=== PATIENT | female | born 1955 | race Caucasian/White ===

== ENCOUNTER 2018-06-07 01:28 | Outpatient (CLI) | payer BC, SELFPAY ==
[2018-06-07 12:56] LABS: Hemoglobin A1C 4.8 % (4.5-6.2)
[2018-06-07 12:59] LABS: COMMENT (LAB VIEW ONLY) 171.27 mg/dL; Microalb ug/mg Crea 4.8 ug/mg Cr
== END 2018-06-07 01:48 ==
PROVIDERS: PCP Family Medicine; Visit Provider Family Medicine
DX: E11.9 Type 2 diabetes mellitus without complications (principal)
CPT/HCPCS: 36415; 82043; 82570; 83036

== ENCOUNTER 2018-06-14 13:40 | Outpatient (CLI) | payer BC, SELFPAY ==
--- NOTE | 2018-06-14 13:32 | DI.RAD_ITS ---
SYMPTOMS/DIAGNOSIS: LT FOOT PAIN, M79.672, CELLULITIS, L03.90 LEFT FOOT: There are moderate degenerative changes involving the first metatarsal phalangeal joint and mild to moderate DJD involving the intertarsal and tarsal metatarsal joints are demonstrated. There is a 9 mm calcaneal spur. The examination is otherwise unremarkable.
[2018-06-14 14:16] LABS: Abs Immature Grans 0.01 k/cumm (0.0-0.09); Absolute Basophil Count 0.03 k/cumm (0.0-0.2); Absolute Lymphocyte Count 1.18 k/cumm (1.2-3.4); Absolute Monocyte Count 0.39 k/cumm (0.11-0.7); Absolute Neutrophil Count 2.49 k/cumm (1.2-6.7); Basophils % 0.7; Eosinophils % 4.7; HGB 13.9 g/dL (12.0-15.5); Immature Grans % 0.2; Lymphocytes % 27.4; Mean Corp. HGB Concentration 33.9 g/dL (32.0-36.0); Mean Corpuscular Hemoglobin 32.5 pg (27.0-33.0); Mean Corpuscular Volume 95.8 fL (80-95); Mean Platelet Volume 10.5 fL (8.0-11.0); Monocytes % 9.1; Neutrophils % 57.9; Platelet Count 86 x1000/uL (130-400); RBC 4.28 m/cumm (4.00-5.20); RBC Distribution Width 14.3 % (11.7-14.6)
[2018-06-14 14:44] LABS: Diff Comment PLT Morph Reviewed
[2018-06-14 15:11] LABS: C-Reactive Protein 2.47 mg/dL (0.0-0.3)
[2018-06-14 15:35] LABS: ESR 29 MM/HR (0-30)
[2018-06-14 15:57] LABS: Hemoglobin A1C 4.9 % (4.5-6.2)
== END 2018-06-14 14:00 ==
PROVIDERS: PCP Family Medicine; Visit Provider Family Medicine
DX: M79.672 Pain in left foot (principal); L03.116 Cellulitis of left lower limb; M19.072 Primary osteoarthritis, left ankle and foot; M77.32 Calcaneal spur, left foot; E11.9 Type 2 diabetes mellitus without complications
CPT/HCPCS: 36415; 85652; 73630; 83036; 85025; 86140

== ENCOUNTER 2019-04-11 10:34 | Inpatient (IN) | payer MEDICARE, BC, SELFPAY ==
[2019-04-11] VITALS (9 sets, daily range): BP systolic 101–144; BP diastolic 38–65; PULSE 71–103; RESP 16–20; TEMP 36.3–38.5; O2SAT 92–97
--- NOTE | 2019-04-11 10:43 | ED.GENADUL_ITS ---
Discharge Plan Disposition Patient Disposition: [facility] INPATIENT Condition: Poor Discharge Details Chief Complaint: Fever Clinical Impression: Sepsis, Cellulitis Admit Date/Time: 04/11/19 14:08 Admit Provider: Elliott Aguilar Attending Provider: Elliott Aguilar Primary Care Provider: Malu Baron ED Provider: Aki Oliva Discharge Data Discharge Date/Time-TO BE ENTERED AT DEPARTURE: 04/11/19 15:41 Medical Decision Making Patient presenting to the emergency department chief complaint of generalized malaise. Family member states since last night patient has been having a fever chills, and overall not feeling well. Today daughter states that patient seems more sedate and even had a hard time staying awake. Patient denies any focal complaints but daughter does state chronic wound of left lower extremity. Physical exam shows small open wound without drainage to left dorsal foot, bilateral lower extremity edema from the knee down, soft nontender nonrigid no peritoneal findings of the abdomen, patient does have known murmur, clear lung sounds, normal HEENT, patient is alert and oriented, slightly sedate but appropriately responding with no focal neurological deficits. Plan to check labs, blood cultures, urinalysis. Initial labs are reviewed and show elevated lactate of 3.9, nonspecific leukocytosis with WBCs of 11.77, CMP showing elevated bilirubin of 6.9 which is more elevated than patient's norm, AST of 51, alk phos of 155. Urine shows significant amount of proteins ketones and blood with moderate bilirubin but no leukocyte esterase, no nitrate. Pending radiological imaging of the chest and a bdomen patient treated with empiric antibiotics for fever of unknown source at this point but Vanco and Zosyn were ordered. IV fluids also ordered. Troponin was resulted at 0.12 which is indeterminate at this point with no EKG changes I feel this is more demand related. We will continue to monitor. Review of CT imaging and radiologist dictation shows no acute findings. Chest x-ray shows findings just above CHF. BNP was ordered and shows elevation to 982. Given the patient is febrile, tachycardiac, and elevated lactate I feel that patient meets sepsis criteria. Only possible source of wound is left lower extremity but I am not completely convinced this is her source of fever. Either way patient's infection should be covered by Vanco and Zosyn already ordered. Did call and speak with Dr. Aguilar about admission of patient. He agreed to have patient admission and bridge orders were placed. 3-hour troponin was ordered to assess for any further changes. Lab Data Lab results reviewed: Yes I reviewed the patient's lab results. ECG Data Attestation: I personally reviewed and interpreted this ECG (s) as follows: Prior ECG tracings: available for review Interpretation: EKG reviewed with attending physician Dr. Pretty and shows sinus rhythm with rate of 94, no acute ischemic changes noted, nondiagnostic. Reviewed previous EKG from 03/20/2016 and no changes noted HPI General Mode of arrival: wheelchair . Date/Time Provider Initiated Documentation: 04/11/19 10:35 . Limitations to Documentation: no limitations . Information obtained by: patient, family and RN notes reviewed . History of Present Illness 64 year old F presents to the emergency department with the chief complaint of Generalized malaise, Quality is described as other (Denies pain), Patient started experiencing this day(s) (1) and it has been constant. No exacerbating factors reported . Patient notes fever/chills. Patient did receive the following treatments prior to arrival, none Related Data Home Medications Medication Instructions Recorded Confirmed zinc sulfate 220 mg PO DAILY #90 tab-cap 01/10/17 04/11/19 pen needle, diabetic [BD #180 12/18/17 02/25/19 Ultra-Fine Orig Pen Needle] pantoprazole 40 mg PO DAILY #180 tab 02/22/18 04/11/19 ondansetron HCl 4 mg tablet 4 mg PO DAILY PRN #90 tab-cap 06/04/18 04/11/19 ferrous sulfate 325 mg (65 mg 325 mg PO DAILY tab 06/11/18 04/11/19 iron) tablet blood sugar diagnostic #300 strip 09/13/18 02/25/19 sucralfate 1 gram tablet 1 gm PO AC & HS #360 tab 10/22/18 04/11/19 lactulose 20 gram/30 mL oral 10 gm PO TID #1350 ml 12/18/18 04/11/19 solution insulin glargine 100 unit/mL (3 15 unit SUB-Q QAM ml 12/25/18 04/11/19 mL) subcutaneous pen rifaximin 550 mg tablet 550 mg PO BID #180 tab 01/28/19 04/11/19 furosemide 20 mg tablet 40 mg PO DAILY #180 cap 03/11/19 04/11/19 insulin lispro 200 unit/mL (3 mL) 6 unit SUBCUT BID #15 ml 03/26/19 04/11/19 subcutaneous pen pregabalin 100 mg capsule 100 mg PO TID #270 cap 04/08/19 04/11/19 Previous Rx's Medication Instructions Recorded pen needle, diabetic [BD #180 12/18/17 Ultra-Fine Orig Pen Needle] pantoprazole 40 mg PO DAILY #180 tab 02/22/18 ondansetron HCl 4 mg tablet 4 mg PO DAILY PRN #90 tab-cap 06/04/18 blood sugar diagnostic #300 strip 09/13/18 sucralfate 1 gram tablet 1 gm PO AC & HS #360 tab 10/22/18 lactulose 20 gram/30 mL oral 10 gm PO TID #1350 ml 12/18/18 solution rifaximin 550 mg tablet 550 mg PO BID #180 tab 01/28/19 furosemide 20 mg tablet 40 mg PO DAILY #180 cap 03/11/19 insulin lispro 200 unit/mL (3 mL) 6 unit SUBCUT BID #15 ml 03/26/19 subcutaneous pen pregabalin 100 mg capsule 100 mg PO TID #270 cap 04/08/19 Allergies Allergy/AdvReac Type Severity Reaction Status Date / Time gabapentin Allergy Intermediate Local Unverified 04/11/19 14:31 reaction on skin Review of Systems Constitutional Reports chills, Reports fatigue, Reports fever(s), Denies headache(s), Reports lethargy, Reports malaise and Reports poor appetite ENT Denies headache(s) Cardiovascular Denies chest pain and Denies dyspnea Respiratory Denies cough and Denies dyspnea Gastrointestinal Denies abdominal pain, Denies bloating, Denies diarrhea and Denies vomiting Genitourinary Denies difficulty voiding, Denies dysuria and Reports other (Daughter reports darkened urine) Integumentary/Breasts Reports wounds (Chronic wound left lower foot) Neurologic Denies headache(s) Endocrine Reports fatigue [facility] Medical History Abdominal pain, chronic, epigastric (Resolved 03/23/16) Annual physical exam (Resolved 02/22/18) Bleeding esophageal varices (Resolved 03/10/16) Carpal tunnel syndrome (Resolved) Cervical disc disorder with myelopathy (Resolved) Cervical disc disorder with myelopathy (Resolved 09/04/12) Chronic epigastric pain (Chronic 03/23/16) Edema, unspecified (Resolved) Elev transaminase/LDH (Resolved) Elevation of level of transaminase and lactic acid dehydrogenase (LDH) (Chronic) Esophageal varices with hemorrhage Fever, unknown origin (Resolved) GI bleed (Resolved) Hepatic encephalopathy Incisional hernia (Resolved 01/15/15) Incisional hernia (Chronic 01/15/15) Mild epistaxis (Resolved) Thyroid nodule (Resolved) Surgical History Colonoscopy - IV Sedation (04/12/13) Open Carpal Tunnel release PROCEDURES S/P carpal tunnel release (Resolved) S/P cervical spinal fusion (Resolved) S/P cervical spinal fusion (Resolved) S/P tonsillectomy (Resolved) Status post biopsy of thyroid gland (Resolved) Status post carpal tunnel release (Resolved) Status post cervical spinal arthrodesis (Resolved) Status post tonsillectomy (Resolved) Tonsillectomy Family History Mother Pancreatic cancer Father Diabetes Essential hypertension Stroke Sister Heart disease Brother Bone cancer Liver cancer Maternal Grandfather No problems noted. Paternal Grandfather No problems noted. Maternal Grandmother No problems noted. Paternal Grandmother Breast cancer Sister Diabetes Colon cancer Rectal cancer Sister Diabetes Son No problems noted. Son No problems noted. Daughter No problems noted. Daughter Alcohol abuse Asthma Social History Smoking/Tobacco Use Status: Former Tobacco Use Alcohol Intake: never Drug use: Never Household members: spouse and children Housing: house Communication Needs: None Do you need help understanding health information?: Rarely Pets and animals: Yes Pets and animals: dog(s) Sexually active: No Do you think of yourself as: straight/heterosexual Current gender identity: female What is your relationship status?: How often do you talk on the phone with friends or family?: three or more times per week How often do you get together with friends or relatives?: once per week How often do you attend baptism or holiness services?: 1-3 times per year Do you belong to any clubs or organized social groups?: no Panel score (0-1 are the most socially isolated patients): 2 What type of physical activity do you participate in: decline to answer Duration: < 15 minutes/day Frequency: 1-2 times per week Lyubov/Uatsdin: Worship Special lyubov needs: No Seatbelt use: always Helmet use: No Drive intox or ride w/intox meals on wheels driver: No Do you feel safe in your relationship?: Yes Exam Const General: cooperative and ill appearing Orientation: alert, awake and oriented x3 HENMT Head: normal to inspection and normocephalic Ears: hearing grossly normal bilaterally, external ears normal and TM's normal bilaterally General nose exam: external nose normal Mouth: oral mucosae normal, lip normal, tongue normal and moist mucous membranes Throat: posterior oropharynx normal Eyes Sclera: scleral abnormality bilaterally other (Scleral icterus) Resp Effort & Inspection: normal respiratory effort, able to speak in complete sentences and no respiratory distress Auscultation: clear to auscultation bilaterally Cardio Rate: regular rate Rhythm: regular rhythm Heart Sounds: murmur systolic holo and IV/ GI Inspection: distended Palpation: soft, not firm, no guarding, no hepatomegaly, not rigid and nontender Auscultation: normal bowel sounds Back/Spine/Pelvis Back: no CVA tenderness Neuro General: alert, awake, oriented x3, moves all extremities, no focal motor deficits and CN's II-XI intact bilaterally Sensory Exam: no sensory deficits noted Extrem General: edema Laterality: bilateral (3+) Course Lab/Test Results Lab/Test Results: 04/11/19 10:39 Blood Blood Culture - Pending 04/11/19 10:39 Blood Blood Culture - Pending
[2019-04-11] MEDS: Normal Saline Flush 10 ML SYR IVP (10:50)
[2019-04-11 11:06] LABS: Abs Immature Grans 0.03 k/cumm (0.0-0.09); Absolute Basophil Count 0.01 k/cumm (0.0-0.2); Absolute Eosinophil Count 0.01 k/cumm (0.0-0.7); Absolute Lymphocyte Count 0.61 k/cumm (1.2-3.4); Absolute Monocyte Count 0.64 k/cumm (0.11-0.7); Basophils % 0.1; Eosinophils % 0.1; HCT 40.7 % (36.0-46.0); HGB 14.2 g/dL (12.0-15.5); Immature Grans % 0.3; Lymphocytes % 5.2; Mean Corp. HGB Concentration 34.9 g/dL (32.0-36.0); Mean Corpuscular Hemoglobin 33.6 pg (27.0-33.0); Mean Corpuscular Volume 96.2 fL (80-95); Mean Platelet Volume 10.2 fL (8.0-11.0); Monocytes % 5.4; RBC 4.23 m/cumm (4.00-5.20); RBC Distribution Width 14.9 % (11.7-14.6); White Blood Cell Count 11.77 k/cumm (4.4-10.8)
[2019-04-11 11:12] LABS: Lactate-non-spesis 3.9 mmol/l (0.6-1.4)
[2019-04-11 11:20] LABS: Absolute Neutrophil Count 10.46 k/cumm (1.2-6.7); Platelet Count 67 x1000/uL (130-400)
[2019-04-11 11:21] LABS: Ammonia 14 umol/L (11-32); Neutrophils % 88.9
[2019-04-11 11:22] LABS: Diff Comment Diff Reviewed; RBC Morphology Normal
[2019-04-11] MEDS: Normal Saline 250 ML 500 ML IV (11:30)
[2019-04-11 11:37] LABS: ALT 31 U/L (12-78); AST 51 U/L (15-37); Albumin 2.3 g/dL (3.4-5.0); Alkaline Phosphatase 155 U/L (46-116); Anion Gap 11.1 mmol/L (3-11); BUN 14 mg/dL (7-18); Bilirubin, Total 6.9 mg/dL (0.2-1.0); CO2 25.9 mmol/L (21.0-32.0); CREATININE 0.93 mg/dL (0.55-1.02); Calcium 8.5 mg/dL (8.5-10.1); Chloride 102 mmol/L (98-107); Glucose 178 mg/dL (70-100); Magnesium 1.3 mg/dL (1.8-2.4); Potassium 3.5 mmol/L (3.5-5.1); Sodium 139 mmol/L (136-145)
[2019-04-11 11:37] LABS: Bilirubin Moderate (Negative); Blood Moderate (Negative); Clarity Sl Cloudy (Clear); Glucose Negative (Negative); Ketones 15 mg/dL (Negative); Leukocyte Esterase Negative (Negative); Nitrite Negative (Negative); Specific Gravity 1.025 (1.005-1.025); Urobilinogen 0.2 EU/dL (Up TO 0.2)
[2019-04-11 11:39] LABS: Troponin I 0.12 ng/mL (0.00-0.06)
--- NOTE | 2019-04-11 11:44 | DI.RAD_ITS ---
SYMPTOMS/DIAGNOSIS: FEVER AP AND LATERAL CHEST: Comparison is made with [id number]. The exam is somewhat limited by the patient's body habitus and technique. The heart appears mildly enlarged. There are bilateral increased vascular markings and mildly increased symmetric interstitial markings which could indicate mild CHF. No focal infiltrate or effusion is seen. IMPRESSION: Mild cardiomegaly and mild CHF.
--- NOTE | 2019-04-11 11:44 | DI.CT_ITS ---
SYMPTOMS/DIAGNOSIS: FEVER, CIRRHOSIS CT OF THE ABDOMEN AND PELVIS: Comparison is made with [id number]. A cirrhotic appearing liver with tip shunt is again noted. Metallic coils are seen in the left upper and upper mid abdomen. There is stable splenomegaly. No abscess or free air is seen. There is diffuse body edema. There is a trace amount of mesenteric fluid. The lung bases are clear. No bowel dilatation or inflammatory changes are seen. The adrenals are unremarkable. There is a tiny nonobstructing stone in the mid left kidney. The bladder, uterus and ovaries are unremarkable. Fatty containing umbilical and infraumbilical hernias are again noted. IMPRESSION: Stable appearance of cirrhotic liver and splenomegaly. There is body wall edema and minimal fluid in the pelvis. No acute abnormality is seen.
[2019-04-11 12:02] LABS: Epithelial Cells Few HPF (Negative); RBC >50 (0-2)
[2019-04-11 12:03] LABS: Bacteria Many HPF (Negative); C & S Indicated? Yes; Casts 3-5 Fine Granular LPF (Negative); Crystals Negative HPF (Negative); Mucus Moderate (Negative); Other Cells Moderate Renal (Negative)
[2019-04-11 12:28] LABS: NT-proBNP 982 pg/mL
[2019-04-11] MEDS: Omnipaque 350 MG/ML 100 ML BTL IJ ×2 (12:47→19:04)
[2019-04-11] MEDS: Normal Saline 250 ML IV (13:07)
[2019-04-11] MEDS: Ibuprofen 600 MG TAB PO (13:08)
[2019-04-11] MEDS: PIPERACILLIN/TAZO 3.375 GM in Normal Saline 50 ML IVPB (13:23)
[2019-04-11] MEDS: VANCOMYCIN 1,250 MG in Normal Saline 250 ML 166.667 MG IVPB (13:58)
[2019-04-11 16:09] LABS: Troponin I 0.14 ng/mL (0.00-0.06)
--- NOTE | 2019-04-11 17:06 | W.PM.HP.N ---
Date of service: 04/11/19 Time of Service: 17:07 Assessment and Plan (1) Fever: Current visit: Yes Status: Acute Evidence of fever, leukocytosis, and elevated lactate, and now with development of tachycardia and hypotension. Suspect infectious etiology - however, with negative urinalysis and CXR, and LE exam is not overtly impressive for cellulitis at this time. - Await Blood Cultures. - CT a/p without infectious pathology, and CXR without infiltrate. Obtain CT Chest to ensure lack of pathology. - Potential for volume overload by CXR and patient's history of - however, given development of hypotension and tachycardia will benefit from fluids, with careful monitoring of volume status. Continue Vancomycin/Zosyn empircally. (2) Aortic stenosis, severe: Current visit: No Status: Acute Severe, with preserved LVEF. - Monitor volume status carefully. - Continue current diuretic therapy with Furosemide. May ultimately require some diuresis, but currently with potential development of sepsis and requiring fluids. Monitor respiratory status carefully. - Avoid vasodilators. (3) Cirrhosis: Current visit: No Status: Chronic S/p TIPS in 2016. Continue Lasix - intolerant of Spironolactone in the past. Also on Lactulose and Rifaxan in the past, with a prior history of hepatic encephalopathy. (4) Diabetes mellitus: Current visit: No Status: Chronic Continue lantus, initiate sliding scale. (5) DVT prophylaxis: Current visit: Yes Status: Acute History of Cirrhosis, esophageal Varices, but with synthetic function intact, essentially normal INR, and s/p TIPS. initiate SC Heparin, but monitor Hgb carefully. (6) Advance directive on file: Current visit: Yes Status: Acute Full Code. History of Present Illness Chief Complaint: Fever, Malaise Narrative: 64 year old woman with a prior history of LE Cellulitis and Cirrhosis, being admitted from [facility] Emergency Department on 04/11 with a diagnosis of Fever. Mrs. Calle has a Past Medical History significant for Non-alcoholic Steatohepatitis diagnosed in 2016 following a GIB. She had been hospitalized with reported Hematemesis, with ensuing endoscopy and inadvertent biopsy of a Gastric Varix which caused significant blood loss and acute transfer to tertiary center. [place] [facility] [place] was diagnosed with Cirrhosis of the liver, Portal Hypertension, and Hepatic Encephalopathy requiring an urgent TIPS procedure. Her other history includes obesity, HTN, Dyslipidemia, Chronic Venous Stasis, IDDM, and PHTN. Her ECHO from earlier this month also showed evidence of severe Aortic Stenosis with an intact LVEF. She has what appears to be a somewhat chronic The patient presented to the ED at the urging of her daughter, with a reported 1-2 day course of feeling unwell. She reported subjective nausea and decreased appetite, and daughter states that she had a documented fever at home. Work-up in the ED showed evidence of a fever and tachycardia, mild leukocytosis, and elevated Lactate. Her EKG was unchanged, and troponin was minimally and equivocally elevated, essentially unchanged on recheck. Urinalysis was negative for infection, CXR showed potential mild CHF, and CT a/p was remarkable for stable cirrhosis and splenomegally. She was admitted for further evaluation and treatment. Review of Systems Review of Systems All systems reviewed & are unremarkable except as noted in HPI and below PFSH Medical History Abdominal pain, chronic, epigastric (Resolved 03/23/16) Annual physical exam (Resolved 02/22/18) Bleeding esophageal varices (Resolved 03/10/16) Carpal tunnel syndrome (Resolved) Cervical disc disorder with myelopathy (Resolved) Cervical disc disorder with myelopathy (Resolved 09/04/12) Chronic epigastric pain (Chronic 03/23/16) Edema, unspecified (Resolved) Elev transaminase/LDH (Resolved) Elevation of level of transaminase and lactic acid dehydrogenase (LDH) (Chronic) Esophageal varices with hemorrhage Fever, unknown origin (Resolved) GI bleed (Resolved) Hepatic encephalopathy Incisional hernia (Resolved 01/15/15) Incisional hernia (Chronic 01/15/15) Mild epistaxis (Resolved) Thyroid nodule (Resolved) Surgical History Colonoscopy - IV Sedation (04/12/13) Open Carpal Tunnel release PROCEDURES S/P carpal tunnel release (Resolved) S/P cervical spinal fusion (Resolved) S/P cervical spinal fusion (Resolved) S/P tonsillectomy (Resolved) Status post biopsy of thyroid gland (Resolved) Status post carpal tunnel release (Resolved) Status post cervical spinal arthrodesis (Resolved) Status post tonsillectomy (Resolved) Tonsillectomy Family History Mother Pancreatic cancer Father Diabetes Essential hypertension Stroke Sister Heart disease Brother Bone cancer Liver cancer Maternal Grandfather No problems noted. Paternal Grandfather No problems noted. Maternal Grandmother No problems noted. Paternal Grandmother Breast cancer Sister Diabetes Colon cancer Rectal cancer Sister Diabetes Son No problems noted. Son No problems noted. Daughter No problems noted. Daughter Alcohol abuse Asthma Social History Smoking/Tobacco Use Status: Former Tobacco Use Alcohol Intake: never Drug use: Never Household members: spouse and children Housing: house Communication Needs: None Do you need help understanding health information?: Rarely Pets and animals: Yes Pets and animals: dog(s) Sexually active: No Do you think of yourself as: straight/heterosexual Current gender identity: female What is your relationship status?: How often do you talk on the phone with friends or family?: three or more times per week How often do you get together with friends or relatives?: once per week How often do you attend taoist or sikh services?: 1-3 times per year Do you belong to any clubs or organized social groups?: no Panel score (0-1 are the most socially isolated patients): 2 What type of physical activity do you participate in: decline to answer Duration: < 15 minutes/day Frequency: 1-2 times per week Lyubov/Roman Catholic: Presybeterian Special lyubov needs: No Seatbelt use: always Helmet use: No Drive intox or ride w/intox local company flatbed truck driver: No Do you feel safe in your relationship?: Yes Meds Home Medications Medication Instructions Recorded Confirmed Type zinc sulfate 220 mg PO DAILY #90 tab-cap 01/10/17 04/11/19 History pen needle, diabetic [BD #180 12/18/17 02/25/19 Rx Ultra-Fine Orig Pen Needle] pantoprazole 40 mg PO DAILY #180 tab 02/22/18 04/11/19 Rx ondansetron HCl 4 mg tablet 4 mg PO DAILY PRN #90 tab-cap 06/04/18 04/11/19 Rx ferrous sulfate 325 mg (65 mg 325 mg PO DAILY tab 06/11/18 04/11/19 History iron) tablet blood sugar diagnostic #300 strip 09/13/18 02/25/19 Rx sucralfate 1 gram tablet 1 gm PO AC & HS #360 tab 10/22/18 04/11/19 Rx lactulose 20 gram/30 mL oral 10 gm PO TID #1350 ml 12/18/18 04/11/19 Rx solution insulin glargine 100 unit/mL (3 15 unit SUB-Q QAM ml 12/25/18 04/11/19 History mL) subcutaneous pen rifaximin 550 mg tablet 550 mg PO BID #180 tab 01/28/19 04/11/19 Rx furosemide 20 mg tablet 40 mg PO DAILY #180 cap 03/11/19 04/11/19 Rx insulin lispro 200 unit/mL (3 mL) 6 unit SUBCUT BID #15 ml 03/26/19 04/11/19 Rx subcutaneous pen pregabalin 100 mg capsule 100 mg PO TID #270 cap 04/08/19 04/11/19 Rx Allergies Allergy/AdvReac Type Severity Reaction Status Date / Time gabapentin Allergy Intermediate Local Unverified 04/11/19 14:31 reaction on skin Exam Narrative Exam Narrative: General: Patient appears acutely ill but not toxic, somnolent but arousable and appropriate Neck: Supple CV: Regular, nontachycardic at time of exam, S1S2, 4/6 RUSB murmur appreciated. Pulmonary: Mild, bibasilar crackles on exam somewhat limited by body habitus Abdomen: + Bowel Sounds, soft, nontender, nondistended but obese in contour Vascular: 2+ b/l LE edema. Skin: Prominent hyperpigmentation of b/l Lower Extremities. Left Leg is perhaps mildly warmer than right, but no significant erythema or cellulitic changes. Very small open wound on left foot that is reported as chronic, without significant purulence, induration, or fluctuance. Psych: Normal mood and affect. Results Imaging Chest x-ray: report reviewed and image reviewed Abdomen CT scan report/results: report reviewed Labs : 04/11/19 10:50 04/11/19 10:50 Laboratory Results - last 24 hr 04/11/19 04/11/19 04/11/19 10:50 10:50 10:50 WBC RBC Hgb Hct MCV MCH MCHC RDW Plt Count MPV Immature Gran % Neutrophils % Lymphocytes % Monocytes % Eosinophils % Basophils % Absolute Neutrophils Absolute Lymphocytes Absolute Monocytes Absolute Eosinophils Absolute Basophils Differential Comment RBC Morphology Sodium 139 Potassium 3.5 Chloride 102 Carbon Dioxide 25.9 Anion Gap 11.1 H BUN 14 Creatinine 0.93 Estimated GFR/1.73 m2 >= 60.00 Glucose 178 H Lactate 3.9 H Calcium 8.5 Magnesium 1.3 L Total Bilirubin 6.9 H AST 51 H ALT 31 Alkaline Phosphatase 155 H Ammonia 14 Troponin I 0.12 H* NT-Pro-B Natriuret Pep Total Protein 6.0 L Albumin 2.3 L Urine Color Urine Clarity Urine pH Ur Specific [place] Urine Protein Urine Ketones Urine Blood Urine Nitrite Urine Bilirubin Urine Urobilinogen Ur Leukocyte Esterase Urine RBC Urine WBC Ur Epithelial Cells Urine Crystals Urine Bacteria Urine Casts Urine Mucus Urine Other Ur Culture Indicated? Urine Glucose 04/11/19 04/11/19 04/11/19 10:50 10:50 10:50 WBC 11.77 H RBC 4.23 Hgb 14.2 Hct 40.7 MCV 96.2 H MCH 33.6 H MCHC 34.9 RDW 14.9 H Plt Count 67 L MPV 10.2 Immature Gran % 0.3 Neutrophils % 88.9 Lymphocytes % 5.2 Monocytes % 5.4 Eosinophils % 0.1 Basophils % 0.1 Absolute Neutrophils 10.46 H Absolute Lymphocytes 0.61 L Absolute Monocytes 0.64 Absolute Eosinophils 0.01 Absolute Basophils 0.01 Differential Comment Diff reviewed RBC Morphology Normal Sodium Potassium Chloride Carbon Dioxide Anion Gap BUN Creatinine Estimated GFR/1.73 m2 Glucose Lactate Calcium Magnesium Cancelled Total Bilirubin AST ALT Alkaline Phosphatase Ammonia Troponin I Cancelled NT-Pro-B Natriuret Pep 982 H Total Protein Albumin Urine Color Urine Clarity Urine pH Ur Specific [place] Urine Protein Urine Ketones Urine Blood Urine Nitrite Urine Bilirubin Urine Urobilinogen Ur Leukocyte Esterase Urine RBC Urine WBC Ur Epithelial Cells Urine Crystals Urine Bacteria Urine Casts Urine Mucus Urine Other Ur Culture Indicated? Urine Glucose 04/11/19 04/11/19 11:25 14:12 WBC RBC Hgb Hct MCV MCH MCHC RDW Plt Count MPV Immature Gran % Neutrophils % Lymphocytes % Monocytes % Eosinophils % Basophils % Absolute Neutrophils Absolute Lymphocytes Absolute Monocytes Absolute Eosinophils Absolute Basophils Differential Comment RBC Morphology Sodium Potassium Chloride Carbon Dioxide Anion Gap BUN Creatinine Estimated GFR/1.73 m2 Glucose Lactate Calcium Magnesium Total Bilirubin AST ALT Alkaline Phosphatase Ammonia Troponin I 0.14 H* NT-Pro-B Natriuret Pep Total Protein Albumin Urine Color Jenna Urine Clarity Sl cloudy Urine pH 5.0 Ur Specific [place] 1.025 Urine Protein 30 H Urine Ketones 15 H Urine Blood Moderate H Urine Nitrite Negative Urine Bilirubin Moderate H Urine Urobilinogen 0.2 Ur Leukocyte Esterase Negative Urine RBC >50 H Urine WBC 5-10 Ur Epithelial Cells Few Urine Crystals Negative Urine Bacteria Many Urine Casts 3-5 fine granular Urine Mucus Moderate Urine Other Moderate renal Ur Culture Indicated? Yes Urine Glucose Negative Last Vital Signs Temp 36.5 C 04/11/19 16:36 Pulse 103 H 04/11/19 16:36 Resp 19 04/11/19 16:36 BP 101/48 L 04/11/19 16:36 Pulse Ox 95 04/11/19 16:36
[2019-04-11] MEDS: MAGNESIUM SULFATE 4 GM/100 ML BAG IVPB (17:38)
[2019-04-11] MEDS: Enoxaparin 40 MG/0.4 ML SYR SC (18:12)
[2019-04-11] MEDS: Insulin Aspart 300 UNITS/3 ML PEN SC (18:13)
[2019-04-11] MEDS: Potassium Chloride 20 MEQ TABCR 40 MEQ PO (18:23)
--- NOTE | 2019-04-11 19:05 | DI.CT_ITS ---
SYMPTOM/DIAGNOSIS: RULE OUT PNEUMONIA CHEST CT: Comparison is made with chest x-ray performed earlier the same day. The exam is mildly limited by patient motion. There is a ground glass opacity seen in the left lower lobe laterally which is nonspecific. No pleural or pericardial effusions or focal consolidations seen. There are mild underlying increased interstitial changes throughout the lungs which may represent chronic fibrosis. There is interlobular septal thickening at the lung bases consistent with mild CHF. There is also mild body wall edema. There is asymmetry near the chest wall in the region of the left breast which also likely represents edema. There are coronary artery calcifications as well as mitral aortic valve calcifications. There is enlargement of the left ventricle. The aorta is normal in diameter and shows mild to moderate calcification. There is no adenopathy or suspicious pulmonary nodules. There is a small hiatal hernia. There is a lucency and upper thoracic vertebral body likely representing an hemangioma. Degenerative changes are seen throughout. There is a lower cervical anterior fusion. A TIPP shunt is noted. Varices are noted adjacent to the stomach. IMPRESSION: Mild lower lobe pulmonary edema and body wall edema. Small ground glass opacity in the left lower lobe, infectious or inflammatory.
--- NOTE | 2019-04-11 19:21 | DI.VRAD_ITS ---
EXAM: CT Chest With Contrast EXAM DATE/TIME: 04/11/2019 4:55 PM CLINICAL HISTORY: 64 years old, female; Other: R/O pneumonia TECHNIQUE: Imaging protocol: Axial computed tomography images of the chest with intravenous contrast. Coronal and sagittal reformatted images were created and reviewed. Radiation optimization: All CT scans at this facility use at least one of these dose optimization techniques: automated exposure control; mA and/or kV adjustment per patient size (includes targeted exams where dose is matched to clinical indication); or iterative reconstruction. Contrast material: OMNIPAQUE 350;Contrast volume: 70 ml;Contrast route: IV; COMPARISON: CR XR CHEST 2V PA LATERAL 04/11/2019 12:57 PM FINDINGS: Lungs: There is a small ground glass opacity within the posterior lateral left lower lobe on axial images 39 through 44, nonspecific. Minimal dependent atelectasis and/or scar in the lung bases. No pulmonary consolidation. Pleural space: Unremarkable. No pneumothorax. No pleural effusion. Heart: Unremarkable. No cardiomegaly. No pericardial effusion. Mediastinum: Aorta: Unremarkable. No aortic aneurysm. Lymph nodes: Unremarkable. No enlarged lymph nodes. Bones/joints: Degenerative spondylosis of the thoracic spine. Anterior spinal fusion at C6-C7. Soft tissues: 2 cm diameter focal density within the lateral left breast (axial images 34 through 36). Correlate with mammography. Liver: Hepatic cirrhosis. Status post TIPS. Spleen: Splenomegaly. Multiple embolization coils within the splenic hilum. Other findings: Gastroesophageal varices. IMPRESSION: 1. Nonspecific groundglass opacity within the posterior lateral left lower lobe. 2. Other nonemergent findings as described above. 3. 2 cm diameter focal density within the lateral left breast. Correlate with mammography. Dictated and Authenticated by: Mario Yadav MD. Ordering:CHARLES Gallagher MD
[2019-04-11] MEDS: Normal Saline 1,000 ML 125 ML IV (19:40)
[2019-04-11] MEDS: Pregabalin 100 MG CAP PO (19:42)
[2019-04-11] MEDS: Rifaximin 550 MG TAB PO (19:43)
[2019-04-11] MEDS: Lactulose 20 GM/30 ML CUP 10 GM PO (19:44)
[2019-04-11 19:52] LABS: Procalcitonin 6.3 ng/mL
[2019-04-11 20:23] LABS: Lactate-non-spesis 4.2 mmol/l (0.6-1.4)
[2019-04-11 20:51] LABS: Troponin I 0.09 ng/mL (0.00-0.06)
[2019-04-11] MEDS: Sucralfate 1 GM TAB PO (22:22)
[2019-04-11] MEDS: PIPERACILLIN/TAZO 4.5 GM in Normal Saline 100 ML IVPB (22:23)
[2019-04-12] VITALS (15 sets, daily range): BP systolic 112–145; BP diastolic 61–77; PULSE 72–91; RESP 14–17; TEMP 35.7–38.7; O2SAT 94–98
[2019-04-12] MEDS: PIPERACILLIN/TAZO 4.5 GM in Normal Saline 100 ML IVPB ×3 (06:47→22:22)
[2019-04-12 06:55] LABS: Lactate-non-spesis 2.1 mmol/l (0.6-1.4)
[2019-04-12 07:14] LABS: Abs Immature Grans 0.03 k/cumm (0.0-0.09); Absolute Basophil Count 0.03 k/cumm (0.0-0.2); Absolute Eosinophil Count 0.23 k/cumm (0.0-0.7); Absolute Lymphocyte Count 0.84 k/cumm (1.2-3.4); Absolute Monocyte Count 0.97 k/cumm (0.11-0.7); Absolute Neutrophil Count 6.25 k/cumm (1.2-6.7); Basophils % 0.4; Eosinophils % 2.8; HCT 40.8 % (36.0-46.0); HGB 13.7 g/dL (12.0-15.5); Immature Grans % 0.4; Lymphocytes % 10.1; Mean Corp. HGB Concentration 33.6 g/dL (32.0-36.0); Mean Corpuscular Hemoglobin 32.5 pg (27.0-33.0); Mean Corpuscular Volume 96.9 fL (80-95); Mean Platelet Volume 10.6 fL (8.0-11.0); Monocytes % 11.6; Neutrophils % 74.7; RBC 4.21 m/cumm (4.00-5.20); RBC Distribution Width 14.6 % (11.7-14.6); White Blood Cell Count 8.35 k/cumm (4.4-10.8)
[2019-04-12 07:35] LABS: ALT 30 U/L (12-78); AST 43 U/L (15-37); Alkaline Phosphatase 130 U/L (46-116); Anion Gap 7.4 mmol/L (3-11); BUN 28 mg/dL (7-18); Bilirubin, Direct 2.96 mg/dL (0.00-0.20); Bilirubin, Total 4.7 mg/dL (0.2-1.0); CO2 30.6 mmol/L (21.0-32.0); CREATININE 0.82 mg/dL (0.55-1.02); Calcium 8.2 mg/dL (8.5-10.1); Chloride 104 mmol/L (98-107); Glucose 121 mg/dL (70-100); Magnesium 2.2 mg/dL (1.8-2.4); Potassium 3.5 mmol/L (3.5-5.1); Sodium 142 mmol/L (136-145); Total Protein 5.5 g/dL (6.4-8.2); Troponin I 0.06 ng/mL (0.00-0.06)
[2019-04-12 07:41] LABS: Platelet Count 60 x1000/uL (130-400)
[2019-04-12] MEDS: Pregabalin 100 MG CAP PO ×3 (07:57→19:49)
[2019-04-12] MEDS: Furosemide 40 MG TAB PO (07:58)
[2019-04-12] MEDS: Rifaximin 550 MG TAB PO ×2 (07:58→19:50)
[2019-04-12] MEDS: Sucralfate 1 GM TAB PO ×4 (08:00→22:23)
[2019-04-12] MEDS: Zinc Sulfate 220 MG TAB PO (08:02)
[2019-04-12] MEDS: Pantoprazole 40 MG TABCR PO (08:02)
[2019-04-12] MEDS: Ferrous Sulfate 325 MG TAB PO (08:03)
[2019-04-12] MEDS: Lactulose 20 GM/30 ML CUP 10 GM PO ×3 (08:04→19:48)
[2019-04-12] MEDS: Insulin Glargine 300 UNITS/3 ML PEN 15 UNITS SC (08:08)
[2019-04-12] MEDS: Potassium Chloride 20 MEQ TABCR 40 MEQ PO (11:24)
--- NOTE | 2019-04-12 12:00 | DI.US_ITS ---
SYMPTOMS/DIAGNOSIS: CELLULITIS LT LOWER EXTREMITY, ? DVT LEFT LOWER EXTREMITY ULTRASOUND: Comparison is made with [id number]. Edema is seen in the thigh as well as calf. No deep venous or superficial venous thrombosis is seen. There is no evidence of a mendoza's cyst. Left groin lymph nodes are again noted, the largest measuring 2.5 cm, consistent with a reactive lymph node. IMPRESSION: Significant lower extremity edema. No evidence of DVT.
--- NOTE | 2019-04-12 12:13 | PT.INIE ---
Date of service: 04/11/19 Time of Service: 09:59 PT Notes Inpatient Physical Therapy Evaluation Date: 04/12/2019 Referring Doctor: Elliott Aguilar MD PT Orders: PT CONSULT: Eval/treat Precautions: Fall. Standard. Patient Profile/Admitting Diagnosis: Patient is a 64-year-old female with past medical history significant for diabetes mellitus who presented to the ED on 04/11/2019 with daughter with chief complaints of fever, generalized malaise, difficulty staying awake, and a chronic wound left LE. Patient was diagnosed with fever and aortic stenosis. PMHX: Medical History Abdominal pain, chronic, epigastric (Resolved 03/23/16) Annual physical exam (Resolved 02/22/18) Bleeding esophageal varices (Resolved 03/10/16) Carpal tunnel syndrome (Resolved) Cervical disc disorder with myelopathy (Resolved) Cervical disc disorder with myelopathy (Resolved 09/04/12) Chronic epigastric pain (Chronic 03/23/16) Edema, unspecified (Resolved) Elev transaminase/LDH (Resolved) Elevation of level of transaminase and lactic acid dehydrogenase (LDH) (Chronic) Esophageal varices with hemorrhage Fever, unknown origin (Resolved) GI bleed (Resolved) Hepatic encephalopathy Incisional hernia (Resolved 01/15/15) Incisional hernia (Chronic 01/15/15) Mild epistaxis (Resolved) Thyroid nodule (Resolved) Surgical History Colonoscopy - IV Sedation (04/12/13) Open Carpal Tunnel release PROCEDURES S/P carpal tunnel release (Resolved) S/P cervical spinal fusion (Resolved) S/P cervical spinal fusion (Resolved) S/P tonsillectomy (Resolved) Status post biopsy of thyroid gland (Resolved) Status post carpal tunnel release (Resolved) Status post cervical spinal arthrodesis (Resolved) Status post tonsillectomy (Resolved) Tonsillectomy Social History/Home Situation: Patient lives with and daughter in a two-floor house with two steps to enter with rails on both sides. She has everything she needs on the main floor and does not need to go up to her craft room on the second floor that often. She is independent with all aspects of her ADLs without the need for an assistive ambulatory device nor adaptive equipment. She still drives, cooks meals, and does grocery shopping independently. Equipment Owned/DME: Patient states that her has canes that he previously used Subjective: Patient reports that she feels a lot better compared to when she first got into the ED yesterday. The daughter states that the antibiotic she is taking may have helped a lot. She is more awarke too and hopefully patient can go home with family as soon as she can. When asked if she has used a walker before and if she will use one if needed, she adamantly refused. She denies any headache, chest pains, and dizziness throughout PT session today. She reports that she has had no fevers since early childhood worker today. Objective: General Observation: Patient seen resting on recliner with feet elevated. Brawny edema thruoghout B LE with L>R. Open area on the dorsum between 2nd and 3rd toes on the left foot. IV on the R UE. B TEDS on legs. Mental Status: Alert and oriented x 4 Pain: 1-2/10 on palpation on the medial aspect of the left thigh ROM: Right Upper Extremity: Shoulder Flexion WFL. Shoulder abduction WFL. Elbow flexion WFL. Wrist flexion WFL. Functional opening and closing of hand WFL. Left Upper Extremity: Shoulder Flexion WFL. Shoulder abduction WFL. Elbow flexion WFL. Wrist flexion WFL. Functional opening and closing of hand WFL. Right Lower Extremity: Hip flexion WFL. Hip abduction WFL. Knee flexion WFL. Ankle dorsiflexion WFL. Ankle plantarflexion WFL. Left Lower Extremity: Hip flexion WFL. Hip abduction WFL. Knee flexion WFL. Ankle dorsiflexion WFL. Ankle plantarflexion WFL. Strength: Right Upper Extremity: Shoulder flexors 5/5. Shoulder abductors 5/5. Elbow flexors 5/5. Elbow extensors 5/5. Feeder Worker Power Unit Operator strong. Left Upper Extremity: Shoulder flexors 5/5. Shoulder abductors 5/5. Elbow flexors 5/5. Elbow extensors 5/5. Feeder Worker Power Unit Operator strong. Right Lower Extremity: Hip flexors 5/5. Hip abductors 5/5. Knee flexors 5/5. Knee extensors 5/5. Ankle dorsiflexors 5/5. Ankle plantarflexors 5/5. Left Lower Extremity:Hip flexors 5/5. Hip abductors 5/5. Knee flexors 5/5. Knee extensors 5/5. Ankle dorsiflexors 5/5. Ankle plantarflexors 5/5. Sensation: Intact as to pain and pressure on bilateral lower extremities. Bed Mobility/Transfers: Rolling I Supine to sit I Sit to supine I Sit to stand I Stand to sit I Bed to chair I Chair to bed I Gait: patient was able to ambulate level surface ambulation of 50 feet without an assistive device and without an increase in pain complaint on the L LE Balance: Static Sitting: Normal Dynamic Sitting: Normal Static Standing: Good Dynamic Standing: Good Special Tests: Mobility Limitations Standardized Measure [facility] 6 clicks Basic Mobility Inpatient Short Form: Raw Score: 24 [facility] Score: 0.0% Assessment: Patient is currently at baseline mobility level being able to ambulate at least 50 feet of level surface ambulation without increase in L LE pain and without dyspnea. She does not require any assistive ambulatory device. No skilled physical therapy services are warranted at this time. Patient is assessed as a 97243 low complexity based on the following: History: 64-year-old cognitively intact female with premorbid independent mobility level with diagnosis of severe aortic stenosis Examination: Independent bed mobility, transfer and ambulation task performance Presentation:Evolving Decision Makin Low complexity DISCHARGE RECOMMENDATIONS: Patient is currently at baseline level for all transfer and ambulation task performance using no assistve ambulatory device. No equipment needs at this time. TREATMENT CODE/TIME: 62800 x 34 minutes beginning at 9:59 AM. Thank you very much for this referral. Gill Hill PT, DPT, CLT [facility]
--- NOTE | 2019-04-12 12:19 | PDOC.CMIN ---
- If Service Date Differs Date of service: 04/12/19 Time of Service: 12:19 Care Management Initial Assess REASON FOR HOSPITALIZATION:: fever PAST MEDICAL HISTORY/PAST SURGICAL HISTORY:: Medical History: Abdominal pain, chronic, epigastric (Resolved 03/23/16). Annual physical exam (Resolved 02/22/18). Bleeding esophageal varices (Resolved 03/10/16). Carpal tunnel syndrome (Resolved). Cervical disc disorder with myelopathy (Resolved). Cervical disc disorder with myelopathy (Resolved 09/04/12). Chronic epigastric pain (Chronic 03/23/16). Edema, unspecified (Resolved). Elev transaminase/LDH (Resolved). Elevation of level of transaminase and lactic acid dehydrogenase (LDH) (Chronic). Esophageal varices with hemorrhage. Fever, unknown origin (Resolved). GI bleed (Resolved). Hepatic encephalopathy. Incisional hernia (Resolved 01/15/15). Incisional hernia (Chronic 01/15/15). Mild epistaxis (Resolved). Thyroid nodule (Resolved). Surgical History: Colonoscopy - IV Sedation (04/12/13). Open Carpal Tunnel release. PROCEDURES. S/P carpal tunnel release (Resolved). S/P cervical spinal fusion (Resolved). S/P cervical spinal fusion (Resolved). S/P tonsillectomy (Resolved). Status post biopsy of thyroid gland (Resolved). Status post carpal tunnel release (Resolved). Status post cervical spinal arthrodesis (Resolved). Status post tonsillectomy (Resolved). Tonsillectomy PREVIOUS FUNCTIONAL STATUS/SOCIAL/FAMILY SUPPORTS:: Mayra lives in a single family home in [place] with her and daughter. She has 3 other grown children. Mayra is not currently employed. She is independent with all ADLs and activities. CURRENT FUNCTIONAL STATUS:: Mayra was lying in bed during CM visit. She was pleasnat and courteous and amenable to answering questions. She currently does not have any services at home and does not anticipate needing any at discharge. ADVANCE DIRECTIVES:: Germain Calle [facility] [phone] Has patient been provided with information about the portal?: No Did the patient sign up for the portal?: No CODE STATUS:: Full Code INSURANCE COVERAGE / FINANCIAL ISSUES:: ULISES DIAL CURRENT HOME/COMMUNITY SERVICES/EQUIPMENT:: none currently PRIMARY CARE PHYSICIAN:: Malu Baron POTENTIAL DISCHARGE NEEDS:: Follow up with PCP and discharge plan of care PATIENT/FAMILY EDUCATION NEEDS:: Discharge plan, limitations, follow up plan, Ask Me Three. ANTICIPATED BARRIERS TO DISCHARGE:: none TRANSPORTATION:: via private vehicle with family when ready PLAN:: Mayra is being treated for cellulitis. She will return home with no new services and will be transprted by family. CM will continue to support patient, family and discarge planning needs.
--- NOTE | 2019-04-12 12:44 | PGE_ITS ---
Date of Service Date of service: 04/12/19 Time of Service: 12:44 Assessment and Plan (1) Fever: Current visit: Yes Status: Acute Evidence of fever, leukocytosis, and elevated lactate, with development of tachycardia and hypotension. Suspect infectious etiology - however, with negative urinalysis and CXR, and LE exam is not overtly impressive for cellulitis at time of exam. CT of chest with potential infiltrate as possible cause. - Await Blood Cultures. - Reported episodes of diarrhea at home, worse than baseline loose stools - C.Diff checked and negative. - CT a/p without infectious pathology, and CXR without infiltrate. CT Chest with potential infiltrate as possible etiology for patient's symptoms. Cannot entirely exclude skin infection, but exam at presentation not overtly cellulitic. - Potential for volume overload by imaging, and Mrs. Calle has a history of severe - given development of hypotension and tachycardia patient did benefit from fluids. Appears stable, with resolution of tacycardia and hypotension - will hold IVFs and continue careful monitoring of symptoms. Currently on day #2 of empiric antibiotic therapy. Continue to monitor culture results. (2) Breast mass: Current visit: Yes Status: Acute Ct of the chest interpreted as a 2cm focal density within the left lateral breast, with recommendations for clinical correlation with mammography. However, repeat read by local radiology with asymmetry near the chest wall in the region of the left breast, which likely represents edema. - Will recommend follow-up imaging with Mammography following discharge, as patient is due for mammogram regardless. (3) Aortic stenosis, severe: Current visit: No Status: Acute Severe, with preserved LVEF. - Monitor volume status carefully. IVF's off at this time. - Continue current diuretic therapy with Furosemide. May ultimately require some additional diuresis, but currently with recent resolution of sepsis. Monitor respiratory status carefully. - Avoid vasodilators. - Ensure cardiology follow-up at discharge. (4) Cirrhosis: Current visit: No Status: Chronic S/p TIPS in 2016. Continue Lasix - intolerant of Spironolactone in the past. Also on Lactulose and Rifaxan in the past, with a prior history of hepatic encephalopathy. (5) Diabetes mellitus: Current visit: No Status: Chronic Continue lantus, sliding scale coverage. (6) DVT prophylaxis: Current visit: Yes Status: Acute History of Cirrhosis, esophageal Varices, but with hepatic synthetic function intact, essentially normal INR, and s/p TIPS. Continue SC Heparin, but monitor Hgb carefully. (7) Advance directive on file: Current visit: Yes Status: Acute Full Code. Subjective Interval history since last seen: 64 year old woman with a prior history of LE Cellulitis and Cirrhosis, being admitted from [facility] Emergency Department on 04/11 with a diagnosis of Fever and sepsis. Mrs. Calle has a Past Medical History significant for Non-alcoholic Steatoh epatitis diagnosed in 2016 following a GIB. She had been hospitalized with reported Hematemesis, with ensuing endoscopy and inadvertent biopsy of a Gastric Varix which caused significant blood loss and acute transfer to tertiary center. [place] [facility] [place] was diagnosed with Cirrhosis of the liver, Portal Hypertension, and Hepatic Encephalopathy requiring an urgent TIPS procedure. Her other history includes obesity, HTN, Dyslipidemia, Chronic Venous Stasis, IDDM, and PHTN. Her ECHO from earlier this month also showed evidence of severe Aortic Stenosis with an intact LVEF. She has what appears to be a somewhat chronic appearing bilateral LE discoloration and edema, previously diagnosed with venous stasis without arterial disease, as well as a left foot wound that has caused Celllulitis in the left leg on 2 prior occasions. The patient presented to the ED at the urging of her daughter, with a reported 1-2 day course of feeling unwell. She reported subjective nausea and decreased appetite, and daughter reported a documented fever at home. Work-up in the ED showed evidence of a fever and tachycardia, mild leukocytosis, and elevated Lactate. Her EKG was unchanged, and troponin was minimally and equivocally elevated, essentially unchanged on recheck. Urinalysis was negative for infection, CXR showed potential mild CHF, and CT a/p was remarkable for stable cirrhosis and splenomegally. She was admitted for further evaluation and treatment. Following admission the patient's HR increased and blood pressure decreased, necessitating careful fluid hydration with careful monitoring of volume status given her aortic stenosis. A CT of the chest was obtained showing mild pulmonary edema, with small opacity in the LLL. Her leukocytosis has resolved, lactate improved, and troponin normalized. Procalcitonin was significantly elevated at 8. Of note, a left breast abnormality was also noted on imaging. Mrs. Calle reports improvement overall. No other overnight events reported. Patient is currently afebrile. Exam Narrative Exam Narrative: General: Patient appears acutely ill but not toxic, somnolent but arousable and appropriate Neck: Supple CV: Regular, nontachycardic at time of exam, S1S2, 4/6 RUSB murmur appreciated. Pulmonary: Mild, bibasilar crackles on exam somewhat limited by body habitus Abdomen: + Bowel Sounds, soft, nontender, nondistended but obese in contour Vascular: 2+ b/l LE edema. Skin: Prominent hyperpigmentation of b/l Lower Extremities. Left Leg is perhaps mildly warmer than right, but no significant erythema or cellulitic changes. Very small open wound on left foot that is reported as chronic, without significant purulence, induration, or fluctuance. Psych: Normal mood and affect. Objective Objective Clinical Data: Abnormal lab results 04/11/19 04/11/19 04/11/19 Range/Units 14:12 20:12 20:12 MCV (80-95) fL Plt Count (130-400) x1000/uL Absolute Lymphocytes (1.2-3.4) k/cumm Absolute Monocytes (0.11-0.7) k/cumm BUN (7-18) mg/dL Glucose (70-100) mg/dL Lactate 4.2 H (0.6-1.4) mmol/l Calcium (8.5-10.1) mg/dL Total Bilirubin (0.2-1.0) mg/dL Conjugated Bilirubin (0.00-0.20) mg/dL AST (15-37) U/L Alkaline Phosphatase (46-116) U/L Troponin I 0.14 H* 0.09 H* (0.00-0.06) ng/mL Total Protein (6.4-8.2) g/dL Albumin (3.4-5.0) g/dL 04/12/19 04/12/19 04/12/19 Range/Units 06:45 06:45 06:45 MCV 96.9 H (80-95) fL Plt Count 60 L (130-400) x1000/uL Absolute Lymphocytes 0.84 L (1.2-3.4) k/cumm Absolute Monocytes 0.97 H (0.11-0.7) k/cumm BUN 28 H D (7-18) mg/dL Glucose 121 H (70-100) mg/dL Lactate 2.1 H (0.6-1.4) mmol/l Calcium 8.2 L (8.5-10.1) mg/dL Total Bilirubin 4.7 H (0.2-1.0) mg/dL Conjugated Bilirubin 2.96 H (0.00-0.20) mg/dL AST 43 H (15-37) U/L Alkaline Phosphatase 130 H (46-116) U/L Troponin I (0.00-0.06) ng/mL Total Protein 5.5 L (6.4-8.2) g/dL Albumin 2.0 L (3.4-5.0) g/dL Vital Signs Temperature 37.2 C 04/12/19 12:40 Temperature Source Tympanic 04/12/19 12:40 Pulse 89 04/12/19 12:40 Pulse Rhythm Regular 04/12/19 07:40 Respiratory Rate 17 04/12/19 12:40 Respiratory Effort Non-Labored 04/12/19 07:40 Respiratory Depth Normal 04/12/19 07:40 Respiratory Pattern Normal 04/12/19 07:40 Blood Pressure 145/77 H 04/12/19 12:40 Pulse Oximetry 96 04/12/19 12:40 Oxygen Delivery Method Room Air 04/12/19 12:40 Oxygen Flow Rate 0 04/12/19 12:40 Pain Level 0 04/12/19 12:40 Comment 04/12/19 12:40 Intake & Output 04/11/19 04/12/19 04/12/19 23:59 11:59 23:59 Intake Total 1540.416 / 7438.296 5752.083 / 1087.083 Output Total 850 / 850 1000 / 1000 Balance 690.416 / 690.416 87.083 / 87.083 Weight 109.3 kg 110.1 kg Intake: IV 1140.416 / 1140.416 727.083 / 727.083 Oral 400 / 400 360 / 360 Output: Urine 850 / 850 750 / 750 Stool 250 / 250 Other: Urine Color Dark Jenna Yellow Urine Appearance Clear Clear Urine Odor Strong Normal Stool Size Small Moderate Stool Characteristics Soft Liquid Brown Voiding Methods Toilet Toilet Laboratory Results WBC 8.35 k/cumm (4.4-10.8) 04/12/19 06:45 RBC 4.21 m/cumm (4.00-5.20) 04/12/19 06:45 Hgb 13.7 g/dL (12.0-15.5) 04/12/19 06:45 Hct 40.8 % (36.0-46.0) 04/12/19 06:45 MCV 96.9 fL (80-95) H 04/12/19 06:45 MCH 32.5 pg (27.0-33.0) 04/12/19 06:45 MCHC 33.6 g/dL (32.0-36.0) 04/12/19 06:45 RDW 14.6 % (11.7-14.6) 04/12/19 06:45 Plt Count 60 x1000/uL (130-400) L 04/12/19 06:45 MPV 10.6 fL (8.0-11.0) 04/12/19 06:45 Immature Gran % 0.4 04/12/19 06:45 74.7 04/12/19 06:45 10.1 04/12/19 06:45 11.6 04/12/19 06:45 2.8 04/12/19 06:45 0.4 04/12/19 06:45 Absolute Neutrophils 6.25 k/cumm (1.2-6.7) 04/12/19 06:45 Absolute Lymphocytes 0.84 k/cumm (1.2-3.4) L 04/12/19 06:45 Absolute Monocytes 0.97 k/cumm (0.11-0.7) H 04/12/19 06:45 Absolute Eosinophils 0.23 k/cumm (0.0-0.7) 04/12/19 06:45 Absolute Basophils 0.03 k/cumm (0.0-0.2) 04/12/19 06:45 Diff reviewed 04/11/19 10:50 RBC Morphology Normal 04/11/19 10:50 Sodium 142 mmol/L (136-145) 04/12/19 06:45 Potassium 3.5 mmol/L (3.5-5.1) 04/12/19 06:45 Chloride 104 mmol/L (98-107) 04/12/19 06:45 Carbon Dioxide 30.6 mmol/L (21.0-32.0) 04/12/19 06:45 7.4 mmol/L (3-11) 04/12/19 06:45 BUN 28 mg/dL (7-18) H D 04/12/19 06:45 0.82 mg/dL (0.55-1.02) 04/12/19 06:45 >= 60.00 (mL/min/1.73m2) 04/12/19 06:45 Glucose 121 mg/dL (70-100) H 04/12/19 06:45 2.1 mmol/l (0.6-1.4) H 04/12/19 06:45 Calcium 8.2 mg/dL (8.5-10.1) L 04/12/19 06:45 Magnesium 2.2 mg/dL (1.8-2.4) 04/12/19 06:45 4.7 mg/dL (0.2-1.0) H 04/12/19 06:45 2.96 mg/dL (0.00-0.20) H 04/12/19 06:45 AST 43 U/L (15-37) H 04/12/19 06:45 ALT 30 U/L (12-78) 04/12/19 06:45 130 U/L (46-116) H 04/12/19 06:45 14 umol/L (11-32) 04/11/19 10:50 0.06 ng/mL (0.00-0.06) 04/12/19 06:45 NT-Pro-B Natriuret Pep 982 pg/mL (-299) H 04/11/19 10:50 5.5 g/dL (6.4-8.2) L 04/12/19 06:45 2.0 g/dL (3.4-5.0) L 04/12/19 06:45 8.0 ng/mL 04/11/19 20:12 Jenna (Yellow) 04/11/19 11:25 Sl cloudy (Clear) 04/11/19 11:25 5.0 (5-8) 04/11/19 11:25 Ur Specific [place] 1.025 (1.005-1.025) 04/11/19 11:25 30 mg/dL (Negative) H 04/11/19 11:25 15 mg/dL (Negative) H 04/11/19 11:25 Moderate (Negative) H 04/11/19 11:25 Negative (Negative) 04/11/19 11:25 Moderate (Negative) H 04/11/19 11:25 0.2 EU/dL (Up TO 0.2) 04/11/19 11:25 Ur Leukocyte Esterase Negative (Negative) 04/11/19 11:25 >50 (0-2) H 04/11/19 11:25 5-10 HPF (0-5) 04/11/19 11:25 Ur Epithelial Cells Few HPF (Negative) 04/11/19 11:25 Negative HPF (Negative) 04/11/19 11:25 Many HPF (Negative) 04/11/19 11:25 3-5 fine granular LPF (Negative) 04/11/19 11:25 Moderate (Negative) 04/11/19 11:25 Moderate renal (Negative) 04/11/19 11:25 Ur Culture Indicated? Yes 04/11/19 11:25 Negative mg/dL (Negative) 04/11/19 11:25
[2019-04-12] MEDS: Insulin Aspart 300 UNITS/3 ML PEN SC ×2 (12:48→16:48)
[2019-04-12] MEDS: Ibuprofen 600 MG TAB PO (17:58)
[2019-04-12] MEDS: Mylanta Suspension 30 ML CUP PO (19:49)
[2019-04-12] MEDS: Acetaminophen 325 MG TAB PO (19:49)
[2019-04-13 00:08] VITALS: BP 125/70; PULSE 60; RESP 16; TEMP 36.5; O2SAT 95
[2019-04-13 03:46] VITALS: TEMP 36.3
[2019-04-13] MEDS: PIPERACILLIN/TAZO 4.5 GM in Normal Saline 100 ML IVPB ×2 (07:23→17:31)
[2019-04-13 07:35] VITALS: BP 100/66; PULSE 65; RESP 17; TEMP 36.8; O2SAT 98
[2019-04-13 07:40] LABS: Abs Immature Grans 0.02 k/cumm (0.0-0.09); Absolute Basophil Count 0.04 k/cumm (0.0-0.2); Absolute Eosinophil Count 0.25 k/cumm (0.0-0.7); Absolute Lymphocyte Count 1.19 k/cumm (1.2-3.4); Absolute Monocyte Count 0.67 k/cumm (0.11-0.7); Absolute Neutrophil Count 2.45 k/cumm (1.2-6.7); Basophils % 0.9; Eosinophils % 5.4; HCT 36.2 % (36.0-46.0); Immature Grans % 0.4; Lymphocytes % 25.8; Mean Corp. HGB Concentration 33.1 g/dL (32.0-36.0); Mean Corpuscular Hemoglobin 32.3 pg (27.0-33.0); Mean Corpuscular Volume 97.6 fL (80-95); Mean Platelet Volume 10.9 fL (8.0-11.0); Monocytes % 14.5; RBC 3.71 m/cumm (4.00-5.20); RBC Distribution Width 14.6 % (11.7-14.6); White Blood Cell Count 4.62 k/cumm (4.4-10.8)
[2019-04-13 08:00] LABS: ALT 33 U/L (12-78); AST 51 U/L (15-37); Albumin 1.7 g/dL (3.4-5.0); Alkaline Phosphatase 113 U/L (46-116); Anion Gap 3.8 mmol/L (3-11); BUN 33 mg/dL (7-18); Bilirubin, Direct 2.37 mg/dL (0.00-0.20); Bilirubin, Total 3.6 mg/dL (0.2-1.0); CO2 29.2 mmol/L (21.0-32.0); CREATININE 0.92 mg/dL (0.55-1.02); Calcium 7.9 mg/dL (8.5-10.1); Chloride 107 mmol/L (98-107); Glucose 114 mg/dL (70-100); Magnesium 2.1 mg/dL (1.8-2.4); Potassium 3.8 mmol/L (3.5-5.1); Sodium 140 mmol/L (136-145)
[2019-04-13 08:03] LABS: Platelet Count 64 x1000/uL (130-400)
[2019-04-13 08:04] LABS: Diff Comment PLT Morph Reviewed; Polychromasia Present
[2019-04-13] MEDS: Lactulose 20 GM/30 ML CUP 10 GM PO ×3 (09:06→19:40)
[2019-04-13] MEDS: Sucralfate 1 GM TAB PO ×4 (09:07→21:29)
[2019-04-13] MEDS: Zinc Sulfate 220 MG TAB PO (09:07)
[2019-04-13] MEDS: Pantoprazole 40 MG TABCR PO (09:07)
[2019-04-13] MEDS: Furosemide 40 MG TAB PO (09:07)
[2019-04-13] MEDS: Insulin Glargine 300 UNITS/3 ML PEN 15 UNITS SC (09:07)
[2019-04-13] MEDS: Rifaximin 550 MG TAB PO ×2 (09:08→19:41)
[2019-04-13] MEDS: Ferrous Sulfate 325 MG TAB PO (09:08)
[2019-04-13] MEDS: Pregabalin 100 MG CAP PO ×3 (09:08→19:42)
--- NOTE | 2019-04-13 09:45 | PDOC.CMPRO ---
- If Service Date Differs Date of service: 04/13/19 Time of Service: 09:45 Care Management Progress Note S/O:CM made several attempts to see Mayra today but she was unavailable to meet with. CM did speak with her daughter who stated Mayra had had a febrile episode last evening that was concerning. She received Tylenol at the time and reportedly took as shower later and felt much better. Per provider, there is little evidence of cellulitis but the cause of the fever needs to be determined so Mayra is undergoing additional testing. A: Mayra is a pleasant 64 year old female admitted to [facility] on 04/11/19 with cellulitis. P: Mayra is being treated for cellulitis. She will return home with no new services and will be transported by family. CM will continue to support patient, family and will address discharge planning needs.
[2019-04-13 10:33] LABS: Vancomycin, Trough 21.7 ug/mL (10.0-20.0)
[2019-04-13] MEDS: Insulin Aspart 300 UNITS/3 ML PEN SC ×2 (12:19→16:55)
[2019-04-13] MEDS: DOXYCYCLINE 100 MG in Normal Saline 100 ML IVPB ×2 (12:19→23:55)
--- NOTE | 2019-04-13 14:37 | W.PM.PROGNOT ---
Date of Service Date of service: 04/13/19 Time of Service: 14:37 Assessment and Plan (1) Fever: Current visit: Yes Status: Acute I agree with Dr Aguilar that there is no obvious cellulitis at this time. Ddx: LLL pneumonia (seen on CT), possible TIPS infection, possible tick-borne illness. Blood cx 04/11/19 with NGTD; Blood cultures are being repeated today. I added doxycycline to the current therapy (vancomycin/zosyn day 3) to cover for both tick-borne illness and possible Lyme. Checking lyme/tick panel.. If fevers recur in the next 24 hours, we should really consider discussing case with IR at [facility] [place] re possible TIPS infection. C.Diff negative. (2) Breast mass: Current visit: Yes Status: Acute Edema vs mass L breast - will need outpatient mammogram. (3) Aortic stenosis, severe: Current visit: No Status: Acute Severe, with preserved LVEF. - Monitor volume status carefully. IVF's off at this time. - Continue current diuretic therapy with Furosemide. - Avoid vasodilators. - Ensure cardiology follow-up at discharge. (4) Cirrhosis: Current visit: No Status: Chronic S/p TIPS in 2016. TIPS infection is on differential - if fevers recur, we will have to pursue transfer. Continue Lactulose and Rifaxan in the past, with a prior history of hepatic encephalopathy. (5) Diabetes mellitus: Current visit: No Status: Chronic Continue lantus, sliding scale coverage. (6) DVT prophylaxis: Current visit: Yes Status: Acute Chemical DVT ppx is contraindicated due to h/o GI bleeding/varices/thrombocytopenia (plts of 64) (7) Advance directive on file: Current visit: Yes Status: Acute Full Code. Subjective Interval history since last seen: Ms Calle states she is not feeling well - her IV infusion of doxycycline was just really painful. She agrees to have a midline placed. Denies dizziness, chest pain, shortness of breath, nausea, abdominal pain. Tmax 38.5 yesterday at 8 pm. Exam Narrative Exam Narrative: General: very pleasant obese female, tearful, sitting in a chair, A&Ox3 HEENT: EOMI, MMM Heart: RRR, + BOBO Lungs: CTAB GI: abdomen is soft, nontender, nondistended Extremities: +1 BLE pitting/woody edema; chronic venous stasis; I am not appreciating cellulitis. Wound R distal anterior bush is dressed/c/d/i Objective Objective Clinical Data: Abnormal lab results 04/13/19 04/13/19 04/13/19 Range/Units 07:15 07:15 09:50 RBC 3.71 L (4.00-5.20) m/cumm MCV 97.6 H (80-95) fL Plt Count 64 L (130-400) x1000/uL Absolute Lymphocytes 1.19 L (1.2-3.4) k/cumm BUN 33 H (7-18) mg/dL Glucose 114 H (70-100) mg/dL Calcium 7.9 L (8.5-10.1) mg/dL Total Bilirubin 3.6 H (0.2-1.0) mg/dL Conjugated Bilirubin 2.37 H (0.00-0.20) mg/dL AST 51 H (15-37) U/L Total Protein 5.0 L (6.4-8.2) g/dL Albumin 1.7 L (3.4-5.0) g/dL Vancomycin Trough 21.7 H* (10.0-20.0) ug/mL Vital Signs Temperature 36.8 C 04/13/19 07:35 Temperature Source Tympanic 04/13/19 07:35 Pulse 65 04/13/19 07:35 Pulse Rhythm Regular 04/13/19 13:09 Respiratory Rate 17 04/13/19 07:35 Respiratory Effort 04/13/19 13:09 Respiratory Depth Normal 04/13/19 13:09 Respiratory Pattern Normal 04/13/19 13:09 Blood Pressure 100/66 04/13/19 07:35 Pulse Oximetry 98 04/13/19 07:35 Oxygen Delivery Method Room Air 04/13/19 07:35 Oxygen Flow Rate 0 04/13/19 07:35 Pain Level 0 04/13/19 07:35 Comment 04/12/19 17:50 Intake & Output 04/12/19 04/13/19 04/13/19 23:59 11:59 23:59 Intake Total 840 / 1927.083 950 / 1190 240 / 1190 Output Total 600 / 1600 700 / 1050 350 / 1050 Balance 240 / 327.083 250 / 140 -110 / 140 Weight 111.5 kg Intake: IV 360 / 1087.083 200 / 200 Oral 480 / 840 750 / 990 240 / 990 Output: Urine 600 / 1350 700 / 1050 350 / 1050 Other: Urine Color Light Jenna Dark Jenna Light Jenna Brown Urine Appearance Clear Clear Clear Urine Odor Normal Normal None Stool Size Moderate Stool Characteristics Soft Brown Black Voiding Methods Toilet Toilet Toilet Laboratory Results WBC 4.62 k/cumm (4.4-10.8) D 04/13/19 07:15 RBC 3.71 m/cumm (4.00-5.20) L 04/13/19 07:15 Hgb 12.0 g/dL (12.0-15.5) 04/13/19 07:15 Hct 36.2 % (36.0-46.0) 04/13/19 07:15 MCV 97.6 fL (80-95) H 04/13/19 07:15 MCH 32.3 pg (27.0-33.0) 04/13/19 07:15 MCHC 33.1 g/dL (32.0-36.0) 04/13/19 07:15 RDW 14.6 % (11.7-14.6) 04/13/19 07:15 Plt Count 64 x1000/uL (130-400) L 04/13/19 07:15 MPV 10.9 fL (8.0-11.0) 04/13/19 07:15 Immature Gran % 0.4 04/13/19 07:15 53.0 04/13/19 07:15 25.8 04/13/19 07:15 14.5 04/13/19 07:15 5.4 04/13/19 07:15 0.9 04/13/19 07:15 Absolute Neutrophils 2.45 k/cumm (1.2-6.7) 04/13/19 07:15 Absolute Lymphocytes 1.19 k/cumm (1.2-3.4) L 04/13/19 07:15 Absolute Monocytes 0.67 k/cumm (0.11-0.7) 04/13/19 07:15 Absolute Eosinophils 0.25 k/cumm (0.0-0.7) 04/13/19 07:15 Absolute Basophils 0.04 k/cumm (0.0-0.2) 04/13/19 07:15 Plt morph reviewed 04/13/19 07:15 RBC Morphology See below 04/13/19 07:15 Present 04/13/19 07:15 Sodium 140 mmol/L (136-145) 04/13/19 07:15 Potassium 3.8 mmol/L (3.5-5.1) 04/13/19 07:15 Chloride 107 mmol/L (98-107) 04/13/19 07:15 Carbon Dioxide 29.2 mmol/L (21.0-32.0) 04/13/19 07:15 3.8 mmol/L (3-11) 04/13/19 07:15 BUN 33 mg/dL (7-18) H 04/13/19 07:15 0.92 mg/dL (0.55-1.02) 04/13/19 07:15 >= 60.00 (mL/min/1.73m2) 04/13/19 07:15 Glucose 114 mg/dL (70-100) H 04/13/19 07:15 2.1 mmol/l (0.6-1.4) H 04/12/19 06:45 Calcium 7.9 mg/dL (8.5-10.1) L 04/13/19 07:15 Magnesium 2.1 mg/dL (1.8-2.4) 04/13/19 07:15 3.6 mg/dL (0.2-1.0) H 04/13/19 07:15 2.37 mg/dL (0.00-0.20) H 04/13/19 07:15 AST 51 U/L (15-37) H 04/13/19 07:15 ALT 33 U/L (12-78) 04/13/19 07:15 113 U/L (46-116) 04/13/19 07:15 14 umol/L (11-32) 04/11/19 10:50 0.06 ng/mL (0.00-0.06) 04/12/19 06:45 NT-Pro-B Natriuret Pep 982 pg/mL (-299) H 04/11/19 10:50 5.0 g/dL (6.4-8.2) L 04/13/19 07:15 1.7 g/dL (3.4-5.0) L 04/13/19 07:15 7.0 ng/mL 04/13/19 07:15 Jenna (Yellow) 04/11/19 11:25 Sl cloudy (Clear) 04/11/19 11:25 5.0 (5-8) 04/11/19 11:25 Ur Specific [place] 1.025 (1.005-1.025) 04/11/19 11:25 30 mg/dL (Negative) H 04/11/19 11:25 15 mg/dL (Negative) H 04/11/19 11:25 Moderate (Negative) H 04/11/19 11:25 Negative (Negative) 04/11/19 11:25 Moderate (Negative) H 04/11/19 11:25 0.2 EU/dL (Up TO 0.2) 04/11/19 11:25 Ur Leukocyte Esterase Negative (Negative) 04/11/19 11:25 >50 (0-2) H 04/11/19 11:25 5-10 HPF (0-5) 04/11/19 11:25 Ur Epithelial Cells Few HPF (Negative) 04/11/19 11:25 Negative HPF (Negative) 04/11/19 11:25 Many HPF (Negative) 04/11/19 11:25 3-5 fine granular LPF (Negative) 04/11/19 11:25 Moderate (Negative) 04/11/19 11:25 Moderate renal (Negative) 04/11/19 11:25 Ur Culture Indicated? Yes 04/11/19 11:25 Negative mg/dL (Negative) 04/11/19 11:25 Vancomycin Trough 21.7 ug/mL (10.0-20.0) H* 04/13/19 09:50
[2019-04-13 15:25] VITALS: BP 128/69; PULSE 77; RESP 19; TEMP 36.6; O2SAT 97
--- NOTE | 2019-04-13 17:53 | NUR.NOTE ---
Nursing Note: patients midline is in place and functioning, , no changes in assessments from this morning, patient is less anxious than earlier, she understands that the midline can be used for lab draws, and seems to appreciate the opportunity to have fewer vena punctures
[2019-04-13] MEDS: Normal Saline Flush 10 ML SYR IVP (19:40)
[2019-04-13 19:43] VITALS: BP 107/66; PULSE 78; RESP 16; TEMP 37.2; O2SAT 97
[2019-04-14 00:12] VITALS: BP 118/72; PULSE 86; RESP 17; TEMP 37; O2SAT 95
[2019-04-14] MEDS: PIPERACILLIN/TAZO 4.5 GM in Normal Saline 100 ML IVPB ×3 (01:37→19:31)
[2019-04-14 03:31] VITALS: TEMP 37
[2019-04-14 07:02] LABS: Abs Immature Grans 0.02 k/cumm (0.0-0.09); Absolute Basophil Count 0.05 k/cumm (0.0-0.2); Absolute Eosinophil Count 0.27 k/cumm (0.0-0.7); Absolute Lymphocyte Count 1.23 k/cumm (1.2-3.4); Absolute Monocyte Count 0.66 k/cumm (0.11-0.7); Absolute Neutrophil Count 2.16 k/cumm (1.2-6.7); Basophils % 1.1; Eosinophils % 6.2; HCT 34.8 % (36.0-46.0); HGB 11.7 g/dL (12.0-15.5); Immature Grans % 0.5; Mean Corp. HGB Concentration 33.6 g/dL (32.0-36.0); Mean Corpuscular Hemoglobin 32.5 pg (27.0-33.0); Mean Corpuscular Volume 96.7 fL (80-95); Mean Platelet Volume 10.3 fL (8.0-11.0); Neutrophils % 49.2; RBC Distribution Width 14.4 % (11.7-14.6); White Blood Cell Count 4.39 k/cumm (4.4-10.8)
[2019-04-14] MEDS: Normal Saline Flush 10 ML SYR IVP ×3 (07:07→19:32)
[2019-04-14 07:22] LABS: Basophilic Stippling Present; Diff Comment PLT Morph Reviewed; Platelet Count 66 x1000/uL (130-400)
[2019-04-14 07:23] LABS: Polychromasia Present
[2019-04-14 07:57] VITALS: BP 133/79; PULSE 79; RESP 17; TEMP 36.7; O2SAT 96
[2019-04-14 08:21] LABS: Ammonia 55 umol/L (11-32)
[2019-04-14 08:37] LABS: ALT 35 U/L (12-78); AST 55 U/L (15-37); Albumin 1.8 g/dL (3.4-5.0); Alkaline Phosphatase 125 U/L (46-116); Anion Gap 3.1 mmol/L (3-11); BUN 19 mg/dL (7-18); Bilirubin, Direct 2.01 mg/dL (0.00-0.20); Bilirubin, Total 3.2 mg/dL (0.2-1.0); C-Reactive Protein 6.23 mg/dL (0.0-0.3); CO2 30.9 mmol/L (21.0-32.0); CREATININE 0.73 mg/dL (0.55-1.02); Chloride 106 mmol/L (98-107); Glucose 136 mg/dL (70-100); Magnesium 1.7 mg/dL (1.8-2.4); Sodium 140 mmol/L (136-145); Total Protein 5.2 g/dL (6.4-8.2)
[2019-04-14] MEDS: Insulin Glargine 300 UNITS/3 ML PEN 15 UNITS SC (08:37)
[2019-04-14] MEDS: Lactulose 20 GM/30 ML CUP 10 GM PO ×3 (08:38→19:32)
[2019-04-14] MEDS: Pregabalin 100 MG CAP PO ×3 (08:39→19:31)
[2019-04-14] MEDS: Ferrous Sulfate 325 MG TAB PO (08:39)
[2019-04-14] MEDS: Sucralfate 1 GM TAB PO ×4 (08:39→22:13)
[2019-04-14] MEDS: Rifaximin 550 MG TAB PO ×2 (08:39→19:32)
[2019-04-14] MEDS: Zinc Sulfate 220 MG TAB PO (08:39)
[2019-04-14] MEDS: Pantoprazole 40 MG TABCR PO (08:40)
[2019-04-14] MEDS: Furosemide 40 MG TAB PO (08:40)
[2019-04-14 08:55] LABS: Procalcitonin 4.5 ng/mL
--- NOTE | 2019-04-14 10:37 | PDOC.CMPRO ---
- If Service Date Differs Date of service: 04/14/19 Time of Service: 10:38 Care Management Progress Note S/O:Mayra was sitting up in the chair conversing with her daughter. She was pleasant and smiling and stated she feels better. She has been afebrile for 24 hours and is happy about that. A: Mayra is a pleasant 64 year old female admitted to [facility] on 04/11/19 with cellulitis. P: Mayra is being treated for cellulitis. She will return home with no new services and will be transported by family. CM will continue to support patient, family and will address discharge planning needs.
--- NOTE | 2019-04-14 13:47 | PGE_ITS ---
Date of Service Date of service: 04/14/19 Time of Service: 13:47 Assessment and Plan (1) Fever: Current visit: Yes Status: Acute Afebrile now for 24 hrs. Cellulitis ruled out. Ddx: LLL pneumonia (seen on CT), much less likely TIPS infection, possible tick- borne illness. Blood cx 04/11/19 with NGTD; 04/13/19 - still pending Continue doxycycline (day 2) for atypical coverage/possible tick-borne inllness; Continue zosyn (day 4). D/c vancomycin and trend procalcitonin/CRP. I no longer feel the patient has TIPS infection - no indication for transfer at this time. C.Diff negative. (2) Breast mass: Current visit: Yes Status: Acute Edema vs mass L breast - will need outpatient mammogram. (3) Aortic stenosis, severe: Current visit: No Status: Acute Severe, with preserved LVEF. - Monitor volume status carefully. - Continue current diuretic therapy with Furosemide. - Avoid vasodilators/nitrates - Ensure cardiology follow-up at discharge. (4) Cirrhosis: Current visit: No Status: Chronic S/p TIPS in 2016. TIPS infection less likely. Continue Lactulose and Rifaxan in the past, with a prior history of hepatic encephalopathy. (5) Diabetes mellitus: Current visit: No Status: Chronic Continue lantus, sliding scale coverage. (6) DVT prophylaxis: Current visit: Yes Status: Acute Chemical DVT ppx is contraindicated due to h/o GI bleeding/ varices/thrombocytopenia (plts of 66 today) (7) Advance directive on file: Current visit: Yes Status: Acute Full Code. Subjective Interval history since last seen: States she feels better today. Afebrile X >24 hrs. Denies dizziness, chest pain, shortness of breath, nausea, vomiting. S/p midline placement yesterday. Exam Narrative Exam Narrative: General: very pleasant obese female, laying comfortably in bed, A&Ox3, no asterexis. HEENT: EOMI, MMM Heart: RRR, + BOBO Lungs: CTAB GI: abdomen is soft, nontender, nondistended Extremities: +1 BLE pitting/woody edema; chronic venous stasis; no erythema Objective Objective Clinical Data: Abnormal lab results 04/14/19 04/14/19 04/14/19 Range/Units 06:40 07:50 07:50 WBC 4.39 L (4.4-10.8) k/cumm RBC 3.60 L (4.00-5.20) m/cumm Hgb 11.7 L (12.0-15.5) g/dL Hct 34.8 L (36.0-46.0) % MCV 96.7 H (80-95) fL Plt Count 66 L (130-400) x1000/uL BUN 19 H D (7-18) mg/dL Glucose 136 H (70-100) mg/dL Calcium 8.0 L (8.5-10.1) mg/dL Magnesium 1.7 L (1.8-2.4) mg/dL Total Bilirubin 3.2 H (0.2-1.0) mg/dL Conjugated Bilirubin 2.01 H (0.00-0.20) mg/dL AST 55 H (15-37) U/L Alkaline Phosphatase 125 H (46-116) U/L Ammonia 55 H (11-32) umol/L C-Reactive Protein 6.23 H (0.0-0.3) mg/dL Total Protein 5.2 L (6.4-8.2) g/dL Albumin 1.8 L (3.4-5.0) g/dL Vital Signs Temperature 36.7 C 04/14/19 07:57 Temperature Source Tympanic 04/14/19 07:57 Pulse 79 04/14/19 07:57 Pulse Rhythm Regular 04/14/19 11:05 Respiratory Rate 17 04/14/19 07:57 Respiratory Effort Non-Labored 04/14/19 11:05 Respiratory Depth Normal 04/14/19 11:05 Respiratory Pattern Normal 04/14/19 11:05 Blood Pressure 133/79 04/14/19 07:57 Pulse Oximetry 96 04/14/19 07:57 Oxygen Delivery Method Room Air 04/14/19 07:57 Oxygen Flow Rate 0 04/14/19 07:57 Pain Level 0 04/14/19 00:12 Comment 04/12/19 17:50 Intake & Output 04/13/19 04/14/19 04/14/19 23:59 11:59 23:59 Intake Total 640 / 1790 400 / 940 540 / 940 Output Total 1150 / 1850 1200 / 1200 Balance -510 / -60 -800 / -260 540 / -260 Intake: IV 100 / 500 400 / 400 Oral 540 / 1290 540 / 540 Output: Urine 1150 / 1850 1200 / 1200 Other: Urine Color Dark Jenna Dark Jenna Urine Appearance Clear Clear Urine Odor None Normal Voiding Methods Toilet Toilet Laboratory Results WBC 4.39 k/cumm (4.4-10.8) L 04/14/19 06:40 RBC 3.60 m/cumm (4.00-5.20) L 04/14/19 06:40 Hgb 11.7 g/dL (12.0-15.5) L 04/14/19 06:40 Hct 34.8 % (36.0-46.0) L 04/14/19 06:40 MCV 96.7 fL (80-95) H 04/14/19 06:40 MCH 32.5 pg (27.0-33.0) 04/14/19 06:40 MCHC 33.6 g/dL (32.0-36.0) 04/14/19 06:40 RDW 14.4 % (11.7-14.6) 04/14/19 06:40 Plt Count 66 x1000/uL (130-400) L 04/14/19 06:40 MPV 10.3 fL (8.0-11.0) 04/14/19 06:40 Immature Gran % 0.5 04/14/19 06:40 49.2 04/14/19 06:40 28.0 04/14/19 06:40 15.0 04/14/19 06:40 6.2 04/14/19 06:40 1.1 04/14/19 06:40 Absolute Neutrophils 2.16 k/cumm (1.2-6.7) 04/14/19 06:40 Absolute Lymphocytes 1.23 k/cumm (1.2-3.4) 04/14/19 06:40 Absolute Monocytes 0.66 k/cumm (0.11-0.7) 04/14/19 06:40 Absolute Eosinophils 0.27 k/cumm (0.0-0.7) 04/14/19 06:40 Absolute Basophils 0.05 k/cumm (0.0-0.2) 04/14/19 06:40 Plt morph reviewed 04/14/19 06:40 RBC Morphology See below 04/14/19 06:40 Present 04/14/19 06:40 Present 04/14/19 06:40 Sodium 140 mmol/L (136-145) 04/14/19 07:50 Potassium 4.0 mmol/L (3.5-5.1) 04/14/19 07:50 Chloride 106 mmol/L (98-107) 04/14/19 07:50 Carbon Dioxide 30.9 mmol/L (21.0-32.0) 04/14/19 07:50 3.1 mmol/L (3-11) 04/14/19 07:50 BUN 19 mg/dL (7-18) H D 04/14/19 07:50 0.73 mg/dL (0.55-1.02) 04/14/19 07:50 >= 60.00 (mL/min/1.73m2) 04/14/19 07:50 Glucose 136 mg/dL (70-100) H 04/14/19 07:50 2.1 mmol/l (0.6-1.4) H 04/12/19 06:45 Calcium 8.0 mg/dL (8.5-10.1) L 04/14/19 07:50 Magnesium 1.7 mg/dL (1.8-2.4) L 04/14/19 07:50 3.2 mg/dL (0.2-1.0) H 04/14/19 07:50 2.01 mg/dL (0.00-0.20) H 04/14/19 07:50 AST 55 U/L (15-37) H 04/14/19 07:50 ALT 35 U/L (12-78) 04/14/19 07:50 125 U/L (46-116) H 04/14/19 07:50 55 umol/L (11-32) H 04/14/19 07:50 0.06 ng/mL (0.00-0.06) 04/12/19 06:45 6.23 mg/dL (0.0-0.3) H 04/14/19 07:50 NT-Pro-B Natriuret Pep 982 pg/mL (-299) H 04/11/19 10:50 5.2 g/dL (6.4-8.2) L 04/14/19 07:50 1.8 g/dL (3.4-5.0) L 04/14/19 07:50 4.5 ng/mL 04/14/19 07:50 Jenna (Yellow) 04/11/19 11:25 Sl cloudy (Clear) 04/11/19 11:25 5.0 (5-8) 04/11/19 11:25 Ur Specific [place] 1.025 (1.005-1.025) 04/11/19 11:25 30 mg/dL (Negative) H 04/11/19 11:25 15 mg/dL (Negative) H 04/11/19 11:25 Moderate (Negative) H 04/11/19 11:25 Negative (Negative) 04/11/19 11:25 Moderate (Negative) H 04/11/19 11:25 0.2 EU/dL (Up TO 0.2) 04/11/19 11:25 Ur Leukocyte Esterase Negative (Negative) 04/11/19 11:25 >50 (0-2) H 04/11/19 11:25 5-10 HPF (0-5) 04/11/19 11:25 Ur Epithelial Cells Few HPF (Negative) 04/11/19 11:25 Negative HPF (Negative) 04/11/19 11:25 Many HPF (Negative) 04/11/19 11:25 3-5 fine granular LPF (Negative) 04/11/19 11:25 Moderate (Negative) 04/11/19 11:25 Moderate renal (Negative) 04/11/19 11:25 Ur Culture Indicated? Yes 04/11/19 11:25 Negative mg/dL (Negative) 04/11/19 11:25 Vancomycin Trough 21.7 ug/mL (10.0-20.0) H* 04/13/19 09:50
[2019-04-14] MEDS: DOXYCYCLINE 100 MG in Normal Saline 100 ML IVPB (16:07)
[2019-04-14] MEDS: Insulin Aspart 300 UNITS/3 ML PEN SC (17:11)
[2019-04-14] MEDS: MAGNESIUM SULFATE 2 GM/50 ML BAG IVPB (17:17)
--- NOTE | 2019-04-14 17:50 | NUR.NOTE ---
Nursing Note: patient has continued with her abx treatment through the day, she denies pain sob, she has had company all afternoon and is in good spirits iv vancomycin was dc'd , but will follow procalcitonin tomorrow to see if trend is towards the vancomycin is not necessary
[2019-04-14 19:50] VITALS: BP 132/59; PULSE 82; RESP 16; TEMP 36.5; O2SAT 96
[2019-04-14 23:36] VITALS: BP 110/62; PULSE 85; RESP 18; TEMP 37.1; O2SAT 96
[2019-04-15] MEDS: PIPERACILLIN/TAZO 4.5 GM in Normal Saline 100 ML IVPB ×3 (01:49→17:56)
[2019-04-15] MEDS: DOXYCYCLINE 100 MG in Normal Saline 100 ML IVPB ×2 (04:16→16:38)
[2019-04-15 07:31] LABS: Abs Immature Grans 0.03 k/cumm (0.0-0.09); Absolute Basophil Count 0.05 k/cumm (0.0-0.2); Absolute Eosinophil Count 0.26 k/cumm (0.0-0.7); Absolute Lymphocyte Count 1.42 k/cumm (1.2-3.4); Absolute Monocyte Count 0.64 k/cumm (0.11-0.7); Absolute Neutrophil Count 2.19 k/cumm (1.2-6.7); Basophils % 1.1; Eosinophils % 5.7; HCT 33.5 % (36.0-46.0); HGB 11.2 g/dL (12.0-15.5); Immature Grans % 0.7; Lymphocytes % 30.9; Mean Corp. HGB Concentration 33.4 g/dL (32.0-36.0); Mean Corpuscular Hemoglobin 32.4 pg (27.0-33.0); Mean Corpuscular Volume 96.8 fL (80-95); Mean Platelet Volume 10.3 fL (8.0-11.0); Monocytes % 13.9; Neutrophils % 47.7; RBC 3.46 m/cumm (4.00-5.20); RBC Distribution Width 14.2 % (11.7-14.6); White Blood Cell Count 4.59 k/cumm (4.4-10.8)
[2019-04-15 07:46] LABS: Anion Gap 9.5 mmol/L (3-11); BUN 14 mg/dL (7-18); C-Reactive Protein 4.46 mg/dL (0.0-0.3); CO2 30.5 mmol/L (21.0-32.0); CREATININE 0.59 mg/dL (0.55-1.02); Calcium 8.2 mg/dL (8.5-10.1); Chloride 99 mmol/L (98-107); Glucose 111 mg/dL (70-100); Magnesium 1.8 mg/dL (1.8-2.4); Potassium 3.8 mmol/L (3.5-5.1); Sodium 139 mmol/L (136-145)
[2019-04-15 07:50] VITALS: BP 154/84; PULSE 72; RESP 17; TEMP 36.4; O2SAT 96
[2019-04-15 08:05] LABS: Platelet Count 70 x1000/uL (130-400)
[2019-04-15] MEDS: Insulin Glargine 300 UNITS/3 ML PEN 15 UNITS SC (09:39)
[2019-04-15] MEDS: Lactulose 20 GM/30 ML CUP 10 GM PO ×3 (09:40→20:06)
[2019-04-15] MEDS: Sucralfate 1 GM TAB PO ×4 (09:41→22:00)
[2019-04-15] MEDS: Pregabalin 100 MG CAP PO ×3 (09:41→20:06)
[2019-04-15] MEDS: Rifaximin 550 MG TAB PO ×2 (09:41→20:06)
[2019-04-15] MEDS: Zinc Sulfate 220 MG TAB PO (09:41)
[2019-04-15] MEDS: Normal Saline Flush 10 ML SYR IVP ×2 (09:41→20:09)
[2019-04-15] MEDS: Pantoprazole 40 MG TABCR PO (09:42)
[2019-04-15] MEDS: Furosemide 40 MG TAB PO (09:42)
[2019-04-15] MEDS: Ferrous Sulfate 325 MG TAB PO (09:42)
[2019-04-15 11:50] VITALS: BP 112/70; PULSE 64; RESP 18; TEMP 36.4; O2SAT 97
[2019-04-15] MEDS: Insulin Aspart 300 UNITS/3 ML PEN SC (12:02)
[2019-04-15 12:30] LABS: Lyme Ab w Rflx to Lyme Confirm Negative
[2019-04-15 16:00] VITALS: BP 112/74; PULSE 90; RESP 18; TEMP 36.6; O2SAT 97
--- NOTE | 2019-04-15 16:08 | W.INDIABCONS ---
Date of service: 04/15/19 Time of Service: 16:08 Diabetes Inpatient Consult DESCRIPTION/ASSESSMENT: Appreciate diabetes consult for Ms Calle who is hospitalized with fever and comorbidity of cirrhosis. A1c 5.1 BMI 46 Ms. Calle is here taking carbohydrate controlled low sodium and low protein meal plan eating 44-71 grams carbohydrate at a meal. Blood sugars over past 2 days 109-200 taking 15u Glargine and sensitive insulin correction. Home medications offer usual basal insulin with 6u Lispro with breakfast and supper. Visited with her today. She is satisfied with her current insulin regimen both at home and here. She denies any frequent hypoglycemia despite A1c 5.1 on multiple insulin dosing. She states she has what she needs to manage diabetes at home. INTERVENTION: No intervention suggested at this time. PLAN: Will follow blood sugars F/u as desired by Ms. Calle Time Spent in Nutritional Counseling and Treatment: 5 minutes face to face
--- NOTE | 2019-04-15 18:01 | NUR.NOTE ---
Nursing Note: Patient remains afebrile, denies pain, abx treatment continues
--- NOTE | 2019-04-15 19:34 | CMPROGNOTE_ITS ---
- If Service Date Differs Date of service: 04/15/19 Time of Service: 19:34 Care Management Progress Note S/O:Mayra was sitting up in the chair when CM came to see her. She was pleasant and engaged readily in conversation. Mayra expressed a desire to go home. She says she hopes that Dr. Sandoval can answer her questions and elucidate a plan for discharge. Dr. Baron saw her today for a palliative consult. Mayra will remain a full code. A: Mayra is a pleasant 64 year old female admitted to [facility] on 04/11/19 with cellulitis. P: Mayra is being treated for cellulitis. She will return home with no new services and will be transported by family. CM will continue to support patient, family and will address discharge planning needs.
--- NOTE | 2019-04-15 20:39 | PGE_ITS ---
Date of Service Date of service: 04/15/19 Time of Service: 16:30 Assessment and Plan (1) Fever: Current visit: Yes Status: Acute Remains afebrile x 48 hrs. Defervesced with initiation of doxycycline. Cellulitis ruled out. Ddx: LLL pneumonia (seen on CT), much less likely TIPS infection, possible tick- borne illness. Blood cx 04/11/19 with NGTD; 04/13/19 - NGTD. Continue doxycycline (day 3) for atypical coverage/possible tick-borne inllness; Continue zosyn (day 5). Continue to trend procalcitonin/CRP. C.Diff negative. (2) Breast mass: Current visit: Yes Status: Acute Edema vs mass L breast - will need outpatient mammogram. (3) Aortic stenosis, severe: Current visit: No Status: Acute Severe, with preserved LVEF. - Monitor volume status carefully. - Continue current diuretic therapy with Furosemide. - Avoid vasodilators/nitrates - cardiology follow-up at discharge. (4) Cirrhosis: Current visit: No Status: Chronic S/p TIPS in 2016. TIPS infection less likely. Continue Lactulose and Rifaxan with a prior history of hepatic encephalopathy. (5) Diabetes mellitus: Current visit: No Status: Chronic Continue lantus, sliding scale coverage. (6) DVT prophylaxis: Current visit: Yes Status: Acute Chemical DVT ppx is contraindicated due to h/o GI bleeding/varices/thrombocytopenia (7) Advance directive on file: Current visit: Yes Status: Acute Full Code. (8) Epistaxis: Current visit: Yes Status: Acute Not surprising in setting of thrombocytopenia. This appears to not be resulting in clinically significant bleeding. The patient was not actually having epistaxis when I came to see her. Will offer saline nasal spray and monitor overnight. Subjective Interval history since last seen: Ms Calle reports feeling like she is bleeding in the back of her nose and has coughed up a couple of clots of blood. She specifically denies any chest pain, shortness of breath, nausea, vomiting, abdominal pain. She feels better today. She states she sometimes gets nosebleeds at home. Exam Narrative Exam Narrative: General: very pleasant obese female, A&OX3, more animated today, ambulating around the room with no problems HEENT: EOMI, MMM Heart: RRR, + BOBO Lungs: CTAB GI: abdomen is soft, nontender, nondistended Extremities: +1 BLE pitting/woody edema; chronic venous stasis; no erythema Objective Objective Clinical Data: Abnormal lab results 04/15/19 04/15/19 Range/Units 06:25 06:25 RBC 3.46 L (4.00-5.20) m/cumm Hgb 11.2 L (12.0-15.5) g/dL Hct 33.5 L (36.0-46.0) % MCV 96.8 H (80-95) fL Plt Count 70 L (130-400) x1000/uL Glucose 111 H (70-100) mg/dL Calcium 8.2 L (8.5-10.1) mg/dL C-Reactive Protein 4.46 H (0.0-0.3) mg/dL Vital Signs Temperature 36.6 C 04/15/19 16:00 Temperature Source Tympanic 04/15/19 16:00 Pulse 90 04/15/19 16:00 Pulse Rhythm Regular 04/15/19 08:25 Respiratory Rate 18 04/15/19 16:00 Respiratory Effort Non-Labored 04/15/19 08:25 Respiratory Depth Normal 04/15/19 08:25 Respiratory Pattern Normal 04/15/19 08:25 Blood Pressure 112/74 04/15/19 16:00 Pulse Oximetry 97 04/15/19 16:00 Oxygen Delivery Method Room Air 04/15/19 16:00 Oxygen Flow Rate 0 04/15/19 16:00 Pain Level 0 04/15/19 16:00 Comment 04/12/19 17:50 Intake & Output 04/14/19 04/15/19 04/15/19 23:59 11:59 23:59 Intake Total 1080 / 1480 850 / 1410 560 / 1410 Output Total 900 / 2500 1600 / 2500 Balance 1080 / 280 -50 / -1090 -1040 / -1090 Weight 114.1 kg Intake: IV 300 / 700 200 / 400 200 / 400 Oral 780 / 780 650 / 1010 360 / 1010 Output: Urine 900 / 2500 1600 / 2500 Other: Urine Color Pale Dark Jenna Yellow Urine Appearance Clear Clear Clear Urine Odor Normal None Stool Size Small Stool Characteristics Soft Brown Voiding Methods Toilet Toilet Toilet Laboratory Results WBC 4.59 k/cumm (4.4-10.8) 04/15/19 06:25 RBC 3.46 m/cumm (4.00-5.20) L 04/15/19 06:25 Hgb 11.2 g/dL (12.0-15.5) L 04/15/19 06:25 Hct 33.5 % (36.0-46.0) L 04/15/19 06:25 MCV 96.8 fL (80-95) H 04/15/19 06:25 MCH 32.4 pg (27.0-33.0) 04/15/19 06:25 MCHC 33.4 g/dL (32.0-36.0) 04/15/19 06:25 RDW 14.2 % (11.7-14.6) 04/15/19 06:25 Plt Count 70 x1000/uL (130-400) L 04/15/19 06:25 MPV 10.3 fL (8.0-11.0) 04/15/19 06:25 Immature Gran % 0.7 04/15/19 06:25 47.7 04/15/19 06:25 30.9 04/15/19 06:25 13.9 04/15/19 06:25 5.7 04/15/19 06:25 1.1 04/15/19 06:25 Absolute Neutrophils 2.19 k/cumm (1.2-6.7) 04/15/19 06:25 Absolute Lymphocytes 1.42 k/cumm (1.2-3.4) 04/15/19 06:25 Absolute Monocytes 0.64 k/cumm (0.11-0.7) 04/15/19 06:25 Absolute Eosinophils 0.26 k/cumm (0.0-0.7) 04/15/19 06:25 Absolute Basophils 0.05 k/cumm (0.0-0.2) 04/15/19 06:25 Plt morph reviewed 04/14/19 06:40 RBC Morphology See below 04/14/19 06:40 Present 04/14/19 06:40 Present 04/14/19 06:40 Sodium 139 mmol/L (136-145) 04/15/19 06:25 Potassium 3.8 mmol/L (3.5-5.1) 04/15/19 06:25 Chloride 99 mmol/L (98-107) 04/15/19 06:25 Carbon Dioxide 30.5 mmol/L (21.0-32.0) 04/15/19 06:25 9.5 mmol/L (3-11) 04/15/19 06:25 BUN 14 mg/dL (7-18) 04/15/19 06:25 0.59 mg/dL (0.55-1.02) 04/15/19 06:25 >= 60.00 (mL/min/1.73m2) 04/15/19 06:25 Glucose 111 mg/dL (70-100) H 04/15/19 06:25 2.1 mmol/l (0.6-1.4) H 04/12/19 06:45 Calcium 8.2 mg/dL (8.5-10.1) L 04/15/19 06:25 Magnesium 1.8 mg/dL (1.8-2.4) 04/15/19 06:25 3.2 mg/dL (0.2-1.0) H 04/14/19 07:50 2.01 mg/dL (0.00-0.20) H 04/14/19 07:50 AST 55 U/L (15-37) H 04/14/19 07:50 ALT 35 U/L (12-78) 04/14/19 07:50 125 U/L (46-116) H 04/14/19 07:50 55 umol/L (11-32) H 04/14/19 07:50 0.06 ng/mL (0.00-0.06) 04/12/19 06:45 4.46 mg/dL (0.0-0.3) H 04/15/19 06:25 NT-Pro-B Natriuret Pep 982 pg/mL (-299) H 04/11/19 10:50 5.2 g/dL (6.4-8.2) L 04/14/19 07:50 1.8 g/dL (3.4-5.0) L 04/14/19 07:50 3.0 ng/mL 04/15/19 06:25 Jenna (Yellow) 04/11/19 11:25 Sl cloudy (Clear) 04/11/19 11:25 5.0 (5-8) 04/11/19 11:25 Ur Specific [place] 1.025 (1.005-1.025) 04/11/19 11:25 30 mg/dL (Negative) H 04/11/19 11:25 15 mg/dL (Negative) H 04/11/19 11:25 Moderate (Negative) H 04/11/19 11:25 Negative (Negative) 04/11/19 11:25 Moderate (Negative) H 04/11/19 11:25 0.2 EU/dL (Up TO 0.2) 04/11/19 11:25 Ur Leukocyte Esterase Negative (Negative) 04/11/19 11:25 >50 (0-2) H 04/11/19 11:25 5-10 HPF (0-5) 04/11/19 11:25 Ur Epithelial Cells Few HPF (Negative) 04/11/19 11:25 Negative HPF (Negative) 04/11/19 11:25 Many HPF (Negative) 04/11/19 11:25 3-5 fine granular LPF (Negative) 04/11/19 11:25 Moderate (Negative) 04/11/19 11:25 Moderate renal (Negative) 04/11/19 11:25 Ur Culture Indicated? Yes 04/11/19 11:25 Negative mg/dL (Negative) 04/11/19 11:25 Vancomycin Trough 21.7 ug/mL (10.0-20.0) H* 04/13/19 09:50 Lyme Disease Antibody Negative 04/13/19 16:25
[2019-04-16] MEDS: PIPERACILLIN/TAZO 4.5 GM in Normal Saline 100 ML IVPB ×2 (02:15→10:30)
[2019-04-16 04:15] VITALS: BP 109/71; PULSE 80; RESP 16; TEMP 36.2; O2SAT 98
[2019-04-16] MEDS: DOXYCYCLINE 100 MG in Normal Saline 100 ML IVPB (06:21)
[2019-04-16] MEDS: Normal Saline Flush 10 ML SYR IVP (06:21)
[2019-04-16 07:35] VITALS: BP 128/77; PULSE 75; RESP 20; TEMP 36.3; O2SAT 97
[2019-04-16 07:53] LABS: Abs Immature Grans 0.03 k/cumm (0.0-0.09); Absolute Basophil Count 0.03 k/cumm (0.0-0.2); Absolute Eosinophil Count 0.23 k/cumm (0.0-0.7); Absolute Lymphocyte Count 1.34 k/cumm (1.2-3.4); Absolute Monocyte Count 0.51 k/cumm (0.11-0.7); Basophils % 0.7; Eosinophils % 5.2; HGB 11.6 g/dL (12.0-15.5); Immature Grans % 0.7; Lymphocytes % 30.2; Mean Corp. HGB Concentration 34.1 g/dL (32.0-36.0); Mean Corpuscular Volume 96.6 fL (80-95); Mean Platelet Volume 10.2 fL (8.0-11.0); Monocytes % 11.5; Neutrophils % 51.7; RBC 3.52 m/cumm (4.00-5.20); RBC Distribution Width 14.3 % (11.7-14.6); White Blood Cell Count 4.44 k/cumm (4.4-10.8)
[2019-04-16 08:02] LABS: BUN 12 mg/dL (7-18); C-Reactive Protein 3.55 mg/dL (0.0-0.3); CO2 33.1 mmol/L (21.0-32.0); CREATININE 0.56 mg/dL (0.55-1.02); Calcium 8.3 mg/dL (8.5-10.1); Glucose 113 mg/dL (70-100); Magnesium 1.6 mg/dL (1.8-2.4); Potassium 3.8 mmol/L (3.5-5.1); Sodium 141 mmol/L (136-145)
[2019-04-16 08:07] LABS: Chloride 105 mmol/L (98-107)
[2019-04-16 08:08] LABS: Anion Gap 2.9 mmol/L (3-11)
[2019-04-16 08:30] LABS: Platelet Count 71 x1000/uL (130-400)
[2019-04-16 08:31] LABS: Diff Comment Diff Reviewed; RBC Morphology Normal
[2019-04-16] MEDS: Lactulose 20 GM/30 ML CUP 10 GM PO ×2 (08:43→14:06)
[2019-04-16] MEDS: Insulin Glargine 300 UNITS/3 ML PEN 15 UNITS SC (08:45)
[2019-04-16] MEDS: Zinc Sulfate 220 MG TAB PO (08:45)
[2019-04-16] MEDS: Sucralfate 1 GM TAB PO ×2 (08:46→11:22)
[2019-04-16] MEDS: Ferrous Sulfate 325 MG TAB PO (08:47)
[2019-04-16] MEDS: Pregabalin 100 MG CAP PO ×2 (08:47→14:05)
[2019-04-16] MEDS: Rifaximin 550 MG TAB PO (08:47)
[2019-04-16] MEDS: Furosemide 40 MG TAB PO (08:47)
[2019-04-16] MEDS: Pantoprazole 40 MG TABCR PO (08:48)
[2019-04-16 09:13] LABS: Procalcitonin 1.9 ng/mL
--- NOTE | 2019-04-16 11:03 | PCNE_ITS ---
Date of service: 04/15/19 Time of Service: 15:03 History of Present Illness Chief Complaint: probable pneumonia in immunocompromised pt Narrative: Mayra is a 64-year-old woman who is been a patient of mine for the last for 5 years. She has multiple comorbidities including diabetes, obesity, cirrhosis. Last week she became acutely ill and because of her high temperature and obtunded and is was brought to the ER. During this admission she was started on multiple antibiotics, underwent testing both laboratory and imaging, and was initially slow to respond. I was asked by the hospitalist to discuss goals of care. I am meeting with patient and her son. Consults Consult date: 04/15/19 Requesting physician: Maribel Sandoval Assessment and Plan (1) CAP (community acquired pneumonia): Current visit: No Status: Acute (2) Sepsis: Current visit: No Status: Acute (3) Aortic stenosis, severe: Current visit: No Status: Acute (4) Cervical disc disorder with myelopathy: Current visit: No Status: Resolved (5) Diabetes mellitus: Current visit: No Status: Chronic (6) Cirrhosis: Current visit: No Status: Chronic We spent a long time discussing advanced directives, her present health conditions, and what she would like in the future. She repeatedly stated I want to live I want to live I want to live. She is willing to do anything that it takes to prolong her life. She feels that her family knows when it would be time to stop aggressive treatment. We filled out a CO LST form stating full code. Review of Systems Review of Systems Mayra states that although she is very tired, she is feeling better than she did yesterday. She feels much better than she did a week ago. Constitutional Reports chills, Reports daytime sleepiness, Reports difficulty sleeping, Reports fatigue, Reports fever(s), Reports malaise and Reports weight loss Eyes Reports system reviewed and no additional complaints, except as docu ENT Reports system reviewed and no additional complaints, except as docu Cardiovascular Denies chest pain, Denies diaphoresis, Denies syncope, Reports irregular heart rhythm, Reports dyspnea and Reports dyspnea on exertion Respiratory Reports chest congestion, Reports cough, Reports dyspnea and Reports dyspnea on exertion Gastrointestinal Reports system reviewed and no additional complaints, except as docu Genitourinary Reports system reviewed and no additional complaints, except as docu Neurologic Denies syncope Psychiatric Denies depression Endocrine Reports fatigue [facility] Medical History Abdominal pain, chronic, epigastric (Resolved 03/23/16) Annual physical exam (Resolved 02/22/18) Bleeding esophageal varices (Resolved 03/10/16) Carpal tunnel syndrome (Resolved) Cervical disc disorder with myelopathy (Resolved) Cervical disc disorder with myelopathy (Resolved 09/04/12) Chronic epigastric pain (Chronic 03/23/16) Edema, unspecified (Resolved) Elev transaminase/LDH (Resolved) Elevation of level of transaminase and lactic acid dehydrogenase (LDH) (Chronic) Esophageal varices with hemorrhage Fever, unknown origin (Resolved) GI bleed (Resolved) Hepatic encephalopathy Incisional hernia (Resolved 01/15/15) Incisional hernia (Chronic 01/15/15) Mild epistaxis (Resolved) Thyroid nodule (Resolved) Surgical History Colonoscopy - IV Sedation (04/12/13) Open Carpal Tunnel release PROCEDURES S/P carpal tunnel release (Resolved) S/P cervical spinal fusion (Resolved) S/P cervical spinal fusion (Resolved) S/P tonsillectomy (Resolved) Status post biopsy of thyroid gland (Resolved) Status post carpal tunnel release (Resolved) Status post cervical spinal arthrodesis (Resolved) Status post tonsillectomy (Resolved) Tonsillectomy Family History Mother Pancreatic cancer Father Diabetes Essential hypertension Stroke Sister Heart disease Brother Bone cancer Liver cancer Maternal Grandfather No problems noted. Paternal Grandfather No problems noted. Maternal Grandmother No problems noted. Paternal Grandmother Breast cancer Sister Diabetes Colon cancer Rectal cancer Sister Diabetes Son No problems noted. Son No problems noted. Daughter No problems noted. Daughter Alcohol abuse Asthma Social History Smoking/Tobacco Use Status: Former Tobacco Use Alcohol Intake: never Drug use: Never Household members: spouse and children Housing: house Communication Needs: None Do you need help understanding health information?: Rarely Pets and animals: Yes Pets and animals: dog(s) Sexually active: No Do you think of yourself as: straight/heterosexual Current gender identity: female What is your relationship status?: How often do you talk on the phone with friends or family?: three or more times per week How often do you get together with friends or relatives?: once per week How often do you attend jew or tenriism services?: 1-3 times per year Do you belong to any clubs or organized social groups?: no Panel score (0-1 are the most socially isolated patients): 2 What type of physical activity do you participate in: decline to answer Duration: < 15 minutes/day Frequency: 1-2 times per week Lyubov/Gnosticism: Anabaptism Special lyubov needs: No Seatbelt use: always Helmet use: No Drive intox or ride w/intox truck driver instructor: No Do you feel safe in your relationship?: Yes Exam Narrative Exam Narrative: Patient is sitting on her bed. She looks to her son sometimes for answers. She is breathing regularly and speaking in complete sentences. Her mind is sharp and she is oriented x3. Resp Effort & Inspection: normal respiratory effort and able to speak in complete sentences Auscultation: vesicular breath sounds Cardio Rate: regular rate Rhythm: regular rhythm Psych Appearance: grossly normal Mental Status: mental status grossly normal Speech and Movement: speech clear Mood: congruent mood Affect: normal affect Attitude: cooperative Thought Process: normal Results Last Vital Signs Temp 97.3 F L 04/16/19 07:35 Pulse 75 04/16/19 07:35 Resp 20 04/16/19 07:35 BP 128/77 04/16/19 07:35 Pulse Ox 97 04/16/19 07:35 Labs : 04/16/19 07:25 04/16/19 07:25 Laboratory Results - last 24 hr 04/13/19 04/16/19 04/16/19 16:25 07:25 07:25 WBC RBC Hgb Hct MCV MCH MCHC RDW Plt Count MPV Immature Gran % Neutrophils % Lymphocytes % Monocytes % Eosinophils % Basophils % Absolute Neutrophils Absolute Lymphocytes Absolute Monocytes Absolute Eosinophils Absolute Basophils Differential Comment RBC Morphology Sodium 141 Potassium 3.8 Chloride 105 Carbon Dioxide 33.1 H Anion Gap 2.9 L BUN 12 Creatinine 0.56 Estimated GFR/1.73 m2 >= 60.00 Glucose 113 H Calcium 8.3 L Magnesium 1.6 L C-Reactive Protein 3.55 H Procalcitonin 1.9 Lyme Disease Antibody Negative 04/16/19 07:25 WBC 4.44 RBC 3.52 L Hgb 11.6 L Hct 34.0 L MCV 96.6 H MCH 33.0 MCHC 34.1 RDW 14.3 Plt Count 71 L MPV 10.2 Immature Gran % 0.7 Neutrophils % 51.7 Lymphocytes % 30.2 Monocytes % 11.5 Eosinophils % 5.2 Basophils % 0.7 Absolute Neutrophils 2.30 Absolute Lymphocytes 1.34 Absolute Monocytes 0.51 Absolute Eosinophils 0.23 Absolute Basophils 0.03 Differential Comment Diff reviewed RBC Morphology Normal Sodium Potassium Chloride Carbon Dioxide Anion Gap BUN Creatinine Estimated GFR/1.73 m2 Glucose Calcium Magnesium C-Reactive Protein Procalcitonin Lyme Disease Antibody
--- NOTE | 2019-04-16 11:50 | PDOC.CMDIS ---
LACE Index Scoring Tool - Questions: Length of Stay (in days): 4 - 6 Acuity (Admit via E.D.?): Yes Comorbidities: Diabetes w/o Complication, Mild Liver/Renal Disease E.D. Visits: 1 - Answers: Total Score: 11 Risk of Readmission: High Risk Care Management Discharge Reason for Hospitalization: Left lower extremity cellulitis, sepsis Discharge Plan: Mayra will return home with no additional services. She will follow up with her PCP and plan of care as prescribed. She will transport via private vehicle with family. Patient/Family Education Needs: Review discharge instructions, discuss Ask Me Three.
[2019-04-16] MEDS: MAGNESIUM SULFATE 2 GM/50 ML BAG IVPB (12:15)
[2019-04-16] MEDS: Insulin Aspart 300 UNITS/3 ML PEN SC (12:16)
--- NOTE | 2019-04-16 15:24 | DSE_ITS ---
Date of service: 04/16/19 Time of Service: 15:24 DS: Diagnosis Discharge Diagnosis (1) Sepsis: Status: Acute (2) CAP (community acquired pneumonia): Status: Acute (3) Breast mass: Status: Acute (4) Aortic stenosis, severe: Status: Acute (5) Cirrhosis: Status: Chronic (6) Diabetes mellitus: Status: Chronic (7) DVT prophylaxis: Status: Acute (8) Advance directive on file: Status: Acute (9) Epistaxis: Status: Acute (10) Pancytopenia: Status: Chronic Discharge Plan Disposition Patient Disposition: HOME Condition: Stable Discharge Details Chief Complaint: Fever Clinical Impression: Sepsis, Cellulitis Reason For Visit: LEFT LOWER EXTREMITY CELLULITITS,SEPSIS Admit Date/Time: 04/11/19 14:08 Admit Provider: Elliott Aguilar Attending Provider: Elliott Aguilar Primary Care Provider: Malu Baron ED Provider: Aki Oliva Hospital Course Hospital Course: Ms Calle is a 64 year old female with PMHx of hepatic cirrhosis, portal hypertension, and varices, s/p TIPS procedure, as well as IDDM2, hypertension, hyperlipidemia, obesity, admitted to [facility] on 04/11/19 with suspected cellulitis of left lower extremity. As the hospital course progressed, however, the appearance of patient's left lower extremity normalized, but the fevers continued. Other etiologies of fever were considered - her CT of the chest demonstrated a ground glass opacity in LLL, infectious vs inflammatory. She was treated with broad spectrum antibiotics (vancomycin/zosyn), but continued to spike fevers. Doxycycline was added to cover for atypical pneumonia and, possibly, tick borne illness, though clinical suspicion for this is low. Her tick studies are still pending. With addition of doxycycline, the patient defervesced. Her clinical markers of inflammation started to steadily decrease. Clinically she has improved as well. Her vancomycin was d/c'ed with continued improvement of inflammatory markers. Because the patient is considered immunosuppressed, she is getting discharged with 5 more days of antibiotics orally (doxycyline, augmentin). In addition, the patient has a heart murmur. Her echo reveals severe aortic stenosis. Her EF is preserved. She is being referred to [facility] [place] [place] cardiology on discharge for follow up. Finally, the preliminary read on patient's CT of the chest was suspicious for a possible breast neoplasm - final read stated edema of the breast. It is important that the patient follow up with an outpatient mammogram as outpatient to clarify this issue. The patient is medically stable for discharge home today. Care for patient as well as completion of discharge paperwork took 60 minutes on day of discharge. Home Meds and New Rx's Prescriptions: New doxycycline hyclate 100 mg capsule 100 mg PO BID Qty: 10 RF: 0 amoxicillin-pot clavulanate [Augmentin] 875-125 mg tablet 1 tab PO BID Qty: 10 RF: 0 Continued (DME) OneTouch Ultra Test strip 1 ea Miscellaneous QID Qty: 300 RF: 5 Lantus Solostar U-100 Insulin 100 unit/mL (3 mL) insulin pen 15 unit Sub-Q QAM RF: 0 ferrous sulfate [iron] 325 mg (65 mg iron) tablet 325 mg PO DAILY RF: 0 zinc sulfate 220 MG capsule 220 mg PO DAILY Qty: 90 RF: 3 (DME) pen needle, diabetic [BD Ultra-Fine Orig Pen Needle] 1 EACH needle 1 ea Miscellaneous BID Qty: 180 RF: 3 pantoprazole 40 MG tablet,delayed release (DR/EC) 40 mg PO DAILY Qty: 180 RF: 3 ondansetron HCl [Zofran] 4 mg tablet 4 mg PO DAILY PRN (Reason: nausea and vomiting) Qty: 90 RF: 3 sucralfate 1 gram tablet 1 gm PO AC & HS Qty: 360 RF: 12 lactulose 20 gram/30 mL solution 10 gm PO TID Qty: 1350 RF: 12 Xifaxan 550 mg tablet 550 mg PO BID Qty: 180 RF: 2 Humalog KwikPen Insulin 200 unit/mL (3 mL) insulin pen 6 unit subcut BID Qty: 15 RF: 8 pregabalin 100 mg capsule 100 mg PO TID Qty: 270 RF: 4 furosemide 20 mg tablet 40 mg PO DAILY Qty: 180 RF: 12 Discharge Instructions Instructions: Doxycycline (By mouth), Amoxicillin/Clavulanate Potassium (By mouth), Bacterial Pneumonia (DC) Additional Instructions: Finish antibiotics as prescribed. Stay away from the sun while taking doxycycline. Return to the hospital with any fever, bleeding, chest pain, or shortness of breath, or if there are any mental status changes. Follow up for an outpatient mammogram and with a invoicing specialist at [facility] [place]. Referrals: CARDIOLOGY,[facility] [place] [place] [OTHER] - (severe aortic stenosis) Activity:: Activity as Tolerated Equipment/Supplies:: No Equipment Needed Diet:: Low Sodium Discharge Orders Discharge Orders: Discharge Order (Routine); Ordered 04/16/19 Ordered By: Maribel Sandoval Other Ambulatory Orders: Basic Metabolic Panel (Routine) Timeframe: 1 Week Location: Determined by Patient Ordered By: Maribel Sandoval Complete Blood Count w/Diff (Routine) Timeframe: 1 Week Location: Determined by Patient Ordered By: Maribel Sandoval Liver Panel (Routine) Timeframe: 1 Week Location: Determined by Patient Ordered By: Maribel Sandoval Magnesium (Routine) Timeframe: 1 Week Location: Determined by Patient Ordered By: Maribel Sandoval Exam Narrative Exam Narrative: General: very pleasant obese female, A&OX3, looks better, jaundiced HEENT: EOMI, MMM Heart: RRR, + BOBO Lungs: CTAB GI: abdomen is soft, nontender, nondistended Extremities: +1 BLE pitting/woody edema; chronic venous stasis; no erythema DS: Data Vitals/I&O Vitals and I&O: Vital Signs Temperature 36.3 C L 04/16/19 07:35 Temperature Source Tympanic 04/16/19 07:35 Pulse 75 04/16/19 07:35 Pulse Rhythm Irregular 04/16/19 08:30 Respiratory Rate 20 04/16/19 07:35 Respiratory Effort Non-Labored 04/16/19 08:30 Respiratory Depth Normal 04/16/19 08:30 Respiratory Pattern Normal 04/16/19 08:30 Blood Pressure 128/77 04/16/19 07:35 Pulse Oximetry 97 04/16/19 07:35 Oxygen Delivery Method Room Air 04/16/19 07:35 Oxygen Flow Rate 0 04/16/19 07:35 Pain Level 0 04/16/19 07:35 Comment 04/12/19 17:50 Intake & Output 04/15/19 04/16/19 04/16/19 23:59 11:59 23:59 Intake Total 660 / 1510 450 / 520 70 / 520 Output Total 2300 / 3200 2475 / 2475 Balance -1640 / -169 -2024 / -1954 70 / -1955 Weight 118.7 kg Intake: IV 300 / 500 200 / 270 70 / 270 Oral 360 / 1010 250 / 250 Output: Urine 2300 / 3200 2475 / 2475 Other: Urine Color Light Jenna Pale Yellow Straw Urine Appearance Clear Clear Urine Odor None Normal Comment urine amount in hat. Stool Size Moderate Stool Characteristics Soft Brown Voiding Methods Toilet Toilet Completed studies during hospitalization [Text1]: CT abdomen/pelvis: Stable appearance of cirrhotic liver and splenomegaly. There is body wall edema and minimal fluid in the pelvis. No acute abnormality is seen. CXR 04/11/19: Mild cardiomegaly and mild CHF. CT chest 04/11/19: Mild lower lobe pulmonary edema and body wall edema. Small ground glass opacity in the left lower lobe, infectious or inflammatory. US venous LLE 04/12/19: Significant lower extremity edema. No evidence of DVT. Pending studies at discharge: Tick studies Labs on day of discharge: Labs from last 24 hours 04/16/19 04/16/19 04/16/19 07:25 07:25 07:25 WBC 4.44 RBC 3.52 L Hgb 11.6 L Hct 34.0 L MCV 96.6 H MCH 33.0 MCHC 34.1 RDW 14.3 Plt Count 71 L MPV 10.2 Immature Gran % 0.7 Neutrophils % 51.7 Lymphocytes % 30.2 Monocytes % 11.5 Eosinophils % 5.2 Basophils % 0.7 Absolute Neutrophils 2.30 Absolute Lymphocytes 1.34 Absolute Monocytes 0.51 Absolute Eosinophils 0.23 Absolute Basophils 0.03 Differential Comment Diff reviewed RBC Morphology Normal Sodium 141 Potassium 3.8 Chloride 105 Carbon Dioxide 33.1 H Anion Gap 2.9 L BUN 12 Creatinine 0.56 Estimated GFR/1.73 m2 >= 60.00 Glucose 113 H Calcium 8.3 L Magnesium 1.6 L C-Reactive Protein 3.55 H Procalcitonin 1.9 Preliminary micro results at discharge 04/13/19 12:10 Blood Culture - Preliminary Blood NO GROWTH 72 HOURS 04/13/19 16:27 Blood Culture - Preliminary Blood NO GROWTH 48 HOURS 04/11/19 13:26 Blood Culture - Preliminary Blood NO GROWTH 96 HOURS [facility] Medical History Abdominal pain, chronic, epigastric (Resolved 03/23/16) Annual physical exam (Resolved 02/22/18) Bleeding esophageal varices (Resolved 03/10/16) Carpal tunnel syndrome (Resolved) Cervical disc disorder with myelopathy (Resolved) Cervical disc disorder with myelopathy (Resolved 09/04/12) Chronic epigastric pain (Chronic 03/23/16) Edema, unspecified (Resolved) Elev transaminase/LDH (Resolved) Elevation of level of transaminase and lactic acid dehydrogenase (LDH) (Chronic) Esophageal varices with hemorrhage Fever, unknown origin (Resolved) GI bleed (Resolved) Hepatic encephalopathy Incisional hernia (Resolved 01/15/15) Incisional hernia (Chronic 01/15/15) Mild epistaxis (Resolved) Thyroid nodule (Resolved) Surgical History Colonoscopy - IV Sedation (04/12/13) Open Carpal Tunnel release PROCEDURES S/P carpal tunnel release (Resolved) S/P cervical spinal fusion (Resolved) S/P cervical spinal fusion (Resolved) S/P tonsillectomy (Resolved) Status post biopsy of thyroid gland (Resolved) Status post carpal tunnel release (Resolved) Status post cervical spinal arthrodesis (Resolved) Status post tonsillectomy (Resolved) Tonsillectomy Family History Mother Pancreatic cancer Father Diabetes Essential hypertension Stroke Sister Heart disease Brother Bone cancer Liver cancer Maternal Grandfather No problems noted. Paternal Grandfather No problems noted. Maternal Grandmother No problems noted. Paternal Grandmother Breast cancer Sister Diabetes Colon cancer Rectal cancer Sister Diabetes Son No problems noted. Son No problems noted. Daughter No problems noted. Daughter Alcohol abuse Asthma Social History Smoking/Tobacco Use Status: Former Tobacco Use Alcohol Intake: never Drug use: Never Household members: spouse and children Housing: house Communication Needs: None Do you need help understanding health information?: Rarely Pets and animals: Yes Pets and animals: dog(s) Sexually active: No Do you think of yourself as: straight/heterosexual Current gender identity: female What is your relationship status?: How often do you talk on the phone with friends or family?: three or more times per week How often do you get together with friends or relatives?: once per week How often do you attend baptist or yazidism services?: 1-3 times per year Do you belong to any clubs or organized social groups?: no Panel score (0-1 are the most socially isolated patients): 2 What type of physical activity do you participate in: decline to answer Duration: < 15 minutes/day Frequency: 1-2 times per week Lyubov/Confucianism: Faith Special lyubov needs: No Seatbelt use: always Helmet use: No Drive intox or ride w/intox race car driver: No Do you feel safe in your relationship?: Yes
[2019-04-16 16:05] VITALS: BP 116/73; PULSE 79; RESP 18; TEMP 37.1; O2SAT 95
[2019-04-16 19:42] LABS: Anaplasma phagocytophilum Negative (Negative); B. miyamotoi PCR Negative (Negative); Babesia divergens/MO-1 Negative (Negative); Babesia duncani Negative (Negative); Babesia microti Negative (Negative); Ehrlichia chaffeensis Negative (Negative); Ehrlichia ewingii/canis Negative (Negative); Ehrlichia muris eauclairensis Negative (Negative)
== END 2019-04-16 16:40 | disposition home or self-care (01) | DRG 871 ==
LOC: ER 14:10 → MS 15:43
PROVIDERS: Internal Medicine; Admitting Provider Internal Medicine; Emergency Provider Nurse Practitioner Family; PCP Family Medicine; Visit Provider Internal Medicine
DX: A41.9 Sepsis, unspecified organism (principal); J18.1 Lobar pneumonia, unspecified organism; L03.116 Cellulitis of left lower limb; K76.6 Portal hypertension; I85.10 Secondary esophageal varices without bleeding; Z68.42 Body mass index [BMI] 45.0-49.9, adult; D61.818 Other pancytopenia; I35.0 Nonrheumatic aortic (valve) stenosis; N63.20 Unspecified lump in the left breast, unspecified quadrant; K74.60 Unspecified cirrhosis of liver; E11.9 Type 2 diabetes mellitus without complications; I10 Essential (primary) hypertension; E78.5 Hyperlipidemia, unspecified; E66.9 Obesity, unspecified; R04.0 Epistaxis; Z79.4 Long term (current) use of insulin; Z96.89 Presence of other specified functional implants; I87.8 Other specified disorders of veins; Z71.3 Dietary counseling and surveillance
CPT/HCPCS: 36415; 36416; 36569; 80048; 80053; 80076; 82962; 84145; 87040; 87798; 93005; 96365; 96367; 96368; 97161; 99223; 99232; 99233; 99239; 99255; 99285; J1650; 71046; 71260; 74177; 80202; 81003; 81015; 82140; 83605; 83735; 83880; 84484; 85025; 86140; 86618; 87086; 87324; 93010; 93971; J2543; J3370; J3475; J3490

== ENCOUNTER 2019-09-20 08:50 | Outpatient (CLI) | payer MEDICARE, BC, SELFPAY ==
[2019-09-20 12:46] LABS: Hemoglobin A1C 5.1 % (3.8-5.6)
[2019-09-20 12:54] LABS: COMMENT (LAB VIEW ONLY) 31.37 mg/dL; Microalb ug/mg Crea 96.3 ug/mg Cr
[2019-09-20 12:57] LABS: ALT 43 U/L (14-59); AST 57 U/L (15-37); Albumin 2.4 g/dL (3.4-5.0); Alkaline Phosphatase 177 U/L (46-116); Anion Gap 4.1 mmol/L (3-11); BUN 11 mg/dL (7-18); Bilirubin, Total 3.5 mg/dL (0.2-1.0); CO2 33.9 mmol/L (21.0-32.0); CREATININE 0.67 mg/dL (0.55-1.02); Calcium 8.4 mg/dL (8.5-10.1); Chloride 104 mmol/L (98-107); Glucose 151 mg/dL (74-106); Potassium 3.9 mmol/L (3.5-5.1); Sodium 142 mmol/L (136-145); Total Protein 5.9 g/dL (6.4-8.2)
== END 2019-09-20 09:10 ==
PROVIDERS: PCP Family Medicine; Visit Provider Family Medicine
DX: E11.9 Type 2 diabetes mellitus without complications (principal); I10 Essential (primary) hypertension
CPT/HCPCS: 36415; 80053; 82043; 82570; 83036

== ENCOUNTER 2020-02-14 21:10 | Inpatient (IN) | payer MEDICARE, BC, SELFPAY ==
[2020-02-14] VITALS (33 sets, daily range): BP systolic 125–156; BP diastolic 30–54; PULSE 92–121; RESP 21–30; TEMP 37.4–39; O2SAT 91–97
--- NOTE | 2020-02-14 21:31 | W.ED.GENAD ---
Discharge Plan Disposition Patient Disposition: [facility] INPATIENT Condition: Stable Discharge Details Chief Complaint: Fever Clinical Impression: Fever, Sepsis Primary Care Provider: Malu Baron ED Provider: Shanelle Matson Home Meds and New Rx's Prescriptions: No Action (DME) blood sugar diagnostic [OneTouch Ultra Test] strip 1 ea Miscellaneous QID Qty: 300 RF: 5 pantoprazole 40 mg tablet,delayed release (DR/EC) 40 mg PO DAILY Qty: 180 RF: 3 lactulose 20 gram/30 mL solution 10 gm PO TID Qty: 1350 RF: 12 Xifaxan 550 mg tablet 550 mg PO BID Qty: 180 RF: 2 sucralfate 1 gram tablet 1 gm PO AC & HS Qty: 360 RF: 12 pregabalin 100 mg capsule 100 mg PO TID Qty: 270 RF: 4 ferrous sulfate [iron] 325 mg (65 mg iron) tablet 325 mg PO DAILY RF: 0 amlodipine 5 mg tablet 5 mg PO DAILY Qty: 90 RF: 5 zinc sulfate 220 MG capsule 220 mg PO DAILY Qty: 90 RF: 3 (DME) pen needle, diabetic [BD Ultra-Fine Orig Pen Needle] 1 EACH needle 1 ea Miscellaneous BID Qty: 180 RF: 3 ondansetron HCl [Zofran] 4 mg tablet 4 mg PO DAILY PRN (Reason: nausea and vomiting) Qty: 90 RF: 3 furosemide 20 mg tablet 40 mg PO DAILY Qty: 180 RF: 12 nystatin 100,000 unit/gram ointment 1 applic TP TID PRNRF: 0 Medical Decision Making 65-year-old female with a history of diabetes, hyperlipidemia, hepatic encephalopathy, hypertension presents with acute onset of fever today. Patient denies headache, sore throat, shortness of breath or cough, or any abdominal pain. She states that she did have an episode of loose stools today. She denies any dysuria. She denies any sick contacts. She does have rigors. She is febrile, she does have bilateral lower extremity edema which appears chronic in nature. She has some ointment over some wounds on her toes. She did not take any medications prior to arrival. 2207: Lactate is elevated at 2.6 COVID and flu swabs added on the labs. Patient is receiving 1 L normal saline wide open. Patient does have a white blood cell count at 12.07 shows mildly elevated, she does have a low platelet count of 84 which has been her baseline in the past. Sodium is 136, potassium is 4.4 glucose 121 magnesium is low at 1.5 total bilirubin is elevated at 5.0. Imaging protocol: XR of the chest Views: 1 view. COMPARISON: CR XR CHEST 2V PA LATERAL 04/11/2019 12:57 PM FINDINGS: Lungs: Significant diffuse bilateral ground-glass changes consistent with interstitial and alveolar disease. Pleural space: Unremarkable. No pleural effusion. No pneumothorax. Heart/Mediastinum: Unremarkable. No cardiomegaly. Bones/joints: Unremarkable. IMPRESSION: Significant diffuse bilateral ground-glass changes consistent with interstitial and alveolar disease. These findings are nonspecific. Pulmonary congestion and viral disease can have these imaging findings. Please correlate clinically for COVID 19 exposure. Thank you for allowing us to participate in the care of your patient. Dictated and Authenticated by: Galdino Gonsales MD 02/14/2020 10:48 PM Eastern Time ([place] & [place]) 6467: Chest x-ray findings are concerning for possible COVID 19, bilateral groundglass opacities noted, testing has already been sent and is pending at this time. Her elevated lactate, fever of unknown origin, chest x-ray and past medical history of diabetes aortic stenosis, hepatic encephalopathy and cirrhosis I feel this patient should be admitted for IV antibiotics and further work-up. Procalcitonin, C-reactive protein, d-dimer, ferritin added onto her labs. Hospitalist paged. Spoke with Dr. Palmer and discussed patient case in details concern for sepsis and possible COVID-19 infection. Fever with unknown source. Dr. Moraes agrees to accept patient for sepsis and recommends vancomycin order placed. Discussed plan with patient, verbalized understanding. Patient to be admitted to ICU. Medical Records Medical records reviewed: Yes I reviewed the patient's medical records. Lab Data Lab results reviewed: Yes I reviewed the patient's lab results. HPI General Mode of arrival: wheelchair. Date/Time Provider Initiated Documentation: 02/14/20 21:11. Limitations to Documentation: no limitations. Information obtained by: patient. HPI Narrative: 65-year-old female with a history of diabetes, hyperlipidemia, hepatic encephalopathy, hypertension presents with acute onset of fever today. Patient denies headache, sore throat, shortness of breath or cough, or any abdominal pain. She states that she did have an episode of loose stools today. She denies any dysuria. She denies any sick contacts. She does have rigors. She is febrile, she does have bilateral lower extremity edema which appears chronic in nature. She has some ointment over some wounds on her toes. She did not take any medications prior to arrival. Related Data Home Medications Medication Instructions Recorded Confirmed zinc sulfate 220 mg PO DAILY #90 tab-cap 01/10/17 02/14/20 pen needle, diabetic [BD #180 12/18/17 01/14/20 Ultra-Fine Orig Pen Needle] ferrous sulfate 325 mg (65 mg 325 mg PO DAILY tab 06/11/18 02/14/20 iron) tablet blood sugar diagnostic #300 strip 09/13/18 01/14/20 furosemide 40 mg PO DAILY #180 cap 04/16/19 02/14/20 pantoprazole 40 mg tablet,delayed 40 mg PO DAILY #180 tab 04/18/19 02/14/20 release ondansetron HCl 4 mg tablet 4 mg PO DAILY PRN #90 tab-cap 07/01/19 02/14/20 pregabalin 100 mg capsule 100 mg PO TID #270 cap 09/03/19 02/14/20 lactulose 20 gram/30 mL oral 10 gm PO TID #1350 ml 11/12/19 02/14/20 solution rifaximin 550 mg tablet 550 mg PO BID #180 tab 11/12/19 02/14/20 sucralfate 1 gram tablet 1 gm PO AC & HS #360 tab 11/12/19 02/14/20 amlodipine 5 mg tablet 5 mg PO DAILY #90 tab 01/14/20 02/14/20 nystatin 1 applic TP TID PRN 02/14/20 02/14/20 Previous Rx's Medication Instructions Recorded pen needle, diabetic [BD #180 12/18/17 Ultra-Fine Orig Pen Needle] blood sugar diagnostic #300 strip 09/13/18 furosemide 40 mg PO DAILY #180 cap 04/16/19 pantoprazole 40 mg tablet,delayed 40 mg PO DAILY #180 tab 04/18/19 release ondansetron HCl 4 mg tablet 4 mg PO DAILY PRN #90 tab-cap 07/01/19 pregabalin 100 mg capsule 100 mg PO TID #270 cap 09/03/19 lactulose 20 gram/30 mL oral 10 gm PO TID #1350 ml 11/12/19 solution rifaximin 550 mg tablet 550 mg PO BID #180 tab 11/12/19 sucralfate 1 gram tablet 1 gm PO AC & HS #360 tab 11/12/19 amlodipine 5 mg tablet 5 mg PO DAILY #90 tab 01/14/20 Allergies Allergy/AdvReac Type Severity Reaction Status Date / Time gabapentin Allergy Intermediate Local Unverified 02/14/20 22:37 reaction on skin lisinopril AdvReac Itching Verified 02/14/20 22:37 General Stated Complaint: Fever JÚNIOR: 2 Review of Systems Narrative: Constitutional: Positive fever, negative for weight loss, alert and oriented, well groomed, normal body habitus, appears uncomfortable. HEENT: Denies trauma, headaches, blurry vision, nasal discharge, sore throat, trouble swallowing. Chest: Denies chest pain, palpitations, irregular rhythm, hypertension. Respiratory: Denies Shortness of breath, cough, hemoptysis. GI: Denies abdominal pain, nausea, vomiting, diarrhea, constipation. : Denies dysuria, hematuria, flank pain, rectal bleeding. Neuro: Denies dizziness, blurry vision, weakness, syncope, headache or facial numbness. Hematologic: Denies easy bruising, intolerance to heat or cold, hair loss. [facility] Medical History Abdominal pain, chronic, epigastric (Resolved 03/23/16) Advance directive on file (Inactive) Annual physical exam (Resolved 02/22/18) Bleeding esophageal varices (Resolved 03/10/16) Breast mass (Inactive) CAP (community acquired pneumonia) (Inactive) Carpal tunnel syndrome (Resolved) right; s/p release Cellulitis (Inactive) Cervical disc disorder with myelopathy (Resolved) 09/04/12 C6-C7; s/p ACDF 2005 Cervical disc disorder with myelopathy (Resolved 09/04/12) Chronic epigastric pain (Chronic 03/23/16) DVT prophylaxis (Inactive) Edema, unspecified (Resolved) 06/28/16 B/L Elev transaminase/LDH (Resolved) Elevation of level of transaminase and lactic acid dehydrogenase (LDH) (Chronic) Epistaxis (Inactive) Esophageal varices with hemorrhage Fever (Inactive) Fever, unknown origin (Resolved) 04/14/16 GI bleed (Resolved) Hepatic encephalopathy Incisional hernia (Resolved 01/15/15) Incisional hernia (Chronic 01/15/15) Mild epistaxis (Resolved) 12/21/15 Sepsis (Inactive) Thyroid nodule (Resolved) right; 2008-[facility] [place]; 2.3cm nodule; neg. biopsy Uninodular goiter Surgical History Colonoscopy - IV Sedation (04/12/13) DR. Bhumika CLAYTON Open Carpal Tunnel release RIGHT PROCEDURES OTHER CERVICAL FUS ANT discectomy 2008 [facility] [place]; NEGATIVE THYROID BX S/P carpal tunnel release (Resolved) right S/P cervical spinal fusion (Resolved) anterior; discectomy S/P cervical spinal fusion (Resolved) anterior;discectomy S/P tonsillectomy (Resolved) Status post biopsy of thyroid gland (Resolved) 09/18/08 neg Status post carpal tunnel release (Resolved) Status post cervical spinal arthrodesis (Resolved) Status post tonsillectomy (Resolved) Tonsillectomy Family History Mother Pancreatic cancer Father Diabetes Essential hypertension Stroke Sister Heart disease Brother Bone cancer Liver cancer Maternal Grandfather No problems noted. Paternal Grandfather No problems noted. Maternal Grandmother , OLD AGE at age 89. No problems noted. Paternal Grandmother Breast cancer Sister Diabetes Colon cancer Rectal cancer Sister Diabetes Son No problems noted. Son No problems noted. Daughter No problems noted. Daughter Alcohol abuse Asthma Social History Smoking/Tobacco Use Status: Former Tobacco Use Alcohol Intake: never Drug use: Never Household members: spouse and children Housing: house Communication Needs: None Do you need help understanding health information?: Rarely Pets and animals: Yes Pets and animals: dog(s) Sexually active: No Do you think of yourself as: straight/heterosexual Current gender identity: female What is your relationship status?: How often do you talk on the phone with friends or family?: three or more times per week How often do you get together with friends or relatives?: once per week How often do you attend restorationism or sikh services?: 1-3 times per year Do you belong to any clubs or organized social groups?: no Panel score (0-1 are the most socially isolated patients): 2 What type of physical activity do you participate in: decline to answer Duration: < 15 minutes/day Frequency: 1-2 times per week Lyubov/Restorationist: Shinto Special lyubov needs: No Seatbelt use: always Helmet use: No Drive intox or ride w/intox commercial relief driver: No Do you feel safe at home: Yes Do you feel safe in your relationship?: Yes Exam Narrative Exam Narrative: Constitutional: Alert and oriented x3. Appears stated age. Normal body habitus. Appears uncomfortable, positive rigors. Head: Normocephalic, no trauma. Eyes: Pupils PERRLA, Red reflex noted, EOM's intact. Eyelids symmetrical without lesions, discharge, or swelling. ENT: Bilateral TM's WNL, External ear normal to inspection, no mastoid TTP, swelling, or erythema, Nasal turbinates WNL, no nasal discharge. Normal dentition, Posterior pharynx WNL, no exudate. Chest: Tachycardic, positive murmur heard, normal S1, S2, distal pulses intact. Resp: Lungs clear to auscultation bilaterally, no wheezes, rales, or rhonchi. Musculoskeletal: Normal gait, 5/5 strength to all four extremities. Skin: No suspicious rashes or lesions. Capillary refill less than 2 sec. bilateral lower extremity edema, appears chronic in nature. Has some wounds noted over the dorsal aspect of bilateral feet which has some ointment on there. Neurologic: Cranial nerves II-XII intact. Alert and oriented x 3. DTR's intact. Hematologic/Lymphatic: No ecchymosis, no lymphadenopathy. Course Vital Signs Vital signs: Vital Signs Temperature 39.0 C H 02/14/20 21:21 Pulse 120 H 02/14/20 21:21 Respiratory Rate 23 02/14/20 21:21 Blood Pressure 130/44 L 02/14/20 21:21 Pulse Oximetry 93 L 02/14/20 21:21 Temperature 39.0 C H 02/14/20 21:21 Temperature Source Skin 02/14/20 21:21 Pulse 120 H 02/14/20 21:21 Respiratory Rate 23 02/14/20 21:21 Blood Pressure 130/44 L 02/14/20 21:21 Blood Pressure Position Supine 02/14/20 21:21 Pulse Oximetry 93 L 02/14/20 21:21 Oxygen Delivery Method Room Air 02/14/20 21:21 Oxygen Flow Rate 0 02/14/20 21:21 Pain Level 0 02/14/20 21:21
[2020-02-14] MEDS: Ibuprofen 600 MG TAB PO (21:54)
[2020-02-14] MEDS: Normal Saline 1,000 ML 1000 ML IV (21:54)
[2020-02-14 21:58] LABS: Abs Immature Grans 0.04 k/cumm (0.0-0.09); Absolute Basophil Count 0.04 k/cumm (0.0-0.2); Basophils % 0.3; Eosinophils % 0.7; HCT 38.8 % (36.0-46.0); HGB 13.6 g/dL (12.0-15.5); Immature Grans % 0.3 %; Lymphocytes % 5.6; Mean Corp. HGB Concentration 35.1 g/dL (32.0-36.0); Mean Corpuscular Hemoglobin 33.3 pg (27.0-33.0); Mean Corpuscular Volume 95.1 fL (80-95); Mean Platelet Volume 9.4 fL (8.0-11.0); Monocytes % 6.5; Neutrophils % 86.6; RBC 4.08 m/cumm (4.00-5.20); RBC Distribution Width 14.2 % (11.7-14.6); White Blood Cell Count 12.07 k/cumm (4.4-10.8)
--- NOTE | 2020-02-14 22:00 | DI.RAD_ITS ---
EXAM: XR PORTABLE CHEST AP CLINICAL HISTORY: Fever TECHNIQUE: COMPARISON: CR XR CHEST 2V PA LATERAL from 04/11/2019 FINDINGS: Single portable chest film at 2234 hours. Heart appears enlarged. Prominent pulmonary interstitial markings are unchanged or less prominent in comparison with prior film March 2019 and are probably chr onic. No focal consolidation. No pleural effusion. IMPRESSION: No evidence of acute change.
[2020-02-14 22:07] LABS: Lactate 2.6 mmol/L (0.6-1.4)
[2020-02-14 22:24] LABS: Bilirubin Moderate (Negative); Blood Large (Negative); Clarity Cloudy (Clear); Glucose Negative (Negative); Ketones 15 mg/dL (Negative); Leukocyte Esterase Negative (Negative); Nitrite Negative (Negative)
[2020-02-14 22:28] LABS: ALT 46 U/L (14-59); AST 79 U/L (15-37); Absolute Eosinophil Count 0.08 k/cumm (0.0-0.7); Absolute Lymphocyte Count 0.68 k/cumm (1.2-3.4); Absolute Monocyte Count 0.78 k/cumm (0.11-0.7); Absolute Neutrophil Count 10.45 k/cumm (1.2-6.7); Albumin 2.7 g/dL (3.4-5.0); Alkaline Phosphatase 203 U/L (46-116); Anion Gap 4.7 mmol/L (3-11); BUN 17 mg/dL (7-18); CO2 31.3 mmol/L (21.0-32.0); CREATININE 0.83 mg/dL (0.55-1.02); Chloride 100 mmol/L (98-107); Glucose 121 mg/dL (74-106); Magnesium 1.5 mg/dL (1.8-2.4); Potassium 4.4 mmol/L (3.5-5.1); Sodium 136 mmol/L (136-145); Total Protein 6.7 g/dL (6.4-8.2)
[2020-02-14 22:30] LABS: Diff Comment Agrees w/ Instrument; Platelet Count 84 x1000/uL (130-400); RBC Morphology Normal
[2020-02-14] MEDS: cefTRIAXone 1 GM/50 ML BAG IVPB (22:31)
--- NOTE | 2020-02-14 22:49 | DI.VRAD_ITS ---
PROCEDURE INFORMATION: Exam: XR Chest, 1 View Exam date and time: 02/14/2020 10:30 PM Age: 65 years old Clinical indication: Other: Fever; Additional info: Patient refused to remove jewelry, never had neck surgery TECHNIQUE: Imaging protocol: XR of the chest Views: 1 view. COMPARISON: CR XR CHEST 2V PA LATERAL 04/11/2019 12:57 PM FINDINGS: Lungs: Significant diffuse bilateral ground-glass changes consistent with interstitial and alveolar disease. Pleural space: Unremarkable. No pleural effusion. No pneumothorax. Heart/Mediastinum: Unremarkable. No cardiomegaly. Bones/joints: Unremarkable. IMPRESSION: Significant diffuse bilateral ground-glass changes consistent with interstitial and alveolar disease. These findings are nonspecific. Pulmonary congestion and viral disease can have these imaging findings. Please correlate clinically for COVID 19 exposure. Dictated and Authenticated by: Galdino Gonsales MD. Ordering:CYNTHIA Timmons MD
[2020-02-14] MEDS: MAGNESIUM SULFATE 1 GM/100 ML BAG IVPB (22:50)
[2020-02-14 22:55] LABS: Bacteria Moderate HPF (Negative); C & S Indicated? Yes; Casts Negative LPF (Negative); Crystals Negative HPF (Negative); Epithelial Cells Rare HPF (Negative); Mucus Trace (Negative); Other Cells Few Yeast (Negative); RBC >50 HPF (0-2)
--- NOTE | 2020-02-14 23:15 | W.PM.HP.N ---
Date of service: 02/14/20 Time of Service: 23:15 Assessment and Plan Assessment and plan (1) Sepsis syndrome: Start date: 02/14/20 Status: Acute Assessment and plan: This is a 65-year-old lady who presented to the ED with sepsis syndrome without obvious source other than infiltrates on the chest x-ray and a positive UA with no symptoms of either respiratory infection or UTI. She had rigors and fever with mostly GI symptoms including nausea and 1 loose stool. She was screened for COVID-19. She will be treated as a PUI in the ICU with close monitoring of her blood pressure and fluid status while initiating appropriate antibiotics. She also will have IV hydration with her CKD which appears chronic slightly exacerbated. At the time I saw the patient she was not tachycardic and had less of a fever but is still fatigued. She was interested in going home quickly but I counseled her on the natural course of sepsis and the treatment which may take up to 72 hours. Will need to follow-up on cultures and modify antibiotic therapy prior to going home. (2) Pneumonia: Start date: 02/14/20 Status: Acute Assessment and plan: Viral appearing without focal consolidation. IV vancomycin and Zosyn will be initiated with close monitoring of vital signs of worsening sepsis. Follow-up chest x-ray as indicated. She has been screened for COVID-19. Precautions with spread of infection as per protocol for PUI. Qualifiers: Laterality: bilateral Lung location: unspecified part of lung Pneumonia type: due to unspecified organism Qualified Code(s): J18.9 - Pneumonia, unspecified organism (3) Cirrhosis: Status: Chronic Assessment and plan: This appears to be stable but may be compromised the patient's immune system. Monitor lab as we treat the acute infection and fluid resuscitate. Qualifiers: Hepatic cirrhosis type: other cirrhosis Qualified Code(s): K74.69 - Other cirrhosis of liver (4) Diabetes mellitus: Status: Chronic Assessment and plan: Patient will be placed on before meals and at bedtime glucometer checks with mealtime coverage using short acting insulin. Qualifiers: Diabetes mellitus complication status: without complication Diabetes mellitus retirement insulin use: without ferry terminal supervisor use Diabetes mellitus type: type 2 Qualified Code(s): E11.9 - Type 2 diabetes mellitus without complications (5) Aortic stenosis, severe: Status: Chronic Assessment and plan: Patient is a has appeared to be progressing her recent echo in March 2019 but she is not symptomatic at this time. Precaution with fluid resuscitation and follow-up echo if indicated. History of Present Illness History of Present Illness Chief Complaint: Fever with nausea Narrative: This is a 65-year-old lady who presented to the ED with acute onset of fever with nausea and one loose stool the day of admission. She has had no sick contacts recently and has been wearing a mask and gloves when she goes out in public with COVID-19 pandemic and social distancing. She is diabetic but presently on diet control and off insulin. She is obese and has chronic peripheral edema with skin changes and breakdown over her feet which she uses an ointment. She has had no increased redness or pain in her legs or feet. She did have rigors with her fever and appeared septic upon presentation to the ED with a high fever, elevated WBC, tachycardia and tachypnea. She was not hypotensive. In the ED she was started on IV antibiotics after urine and blood cultures obtained. Imaging did reveal bilateral groundglass-like infiltrates consistent with a viral pneumonia without large consolidations. The patient does have a history of hepatic encephalopathy and cirrhosis on medical therapy but this was no change in her mentation recently. She has been fatigued and felt weak with her fever and acute illness. She did have an echocardiogram performed in the summer 2018 which showed a preserved left ventricular ejection fraction but she does have moderate to severe aortic stenosis which appears to be progressive. She has had no progressive dyspnea upon exertion but is fairly immobile with her obesity. Review of Systems Narrative: 13 point review of systems otherwise unrevealing or stable. The patient has chronic pain with multiple back surgeries. She has had no upper respiratory symptoms such as headache or sore throat. As stated she did have some mild GI symptoms with nausea and one loose stool. She denies melena or hematochezia. [facility], LAT[facility] Medical History Abdominal pain, chronic, epigastric (Resolved 03/23/16) Advance directive on file (Inactive) Annual physical exam (Resolved 02/22/18) Bleeding esophageal varices (Resolved 03/10/16) Breast mass (Inactive) CAP (community acquired pneumonia) (Inactive) Carpal tunnel syndrome (Resolved) right; s/p release Cellulitis (Inactive) Cervical disc disorder with myelopathy (Resolved) 09/04/12 C6-C7; s/p ACDF 2005 Cervical disc disorder with myelopathy (Resolved 09/04/12) Chronic epigastric pain (Chronic 03/23/16) DVT prophylaxis (Inactive) Edema, unspecified (Resolved) 06/28/16 B/L Elev transaminase/LDH (Resolved) Elevation of level of transaminase and lactic acid dehydrogenase (LDH) (Chronic) Epistaxis (Inactive) Esophageal varices with hemorrhage Fever (Inactive) Fever, unknown origin (Resolved) 04/14/16 GI bleed (Resolved) Hepatic encephalopathy Incisional hernia (Resolved 01/15/15) Incisional hernia (Chronic 01/15/15) Mild epistaxis (Resolved) 12/21/15 Sepsis (Inactive) Thyroid nodule (Resolved) right; 2008-[facility] [place]; 2.3cm nodule; neg. biopsy Uninodular goiter Surgical History Colonoscopy - IV Sedation (04/12/13) DR. Bhumika CLAYTON Open Carpal Tunnel release RIGHT PROCEDURES OTHER CERVICAL FUS ANT discectomy 2008 [facility] [place]; NEGATIVE THYROID BX S/P carpal tunnel release (Resolved) right S/P cervical spinal fusion (Resolved) anterior; discectomy S/P cervical spinal fusion (Resolved) anterior;discectomy S/P tonsillectomy (Resolved) Status post biopsy of thyroid gland (Resolved) 09/18/08 neg Status post carpal tunnel release (Resolved) Status post cervical spinal arthrodesis (Resolved) Status post tonsillectomy (Resolved) Tonsillectomy Family History Mother Pancreatic cancer Father Diabetes Essential hypertension Stroke Sister Heart disease Brother Bone cancer Liver cancer Maternal Grandfather No problems noted. Paternal Grandfather No problems noted. Maternal Grandmother , OLD AGE at age 89. No problems noted. Paternal Grandmother Breast cancer Sister Diabetes Colon cancer Rectal cancer Sister Diabetes Son No problems noted. Son No problems noted. Daughter No problems noted. Daughter Alcohol abuse Asthma Social History Smoking/Tobacco Use Status: Former Tobacco Use Alcohol Intake: never Drug use: Never Household members: spouse and children Housing: house Communication Needs: None Do you need help understanding health information?: Rarely Pets and animals: Yes Pets and animals: dog(s) Sexually active: No Do you think of yourself as: straight/heterosexual Current gender identity: female What is your relationship status?: How often do you talk on the phone with friends or family?: three or more times per week How often do you get together with friends or relatives?: once per week How often do you attend rastafari or islam services?: 1-3 times per year Do you belong to any clubs or organized social groups?: no Panel score (0-1 are the most socially isolated patients): 2 What type of physical activity do you participate in: decline to answer Duration: < 15 minutes/day Frequency: 1-2 times per week Lyubov/Caodaism: Hoahaoism Special lyubov needs: No Seatbelt use: always Helmet use: No Drive intox or ride w/intox route delivery service driver: No Do you feel safe at home: Yes Do you feel safe in your relationship?: Yes Meds Home Medications and Allergies Home Medications Medication Instructions Recorded Confirmed Type zinc sulfate 220 mg PO DAILY #90 tab-cap 01/10/17 02/14/20 History pen needle, diabetic [BD #180 12/18/17 01/14/20 Rx Ultra-Fine Orig Pen Needle] ferrous sulfate 325 mg (65 mg 325 mg PO DAILY tab 06/11/18 02/14/20 History iron) tablet blood sugar diagnostic #300 strip 09/13/18 01/14/20 Rx furosemide 40 mg PO DAILY #180 cap 04/16/19 02/14/20 Rx pantoprazole 40 mg tablet,delayed 40 mg PO DAILY #180 tab 04/18/19 02/14/20 Rx release ondansetron HCl 4 mg tablet 4 mg PO DAILY PRN #90 tab-cap 07/01/19 02/14/20 Rx pregabalin 100 mg capsule 100 mg PO TID #270 cap 09/03/19 02/14/20 Rx lactulose 20 gram/30 mL oral 10 gm PO TID #1350 ml 11/12/19 02/14/20 Rx solution rifaximin 550 mg tablet 550 mg PO BID #180 tab 11/12/19 02/14/20 Rx sucralfate 1 gram tablet 1 gm PO AC & HS #360 tab 11/12/19 02/14/20 Rx amlodipine 5 mg tablet 5 mg PO DAILY #90 tab 01/14/20 02/14/20 Rx nystatin 1 applic TP TID PRN 02/14/20 02/14/20 History Allergies Allergy/AdvReac Type Severity Reaction Status Date / Time gabapentin Allergy Intermediate Local Unverified 02/15/20 00:12 reaction on skin lisinopril AdvReac Itching Verified 02/15/20 00:12 Exam Narrative Exam Narrative: General: Patient appears older than stated age, alert and oriented x3 and easily awakened. She is in moderate distress from her discomfort with fever and nausea. She is obese. HEENT: Normocephalic with coarsened facial features, pupils equal and reactive light symmetrically, extraocular movement intact and sclera anicteric. Oropharynx with dry oral mucosa and essentially edentulous. External ears normal. Neck: Supple without JVD. Back: Kyphotic with no CVA tenderness and decreased range of motion. Lungs: Bilateral coarse crackles especially over the bases but no focalizing. No increased expiratory phase or expiratory wheeze. Bronchovesicular breath sounds diffusely. Fair aeration. Breast: Exam deferred. Heart: Regular rate and rhythm with patient being previously tachycardic. 4/6 crescendo systolic murmur over left sternal border which is high-pitched. No gallops or rubs. Abdomen: Obese contour, soft and nontender to palpation without palpable hepatosplenomegaly. Genitalia/rectal: Exam deferred. Extremities: No clubbing or cyanosis. Obese over upper and lower extremities except for atrophic contraction over both legs and ankles worse on the right than the left with hypopigmented skin, loss of hair and atrophic shiny skin without obvious ulcers except between the toes. No localizing increased warmth to touch or erythema with a skin having chronic appearing changes. Skin: Skin changes over lower extremities as mentioned otherwise pale, warm and dry. No other rashes. Neuro: Cranial nerves II through XII grossly intact. No focalizing motor deficits with patient generally weak. Psych: No abnormal thought processes, remote and recent memory appear to be intact. Affect slightly flattened with her acute illness. Mood appears normal. Results Imaging Imaging Studies: Exam: XR Chest, 1 View Exam date and time: 02/14/2020 10:30 PM Age: 65 years old Clinical indication: Other: Fever; Additional info: Patient refused to remove jewelry, never had neck surgery TECHNIQUE: Imaging protocol: XR of the chest Views: 1 view. COMPARISON: CR XR CHEST 2V PA LATERAL 04/11/2019 12:57 PM FINDINGS: Lungs: Significant diffuse bilateral ground-glass changes consistent with interstitial and alveolar disease. Pleural space: Unremarkable. No pleural effusion. No pneumothorax. Heart/Mediastinum: Unremarkable. No cardiomegaly. Bones/joints: Unremarkable. IMPRESSION: Significant diffuse bilateral ground-glass changes consistent with interstitial and alveolar disease. These findings are nonspecific. Pulmonary congestion and viral disease can have these imaging findings. Please correlate clinically for COVID 19 exposure. Transthoracic Echocardiography M-mode, complete 2D, complete spectral Doppler, and color Doppler *STUDY CONCLUSIONS* Impressions: has progressed to the borderline severe range. Summary: 1. Left ventricle: The cavity size was normal. Wall thickness was increased in a pattern of mild LVH. Systolic function was normal. The estimated ejection fraction was 60-65%. Wall motion was normal; there were no regional wall motion abnormalities. 2. Aortic valve: Transvalvular velocity was increased, due to stenosis. There was severe stenosis. Valve area (VTI): 1.2cm^2. Valve area (Vmax): 0.9cm^2. Valve area (Vmean): 1cm^2. 3. Mitral valve: Mildly calcified annulus. Mildly thickened leaflets. There was mild regurgitation. 4. Left atrium: The atrium was moderately dilated. 5. Right ventricle: The cavity size was at the upper limits of normal. Wall thickness was normal. Systolic function was normal. 6. Right atrium: The atrium was mildly dilated. 7. Pulmonary arteries: Pulmonary systolic pressure was mildly to moderately increased. PA peak pressure: 45mm Hg (S). Dictated and Authenticated by: Galdino Gonsales MD. Labs Result diagrams: 02/14/20 21:35 02/14/20 21:35 Labs: Laboratory Results - last 24 hr 02/14/20 02/14/20 02/14/20 21:35 21:35 21:35 WBC 12.07 H RBC 4.08 Hgb 13.6 Hct 38.8 MCV 95.1 H MCH 33.3 H MCHC 35.1 RDW 14.2 Plt Count 84 L MPV 9.4 Immature Gran % 0.3 Neutrophils % 86.6 Lymphocytes % 5.6 Monocytes % 6.5 Eosinophils % 0.7 Basophils % 0.3 Absolute Neutrophils 10.45 H Absolute Lymphocytes 0.68 L Absolute Monocytes 0.78 H Absolute Eosinophils 0.08 Absolute Basophils 0.04 Differential Comment Agrees w/ instrument RBC Morphology Normal Sodium 136 Potassium 4.4 Chloride 100 Carbon Dioxide 31.3 Anion Gap 4.7 BUN 17 Creatinine 0.83 Estimated GFR/1.73 m2 >= 60.00 Glucose 121 H Lactate 2.6 H* Calcium 9.0 Magnesium 1.5 L Total Bilirubin 5.0 H AST 79 H ALT 46 Alkaline Phosphatase 203 H Total Protein 6.7 Albumin 2.7 L Urine Color Urine Clarity Urine pH Ur Specific [place] Urine Protein Urine Ketones Urine Blood Urine Nitrite Urine Bilirubin Urine Urobilinogen Ur Leukocyte Esterase Urine RBC Urine WBC Ur Epithelial Cells Urine Crystals Urine Bacteria Urine Casts Urine Mucus Urine Other Ur Culture Indicated? Urine Glucose 02/14/20 21:45 WBC RBC Hgb Hct MCV MCH MCHC RDW Plt Count MPV Immature Gran % Neutrophils % Lymphocytes % Monocytes % Eosinophils % Basophils % Absolute Neutrophils Absolute Lymphocytes Absolute Monocytes Absolute Eosinophils Absolute Basophils Differential Comment RBC Morphology Sodium Potassium Chloride Carbon Dioxide Anion Gap BUN Creatinine Estimated GFR/1.73 m2 Glucose Lactate Calcium Magnesium Total Bilirubin AST ALT Alkaline Phosphatase Total Protein Albumin Urine Color Brown Urine Clarity Cloudy Urine pH 6.0 Ur Specific [place] 1.020 Urine Protein 100 H Urine Ketones 15 H Urine Blood Large H Urine Nitrite Negative Urine Bilirubin Moderate H Urine Urobilinogen 1.0 H Ur Leukocyte Esterase Negative Urine RBC >50 H Urine WBC 5-10 Ur Epithelial Cells Rare Urine Crystals Negative Urine Bacteria Moderate Urine Casts Negative Urine Mucus Trace Urine Other Few yeast Ur Culture Indicated? Yes Urine Glucose Negative Last Vital Signs Temp 38.7 C H 02/14/20 22:58 Pulse 114 H 02/14/20 22:31 Resp 26 H 02/14/20 22:31 BP 156/54 H 02/14/20 22:31 Pulse Ox 92 L 02/14/20 22:31 COVID-19 Screening In the past 14 days, have you traveled outside of [place] or [place]?: NO Had IN PERSON contact w/suspected or confirmed C-19 person: No
[2020-02-15] VITALS (120 sets, daily range): BP systolic 79–169; BP diastolic 25–151; PULSE 74–122; RESP 14–28; TEMP 36.8–37.6; O2SAT 91–98
[2020-02-15] MEDS: PIPERACILLIN/TAZO 4.5 GM in Normal Saline 100 ML IVPB ×4 (00:03→18:07)
[2020-02-15 00:18] LABS: C-Reactive Protein 2.33 mg/dL (0.0-0.3)
[2020-02-15] MEDS: VANCOMYCIN 1,500 MG in Normal Saline 250 ML 166.6666 MG IVPB (00:35)
[2020-02-15 01:30] LABS: Ferritin 231 ng/mL (8-252)
[2020-02-15] MEDS: Heparin 5,000 UNITS/ML VIAL 5000 UNITS SC ×3 (02:14→20:30)
[2020-02-15] MEDS: Normal Saline 1,000 ML 250 ML IV ×2 (02:15→10:09)
[2020-02-15 07:08] LABS: Lactate 2.3 mmol/L (0.6-1.4); Magnesium 1.5 mg/dL (1.8-2.4)
[2020-02-15 07:19] LABS: INR 1.3 (0.9-1.1); Prothrombin Time 12.8 sec (9.3-11.0)
[2020-02-15 07:21] LABS: Mean Corp. HGB Concentration 34.3 g/dL (32.0-36.0); Mean Corpuscular Hemoglobin 33.3 pg (27.0-33.0); Mean Corpuscular Volume 97.2 fL (80-95); Mean Platelet Volume 9.8 fL (8.0-11.0); RBC Distribution Width 14.7 % (11.7-14.6); White Blood Cell Count 15.77 k/cumm (4.4-10.8)
[2020-02-15 07:26] LABS: ALT 36 U/L (14-59); AST 63 U/L (15-37); Albumin 2.1 g/dL (3.4-5.0); Alkaline Phosphatase 143 U/L (46-116); Anion Gap 3.8 mmol/L (3-11); BUN 23 mg/dL (7-18); Bilirubin, Total 4.6 mg/dL (0.2-1.0); CO2 29.2 mmol/L (21.0-32.0); CREATININE 1.18 mg/dL (0.55-1.02); Calcium 7.8 mg/dL (8.5-10.1); Chloride 105 mmol/L (98-107); Estimated GFR 46.26 (mL/min/1.73m2); Glucose 119 mg/dL (74-106); Potassium 3.8 mmol/L (3.5-5.1); Sodium 138 mmol/L (136-145); Total Protein 5.4 g/dL (6.4-8.2)
[2020-02-15 07:36] LABS: Platelet Count 75 x1000/uL (130-400)
[2020-02-15 07:45] LABS: TSH 0.53 uIU/mL (0.36-3.74)
--- NOTE | 2020-02-15 08:23 | INITIAL_ITS ---
- If Service Date Differs Date of service: 02/15/20 Time of Service: 13:02 Care Management Initial Assess REASON FOR HOSPITALIZATION:: Sepsis syndrome, bilateral pneumonia PAST MEDICAL HISTORY/PAST SURGICAL HISTORY:: Abdominal pain-chronic epigastric, bleeding esophageoal varices with hemorrhage, breast mass, CAP, carpal tunnel syndrome, cellulitis, cervical disorder with myelopathy, DVT, edema, elev transaminase/LDH, epistaxis, fever, GI bleed, hepatic encephalopathy, incisional hernia, sepsis, thyroid nodule, uninodular goiter, colonoscopy, carpal tunnel release, cervical spinal fusion, tonsillectomy, biopsy of thyroid gland PREVIOUS FUNCTIONAL STATUS/SOCIAL/FAMILY SUPPORTS:: Mayra lives in a single family home in [place] with her and daughter. She has 3 other grown children. Mayra is not currently employed. She is independent with all ADLs and activities. CURRENT FUNCTIONAL STATUS:: Mayra is on CV-19 PUI precautions awaiting results of testing. CM continues to follow. ADVANCE DIRECTIVES:: Germain Calle [facility] [phone] Has patient been provided with information about the portal?: Yes Did the patient sign up for the portal?: No CODE STATUS:: Full Code INSURANCE COVERAGE / FINANCIAL ISSUES:: BS CURRENT HOME/COMMUNITY SERVICES/EQUIPMENT:: Glucometer PRIMARY CARE PHYSICIAN:: Malu Baron POTENTIAL DISCHARGE NEEDS:: Follow up with PCP and discharge plan of care. PATIENT/FAMILY EDUCATION NEEDS:: Discharge plan, limitations, follow up plan, Ask Me Three. ANTICIPATED BARRIERS TO DISCHARGE:: None identified at this time. TRANSPORTATION:: Via private vehicle with family. PLAN:: Mayra remains in the ICU at this time, being closely monitored for sepsis syndrome and bilateral pneumonia. CM continues to follow. Anticipate Mayra will return home when ready per MD, she will follow up with her PCP and transport via private vehicle with family.
[2020-02-15] MEDS: Normal Saline Flush 10 ML SYR IVP (08:32)
[2020-02-15] MEDS: Ferrous Sulfate 325 MG TAB PO (08:33)
[2020-02-15] MEDS: Sucralfate 1 GM TAB PO ×4 (08:33→21:56)
[2020-02-15] MEDS: Pantoprazole 40 MG TABCR PO (08:33)
[2020-02-15] MEDS: Rifaximin 550 MG TAB PO ×2 (08:33→20:09)
[2020-02-15] MEDS: Lactulose 20 GM/30 ML CUP 10 GM PO ×3 (08:34→20:08)
[2020-02-15] MEDS: Pregabalin 100 MG CAP PO ×3 (08:34→20:09)
[2020-02-15] MEDS: MAGNESIUM SULFATE 4 GM/100 ML BAG IVPB (08:39)
[2020-02-15 08:48] LABS: NT-proBNP 1039 pg/mL (<300)
[2020-02-15 10:21] LABS: D-Dimer 1320 ng/mlFEU (<500)
[2020-02-15 10:28] LABS: Procalcitonin 7.6 ng/mL
--- NOTE | 2020-02-15 10:35 | PHA.REVIEW ---
Pharmacy Admission Review - Admission Clinical Review (Last Reviewed 02/14/20 @ 23:47 by Ruiz Palmer) Sepsis syndrome (Acute) Pneumonia (Acute) gabapentin Allergy (Intermediate, Unverified 02/15/20 00:12) Local reaction on skin lisinopril Adverse Reaction (Verified 02/15/20 00:12) Itching Height 5 ft 2 in Weight 111.3 kg - Renal Dosing Renal Dosing: BUN 23 mg/dL (7-18) H 02/15/20 06:30 Creatinine 1.18 mg/dL (0.55-1.02) H 02/15/20 06:30 Medications needing adjustments: Reviewed (Crcl ~57.5 mL/min using adjusted body weight, current meds okay) - Anticoagulation Anticoagulation: Hgb 12.0 g/dL (12.0-15.5) 02/15/20 06:30 Hct 35.0 % (36.0-46.0) L 02/15/20 06:30 Plt Count 75 x1000/uL (130-400) L 02/15/20 06:30 INR 1.3 (0.9-1.1) H 02/15/20 06:30 Creatinine 1.18 mg/dL (0.55-1.02) H 02/15/20 06:30 DVT Prohphylaxis: Reviewed Medications: Heparin (watch plts, looks like pt's plts count tends to be on low side) Therapeutic Anticoagulation: N/A - Opiate Usage Evaluate Pain Scale/Pains Meds: N/A - Relevant Labs Sodium 138 mmol/L (136-145) 02/15/20 06:30 Potassium 3.8 mmol/L (3.5-5.1) 02/15/20 06:30 Chloride 105 mmol/L (98-107) 02/15/20 06:30 Magnesium 1.5 mg/dL (1.8-2.4) L 02/15/20 06:30 C-Reactive Protein 2.33 mg/dL (0.0-0.3) H 02/14/20 23:30 Electrolytes, C-Reactive P, ESR: Reviewed (IV mag replacement ordered; K+ in IVF) - DM Control DM Control: Glucose 119 mg/dL (74-106) H 02/15/20 06:30 Finger Stick Blood Glucose 123 Finger Stick Blood Glucose 123 Insulin Dosing: Reviewed (sliding scale aspart ordered) - Heart Failure/KS Heart Failure/KS: NT-Pro-B Natriuret Pep 1039 pg/mL (<300) H 02/14/ 06:30 EF%, VANESSA's, B-Blockers, Diuretics: Reviewed (amlodipine) - BP Control BP Control: Blood Pressure [Right Arm] 93/51 Blood Pressure 118/72 Blood Pressure 121/78 Blood Pressure 104/52 Blood Pressure 87/51 Blood Pressure 88/53 Blood Pressure 90/59 If elevated: N/A (amlodipine on hold (hypotensive)) - Qtc Review If Elevated: N/A - IV to PO Switch IV Medications: N/A - Home Meds Home Med List reviewed: Reviewed (separate admin of PO furosemide and sucralfate by at least 2 hours) Relevent Home Meds Not ordered & why?: furosemide, nystatin, zinc sulfate - Current meds Current Medication Order Review: Intervened (adjusted time of pantoprazole) - Comments Comments/Follow Ups: Watch BP, BG, plts, mag, K+, and renal function. Follow vanco dosing. Antibiotic Activity - Pharmacy Antibiotic Review Pharmacy Antibiotic Activity: C/S review (blood culture gram stains show gram+ cocci, urine culture pending, rapid flu negative. procalcitonin 7.6)
--- NOTE | 2020-02-15 10:40 | NUR.NOTE ---
Laboratory called and notified Bhumika Thompson RN that the D-Dimer and Procalcitonin values from 02/13 2130 and 2330 had been switched. The D-Dimer was corrected to 1320 and the Procalcitonin to 7.6. Dr. Streeter Pathologist [facility] consulted and he is contacting Dr. Rich regarding the change. Nursing Note:
--- NOTE | 2020-02-15 11:04 | PGE_ITS ---
Date of Service Date of service: 02/15/20 Time of Service: 11:04 Assessment and Plan Assessment and plan (1) Sepsis syndrome: Status: Acute Assessment and plan: Patient presented with sepsis without endorgan damage. She had a lactic acidosis along with hypotension and elevated procalcitonin and elevated d-dimer. Blood cultures have turned positive for gram-positive cocci. In light of her cardiac murmur there is concerned that she may have an endocarditis. I will continue the Zosyn and vancomycin pending results of her blood culture identification and sensitivity. We will try to get an echocardiogram on Monday. I attempted a bedside [id number] ultrasound but really could not obtain adequate images to make any determination as far as any vegetation goes. Her LV function appeared to be normal her RV appears to be enlarged but normal in terms of systolic function. She has a heavily calcified aortic valve and mitral valve but is unable to obtain a numbers to determine severity of valvular stenosis or insufficiency. She seems to be responding to the IV fluids but because of her peripheral edema and because she has a generous IVC on her ultrasound I am going to decrease her IV fluids. She is not required vasopressors at this time. I have asked nursing to insert a Lopez catheter so we can monitor renal function. (2) Pneumonia: Status: Suspected Assessment and plan: Although she was given a preliminary diagnosis of pneumonia based on the x-ray interpretation of bilateral interstitial and alveolar groundglass changes clinically she is not behaving like a pneumonia. She is not hypoxemic and she is not dyspneic and has no cough. I think she has pulmonary hypertension and may have some chronic diastolic heart failure. I did not appreciate significant change on her current chest x-ray over the that performed in March 2019. Her COVID-19 test is pending and when out today. Qualifiers: Pneumonia type: due to unspecified organism Laterality: bilateral Lung location: unspecified part of lung Qualified Code(s): J18.9 - Pneumonia, unspecified organism (3) Cirrhosis: Status: Chronic Assessment and plan: Presumably her cirrhosis is secondary to fatty liver from her diabetes mellitus and her obesity. Bilirubin is elevated 4.6 while her transaminases are only minimally elevated. Ferritin level is within normal limits. For now we will just monitor her liver enzymes while I try to obtain more information as to her previous work-up of her cirrhosis. Qualifiers: Hepatic cirrhosis type: other cirrhosis Qualified Code(s): K74.69 - Other cirrhosis of liver (4) Diabetes mellitus: Status: Chronic Assessment and plan: Patient previously been on insulin but was taken off her insulin because and then improved glycohemoglobin A1c that was less than 5%. At this time we will continue to monitor blood sugars before meals and at bedtime and cover her with sliding scale insulin. Qualifiers: Diabetes mellitus type: type 2 Diabetes mellitus senior care insulin use: without senior care use Diabetes mellitus complication status: without complication Qualified Code(s): E11.9 - Type 2 diabetes mellitus without complications (5) Complicated UTI (urinary tract infection): Status: Suspected Assessment and plan: Patient has no flank pain and no dysuria. Urinalysis is remarkable for moderate amount of blood and many bacteria although the nitrate level was negative and her leukocyte esterase was negative. I will await the results of her urine culture and finalization of her blood cultures. If the UTI is confirmed that I would consider getting a renal ultrasound. I attempted [id number] ultrasound of her kidneys was able to visualize her kidneys and did not see any stones and no hydronephrosis. (6) DVT prophylaxis: Status: Acute Assessment and plan: Patient was placed on subcutaneous heparin. She does have a low platelet count secondary to her chronic liver disease. I think as long as her platelet count is above 50,000 we will continue on unfractionated subcutaneous heparin. She has a remote history of GI bleed from esophageal varices and therefore I do not want to put her on a long-acting anticoagulant for DVT prophylaxis. Subjective Subjective Interval history since last seen: 65-year-old morbidly obese female with history of type 2 diabetes mellitus formerly on insulin who is been taken off of her insulin because of glucose being well controlled with A1c in the 4-5 range. She has hepatic cirrhosis presumably secondary to fatty liver. She is a nondrinker of any alcohol. She does have a remote history of esophageal varices and GI bleeding as well as a history of cervical DJD for which she had previous cervical spine fusion. Patient presented last night with acute fever chills including rigors and nausea without vomiting. She denies abdominal pain or shortness of breath or chest pain. She denies any exposure to patients with COVID-19. She denies any recent loss of taste or smell. She has no cough and no dyspnea. She presented to the emergency department with septic picture including tachycardia and hypotension along with a lactic acidosis and a leukocytosis. This morning she shows signs of acute renal insufficiency with a rising creatinine from 0.8-1.18. She had elevated procalcitonin level and elevated d- dimer last night with a procalcitonin level of 7.6 and a d-dimer of 1300. This morning her blood cultures are coming back positive for gram-positive cocci. Her urinalysis last night showed moderate amount of bacteria but was negative for nitrites or leuk leukocyte esterase but a moderate amount of RBCs. Chest x- ray from last night was read as showing diffuse interstitial and alveolar bi lateral groundglass changes with no pleural effusions and no cardiomegaly. I reviewed her chest x-ray and compared it to one from March 2019 in which was read as showing cardiomegaly and increased bilateral interstitial edema consistent with CHF. Also reviewed her previous CT scan from March 2019 and did not appreciate groundglass changes. Nasopharyngeal swab was obtained for COVID-19 is pending at this time. Patient was started on empiric antibiotics for sepsis including Zosyn and vancomycin. In light of her gram-positive cocci growing in her blood cultures I will continue her on her current antibiotic regimen pending identification and sensitivity results. Exam Narrative Exam Narrative: Morbidly obese female who is pleasant alert and oriented person place time circumstance. She is very cooperative. HEENT is remarkable for slight scleral icterus. Skin has of bronze jaundice coloration to it. Neck is supple difficult to appreciate JVD. Lungs are clear to auscultation Heart is regular with a soft grade 2 to grade 3/6 systolic murmur best heard at the apex but also heard along left lower sternal border. No thrill or heave. Abdomen is obese soft nontender nondistended normal active bowel sounds. Lower extremities with 2+ pedal and ankle edema. She has chronic venous stasis skin changes over the pretibial and ankle surfaces. Skin over her toes is somewhat macerated with some cracking of the skin between the toes. Objective Objective Clinical Data: Abnormal lab results 02/14/20 02/14/20 02/14/20 Range/Units 21:30 21:35 21:35 WBC (4.4-10.8) k/cumm RBC (4.00-5.20) m/cumm Hct (36.0-46.0) % MCV (80-95) fL MCH (27.0-33.0) pg RDW (11.7-14.6) % Plt Count (130-400) x1000/uL Absolute Neutrophils (1.2-6.7) k/cumm Absolute Lymphocytes (1.2-3.4) k/cumm Absolute Monocytes (0.11-0.7) k/cumm PT (9.3-11.0) sec INR (0.9-1.1) D-Dimer 1320 H (<500) ng/mlFEU BUN (7-18) mg/dL Creatinine (0.55-1.02) mg/dL Glucose 121 H (74-106) mg/dL Lactate 2.6 H* (0.6-1.4) mmol/L Calcium (8.5-10.1) mg/dL Magnesium 1.5 L (1.8-2.4) mg/dL Total Bilirubin 5.0 H (0.2-1.0) mg/dL AST 79 H (15-37) U/L Alkaline Phosphatase 203 H (46-116) U/L C-Reactive Protein (0.0-0.3) mg/dL NT-Pro-B Natriuret Pep (<300) pg/mL Total Protein (6.4-8.2) g/dL Albumin 2.7 L (3.4-5.0) g/dL Urine Protein (Negative) mg/dL Urine Ketones (Negative) mg/dL Urine Blood (Negative) Urine Bilirubin (Negative) Urine Urobilinogen (Up TO 0.2) EU/dL Urine RBC (0-2) HPF 02/14/20 02/14/20 02/14/20 Range/Units 21:35 21:45 23:30 WBC 12.07 H (4.4-10.8) k/cumm RBC (4.00-5.20) m/cumm Hct (36.0-46.0) % MCV 95.1 H (80-95) fL MCH 33.3 H (27.0-33.0) pg RDW (11.7-14.6) % Plt Count 84 L (130-400) x1000/uL Absolute Neutrophils 10.45 H (1.2-6.7) k/cumm Absolute Lymphocytes 0.68 L (1.2-3.4) k/cumm Absolute Monocytes 0.78 H (0.11-0.7) k/cumm PT (9.3-11.0) sec INR (0.9-1.1) D-Dimer (<500) ng/mlFEU BUN (7-18) mg/dL Creatinine (0.55-1.02) mg/dL Glucose (74-106) mg/dL Lactate (0.6-1.4) mmol/L Calcium (8.5-10.1) mg/dL Magnesium (1.8-2.4) mg/dL Total Bilirubin (0.2-1.0) mg/dL AST (15-37) U/L Alkaline Phosphatase (46-116) U/L C-Reactive Protein 2.33 H (0.0-0.3) mg/dL NT-Pro-B Natriuret Pep (<300) pg/mL Total Protein (6.4-8.2) g/dL Albumin (3.4-5.0) g/dL Urine Protein 100 H (Negative) mg/dL Urine Ketones 15 H (Negative) mg/dL Urine Blood Large H (Negative) Urine Bilirubin Moderate H (Negative) Urine Urobilinogen 1.0 H (Up TO 0.2) EU/dL Urine RBC >50 H (0-2) HPF 02/15/20 02/15/20 02/15/20 Range/Units 06:30 06:30 06:30 WBC (4.4-10.8) k/cumm RBC (4.00-5.20) m/cumm Hct (36.0-46.0) % MCV (80-95) fL MCH (27.0-33.0) pg RDW (11.7-14.6) % Plt Count (130-400) x1000/uL Absolute Neutrophils (1.2-6.7) k/cumm Absolute Lymphocytes (1.2-3.4) k/cumm Absolute Monocytes (0.11-0.7) k/cumm PT 12.8 H (9.3-11.0) sec INR 1.3 H (0.9-1.1) D-Dimer (<500) ng/mlFEU BUN (7-18) mg/dL Creatinine (0.55-1.02) mg/dL Glucose (74-106) mg/dL Lactate 2.3 H* (0.6-1.4) mmol/L Calcium (8.5-10.1) mg/dL Magnesium 1.5 L (1.8-2.4) mg/dL Total Bilirubin (0.2-1.0) mg/dL AST (15-37) U/L Alkaline Phosphatase (46-116) U/L C-Reactive Protein (0.0-0.3) mg/dL NT-Pro-B Natriuret Pep (<300) pg/mL Total Protein (6.4-8.2) g/dL Albumin (3.4-5.0) g/dL Urine Protein (Negative) mg/dL Urine Ketones (Negative) mg/dL Urine Blood (Negative) Urine Bilirubin (Negative) Urine Urobilinogen (Up TO 0.2) EU/dL Urine RBC (0-2) HPF 02/15/20 02/15/20 02/15/20 Range/Units 06:30 06:30 06:30 WBC 15.77 H D (4.4-10.8) k/cumm RBC 3.60 L (4.00-5.20) m/cumm Hct 35.0 L (36.0-46.0) % MCV 97.2 H (80-95) fL MCH 33.3 H (27.0-33.0) pg RDW 14.7 H (11.7-14.6) % Plt Count 75 L (130-400) x1000/uL Absolute Neutrophils (1.2-6.7) k/cumm Absolute Lymphocytes (1.2-3.4) k/cumm Absolute Monocytes (0.11-0.7) k/cumm PT (9.3-11.0) sec INR (0.9-1.1) D-Dimer (<500) ng/mlFEU BUN 23 H (7-18) mg/dL Creatinine 1.18 H (0.55-1.02) mg/dL Glucose 119 H (74-106) mg/dL Lactate (0.6-1.4) mmol/L Calcium 7.8 L (8.5-10.1) mg/dL Magnesium (1.8-2.4) mg/dL Total Bilirubin 4.6 H (0.2-1.0) mg/dL AST 63 H (15-37) U/L Alkaline Phosphatase 143 H (46-116) U/L C-Reactive Protein (0.0-0.3) mg/dL NT-Pro-B Natriuret Pep 1039 H (<300) pg/mL Total Protein 5.4 L (6.4-8.2) g/dL Albumin 2.1 L (3.4-5.0) g/dL Urine Protein (Negative) mg/dL Urine Ketones (Negative) mg/dL Urine Blood (Negative) Urine Bilirubin (Negative) Urine Urobilinogen (Up TO 0.2) EU/dL Urine RBC (0-2) HPF Vital Signs Temperature 36.8 C 02/15/20 08:15 Temperature Source Temporal Artery Scan 02/15/20 08:15 Pulse 81 02/15/20 09:01 Pulse 78 02/15/20 09:30 Respiratory Rate 21 02/15/20 09:30 Respiratory Effort Non-Labored 02/15/20 08:15 Respiratory Depth Normal 02/15/20 08:15 Respiratory Pattern Normal 02/15/20 08:15 Blood Pressure 118/72 02/15/20 09:01 Blood Pressure Mean 83 02/15/20 09:01 Blood Pressure Position Supine 02/15/20 01:25 Pulse Oximetry 97 02/15/20 09:30 Oxygen Delivery Method Room Air 02/15/20 08:30 Oxygen Flow Rate 0 02/15/20 08:30 Pain Level 0 02/15/20 08:33 Intake & Output 02/14/20 02/14/20 02/15/20 11:59 23:59 11:59 Intake Total 2109 Output Total 100 / 100 Balance 2009 Weight 106.141 kg 111.3 kg Intake: IV 0 / 1710 Oral 400 / 400 Output: Urine 100 / 100 Other: Urine Color Brown Urine Appearance Hematuria Comment Pt has not voided this AM and states she does not feel the need to at this time Voiding Methods Bedside Commode Laboratory Results WBC 15.77 k/cumm (4.4-10.8) H D 02/15/20 06:30 RBC 3.60 m/cumm (4.00-5.20) L 02/15/20 06:30 Hgb 12.0 g/dL (12.0-15.5) 02/15/20 06:30 Hct 35.0 % (36.0-46.0) L 02/15/20 06:30 MCV 97.2 fL (80-95) H 02/15/20 06:30 MCH 33.3 pg (27.0-33.0) H 02/15/20 06:30 MCHC 34.3 g/dL (32.0-36.0) 02/15/20 06:30 RDW 14.7 % (11.7-14.6) H 02/15/20 06:30 Plt Count 75 x1000/uL (130-400) L 02/15/20 06:30 MPV 9.8 fL (8.0-11.0) 02/15/20 06:30 Immature Gran % 0.3 % 02/14/20 21:35 Neutrophils % 86.6 02/14/20 21:35 Lymphocytes % 5.6 02/14/20 21:35 Monocytes % 6.5 02/14/20 21:35 Eosinophils % 0.7 02/14/20 21:35 Basophils % 0.3 02/14/20 21:35 Absolute Neutrophils 10.45 k/cumm (1.2-6.7) H 02/14/20 21:35 Absolute Lymphocytes 0.68 k/cumm (1.2-3.4) L 02/14/20 21:35 Absolute Monocytes 0.78 k/cumm (0.11-0.7) H 02/14/20 21:35 Absolute Eosinophils 0.08 k/cumm (0.0-0.7) 02/14/20 21:35 Absolute Basophils 0.04 k/cumm (0.0-0.2) 02/14/20 21:35 Differential Comment Agrees w/ instrument 02/14/20 21:35 RBC Morphology Normal 02/14/20 21:35 PT 12.8 sec (9.3-11.0) H 02/15/20 06:30 INR 1.3 (0.9-1.1) H 02/15/20 06:30 D-Dimer Cancelled 02/14/20 23:30 Sodium 138 mmol/L (136-145) 02/15/20 06:30 Potassium 3.8 mmol/L (3.5-5.1) 02/15/20 06:30 Chloride 105 mmol/L (98-107) 02/15/20 06:30 Carbon Dioxide 29.2 mmol/L (21.0-32.0) 02/15/20 06:30 Anion Gap 3.8 mmol/L (3-11) 02/15/20 06:30 BUN 23 mg/dL (7-18) H 02/15/20 06:30 Creatinine 1.18 mg/dL (0.55-1.02) H 02/15/20 06:30 Estimated GFR/1.73 m2 46.26 (mL/min/1.73m2) 02/15/20 06:30 Glucose 119 mg/dL (74-106) H 02/15/20 06:30 Lactate 2.3 mmol/L (0.6-1.4) H* 02/15/20 06:30 Calcium 7.8 mg/dL (8.5-10.1) L 02/15/20 06:30 Magnesium 1.5 mg/dL (1.8-2.4) L 02/15/20 06:30 Ferritin 231 ng/mL (8-252) 02/14/20 23:30 Total Bilirubin 4.6 mg/dL (0.2-1.0) H 02/15/20 06:30 AST 63 U/L (15-37) H 02/15/20 06:30 ALT 36 U/L (14-59) 02/15/20 06:30 Alkaline Phosphatase 143 U/L (46-116) H 02/15/20 06:30 C-Reactive Protein 2.33 mg/dL (0.0-0.3) H 02/14/20 23:30 NT-Pro-B Natriuret Pep 1039 pg/mL (<300) H 02/15/20 06:30 Total Protein 5.4 g/dL (6.4-8.2) L 02/15/20 06:30 Albumin 2.1 g/dL (3.4-5.0) L 02/15/20 06:30 Procalcitonin 7.6 ng/mL 02/14/20 23:30 TSH 0.53 uIU/mL (0.36-3.74) 02/15/20 06:30 Urine Color Brown (Yellow) 02/14/20 21:45 Urine Clarity Cloudy (Clear) 02/14/20 21:45 Urine pH 6.0 (5-8) 02/14/20 21:45 Ur Specific Webster 1.020 (1.005-1.025) 02/14/20 21:45 Urine Protein 100 mg/dL (Negative) H 02/14/20 21:45 Urine Ketones 15 mg/dL (Negative) H 02/14/20 21:45 Urine Blood Large (Negative) H 02/14/20 21:45 Urine Nitrite Negative (Negative) 02/14/20 21:45 Urine Bilirubin Moderate (Negative) H 02/14/20 21:45 Urine Urobilinogen 1.0 EU/dL (Up TO 0.2) H 02/14/20 21:45 Ur Leukocyte Esterase Negative (Negative) 02/14/20 21:45 Urine RBC >50 HPF (0-2) H 02/14/20 21:45 Urine WBC 5-10 HPF (0-5) 02/14/20 21:45 Ur Epithelial Cells Rare HPF (Negative) 02/14/20 21:45 Urine Crystals Negative HPF (Negative) 02/14/20 21:45 Urine Bacteria Moderate HPF (Negative) 02/14/20 21:45 Urine Casts Negative LPF (Negative) 02/14/20 21:45 Urine Mucus Trace (Negative) 02/14/20 21:45 Urine Other Few yeast (Negative) 02/14/20 21:45 Ur Culture Indicated? Yes 02/14/20 21:45 Urine Glucose Negative mg/dL (Negative) 02/14/20 21:45
[2020-02-15] MEDS: POTASSIUM CHLORIDE/0.9% NACL 1,000 ML 150 MEQ IV ×2 (12:47→18:11)
--- NOTE | 2020-02-15 13:41 | NUR.NOTE ---
[address] Rich if I should give the heparin as the patient's platelets were 75. He wanted to wait and see what he thought after he rounded on the patient. The patient was given heparin around 1330. I notified Dr. Rich this AM that I had not given the amlodipine yet and he agreed and placed a hold order on it as the patient's BP was low. Nursing Note:
[2020-02-15 14:22] LABS: COVID-19 RT-PCR UVMMC Result Negative (Negative)
[2020-02-15] MEDS: Insulin Aspart 300 UNITS/3 ML PEN SC ×3 (14:30→21:59)
[2020-02-15] MEDS: VANCOMYCIN 1,000 MG in Normal Saline 250 ML 250 MG IV (14:31)
[2020-02-16] VITALS (54 sets, daily range): BP systolic 96–166; BP diastolic 41–82; PULSE 75–113; RESP 16–33; TEMP 36.5–37.8; O2SAT 89–97
[2020-02-16] MEDS: Acetaminophen 325 MG TAB PO ×2 (00:36→15:59)
[2020-02-16] MEDS: PIPERACILLIN/TAZO 4.5 GM in Normal Saline 100 ML IVPB ×3 (00:36→12:03)
[2020-02-16] MEDS: Normal Saline Flush 10 ML SYR IVP ×5 (00:37→23:56)
[2020-02-16] MEDS: Heparin 5,000 UNITS/ML VIAL 5000 UNITS SC (02:48)
[2020-02-16] MEDS: VANCOMYCIN 1,000 MG in Normal Saline 250 ML 250 MG IV (03:05)
[2020-02-16 04:20] LABS: Lactate 1.6 mmol/L (0.6-1.4)
[2020-02-16 04:38] LABS: ALT 47 U/L (14-59); AST 87 U/L (15-37); Albumin 1.8 g/dL (3.4-5.0); Alkaline Phosphatase 122 U/L (46-116); Anion Gap 2.2 mmol/L (3-11); BUN 29 mg/dL (7-18); Bilirubin, Total 3.1 mg/dL (0.2-1.0); CO2 27.8 mmol/L (21.0-32.0); CREATININE 1.11 mg/dL (0.55-1.02); Calcium 7.3 mg/dL (8.5-10.1); Chloride 105 mmol/L (98-107); Estimated GFR 49.64 (mL/min/1.73m2); Glucose 125 mg/dL (74-106); Potassium 3.8 mmol/L (3.5-5.1); Sodium 135 mmol/L (136-145); Total Protein 4.9 g/dL (6.4-8.2)
[2020-02-16] MEDS: POTASSIUM CHLORIDE/0.9% NACL 1,000 ML 150 MEQ IV (05:00)
[2020-02-16 05:37] LABS: Magnesium 2.3 mg/dL (1.8-2.4)
[2020-02-16 07:31] LABS: Abs Immature Grans 0.06 k/cumm (0.0-0.09); HCT 31.8 % (36.0-46.0); HGB 10.8 g/dL (12.0-15.5); Mean Corpuscular Hemoglobin 33.1 pg (27.0-33.0); Mean Corpuscular Volume 97.5 fL (80-95); Mean Platelet Volume 9.8 fL (8.0-11.0); RBC 3.26 m/cumm (4.00-5.20); RBC Distribution Width 14.7 % (11.7-14.6); White Blood Cell Count 10.21 k/cumm (4.4-10.8)
[2020-02-16] MEDS: Pregabalin 100 MG CAP PO ×3 (07:45→20:41)
[2020-02-16 07:46] LABS: Absolute Neutrophil Count 8.17 k/cumm (1.2-6.7); Platelet Count 71 x1000/uL (130-400)
[2020-02-16] MEDS: Rifaximin 550 MG TAB PO ×2 (07:46→20:40)
[2020-02-16] MEDS: Lactulose 20 GM/30 ML CUP 10 GM PO ×3 (07:46→20:41)
[2020-02-16] MEDS: Sucralfate 1 GM TAB PO ×4 (07:46→21:59)
[2020-02-16] MEDS: Ferrous Sulfate 325 MG TAB PO (07:46)
[2020-02-16] MEDS: Pantoprazole 40 MG TABCR PO (07:46)
[2020-02-16 07:47] LABS: Absolute Eosinophil Count 0.41 k/cumm (0.0-0.7); Absolute Lymphocyte Count 1.02 k/cumm (1.2-3.4); Absolute Monocyte Count 0.51 k/cumm (0.11-0.7); Atypical Lymphocytes % 4; Diff Comment Manual Differential; Polychromasia Present
--- NOTE | 2020-02-16 07:48 | PGE_ITS ---
Date of Service Date of service: 02/16/20 Time of Service: 07:49 Assessment and Plan Assessment and plan (1) Sepsis syndrome: Status: Acute Assessment and plan: Patient presented with sepsis with hypotension and tachycardia as well as elevated blood lactate and procalcitonin levels. She is been responding to antibiotics and IV fluid resuscitation and did not require vasopressor support. Present time her sepsis picture seems to be resolving although she has an ongoing gram-positive bacteremia and possible endocarditis. She remains on Zosyn and vancomycin. Final identification sensitivity of her blood cultures is pending at this time. We will continue supportive care with antibiotics however at this point she appears to be volume overloaded and require some diuretics. I will get an echocardiogram in the morning and repeat her blood cultures tomorrow morning to see if her bacteremia is clearing with current antibiotic treatment. (2) Gram-positive bacteremia: Status: Acute Assessment and plan: Unclear source but likely from the skin. She has maceration of her toes although no open ulcers that I could find. She has aortic stenosis and I am concerned that she may have seeded her aortic valve. We will get an echocardiogram in the morning and modify her antibiotics based on her blood culture sensitivities. (3) Aortic stenosis, severe: Status: Chronic Assessment and plan: As above (4) Complicated UTI (urinary tract infection): Status: Suspected Assessment and plan: Urine culture is pending at this time but is unlikely the source of her bacteremia. I will continue the Zosyn along with the vancomycin pending the results of her urine culture and final identification and sensitivity of her blood cultures. (5) Cirrhosis: Status: Chronic Assessment and plan: Patient has a history of cirrhosis and portal hypertension as well as previous TIPS procedure to control her portal hypertension and variceal bleeding in the past. She currently remains on a PPI and Carafate for GI protection. Her hemoglobin dropped from 12 g to 10.8 g. I think this is primarily delusional. Nurses report that her stool was negative for occult blood. Qualifiers: Hepatic cirrhosis type: other cirrhosis Qualified Code(s): K74.69 - Other cirrhosis of liver (6) Iron deficiency anemia: Status: Acute Assessment and plan: I will check her iron studies and will monitor her blood count. I have discontinued her IV fluids and actually will be given her IV Lasix today. If her hemoglobin continues to drop then we have to be suspicious of some occult GI bleeding possibly from her varices. At this time she is showing no overt signs of GI bleeding such as melena or hematochezia or hematemesis. Per nursing stool was negative for occult blood. Qualifiers: Iron deficiency anemia type: unspecified iron deficiency Qualified Code(s): D50.9 - Iron deficiency anemia, unspecified (7) Fluid overload: Status: Acute Assessment and plan: Patient has fluid overload secondary to aggressive IV fluid resuscitation in the setting of sepsis. This time her sepsis seems to be resolving and she is responding to the antibiotics. She is not requiring any vasopressors and she is able to eat and drink adequately therefore I am discontinuing IV fluids and give her some Lasix to get her to a euvolemic state. She is 6 kg above her admission weight and she is 5.6 L positive. Qualifiers: Hypervolemia type: other Qualified Code(s): E87.79 - Other fluid overload (8) DVT prophylaxis: Status: Acute Assessment and plan: DC heparin continue with SCDs and JONNY artise. Subjective Subjective Interval history since last seen: No acute complaints overnight. She denies any dizziness or lightheadedness. Only concern is that she is having some increased edema in her hands as well as her feet. She has gained 6 kg since admission and her net intake/output is positive by 5.6 L. I discontinued her IV fluids and will give her couple doses of Lasix today along with potassium and magnesium s upplementation. Her COVID-19 nasopharyngeal swab was negative and influenza was negative. However blood cultures from admission are positive 2 out of 2 sets for gram-positive cocci. Final identification and sensitivity are pending. Given her history of aortic stenosis I am concerned that she has an endocarditis. She is currently on vancomycin and Zosyn and wants have a final identification of all narrow her antibiotic spectrum to target her blood cultures. We will get an echocardiogram tomorrow morning looking for any vegetations. I will repeat her blood cultures tomorrow to see if she starting to clear her bacteremia. Exam Narrative Exam Narrative: Morbidly obese female lying in bed currently not wearing any oxygen in no respiratory distress. Lungs reveal bibasilar rales no rhonchi or wheezes. Heart is regular rate and rhythm with a loud crescendo decrescendo murmur over the aortic outflow tract grade 4/6. This is heard throughout the precordium. Abdomen is obese soft and nontender. Extremities with 2+ edema of her feet and ankles and pretibial surfaces as well as of her hands. Objective Objective Clinical Data: Abnormal lab results 02/14/20 02/15/20 02/16/20 Range/Units 21:30 06:30 04:00 RBC (4.00-5.20) m/cumm Hgb (12.0-15.5) g/dL Hct (36.0-46.0) % MCV (80-95) fL MCH (27.0-33.0) pg RDW (11.7-14.6) % Plt Count (130-400) x1000/uL Absolute Neutrophils (1.2-6.7) k/cumm Absolute Lymphocytes (1.2-3.4) k/cumm D-Dimer 1320 H (<500) ng/mlFEU Sodium 135 L (136-145) mmol/L Anion Gap 2.2 L (3-11) mmol/L BUN 29 H (7-18) mg/dL Creatinine 1.11 H (0.55-1.02) mg/dL Glucose 125 H (74-106) mg/dL Lactate (0.6-1.4) mmol/L Calcium 7.3 L (8.5-10.1) mg/dL Total Bilirubin 3.1 H (0.2-1.0) mg/dL AST 87 H (15-37) U/L Alkaline Phosphatase 122 H (46-116) U/L NT-Pro-B Natriuret Pep 1039 H (<300) pg/mL Total Protein 4.9 L (6.4-8.2) g/dL Albumin 1.8 L (3.4-5.0) g/dL 02/16/20 02/16/20 Range/Units 04:00 07:18 RBC 3.26 L (4.00-5.20) m/cumm Hgb 10.8 L (12.0-15.5) g/dL Hct 31.8 L (36.0-46.0) % MCV 97.5 H (80-95) fL MCH 33.1 H (27.0-33.0) pg RDW 14.7 H (11.7-14.6) % Plt Count 71 L (130-400) x1000/uL Absolute Neutrophils 8.17 H (1.2-6.7) k/cumm Absolute Lymphocytes 1.02 L (1.2-3.4) k/cumm D-Dimer (<500) ng/mlFEU Sodium (136-145) mmol/L Anion Gap (3-11) mmol/L BUN (7-18) mg/dL Creatinine (0.55-1.02) mg/dL Glucose (74-106) mg/dL Lactate 1.6 H (0.6-1.4) mmol/L Calcium (8.5-10.1) mg/dL Total Bilirubin (0.2-1.0) mg/dL AST (15-37) U/L Alkaline Phosphatase (46-116) U/L NT-Pro-B Natriuret Pep (<300) pg/mL Total Protein (6.4-8.2) g/dL Albumin (3.4-5.0) g/dL Vital Signs Temperature 37.5 C 02/16/20 03:39 Temperature Source Tympanic 02/16/20 03:39 Pulse 75 02/16/20 05:32 Pulse 77 02/16/20 06:30 Respiratory Rate 18 02/16/20 06:30 Respiratory Effort Non-Labored 02/16/20 03:39 Respiratory Depth Normal 02/16/20 03:39 Respiratory Pattern Normal 02/16/20 03:39 Blood Pressure 98/50 L 02/16/20 06:08 Blood Pressure Mean 61 02/16/20 06:08 Blood Pressure Position Supine 02/16/20 00:05 Pulse Oximetry 95 02/16/20 06:30 Oxygen Delivery Method Nasal Cannula 02/16/20 03:39 Oxygen Flow Rate 1 02/16/20 03:39 Pain Level 0 02/16/20 03:39 Intake & Output 02/15/20 02/15/20 02/16/20 11:59 23:59 11:59 Intake Total 2110 / 5612.0 3502.0 / 5612.0 1430 / 1430 Output Total 100 / 650 550 / 650 750 / 750 Balance 2009 4962.0 2952.0 / 4962.0 680 / 680 Weight 111.3 kg 112.2 kg Intake: IV 1710 / 4700.0 2990.0 / 4700.0 830 / 830 Oral 400 / 912 512 / 912 600 / 600 Output: Urine 100 / 650 550 / 650 750 / 750 Other: Urine Color Brown Light Jenna Yellow Urine Appearance Hematuria Clear Clear Urine Odor Normal Comment Pt has not voided this AM and states she does not feel the need to at this time mixed with stool Urine is heme positive; she has no c/o of burning,frequency, or flank pain Stool Occult Blood Negative Negative Stool Size Large Moderate Stool Characteristics Soft Soft Brown Brown Voiding Methods Bedside Commode Bedside Commode Laboratory Results WBC 10.21 k/cumm (4.4-10.8) D 02/16/20 07:18 RBC 3.26 m/cumm (4.00-5.20) L 02/16/20 07:18 Hgb 10.8 g/dL (12.0-15.5) L 02/16/20 07:18 Hct 31.8 % (36.0-46.0) L 02/16/20 07:18 MCV 97.5 fL (80-95) H 02/16/20 07:18 MCH 33.1 pg (27.0-33.0) H 02/16/20 07:18 MCHC 34.0 g/dL (32.0-36.0) 02/16/20 07:18 RDW 14.7 % (11.7-14.6) H 02/16/20 07:18 Plt Count 71 x1000/uL (130-400) L 02/16/20 07:18 MPV 9.8 fL (8.0-11.0) 02/16/20 07:18 Immature Gran % See Differential 02/16/20 07:18 Neutrophils % 70.0 02/16/20 07:18 Band Neutrophils % 10.0 % 02/16/20 07:18 Lymphocytes % 6.0 02/16/20 07:18 Atypical Lymphs % 4 02/16/20 07:18 Monocytes % 5.0 02/16/20 07:18 Eosinophils % 4.0 02/16/20 07:18 Basophils % 0.0 02/16/20 07:18 Metamyelocytes % 1.0 % 02/16/20 07:18 Myelocytes % Cancelled 02/16/20 06:37 Promyelocytes % Cancelled 02/16/20 06:37 Absolute Neutrophils 8.17 k/cumm (1.2-6.7) H 02/16/20 07:18 Absolute Lymphocytes 1.02 k/cumm (1.2-3.4) L 02/16/20 07:18 Absolute Monocytes 0.51 k/cumm (0.11-0.7) 02/16/20 07:18 Absolute Eosinophils 0.41 k/cumm (0.0-0.7) 02/16/20 07:18 Absolute Basophils 0.00 k/cumm (0.0-0.2) 02/16/20 07:18 Nucleated RBCs Cancelled 02/16/20 06:37 Differential Comment Manual differential 02/16/20 07:18 Other Cell Type Cancelled 02/16/20 06:37 RBC Morphology See below 02/16/20 07:18 Polychromasia Present 02/16/20 07:18 Hypochromasia Cancelled 02/16/20 06:37 Poikilocytosis Cancelled 02/16/20 06:37 Basophilic Stippling Cancelled 02/16/20 06:37 Anisocytosis Cancelled 02/16/20 06:37 Microcytosis Cancelled 02/16/20 06:37 Macrocytosis Cancelled 02/16/20 06:37 Spherocytes Cancelled 02/16/20 06:37 Target Cells Cancelled 02/16/20 06:37 Tear Drop Cells Cancelled 02/16/20 06:37 Ovalocytes Cancelled 02/16/20 06:37 Stomatocytes Cancelled 02/16/20 06:37 [place] Bodies Cancelled 02/16/20 06:37 [place] Cells Cancelled 02/16/20 06:37 Acanthocytes (Spur) Cancelled 02/16/20 06:37 Schistocytes Cancelled 02/16/20 06:37 PT 12.8 sec (9.3-11.0) H 02/15/20 06:30 INR 1.3 (0.9-1.1) H 02/15/20 06:30 D-Dimer Cancelled 02/14/20 23:30 Sodium 135 mmol/L (136-145) L 02/16/20 04:00 Potassium 3.8 mmol/L (3.5-5.1) 02/16/20 04:00 Chloride 105 mmol/L (98-107) 02/16/20 04:00 Carbon Dioxide 27.8 mmol/L (21.0-32.0) 02/16/20 04:00 Anion Gap 2.2 mmol/L (3-11) L 02/16/20 04:00 BUN 29 mg/dL (7-18) H 02/16/20 04:00 Creatinine 1.11 mg/dL (0.55-1.02) H 02/16/20 04:00 Estimated GFR/1.73 m2 49.64 (mL/min/1.73m2) 02/16/20 04:00 Glucose 125 mg/dL (74-106) H 02/16/20 04:00 Lactate 1.6 mmol/L (0.6-1.4) H 02/16/20 04:00 Calcium 7.3 mg/dL (8.5-10.1) L 02/16/20 04:00 Magnesium 2.3 mg/dL (1.8-2.4) 02/16/20 04:00 Ferritin 231 ng/mL (8-252) 02/14/20 23:30 Total Bilirubin 3.1 mg/dL (0.2-1.0) H 02/16/20 04:00 AST 87 U/L (15-37) H 02/16/20 04:00 ALT 47 U/L (14-59) 02/16/20 04:00 Alkaline Phosphatase 122 U/L (46-116) H 02/16/20 04:00 C-Reactive Protein 2.33 mg/dL (0.0-0.3) H 02/14/20 23:30 NT-Pro-B Natriuret Pep 1039 pg/mL (<300) H 02/15/20 06:30 Total Protein 4.9 g/dL (6.4-8.2) L 02/16/20 04:00 Albumin 1.8 g/dL (3.4-5.0) L 02/16/20 04:00 Procalcitonin 7.6 ng/mL 02/14/20 23:30 TSH 0.53 uIU/mL (0.36-3.74) 02/15/20 06:30 Urine Color Brown (Yellow) 02/14/20 21:45 Urine Clarity Cloudy (Clear) 02/14/20 21:45 Urine pH 6.0 (5-8) 02/14/20 21:45 Ur Specific [place] 1.020 (1.005-1.025) 02/14/20 21:45 Urine Protein 100 mg/dL (Negative) H 02/14/20 21:45 Urine Ketones 15 mg/dL (Negative) H 02/14/20 21:45 Urine Blood Large (Negative) H 02/14/20 21:45 Urine Nitrite Negative (Negative) 02/14/20 21:45 Urine Bilirubin Moderate (Negative) H 02/14/20 21:45 Urine Urobilinogen 1.0 EU/dL (Up TO 0.2) H 02/14/20 21:45 Ur Leukocyte Esterase Negative (Negative) 02/14/20 21:45 Urine RBC >50 HPF (0-2) H 02/14/20 21:45 Urine WBC 5-10 HPF (0-5) 02/14/20 21:45 Ur Epithelial Cells Rare HPF (Negative) 02/14/20 21:45 Urine Crystals Negative HPF (Negative) 02/14/20 21:45 Urine Bacteria Moderate HPF (Negative) 02/14/20 21:45 Urine Casts Negative LPF (Negative) 02/14/20 21:45 Urine Mucus Trace (Negative) 02/14/20 21:45 Urine Other Few yeast (Negative) 02/14/20 21:45 Ur Culture Indicated? Yes 02/14/20 21:45 Urine Glucose Negative mg/dL (Negative) 02/14/20 21:45 COVID-19 PCR Negative (Negative) 02/14/20 22:15 Nasopharyn COVID-19 PCR Not Applicable 02/14/20 22:15 [facility] 02/14/20 22:15
[2020-02-16] MEDS: Furosemide 40 MG/4 ML VIAL IVP ×2 (08:28→15:42)
[2020-02-16] MEDS: Potassium Chloride 10 MEQ CAPCR 20 MEQ PO ×3 (08:29→20:40)
--- NOTE | 2020-02-16 09:41 | CMPROGNOTE_ITS ---
Care Management Progress Note S/O: Mayra was lying in bed, shivering and working to breathe. She reported becoming short of breath when getting up to the bathroom and being offered O2 by her nurse, but refusing and now wishing she hadn't. CM called nurse, RNCC took O2 stats and began O2 with RN assigned. CM offered a warm blanket with Mayra accepted graciously. She reported no further needs at this time. Culture results positive for strep and ecoli, IV ABX modified per MD. Due to concern for endocarditis, ECHO order for tomorrow; 02/17/20 per MD. Mayra continues to be closely monitored but is stabilizing; transitioning down to M/S level of care per MD. CM continues to follow. A: 65 year old female admitted to [facility] P: Mayra will transition to M/S level of care today per MD. Blood and urine cultures positive for strep and ecoli, respectively. IV ABX will be modified and Mayra continues to be monitored. ECHO scheduled for tomorrow. Anticipate Mayra will return home when ready per MD, she will follow up with her PCP and transport via private vehicle with family.
[2020-02-16] MEDS: Nystatin OINT 15 GM TUBE TP ×3 (10:20→20:41)
[2020-02-16] MEDS: Magnesium Oxide 400 MG TAB PO ×2 (10:20→20:40)
[2020-02-16] MEDS: Nystatin POWDER 15 GM JAR TP ×3 (10:21→20:41)
[2020-02-16] MEDS: Insulin Aspart 300 UNITS/3 ML PEN SC ×3 (12:03→21:59)
[2020-02-16] MEDS: Ciprofloxacin 500 MG TAB PO (17:59)
[2020-02-17] VITALS (10 sets, daily range): BP systolic 107–153; BP diastolic 62–76; PULSE 62–97; RESP 17–22; TEMP 35.9–37.1; O2SAT 93–100
[2020-02-17] MEDS: Normal Saline Flush 10 ML SYR IVP ×5 (04:10→23:51)
[2020-02-17] MEDS: Ciprofloxacin 500 MG TAB PO ×2 (06:28→18:05)
--- NOTE | 2020-02-17 07:00 | DI.US_ITS ---
APPROVED REPORT EXAM: Comprehensive 2D, Doppler, and color-flow Echocardiogram Patient Location: In-Patient Room/Bed: 226 Core Analyst: Pricila Hahn RDCS (AE) Indications: Aortic Stenosis, Bacteremia Conclusion Mild concentric left ventricular hypertrophy with an estimated ejection fraction of 60 to 65%. Penny l wall motion. The left atrium is mildly dilated Right ventricle is borderline dilated right ventricular systolic function is normal The aortic valve is probably trileaflet and is calcified. There is severe aortic stenosis. The peak gradient is 58 mmHg, mean 35 mmHg with a calculated aortic valve area of 0.84 cm???. There is no ao rtic regurgitation Mitral annular calcification. Mild mitral regurgitation Tricuspid valve is structurally normal. There is mild tricuspid regurgitation. Estimated RVSP is 33 mmHg There are no valvular vegetations identified on this transthoracic echocardiogram Wall motion Left Ventricle The left ventricle is normal size. The left ventricular systolic function is normal. The left ventric ular ejection fraction is within the normal range. Mild concentric left ventricular hypertrophy. Ther e is normal LV segmental wall motion. Transmitral Doppler flow pattern suggests pseudonormalization. LVEF is 60-65%. Right Ventricle Right ventricle is borderline dilated. The right ventricular systolic function is normal. The RVSP is 33.5 mmHg. Atria Left atrium is mildly dilated. The right atrium size is normal. Interatrial septum not well visualize d. Aortic Valve Aortic valve is calcified. Severe aortic stenosis. Highest mean aortic valve gradient is 35.4mmHg. Pe ak aortic valve gradient is 57.8mmHg. Calculated AKIRA by the continuity equation is .84cm2. No aortic regurgitation is present. There is no aortic valvular vegetation. Mitral Valve Moderate mitral annular calcification. No evidence of mitral valve stenosis. Mild mitral regurgitatio n. There is no evidence of mitral valve vegetations. Tricuspid Valve The tricuspid valve is normal in structure. There is no tricuspid valve stenosis. Mild tricuspid regu rgitation. There is no tricuspid valve vegetations. Pulmonic Valve Pulmonic valve is not well visualized. There is no pulmonic valvular stenosis. There is no pulmonic v alvular regurgitation. Great Vessels The aortic root is normal in size. Ascending aorta is not well visualized. Aortic arch is not well vi sualized. Due to technically difficult subcostal imaging, the IVC could not be assessed. Pericardium The pericardium appears grossly normal. 2D Dimensions IVSD d PLAX 1.21 cm F: 0.6-1.0 LV Vol A2C d MOD 153.7 mL LVPW d PLAX 1.20 cm F: 0.6 - 1.0 LV Vol A4C d MOD 128.4 mL LVID d PLAX 4.72 cm F: 3.8 - 5.2 LA vol/ BSA A2C s A-L 32.6 mL/m2 LVDs 3.25 cm F: 2.2 - 3.5 LA vol/ BSA A4C s A-L 37.3 mL/m2 Ao Root d 2.79 cm F: 2.7 - 3.3 LA Vol/ BSA Biplane s A-L 35.3 mL/m2 RA Area A4C 15.55 cm2 LA Area A4C s MOD 23.20 cm2 RA Vol/ BSA A4C s A-L 20.5 mL/m2 LA Area A2C s MOD 21.94 cm2 LV EF Teichholz 58.4 % LV EF A4C MOD 50.1 % LVEF (Gee's) 53.52 % F: 54 - 74 LV EF A2C MOD 55.7 % LV Volume 105.57 mL F: 46 - 106 LV EF Biplane MOD 53.5 % LV Volume Index 50.51 mL/m2 F: 29 - 61 SV 76.44 mL LV Vol Biplane MOD 142.8 mL SV Index 36.56 mL/m2 FS 30.80 % M-Mode TAPSE 2.78 cm (M/F) >1.7 LV Diastology MV E' medial 0.084 (>0.07 m/s) E/A Ratio 1.7 LV E/e MED 18.65 (<14) MV E Vmax 1.57 (0.4-1.3 m/s) MV E' lateral 0.084 (>0.1 m/s) MV A Vmax 0.95 (0.4-1.3 m/s) LV E/e LAT 18.65 (<14) MV E/A Ratio 1.65 MV E/E' medial 18.67 MV E/E' lateral 18.67 Aortic Valve LVOT Area 2.66 cm2 AoV Area Vmax 1.54 cm2 LVOT Vmax 2.20 m/s AoV Area/ BSA (Vmax) 0.73 cm2/m2 LVOT Mean Kenn. 0.97 m/s AKIRA Mean Kenn. 0.92 cm2 LVOT Peak Grad 19.3 mmHg AKIRA Mean Kenn. Index 0.44 cm2/m2 LVOT Mean Grad 4.3 mmHg LVOT VTI 0.315 m LVOT Diam s 1.80 cm AoV Vmax 3.80 m/s Velocity Ratio 0.57 AoV Mean Kenn. 2.80 m/s AoV Peak Grad 57.8 mmHg LVOT SV 83.67 mL AoV Mean Grad 35.4 mmHg AoV VTI 0.999 m AoV Area VTI 0.84 cm2 AoV Area/ BSA (VTI) 0.40 cm/m2 Mitral Valve MV DT 174 (160-240 msec) MR Vmax 5.08 m/s MV PHT 50 msec MR VTI 1.357 m MV Area PHT 4.36 cm2 MR Peak Grad 103.4 mmHg MR Mean Grad 73.3 mmHg MR PISA Radius 0.48 cm MR EROA 0.10 cm2 MR Aliasing Velocity 0.35 m/s MR PISA 1.47 cm2 Pulmonary Valve PV Vmax 1.74 (0.5-1.5 m/s) RVOT Peak Gr. 5.08 mmHg PV Peak Grad 12.1 mmHg RVOT Mean Gr. 2.40 mmHg PV Mean Grad 6.1 mmHg RVOT VTI 0.203 m PV VTI 0.328 m RVOT Vmax 1.13 m/s Tricuspid Valve TR Peak Grad 30.5 mmHg TR Vmax 2.76 m/s RA Pressure 3.00 mmHg RVSP (TR) 33.5 mmHg
[2020-02-17 07:46] LABS: Abs Immature Grans 0.03 k/cumm (0.0-0.09); Absolute Basophil Count 0.04 k/cumm (0.0-0.2); Absolute Eosinophil Count 0.39 k/cumm (0.0-0.7); Absolute Lymphocyte Count 1.25 k/cumm (1.2-3.4); Absolute Monocyte Count 0.73 k/cumm (0.11-0.7); Absolute Neutrophil Count 5.14 k/cumm (1.2-6.7); Basophils % 0.5; Eosinophils % 5.1; HCT 32.5 % (36.0-46.0); HGB 11.1 g/dL (12.0-15.5); Immature Grans % 0.4 %; Lymphocytes % 16.5; Mean Corp. HGB Concentration 34.2 g/dL (32.0-36.0); Mean Corpuscular Hemoglobin 33.3 pg (27.0-33.0); Mean Corpuscular Volume 97.6 fL (80-95); Mean Platelet Volume 9.8 fL (8.0-11.0); Monocytes % 9.6; Neutrophils % 67.9; RBC 3.33 m/cumm (4.00-5.20); RBC Distribution Width 14.7 % (11.7-14.6); White Blood Cell Count 7.58 k/cumm (4.4-10.8)
[2020-02-17 07:55] LABS: C-Reactive Protein 8.48 mg/dL (0.0-0.3)
[2020-02-17] MEDS: Lactulose 20 GM/30 ML CUP 10 GM PO ×3 (07:56→20:29)
[2020-02-17] MEDS: Ferrous Sulfate 325 MG TAB PO (07:58)
[2020-02-17] MEDS: Pregabalin 100 MG CAP PO ×3 (07:58→20:29)
[2020-02-17] MEDS: Pantoprazole 40 MG TABCR PO (07:58)
[2020-02-17] MEDS: Rifaximin 550 MG TAB PO ×2 (07:58→20:29)
[2020-02-17] MEDS: Sucralfate 1 GM TAB PO ×4 (07:58→22:01)
[2020-02-17 07:59] LABS: ALT 48 U/L (14-59); AST 77 U/L (15-37); Albumin 1.8 g/dL (3.4-5.0); Alkaline Phosphatase 106 U/L (46-116); Anion Gap 2.3 mmol/L (3-11); BUN 26 mg/dL (7-18); Bilirubin, Total 3.1 mg/dL (0.2-1.0); CO2 30.7 mmol/L (21.0-32.0); CREATININE 0.91 mg/dL (0.55-1.02); Calcium 7.7 mg/dL (8.5-10.1); Chloride 106 mmol/L (98-107); Glucose 106 mg/dL (74-106); Magnesium 1.9 mg/dL (1.8-2.4); Sodium 139 mmol/L (136-145)
[2020-02-17] MEDS: Nystatin OINT 15 GM TUBE TP ×3 (08:00→20:29)
[2020-02-17] MEDS: Nystatin POWDER 15 GM JAR TP ×3 (08:00→20:29)
[2020-02-17 08:07] LABS: Platelet Count 77 x1000/uL (130-400)
[2020-02-17 08:15] LABS: Procalcitonin 12.9 ng/mL
--- NOTE | 2020-02-17 08:19 | W.PM.PROGNOT ---
Date of Service Date of service: 02/17/20 Time of Service: 08:20 Assessment and Plan Assessment and plan (1) Bacteremia due to group B Streptococcus: Status: Acute (2) Aortic stenosis, severe: Status: Chronic Assessment and plan: continue oxacilline 2 gm IV q4h; check echocardiogram to evaluate for vegetations particularly in light of her severe A.S.; repeat her blood cultures until they become negative. Once repeat blood cultures are negative, then can place P.I.C.C. line for assisted antibiotics. (3) Complicated UTI (urinary tract infection): Status: Suspected Assessment and plan: Urine cultures growing E. coli. This is probably a simple cystitis however I will check a renal ultrasound to be sure there is no evidence for pyelonephritis although clinically she is not behaving like a pyelonephritis and that she has no flank pain. Fact that she is growing group B strep in her bloodstream and E. coli in her urine suggests that the source of her sepsis was not urinary (4) Cirrhosis: Status: Chronic Assessment and plan: Patient has portal hypertension history of gastric varices and previous GI bleeding and has had a TIPS procedure in the past. At this time were not giving her any DVT prophylaxis with heparin but just giving her mechanical prophylaxis with SCDs and teds and early ambulation. As far as her cirrhosis which is monitoring her LFTs and trying to achieve euvolemia Qualifiers: Hepatic cirrhosis type: other cirrhosis Qualified Code(s): K74.69 - Other cirrhosis of liver (5) Iron deficiency anemia: Status: Acute Assessment and plan: I will check her iron studies and will monitor her blood count. I have discontinued her IV fluids and actually will be given her IV Lasix today. If her hemoglobin continues to drop then we have to be suspicious of some occult GI bleeding possibly from her varices. At this time she is showing no overt signs of GI bleeding such as melena or hematochezia or hematemesis. Per nursing stool was negative for occult blood. Qualifiers: Iron deficiency anemia type: unspecified iron deficiency Qualified Code(s): D50.9 - Iron deficiency anemia, unspecified (6) Fluid overload: Status: Acute Assessment and plan: Patient diuresed 5400 mL yesterday and for the day yesterday she was net -2800 mL. Her cumulative balance this admission she is still +1500 mL. However she reportedly is still up 6 kg over her admission weight. Mariza continue with diuretics but I think she can switch to p.o. diuretics. I will resume her Lasix but increase her from once a day to twice a day and add low-dose spironolactone to her regimen. Qualifiers: Hypervolemia type: other Qualified Code(s): E87.79 - Other fluid overload (7) DVT prophylaxis: Status: Acute Assessment and plan: heparin Has been DC'd continue with SCDs and JONNY marsh. (8) Hepatic encephalopathy: Status: Chronic Assessment and plan: not currently experiencing any encephalopathy but is maintained on Rifaximin and lactulose. She has hx of TIPS procedure and prior variceal bleeding. We have continued her Rifaximin and lactulose. She ought to be on a nonspecific BB to prevent rebleeding. (9) Portal hypertension: Status: Suspected Assessment and plan: I will add low dose nadolol to her regimen and keep her off Norvasc (she has chronic bilateral pedal/leg edema and amlodipine is not helping in this regard). Will continue to monitor her BP and HR response. continue daily monitoring of bmp while titrating her diuretic therapy (10) Diabetes mellitus: Status: Chronic Assessment and plan: continue to monitor glucose AC/HS; per her home medications it appears that she was not on any diabetic agents although her home medication list shows that she has pen needles and One Touch Ultra Test strips. We have her on glucose monitoring AC/HS and sliding scale Novolog. I will check her A1c; if this is above 6.5% then it will confirm DM. Furthermore she ought to be on Actos for her CARTER. Qualifiers: Diabetes mellitus type: type 2 Diabetes mellitus continuous churn buttermaker insulin use: without assisted use Diabetes mellitus complication status: without complication Qualified Code(s): E11.9 - Type 2 diabetes mellitus without complications Subjective Subjective Interval history since last seen: Patient seen while she is sitting up at the bedside eating breakfast. She denies any acute complaints. No shortness of breath at rest but gets dyspneic with physical activity. No chest pain or dizziness no nausea or vomiting and no abdominal pain and no dysuria. I explained to the patient that she has an underlying urinary tract infection but also has a bloodstream infection and that we are growing 2 different organisms. She is currently on ciprofloxacin for E. coli UTI. More importantly she is on oxacillin 2 g every 4 hours for group B strep bacteremia. Possible source of infection that I can see is possibly from the skin on her feet. There is no open deep ulcerations but she has cracks in the skin between her toes with some maceration of skin. I will request a podiatry consult on her later today. Patient is anxious to return home explained to her that we need to be sure that the bacteremia has cleared so that we can place a long-term P.I.C.C. catheter. An echocardiogram is pending at this time. She is going to need 4 to 6 weeks of antibiotics for her beta-hemolytic strep bacteremia. Exam Narrative Exam Narrative: Morbidly obese female who is alert and oriented person place time circumstance. Sitting up at the bedside eating her breakfast. Lungs are clear anteriorly posteriorly she has bibasilar rales. Heart is regular rate and rhythm with a harsh grade 4/6 systolic murmur along the aortic outflow tract. Extremities her hand edema has improved overnight. Nursing staff is able to help her get her rings off last night. Feet still show 2+ pitting pedal and ankle edema Objective Objective Clinical Data: Abnormal lab results 02/17/20 02/17/20 02/17/20 Range/Units 07:20 07:20 07:20 RBC 3.33 L (4.00-5.20) m/cumm Hgb 11.1 L (12.0-15.5) g/dL Hct 32.5 L (36.0-46.0) % MCV 97.6 H (80-95) fL MCH 33.3 H (27.0-33.0) pg RDW 14.7 H (11.7-14.6) % Plt Count 77 L (130-400) x1000/uL Absolute Monocytes 0.73 H (0.11-0.7) k/cumm Anion Gap 2.3 L (3-11) mmol/L BUN 26 H (7-18) mg/dL Calcium 7.7 L (8.5-10.1) mg/dL Total Bilirubin 3.1 H (0.2-1.0) mg/dL AST 77 H (15-37) U/L C-Reactive Protein 8.48 H (0.0-0.3) mg/dL Total Protein 5.0 L (6.4-8.2) g/dL Albumin 1.8 L (3.4-5.0) g/dL Vital Signs Temperature 37 C 02/17/20 07:38 Temperature Source Tympanic 02/17/20 07:38 Pulse 82 02/17/20 07:38 Pulse Rhythm Regular 02/17/20 00:00 Pulse 81 02/16/20 09:30 Respiratory Rate 20 02/17/20 07:38 Respiratory Effort 02/17/20 00:00 Respiratory Depth Normal 02/17/20 00:00 Respiratory Pattern Normal 02/17/20 00:00 Blood Pressure 107/62 02/17/20 07:38 Blood Pressure Mean 61 02/16/20 09:07 Blood Pressure Position Supine 02/16/20 00:05 Pulse Oximetry 100 02/17/20 08:01 Oxygen Delivery Method Nasal Cannula 02/17/20 08:01 Oxygen Flow Rate 2 02/17/20 08:01 Pain Level 0 02/17/20 07:38 Intake & Output 02/16/20 02/16/20 02/17/20 11:59 23:59 11:59 Intake Total 2092.5 / 2582.5 490 / 2582.5 250 / 250 Output Total 2550 / 5400 2850 / 5400 850 / 850 Balance -457.5 / -2817.5 -2360 / -2817.5 -600 / -600 Weight 112.2 kg 112.5 kg Intake: IV 1242.5 / 1492.5 250 / 1492.5 100 / 100 Oral 850 / 1090 240 / 1090 150 / 150 Output: Urine 1950 / 4800 2850 / 4800 850 / 850 Stool 600 / 600 Other: Urine Color Yellow Yellow Yellow Straw Urine Appearance Clear Clear Clear Urine Odor Normal Normal Comment mixed with stool, amount approximated. Pt just received Lasix 40mg IVP in the last 30 min Stool Occult Blood Negative Stool Size Moderate Moderate Stool Characteristics Soft Liquid Formed Black Brown Green Voiding Methods Bedside Commode Bedside Commode Bedside Commode Laboratory Results WBC 7.58 k/cumm (4.4-10.8) 02/17/20 07:20 RBC 3.33 m/cumm (4.00-5.20) L 02/17/20 07:20 Hgb 11.1 g/dL (12.0-15.5) L 02/17/20 07:20 Hct 32.5 % (36.0-46.0) L 02/17/20 07:20 MCV 97.6 fL (80-95) H 02/17/20 07:20 MCH 33.3 pg (27.0-33.0) H 02/17/20 07:20 MCHC 34.2 g/dL (32.0-36.0) 02/17/20 07:20 RDW 14.7 % (11.7-14.6) H 02/17/20 07:20 Plt Count 77 x1000/uL (130-400) L 02/17/20 07:20 MPV 9.8 fL (8.0-11.0) 02/17/20 07:20 Immature Gran % 0.4 % 02/17/20 07:20 Neutrophils % 67.9 02/17/20 07:20 Band Neutrophils % 10.0 % 02/16/20 07:18 Lymphocytes % 16.5 02/17/20 07:20 Atypical Lymphs % 4 02/16/20 07:18 Monocytes % 9.6 02/17/20 07:20 Eosinophils % 5.1 02/17/20 07:20 Basophils % 0.5 02/17/20 07:20 Metamyelocytes % 1.0 % 02/16/20 07:18 Myelocytes % Cancelled 02/16/20 06:37 Promyelocytes % Cancelled 02/16/20 06:37 Absolute Neutrophils 5.14 k/cumm (1.2-6.7) 02/17/20 07:20 Absolute Lymphocytes 1.25 k/cumm (1.2-3.4) 02/17/20 07:20 Absolute Monocytes 0.73 k/cumm (0.11-0.7) H 02/17/20 07:20 Absolute Eosinophils 0.39 k/cumm (0.0-0.7) 02/17/20 07:20 Absolute Basophils 0.04 k/cumm (0.0-0.2) 02/17/20 07:20 Nucleated RBCs Cancelled 02/16/20 06:37 Differential Comment Manual differential 02/16/20 07:18 Other Cell Type Cancelled 02/16/20 06:37 RBC Morphology See below 02/16/20 07:18 Polychromasia Present 02/16/20 07:18 Hypochromasia Cancelled 02/16/20 06:37 Poikilocytosis Cancelled 02/16/20 06:37 Basophilic Stippling Cancelled 02/16/20 06:37 Anisocytosis Cancelled 02/16/20 06:37 Microcytosis Cancelled 02/16/20 06:37 Macrocytosis Cancelled 02/16/20 06:37 Spherocytes Cancelled 02/16/20 06:37 Target Cells Cancelled 02/16/20 06:37 Tear Drop Cells Cancelled 02/16/20 06:37 Ovalocytes Cancelled 02/16/20 06:37 Stomatocytes Cancelled 02/16/20 06:37 Frey-Nicollet Bodies Cancelled 02/16/20 06:37 Trent Cells Cancelled 02/16/20 06:37 Acanthocytes (Spur) Cancelled 02/16/20 06:37 Schistocytes Cancelled 02/16/20 06:37 PT 12.8 sec (9.3-11.0) H 02/15/20 06:30 INR 1.3 (0.9-1.1) H 02/15/20 06:30 D-Dimer Cancelled 02/14/20 23:30 Sodium 139 mmol/L (136-145) 02/17/20 07:20 Potassium 4.0 mmol/L (3.5-5.1) 02/17/20 07:20 Chloride 106 mmol/L (98-107) 02/17/20 07:20 Carbon Dioxide 30.7 mmol/L (21.0-32.0) 02/17/20 07:20 Anion Gap 2.3 mmol/L (3-11) L 02/17/20 07:20 BUN 26 mg/dL (7-18) H 02/17/20 07:20 Creatinine 0.91 mg/dL (0.55-1.02) 02/17/20 07:20 Estimated GFR/1.73 m2 >= 60.00 (mL/min/1.73m2) 02/17/20 07:20 Glucose 106 mg/dL (74-106) 02/17/20 07:20 Lactate 1.6 mmol/L (0.6-1.4) H 02/16/20 04:00 Calcium 7.7 mg/dL (8.5-10.1) L 02/17/20 07:20 Magnesium 1.9 mg/dL (1.8-2.4) 02/17/20 07:20 Ferritin 231 ng/mL (8-252) 02/14/20 23:30 Total Bilirubin 3.1 mg/dL (0.2-1.0) H 02/17/20 07:20 AST 77 U/L (15-37) H 02/17/20 07:20 ALT 48 U/L (14-59) 02/17/20 07:20 Alkaline Phosphatase 106 U/L (46-116) 02/17/20 07:20 C-Reactive Protein 8.48 mg/dL (0.0-0.3) H 02/17/20 07:20 NT-Pro-B Natriuret Pep 1039 pg/mL (<300) H 02/15/20 06:30 Total Protein 5.0 g/dL (6.4-8.2) L 02/17/20 07:20 Albumin 1.8 g/dL (3.4-5.0) L 02/17/20 07:20 Procalcitonin 12.9 ng/mL 02/17/20 07:20 TSH 0.53 uIU/mL (0.36-3.74) 02/15/20 06:30 Urine Color Brown (Yellow) 02/14/20 21:45 Urine Clarity Cloudy (Clear) 02/14/20 21:45 Urine pH 6.0 (5-8) 02/14/20 21:45 Ur Specific Deposit 1.020 (1.005-1.025) 02/14/20 21:45 Urine Protein 100 mg/dL (Negative) H 02/14/20 21:45 Urine Ketones 15 mg/dL (Negative) H 02/14/20 21:45 Urine Blood Large (Negative) H 02/14/20 21:45 Urine Nitrite Negative (Negative) 02/14/20 21:45 Urine Bilirubin Moderate (Negative) H 02/14/20 21:45 Urine Urobilinogen 1.0 EU/dL (Up TO 0.2) H 02/14/20 21:45 Ur Leukocyte Esterase Negative (Negative) 02/14/20 21:45 Urine RBC >50 HPF (0-2) H 02/14/20 21:45 Urine WBC 5-10 HPF (0-5) 02/14/20 21:45 Ur Epithelial Cells Rare HPF (Negative) 02/14/20 21:45 Urine Crystals Negative HPF (Negative) 02/14/20 21:45 Urine Bacteria Moderate HPF (Negative) 02/14/20 21:45 Urine Casts Negative LPF (Negative) 02/14/20 21:45 Urine Mucus Trace (Negative) 02/14/20 21:45 Urine Other Few yeast (Negative) 02/14/20 21:45 Ur Culture Indicated? Yes 02/14/20 21:45 Urine Glucose Negative mg/dL (Negative) 02/14/20 21:45 COVID-19 PCR Negative (Negative) 02/14/20 22:15 Nasopharyn COVID-19 PCR Not Applicable 02/14/20 22:15 Ref Test [facility] 02/14/20 22:15
[2020-02-17] MEDS: Magnesium Oxide 400 MG TAB PO ×2 (10:38→20:30)
[2020-02-17] MEDS: Nadolol 40 MG TAB PO (10:38)
[2020-02-17] MEDS: Spironolactone 50 MG TAB PO (10:39)
[2020-02-17] MEDS: Furosemide 40 MG TAB PO ×2 (10:39→15:58)
--- NOTE | 2020-02-17 11:57 | W.INDIABCONS ---
Date of service: 02/17/20 Time of Service: 11:57 Diabetes Inpatient Consult DESCRIPTION/ASSESSMENT: 65 year old female admitted with PNA, sepsis syndrome with HTN fluid overload, iron deficiency anemia and DM2 (no home DM meds). BMI 45 indicates morbid obesity. Labs indicate finger sticks ranging from 161-170 mg/dl, Lastest A1C 5.1% (09/20/2019), A1C pending. Has hx of elevated A1C couple of years ago indicating poorly controlled diabetes. Met with Mayra today, she states she takes her BS once daily in AM, does not take any meds and has had stable weight for years. Meds include FeS04. Following Diabetic Diet inhouse with 100% intake. Lives with her daughter who does most of the cooking. Explained benefits of taking more frequent checks and provided chart to assist her with food and BG checks. Nutritional needs include: 1935-3402 kcal, 55-65 g protein, 2400 ml fluid. INTERVENTION: Educated Mayra on optimal diet for diabetes management with emphasis on complex carbs, lean protein and plenty of non starchy vegetables. Provided her with literature- Diabetes Meal Guidelines and my contact information if has questions once d/c. Reviewed risks of non compliance with Dm diet and protocol to follow if has hypo or hyper glycemia. Mayra very motivated to change her diet and start daily walking routine. CDM from kitchen has been healing Mayra pack meals and achieve intake of 60-65 g CHO per meal. Plan Mayra will review literature provided, [facility] resources and will follow up with instructional writer for DM self management as needed Time Spent in Nutritional Counseling and Treatment: 30 min
[2020-02-17 12:44] LABS: Iron 51 ug/dL (50-170); Total Iron Binding Capacity 155 ug/dL (250-450); Transferrin Sat 33 % (15-50)
[2020-02-17 13:18] LABS: Ferritin 257 ng/mL (8-252); Folate 9.8 ng/mL (8.6-20.0); Vitamin B12 1309 pg/mL (193-986)
--- NOTE | 2020-02-17 13:48 | CHAPLAIN ---
Mayra was sitting up at on the edge of her bed when I visited. She was waiting washed up and had just returned from having an ECHO. Mayra said she's in touch with family by phone. I explained my role and offered support.
[2020-02-17] MEDS: Mylanta Suspension 30 ML CUP PO (15:59)
--- NOTE | 2020-02-17 16:52 | PDOC.CMPRO ---
Care Management Progress Note S/O: Mayra continues to be closely monitored at this time. GERRY faxed orders to More at [facility], who reported Mayra did have full coverage and may have a small out of pocket expense prior to secondary BC/BS covering 100%. Awaiting negative blood cultures and PICC placement. GERRY will connect with More again on Monday morning to confirm arrangements. GERRY continues to follow. A: 65 year old female admitted to [facility] P: Orders sent to [facility] for Oxycillin Q4 IV ABX to empirically treat endocarditis. Anticipate with negative blood cultures for 48 hours, PICC will be placed and coordination of [facility] ([facility]) and DME [facility] home infusion services coordination can be completed. Tentative discharge plan for , 02/20/20 at this time. Mayra will return home when ready per MD, she will follow up with her PCP and transport via private vehicle with family.
--- NOTE | 2020-02-17 17:05 | NUR.NOTE ---
Nursing Note: Per pt.'s and pt.'s daughter's request, this RN attempted to call the pt.'s daughter to provide her with an update regarding the pt. RN unable to get through to pt.'s daughter at this time. RN will try again later.
--- NOTE | 2020-02-17 18:37 | NUR.NOTE ---
Nursing Note: At 1830 on 02/17/20, this RN attempted to call the pt.'s daughter to give her an update regarding the pt. RN was able to get through to the pt.'s daughter and updated her regarding the pt. and the pt.'s plan of care.
[2020-02-18] VITALS (11 sets, daily range): BP systolic 116–145; BP diastolic 52–75; PULSE 56–68; RESP 17–20; TEMP 35.7–37.1; O2SAT 91–100
[2020-02-18] MEDS: Normal Saline Flush 10 ML SYR IVP ×8 (04:34→22:09)
[2020-02-18] MEDS: Ciprofloxacin 500 MG TAB PO ×2 (06:50→17:55)
--- NOTE | 2020-02-18 07:00 | DI.US_ITS ---
EXAM: US RENAL CLINICAL HISTORY: UTI TECHNIQUE: Ultrasound performed using standard protocol. COMPARISON: US US ECHOCARDIOGRAM from 02/17/2020 FINDINGS: Renal ultrasound was performed according to the usual protocol. The kidneys are normal in size and s hape. There is no evidence of hydronephrosis or nephrolithiasis. Right ureteral jet was visualized, left ureteral jet not seen. Pre and post void urinary bladder volume measurements are 160 cc and 0 cc respectively. IMPRESSION: Technically limited study, no evidence of urinary tract obstruction. DATA REPOSITORY:
[2020-02-18 07:05] LABS: Abs Immature Grans 0.04 k/cumm (0.0-0.09); Absolute Basophil Count 0.07 k/cumm (0.0-0.2); Absolute Eosinophil Count 0.38 k/cumm (0.0-0.7); Absolute Lymphocyte Count 1.19 k/cumm (1.2-3.4); Absolute Monocyte Count 0.64 k/cumm (0.11-0.7); Absolute Neutrophil Count 3.46 k/cumm (1.2-6.7); Basophils % 1.2; Eosinophils % 6.6; HCT 33.2 % (36.0-46.0); Immature Grans % 0.7 %; Lymphocytes % 20.6; Mean Corp. HGB Concentration 33.1 g/dL (32.0-36.0); Mean Corpuscular Hemoglobin 32.5 pg (27.0-33.0); Mean Corpuscular Volume 98.2 fL (80-95); Monocytes % 11.1; Neutrophils % 59.8; RBC 3.38 m/cumm (4.00-5.20); RBC Distribution Width 14.7 % (11.7-14.6); White Blood Cell Count 5.78 k/cumm (4.4-10.8)
[2020-02-18 07:19] LABS: ALT 51 U/L (14-59); AST 69 U/L (15-37); Albumin 1.8 g/dL (3.4-5.0); Alkaline Phosphatase 121 U/L (46-116); Anion Gap 1.2 mmol/L (3-11); BUN 28 mg/dL (7-18); Bilirubin, Total 2.7 mg/dL (0.2-1.0); CO2 32.8 mmol/L (21.0-32.0); CREATININE 0.94 mg/dL (0.55-1.02); Calcium 7.8 mg/dL (8.5-10.1); Chloride 105 mmol/L (98-107); Glucose 120 mg/dL (74-106); Sodium 139 mmol/L (136-145); Total Protein 5.2 g/dL (6.4-8.2)
[2020-02-18] MEDS: Pantoprazole 40 MG TABCR PO (07:23)
[2020-02-18] MEDS: Sucralfate 1 GM TAB PO ×4 (07:24→22:09)
[2020-02-18 07:29] LABS: Basophilic Stippling Present; Diff Comment PLT Morph Reviewed; Platelet Count 88 x1000/uL (130-400)
[2020-02-18 07:30] LABS: Polychromasia Present
[2020-02-18] MEDS: Lactulose 20 GM/30 ML CUP 10 GM PO ×3 (08:20→20:12)
[2020-02-18] MEDS: Furosemide 40 MG TAB PO ×2 (08:21→15:25)
[2020-02-18] MEDS: Rifaximin 550 MG TAB PO ×2 (08:21→20:11)
[2020-02-18] MEDS: Ferrous Sulfate 325 MG TAB PO (08:22)
[2020-02-18] MEDS: Spironolactone 50 MG TAB PO (08:22)
[2020-02-18] MEDS: Pregabalin 100 MG CAP PO ×3 (08:22→20:11)
[2020-02-18] MEDS: Nadolol 40 MG TAB PO (08:22)
[2020-02-18] MEDS: Nystatin POWDER 15 GM JAR TP ×3 (08:26→20:12)
[2020-02-18] MEDS: Nystatin OINT 15 GM TUBE TP ×3 (08:27→20:12)
--- NOTE | 2020-02-18 09:17 | PDOC.CMPRO ---
- If Service Date Differs Date of service: 02/18/20 Time of Service: 09:17 Care Management Progress Note S/O: Cely was sitting up in a chair talking to her sister on the phone when CM met with her. She was smiling and appropriate and engaged readily with CM. Mayra shared that she hopes to be discharged home soon. She verbalized understanding of her discharge plan which will include home IV antibiotic therapy. Mayra will have new home health to help coordinate the home infusion but denies the need for any additional services. A: 65 year old female admitted to [facility] P: Orders sent to [facility] for Oxycillin Q4 IV ABX to empirically treat endocarditis. Anticipate with negative blood cultures for 48 hours, PICC will be placed and coordination of [facility] ([facility]) and DME [facility] home infusion services coordination can be completed. Tentative discharge plan for , 02/20/20 at this time. Mayra will return home when ready per MD, she will follow up with her PCP and transport via private vehicle with family.
[2020-02-18] MEDS: Magnesium Oxide 400 MG TAB PO ×2 (09:22→20:11)
[2020-02-18] MEDS: Mylanta Suspension 30 ML CUP PO (09:22)
--- NOTE | 2020-02-18 12:35 | W.PM.PROGNOT ---
Date of Service Date of service: 02/18/20 Time of Service: 12:35 Assessment and Plan Assessment and plan (1) Bacteremia due to group B Streptococcus: Status: Acute Assessment and plan: She remains asymptomatic and afebrile. Unfortunately, subsequent blood culture, as noted below, positive for gram-positive cocci. Pending identification of the subsequent culture, no change in management at this time. (2) Gram-positive bacteremia: Status: Acute Assessment and plan: Subsequent blood culture positive for gram-positive cocci. Not known at this point if it is also group B strep or possible other gram-positive cocci (such as skin contaminant). I am not going to initiate additional source work-up until identification of the second culture returns. If it again shows group B strep diagnostics for source of continued bacteremia will be initiated?and may need to consider transesophageal echocardiogram, imaging of the abdomen and consultation with ID. (3) Complicated UTI (urinary tract infection): Status: Suspected Assessment and plan: On p.o. Cipro for E. coli in the urine and seems to be tolerating this well. No changes planned at this time. (4) Cirrhosis: Status: Chronic Assessment and plan: Exam difficult to determine if she has any ascites. Med adjustments made yesterday documented below. Qualifiers: Hepatic cirrhosis type: other cirrhosis Qualified Code(s): K74.69 - Other cirrhosis of liver (5) Fluid overload: Status: Acute Assessment and plan: Still has evidence of fluid excess based on exam. Diuretics with furosemide and spironolactone continue, monitoring for adverse metabolic effects. Qualifiers: Hypervolemia type: other Qualified Code(s): E87.79 - Other fluid overload (6) Portal hypertension: Status: Suspected Assessment and plan: Nadolol initiated. Hemodynamically tolerating it thus far. (7) Hepatic encephalopathy: Status: Chronic Assessment and plan: Meeting her for the first time, I am not familiar with her baseline mental status. Seems relatively clear. No change in management at this time. (8) Aortic stenosis, severe: Status: Chronic Assessment and plan: Asymptomatic at present. Monitor with efforts of better managing fluids, use of beta-ken for portal hypertension. (9) Diabetes mellitus: Status: Chronic Assessment and plan: Has not been a significant issue. Decrease frequency of checking fingerstick blood sugars. Qualifiers: Diabetes mellitus type: type 2 Diabetes mellitus termite inspector insulin use: without care home use Diabetes mellitus complication status: without complication Qualified Code(s): E11.9 - Type 2 diabetes mellitus without complications (10) Essential hypertension: Status: Chronic Assessment and plan: Blood pressures acceptable with increased diuretic and addition of nadolol. Continue to follow with these new medications. (11) Iron deficiency anemia: Status: Acute Assessment and plan: Hemoglobin stable. (Platelet count likewise stable). Iron level satisfactory. Continue oral iron supplement. Qualifiers: Iron deficiency anemia type: unspecified iron deficiency Qualified Code(s): D50.9 - Iron deficiency anemia, unspecified (12) Nausea: Status: Acute Assessment and plan: Mild, has not interfered with oral intake. Suspect it might be med side effect with all the recent medication changes. Follow for now. Subjective Subjective Interval history since last seen: Only complaint is some mild stomach queasiness. No pain, does not feel like she is going to throw up and it has not impacted her oral intake. This has developed since hospital arrival. No fever. Second set of blood cultures, 1+ for gram-positive cocci, identification pending. Renal ultrasound this morning unremarkable. Denies shortness of breath, chest discomfort, abdominal discomfort or lower extremity discomfort. Blood sugars have been less than 120 with no intervention other than diet. Exam Narrative Exam Narrative: Seated in wheelchair she is in no acute distress, awake and alert. Sclera anicteric. No nystagmus. Cannot see neck veins because of her neck size. Lungs have crackles about half of the way up bilaterally with diminished breath sounds at both bases and dullness to percussion. 3/6 systolic ejection murmur right upper sternal border heard into the back and neck area. No diastolic murmur no S3 or S4 heard. Abdomen obese with quite active bowel sounds. No tenderness to palpation anywhere. I cannot appreciate if there is any ascites given abdominal size. She has chronic thickening of the skin and lipoatrophy of the lower extremities with increased pigmentation. On the right foot base of the fourth toe is a very superficial erosion with no discharge or redness or tenderness. Difficult to feel a pulse in either foot because of the thick skin and edema. Sits up unassisted. I did not observe her walk or transfer. Objective Objective Clinical Data: Abnormal lab results 06/01/20 06/01/20 06/02/20 Range/Units 07:20 07:20 06:20 RBC (4.00-5.20) m/cumm Hgb (12.0-15.5) g/dL Hct (36.0-46.0) % MCV (80-95) fL RDW (11.7-14.6) % Plt Count (130-400) x1000/uL Absolute Lymphocytes (1.2-3.4) k/cumm Carbon Dioxide 32.8 H (21.0-32.0) mmol/L Anion Gap 1.2 L (3-11) mmol/L BUN 28 H (7-18) mg/dL Glucose 120 H (74-106) mg/dL Calcium 7.8 L (8.5-10.1) mg/dL TIBC 155 L (250-450) ug/dL Ferritin 257 H (8-252) ng/mL Total Bilirubin 2.7 H (0.2-1.0) mg/dL AST 69 H (15-37) U/L Alkaline Phosphatase 121 H (46-116) U/L Total Protein 5.2 L (6.4-8.2) g/dL Albumin 1.8 L (3.4-5.0) g/dL Vitamin B12 1309 H (193-986) pg/mL 02/18/20 Range/Units 06:20 RBC 3.38 L (4.00-5.20) m/cumm Hgb 11.0 L (12.0-15.5) g/dL Hct 33.2 L (36.0-46.0) % MCV 98.2 H (80-95) fL RDW 14.7 H (11.7-14.6) % Plt Count 88 L (130-400) x1000/uL Absolute Lymphocytes 1.19 L (1.2-3.4) k/cumm Carbon Dioxide (21.0-32.0) mmol/L Anion Gap (3-11) mmol/L BUN (7-18) mg/dL Glucose (74-106) mg/dL Calcium (8.5-10.1) mg/dL TIBC (250-450) ug/dL Ferritin (8-252) ng/mL Total Bilirubin (0.2-1.0) mg/dL AST (15-37) U/L Alkaline Phosphatase (46-116) U/L Total Protein (6.4-8.2) g/dL Albumin (3.4-5.0) g/dL Vitamin B12 (193-986) pg/mL Vital Signs Temperature 37.1 C 02/18/20 08:15 Temperature Source Temporal Artery Scan 02/18/20 08:15 Pulse 68 02/18/20 08:20 Pulse Rhythm Regular 02/18/20 00:05 Pulse 81 02/16/20 09:30 Respiratory Rate 18 02/18/20 08:15 Respiratory Effort Non-Labored 02/18/20 00:05 Respiratory Depth Normal 02/18/20 00:05 Respiratory Pattern Normal 02/18/20 00:05 Blood Pressure 122/68 02/18/20 08:20 Blood Pressure Mean 61 02/16/20 09:07 Blood Pressure Position Supine 02/16/20 00:05 Pulse Oximetry 91 L 02/18/20 09:20 Oxygen Delivery Method Room Air 02/18/20 09:20 Oxygen Flow Rate 0 02/18/20 09:20 Pain Level 0 02/18/20 08:15 Comment 02/18/20 08:20 Intake & Output 02/17/20 02/18/20 02/18/20 23:59 11:59 23:59 Intake Total 630 / 1890 400 / 400 Output Total 400 / 1250 200 / 200 Balance 230 / 640 200 / 200 Intake: IV 150 / 300 160 / 160 Oral 480 / 1590 240 / 240 Output: Urine 400 / 1250 200 / 200 Other: Urine Color Yellow Light Jenna Urine Appearance Clear Clear Urine Odor Normal Strong Comment mixed with black stools. Void x1 in the bedside commode. RN unable to determine urine amount; urine mixed with stool. Stool Occult Blood Positive Stool Size Moderate Small Stool Characteristics Liquid Soft Black Brown Voiding Methods Bedside Commode Bedside Commode Laboratory Results WBC 5.78 k/cumm (4.4-10.8) 02/18/20 06:20 RBC 3.38 m/cumm (4.00-5.20) L 02/18/20 06:20 Hgb 11.0 g/dL (12.0-15.5) L 02/18/20 06:20 Hct 33.2 % (36.0-46.0) L 02/18/20 06:20 MCV 98.2 fL (80-95) H 06/02/20 06:20 MCH 32.5 pg (27.0-33.0) 02/18/20 06:20 MCHC 33.1 g/dL (32.0-36.0) 02/18/20 06:20 RDW 14.7 % (11.7-14.6) H 02/18/20 06:20 Plt Count 88 x1000/uL (130-400) L 02/18/20 06:20 MPV 10.0 fL (8.0-11.0) 02/18/20 06:20 Immature Gran % 0.7 % 02/18/20 06:20 Neutrophils % 59.8 02/18/20 06:20 Band Neutrophils % 10.0 % 02/16/20 07:18 Lymphocytes % 20.6 02/18/20 06:20 Atypical Lymphs % 4 02/16/20 07:18 Monocytes % 11.1 02/18/20 06:20 Eosinophils % 6.6 02/18/20 06:20 Basophils % 1.2 02/18/20 06:20 Metamyelocytes % 1.0 % 02/16/20 07:18 Myelocytes % Cancelled 02/16/20 06:37 Promyelocytes % Cancelled 02/16/20 06:37 Absolute Neutrophils 3.46 k/cumm (1.2-6.7) 02/18/20 06:20 Absolute Lymphocytes 1.19 k/cumm (1.2-3.4) L 02/18/20 06:20 Absolute Monocytes 0.64 k/cumm (0.11-0.7) 02/18/20 06:20 Absolute Eosinophils 0.38 k/cumm (0.0-0.7) 02/18/20 06:20 Absolute Basophils 0.07 k/cumm (0.0-0.2) 02/18/20 06:20 Nucleated RBCs Cancelled 02/16/20 06:37 Differential Comment Plt morph reviewed 02/18/20 06:20 Other Cell Type Cancelled 02/16/20 06:37 RBC Morphology See below 02/18/20 06:20 Polychromasia Present 02/18/20 06:20 Hypochromasia Cancelled 02/16/20 06:37 Poikilocytosis Cancelled 02/16/20 06:37 Basophilic Stippling Present 02/18/20 06:20 Anisocytosis Cancelled 02/16/20 06:37 Microcytosis Cancelled 02/16/20 06:37 Macrocytosis Cancelled 02/16/20 06:37 Spherocytes Cancelled 02/16/20 06:37 Target Cells Cancelled 02/16/20 06:37 Tear Drop Cells Cancelled 02/16/20 06:37 Ovalocytes Cancelled 02/16/20 06:37 Stomatocytes Cancelled 02/16/20 06:37 [place] Bodies Cancelled 02/16/20 06:37 [place] Cells Cancelled 02/16/20 06:37 Acanthocytes (Spur) Cancelled 02/16/20 06:37 Schistocytes Cancelled 02/16/20 06:37 PT 12.8 sec (9.3-11.0) H 02/15/20 06:30 INR 1.3 (0.9-1.1) H 02/15/20 06:30 D-Dimer Cancelled 02/14/20 23:30 Sodium 139 mmol/L (136-145) 02/18/20 06:20 Potassium 4.0 mmol/L (3.5-5.1) 02/18/20 06:20 Chloride 105 mmol/L (98-107) 02/18/20 06:20 Carbon Dioxide 32.8 mmol/L (21.0-32.0) H 02/18/20 06:20 Anion Gap 1.2 mmol/L (3-11) L 02/18/20 06:20 BUN 28 mg/dL (7-18) H 02/18/20 06:20 Creatinine 0.94 mg/dL (0.55-1.02) 02/18/20 06:20 Estimated GFR/1.73 m2 >= 60.00 (mL/min/1.73m2) 02/18/20 06:20 Glucose 120 mg/dL (74-106) H 02/18/20 06:20 Hemoglobin A1c 5.0 % (3.8-5.6) 02/17/20 07:20 Lactate 1.6 mmol/L (0.6-1.4) H 02/16/20 04:00 Calcium 7.8 mg/dL (8.5-10.1) L 02/18/20 06:20 Magnesium 1.9 mg/dL (1.8-2.4) 02/17/20 07:20 Iron 51 ug/dL (50-170) 02/17/20 07:20 TIBC 155 ug/dL (250-450) L 02/17/20 07:20 Transferrin % Sat 33 % (15-50) 02/17/20 07:20 Ferritin 257 ng/mL (8-252) H 02/17/20 07:20 Total Bilirubin 2.7 mg/dL (0.2-1.0) H 02/18/20 06:20 AST 69 U/L (15-37) H 02/18/20 06:20 ALT 51 U/L (14-59) 02/18/20 06:20 Alkaline Phosphatase 121 U/L (46-116) H 02/18/20 06:20 C-Reactive Protein 8.48 mg/dL (0.0-0.3) H 02/17/20 07:20 NT-Pro-B Natriuret Pep 1039 pg/mL (<300) H 02/15/20 06:30 Total Protein 5.2 g/dL (6.4-8.2) L 02/18/20 06:20 Albumin 1.8 g/dL (3.4-5.0) L 02/18/20 06:20 Vitamin B12 1309 pg/mL (193-986) H 02/17/20 07:20 Folate 9.8 ng/mL (8.6-20.0) 02/17/20 07:20 Procalcitonin 12.9 ng/mL 02/17/20 07:20 TSH 0.53 uIU/mL (0.36-3.74) 02/15/20 06:30 Urine Color Brown (Yellow) 02/14/20 21:45 Urine Clarity Cloudy (Clear) 02/14/20 21:45 Urine pH 6.0 (5-8) 02/14/20 21:45 Ur Specific [place] 1.020 (1.005-1.025) 02/14/20 21:45 Urine Protein 100 mg/dL (Negative) H 02/14/20 21:45 Urine Ketones 15 mg/dL (Negative) H 02/14/20 21:45 Urine Blood Large (Negative) H 02/14/20 21:45 Urine Nitrite Negative (Negative) 02/14/20 21:45 Urine Bilirubin Moderate (Negative) H 02/14/20 21:45 Urine Urobilinogen 1.0 EU/dL (Up TO 0.2) H 02/14/20 21:45 Ur Leukocyte Esterase Negative (Negative) 02/14/20 21:45 Urine RBC >50 HPF (0-2) H 02/14/20 21:45 Urine WBC 5-10 HPF (0-5) 02/14/20 21:45 Ur Epithelial Cells Rare HPF (Negative) 02/14/20 21:45 Urine Crystals Negative HPF (Negative) 02/14/20 21:45 Urine Bacteria Moderate HPF (Negative) 02/14/20 21:45 Urine Casts Negative LPF (Negative) 02/14/20 21:45 Urine Mucus Trace (Negative) 02/14/20 21:45 Urine Other Few yeast (Negative) 02/14/20 21:45 Ur Culture Indicated? Yes 02/14/20 21:45 Urine Glucose Negative mg/dL (Negative) 02/14/20 21:45 COVID-19 PCR Negative (Negative) 02/14/20 22:15 Nasopharyn COVID-19 PCR Not Applicable 02/14/20 22:15 Ref Test Perform Site [facility] 02/14/20 22:15 1 of 2 blood cultures drawn on February 16 is + at less than 24 hours growth for gram-positive cocci in clusters.
--- NOTE | 2020-02-18 16:40 | IN_ITS ---
Date of service: 02/18/20 Time of Service: 16:40 PT Notes Visit Reasons: SEPSIS SYNDROME, BILATERAL PNEUMONIA Physical Therapy Inpatient Initial Evaluation Date: 02/18/2020 Referring Doctor: Rohan Lee MD PT Orders: PT CONSULT: Limited ability. Extended-stay weakness. Precautions: Fall. Standard. Activity as tolerated. Patient Profile/Admitting Diagnosis: Mayra is a 65-year-old female with past medical history significant for hepatic encephalopathy, diabetes mellitus, and aortic stenosis who presented to the ED on 02/14/2020 with chief presentation of acute onset fever with nausea and loose stools. Patient is diagnosed with group B Streptococcus bacteremia, fluid overload, and iron deficiency anemia. 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; s/p ACDF 2005 Cervical disc disorder with myelopathy (Resolved 09/04/12) Chronic epigastric pain (Chronic 03/23/16) DVT prophylaxis (Inactive) Edema, unspecified (Resolved) 06/28/16 B/L Elev transaminase/LDH (Resolved) Elevation of level of transaminase and lactic acid dehydrogenase (LDH) (Chronic) Epistaxis (Inactive) Esophageal varices with hemorrhage Fever (Inactive) Fever, unknown origin (Resolved) 04/14/16 GI bleed (Resolved) Hepatic encephalopathy Incisional hernia (Resolved 01/15/15) Incisional hernia (Chronic 01/15/15) Mild epistaxis (Resolved) 12/21/15 Sepsis (Inactive) Thyroid nodule (Resolved) right; 2008-[facility]; 2.3cm nodule; neg. biopsy Uninodular goiter Surgical History Colonoscopy - IV Sedation (04/12/13) DR. Bhumika CLAYTON Open Carpal Tunnel release RIGHT OTHER CERVICAL FUS ANT discectomy 2008 [facility]; NEGATIVE THYROID BX S/P carpal tunnel release (Resolved) right S/P cervical spinal fusion (Resolved) anterior; discectomy S/P cervical spinal fusion (Resolved) anterior;discectomy S/P tonsillectomy (Resolved) Status post biopsy of thyroid gland (Resolved) 09/18/08 neg Status post carpal tunnel release (Resolved) Status post cervical spinal arthrodesis (Resolved) Status post tonsillectomy (Resolved) Tonsillectomy Social History/Home Situation: Patient lives with and daughter in a private home with 3 steps to enter and rails on both sides. She is independent with all aspects of ADLs without the need for assistive ambulatory device or adaptive equipment prior to admission. She has not had any falls for the past 12 months. Equipment Owned/DME: None Subjective: Patient states that she has been having a hard time sleeping the past several nights. She denies any nausea, pain, dizziness, and headache throughout session. She states that she has compression garments for her legs that she uses for her chronic swelling. Objective: General Observation: Obese. IV access in right UE. Swelling to bilateral lower extremities with beginning fibrosis palpated with the left more affected than the right. Hemosiderin staining from pre-existing chronic venous insufficiency. Mental Status: Alert and oriented x4 Pain: None ROM: Right Upper Extremity: Shoulder Flexion WFL. Shoulder abduction WFL. Elbow flexion WFL. Wrist flexion WFL. Opening and closing of hand WFL. Left Upper Extremity: Shoulder Flexion WFL. Shoulder abduction WFL. Elbow flexion WFL. Wrist flexion WFL. Opening and closing of hand WFL. Right Lower Extremity: Hip flexion WFL. Hip abduction WFL. Knee flexion WFL. Ankle dorsiflexion WFL. Ankle plantarflexion WFL. Left Lower Extremity: Hip flexion WFL. Hip abduction WFL. Knee flexion WFL. Ankle dorsiflexion WFL. Ankle plantarflexion WFL. Strength: Right Upper Extremity: Shoulder flexors 5/5. Shoulder abductors 5/5. Elbow flexors 5/5. Elbow extensors 5/5. Video Production Engineer strong. Left Upper Extremity: Shoulder flexors 5/5. Shoulder abductors 5/5. Elbow flexors 5/5. Elbow extensors 5/5. Video Production Engineer strong. Right Lower Extremity: Hip flexors 4/5. Hip abductors 4/5. Knee flexors 4/5. Knee extensors 4/5. Ankle dorsiflexors 4/5. Ankle plantarflexors 4/5. Left Lower Extremity: Hip flexors 4/5. Hip abductors 4/5. Knee flexors 4/5. Knee extensors 4/5. Ankle dorsiflexors 4/5. Ankle plantarflexors 4/5. Sensation: Intact as to pain and pressure on bilateral lower extremities, reports frequent sensation on the soles of the feet and the dorsum of the toes. Bed Mobility/Transfers: Sit to stand supervision requires use of front wheeled walker Stand to sit supervision Bed to chair supervision requires use of front wheeled walker Chair to bed supervision requires use of front wheeled walker Gait: Patient tolerated level surface ambulation of 260 feet using front wheeled walker with standby assist. Reciprocal swing through gait pattern. Patient reported being minimally breathless at the end of activity which resolved later on with rest of about 3 minutes or so. Balance: Static Sitting: Normal Dynamic Sitting: Normal Static Standing: Good Dynamic Standing: Fair Special Tests: Mobility Limitations Standardized Measure [facility]-PAC 6 clicks Basic Mobility Inpatient Short Form: Raw Score: 23 CMS Score: 11% deficit Informed Consent/Education: Patient instructed in purpose of PT consult and plan of care. Assessment: Patient demonstrates the need for assistive ambulatory device for all mobility ADL performance, functional mobility decline, decreased activity tolerance as evidenced by breathlessness with ambulation activity, and generalized weakness of bilateral lower extremities due to admitting diagnoses. Patient presents with clinical signs and symptoms consistent with current/admitting diagnoses that have resulted to mobility limitations, gait instability, and generalized weakness as demonstrated by the following impairment level findings: 1. Decreased strength to B LE major muscle groups 2. Swelling with beginning fibrosis to bilateral lower extremities 3. Impaired activity tolerance Impairments are contributing to the following functional limitations: 1. Inability to safely ambulate without assistive device and physical assistance 2. Increase completion time for mobility ADL performance 3. Inability to negotiate steps alone safely Patient is assessed as a 88633 moderate complexity based on the following: History: 65-year-old female with impairment level findings, functional limitations, and past medical history as listed above Examination: Demonstrable impairment in strength, balance, and activity tolerance with underlying impairments and functional limitations as documented above Presentation: Evolving Decision Makin moderate complexity Goals: Goals X1 week 1. Supine-Sit independent 2. Sit-Supine independent 3. Sit-Stand independent 4. Stand-Sit independent 5. Bed-Chair independent 6. Chair-Bed independent 7. Independent gait on level surface with use of no device for at least 300 feet without report of pain nor dyspnea 8. Independent stair negotiation while holding onto bilateral rails for at least 10 steps without report of pain nor dyspnea 9. Independent with home exercise program 10. Good static and dynamic standing balance/tolerance Plan of Care/Treatment Plan: 1-2x/day, 7 days/week x 1 week. Plan of care has been reviewed with the ARBORIST providing the service under Physical Therapy direction. Initiate Physical Therapy intervention for strengthening, bed mobility, transfers, gait, stairs, balance training, use of assistive device. PT intervention: Session today consisted of initial physical therapy evaluation as well as education and training on safe mobility ADL performance using front wheeled walker. DISCHARGE RECOMMENDATIONS: Home when medically cleared. Assistive ambulatory device to be determined based on patient's discharge mobility level. TREATMENT CODE/TIME: 79299 x 26 minutes beginning at 4:40 PM. Thank you very much for this referral. Gill Hill PT, DPT, CLT [facility] [place], [place]
[2020-02-18] MEDS: Normal Saline Flush 10 ML SYR 20 ML IVP (20:11)
[2020-02-19] MEDS: Normal Saline Flush 10 ML SYR IVP ×7 (02:04→18:40)
[2020-02-19 04:00] VITALS: BP 124/65; PULSE 67; RESP 16; TEMP 37.2; O2SAT 94
[2020-02-19] MEDS: Ciprofloxacin 500 MG TAB PO ×2 (06:20→18:40)
[2020-02-19] MEDS: Normal Saline Flush 10 ML SYR 20 ML IVP ×2 (06:45→19:49)
[2020-02-19 07:16] LABS: Anion Gap 0 mmol/L (3-11); BUN 28 mg/dL (7-18); CREATININE 1.01 mg/dL (0.55-1.02); Calcium 8.1 mg/dL (8.5-10.1); Chloride 105 mmol/L (98-107); Estimated GFR 55.36 (mL/min/1.73m2); Glucose 113 mg/dL (74-106); Sodium 142 mmol/L (136-145)
[2020-02-19] MEDS: Pantoprazole 40 MG TABCR PO (07:30)
[2020-02-19] MEDS: Sucralfate 1 GM TAB PO ×4 (07:31→21:45)
[2020-02-19 08:00] VITALS: BP 137/66; PULSE 72; RESP 18; TEMP 37.4; O2SAT 93
--- NOTE | 2020-02-19 08:13 | CMPROGNOTE_ITS ---
- If Service Date Differs Date of service: 02/19/20 Time of Service: 08:13 Care Management Progress Note S/O: Mayra was sitting up in a chair most of the day.GERRY met with her several times to finalize discharge plans for home infusion therapy. She is currently receiving the IV Oxacillin on a q4 hour schedule (10 am, 2 pm, 6 pm, 10 pm,2 am, 6 am). The tentative plan is for the antibiotic to be delivered to Mayra's home today and for her to discharge home after her 10 am dose tomorrow. [facility] has been updated to enable further coordination with [facility]. A midline catheter was placed yesterday. A: 65 year old female admitted to [facility] P:GERRY has coordinated the home IV antibiotic infusion of Oxacillin q4h with [facility] and [facility]. Mayra will need to complete 2 to 6 weeks of therapy for Group B Strep bacteremia. The tentative plan is for her to be discharged after the 10 am dose tomorrow morning and for [facility] to admit her to their service in time to initiate the 2 pm dose. [facility] will deliver the medication today. Mayra will follow up with her PCP and transport via private vehicle with family.
--- NOTE | 2020-02-19 08:13 | PDOC.CMPRO ---
- If Service Date Differs Date of service: 02/19/20 Time of Service: 08:13 Care Management Progress Note S/O: Mayra was sitting up in a chair most of the day.GERRY met with her several times to finalize discharge plans for home infusion therapy. She is currently receiving the IV Oxacillin on a q4 hour schedule (10 am, 2 pm, 6 pm, 10 pm,2 am, 6 am). The tentative plan is for the antibiotic to be delivered to Mayra's home today and for her to discharge home after her [address] [facility] has been updated to enable further coordination with [facility]. A midline catheter was placed yesterday. A: 65 year old female admitted to [facility] P:GERRY has coordinated the home IV antibiotic infusion of Oxacillin q4h with [facility] and [facility]. Mayra will need to complete 2 to 6 weeks of therapy for Group B Strep bacteremia. The tentative plan is for her to be discharged after the 10 am dose tomorrow morning and for [facility] to admit her to their service in time to initiate the 2 pm dose. [facility] will deliver the medication today. Mayra will follow up with her PCP and transport via private vehicle with family.
[2020-02-19] MEDS: Nystatin POWDER 15 GM JAR TP ×2 (09:35→19:49)
[2020-02-19] MEDS: Pregabalin 100 MG CAP PO ×3 (09:36→19:49)
[2020-02-19] MEDS: Lactulose 20 GM/30 ML CUP 10 GM PO ×2 (09:36→19:50)
[2020-02-19] MEDS: Nadolol 40 MG TAB PO (09:36)
[2020-02-19] MEDS: Normal Saline 500 ML 30 ML IVPB (09:36)
[2020-02-19] MEDS: Magnesium Oxide 400 MG TAB PO ×2 (09:36→19:49)
[2020-02-19] MEDS: Ferrous Sulfate 325 MG TAB PO (09:36)
[2020-02-19] MEDS: Rifaximin 550 MG TAB PO ×2 (09:36→19:49)
[2020-02-19] MEDS: Nystatin OINT 15 GM TUBE TP ×2 (09:36→19:49)
[2020-02-19] MEDS: Furosemide 40 MG TAB PO (09:37)
--- NOTE | 2020-02-19 09:44 | PT.INTREAT ---
Date of service: 02/19/20 Time of Service: 09:10 PT Notes Visit Reasons: SEPSIS SYNDROME, BILATERAL PNEUMONIA Inpatient Physical Therapy Treatment Note [facility] Date: 02/19/20 PRECAUTIONS: Fall SUBJECTIVE: Mayra is hesitant to participate in PT, reporting she feels that she will get short of breath with activity. She reports that she only needs to negotiate 3 steps with bilateral rails to get into her home, and that she does not plan to use the second level within her home when she returns. OBJECTIVE: PAIN: No c/o pain BED MOBILITY/TRANSFERS Sit-stand: I Stand-sit: I GAIT Assistive Device: FWW No AD Weight bearing: Full Assist: S Distance: 50' with FWW No AD with 200' Deviation: Mild SOB at completion of gait training STAIRS: Up/down 3x4 using B rails and a step-to pattern, independently without SOB ASSESSMENT: Patient tolerated session well with minimal c/o SOB following gait training. She was able to demonstrate safety with gait training without use of assistive device. PLAN: Continue with PT's POC TREATMENT CODE/TIME: 20 minutes; 22024
--- NOTE | 2020-02-19 11:23 | CHAPLAIN ---
Mayra was in the recliner when I visited. She said she had walked with PT and done some stairs. She is frustrated being here, but has been keeping n touch with family by phone.
[2020-02-19 11:25] VITALS: BP 126/67; PULSE 66; RESP 16; TEMP 37; O2SAT 95
--- NOTE | 2020-02-19 12:01 | PGE_ITS ---
Date of Service Date of service: 02/19/20 Time of Service: 12:02 Assessment and Plan Assessment and plan (1) Bacteremia due to group B Streptococcus: Status: Acute Assessment and plan: She remains asymptomatic and afebrile. Subsequent blood culture contaminant. I think source likely cutaneous without ongoing seeding or bacteremia. Call placed to ID to discuss duration of IV antibiotics. No indication on transthoracic echocardiogram of endocarditis. (2) Gram-positive bacteremia: Status: Acute Assessment and plan: Subsequent blood culture positive for gram-positive cocci. 2 different coag negative staph from 1 culture with notation that blood draw was difficult. I think this is contaminant and does not merit change in treatment. (3) Complicated UTI (urinary tract infection): Status: Suspected Assessment and plan: On p.o. Cipro for E. coli in the urine and seems to be tolerating this well. No changes planned at this time. (4) Cirrhosis: Status: Chronic Assessment and plan: Exam difficult to determine if she has any ascites. Over diuresing with increased BUN. Change in diuretics as noted below. Qualifiers: Hepatic cirrhosis type: other cirrhosis Qualified Code(s): K74.69 - Other cirrhosis of liver (5) Fluid overload: Status: Acute Assessment and plan: Intermittent oxygen requirement but improved lung exam. Still has peripheral edema, perhaps acute on chronic? BUN increasing and I am concerned about overdiuresis. I am stopping spironolactone, reducing furosemide to her outpatient dose and monitoring fluid balance and labs. I anticipate she will re-equilibrate but it may just take a little longer and I do not want iatrogenic problems from overdiuresis. Qualifiers: Hypervolemia type: other Qualified Code(s): E87.79 - Other fluid overload (6) Portal hypertension: Status: Suspected Assessment and plan: Nadolol initiated. Hemodynamically tolerating it thus far. (7) Hepatic encephalopathy: Status: Chronic Assessment and plan: Family members have spoken with her and her PCP, Dr. Baron met with her this morning and they report mental status at baseline. Lactulose decreased to her outpatient dose. Rifaximin remains the same. (8) Aortic stenosis, severe: Status: Chronic Assessment and plan: Asymptomatic at present. Reports this is known to medical providers at [facility]. She is not sure if there was ever a conversation about TAVR. Certainly not a candidate right now with recent bacteremia. Does not seem to be creating any hemodynamic problems. (9) Diabetes mellitus: Status: Chronic Assessment and plan: Has not been an issue. I have stopped checking blood sugars because of stability. Qualifiers: Diabetes mellitus type: type 2 Diabetes mellitus adjunct faculty for medical terminology insulin use: without intermediate use Diabetes mellitus complication status: without complication Qualified Code(s): E11.9 - Type 2 diabetes mellitus without complications (10) Essential hypertension: Status: Chronic Assessment and plan: Blood pressures acceptable with addition of nadolol. Continue to follow with these new medications. (11) Iron deficiency anemia: Status: Acute Assessment and plan: Hemoglobin stable. (Platelet count likewise stable). Iron level satisfactory. Continue oral iron supplement. Qualifiers: Iron deficiency anemia type: unspecified iron deficiency Qualified Code(s): D50.9 - Iron deficiency anemia, unspecified (12) Nausea: Status: Resolved Assessment and plan: No further nausea. Monitor for recurrence. (13) Discharge planning issues: Status: Acute Assessment and plan: In process arrangements for home IV therapy. Unclear if she will need home oxygen as well on a temporary basis. We will see how she does over the next 24 hours with continued diuresis. Subjective Subjective Interval history since last seen: Patient has no complaints. Nausea resolved. Oxygen levels have been dipping down with activity, she has been on and off 1 L nasal cannula. She remains afebrile. Subsequent blood culture after starting antibiotics growing to coag negative staph, not group B strep, likely contaminant. Denies shortness of breath or pain anywhere. Intake and output are not accurately recorded. Her weight has not changed significantly, there has been a change in scale making it difficult to compare prior weights. Eager to return home. Exam Narrative Exam Narrative: Sleeping initially easily arousable awake and alert and aware of her circumstances. No fever. Blood pressure 130s over 60s. Pulse in the 70s SaO2 on 1 L 93%. Weight on scale today 113.2 kg. Sclera mildly icteric. Cannot see neck veins because of neck size. Lungs still have diminished breath sounds at the bases but there is better aeration in her lungs compared to yesterday and crackles do not go as high, perhaps a quarter of the way up on the right. No rub. 3/6 systolic ejection murmur heard loudest right upper sternal border. No diastolic murmur heard. Abdomen obese with induration and thickening of the skin of the abdominal wall but no tenderness. Active bowel sounds present. Tense edema of the lower extremities to the knees, little change compared to yesterday. There is no erythema or weeping from the skin in her feet. I do not see any open skin areas on her feet today. Objective Objective Clinical Data: Abnormal lab results 02/19/20 Range/Units 06:30 Carbon Dioxide 37.0 H (21.0-32.0) mmol/L Anion Gap 0 L (3-11) mmol/L BUN 28 H (7-18) mg/dL Glucose 113 H (74-106) mg/dL Calcium 8.1 L (8.5-10.1) mg/dL Vital Signs Temperature 37.4 C 02/19/20 08:00 Temperature Source Tympanic 02/19/20 08:00 Pulse 72 02/19/20 08:00 Pulse Rhythm Regular 02/18/20 22:47 Pulse 81 02/16/20 09:30 Respiratory Rate 18 02/19/20 08:00 Respiratory Effort 02/18/20 22:47 Respiratory Depth Normal 02/18/20 22:47 Respiratory Pattern Normal 02/18/20 22:47 Blood Pressure 137/66 02/19/20 08:00 Blood Pressure Mean 61 02/16/20 09:07 Blood Pressure Position Supine 02/16/20 00:05 Pulse Oximetry 93 L 02/19/20 08:00 Oxygen Delivery Method Nasal Cannula 02/19/20 08:00 Oxygen Flow Rate 1 02/19/20 08:00 Pain Level 0 02/19/20 08:00 Comment 02/18/20 16:00 Intake & Output 02/18/20 02/19/20 02/19/20 23:59 11:59 23:59 Intake Total 1140 / 1570 340 / 340 Output Total 100 / 100 Balance 1140 / 1370 240 / 240 Weight 113.2 kg Intake: IV 200 / 390 100 / 100 Oral 940 / 1180 240 / 240 Output: Urine 100 / 100 Other: Urine Color Yellow Yellow Urine Appearance Clear Clear Urine Odor None Comment urine mixed with stool Urine mixed with stool. Stool Size Small Small Stool Characteristics Liquid Soft Liquid Voiding Methods Toilet Bedside Commode Laboratory Results WBC 5.78 k/cumm (4.4-10.8) 02/18/20 06:20 RBC 3.38 m/cumm (4.00-5.20) L 02/18/20 06:20 Hgb 11.0 g/dL (12.0-15.5) L 02/18/20 06:20 Hct 33.2 % (36.0-46.0) L 02/18/20 06:20 MCV 98.2 fL (80-95) H 02/18/20 06:20 MCH 32.5 pg (27.0-33.0) 02/18/20 06:20 MCHC 33.1 g/dL (32.0-36.0) 02/18/20 06:20 RDW 14.7 % (11.7-14.6) H 02/18/20 06:20 Plt Count 88 x1000/uL (130-400) L 02/18/20 06:20 MPV 10.0 fL (8.0-11.0) 02/18/20 06:20 Immature Gran % 0.7 % 02/18/20 06:20 Neutrophils % 59.8 02/18/20 06:20 Band Neutrophils % 10.0 % 02/16/20 07:18 Lymphocytes % 20.6 02/18/20 06:20 Atypical Lymphs % 4 02/16/20 07:18 Monocytes % 11.1 02/18/20 06:20 Eosinophils % 6.6 02/18/20 06:20 Basophils % 1.2 02/18/20 06:20 Metamyelocytes % 1.0 % 02/16/20 07:18 Myelocytes % Cancelled 02/16/20 06:37 Promyelocytes % Cancelled 02/16/20 06:37 Absolute Neutrophils 3.46 k/cumm (1.2-6.7) 02/18/20 06:20 Absolute Lymphocytes 1.19 k/cumm (1.2-3.4) L 02/18/20 06:20 Absolute Monocytes 0.64 k/cumm (0.11-0.7) 02/18/20 06:20 Absolute Eosinophils 0.38 k/cumm (0.0-0.7) 02/18/20 06:20 Absolute Basophils 0.07 k/cumm (0.0-0.2) 02/18/20 06:20 Nucleated RBCs Cancelled 02/16/20 06:37 Differential Comment Plt morph reviewed 02/18/20 06:20 Other Cell Type Cancelled 02/16/20 06:37 RBC Morphology See below 02/18/20 06:20 Polychromasia Present 02/18/20 06:20 Hypochromasia Cancelled 02/16/20 06:37 Poikilocytosis Cancelled 02/16/20 06:37 Basophilic Stippling Present 02/18/20 06:20 Anisocytosis Cancelled 02/16/20 06:37 Microcytosis Cancelled 02/16/20 06:37 Macrocytosis Cancelled 02/16/20 06:37 Spherocytes Cancelled 02/16/20 06:37 Target Cells Cancelled 02/16/20 06:37 Tear Drop Cells Cancelled 02/16/20 06:37 Ovalocytes Cancelled 02/16/20 06:37 Stomatocytes Cancelled 02/16/20 06:37 [place] Bodies Cancelled 02/16/20 06:37 [place] Cells Cancelled 02/16/20 06:37 Acanthocytes (Spur) Cancelled 02/16/20 06:37 Schistocytes Cancelled 02/16/20 06:37 PT 12.8 sec (9.3-11.0) H 02/15/20 06:30 INR 1.3 (0.9-1.1) H 02/15/20 06:30 D-Dimer Cancelled 02/14/20 23:30 Sodium 142 mmol/L (136-145) 02/19/20 06:30 Potassium 4.0 mmol/L (3.5-5.1) 02/19/20 06:30 Chloride 105 mmol/L (98-107) 02/19/20 06:30 Carbon Dioxide 37.0 mmol/L (21.0-32.0) H 02/19/20 06:30 Anion Gap 0 mmol/L (3-11) L 02/19/20 06:30 BUN 28 mg/dL (7-18) H 02/19/20 06:30 Creatinine 1.01 mg/dL (0.55-1.02) 02/19/20 06:30 Estimated GFR/1.73 m2 55.36 (mL/min/1.73m2) 02/19/20 06:30 Glucose 113 mg/dL (74-106) H 02/19/20 06:30 Hemoglobin A1c 5.0 % (3.8-5.6) 02/17/20 07:20 Lactate 1.6 mmol/L (0.6-1.4) H 02/16/20 04:00 Calcium 8.1 mg/dL (8.5-10.1) L 02/19/20 06:30 Magnesium 1.9 mg/dL (1.8-2.4) 02/17/20 07:20 Iron 51 ug/dL (50-170) 02/17/20 07:20 TIBC 155 ug/dL (250-450) L 02/17/20 07:20 Transferrin % Sat 33 % (15-50) 02/17/20 07:20 Ferritin 257 ng/mL (8-252) H 02/17/20 07:20 Total Bilirubin 2.7 mg/dL (0.2-1.0) H 02/18/20 06:20 AST 69 U/L (15-37) H 02/18/20 06:20 ALT 51 U/L (14-59) 02/18/20 06:20 Alkaline Phosphatase 121 U/L (46-116) H 02/18/20 06:20 C-Reactive Protein 8.48 mg/dL (0.0-0.3) H 02/17/20 07:20 NT-Pro-B Natriuret Pep 1039 pg/mL (<300) H 02/15/20 06:30 Total Protein 5.2 g/dL (6.4-8.2) L 02/18/20 06:20 Albumin 1.8 g/dL (3.4-5.0) L 02/18/20 06:20 Vitamin B12 1309 pg/mL (193-986) H 02/17/20 07:20 Folate 9.8 ng/mL (8.6-20.0) 02/17/20 07:20 Procalcitonin 12.9 ng/mL 02/17/20 07:20 TSH 0.53 uIU/mL (0.36-3.74) 02/15/20 06:30 Urine Color Brown (Yellow) 02/14/20 21:45 Urine Clarity Cloudy (Clear) 02/14/20 21:45 Urine pH 6.0 (5-8) 02/14/20 21:45 Ur Specific [place] 1.020 (1.005-1.025) 02/14/20 21:45 Urine Protein 100 mg/dL (Negative) H 02/14/20 21:45 Urine Ketones 15 mg/dL (Negative) H 02/14/20 21:45 Urine Blood Large (Negative) H 02/14/20 21:45 Urine Nitrite Negative (Negative) 02/14/20 21:45 Urine Bilirubin Moderate (Negative) H 02/14/20 21:45 Urine Urobilinogen 1.0 EU/dL (Up TO 0.2) H 02/14/20 21:45 Ur Leukocyte Esterase Negative (Negative) 02/14/20 21:45 Urine RBC >50 HPF (0-2) H 02/14/20 21:45 Urine WBC 5-10 HPF (0-5) 02/14/20 21:45 Ur Epithelial Cells Rare HPF (Negative) 02/14/20 21:45 Urine Crystals Negative HPF (Negative) 02/14/20 21:45 Urine Bacteria Moderate HPF (Negative) 02/14/20 21:45 Urine Casts Negative LPF (Negative) 02/14/20 21:45 Urine Mucus Trace (Negative) 02/14/20 21:45 Urine Other Few yeast (Negative) 02/14/20 21:45 Ur Culture Indicated? Yes 02/14/20 21:45 Urine Glucose Negative mg/dL (Negative) 02/14/20 21:45 COVID-19 PCR Negative (Negative) 02/14/20 22:15 Nasopharyn COVID-19 PCR Not Applicable 02/14/20 22:15 Ref Test Perform Site [place] [facility] 02/14/20 22:15
--- NOTE | 2020-02-19 12:40 | PTTR_ITS ---
Date of service: 02/19/20 Time of Service: 12:40 PT Notes Visit Reasons: SEPSIS SYNDROME, BILATERAL PNEUMONIA Inpatient Physical Therapy Treatment Note [facility] Date: 02/19/20 PRECAUTIONS: Fall. Standard. Activity as tolerated. On 1 L of continuous oxygen/minute. SUBJECTIVE: Patient is agreeable to continuing with increasing her ambulation tolerance and to trying out the stairs again for this afternoon. She did say that she had a good session this morning. OBJECTIVE: On continuous 1 L of oxygen per minute. PAIN: No c/o pain BED MOBILITY/TRANSFERS Sit-stand: I Stand-sit: I GAIT Assistive Device: No AD Weight bearing: Full Assist: S Distance: 300 feet +50 feet Deviation: 1 L of continuous oxygen per minute. No SOB seen at end of activity. STAIRS: Up/down 6 x 4 and 4 x 6 using B rails and a step-to pattern, independently without SOB on 1L of oxygen /min THERA EX: Patient also tolerated seated level exercises after ambulation activity that consisted of seated marches x 10 and long arc quads x 10 without undue difficulty. ASSESSMENT: Patient demonstrated increased confidence with unassisted ambulation for a longer distance without apparent SOB. Activity tolerance is significantly improved compared to yesterday. Will coordinate with care management in anti cipation of discharge from skilled services in a day or two. PLAN: Continue with PT's POC TREATMENT CODE/TIME: 66920 x 24 minutes beginning at 12:40 PM.
[2020-02-19 15:56] VITALS: BP 130/69; PULSE 63; RESP 19; TEMP 36.6; O2SAT 95
[2020-02-19 16:36] VITALS: PULSE 64; PULSE 68; PULSE 76; RESP 24; RESP 28; O2SAT 88; O2SAT 93
[2020-02-19 20:00] VITALS: BP 121/64; PULSE 63; RESP 18; TEMP 37.4; O2SAT 92
[2020-02-20 01:23] VITALS: BP 138/55; PULSE 64; RESP 18; TEMP 37.1; O2SAT 88
[2020-02-20 03:31] VITALS: BP 159/66; PULSE 68; RESP 17; TEMP 36.8; O2SAT 89
[2020-02-20] MEDS: Ciprofloxacin 500 MG TAB PO (06:50)
[2020-02-20 06:52] LABS: HCT 32.9 % (36.0-46.0); HGB 10.9 g/dL (12.0-15.5); Mean Corp. HGB Concentration 33.1 g/dL (32.0-36.0); Mean Corpuscular Hemoglobin 32.7 pg (27.0-33.0); Mean Corpuscular Volume 98.8 fL (80-95); Mean Platelet Volume 9.3 fL (8.0-11.0); RBC 3.33 m/cumm (4.00-5.20); RBC Distribution Width 14.5 % (11.7-14.6); White Blood Cell Count 5.12 k/cumm (4.4-10.8)
[2020-02-20 07:06] LABS: ALT 51 U/L (14-59); AST 67 U/L (15-37); Albumin 1.8 g/dL (3.4-5.0); Alkaline Phosphatase 137 U/L (46-116); Anion Gap -0.2 mmol/L (3-11); BUN 24 mg/dL (7-18); Bilirubin, Total 2.6 mg/dL (0.2-1.0); CO2 36.2 mmol/L (21.0-32.0); Calcium 8.1 mg/dL (8.5-10.1); Chloride 104 mmol/L (98-107); Glucose 109 mg/dL (74-106); Potassium 3.9 mmol/L (3.5-5.1); Sodium 140 mmol/L (136-145); Total Protein 5.1 g/dL (6.4-8.2)
[2020-02-20 07:15] LABS: Platelet Count 95 x1000/uL (130-400)
[2020-02-20 07:46] VITALS: BP 119/68; PULSE 58; RESP 17; TEMP 36.5; O2SAT 96
[2020-02-20] MEDS: Lactulose 20 GM/30 ML CUP 10 GM PO (08:15)
[2020-02-20] MEDS: Nadolol 40 MG TAB PO (08:15)
[2020-02-20] MEDS: Pregabalin 100 MG CAP PO ×2 (08:15→13:55)
[2020-02-20] MEDS: Furosemide 40 MG TAB PO (08:15)
[2020-02-20] MEDS: Ferrous Sulfate 325 MG TAB PO (08:15)
[2020-02-20] MEDS: Sucralfate 1 GM TAB PO ×2 (08:15→11:59)
[2020-02-20] MEDS: Pantoprazole 40 MG TABCR PO (08:16)
[2020-02-20] MEDS: Rifaximin 550 MG TAB PO (08:16)
[2020-02-20] MEDS: Nystatin POWDER 15 GM JAR TP (08:16)
[2020-02-20] MEDS: Nystatin OINT 15 GM TUBE TP (08:16)
[2020-02-20] MEDS: Normal Saline Flush 10 ML SYR 20 ML IVP (08:17)
[2020-02-20] MEDS: Magnesium Oxide 400 MG TAB PO (09:44)
[2020-02-20] MEDS: Furosemide 40 MG/4 ML VIAL IVP (09:44)
[2020-02-20] MEDS: Spironolactone 50 MG TAB PO (09:44)
[2020-02-20 11:19] VITALS: BP 107/69; PULSE 53; RESP 18; TEMP 36.4; O2SAT 97
--- NOTE | 2020-02-20 11:57 | INDS_ITS ---
Date of service: 02/20/20 Time of Service: 11:21 PT Notes Visit Reasons: SEPSIS SYNDROME, BILATERAL PNEUMONIA Inpatient Physical Therapy Discharge Summary Dates: 02/20/2020 Dates of Service: 02/18/2020 through 02/20/2020 Referring Doctor: Rohan Lee MD PT Orders: PT CONSULT: Limited ability. Extended-stay weakness. Precautions: Fall. Standard. Activity as tolerated. Patient Profile/Admitting Diagnosis: Mayra is a 65-year-old female with past medical history significant for hepatic encephalopathy, diabetes mellitus, and aortic stenosis who presented to the ED on 02/14/2020 with chief presentation of acute onset fever with nausea and loose stools. Patient is diagnosed with group B Streptococcus bacteremia, fluid overload, and iron deficiency anemia. 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; s/p ACDF 2005 Cervical disc disorder with myelopathy (Resolved 09/04/12) Chronic epigastric pain (Chronic 03/23/16) DVT prophylaxis (Inactive) Edema, unspecified (Resolved) 06/28/16 B/L Elev transaminase/LDH (Resolved) Elevation of level of transaminase and lactic acid dehydrogenase (LDH) (Chronic) Epistaxis (Inactive) Esophageal varices with hemorrhage Fever (Inactive) Fever, unknown origin (Resolved) 04/14/16 GI bleed (Resolved) Hepatic encephalopathy Incisional hernia (Resolved 01/15/15) Incisional hernia (Chronic 01/15/15) Mild epistaxis (Resolved) 12/21/15 Sepsis (Inactive) Thyroid nodule (Resolved) right; 2008-[facility] [place]; 2.3cm nodule; neg. biopsy Uninodular goiter Surgical History Colonoscopy - IV Sedation (04/12/13) DR. Bhumika CLAYTON Open Carpal Tunnel release RIGHT OTHER CERVICAL FUS ANT discectomy 2008 [facility] [place]; NEGATIVE THYROID BX S/P carpal tunnel release (Resolved) right S/P cervical spinal fusion (Resolved) anterior; discectomy S/P cervical spinal fusion (Resolved) anterior;discectomy S/P tonsillectomy (Resolved) Status post biopsy of thyroid gland (Resolved) 09/18/08 neg Status post carpal tunnel release (Resolved) Status post cervical spinal arthrodesis (Resolved) Status post tonsillectomy (Resolved) Tonsillectomy Social History/Home Situation: Patient lives with and daughter in a private home with 3 steps to enter and rails on both sides. She is independent with all aspects of ADLs without the need for assistive ambulatory device or adaptive equipment prior to admission. She has not had any falls for the past 12 months. Equipment Owned/DME: None Subjective: Patient states that she has been having a hard time sleeping the past several nights. She denies any nausea, pain, dizziness, and headache throughout session. She states that she has compression garments for her legs that she uses for her chronic swelling. Objective: General Observation: Obese. IV access in right UE. Swelling to bilateral lower extremities with beginning fibrosis palpated with the left more affected than the right. Hemosiderin staining from pre-existing chronic venous insufficiency. Mental Status: Alert and oriented x4 Pain: None ROM: Right Upper Extremity: Shoulder Flexion WFL. Shoulder abduction WFL. Elbow flexion WFL. Wrist flexion WFL. Opening and closing of hand WFL. Left Upper Extremity: Shoulder Flexion WFL. Shoulder abduction WFL. Elbow flexion WFL. Wrist flexion WFL. Opening and closing of hand WFL. Right Lower Extremity: Hip flexion WFL. Hip abduction WFL. Knee flexion WFL. Ankle dorsiflexion WFL. Ankle plantarflexion WFL. Left Lower Extremity: Hip flexion WFL. Hip abduction WFL. Knee flexion WFL. Ankle dorsiflexion WFL. Ankle plantarflexion WFL. Strength: Right Upper Extremity: Shoulder flexors 5/5. Shoulder abductors 5/5. Elbow flexors 5/5. Elbow extensors 5/5. Apple Peeler Operator strong. Left Upper Extremity: Shoulder flexors 5/5. Shoulder abductors 5/5. Elbow flexors 5/5. Elbow extensors 5/5. Apple Peeler Operator strong. Right Lower Extremity: Hip flexors 4/5. Hip abductors 4/5. Knee flexors 4/5. Knee extensors 4/5. Ankle dorsiflexors 4/5. Ankle plantarflexors 4/5. Left Lower Extremity: Hip flexors 4/5. Hip abductors 4/5. Knee flexors 4/5. Knee extensors 4/5. Ankle dorsiflexors 4/5. Ankle plantarflexors 4/5. Sensation: Intact as to pain and pressure on bilateral lower extremities, reports frequent sensation on the soles of the feet and the dorsum of the toes. Bed Mobility/Transfers: Sit to stand independent Stand to sit independent Bed to chair independent Gait: Patient tolerated level surface ambulation of 260 feet x2 without an assistive device with supervision. Reciprocal swing through gait pattern. 1 L of oxygen per minute. No SOB. No LOB. Balance: Static Sitting: Normal Dynamic Sitting: Normal Static Standing: Good Dynamic Standing: Good Assessment: With 1 L of oxygen per minute, patient is able to perform mobility ADL performance without an assistive device without shortness of breath. No LOB. Up-and-down three 4 inch steps and two 4 inch steps while holding onto bilateral rails independently. Goals: Goals X1 week 1. Supine-Sit independent MET 2. Sit-Supine independent MET 3. Sit-Stand independent MET 4. Stand-Sit independent MET 5. Bed-Chair independent MET 6. Chair-Bed independent MET 7. Independent gait on level surface with use of no device for at least 300 feet without report of pain nor dyspnea MET, requires 1 L of oxygen per minute 8. Independent stair negotiation while holding onto bilateral rails for at least 10 steps without report of pain nor dyspnea NOT MET 9. Independent with home exercise program MET 10. Good static and dynamic standing balance/tolerance MET DISCHARGE RECOMMENDATIONS: Home when medically cleared. No equipment needs at this time. TREATMENT CODE/TIME: 11824 x 24 minutes beginning at 11:21 AM. Thank you very much for this referral. Gill Hill PT, DPT, CLT [facility] [place], [place]
--- NOTE | 2020-02-20 13:34 | DSE_ITS ---
Date of service: 02/20/20 Time of Service: 13:34 DS: Diagnosis Discharge Diagnosis (1) Bacteremia due to group B Streptococcus: Status: Acute (2) Gram-positive bacteremia: Status: Acute (3) Complicated UTI (urinary tract infection): Status: Suspected (4) Cirrhosis: Status: Chronic (5) Fluid overload: Status: Acute (6) Portal hypertension: Status: Suspected (7) Hepatic encephalopathy: Status: Chronic (8) Aortic stenosis, severe: Status: Chronic (9) Diabetes mellitus: Status: Chronic (10) Essential hypertension: Status: Chronic (11) Iron deficiency anemia: Status: Acute (12) Nausea: Status: Resolved Discharge Plan Disposition Patient Disposition: HOME W/HOME HEALTH SERVICE Condition: Stable Discharge Details Chief Complaint: Fever Clinical Impression: Fever, Sepsis Reason For Visit: SEPSIS SYNDROME, BILATERAL PNEUMONIA Admit Date/Time: 02/14/20 23:29 Admit Provider: Ruiz Palmer Attending Provider: Ruiz Palmer Primary Care Provider: Malu Baron ED Provider: [facility] Course Hospital Course: This is a 65-year-old lady who presented to the ED with acute onset of fever with nausea and one loose stool the day of admission. She did have rigors with her fever and appeared septic upon presentation to the ED with a high fever, elevated WBC, tachycardia and tachypnea, she was not hypotensive. She underwent a routine septic work up and broad spectrum antibiotics including vanco and zosyn were started. Imaging did reveal bilateral groundglass-like infiltrates consistent with a viral pneumonia without large consolidations, her covid 19 testing was negative. She was also found to have an ecoli urinary tract infection and blood cultures also grew group B strep. There were no valvular vegetations identified on this transthoracic echocardiogram, her EF 60-65%. She was narrowed to cipro for UTI which she is to complete a 7 day course and oxacillin for her bacteremia, completing a 2 week course from negative culture per ID at [facility] recommendations, through March 02, 2020. She slowly improved responding appropriately to the treatment. she remained hemodynamically stable and afebrile. she was eating and drinking well, bowels and bladder functioning. Her lasix dose was decreased at one point as she seemed overdiuresed but soon developed rales and sats 88-92 %. She was given an IV dose of lasix and will be started on spironalactone at discharge. she will have labs drawn on MondayFebruary 23 and will f/u outpatient with pcp. discharge plan discussed with Dr Lee who is in agreement Home Meds and New Rx's Prescriptions: New ciprofloxacin HCl 500 mg Tablet 500 mg PO BID@0600,1800 Qty: 3 RF: 0 nadolol 40 mg tablet 40 mg PO DAILY Qty: 30 RF: 0 oxacillin in dextrose(iso-osm) 2 gram/50 mL piggyback 2,000 mg IV Q4H Qty: 1200 RF: 0 spironolactone 50 mg tablet 50 mg PO DAILY Qty: 30 RF: 0 Continued pantoprazole 40 mg tablet,delayed release (DR/EC) 40 mg PO DAILY Qty: 180 RF: 3 Xifaxan 550 mg tablet 550 mg PO BID Qty: 180 RF: 2 sucralfate 1 gram tablet 1 gm PO AC & HS Qty: 360 RF: 12 pregabalin 100 mg capsule 100 mg PO TID Qty: 270 RF: 4 ferrous sulfate [iron] 325 mg (65 mg iron) tablet 325 mg PO DAILY RF: 0 zinc sulfate 220 MG capsule 220 mg PO DAILY Qty: 90 RF: 3 ondansetron HCl [Zofran] 4 mg tablet 4 mg PO DAILY PRN (Reason: nausea and vomiting) Qty: 90 RF: 3 furosemide 20 mg tablet 40 mg PO DAILY Qty: 180 RF: 12 nystatin 100,000 unit/gram ointment 1 applic TP TID PRNRF: 0 lactulose 20 gram/30 mL Solution 10 g PO BID RF: 0 No Action (DME) blood sugar diagnostic [OneTouch Ultra Test] strip 1 ea Miscellaneous QID Qty: 300 RF: 5 amlodipine 5 mg tablet 5 mg PO DAILY Qty: 90 RF: 5 (DME) pen needle, diabetic [BD Ultra-Fine Orig Pen Needle] 1 EACH needle 1 ea Miscellaneous BID Qty: 180 RF: 3 Discharge Instructions Instructions: Urinary Tract Infection in Women (DC), Bacteremia (DC) Additional Instructions: continue antibiotics every 4 hours through March 02, 2020 as instructed. weight yourself 3-4 times weekly and report weight gain of 3-5 pounds to your primary care provider. Referrals: Malu Baron MD, [place] [Primary Care Provider] - (early next week) Activity:: Activity as Tolerated Equipment/Supplies:: No Equipment Needed Diet:: Low Sodium Discharge Orders Discharge Orders: Discharge Order (Routine); Ordered 02/20/20 Ordered By: Li Guerra Other Ambulatory Orders: Basic Metabolic Panel (Routine) Timeframe: 20200224 Location: None Selected Ordered By: Li Guerra Complete Blood Count w/Diff (Routine) Location: None Selected Ordered By: Li Guerra DS: Summary Status at Discharge Functional status at discharge: uses cane/walker Overall status at discharge: patient is progressing back to baseline Mental Status: mental status grossly normal Speech and Movement: speech and movement normal Mood: congruent mood Affect: normal affect Exam Const General: cooperative and ill appearing chronically Nutritional Appearance: obese Orientation: alert, awake and oriented x3 Eyes Sclera: sclerae normal Resp Effort & Inspection: normal respiratory effort, able to speak in complete sentences, no cough and not labored Auscultation: rales bilaterally at the base and no wheezes Cardio Rate: regular rate Rhythm: regular rhythm Heart Sounds: murmur GI Inspection: large pannus Palpation: soft Skin General skin exam: dry skin (appearance of chronic discoloration to BLE) Neuro General: patient alert, patient awake and patient oriented x3 Extrem General: pedal edema (trace bilateral) Psych Mental Status: mental status grossly normal Speech and Movement: speech and movement normal Mood: congruent mood Affect: normal affect DS: Data Vitals/I&O Vitals and I&O: Vital Signs Temperature 36.4 C L 02/20/20 11:19 Temperature Source Tympanic 02/20/20 11:19 Pulse 53 L 02/20/20 11:19 Pulse Rhythm Regular 02/20/20 10:05 Pulse 81 02/16/20 09:30 Respiratory Rate 18 02/20/20 11:19 Respiratory Effort Non-Labored 02/20/20 10:05 Respiratory Depth Normal 02/20/20 10:05 Respiratory Pattern Normal 02/20/20 10:05 Blood Pressure 107/69 02/20/20 11:19 Blood Pressure Mean 61 02/16/20 09:07 Blood Pressure Position Supine 02/16/20 00:05 Pulse Oximetry 97 02/20/20 11:19 Oxygen Delivery Method Nasal Cannula 02/20/20 11:19 Oxygen Flow Rate 1 02/20/20 11:19 Pain Level 0 02/20/20 11:19 Comment 02/20/20 03:31 Intake & Output 02/19/20 02/20/20 02/20/20 23:59 11:59 23:59 Intake Total 662.5 / 1140.0 580 / 830 250 / 830 Balance 662.5 / 1040.0 580 / 830 250 / 830 Weight 113.4 kg Intake: IV 182.5 / 420.0 100 / 100 Oral 480 / 720 480 / 730 250 / 730 Other: Urine Color Pale Yellow Yellow Urine Appearance Clear Clear Urine Odor None Comment urine mixed with stool unable to measure Stool Size Large Moderate Stool Characteristics Soft Soft Formed Formed Voiding Methods Bedside Commode Bedside Commode Data Completed and Pending Labs on day of discharge: Labs from last 24 hours 02/20/20 02/20/20 06:20 06:20 WBC 5.12 RBC 3.33 L Hgb 10.9 L Hct 32.9 L MCV 98.8 H MCH 32.7 MCHC 33.1 RDW 14.5 Plt Count 95 L MPV 9.3 Sodium 140 Potassium 3.9 Chloride 104 Carbon Dioxide 36.2 H Anion Gap -0.2 L BUN 24 H Creatinine 1.00 Estimated GFR/1.73 m2 56.00 Glucose 109 H Calcium 8.1 L Total Bilirubin 2.6 H AST 67 H ALT 51 Alkaline Phosphatase 137 H Total Protein 5.1 L Albumin 1.8 L Preliminary micro results at discharge 02/17/20 07:20 Blood Culture - Preliminary Blood NO GROWTH 72 HOURS [facility] Medical History Abdominal pain, chronic, epigastric (Resolved 03/23/16) Advance directive on file (Inactive) Annual physical exam (Resolved 02/22/18) Bleeding esophageal varices (Resolved 03/10/16) Breast mass (Inactive) CAP (community acquired pneumonia) (Inactive) Carpal tunnel syndrome (Resolved) right; s/p release Cellulitis (Inactive) Cervical disc disorder with myelopathy (Resolved) 09/04/12 C6-C7; s/p ACDF 2005 Cervical disc disorder with myelopathy (Resolved 09/04/12) Chronic epigastric pain (Chronic 03/23/16) DVT prophylaxis (Inactive) Edema, unspecified (Resolved) 06/28/16 B/L Elev transaminase/LDH (Resolved) Elevation of level of transaminase and lactic acid dehydrogenase (LDH) (Chronic) Epistaxis (Inactive) Esophageal varices with hemorrhage Fever (Inactive) Fever, unknown origin (Resolved) 04/14/16 GI bleed (Resolved) Hepatic encephalopathy Incisional hernia (Resolved 01/15/15) Incisional hernia (Chronic 01/15/15) Mild epistaxis (Resolved) 12/21/15 Sepsis (Inactive) Thyroid nodule (Resolved) right; 2008-[facility] [place]; 2.3cm nodule; neg. biopsy Uninodular goiter Surgical History Colonoscopy - IV Sedation (04/12/13) DR. Bhumika CLAYTON Open Carpal Tunnel release RIGHT PROCEDURES OTHER CERVICAL FUS ANT discectomy 2008 [facility] [place]; NEGATIVE THYROID BX S/P carpal tunnel release (Resolved) right S/P cervical spinal fusion (Resolved) anterior; discectomy S/P cervical spinal fusion (Resolved) anterior;discectomy S/P tonsillectomy (Resolved) Status post biopsy of thyroid gland (Resolved) 09/18/08 neg Status post carpal tunnel release (Resolved) Status post cervical spinal arthrodesis (Resolved) Status post tonsillectomy (Resolved) Tonsillectomy Family History Mother Pancreatic cancer Father Diabetes Essential hypertension Stroke Sister Heart disease Brother Bone cancer Liver cancer Maternal Grandfather No problems noted. Paternal Grandfather No problems noted. Maternal Grandmother , OLD AGE at age 89. No problems noted. Paternal Grandmother Breast cancer Sister Diabetes Colon cancer Rectal cancer Sister Diabetes Son No problems noted. Son No problems noted. Daughter No problems noted. Daughter Alcohol abuse Asthma Social History Smoking/Tobacco Use Status: Former Tobacco Use Alcohol Intake: never Drug use: Never Household members: spouse and children Housing: house Communication Needs: None Do you need help understanding health information?: Rarely Pets and animals: Yes Pets and animals: dog(s) Sexually active: No Do you think of yourself as: straight/heterosexual Current gender identity: female What is your relationship status?: How often do you talk on the phone with friends or family?: three or more times per week How often do you get together with friends or relatives?: once per week How often do you attend episcopalian or gnosticist services?: 1-3 times per year Do you belong to any clubs or organized social groups?: no Panel score (0-1 are the most socially isolated patients): 2 What type of physical activity do you participate in: decline to answer Duration: < 15 minutes/day Frequency: 1-2 times per week Lyubov/Sikhism: Sikh Special lyubov needs: No Seatbelt use: always Helmet use: No Drive intox or ride w/intox starting gate driver: No Do you feel safe at home: Yes Do you feel safe in your relationship?: Yes
[2020-02-20 13:47] VITALS: PULSE 60; PULSE 63; PULSE 76; RESP 20; RESP 24; O2SAT 89; O2SAT 93; O2SAT 94
[2020-02-20 14:00] VITALS: O2SAT 94
--- NOTE | 2020-02-20 14:37 | PDOC.HHF2F_ITS ---
Home Health Certification Home Health Certification: 1. Encounter Date and Reason I certify that DIPIKA OLVERA was seen by Li Guerra on 02/20/20 and that I had a [id number] encounter with this patient that meets the physician face to face encounter requirements. 2. Clinical Findings Supporting Skilled Need and Homebound Status I certify that home health services are medically necessary, include either intermittent [place] [facility] and/or physical/speech therapy, and that this patient is homebound in that absences from the home require considerable and taxing effort and are infrequent or of short duration, or are attributable to the need to receive medical care. [X] (a) Attached documentation from encounter provides clinical findings supporting skilled need and homebound status (including what assistance patient requires to leave the home). The encounter with the patient was in whole, or in part, for the following medical condition, which is the primary reason for home health care: SEPSIS SYNDROME, BILATERAL PNEUMONIA Mcc:routine nursing evaluation, medication oversight, and care Homebound: patient is unable to leave the house every 4 hours around the clock for infusion therapy. 3. Certification and Authentication I certify that I composed the above information based on my clinical judgement relating to this patient's medical condition and, if applicable, clinical findings communicated to me by the NPP or inpatient physician who performed the Home Health Referral. All further orders will be obtained through (Community Based Physician - PCP)
--- NOTE | 2020-02-20 14:52 | CMDISCH_ITS ---
LACE Index Scoring Tool - Questions: Length of Stay (in days): 7 - 13 Acuity (Admit via E.D.?): Yes Comorbidities: Any Tumor E.D. Visits: 2 - Answers: Total Score: 12 Risk of Readmission: High Risk Care Management Discharge Reason for Hospitalization: Sepsis syndrome, bilateral pneumonia Discharge Plan: Mayra will return home when ready per MD, she will have new orders for VNA/RN ([facility]) and [facility] home infusion services. She will follow up with her PCP and plan of care including lab draws. She will transport via private vehicle with her daughter, Divya. Patient/Family Education Needs: Review discharge instructions, discuss Ask Me Three. Services Needed at Discharge: Home Health Care Services (VNA RN ), Infusion Therapy
== END 2020-02-20 15:05 | disposition home health service (06) | DRG 871 ==
LOC: ER 23:38 → ICU 02-15 01:25 → MS 02-20 13:36 → ICU 02-21 09:48
PROVIDERS: Internal Medicine; Admitting Provider Family Medicine; Emergency Provider Registered Nurse Emergency; PCP Family Medicine; Visit Provider Internal Medicine
DX: A40.1 Sepsis due to streptococcus, group B (principal); J12.9 Viral pneumonia, unspecified; N39.0 Urinary tract infection, site not specified; Z16.11 Resistance to penicillins; Z16.19 Resistance to other specified beta lactam antibiotics; K76.6 Portal hypertension; Z68.42 Body mass index [BMI] 45.0-49.9, adult; N17.9 Acute kidney failure, unspecified; R78.81 Bacteremia; B96.20 Unspecified Escherichia coli [E. coli] as the cause of diseases classified elsewhere; B95.1 Streptococcus, group B, as the cause of diseases classified elsewhere; R79.1 Abnormal coagulation profile; R09.02 Hypoxemia; K74.69 Other cirrhosis of liver; E87.70 Fluid overload, unspecified; K72.90 Hepatic failure, unspecified without coma; I35.0 Nonrheumatic aortic (valve) stenosis; E11.9 Type 2 diabetes mellitus without complications; D50.9 Iron deficiency anemia, unspecified; I10 Essential (primary) hypertension; R01.1 Cardiac murmur, unspecified; K76.0 Fatty (change of) liver, not elsewhere classified; E66.01 Morbid (severe) obesity due to excess calories; Z71.3 Dietary counseling and surveillance
CPT/HCPCS: 0296T; 36410; 36415; 76770; 80048; 80053; 84145; 85027; 87040; 87077; 87449; 93306; 96361; 96365; 96366; 96367; 96368; 97162; 97530; 99223; 99233; 99239; 99285; U0003; 71045; 81003; 81015; 82607; 82728; 82746; 83036; 83540; 83550; 83605; 83735; 83880; 84443; 85025; 85379; 85610; 86140; 87086; 87186; J0696; J1644; J1940; J2543; J2700; J3475

== ENCOUNTER 2020-02-24 17:22 | Outpatient (REF) | payer MEDICARE, BC, SELFPAY ==
[2020-02-24 17:47] LABS: ALT 59 U/L (14-59); AST 71 U/L (15-37); Albumin 2.2 g/dL (3.4-5.0); Alkaline Phosphatase 188 U/L (46-116); Anion Gap 3.1 mmol/L (3-11); BUN 21 mg/dL (7-18); Bilirubin, Total 2.8 mg/dL (0.2-1.0); CO2 35.9 mmol/L (21.0-32.0); CREATININE 0.94 mg/dL (0.55-1.02); Calcium 8.8 mg/dL (8.5-10.1); Chloride 101 mmol/L (98-107); Glucose 75 mg/dL (74-106); Potassium 4.2 mmol/L (3.5-5.1); Sodium 140 mmol/L (136-145); Total Protein 5.6 g/dL (6.4-8.2)
[2020-02-24 18:01] LABS: Abs Immature Grans 0.03 k/cumm (0.0-0.09); Absolute Basophil Count 0.06 k/cumm (0.0-0.2); Absolute Eosinophil Count 0.27 k/cumm (0.0-0.7); Absolute Lymphocyte Count 1.58 k/cumm (1.2-3.4); Absolute Neutrophil Count 4.52 k/cumm (1.2-6.7); Basophils % 0.8; Eosinophils % 3.8; HCT 35.9 % (36.0-46.0); HGB 12.3 g/dL (12.0-15.5); Immature Grans % 0.4 %; Lymphocytes % 22.1; Mean Corp. HGB Concentration 34.3 g/dL (32.0-36.0); Mean Corpuscular Hemoglobin 33.2 pg (27.0-33.0); Mean Corpuscular Volume 96.8 fL (80-95); Mean Platelet Volume 9.9 fL (8.0-11.0); Monocytes % 9.8; Neutrophils % 63.1; Platelet Count 124 x1000/uL (130-400); RBC 3.71 m/cumm (4.00-5.20); RBC Distribution Width 14.9 % (11.7-14.6); White Blood Cell Count 7.16 k/cumm (4.4-10.8)
== END 2020-02-24 17:42 ==
LOC: NCHCN 17:22
PROVIDERS: PCP Family Medicine; Visit Provider Internal Medicine
DX: E11.9 Type 2 diabetes mellitus without complications (principal); R74.0 Nonspecific elevation of levels of transaminase and lactic acid dehydrogenase [LDH]; R78.81 Bacteremia; Z79.2 Long term (current) use of antibiotics; A41.9 Sepsis, unspecified organism
CPT/HCPCS: 80053; 85025

== ENCOUNTER 2020-03-02 12:41 | Outpatient (REF) | payer MEDICARE, BC, SELFPAY ==
[2020-03-02 13:18] LABS: Abs Immature Grans 0.01 k/cumm (0.0-0.09); Absolute Basophil Count 0.08 k/cumm (0.0-0.2); Absolute Lymphocyte Count 1.21 k/cumm (1.2-3.4); Absolute Monocyte Count 0.43 k/cumm (0.11-0.7); Basophils % 1.9; Eosinophils % 4.8; HCT 33.3 % (36.0-46.0); Immature Grans % 0.2 %; Lymphocytes % 29.3; Mean Corpuscular Hemoglobin 32.4 pg (27.0-33.0); Mean Corpuscular Volume 98.2 fL (80-95); Mean Platelet Volume 10.3 fL (8.0-11.0); Monocytes % 10.4; Neutrophils % 53.4; Platelet Count 110 x1000/uL (130-400); RBC 3.39 m/cumm (4.00-5.20); RBC Distribution Width 14.3 % (11.7-14.6); White Blood Cell Count 4.13 k/cumm (4.4-10.8)
[2020-03-02 13:20] LABS: Absolute Neutrophil Count 2.21 k/cumm (1.2-6.7)
[2020-03-02 13:34] LABS: ALT 56 U/L (14-59); AST 71 U/L (15-37); Albumin 2.1 g/dL (3.4-5.0); Alkaline Phosphatase 194 U/L (46-116); Anion Gap 3.4 mmol/L (3-11); BUN 19 mg/dL (7-18); Bilirubin, Total 1.9 mg/dL (0.2-1.0); CO2 32.6 mmol/L (21.0-32.0); CREATININE 1.01 mg/dL (0.55-1.02); Calcium 8.7 mg/dL (8.5-10.1); Chloride 103 mmol/L (98-107); Estimated GFR 55.36 (mL/min/1.73m2); Glucose 128 mg/dL (74-106); Potassium 4.5 mmol/L (3.5-5.1); Sodium 139 mmol/L (136-145); Total Protein 5.7 g/dL (6.4-8.2)
== END 2020-03-02 13:01 ==
LOC: LBN 12:41
PROVIDERS: PCP Family Medicine; Visit Provider Family Medicine
DX: E11.9 Type 2 diabetes mellitus without complications (principal); I10 Essential (primary) hypertension; B95.1 Streptococcus, group B, as the cause of diseases classified elsewhere; A40.1 Sepsis due to streptococcus, group B; Z79.2 Long term (current) use of antibiotics
CPT/HCPCS: 80053; 85025

== ENCOUNTER 2020-04-13 19:57 | Inpatient (IN) | payer MEDICARE, BC, SELFPAY ==
[2020-04-13] VITALS (21 sets, daily range): BP systolic 91–138; BP diastolic 31–76; PULSE 86–96; RESP 16–20; TEMP 37.1–37.7; O2SAT 92–96
--- NOTE | 2020-04-13 20:12 | ED.GENADUL_ITS ---
Discharge Plan Disposition Patient Disposition: [facility] Condition: Stable Discharge Details Chief Complaint: GenMedical Clinical Impression: Diabetic foot infection Primary Care Provider: Malu Baron ED Provider: Chilo Linares Home Meds and New Rx's Prescriptions: No Action (DME) blood sugar diagnostic [OneTouch Ultra Test] strip 1 ea Miscellaneous QID Qty: 300 RF: 5 Xifaxan 550 mg tablet 550 mg PO BID Qty: 180 RF: 2 sucralfate 1 gram tablet 1 gm PO AC & HS Qty: 360 RF: 12 pregabalin 100 mg capsule 100 mg PO TID Qty: 270 RF: 4 ferrous sulfate [iron] 325 mg (65 mg iron) tablet 325 mg PO DAILY RF: 0 furosemide 20 mg tablet 40 mg PO DAILY Qty: 180 RF: 12 pantoprazole 40 mg tablet,delayed release (DR/EC) 40 mg PO DAILY Qty: 180 RF: 3 amlodipine 5 mg tablet 5 mg PO DAILY Qty: 90 RF: 5 zinc sulfate 220 MG capsule 220 mg PO DAILY Qty: 90 RF: 3 (DME) pen needle, diabetic [BD Ultra-Fine Orig Pen Needle] 1 EACH needle 1 ea Miscellaneous BID Qty: 180 RF: 3 ondansetron HCl [Zofran] 4 mg tablet 4 mg PO DAILY PRN (Reason: nausea and vomiting) Qty: 90 RF: 3 nystatin 100,000 unit/gram ointment 1 applic TP TID PRNRF: 0 lactulose 20 gram/30 mL Solution 10 g PO BID RF: 0 nadolol 40 mg tablet 40 mg PO DAILY Qty: 30 RF: 0 oxacillin in dextrose(iso-osm) 2 gram/50 mL piggyback 2,000 mg IV Q4H Qty: 1200 RF: 0 spironolactone 50 mg tablet 50 mg PO DAILY Qty: 30 RF: 0 Medical Decision Making 65 yo female with hx of cirrhosis, , dm who comes in with a day of wosening left leg pain specifically in lower leg and foot for a day along with chills and subjective fevers. Arrives with rigors and has oral temp of 99.8, otherwise hd stable. She has swelling of left leg compared to the right leg from the knee down and it is warm to touch with erythema and does have a small ulcer in dorsal mid left foot with no appreciated tunneling, no crepitus so doubt nec fasc. Suspect diabetic foot and will tx with vanc and zosyn and obtain labs and xrays of the foot. No cough or respiratory symptoms. She doesn't appear hypovolemic and has so will hold on IVF at this time pt stable, labs with elevated lactate and procalcitonin otherwise no significant changes from prior labs. cxr still shows some possible infiltrates though feel this is unlikely pna given lack of respiratory symptoms. Foot xray did not show evidence to suggest osteo and does show soft tissue swelling consistent with cellulitis. Spoke with Dr. vergara who accepts for admission Differential Diagnosis Differential Diagnosis: diabetic foot infection, osteo, cellulitis Medical Records Medical records reviewed: Yes I reviewed the patient's medical records. Imaging Data Radiologic Study: Attestation: I personally reviewed and interpreted this imaging study as follows: Imaging: X-Ray Radiologist's impression: IMPRESSION: 1. No radiographic evidence of osteomyelitis or septic joint. 2. Soft tissue swelling throughout the left foot although most pronounced in the forefoot and medial toes suggesting cellulitis. No foreign body. 3. 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 4. There is a moderate-sized plantar calcaneal spur without evidence of erosion or fracture Radiologic Study #2: Attestation: I personally reviewed and interpreted this imaging study as follows: Imaging: X-Ray Radiologist's impression: IMPRESSION: 1. Mild perihilar interstitial prominence bilaterally with patchy mild right perihilar ground-glass attenuation which may represent early/mild right perihilar infection/pneumonia or edema. 2. Moderate central vascular congestion with borderline mild cardiomegaly. Lab Data Lab results reviewed: Yes I reviewed the patient's lab results. HPI General Mode of arrival: wheelchair . Date/Time Provider Initiated Documentation: 04/13/20 19:59 . Information obtained by: patient . History of Present Illness 65 year old F presents to the emergency department with the chief complaint of left leg swelling, described as moderate, and it has been constant. No relieving factors improve symptom(s), No exacerbating factors reported . Patient did receive the following treatments prior to arrival, none Related Data Home Medications Medication Instructions Recorded Confirmed zinc sulfate 220 mg PO DAILY #90 tab-cap 01/10/17 03/02/20 pen needle, diabetic [BD #180 12/18/17 01/14/20 Ultra-Fine Orig Pen Needle] ferrous sulfate 325 mg (65 mg 325 mg PO DAILY tab 06/11/18 03/02/20 iron) tablet blood sugar diagnostic #300 strip 09/13/18 03/02/20 ondansetron HCl 4 mg tablet 4 mg PO DAILY PRN #90 tab-cap 07/01/19 03/02/20 pregabalin 100 mg capsule 100 mg PO TID #270 cap 09/03/19 03/02/20 rifaximin 550 mg tablet 550 mg PO BID #180 tab 11/12/19 03/02/20 sucralfate 1 gram tablet 1 gm PO AC & HS #360 tab 11/12/19 03/02/20 amlodipine 5 mg tablet 5 mg PO DAILY #90 tab 01/14/20 03/02/20 nystatin 1 applic TP TID PRN 02/14/20 03/02/20 lactulose 10 g PO BID 02/18/20 03/02/20 nadolol 40 mg PO DAILY #30 tab 02/20/20 03/02/20 oxacillin in dextrose(iso-osm) 2,000 mg IV Q4H #1200 ml 02/20/20 03/02/20 spironolactone 50 mg PO DAILY #30 tab 02/20/20 03/02/20 furosemide 20 mg tablet 40 mg PO DAILY #180 cap 03/02/20 03/02/20 pantoprazole 40 mg tablet,delayed 40 mg PO DAILY #180 tab 03/02/20 03/02/20 release Previous Rx's Medication Instructions Recorded pen needle, diabetic [BD #180 12/18/17 Ultra-Fine Orig Pen Needle] blood sugar diagnostic #300 strip 09/13/18 ondansetron HCl 4 mg tablet 4 mg PO DAILY PRN #90 tab-cap 07/01/19 pregabalin 100 mg capsule 100 mg PO TID #270 cap 09/03/19 rifaximin 550 mg tablet 550 mg PO BID #180 tab 11/12/19 sucralfate 1 gram tablet 1 gm PO AC & HS #360 tab 11/12/19 amlodipine 5 mg tablet 5 mg PO DAILY #90 tab 01/14/20 nadolol 40 mg PO DAILY #30 tab 02/20/20 oxacillin in dextrose(iso-osm) 2,000 mg IV Q4H #1200 ml 02/20/20 spironolactone 50 mg PO DAILY #30 tab 02/20/20 furosemide 20 mg tablet 40 mg PO DAILY #180 cap 03/02/20 pantoprazole 40 mg tablet,delayed 40 mg PO DAILY #180 tab 03/02/20 release Allergies Allergy/AdvReac Type Severity Reaction Status Date / Time gabapentin Allergy Intermediate Local Unverified 04/13/20 20:10 reaction on skin lisinopril AdvReac Itching Verified 04/13/20 20:10 General Stated Complaint: GenMedical JÚNIOR: 3 Review of Systems All systems reviewed & are unremarkable except as noted in HPI and below Cardiovascular Cardiovascular: Denies chest pain and Denies dyspnea Respiratory Respiratory: Denies cough and Denies dyspnea Gastrointestinal Gastrointestinal: Denies abdominal pain, Denies nausea and Denies vomiting [facility] Social History (Updated 03/04/20 @ 12:44 by Shante Pompa) Smoking/Tobacco Use Status: Former Tobacco Use Tobacco: How many years used: 2 Second Hand Exposure: Yes Alcohol Intake: never Drug use: Never Counseling given: No Household members: spouse and children Housing: house Communication Needs: None Do you need help understanding health information?: Never Pets and animals: Yes Pets and animals: dog(s) Sexually active: No Do you think of yourself as: straight/heterosexual Current gender identity: female What is your relationship status?: How often do you talk on the phone with friends or family?: three or more times per week How often do you get together with friends or relatives?: three or more times per week How often do you attend hoahaoism or hindu services?: 1-3 times per year Do you belong to any clubs or organized social groups?: no Panel score (0-1 are the most socially isolated patients): 2 What type of physical activity do you participate in: none Lyubov/Pentecostalism: Adventism Special lyubov needs: No Seatbelt use: always Helmet use: No Drive intox or ride w/intox skidder driver: No Do you feel safe at home: Yes Do you feel safe in your relationship?: Yes Exam Const General: no acute distress Orientation: alert HENMT Head: normal to inspection Ears: external ears normal General nose exam: external nose normal Mouth: moist mucous membranes Eyes General: appearance normal, both eyes and all related structures Neck Neck: normal visual inspection Resp Effort & Inspection: normal respiratory effort and able to speak in complete sentences Cardio Rate: regular rate Skin General skin exam: elasticity normal Neuro General: patient alert and patient oriented x3 Extrem General: capillary refill normal Psych Mental Status: mental status grossly normal Course Vital Signs Vital signs: Vital Signs Temperature 37.7 C H 04/13/20 20:06 Pulse 96 H 04/13/20 20:06 Respiratory Rate 16 04/13/20 20:06 Blood Pressure 120/54 L 04/13/20 20:06 Pulse Oximetry 93 L 04/13/20 20:06 Temperature 37.7 C H 04/13/20 20:06 Temperature Source Oral 04/13/20 20:06 Pulse 96 H 04/13/20 20:06 Respiratory Rate 16 04/13/20 20:06 Blood Pressure 120/54 L 04/13/20 20:06 Blood Pressure Position Supine 04/13/20 20:06 Pulse Oximetry 93 L 04/13/20 20:06 Oxygen Delivery Method Room Air 04/13/20 20:06 Oxygen Flow Rate 0 04/13/20 20:06 Pain Level 10 04/13/20 20:06 Comment 04/13/20 20:06 Lab/Test Results Lab/Test Results: 04/13/20 20:02 Blood Blood Culture - Pending 04/13/20 20:02 Blood Blood Culture - Pending
--- NOTE | 2020-04-13 20:15 | DI.RAD_ITS ---
EXAM: XR FOOT LT COMPLETE CLINICAL HISTORY: ?osteomyelitis. TECHNIQUE: 2D digital imaging was performed. COMPARISON: CR XR foot LT complete from 06/14/2018 FINDINGS: BONES: No acute fracture is present. A heel spur and interosseous lipoma of the calcaneus are again noted. There is a stable the clip in the in the 1st metatarsal head. There are degenerative changes . No destructive lesions are seen. The bones are osteopenic. JOINTS: No dislocation present. SOFT TISSUE: Soft tissue swelling is noted. There is no abnormal gas collection or foreign body. IMPRESSION: Soft tissue swelling. No evidence osteomyelitis. No significant change from 2018. DATA REPOSITORY: RADIATION DOSE DELIVERED:
--- NOTE | 2020-04-13 20:26 | NUR.NOTE ---
Nursing Note: Pants removed with assistance from Dr Linares to assess leg swelling. Removed zippered compression socks to find severe swelling to left extremity and a bandage to top of left foot. Yellow drainage noted on bandage and blister appearance on top of foot. Unable to separate toes to assess further due to patient's complaint of pain.
--- NOTE | 2020-04-13 20:30 | DI.RAD_ITS ---
EXAM: XR CHEST 2V PA LATERAL CLINICAL HISTORY: fever TECHNIQUE: 2D digital imaging was performed. COMPARISON: CR,XR XR PORTABLE CHEST AP from 02/14/2020 FINDINGS: The exam is limited by the patient's body habitus and technique. Heart size at the upper limits of n ormal. There is calcification at the aortic arch. There is some vascular prominence and increased i nterstitial markings which could indicate mild CHF. No focal consolidation or effusion is seen. The re is hardware in the lower cervical spine. IMPRESSION: Question of mild pulmonary edema. No focal infiltrate.
[2020-04-13] MEDS: PIPERACILLIN/TAZO 4.5 GM in Normal Saline 100 ML IVPB (21:14)
[2020-04-13 21:20] LABS: Abs Immature Grans 0.03 k/cumm (0.0-0.09); Absolute Basophil Count 0.02 k/cumm (0.0-0.2); Absolute Eosinophil Count 0.03 k/cumm (0.0-0.7); Absolute Lymphocyte Count 0.73 k/cumm (1.2-3.4); Absolute Monocyte Count 0.44 k/cumm (0.11-0.7); Basophils % 0.2; Eosinophils % 0.3; HCT 35.7 % (36.0-46.0); HGB 12.1 g/dL (12.0-15.5); Immature Grans % 0.3 %; Lymphocytes % 6.4; Mean Corp. HGB Concentration 33.9 g/dL (32.0-36.0); Mean Corpuscular Hemoglobin 30.8 pg (27.0-33.0); Mean Corpuscular Volume 90.8 fL (80-95); Monocytes % 3.9; Neutrophils % 88.9; RBC 3.93 m/cumm (4.00-5.20); RBC Distribution Width 13.9 % (11.7-14.6); White Blood Cell Count 11.37 k/cumm (4.4-10.8)
[2020-04-13 21:21] LABS: Absolute Neutrophil Count 10.11 k/cumm (1.2-6.7); Platelet Count 100 x1000/uL (130-400)
[2020-04-13 21:22] LABS: Ammonia < 10 umol/L (11-32); INR 1.2 (0.9-1.1); PTT Activated 28.3 sec (21.0-31.4); Prothrombin Time 12.2 sec (9.3-11.0)
[2020-04-13 21:23] LABS: ALT 29 U/L (14-59); AST 45 U/L (15-37); Albumin 2.4 g/dL (3.4-5.0); Alkaline Phosphatase 164 U/L (46-116); Anion Gap 6.6 mmol/L (3-11); BUN 15 mg/dL (7-18); Bilirubin, Total 4.1 mg/dL (0.2-1.0); CO2 31.4 mmol/L (21.0-32.0); CREATININE 1.02 mg/dL (0.55-1.02); Calcium 8.7 mg/dL (8.5-10.1); Chloride 102 mmol/L (98-107); Estimated GFR 54.73 (mL/min/1.73m2); Glucose 168 mg/dL (74-106); Potassium 3.4 mmol/L (3.5-5.1); Sodium 140 mmol/L (136-145); Total Protein 6.3 g/dL (6.4-8.2)
[2020-04-13 21:29] LABS: Magnesium 1.6 mg/dL (1.8-2.4); NT-proBNP 648 pg/mL (<300)
--- NOTE | 2020-04-13 21:53 | DI.VRAD_ITS ---
PROCEDURE INFORMATION: Exam: XR Left Foot Complete Exam date and time: 04/13/2020 9:39 PM Age: 65 years old Clinical indication: Pain; Foot; Left; Patient HX: ? Osteomyelitis TECHNIQUE: Imaging protocol: XR Left foot. Views: 3 or more views. COMPARISON: CR XR foot LT complete 06/14/2018 1:33 PM FINDINGS: Bones/joints: Osteopenia. No fractures are identified. Extrinsic soft tissue interfaces are felt to be responsible for the lucencies in the 4th toe proximal phalangeal base seen on the AP view. There are no radiographic changes suggestive of osteomyelitis or septic joint. Chronic articular erosion is seen in the 1st metatarsal head centrally. There is a moderate-sized plantar calcaneal spur without evidence of erosion or fracture. Soft tissues: Soft tissue swelling throughout the left foot and ankle, most pronounced in the forefoot and medial toes. 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 Complicated bone cyst would be an additional possibility. No aggressive features. IMPRESSION: 1. No radiographic evidence of osteomyelitis or septic joint. 2. Soft tissue swelling throughout the left foot although most pronounced in the forefoot and medial toes suggesting cellulitis. No foreign body. 3. 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 4. There is a moderate-sized plantar calcaneal spur without evidence of erosion or fracture. Dictated and Authenticated by: Noel Pascal MD. Ordering:ANJALI Woo MD
--- NOTE | 2020-04-13 21:55 | DI.VRAD_ITS ---
PROCEDURE INFORMATION: Exam: XR Chest, 2 Views Exam date and time: 04/13/2020 9:40 PM Age: 65 years old Clinical indication: Fever; Prior surgery TECHNIQUE: Imaging protocol: XR of the chest Views: 2 views. COMPARISON: CR XR PORTABLE CHEST AP 02/14/2020 10:25 PM FINDINGS: Lungs: Normal pulmonary expansion. Moderate central vascular congestion. Mild bilateral bronchial wall thickening and bilateral perihilar interstitial prominence which could relate to interstitial edema or bronchitis. Patchy mild right perihilar ground-glass alveolar attenuation could represent early/mild perihilar pneumonia or edema. Pleural space: No pleural effusion. No pneumothorax. Heart/Mediastinum: Heart size upper limits of normal. No tracheal/mediastinal shift. Bones/joints: No acute osseous abnormalities are identified. Lower cervical fusion hardware without gross hardware complication or change. IMPRESSION: 1. Mild perihilar interstitial prominence bilaterally with patchy mild right perihilar ground-glass attenuation which may represent early/mild right perihilar infection/pneumonia or edema. 2. Moderate central vascular congestion with borderline mild cardiomegaly. Dictated and Authenticated by: Noel Pascal MD. Ordering:ANJALI Woo MD
[2020-04-13] MEDS: VANCOMYCIN 1,500 MG in Normal Saline 250 ML 166.6666 MG IVPB (22:05)
--- NOTE | 2020-04-13 22:12 | W.PM.HP.N ---
Date of service: 04/13/20 Time of Service: 22:12 Assessment and Plan Assessment and plan (1) Cellulitis: Status: Acute Assessment and plan: Cellulitis in setting of diabetic foot ulcer (I think DVT quite unlikely but will check d-Dimer and unless negative will give dose Lovenox until U/S available). Hemodynamics appear satisfactory. Will continue Vanco/Zosyn pending cxx. DM: SS coverage HTN: hold Amlodipine until certain hemodynamics stable Cirrhosis: no change , with h/o fluid overload: no change Remains Full Code History of Present Illness History of Present Illness Chief Complaint: foot pain Narrative: 65 female with h/o DM and cirrhosis, here end of January with Strep bacteremia, source not clearly identified, s/p 2 week course Abx. Here now with unspecified period of LLE pain, increasing over past day, along with fever and rigors. In ER temp 99.7, WBC 11K and apparent cellulitis LLE and foot ulcer noted. Film neg osteo. Given Vanco and Zosyn and admitted for further management. Review of Systems All systems reviewed & are unremarkable except as noted in HPI and below PFSH Medical History Abdominal pain, chronic, epigastric (Resolved 03/23/16) Advance directive on file (Inactive) Annual physical exam (Resolved 02/22/18) Bleeding esophageal varices (Resolved 03/10/16) Breast mass (Inactive) CAP (community acquired pneumonia) (Inactive) Carpal tunnel syndrome (Resolved) right; s/p release Cellulitis (Inactive) Cervical disc disorder with myelopathy (Resolved) 09/04/12 C6-C7; s/p ACDF 2006 Cervical disc disorder with myelopathy (Resolved 09/04/12) Chronic epigastric pain (Chronic 03/23/16) DVT prophylaxis (Inactive) Edema, unspecified (Resolved) 06/28/16 B/L Elev transaminase/LDH (Resolved) Elevation of level of transaminase and lactic acid dehydrogenase (LDH) (Chronic) Epistaxis (Inactive) Esophageal varices with hemorrhage Fever (Inactive) Fever, unknown origin (Resolved) 04/14/16 GI bleed (Resolved) Hepatic encephalopathy Incisional hernia (Resolved 01/15/15) Incisional hernia (Chronic 01/15/15) Mild epistaxis (Resolved) 12/21/15 Sepsis (Inactive) Thyroid nodule (Resolved) right[place] [place] 2.3[place] nod[place]; neg. biopsy Uninodular goiter Surgical History Colonoscopy - IV Sedation (04/12/13) DR. Bhumika CLAYTON Open Carpal Tunnel release RIGHT PROCEDURES OTHER CERVICAL FUS [place] [facility] [place] NEGATIVE THYROID BX S/P carpal tunnel release (Resolved) right S/P cervical spinal fusion (Resolved) anterior; discectomy S/P cervical spinal fusion (Resolved) anterior;discectomy S/P tonsillectomy (Resolved) Status post biopsy of thyroid gland (Resolved) 09/18/08 neg Status post carpal tunnel release (Resolved) Status post cervical spinal arthrodesis (Resolved) Status post tonsillectomy (Resolved) Tonsillectomy Family History Mother Pancreatic cancer Father Diabetes Essential hypertension Stroke Sister Heart disease Brother Bone cancer Liver cancer Maternal Grandfather No problems noted. Paternal Grandfather No problems noted. Maternal Grandmother , OLD AGE at age 89. No problems noted. Paternal Grandmother Breast cancer Sister Diabetes Colon cancer Rectal cancer Sister Diabetes Son No problems noted. Son No problems noted. Daughter No problems noted. Daughter Alcohol abuse Asthma Social History Smoking/Tobacco Use Status: Former Tobacco Use Tobacco: How many years used: 2 Second Hand Exposure: Yes Alcohol Intake: never Drug use: Never Counseling given: No Household members: spouse and children Housing: house Communication Needs: None Do you need help understanding health information?: Never Pets and animals: Yes Pets and animals: dog(s) Sexually active: No Do you think of yourself as: straight/heterosexual Current gender identity: female What is your relationship status?: How often do you talk on the phone with friends or family?: three or more times per week How often do you get together with friends or relatives?: three or more times per week How often do you attend rastafarian or christianity services?: 1-3 times per year Do you belong to any clubs or organized social groups?: no Panel score (0-1 are the most socially isolated patients): 2 What type of physical activity do you participate in: none Lyubov/Anabaptist: Protestant Special lyubov needs: No Seatbelt use: always Helmet use: No Drive intox or ride w/intox driver/sales workers: No Do you feel safe at home: Yes Do you feel safe in your relationship?: Yes Meds Home Medications and Allergies Home Medications Medication Instructions Recorded Confirmed Type zinc sulfate 220 mg PO DAILY #90 tab-cap 01/10/17 03/02/20 History pen needle, diabetic [BD #180 12/18/17 01/14/20 Rx Ultra-Fine Orig Pen Needle] ferrous sulfate 325 mg (65 mg 325 mg PO DAILY tab 06/11/18 03/02/20 History iron) tablet blood sugar diagnostic #300 strip 09/13/18 03/02/20 Rx ondansetron HCl 4 mg tablet 4 mg PO DAILY PRN #90 tab-cap 07/01/19 03/02/20 Rx pregabalin 100 mg capsule 100 mg PO TID #270 cap 09/03/19 03/02/20 Rx rifaximin 550 mg tablet 550 mg PO BID #180 tab 11/12/19 03/02/20 Rx sucralfate 1 gram tablet 1 gm PO AC & HS #360 tab 11/12/19 03/02/20 Rx amlodipine 5 mg tablet 5 mg PO DAILY #90 tab 01/14/20 03/02/20 Rx nystatin 1 applic TP TID PRN 02/14/20 03/02/20 History lactulose 10 g PO BID 02/18/20 03/02/20 History nadolol 40 mg PO DAILY #30 tab 02/20/20 03/02/20 Rx oxacillin in dextrose(iso-osm) 2,000 mg IV Q4H #1200 ml 02/20/20 03/02/20 Rx spironolactone 50 mg PO DAILY #30 tab 02/20/20 03/02/20 Rx furosemide 20 mg tablet 40 mg PO DAILY #180 cap 03/02/20 03/02/20 Rx pantoprazole 40 mg tablet,delayed 40 mg PO DAILY #180 tab 03/02/20 03/02/20 Rx release Allergies Allergy/AdvReac Type Severity Reaction Status Date / Time gabapentin Allergy Intermediate Local Unverified 04/13/20 20:10 reaction on skin lisinopril AdvReac Itching Verified 04/13/20 20:10 Exam Narrative Exam Narrative: 113/47, 88, 387.78, 20, 95% RA. HEENT unremarkable; neck supple with transmitted bruit and brisk carotids; lungs clear; hear RRR with 3/6 sys murmur LUSB to carotids; abdomen soft and NT; extremities bilateral lymhpedema with stasis changes, LLE visibly more swollen and indurated, probably slightly more warm than right, some erythema apparent superiorly on leg but difficult read due to chronic discoloration. Open ulcer webspace between toes 1 and 2; neuro Ox3, moves all 4s Results Labs Result diagrams: 04/13/20 20:50 04/13/20 20:50 Labs: Laboratory Results - last 24 hr 04/13/20 04/13/20 04/13/20 20:50 20:50 20:50 WBC 11.37 H RBC 3.93 L Hgb 12.1 Hct 35.7 L MCV 90.8 MCH 30.8 MCHC 33.9 RDW 13.9 Plt Count 100 L MPV 10.0 Immature Gran % 0.3 Neutrophils % 88.9 Lymphocytes % 6.4 Monocytes % 3.9 Eosinophils % 0.3 Basophils % 0.2 Absolute Neutrophils 10.11 H Absolute Lymphocytes 0.73 L Absolute Monocytes 0.44 Absolute Eosinophils 0.03 Absolute Basophils 0.02 PT INR APTT Sodium 140 Potassium 3.4 L Chloride 102 Carbon Dioxide 31.4 Anion Gap 6.6 BUN 15 Creatinine 1.02 Estimated GFR/1.73 m2 54.73 Glucose 168 H Lactate 2.8 H* Calcium 8.7 Magnesium Total Bilirubin 4.1 H Conjugated Bilirubin 2.10 H AST 45 H ALT 29 Alkaline Phosphatase 164 H Ammonia NT-Pro-B Natriuret Pep Total Protein 6.3 L Albumin 2.4 L Procalcitonin 5.0 04/13/20 04/13/20 04/13/20 20:50 20:50 20:50 WBC RBC Hgb Hct MCV MCH MCHC RDW Plt Count MPV Immature Gran % Neutrophils % Lymphocytes % Monocytes % Eosinophils % Basophils % Absolute Neutrophils Absolute Lymphocytes Absolute Monocytes Absolute Eosinophils Absolute Basophils PT 12.2 H INR 1.2 H APTT 28.3 Sodium Potassium Chloride Carbon Dioxide Anion Gap BUN Creatinine Estimated GFR/1.73 m2 Glucose Lactate Calcium Magnesium 1.6 L Total Bilirubin Conjugated Bilirubin AST ALT Alkaline Phosphatase Ammonia < 10 L NT-Pro-B Natriuret Pep 648 H Total Protein Albumin Procalcitonin Last Vital Signs Temp 37.7 C H 04/13/20 20:06 Pulse 88 04/13/20 21:42 Resp 20 04/13/20 20:25 BP 113/47 L 04/13/20 21:42 Pulse Ox 95 04/13/20 21:42 COVID-19 Screening Have you,or household,traveled outside [place] in last 14 days?: No Had IN PERSON contact w/suspected or confirmed C-19 person: No
[2020-04-13 23:21] LABS: D-Dimer 705 ng/mlFEU (<500)
[2020-04-14] MEDS: oxyCODONE 5 MG TAB PO (01:06)
[2020-04-14 02:04] LABS: Bilirubin Small (Negative); Blood Large (Negative); Clarity Sl Cloudy (Clear); Glucose Negative (Negative); Ketones Trace mg/dL (Negative); Leukocyte Esterase Negative (Negative); Nitrite Negative (Negative); Urobilinogen 0.2 EU/dL (Up TO 0.2); pH 5.5 (5-8)
[2020-04-14 02:13] LABS: Bacteria Rare HPF (Negative); C & S Indicated? C&S Done As Ordered; Casts Negative LPF (Negative); Crystals Negative HPF (Negative); Epithelial Cells Moderate HPF (Negative); Mucus Trace (Negative)
[2020-04-14] MEDS: PIPERACILLIN/TAZO 3.375 GM in Normal Saline 50 ML IVPB ×3 (04:20→18:33)
[2020-04-14] MEDS: Normal Saline Flush 10 ML SYR IVP ×2 (04:30→18:33)
[2020-04-14 06:41] LABS: HCT 32.7 % (36.0-46.0); HGB 11.2 g/dL (12.0-15.5); Mean Corp. HGB Concentration 34.3 g/dL (32.0-36.0); Mean Corpuscular Hemoglobin 31.4 pg (27.0-33.0); Mean Corpuscular Volume 91.6 fL (80-95); Mean Platelet Volume 9.9 fL (8.0-11.0); RBC 3.57 m/cumm (4.00-5.20); RBC Distribution Width 13.9 % (11.7-14.6); White Blood Cell Count 10.59 k/cumm (4.4-10.8)
[2020-04-14 06:47] LABS: Anion Gap 6.5 mmol/L (3-11); BUN 19 mg/dL (7-18); CO2 29.5 mmol/L (21.0-32.0); CREATININE 1.04 mg/dL (0.55-1.02); Chloride 102 mmol/L (98-107); Estimated GFR 53.52 (mL/min/1.73m2); Glucose 230 mg/dL (74-106); Potassium 3.4 mmol/L (3.5-5.1); Sodium 138 mmol/L (136-145)
[2020-04-14] MEDS: Heparin 5,000 UNITS/ML VIAL 5000 UNITS SC (06:48)
[2020-04-14 07:09] LABS: Platelet Count 83 x1000/uL (130-400)
[2020-04-14 07:33] VITALS: BP 110/65; PULSE 89; RESP 17; TEMP 37.7; O2SAT 94
[2020-04-14 08:06] LABS: Lactate 2.4 mmol/L (0.6-1.4)
[2020-04-14] MEDS: Lactulose 20 GM/30 ML CUP 10 GM PO ×3 (08:07→19:39)
[2020-04-14] MEDS: Sucralfate 1 GM TAB PO ×4 (08:08→22:32)
[2020-04-14] MEDS: Rifaximin 550 MG TAB PO ×2 (08:08→19:38)
[2020-04-14] MEDS: Pregabalin 100 MG CAP PO ×3 (08:08→19:38)
[2020-04-14] MEDS: Zinc Sulfate 220 MG TAB PO (08:08)
[2020-04-14] MEDS: Nadolol 40 MG TAB PO (08:08)
[2020-04-14] MEDS: Spironolactone 50 MG TAB PO (08:08)
[2020-04-14] MEDS: Pantoprazole 40 MG TABCR PO (08:09)
[2020-04-14] MEDS: Ferrous Sulfate 325 MG TAB PO (08:09)
[2020-04-14] MEDS: Furosemide 20 MG TAB 40 MG PO (08:09)
[2020-04-14] MEDS: Insulin Aspart 300 UNITS/3 ML PEN SC ×3 (08:09→17:22)
[2020-04-14 08:49] LABS: Lactate 2.8 mmol/L (0.6-1.4)
--- NOTE | 2020-04-14 08:57 | DI.US_ITS ---
EXAM: US LOWER EXTREMITY VENOUS LT CLINICAL HISTORY: pain swelling LLE. TECHNIQUE: Lower extremity venous ultrasound performed using grayscale, color-flow, and spectral Dop pler analysis. COMPARISON: No exams were available for comparison FINDINGS: The common femoral, femoral and popliteal veins demonstrate normal compressibility, augmentation, and color Doppler. The posterior tibial veins are patent. The saphenous vein appears free of thrombus. No Lal's cyst or hematoma is seen. IMPRESSION: No evidence of DVT. DATA REPOSITORY:
--- NOTE | 2020-04-14 08:58 | PGE_ITS ---
Date of Service Date of service: 04/14/20 Time of Service: 16:33 Assessment and Plan Assessment and plan (1) Diabetic foot infection: Status: Acute Assessment and plan: white count improved today. no fevers overnight, blood pressures stable. lactic acid trending downwards. will continue vanc/zosyn. blood cultures pending. refuses podiatry consult. wound care consult placed. no evidence of osteomyelitis on imaging. (2) Elevated d-dimer: Status: Acute Assessment and plan: borderline at 703 with age correction of 630. no respiratory symptoms or hypoxia. ultrasound negative for DVT. (3) Diabetes mellitus: Status: Chronic Assessment and plan: well controlled with hemoglobin A1C of 5 in february of this year. will continue carb controlled diet, and monitor. anticipate hyperglycemia in setting of infection Qualifiers: Diabetes mellitus complication status: without complication Diabetes mellitus jail insulin use: without termite control servicer use Diabetes mellitus type: type 2 Qualified Code(s): E11.9 - Type 2 diabetes mellitus without complications (4) Essential hypertension: Status: Chronic Assessment and plan: blood pressures are stable. continue to monitor. amlodipine on hold (5) Cirrhosis: Status: Chronic Assessment and plan: stable, continue rifaximin, spironalactone and lactulose, avoid hepatotoxic drugs. monitor liver functions Qualifiers: Hepatic cirrhosis type: other cirrhosis Qualified Code(s): K74.69 - Other cirrhosis of liver (6) Iron deficiency anemia: Status: Acute Assessment and plan: stable, continue supplemental iron Qualifiers: Iron deficiency anemia type: unspecified iron deficiency Qualified Code (s): D50.9 - Iron deficiency anemia, unspecified (7) DVT prophylaxis: Status: Acute Assessment and plan: heparin teds scds (8) Discharge planning issues: Status: Acute Assessment and plan: case management following discussed with Dr Rich who is in agreement Subjective Subjective Patient reports: no new complaints and afebrile Interval history since last seen: hemodynamically stable, erythema improved and within skin markings. Exam Const General: cooperative (older appearing than stated age), comfortable, no acute distress and ill appearing chronically Nutritional Appearance: average body habitus and overweight Orientation: alert, awake and oriented x3 HENMT Head: normal to inspection, normocephalic and atraumatic Mouth: oral mucosae normal Resp Effort & Inspection: normal respiratory effort Auscultation: clear to auscultation bilaterally Cardio Rate: regular rate Rhythm: regular rhythm Heart Sounds: murmur systolic GI Inspection: normal to inspection Palpation: soft Auscultation: normal bowel sounds Skin General skin exam: other (chronic discoloration to bilateral lower extermity L>R) Lesions: lesion noted (left great toe, slough wound bed) Extrem Left lower extremity: edema (left > right) Details: pitting and 2+ Objective Objective Clinical Data: Abnormal lab results 04/13/20 04/13/20 04/13/20 Range/Units 20:50 20:50 20:50 WBC 11.37 H (4.4-10.8) k/cumm RBC 3.93 L (4.00-5.20) m/cumm Hgb (12.0-15.5) g/dL Hct 35.7 L (36.0-46.0) % Plt Count 100 L (130-400) x1000/uL Absolute Neutrophils 10.11 H (1.2-6.7) k/cumm Absolute Lymphocytes 0.73 L (1.2-3.4) k/cumm PT (9.3-11.0) sec INR (0.9-1.1) D-Dimer (<500) ng/mlFEU Potassium 3.4 L (3.5-5.1) mmol/L BUN (7-18) mg/dL Creatinine (0.55-1.02) mg/dL Glucose 168 H (74-106) mg/dL Lactate 2.8 H* (0.6-1.4) mmol/L Calcium (8.5-10.1) mg/dL Magnesium (1.8-2.4) mg/dL Total Bilirubin 4.1 H (0.2-1.0) mg/dL Conjugated Bilirubin 2.10 H (0.00-0.20) mg/dL AST 45 H (15-37) U/L Alkaline Phosphatase 164 H (46-116) U/L Ammonia (11-32) umol/L NT-Pro-B Natriuret Pep (<300) pg/mL Total Protein 6.3 L (6.4-8.2) g/dL Albumin 2.4 L (3.4-5.0) g/dL Urine Protein (Negative) mg/dL Urine Ketones (Negative) mg/dL Urine Blood (Negative) Urine Bilirubin (Negative) Urine RBC (0-2) HPF 04/13/20 04/13/20 04/13/20 Range/Units 20:50 20:50 20:50 WBC (4.4-10.8) k/cumm RBC (4.00-5.20) m/cumm Hgb (12.0-15.5) g/dL Hct (36.0-46.0) % Plt Count (130-400) x1000/uL Absolute Neutrophils (1.2-6.7) k/cumm Absolute Lymphocytes (1.2-3.4) k/cumm PT 12.2 H (9.3-11.0) sec INR 1.2 H (0.9-1.1) D-Dimer (<500) ng/mlFEU Potassium (3.5-5.1) mmol/L BUN (7-18) mg/dL Creatinine (0.55-1.02) mg/dL Glucose (74-106) mg/dL Lactate (0.6-1.4) mmol/L Calcium (8.5-10.1) mg/dL Magnesium 1.6 L (1.8-2.4) mg/dL Total Bilirubin (0.2-1.0) mg/dL Conjugated Bilirubin (0.00-0.20) mg/dL AST (15-37) U/L Alkaline Phosphatase (46-116) U/L Ammonia < 10 L (11-32) umol/L NT-Pro-B Natriuret Pep 648 H (<300) pg/mL Total Protein (6.4-8.2) g/dL Albumin (3.4-5.0) g/dL Urine Protein (Negative) mg/dL Urine Ketones (Negative) mg/dL Urine Blood (Negative) Urine Bilirubin (Negative) Urine RBC (0-2) [facility] 04/13/20 04/14/20 04/14/20 Range/Units 20:50 01:53 06:20 WBC (4.4-10.8) k/cumm RBC (4.00-5.20) m/cumm Hgb (12.0-15.5) g/dL Hct (36.0-46.0) % Plt Count (130-400) x1000/uL Absolute Neutrophils (1.2-6.7) k/cumm Absolute Lymphocytes (1.2-3.4) k/cumm PT (9.3-11.0) sec INR (0.9-1.1) D-Dimer 705 H (<500) ng/mlFEU Potassium 3.4 L (3.5-5.1) mmol/L BUN 19 H (7-18) mg/dL Creatinine 1.04 H (0.55-1.02) mg/dL Glucose 230 H (74-106) mg/dL Lactate (0.6-1.4) mmol/L Calcium 8.0 L (8.5-10.1) mg/dL Magnesium (1.8-2.4) mg/dL Total Bilirubin (0.2-1.0) mg/dL Conjugated Bilirubin (0.00-0.20) mg/dL AST (15-37) U/L Alkaline Phosphatase (46-116) U/L Ammonia (11-32) umol/L NT-Pro-B Natriuret Pep (<300) pg/mL Total Protein (6.4-8.2) g/dL Albumin (3.4-5.0) g/dL Urine Protein Trace H (Negative) mg/dL Urine Ketones Trace H (Negative) mg/dL Urine Blood Large H (Negative) Urine Bilirubin Small H (Negative) Urine RBC 5-10 H (0-2) HPF 04/14/20 04/14/20 Range/Units 06:20 07:54 WBC (4.4-10.8) k/cumm RBC 3.57 L (4.00-5.20) m/cumm Hgb 11.2 L (12.0-15.5) g/dL Hct 32.7 L (36.0-46.0) % Plt Count 83 L (130-400) x1000/uL Absolute Neutrophils (1.2-6.7) k/cumm Absolute Lymphocytes (1.2-3.4) k/cumm PT (9.3-11.0) sec INR (0.9-1.1) D-Dimer (<500) ng/mlFEU Potassium (3.5-5.1) mmol/L BUN (7-18) mg/dL Creatinine (0.55-1.02) mg/dL Glucose (74-106) mg/dL Lactate 2.4 H* (0.6-1.4) mmol/L Calcium (8.5-10.1) mg/dL Magnesium (1.8-2.4) mg/dL Total Bilirubin (0.2-1.0) mg/dL Conjugated Bilirubin (0.00-0.20) mg/dL AST (15-37) U/L Alkaline Phosphatase (46-116) U/L Ammonia (11-32) umol/L NT-Pro-B Natriuret Pep (<300) pg/mL Total Protein (6.4-8.2) g/dL Albumin (3.4-5.0) g/dL Urine Protein (Negative) mg/dL Urine Ketones (Negative) mg/dL Urine Blood (Negative) Urine Bilirubin (Negative) Urine RBC (0-2) HPF Vital Signs Temperature 37.7 C H 04/14/20 07:33 Temperature Source Tympanic 04/14/20 07:33 Pulse 89 04/14/20 07:33 Pulse Rhythm Regular 04/13/20 23:33 Respiratory Rate 17 04/14/20 07:33 Respiratory Effort Non-Labored 04/13/20 23:33 Respiratory Depth Normal 04/13/20 23:33 Respiratory Pattern Normal 04/13/20 23:33 Blood Pressure 110/65 04/14/20 07:33 Blood Pressure Mean 58 04/13/20 23:01 Blood Pressure Position Supine 04/13/20 20:06 Pulse Oximetry 94 L 04/14/20 07:33 Oxygen Delivery Method Room Air 04/14/20 07:33 Oxygen Flow Rate 0 04/14/20 07:33 Pain Level 2 04/14/20 07:33 Comment 04/13/20 20:06 Intake & Output 04/13/20 04/13/20 04/14/20 11:59 23:59 11:59 Intake Total 100 / 100 480 / 480 Output Total 700 / 700 Balance 100 / 100 -220 / -220 Weight 103.419 kg Intake: IV 100 / 100 Oral 480 / 480 Output: Urine 700 / 700 Other: Urine Color Dark Jenna Urine Appearance Mucous Threads Urine Odor Normal Stool Size Moderate Stool Characteristics Soft Formed Voiding Methods Bedside Commode Laboratory Results WBC 10.59 k/cumm (4.4-10.8) 04/14/20 06:20 RBC 3.57 m/cumm (4.00-5.20) L 04/14/20 06:20 Hgb 11.2 g/dL (12.0-15.5) L 04/14/20 06:20 Hct 32.7 % (36.0-46.0) L 04/14/20 06:20 MCV 91.6 fL (80-95) 04/14/20 06:20 MCH 31.4 pg (27.0-33.0) 04/14/20 06:20 MCHC 34.3 g/dL (32.0-36.0) 04/14/20 06:20 RDW 13.9 % (11.7-14.6) 04/14/20 06:20 Plt Count 83 x1000/uL (130-400) L 04/14/20 06:20 MPV 9.9 fL (8.0-11.0) 04/14/20 06:20 Immature Gran % 0.3 % 04/13/20 20:50 Neutrophils % 88.9 04/13/20 20:50 Lymphocytes % 6.4 04/13/20 20:50 Monocytes % 3.9 04/13/20 20:50 Eosinophils % 0.3 04/13/20 20:50 Basophils % 0.2 04/13/20 20:50 Absolute Neutrophils 10.11 k/cumm (1.2-6.7) H 04/13/20 20:50 Absolute Lymphocytes 0.73 k/cumm (1.2-3.4) L 04/13/20 20:50 Absolute Monocytes 0.44 k/cumm (0.11-0.7) 04/13/20 20:50 Absolute Eosinophils 0.03 k/cumm (0.0-0.7) 04/13/20 20:50 Absolute Basophils 0.02 k/cumm (0.0-0.2) 04/13/20 20:50 PT 12.2 sec (9.3-11.0) H 04/13/20 20:50 INR 1.2 (0.9-1.1) H 04/13/20 20:50 APTT 28.3 sec (21.0-31.4) 04/13/20 20:50 D-Dimer 705 ng/mlFEU (<500) H 04/13/20 20:50 Sodium 138 mmol/L (136-145) 04/14/20 06:20 Potassium 3.4 mmol/L (3.5-5.1) L 04/14/20 06:20 Chloride 102 mmol/L (98-107) 04/14/20 06:20 Carbon Dioxide 29.5 mmol/L (21.0-32.0) 04/14/20 06:20 Anion Gap 6.5 mmol/L (3-11) 04/14/20 06:20 BUN 19 mg/dL (7-18) H 04/14/20 06:20 Creatinine 1.04 mg/dL (0.55-1.02) H 04/14/20 06:20 Estimated GFR/1.73 m2 53.52 (mL/min/1.73m2) 04/14/20 06:20 Glucose 230 mg/dL (74-106) H 04/14/20 06:20 Lactate 2.4 mmol/L (0.6-1.4) H* 04/14/20 07:54 Calcium 8.0 mg/dL (8.5-10.1) L 04/14/20 06:20 Magnesium 1.6 mg/dL (1.8-2.4) L 04/13/20 20:50 Total Bilirubin 4.1 mg/dL (0.2-1.0) H 04/13/20 20:50 Conjugated Bilirubin 2.10 mg/dL (0.00-0.20) H 04/13/20 20:50 AST 45 U/L (15-37) H 04/13/20 20:50 ALT 29 U/L (14-59) 04/13/20 20:50 Alkaline Phosphatase 164 U/L (46-116) H 04/13/20 20:50 Ammonia < 10 umol/L (11-32) L 04/13/20 20:50 NT-Pro-B Natriuret Pep 648 pg/mL (<300) H 04/13/20 20:50 Total Protein 6.3 g/dL (6.4-8.2) L 04/13/20 20:50 Albumin 2.4 g/dL (3.4-5.0) L 04/13/20 20:50 Procalcitonin 5.0 ng/mL 04/13/20 20:50 Urine Color [place] (Yellow) 04/14/20 01:53 Urine Clarity Sl cloudy (Clear) 04/14/20 01:53 Urine pH 5.5 (5-8) 04/14/20 01:53 Ur Specific [place] 1.020 (1.005-1.025) 04/14/20 01:53 Urine Protein Trace mg/dL (Negative) H 04/14/20 01:53 Urine Ketones Trace mg/dL (Negative) H 04/14/20 01:53 Urine Blood Large (Negative) H 04/14/20 01:53 Urine Nitrite Negative (Negative) 04/14/20 01:53 Urine Bilirubin Small (Negative) H 04/14/20 01:53 Urine Urobilinogen 0.2 EU/dL (Up TO 0.2) 04/14/20 01:53 Ur Leukocyte Esterase Negative (Negative) 04/14/20 01:53 Urine RBC 5-10 HPF (0-2) H 04/14/20 01:53 Urine WBC 3-5 HPF (0-5) 04/14/20 01:53 Ur Epithelial Cells Moderate HPF (Negative) 04/14/20 01:53 Urine Crystals Negative HPF (Negative) 04/14/20 01:53 Urine Bacteria Rare HPF (Negative) 04/14/20 01:53 Urine Casts Negative LPF (Negative) 04/14/20 01:53 Urine Mucus Trace (Negative) 04/14/20 01:53 Ur Culture Indicated? C&s done as ordered 04/14/20 01:53 Urine Glucose Negative mg/dL (Negative) 04/14/20 01:53 Vancomycin Trough Cancelled 04/13/20 Unknown
[2020-04-14] MEDS: MAGNESIUM SULFATE 2 GM/50 ML BAG IVPB (09:21)
--- NOTE | 2020-04-14 09:45 | PDOC.CMIN ---
- If Service Date Differs Date of service: 04/14/20 Time of Service: 16:17 Care Management Initial Assess REASON FOR HOSPITALIZATION:: Diabetic foot infection PAST MEDICAL HISTORY/PAST SURGICAL HISTORY:: Abdominal pain-chronic epigastric, bleeding esophageoal varices with hemorrhage, breast mass, CAP, carpal tunnel syndrome, cellulitis, cervical disorder with myelopathy, DVT, edema, elev transaminase/LDH, epistaxis, fever, GI bleed, hepatic encephalopathy, incisional hernia, sepsis, thyroid nodule, uninodular goiter, colonoscopy, carpal tunnel release, cervical spinal fusion, tonsillectomy, biopsy of thyroid gland PREVIOUS FUNCTIONAL STATUS/SOCIAL/FAMILY SUPPORTS:: Mayra resides in a single family home in [place] with her and daughter, Divya. She has three additional adult children all who are supportive. Mayra is not currently employed, she was previously independent with ADLs and activities, though over the last few monthes . CURRENT FUNCTIONAL STATUS:: Mayra remains pleasant in interaction; well known to this remote mortgage underwriter. She shares no concerns at this time. CM continues to follow. ADVANCE DIRECTIVES:: Germain Calle [facility] ([phone]) Has patient been provided with info about the portal/API?: Yes Did the patient sign up for the portal?: No CODE STATUS:: Full Code INSURANCE COVERAGE / FINANCIAL ISSUES:: BS CURRENT HOME/COMMUNITY SERVICES/EQUIPMENT:: Glucometer. Previously, Mayra was discharged from [facility] with [facility] orders for RN and [facility]. Lisa, health promotion coordinator at [facility] reports Mayra was open to services from 02/20/20-03/03/20, at which point her services were closed. PRIMARY CARE PHYSICIAN:: Ashley Miller POTENTIAL DISCHARGE NEEDS:: Dr. Lopez consult. Follow up appointments. PATIENT/FAMILY EDUCATION NEEDS:: Review discharge instructions, discuss Ask Me Three. ANTICIPATED BARRIERS TO DISCHARGE:: None identified. TRANSPORTATION:: Via private vehicle with family. PLAN:: Mayra awaits a Dr. Lopez consult, per provider, to inform discharge considerations. CM continues to follow. Mayra is currently in observation and will need to transition to a full admission if she remains at [facility] through tomorrow.
[2020-04-14] MEDS: Magnesium Oxide 400 MG TAB PO ×2 (10:20→19:38)
[2020-04-14] MEDS: VANCOMYCIN 1,000 MG in Normal Saline 250 ML 250 MG IVPB ×2 (10:47→10:50)
--- NOTE | 2020-04-14 12:04 | W.INDIABCONS ---
Date of service: 04/14/20 Time of Service: 12:04 Diabetes Inpatient Consult DESCRIPTION/ASSESSMENT: 65 year old female admitted with cellulitis, diabetic foot ulcer. Familiar from recent hospitalization. PMH: DM2, cellulitis, HTN, morbid obesity. BMI 43. Labs: A1C 5% (02/17/20). Mayra reports that PCP removed her insulin as her BS were doing great after recent hospitalization since she had stopped eating simple carbs. Following Diabetic Diet with > 75% meal completion. She is familiar with how to follow optimal diet for diabetes management but is frustrated that she keeps getting celluliltis. Encouraged her to engage in daily exercise when recovered to help with circulation. INTERVENTION: Provided education on DM including Hyper/hypoglycemia s/s with action plan for each scenario. Definition and types of CHO with examples, CHO counting, DASH diet materials, DM meal planning and label reading literature. Provided a blood sugar and food record chart and materials to reiterate CHO counting techniques. Reviewed desirable BG levels with patient with food choices and portions for optimal outcomes. Provided contact information for this RD and encouraged to call with any f/u questions r/t to DM self management. CDM from kitchen has been helping to count CHO's and achieve intake of ~65g/CHO per meal period. PLAN: Continue current diet plan, Pt to follow up with appeals writer in outpatient setting for weight management Time Spent in Nutritional Counseling and Treatment: 15 min spent face to face
[2020-04-14 12:59] LABS: COVID-19 RT-PCR UVMMC Result Negative (Negative)
--- NOTE | 2020-04-14 13:13 | PHACLINREV_ITS ---
Pharmacy Admission Review - Admission Clinical Review (Last Reviewed 04/13/20 @ 22:16 by Ruiz Houser MD) Elevated d-dimer (Acute) Cellulitis (Acute) Diabetic foot infection (Acute) Discharge planning issues (Acute) Iron deficiency anemia (Acute) DVT prophylaxis (Acute) gabapentin Allergy (Intermediate, Unverified 04/13/20 23:11) Local reaction on skin lisinopril Adverse Reaction (Verified 04/13/20 23:11) Itching Height 5 ft 1 in Weight 103.419 kg - Renal Dosing Renal Dosing: BUN 19 mg/dL (7-18) H 04/14/20 06:20 Creatinine 1.04 mg/dL (0.55-1.02) H 04/14/20 06:20 Medications needing adjustments: Reviewed (CrCl ~61.2 ml/min based on adjusted weight, current meds okay) - Anticoagulation Anticoagulation: Hgb 11.2 g/dL (12.0-15.5) L 04/14/20 06:20 Hct 32.7 % (36.0-46.0) L 04/14/20 06:20 Plt Count 83 x1000/uL (130-400) L 04/14/20 06:20 INR 1.2 (0.9-1.1) H 04/13/20 20:50 Creatinine 1.04 mg/dL (0.55-1.02) H 04/14/20 06:20 DVT Prohphylaxis: Reviewed Medications: Enoxaparin (hold parameter for platelets noted on order) Therapeutic Anticoagulation: N/A - Opiate Usage Evaluate Pain Scale/Pains Meds: Reviewed Scheduled Bowel Reg ordered if on Opiates?: Yes (scheduled lactulose) - Relevant Labs Sodium 138 mmol/L (136-145) 04/14/20 06:20 Potassium 3.4 mmol/L (3.5-5.1) L 04/14/20 06:20 Chloride 102 mmol/L (98-107) 04/14/20 06:20 Magnesium 1.6 mg/dL (1.8-2.4) L 04/13/20 20:50 Electrolytes, C-Reactive P, ESR: Reviewed (K+ and Mag are a little low) - DM Control DM Control: Glucose 230 mg/dL (74-106) H 04/14/20 06:20 Finger Stick Blood Glucose 158 Finger Stick Blood Glucose 158 Finger Stick Blood Glucose 193 Finger Stick Blood Glucose 193 Insulin Dosing: Reviewed (A1C 5% as of February, DM is currently considered to be w ell controlled. Patient is on a carb controlled diet and sliding scale aspart. Anticipate hyperglycemia in setting of infection per progress note.) - Heart Failure/AL Heart Failure/AL: NT-Pro-B Natriuret Pep 648 pg/mL (<300) H 04/13/20 20:50 EF%, VANESSA's, B-Blockers, Diuretics: N/A - BP Control BP Control: Blood Pressure 110/65 If elevated: N/A (BP looks good) - Qtc Review If Elevated: N/A (no recent values) - IV to PO Switch IV Medications: Reviewed (IV ABX for foot infection) - Home Meds Home Med List reviewed: Reviewed (sucralfate may decrease the serum concentration of furosemide; avoid coadministration, separate PO doses by at least 2 hours.) Relevent Home Meds Not ordered & why?: Amlodipine (currently on hold, BP is stable), insulin glargine (has not picked up from pharmacy since September 2019 per external med history), lisinopril (question as to whether or not pt still taking this), ondansetron, nystatin - Current meds Current Medication Order Review: Intervened (fixed pantoprazole order timing based on clinical specialist medical device timin policy, adjusted furosemide timing due to interaction with sucralfate, talked to provider about anticoagulant and drop in platelets (pt is chronically low).) - Comments Comments/Follow Ups: Monitor BP, K+, Mag, plt count, glucose levels (expected to be high due to infection), watch kidney function for possible PABLO (pip/tazo and vancomycin) and for med changes (restart of some home meds, changes to abx pending cultures) Antibiotic Activity - Pharmacy Antibiotic Review Pharmacy Antibiotic Activity: Reviewed, no change (vanco and zosyn ordered, blood and urine cultures pending)
[2020-04-14] MEDS: Enoxaparin 40 MG/0.4 ML SYR SC (13:53)
[2020-04-14 15:32] VITALS: BP 124/62; PULSE 79; RESP 18; TEMP 37.7; O2SAT 97
[2020-04-14] MEDS: VANCOMYCIN 1,000 MG in Normal Saline 250 ML 167 MG IVPB (22:32)
[2020-04-14 23:46] VITALS: BP 105/65; PULSE 73; RESP 18; TEMP 36.8; O2SAT 93
[2020-04-15] MEDS: PIPERACILLIN/TAZO 3.375 GM in Normal Saline 50 ML IVPB ×4 (00:40→17:46)
[2020-04-15 03:51] VITALS: BP 93/57; PULSE 72; RESP 18; TEMP 36.7; O2SAT 93
[2020-04-15] MEDS: Normal Saline Flush 10 ML SYR IVP ×3 (05:56→17:45)
[2020-04-15 06:55] LABS: BUN 22 mg/dL (7-18); CREATININE 0.87 mg/dL (0.55-1.02); Calcium 7.8 mg/dL (8.5-10.1); Chloride 103 mmol/L (98-107); Glucose 129 mg/dL (74-106); Magnesium 1.8 mg/dL (1.8-2.4); Potassium 3.3 mmol/L (3.5-5.1); Sodium 138 mmol/L (136-145)
[2020-04-15] MEDS: Pantoprazole 40 MG TABCR PO (07:39)
[2020-04-15] MEDS: Sucralfate 1 GM TAB PO ×4 (07:40→21:10)
[2020-04-15 07:43] VITALS: BP 103/57; PULSE 67; RESP 19; TEMP 36.5; O2SAT 92
[2020-04-15] MEDS: Lactulose 20 GM/30 ML CUP 10 GM PO ×3 (08:23→19:22)
[2020-04-15] MEDS: Rifaximin 550 MG TAB PO ×2 (08:24→19:21)
[2020-04-15] MEDS: Pregabalin 100 MG CAP PO ×3 (08:24→19:21)
[2020-04-15] MEDS: Spironolactone 50 MG TAB PO (08:24)
[2020-04-15] MEDS: Nadolol 40 MG TAB PO (08:24)
[2020-04-15] MEDS: Ferrous Sulfate 325 MG TAB PO (08:24)
[2020-04-15] MEDS: Zinc Sulfate 220 MG TAB PO (08:24)
--- NOTE | 2020-04-15 09:04 | PDOC.CMPRO ---
- If Service Date Differs Date of service: 04/15/20 Time of Service: 09:04 Care Management Progress Note S/O:Mayra was sitting up in a chair when CM met with her. She was pleasant and engaged readily with CM. She stated that she has been doing well since her last admission which was in January. Mayra reported that her toe began to hurt on Monday and that her leg then swelled up. She said she also had shaking chills which brought her to the ED. Today Mayra stated that she is feeling a bit better. She was able to ambulate with PT this morning using a walker and no longer has a fever. Mayra shared that she has a walker at home so does not feel she will need any DME. Mayra also declined any home services at this time, stating that she has her and daughter to help with whatever she needs. A: Mayra is a 65 year old woman admitted on 04/13/20 with cellulitis. P:Mayra will likely be discharged home with no new services. She will follow up with her PCP and discharge plan of care. She will transport via private vehicle with family. CM will continue to support Mayra and her family and assess for any discharge planning concerns.a cc:
--- NOTE | 2020-04-15 09:53 | W.PM.PROGNOT ---
Date of Service Date of service: 04/15/20 Time of Service: 09:53 Assessment and Plan Assessment and plan (1) Diabetic foot infection: Status: Acute Assessment and plan: white count improved today. no fevers overnight, blood pressures stable. lactic acid trending downwards. will continue vanc/zosyn day 3, blood cultures pending. refuses podiatry consult. wound care consult placed. no evidence of osteomyelitis on imaging. (2) Elevated d-dimer: Status: Acute Assessment and plan: borderline at 703 with age correction of 630. no respiratory symptoms or hypoxia. ultrasound negative for DVT. (3) Diabetes mellitus: Status: Chronic Assessment and plan: well controlled with hemoglobin A1C of 5 in february of this year. will continue carb controlled diet, and monitor. anticipate hyperglycemia in setting of infection Qualifiers: Diabetes mellitus complication status: without complication Diabetes mellitus chcf insulin use: without salvage determiner use Diabetes mellitus type: type 2 Qualified Code(s): E11.9 - Type 2 diabetes mellitus without complications (4) Essential hypertension: Status: Chronic Assessment and plan: blood pressures are stable. continue to monitor. amlodipine on hold (5) Cirrhosis: Status: Chronic Assessment and plan: stable, continue rifaximin, spironalactone and lactulose, avoid hepatotoxic drugs. monitor liver functions Qualifiers: Hepatic cirrhosis type: other cirrhosis Qualified Code(s): K74.69 - Other cirrhosis of liver (6) Iron deficiency anemia: Status: Acute Assessment and plan: stable, continue supplemental iron Qualifiers: Iron deficiency anemia type: unspecified iron deficiency Qualified Code(s): D50.9 - Iron deficiency anemia, unspecified (7) DVT prophylaxis: Status: Acute Assessment and plan: heparin teds scds (8) Discharge planning issues: Status: Acute Assessment and plan: case management following. PT consult discussed with Dr Rich who is in agreement Subjective Subjective Patient reports: no new complaints, tolerating liquids well, tolerating a regular diet and afebrile Interval history since last seen: hemodynamically stable, erythema improved and within skin markings. Exam Const General: cooperative (older appearing than stated age), comfortable, no acute distress and ill appearing chronically Nutritional Appearance: average body habitus and overweight Orientation: alert, awake and oriented x3 HENMT Head: normal to inspection, normocephalic and atraumatic Mouth: oral mucosae normal Resp Effort & Inspection: normal respiratory effort Auscultation: clear to auscultation bilaterally Cardio Rate: regular rate Rhythm: regular rhythm Heart Sounds: murmur systolic GI Inspection: normal to inspection Palpation: soft Auscultation: normal bowel sounds Skin General skin exam: other (chronic discoloration to bilateral lower extermity L>R) Lesions: lesion noted (left great toe, slough wound bed) Extrem Left lower extremity: edema (left > right) Details: pitting and 2+ Objective Objective Clinical Data: Abnormal lab results 04/15/20 Range/Units 06:30 Potassium 3.3 L (3.5-5.1) mmol/L BUN 22 H (7-18) mg/dL Glucose 129 H D (74-106) mg/dL Calcium 7.8 L (8.5-10.1) mg/dL Vital Signs Temperature 36.5 C 04/15/20 07:43 Temperature Source Tympanic 04/15/20 07:43 Pulse 67 04/15/20 07:43 Pulse Rhythm Regular 04/15/20 07:35 Respiratory Rate 19 04/15/20 07:43 Respiratory Effort Non-Labored 04/15/20 07:35 Respiratory Depth Normal 04/15/20 07:35 Respiratory Pattern Normal 04/15/20 07:35 Blood Pressure 103/57 L 04/15/20 07:43 Blood Pressure Mean 58 04/13/20 23:01 Blood Pressure Position Supine 04/13/20 20:06 Pulse Oximetry 92 L 04/15/20 07:43 Oxygen Delivery Method Room Air 04/15/20 07:43 Oxygen Flow Rate 0 04/15/20 07:43 Pain Level 0 04/15/20 07:43 Comment 04/13/20 20:06 Intake & Output 04/14/20 04/14/20 04/15/20 11:59 23:59 11:59 Intake Total 530 / 1560 1030 / 1560 830 / 830 Output Total 700 / 1700 1000 / 1700 200 / 200 Balance -170 / -140 30 / -140 630 / 630 Intake: IV 50 / 400 350 / 400 350 / 350 Oral 480 / 1160 680 / 1160 480 / 480 Output: Urine 700 / 1700 1000 / 1700 200 / 200 Other: Urine Color Dark Jenna Yellow Yellow Urine Appearance Mucous Threads Clear Clear Urine Odor Normal Normal None Comment Pt used the bedside commode. Stool Size Moderate Moderate Stool Characteristics Soft Soft Formed Formed Voiding Methods Bedside Commode Bedside Commode Laboratory Results WBC 10.59 k/cumm (4.4-10.8) 04/14/20 06:20 RBC 3.57 m/cumm (4.00-5.20) L 04/14/20 06:20 Hgb 11.2 g/dL (12.0-15.5) L 04/14/20 06:20 Hct 32.7 % (36.0-46.0) L 04/14/20 06:20 MCV 91.6 fL (80-95) 04/14/20 06:20 MCH 31.4 pg (27.0-33.0) 04/14/20 06:20 MCHC 34.3 g/dL (32.0-36.0) 04/14/20 06:20 RDW 13.9 % (11.7-14.6) 04/14/20 06:20 Plt Count 83 x1000/uL (130-400) L 04/14/20 06:20 MPV 9.9 fL (8.0-11.0) 04/14/20 06:20 Immature Gran % 0.3 % 04/13/20 20:50 Neutrophils % 88.9 04/13/20 20:50 Lymphocytes % 6.4 04/13/20 20:50 Monocytes % 3.9 04/13/20 20:50 Eosinophils % 0.3 04/13/20 20:50 Basophils % 0.2 04/13/20 20:50 Absolute Neutrophils 10.11 k/cumm (1.2-6.7) H 04/13/20 20:50 Absolute Lymphocytes 0.73 k/cumm (1.2-3.4) L 04/13/20 20:50 Absolute Monocytes 0.44 k/cumm (0.11-0.7) 04/13/20 20:50 Absolute Eosinophils 0.03 k/cumm (0.0-0.7) 04/13/20 20:50 Absolute Basophils 0.02 k/cumm (0.0-0.2) 04/13/20 20:50 PT 12.2 sec (9.3-11.0) H 04/13/20 20:50 INR 1.2 (0.9-1.1) H 04/13/20 20:50 APTT 28.3 sec (21.0-31.4) 04/13/20 20:50 D-Dimer 705 ng/mlFEU (<500) H 04/13/20 20:50 Sodium 138 mmol/L (136-145) 04/15/20 06:30 Potassium 3.3 mmol/L (3.5-5.1) L 04/15/20 06:30 Chloride 103 mmol/L (98-107) 04/15/20 06:30 Carbon Dioxide 31.0 mmol/L (21.0-32.0) 04/15/20 06:30 Anion Gap 4.0 mmol/L (3-11) 04/15/20 06:30 BUN 22 mg/dL (7-18) H 04/15/20 06:30 Creatinine 0.87 mg/dL (0.55-1.02) 04/15/20 06:30 Estimated GFR/1.73 m2 >= 60.00 (mL/min/1.73m2) 04/15/20 06:30 Glucose 129 mg/dL (74-106) H D 04/15/20 06:30 Lactate 2.4 mmol/L (0.6-1.4) H* 04/14/20 07:54 Calcium 7.8 mg/dL (8.5-10.1) L 04/15/20 06:30 Magnesium 1.8 mg/dL (1.8-2.4) 04/15/20 06:30 Total Bilirubin 4.1 mg/dL (0.2-1.0) H 04/13/20 20:50 Conjugated Bilirubin 2.10 mg/dL (0.00-0.20) H 04/13/20 20:50 AST 45 U/L (15-37) H 04/13/20 20:50 ALT 29 U/L (14-59) 04/13/20 20:50 Alkaline Phosphatase 164 U/L (46-116) H 04/13/20 20:50 Ammonia < 10 umol/L (11-32) L 04/13/20 20:50 NT-Pro-B Natriuret Pep 648 pg/mL (<300) H 04/13/20 20:50 Total Protein 6.3 g/dL (6.4-8.2) L 04/13/20 20:50 Albumin 2.4 g/dL (3.4-5.0) L 04/13/20 20:50 Procalcitonin 5.0 ng/mL 04/13/20 20:50 Urine Color [place] (Yellow) 04/14/20 01:53 Urine Clarity Sl cloudy (Clear) 04/14/20 01:53 Urine pH 5.5 (5-8) 04/14/20 01:53 Ur Specific Vass 1.020 (1.005-1.025) 04/14/20 01:53 Urine Protein Trace mg/dL (Negative) H 04/14/20 01:53 Urine Ketones Trace mg/dL (Negative) H 04/14/20 01:53 Urine Blood Large (Negative) H 04/14/20 01:53 Urine Nitrite Negative (Negative) 04/14/20 01:53 Urine Bilirubin Small (Negative) H 04/14/20 01:53 Urine Urobilinogen 0.2 EU/dL (Up TO 0.2) 04/14/20 01:53 Ur Leukocyte Esterase Negative (Negative) 04/14/20 01:53 Urine RBC 5-10 HPF (0-2) H 04/14/20 01:53 Urine WBC 3-5 HPF (0-5) 04/14/20 01:53 Ur Epithelial Cells Moderate HPF (Negative) 04/14/20 01:53 Urine Crystals Negative HPF (Negative) 04/14/20 01:53 Urine Bacteria Rare HPF (Negative) 04/14/20 01:53 Urine Casts Negative LPF (Negative) 04/14/20 01:53 Urine Mucus Trace (Negative) 04/14/20 01:53 Ur Culture Indicated? C&s done as ordered 04/14/20 01:53 Urine Glucose Negative mg/dL (Negative) 04/14/20 01:53 Vancomycin Trough 11.0 ug/mL (10.0-20.0) 04/15/20 09:00 COVID-19 PCR Negative (Negative) 04/13/20 22:05 Nasopharyn COVID-19 PCR Not Applicable 04/13/20 22:05 Ref Test [facility] 04/13/20 22:05
--- NOTE | 2020-04-15 10:25 | IN_ITS ---
Date of service: 04/15/20 Time of Service: 10:25 PT Notes Visit Reasons: DIABETIC FOOT INFECTION Physical Therapy Inpatient Initial Evaluation Date: 04/15/2020 Referring Doctor: Li Guerra NP PT Orders: PT CONSULT: Eval/Treat Precautions: Fall. Standard. Activity as tolerated. Patient Profile/Admitting Diagnosis: Mayra is a 65-year-old female with past medical history significant for hepatic encephalopathy, diabetes mellitus, and aortic stenosis who presented to the ED on 04/13/2020 with chief complaints of worsening pain and redness in the left leg and foot, fever and chills. Patient is diagnosed with cellulitis, L diabetic foot infection, increased d-dimer, and iron deficiency anemia. 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; s/p ACDF 2005 Cervical disc disorder with myelopathy (Resolved 09/04/12) Chronic epigastric pain (Chronic 03/23/16) DVT prophylaxis (Inactive) Edema, unspecified (Resolved) 06/28/16 B/L Elev transaminase/LDH (Resolved) Elevation of level of transaminase and lactic acid dehydrogenase (LDH) (Chronic) Epistaxis (Inactive) Esophageal varices with hemorrhage Fever (Inactive) Fever, unknown origin (Resolved) 04/14/16 GI bleed (Resolved) Hepatic encephalopathy Incisional hernia (Resolved 01/15/15) Incisional hernia (Chronic 01/15/15) Mild epistaxis (Resolved) 12/21/15 Sepsis (Inactive) Thyroid nodule (Resolved) right; 2008-[facility] [place]; 2.3cm nodule; neg. biopsy Uninodular goiter Surgical History Colonoscopy - IV Sedation (04/12/13) DR. Bhumika CLAYTON Open Carpal Tunnel release RIGHT OTHER CERVICAL FUS ANT discectomy 2008 [facility] [place]; NEGATIVE THYROID BX S/P carpal tunnel release (Resolved) right S/P cervical spinal fusion (Resolved) anterior; discectomy S/P cervical spinal fusion (Resolved) anterior;discectomy S/P tonsillectomy (Resolved) Status post biopsy of thyroid gland (Resolved) 09/18/08 neg Status post carpal tunnel release (Resolved) Status post cervical spinal arthrodesis (Resolved) Status post tonsillectomy (Resolved) Tonsillectomy Social History/Home Situation: Patient lives with and daughter in a private home with 3 steps to enter and rails on both sides. She is independent with all aspects of ADLs without the need for assistive ambulatory device or adaptive equipment prior to admission. She has not had any falls for the past 12 months. Equipment Owned/DME: None Subjective: Agreeable to trying FWW with walking to offload L LE. Reports 4/10 pain in her L leg and foot. She denies any nausea, pain, dizziness, and headache throughout session. She states that she has compression garments for her legs that she uses for her chronic swelling. Objective: General Observation: Obese. IV access in L UE. Swelling to bilateral legs with beginning fibrosis palpated with the left more affected than the right. Erythema to B legs now beginning to subside. Mental Status: Alert and oriented x4 Pain:4/10 in L foot ROM: Right Upper Extremity: Shoulder Flexion WFL. Shoulder abduction WFL. Elbow flexion WFL. Wrist flexion WFL. Opening and closing of hand WFL. Left Upper Extremity: Shoulder Flexion WFL. Shoulder abduction WFL. Elbow flexion WFL. Wrist flexion WFL. Opening and closing of hand WFL. Right Lower Extremity: Hip flexion WFL. Hip abduction WFL. Knee flexion WFL. Ankle dorsiflexion WFL. Ankle plantarflexion WFL. Left Lower Extremity: Hip flexion WFL. Hip abduction WFL. Knee flexion WFL. Ankle dorsiflexion WFL. Ankle plantarflexion WFL. Strength: Right Upper Extremity: Shoulder flexors 5/5. Shoulder abductors 5/5. Elbow flexors 5/5. Elbow extensors 5/5. Recreation Leader strong. Left Upper Extremity: Shoulder flexors 5/5. Shoulder abductors 5/5. Elbow flexors 5/5. Elbow extensors 5/5. Recreation Leader strong. Right Lower Extremity: Hip flexors 4/5. Hip abductors 4/5. Knee flexors 4/5. Knee extensors 4/5. Ankle dorsiflexors 4/5. Ankle plantarflexors 4/5. Left Lower Extremity: Hip flexors 4/5. Hip abductors 4/5. Knee flexors 4/5. Knee extensors 4/5. Ankle dorsiflexors 4/5. Ankle plantarflexors 4/5. Sensation: Intact as to pain and pressure on bilateral lower extremities, reports frequent sensation on the soles of the feet and the dorsum of the toes. Bed Mobility/Transfers: Sit to stand SBA requires use of front wheeled walker Stand to sit SBA requires use of front wheeled walker Bed to chair SBA requires use of front wheeled walker Chair to bed SBA requires use of front wheeled walker Gait: Patient tolerated level surface ambulation of 100 feet using front wheeled walker with standby assist. Reciprocal swing through gait pattern. Relieved that her L foot did not hurt as much as she anticipated before the walk. Balance: Static Sitting: Normal Dynamic Sitting: Normal Static Standing: Fair Dynamic Standing: Fair Special Tests: Mobility Limitations Standardized Measure [facility] 6 clicks Basic Mobility Inpatient Short Form: Raw Score: 20 CMS Score: 30 % deficit Informed Consent/Education: Patient instructed in purpose of PT consult and plan of care. Assessment: Mayra demonstrates the need for assistive ambulatory device for all mobility ADL performance, functional mobility decline, decreased activity tolerance, and generalized weakness of bilateral lower extremities due to admitting diagnoses. Mayra is a 65-year-old female with past medical history significant for hepatic encephalopathy, diabetes mellitus, and aortic stenosis who presented to the ED on 04/13/2020 with chief complaints of worsening pain and redness in the left leg and foot, fever and chills. Patient is diagnosed with cellulitis, L diabetic foot infection, increased d-dimer, and iron deficiency anemia. Patient presents with clinical signs and symptoms consistent with current/admitting diagnoses that have resulted to mobility limitations, gait instability, and generalized weakness as demonstrated by the following impairment level findings: 1. Decreased strength to B LE major muscle groups 2. Swelling and pain B LE with L >> 3. Impaired activity tolerance Impairments are contributing to the following functional limitations: 1. Inability to safely ambulate without assistive device and physical assistance 2. Increase completion time for mobility ADL performance 3. Inability to negotiate steps alone safely Patient is assessed as a 93025 moderate complexity based on the following: History: 65-year-old female with impairment level findings, functional limitations, and past medical history as listed above Examination: Demonstrable impairment in strength, balance, and activity tolerance with underlying impairments and functional limitations as documented above Presentation: Evolving Decision Makin moderate complexity Goals: Goals X3 days 1. Supine-Sit independent 2. Sit-Supine independent 3. Sit-Stand independent 4. Stand-Sit independent 5. Bed-Chair independent 6. Chair-Bed independent 7. Independent gait on level surface with use of no device for at least 300 feet without report of pain nor dyspnea 8. Independent stair negotiation while holding onto bilateral rails for at least 10 steps without report of pain nor dyspnea 9. Independent with home exercise program 10. Good static and dynamic standing balance/tolerance Plan of Care/Treatment Plan: 1-2x/day, 7 days/week x 1 week. Plan of care has been reviewed with the INSURANCE OPERATIONS REP providing the service under Physical Therapy direction. Initiate Physical Therapy intervention for strengthening, bed mobility, transfers, gait, stairs, balance training, use of assistive device. PT intervention: Session today consisted of initial physical therapy evaluation as well as education and training on safe mobility ADL performance using front wheeled walker. DISCHARGE RECOMMENDATIONS: Home when medically cleared. Will require use of front wheeled walker to offload painful left lower extremity. TREATMENT CODE/TIME: 32306 x 20 minutes, 87446 x 12 minutes beginning at 10:25 AM. Thank you very much for this referral. Gill Hill PT, DPT, CLT [facility] [place], [place]
[2020-04-15] MEDS: Magnesium Oxide 400 MG TAB PO ×2 (10:47→19:21)
[2020-04-15] MEDS: Potassium Chloride 20 MEQ TABCR PO ×3 (10:47→19:21)
[2020-04-15] MEDS: VANCOMYCIN 1,000 MG in Normal Saline 250 ML 250 MG IVPB ×2 (10:47→19:04)
[2020-04-15] MEDS: Furosemide 20 MG TAB 40 MG PO (10:47)
--- NOTE | 2020-04-15 11:03 | WOUNDCONS ---
- If Service Date Differs Date of service: 04/15/20 Time of Service: 11:03 Wound Initial Evaluation Narrative: Pt is a 65 year old female consulted for diabetic ulcer on left great toe. Chart reviewed, including H&P, recent labs, and vital signs, and other providers? reports. Pt declined to see Podiatry so wound team was consulted. KATIE's obtained, NL, but could be a false NL d/t diabetes. However Pt does have pulses present by Doppler in both extremities, see below. LLE has cellulitis, redness w/in marked borders. skin warm and tender to touch. Pt has skin changes, chronic according to Dr. Baron, at the base of bilateral toes which extends up onto all of toes. Skin thick, and bumpy (tiny cobblestone appearance, but not consistent with lymphedema) with fissure like cracks present. Dr. Baron states they have done extensive work up to get a Dx. Pt has had biopsies, MRI, seen dermatology, treated area as if it were fungal in nature with no definitive Dx. Pt has painted toes and when asked who did them she does admit to getting a pedicure at a spa, last week. This is probable source of infection. Pt educated on proper diabetic foot care and instructed to not get pedicures at public places. Pt states I don't think that where I got the infection. Educated on risk of cellulitis with open areas on skin at nail salons, like the fissures on her toes. Reinforcement likely needed for proper foot care education. Open area on left great toe details below. Unsure of actual etiology of wound, does not fit typical characteristics of a diabetic ulcer. KATIE's normal and pulses present by Doppler, probably not arterial, but can not be excluded entirely just based on KATIE's. ? if Pt sustained injury to toe while walking without shoes on or wearing sandals. Pt hemosiderin stains to bilateral shins. wears compression socks at home, recently got a new pair of zip-up ones feet washed with soap and water. dried well. Wound cleansed with debrisoft lolly, crust removed. Recommend a silver hydro-gel to help decrease bacteria and add moisture to the wound bed on left great toe based on dry crusty appearance. - Wound Left Great toe Wound Type: Other (Provider Dx as Diabetic Ulcer, wound does not fit classic characteristics of this based on shape and location. unsure of etiology.) Wound General Appearance: Unapproximated Wound Bed Greatest Portion: Pale Lomas Wound Length: 0.5 cm Wound Width: 0.6 cm Wound Depth: 0.2 cm Wound Drainage Description: Serous (crust on wound before cleansed) - Circulation, Sensation, Motion Edema Degree: 2+ (LLE swelling greater than right.) Peripheral Pulse Strength: Absent (absent by palpation on left, all pulses present with doppler bilateral. faint pedal pulse on right palpated.) Capillary Refill: Less than 3 seconds Sensation Description: [place] (in nilateral feet, on lyrica) Skin Temperature: Warm (LLE warmer than right, Dx cellultis) - KATIE Left KATIE: 1.09 Right KATIE: 1.15 Blood Pressure: 104/51 Pulse: 72 Comment:: KATIE's NL, Pt is a diabetic. probably not falsley elevated d/t being <1.3 - Pain Pain Level: 4 (LLE) Pain Scale Used: Adult - Recomendation Recomendation:: Wash bilat feet with soap and water. Dry well. Apply silver-sept gel to wound on Left Great Toe. Apply Bandaid over wound. Change daily and PRN. Apply Eucerin cream to bilateral lower extremities daily. Thank you for the consult. Physcian/Nurse Practioner Notified: Yes (Li Guerra NP) Treatment Time - Patient Will be Seen Weekly Treatment: 1x/wk (follow-up next monday if patient is still admitted.)
[2020-04-15 11:49] VITALS: BP 104/51; PULSE 72
[2020-04-15] MEDS: Insulin Aspart 300 UNITS/3 ML PEN SC (12:01)
[2020-04-15] MEDS: Enoxaparin 40 MG/0.4 ML SYR SC (14:23)
[2020-04-15 15:29] VITALS: BP 108/55; PULSE 77; RESP 18; TEMP 37; O2SAT 96
[2020-04-15 23:28] VITALS: BP 96/55; PULSE 69; RESP 18; TEMP 37.2; O2SAT 94
[2020-04-16] MEDS: Normal Saline Flush 10 ML SYR IVP ×3 (00:57→18:15)
[2020-04-16] MEDS: PIPERACILLIN/TAZO 3.375 GM in Normal Saline 50 ML IVPB ×5 (00:57→23:31)
[2020-04-16] MEDS: VANCOMYCIN 1,000 MG in Normal Saline 250 ML 250 MG IVPB ×3 (01:45→19:31)
[2020-04-16] MEDS: oxyCODONE 5 MG TAB PO ×2 (01:56→15:04)
[2020-04-16 07:38] VITALS: BP 116/50; PULSE 72; RESP 18; TEMP 37; O2SAT 93
[2020-04-16] MEDS: Pregabalin 100 MG CAP PO ×3 (08:20→20:21)
[2020-04-16] MEDS: Nadolol 40 MG TAB PO (08:20)
[2020-04-16] MEDS: Sucralfate 1 GM TAB PO ×4 (08:20→21:50)
[2020-04-16] MEDS: Ferrous Sulfate 325 MG TAB PO (08:20)
[2020-04-16] MEDS: Zinc Sulfate 220 MG TAB PO (08:20)
[2020-04-16] MEDS: Lactulose 20 GM/30 ML CUP 10 GM PO ×3 (08:21→20:20)
[2020-04-16] MEDS: Pantoprazole 40 MG TABCR PO (08:21)
[2020-04-16] MEDS: Spironolactone 50 MG TAB PO (08:21)
[2020-04-16] MEDS: Rifaximin 550 MG TAB PO ×2 (08:21→20:21)
[2020-04-16] MEDS: Furosemide 20 MG TAB 40 MG PO (09:36)
[2020-04-16] MEDS: Magnesium Oxide 400 MG TAB PO ×2 (09:36→20:21)
[2020-04-16] MEDS: Insulin Aspart 300 UNITS/3 ML PEN SC (11:42)
--- NOTE | 2020-04-16 11:58 | PGE_ITS ---
Date of Service Date of service: 04/16/20 Time of Service: 11:58 Assessment and Plan Assessment and plan (1) Diabetic foot infection: Status: Acute Assessment and plan: white count improved today. no fevers overnight, blood pressures stable. lactic acid trending downwards. will continue vanc/zosyn day 4, blood cultures negative to date. wound care following. no evidence of osteomyelitis on imaging. (2) Elevated d-dimer: Status: Acute Assessment and plan: borderline at 703 with age correction of 630. no respiratory symptoms or hypoxia. ultrasound negative for DVT. no further work up at this time (3) Diabetes mellitus: Status: Chronic Assessment and plan: well controlled with hemoglobin A1C of 5 in february of this year. will continue carb controlled diet, and monitor. anticipate hyperglycemia in setting of infection Qualifiers: Diabetes mellitus complication status: without complication Diabetes mellitus longterm insulin use: without longterm use Diabetes mellitus type: type 2 Qualified Code(s): E11.9 - Type 2 diabetes mellitus without complications (4) Essential hypertension: Status: Chronic Assessment and plan: blood pressures are stable. continue to monitor. amlodipine on hold (5) Cirrhosis: Status: Chronic Assessment and plan: stable, continue rifaximin, spironalactone and lactulose, avoid hepatotoxic drugs. monitor liver functions Qualifiers: Hepatic cirrhosis type: other cirrhosis Qualified Code(s): K74.69 - [facility] cirrhosis of liver (6) Iron deficiency anemia: Status: Acute Assessment and plan: stable, continue supplemental iron Qualifiers: Iron deficiency anemia type: unspecified iron deficiency Qualified Code(s): D50.9 - Iron deficiency anemia, unspecified (7) DVT prophylaxis: Status: Acute Assessment and plan: heparin teds scds (8) Discharge planning issues: Status: Acute Assessment and plan: case management following. PT consult discussed with Dr Rich who is in agreement Subjective Subjective Patient reports: tolerating liquids well, tolerating a regular diet and afebrile Interval history since last seen: having left lower extremity pain still but not worsening. no fevers Exam Const General: cooperative (older appearing than stated age), comfortable, no acute distress and ill appearing chronically Nutritional Appearance: average body habitus and overweight Orientation: alert, awake and oriented x3 HENMT Head: normal to inspection, normocephalic and atraumatic Mouth: oral mucosae normal Resp Effort & Inspection: normal respiratory effort Auscultation: clear to auscultation bilaterally Cardio Rate: regular rate Rhythm: regular rhythm Heart Sounds: murmur systolic GI Inspection: normal to inspection Palpation: soft Auscultation: normal bowel sounds Skin General skin exam: other (chronic discoloration to bilateral lower extermity L>R) Lesions: lesion noted (left great toe, slough wound bed) Extrem Left lower extremity: edema (left > right) Details: pitting and 2+ Objective Objective Clinical Data: Vital Signs Temperature 37 C 04/16/20 07:38 Temperature Source Tympanic 04/16/20 07:38 Pulse 72 04/16/20 07:38 Pulse Rhythm Regular 04/16/20 02:00 Pulse 72 04/15/20 11:49 Respiratory Rate 18 04/16/20 07:38 Respiratory Effort Non-Labored 04/16/20 02:00 Respiratory Depth Normal 04/16/20 02:00 Respiratory Pattern Normal 04/16/20 02:00 Blood Pressure 116/50 L 04/16/20 07:38 Blood Pressure Mean 58 04/13/20 23:01 Blood Pressure Position Supine 04/13/20 20:06 Pulse Oximetry 93 L 04/16/20 07:38 Oxygen Delivery Method Room Air 04/16/20 07:38 Oxygen Flow Rate 0 04/16/20 07:38 Pain Level 3 04/16/20 07:38 Comment 04/13/20 20:06 Intake & Output 04/15/20 04/15/20 04/16/20 11:59 23:59 11:59 Intake Total 830 / 1300 470 / 1300 830 / 830 Output Total 200 / 1200 1000 / 1200 1050 / 1050 Balance 630 / 100 -530 / 100 -220 / -220 Intake: IV 350 / 700 350 / 700 350 / 350 Oral 480 / 600 120 / 600 480 / 480 Output: Urine 200 / 1000 800 / 1000 1050 / 1050 Stool 200 / 200 Other: Urine Color Yellow Pale Light Jenna Urine Appearance Clear Clear Clear Urine Odor Normal None None Comment Void x1 in the bedside commode. Void x1 in the bedside commode. unmeasured mixed with stool Stool Size Moderate Large Large Stool Characteristics Soft Soft Formed Formed Brown Brown Voiding Methods Bedside Commode Bedside Commode Bedside Commode Laboratory Results WBC 10.59 k/cumm (4.4-10.8) 04/14/20 06:20 RBC 3.57 m/cumm (4.00-5.20) L 04/14/20 06:20 Hgb 11.2 g/dL (12.0-15.5) L 04/14/20 06:20 Hct 32.7 % (36.0-46.0) L 04/14/20 06:20 MCV 91.6 fL (80-95) 04/14/20 06:20 MCH 31.4 pg (27.0-33.0) 04/14/20 06:20 MCHC 34.3 g/dL (32.0-36.0) 04/14/20 06:20 RDW 13.9 % (11.7-14.6) 04/14/20 06:20 Plt Count 83 x1000/uL (130-400) L 04/14/20 06:20 MPV 9.9 fL (8.0-11.0) 04/14/20 06:20 Immature Gran % 0.3 % 04/13/20 20:50 Neutrophils % 88.9 04/13/20 20:50 Lymphocytes % 6.4 04/13/20 20:50 Monocytes % 3.9 04/13/20 20:50 Eosinophils % 0.3 04/13/20 20:50 Basophils % 0.2 04/13/20 20:50 Absolute Neutrophils 10.11 k/cumm (1.2-6.7) H 04/13/20 20:50 Absolute Lymphocytes 0.73 k/cumm (1.2-3.4) L 04/13/20 20:50 Absolute Monocytes 0.44 k/cumm (0.11-0.7) 04/13/20 20:50 Absolute Eosinophils 0.03 k/cumm (0.0-0.7) 04/13/20 20:50 Absolute Basophils 0.02 k/cumm (0.0-0.2) 04/13/20 20:50 PT 12.2 sec (9.3-11.0) H 04/13/20 20:50 INR 1.2 (0.9-1.1) H 04/13/20 20:50 APTT 28.3 sec (21.0-31.4) 04/13/20 20:50 D-Dimer 705 ng/mlFEU (<500) H 04/13/20 20:50 Sodium 138 mmol/L (136-145) 04/15/20 06:30 Potassium 3.3 mmol/L (3.5-5.1) L 04/15/20 06:30 Chloride 103 mmol/L (98-107) 04/15/20 06:30 Carbon Dioxide 31.0 mmol/L (21.0-32.0) 04/15/20 06:30 Anion Gap 4.0 mmol/L (3-11) 04/15/20 06:30 BUN 22 mg/dL (7-18) H 04/15/20 06:30 Creatinine 0.87 mg/dL (0.55-1.02) 04/15/20 06:30 Estimated GFR/1.73 m2 >= 60.00 (mL/min/1.73m2) 04/15/20 06:30 Glucose 129 mg/dL (74-106) H D 04/15/20 06:30 Lactate 2.4 mmol/L (0.6-1.4) H* 04/14/20 07:54 Calcium 7.8 mg/dL (8.5-10.1) L 04/15/20 06:30 Magnesium 1.8 mg/dL (1.8-2.4) 04/15/20 06:30 Total Bilirubin 4.1 mg/dL (0.2-1.0) H 04/13/20 20:50 Conjugated Bilirubin 2.10 mg/dL (0.00-0.20) H 04/13/20 20:50 AST 45 U/L (15-37) H 04/13/20 20:50 ALT 29 U/L (14-59) 04/13/20 20:50 Alkaline Phosphatase 164 U/L (46-116) H 04/13/20 20:50 Ammonia < 10 umol/L (11-32) L 04/13/20 20:50 NT-Pro-B Natriuret Pep 648 pg/mL (<300) H 04/13/20 20:50 Total Protein 6.3 g/dL (6.4-8.2) L 04/13/20 20:50 Albumin 2.4 g/dL (3.4-5.0) L 04/13/20 20:50 Procalcitonin 5.0 ng/mL 04/13/20 20:50 Urine Color [place] (Yellow) 04/14/20 01:53 Urine Clarity Sl cloudy (Clear) 04/14/20 01:53 Urine pH 5.5 (5-8) 04/14/20 01:53 Ur Specific [place] 1.020 (1.005-1.025) 04/14/20 01:53 Urine Protein Trace mg/dL (Negative) H 04/14/20 01:53 Urine Ketones Trace mg/dL (Negative) H 04/14/20 01:53 Urine Blood Large (Negative) H 04/14/20 01:53 Urine Nitrite Negative (Negative) 04/14/20 01:53 Urine Bilirubin Small (Negative) H 04/14/20 01:53 Urine Urobilinogen 0.2 EU/dL (Up TO 0.2) 04/14/20 01:53 Ur Leukocyte Esterase Negative (Negative) 04/14/20 01:53 Urine RBC 5-10 HPF (0-2) H 04/14/20 01:53 Urine WBC 3-5 HPF (0-5) 04/14/20 01:53 Ur Epithelial Cells Moderate HPF (Negative) 04/14/20 01:53 Urine Crystals Negative HPF (Negative) 04/14/20 01:53 Urine Bacteria Rare HPF (Negative) 04/14/20 01:53 Urine Casts Negative LPF (Negative) 04/14/20 01:53 Urine Mucus Trace (Negative) 04/14/20 01:53 Ur Culture Indicated? C&s done as ordered 04/14/20 01:53 Urine Glucose Negative mg/dL (Negative) 04/14/20 01:53 Vancomycin Trough 11.0 ug/mL (10.0-20.0) 04/15/20 09:00 COVID-19 PCR Negative (Negative) 04/13/20 22:05 Nasopharyn COVID-19 PCR Not Applicable 04/13/20 22:05 Ref Test Perform Site [facility] 04/13/20 22:05
[2020-04-16] MEDS: Enoxaparin 40 MG/0.4 ML SYR SC (15:05)
[2020-04-16 15:20] VITALS: BP 129/56; PULSE 62; RESP 18; TEMP 37.2; O2SAT 96
--- NOTE | 2020-04-16 15:20 | PT.INTREAT ---
Date of service: 04/16/20 Time of Service: 14:40 PT Notes Visit Reasons: DIABETIC FOOT INFECTION Inpatient Physical Therapy Treatment Note [facility] Date: 04/16/2020 SUBJECTIVE: My foot is really hurting, so I am not sure how far I can go. OBJECTIVE: [] BED MOBILITY/TRANSFERS Sit-stand: S Stand-sit: S Bed-Chair: S Chair-bed: S GAIT Assistive Device: FWW Weight bearing: FWB Assist:SBA Distance: 150' in both am and pm session. THEREX: global LE strengthening, see flowsheet for details. ASSESSMENT: steady on feet. No LOB noted. Step to gait initially, but progressed teddy once she got going. PLAN: continue PT POC. TREATMENT CODE/TIME: 30 min in am and 30 min in pm. [id number], [id number].
--- NOTE | 2020-04-16 15:24 | PDOC.CMPRO ---
- If Service Date Differs Date of service: 04/16/20 Time of Service: 15:24 Care Management Progress Note S/O:Mayra continues to show slow improvement, although she states she continues to have pain, both in her leg and in her back. She has been ambulating with PT and doing well. Per provider, she will need another day of IV antibiotics and then a day or 2 on oral antibiotics in the hospital to ensure the infection does not reoccur. A: Mayra is a 65 year old woman admitted on 04/13/20 with cellulitis. P:Mayra will likely be discharged home with no new services. She will follow up with her PCP and discharge plan of care. She will transport via private vehicle with family. CM will continue to support Mayra and her family and assess for any discharge planning concerns.a cc:
[2020-04-16 16:37] LABS: Vancomycin, Trough 18.8 ug/mL (10.0-20.0)
[2020-04-16 20:39] VITALS: BP 114/64; PULSE 63; RESP 20; TEMP 36.5; O2SAT 97
[2020-04-17] MEDS: VANCOMYCIN 1,000 MG in Normal Saline 250 ML 250 MG IVPB ×3 (01:34→18:03)
[2020-04-17 04:05] VITALS: BP 122/67; PULSE 69; RESP 20; TEMP 36.5; O2SAT 97
[2020-04-17] MEDS: PIPERACILLIN/TAZO 3.375 GM in Normal Saline 50 ML IVPB ×4 (05:39→23:33)
[2020-04-17 07:29] VITALS: BP 121/57; PULSE 60; RESP 17; TEMP 36; O2SAT 96
[2020-04-17] MEDS: Nadolol 40 MG TAB PO (08:05)
[2020-04-17] MEDS: Pregabalin 100 MG CAP PO ×3 (08:05→19:48)
[2020-04-17] MEDS: Zinc Sulfate 220 MG TAB PO (08:05)
[2020-04-17] MEDS: Sucralfate 1 GM TAB PO ×4 (08:05→22:11)
[2020-04-17] MEDS: Pantoprazole 40 MG TABCR PO (08:05)
[2020-04-17] MEDS: Ferrous Sulfate 325 MG TAB PO (08:05)
[2020-04-17] MEDS: Spironolactone 50 MG TAB PO (08:05)
[2020-04-17] MEDS: Rifaximin 550 MG TAB PO ×2 (08:05→19:48)
[2020-04-17] MEDS: Lactulose 20 GM/30 ML CUP 10 GM PO ×3 (08:06→19:48)
--- NOTE | 2020-04-17 08:37 | CMPROGNOTE_ITS ---
- If Service Date Differs Date of service: 04/17/20 Time of Service: 08:37 Care Management Progress Note S/O: Mayra was sitting up in a chair when CM met with her. She was pleasant and agreeable to conversation. Mayra shared that she walked with PT all the way down to their office area and back and felt that she had done well. PT provided her with a surgical shoe for her injured foot. She noted that it made it easier to ambulate. CM faxed a prescription to [facility] for a diabetic shoe at the request of the provider. Mayra anticipates being discharged Monday or Monday if all goes well. She shared that she doesn't mind staying an extra day or two to ensure that the infection is truly adequately controlled. A: Mayra is a 65 year old woman admitted on 04/13/20 with cellulitis. P:Mayra will likely be discharged home with no new services. She will follow up with her PCP and discharge plan of care. She will transport via private vehicle with family. CM will continue to support Mayra and her family and assess for any discharge planning concerns.a
[2020-04-17 08:46] LABS: Abs Immature Grans 0.02 10^3/uL (0.0-0.06); Absolute Basophil Count 0.06 10^3/uL (0.0-0.2); Absolute Eosinophil Count 0.33 10^3/uL (0.0-0.7); Absolute Lymphocyte Count 1.26 10^3/uL (1.2-3.4); Absolute Neutrophil Count 3.77 10^3/uL (1.2-6.7); Eosinophils % 5.4; HCT 36.2 % (36.0-46.0); HGB 12.4 g/dL (11.2-15.7); Immature Grans % 0.3; Lymphocytes % 20.5; MCHC 34.3 % (32.0-36.0); MCV 90.5 fL (80-95); Monocytes % 11.4; Neutrophils % 61.4; Platelet Count 124 10^3/uL (130-400); RDW 13.6 % (11.7-14.6); WBC 6.14 10^3/uL (4.4-10.8)
[2020-04-17 08:49] LABS: Lactate 1.3 mmol/L (0.6-1.4)
[2020-04-17 09:04] LABS: C-Reactive Protein 7.14 mg/dL (0.0-0.3)
[2020-04-17] MEDS: Furosemide 20 MG TAB 40 MG PO (09:17)
[2020-04-17] MEDS: Magnesium Oxide 400 MG TAB PO ×2 (09:17→19:48)
[2020-04-17] MEDS: Normal Saline Flush 10 ML SYR IVP ×3 (09:18→23:33)
[2020-04-17 10:48] LABS: Anion Gap 5.7 mmol/L (3-11); BUN 15 mg/dL (7-18); CO2 29.3 mmol/L (21.0-32.0); CREATININE 0.77 mg/dL (0.55-1.02); Calcium 8.4 mg/dL (8.5-10.1); Chloride 102 mmol/L (98-107); Glucose 160 mg/dL (74-106); Potassium 4.4 mmol/L (3.5-5.1); Sodium 137 mmol/L (136-145)
[2020-04-17] MEDS: Insulin Aspart 300 UNITS/3 ML PEN SC ×2 (11:49→16:47)
--- NOTE | 2020-04-17 11:53 | W.PM.PROGNOT ---
Date of Service Date of service: 04/17/20 Time of Service: 11:53 Assessment and Plan Assessment and plan (1) Diabetic foot infection: Start date: 04/17/20 Start time: 11:56 Status: Acute Assessment and plan: white normalized. no fevers overnight, blood pressures stable. lactic acid normalized. CRP 7.14 and procalcitonin at 2.0 from 5.0 No evidence of osteomylitis. Will finish 5 day course of vanco and zosyn and transition to PO augmentin x 14 days. Recommend follow up with podiatry. BCNGTD (2) Elevated d-dimer: Start date: 04/17/20 Start time: 12:03 Status: Ruled-out Assessment and plan: borderline at 703 with age correction of 630. no respiratory symptoms or hypoxia. ultrasound negative for DVT. no further work up at this time (3) Diabetes mellitus: Start date: 04/17/20 Start time: 12:03 Status: Chronic Assessment and plan: well controlled with hemoglobin A1C of 5 in february of this year. will continue carb controlled diet, and monitor. FS under 180 Qualifiers: Diabetes mellitus type: type 2 Diabetes mellitus ad terminal makeup operator insulin use: without residential use Diabetes mellitus complication status: without complication Qualified Code(s): E11.9 - Type 2 diabetes mellitus without complications (4) Essential hypertension: Start date: 04/17/20 Start time: 12:05 Status: Chronic Assessment and plan: blood pressures are stable. continue to monitor. amlodipine on hold (5) Cirrhosis: Start date: 04/17/20 Start time: 12:05 Status: Chronic Assessment and plan: stable, continue rifaximin, spironalactone and lactulose, avoid hepatotoxic drugs. monitor liver functions Qualifiers: Hepatic cirrhosis type: other cirrhosis Qualified Code(s): K74.69 - Other cirrhosis of liver (6) Iron deficiency anemia: Start date: 04/17/20 Start time: 12:05 Status: Acute Assessment and plan: stable, continue supplemental iron Qualifiers: Iron deficiency anemia type: unspecified iron deficiency Qualified Code(s): D50.9 - Iron deficiency anemia, unspecified (7) DVT prophylaxis: Start date: 04/17/20 Start time: 12:07 Status: Acute Assessment and plan: heparin teds scds (8) Discharge planning issues: Start date: 04/17/20 Start time: 12:07 Status: Acute Assessment and plan: case management following. PT consult discussed with Dr Rich who is in agreement Subjective Subjective Patient reports: no new complaints Interval history since last seen: Wound improving. Pain improving. Bilateral pitting edema. She is suppose to wear compressions. Post op shoe for out of bed. Wrote for diabetic shoes in the future once wound heals. Denies CP, SOB, N/V/D Exam Const General: cooperative (older appearing than stated age), comfortable, no acute distress and ill appearing chronically Nutritional Appearance: average body habitus and overweight Orientation: alert, awake and oriented x3 HENMT Head: normal to inspection, normocephalic and atraumatic Mouth: oral mucosae normal Resp Effort & Inspection: normal respiratory effort Auscultation: clear to auscultation bilaterally Cardio Rate: regular rate Rhythm: regular rhythm Heart Sounds: murmur systolic GI Inspection: normal to inspection Palpation: soft Auscultation: normal bowel sounds Skin General skin exam: other (chronic discoloration to bilateral lower extermity L>R) Lesions: lesion noted (left great toe, slough wound bed) Extrem Left lower extremity: edema (left > right) Details: pitting and 2+ Objective Objective Clinical Data: Abnormal lab results 04/17/20 04/17/20 04/17/20 Range/Units 08:33 08:33 09:11 Plt Count 124 L (130-400) 10^3/uL Glucose 160 H (74-106) mg/dL Calcium 8.4 L (8.5-10.1) mg/dL C-Reactive Protein 7.14 H (0.0-0.3) mg/dL Vital Signs Temperature 36 C L 04/17/20 07:29 Temperature Source Tympanic 04/17/20 07:29 Pulse 60 04/17/20 07:29 Pulse Rhythm Regular 04/17/20 10:30 Pulse 72 04/15/20 11:49 Respiratory Rate 17 04/17/20 07:29 Respiratory Effort Non-Labored 04/17/20 10:30 Respiratory Depth Normal 04/17/20 10:30 Respiratory Pattern Normal 04/17/20 10:30 Blood Pressure 121/57 L 04/17/20 07:29 Blood Pressure Mean 58 04/13/20 23:01 Blood Pressure Position Supine 04/13/20 20:06 Pulse Oximetry 96 04/17/20 07:29 Oxygen Delivery Method Room Air 04/17/20 07:29 Oxygen Flow Rate 0 04/17/20 07:29 Pain Level 4 04/17/20 07:29 Comment 04/13/20 20:06 Intake & Output 04/16/20 04/16/20 04/17/20 11:59 23:59 11:59 Intake Total 1080 / 2210 1130 / 2210 900 / 900 Output Total 1050 / 1650 600 / 1650 900 / 900 Balance 30 / 560 530 / 560 0 / 0 Intake: IV 600 / 950 350 / 950 420 / 420 Oral 480 / 1260 780 / 1260 480 / 480 Output: Urine 1050 / 1650 600 / 1650 900 / 900 Other: Urine Color Light Jenna Yellow Straw Urine Appearance Clear Clear Clear Urine Odor None Normal Comment unmeasured mixed with stool unmeasured amount Stool Occult Blood Negative Stool Size Large Small Large Stool Characteristics Formed Soft Foamy Brown Formed Brown Voiding Methods Bedside Commode Bedside Commode Bedside Commode Laboratory Results WBC 6.14 10^3/uL (4.4-10.8) 04/17/20 08:33 RBC 4.00 10^6/uL (3.93-5.22) 04/17/20 08:33 Hgb 12.4 g/dL (11.2-15.7) 04/17/20 08:33 Hct 36.2 % (36.0-46.0) 04/17/20 08:33 MCV 90.5 fL (80-95) 04/17/20 08:33 MCH 31.0 pg (27.0-33.0) 04/17/20 08:33 MCHC 34.3 % (32.0-36.0) 04/17/20 08:33 RDW 13.6 % (11.7-14.6) 04/17/20 08:33 Plt Count 124 10^3/uL (130-400) L 04/17/20 08:33 MPV 10.0 fL (8.0-11.0) 04/17/20 08:33 Immature Gran % 0.3 04/17/20 08:33 Neutrophils % 61.4 04/17/20 08:33 Lymphocytes % 20.5 04/17/20 08:33 Monocytes % 11.4 04/17/20 08:33 Eosinophils % 5.4 04/17/20 08:33 Basophils % 1.0 04/17/20 08:33 Absolute Neutrophils 3.77 10^3/uL (1.2-6.7) 04/17/20 08:33 Absolute Lymphocytes 1.26 10^3/uL (1.2-3.4) 04/17/20 08:33 Absolute Monocytes 0.70 10^3/uL (0.1-0.8) 04/17/20 08:33 Absolute Eosinophils 0.33 10^3/uL (0.0-0.7) 04/17/20 08:33 Absolute Basophils 0.06 10^3/uL (0.0-0.2) 04/17/20 08:33 PT 12.2 sec (9.3-11.0) H 04/13/20 20:50 INR 1.2 (0.9-1.1) H 04/13/20 20:50 APTT 28.3 sec (21.0-31.4) 04/13/20 20:50 D-Dimer 705 ng/mlFEU (<500) H 04/13/20 20:50 Sodium 137 mmol/L (136-145) 04/17/20 09:11 Potassium 4.4 mmol/L (3.5-5.1) D 04/17/20 09:11 Chloride 102 mmol/L (98-107) 04/17/20 09:11 Carbon Dioxide 29.3 mmol/L (21.0-32.0) 04/17/20 09:11 Anion Gap 5.7 mmol/L (3-11) 04/17/20 09:11 BUN 15 mg/dL (7-18) D 04/17/20 09:11 Creatinine 0.77 mg/dL (0.55-1.02) 04/17/20 09:11 Estimated GFR/1.73 m2 >= 60.00 (mL/min/1.73m2) 04/17/20 09:11 Glucose 160 mg/dL (74-106) H 04/17/20 09:11 Lactate 1.3 mmol/L (0.6-1.4) 04/17/20 08:33 Calcium 8.4 mg/dL (8.5-10.1) L 04/17/20 09:11 Magnesium 1.8 mg/dL (1.8-2.4) 04/15/20 06:30 Total Bilirubin 4.1 mg/dL (0.2-1.0) H 04/13/20 20:50 Conjugated Bilirubin 2.10 mg/dL (0.00-0.20) H 04/13/20 20:50 AST 45 U/L (15-37) H 04/13/20 20:50 ALT 29 U/L (14-59) 04/13/20 20:50 Alkaline Phosphatase 164 U/L (46-116) H 04/13/20 20:50 Ammonia < 10 umol/L (11-32) L 04/13/20 20:50 C-Reactive Protein 7.14 mg/dL (0.0-0.3) H 04/17/20 08:33 NT-Pro-B Natriuret Pep 648 pg/mL (<300) H 04/13/20 20:50 Total Protein 6.3 g/dL (6.4-8.2) L 04/13/20 20:50 Albumin 2.4 g/dL (3.4-5.0) L 04/13/20 20:50 Procalcitonin 2.0 ng/mL 04/17/20 08:33 Urine Color [place] (Yellow) 04/14/20 01:53 Urine Clarity Sl cloudy (Clear) 04/14/20 01:53 Urine pH 5.5 (5-8) 04/14/20 01:53 Ur Specific [place] 1.020 (1.005-1.025) 04/14/20 01:53 Urine Protein Trace mg/dL (Negative) H 04/14/20 01:53 Urine Ketones Trace mg/dL (Negative) H 04/14/20 01:53 Urine Blood Large (Negative) H 04/14/20 01:53 Urine Nitrite Negative (Negative) 04/14/20 01:53 Urine Bilirubin Small (Negative) H 04/14/20 01:53 Urine Urobilinogen 0.2 EU/dL (Up TO 0.2) 04/14/20 01:53 Ur Leukocyte Esterase Negative (Negative) 04/14/20 01:53 Urine RBC 5-10 HPF (0-2) H 04/14/20 01:53 Urine WBC 3-5 HPF (0-5) 04/14/20 01:53 Ur Epithelial Cells Moderate HPF (Negative) 04/14/20 01:53 Urine Crystals Negative HPF (Negative) 04/14/20 01:53 Urine Bacteria Rare HPF (Negative) 04/14/20 01:53 Urine Casts Negative LPF (Negative) 04/14/20 01:53 Urine Mucus Trace (Negative) 04/14/20 01:53 Ur Culture Indicated? C&s done as ordered 04/14/20 01:53 Urine Glucose Negative mg/dL (Negative) 04/14/20 01:53 Vancomycin Trough 18.8 ug/mL (10.0-20.0) 04/16/20 16:10 COVID-19 PCR Negative (Negative) 04/13/20 22:05 Nasopharyn COVID-19 PCR Not Applicable 04/13/20 22:05 Ref Test Perform Site [facility] lab 04/13/20 22:05
[2020-04-17] MEDS: Enoxaparin 40 MG/0.4 ML SYR SC (13:49)
--- NOTE | 2020-04-17 15:10 | PT.INTREAT ---
Date of service: 04/17/20 Time of Service: 14:00 PT Notes Visit Reasons: DIABETIC FOOT INFECTION Inpatient Physical Therapy Treatment Note [facility] Date: 04/17/2020 SUBJECTIVE: Mayra states that her foot is still sore with WB'ing. She feels like the post op shoe helps off load the pain a bit. OBJECTIVE: [] BED MOBILITY/TRANSFERS Supine-sit: S Sit-supine:S Sit-stand: S Stand-sit: S Bed-Chair: S Chair-bed: S GAIT Assistive Device: FWW Weight bearing: FWB Assist: SBA/S Distance: 200' in am and 260' in pm THEREX:brief global LE strengthening, see flowsheet for details. ASSESSMENT: steady on feet. Make safe, independent transfers. The post op shoe seemed to off load some of her discomfort in toe/ top of foot. PLAN: continue with PT POC. TREATMENT CODE/TIME: 20 min in am and 20 min in pm. [id number]
--- NOTE | 2020-04-17 15:41 | CHAPLAIN ---
Mayra was sitting up in a chair, dressed in her own pajamas, when I visited. She was pleasant and said she was being well cared for here. She's been in touch with family by phone.
[2020-04-17 16:53] VITALS: BP 131/67; PULSE 63; RESP 17; TEMP 36.8; O2SAT 92
[2020-04-17 20:30] VITALS: BP 129/67; PULSE 61; RESP 19; TEMP 36.2; O2SAT 95
[2020-04-18] MEDS: VANCOMYCIN 1,000 MG in Normal Saline 250 ML 250 MG IVPB (02:07)
[2020-04-18 03:26] VITALS: BP 120/70; PULSE 64; RESP 18; TEMP 36; O2SAT 97
[2020-04-18 07:19] VITALS: BP 134/61; PULSE 68; RESP 15; TEMP 36.6; O2SAT 96
[2020-04-18 07:41] LABS: Abs Immature Grans 0.03 10^3/uL (0.0-0.06); Absolute Basophil Count 0.07 10^3/uL (0.0-0.2); Absolute Eosinophil Count 0.29 10^3/uL (0.0-0.7); Absolute Lymphocyte Count 1.33 10^3/uL (1.2-3.4); Absolute Monocyte Count 0.54 10^3/uL (0.1-0.8); Absolute Neutrophil Count 3.21 10^3/uL (1.2-6.7); Basophils % 1.3; Eosinophils % 5.3; HCT 33.8 % (36.0-46.0); HGB 11.6 g/dL (11.2-15.7); Immature Grans % 0.5; Lymphocytes % 24.3; MCH 31.1 pg (27.0-33.0); MCHC 34.3 % (32.0-36.0); MCV 90.6 fL (80-95); Monocytes % 9.9; Neutrophils % 58.7; Platelet Count 113 10^3/uL (130-400); RBC 3.73 10^6/uL (3.93-5.22); RDW 13.5 % (11.7-14.6); RDW-SD 44.9 fL; WBC 5.47 10^3/uL (4.4-10.8)
[2020-04-18 08:10] LABS: Anion Gap 2.5 mmol/L (3-11); BUN 15 mg/dL (7-18); CO2 32.5 mmol/L (21.0-32.0); CREATININE 0.75 mg/dL (0.55-1.02); Calcium 8.7 mg/dL (8.5-10.1); Chloride 103 mmol/L (98-107); Glucose 132 mg/dL (74-106); Potassium 4.1 mmol/L (3.5-5.1); Sodium 138 mmol/L (136-145)
--- NOTE | 2020-04-18 08:20 | PDOC.CMDIS ---
- If Service Date Differs Date of service: 04/18/20 Time of Service: 08:20 LACE Index Scoring Tool - Questions: Length of Stay (in days): 3 Acuity (Admit via E.D.?): Yes Comorbidities: Diabetes w/o Complication E.D. Visits: 2 - Answers: Total Score: 9 Risk of Readmission: Low Risk Care Management Discharge Reason for Hospitalization: Diabetic foot infection Discharge Plan: GERRY met with Mayra at length in the room prior to discharge. She is having pain there is a plan to manage her pain as outpatient. GERRY provided information to [facility] r[facility] She will follow up with as outpatient. GERRY will send the chronic manager care management a message with the details and request follow up in the outpatient setting. Mayra will be transported home by private car with her daughter at time of discharge. Prescription sent to [facility] faxed discharge note with the documentation to support the DM shoes. Patient/Family Education Needs: Discharge education, limitations and follow up plan of care including ask me three and self management. Mayra is worried about her toe and the pain in her foot. GERRY reviewed the importance of foot care in the setting of DM. She is willing to follow up with podiatry in [place] and was provided contact information. She will be on oral abx, there is a plan to treat pain and she has a daughter who will help her manage the wound at home. She does not want home health at this time.
--- NOTE | 2020-04-18 08:21 | W.PM.DS.N ---
Date of service: 04/18/20 Time of Service: 08:21 DS: Diagnosis Discharge Diagnosis (1) Diabetic foot infection: Start date: 04/18/20 Start time: 08:31 Status: Acute Asessment and Plan: Wound infection to left foot great toe. Refused to see Dr. Lopez while in patient, recommend seeing podiatry as outpatient. She received 5 days of vanco and zosyn, blood cultures negative. Afebrile. Wound improving. Will discharge home on augmentin BID x 2 weeks. Follow up with PCP (2) Elevated d-dimer: Start date: 04/18/20 Start time: 08:41 Status: Ruled-out Asessment and Plan: R/o, no resp sx or hypoxia, u/s negative for DVT, no further work up (3) Diabetes mellitus: Start date: 04/18/20 Start time: 08:41 Status: Chronic Asessment and Plan: Continue home regimen (4) Essential hypertension: Start date: 04/18/20 Start time: 08:42 Status: Chronic Asessment and Plan: Normotensive. Continue home regimen (5) Cirrhosis: Start date: 04/18/20 Start time: 08:42 Status: Chronic Asessment and Plan: Stable countinue rifaximin, spironalactone, and lactulose. avoid hepatoxic drugs. Monitor liver functions as outpatient. (6) Iron deficiency anemia: Start date: 04/18/20 Start time: 08:44 Status: Acute Asessment and Plan: of chronic disease. Continue above case discussed with Dr. Hooper who is in agreement with case. Discharge Plan Disposition Patient Disposition: HOME Condition: Stable Discharge Details Chief Complaint: GenMedical Clinical Impression: Diabetic foot infection Reason For Visit: DIABETIC FOOT INFECTION Admit Date/Time: 04/15/20 09:44 Admit Provider: Ruiz Houser Attending Provider: Ruiz Houser Primary Care Provider: Malu Baron ED Provider: Chilo Linares Hospital Course Hospital Course: 65 y.o female with h/o DM and cirrhosis presents to [facility] ED with unspecified period of LLE pain increasing over a day prior to admission. She was admitted here at the end of January with strep bacteremia, not from identified source she received 2 weeks of antibiotics. During this course of stay blood cultures negative. She received 5 days of vanco and zosyn, transitioned to PO augmentin x 2 weeks. Her wound is improving. She was given a post op shoe and prescription for diabetic shoes. She refused to see podiatry while in patient. Recommend she see podiatry as an outpatient. She was afebrile overnight, finished her last course IV antibiotics this morning and is being discharged home. She is upset and yelling when assessing her foot. She states she is having pain, though wound and foot look improved. She is sitting up in chair, swelling to bilateral feet improved. Will give her po pain medication and discharge home. Home Meds and New Rx's Prescriptions: New amoxicillin-pot clavulanate 875-125 mg Tablet 1 tab PO BID Qty: 27 RF: 0 oxycodone 5 mg Tablet 5 mg PO Q4H PRN PRNQty: 10 RF: 0 Bio-K plus 50 billion cell capsule,delayed release(DR/EC) 1 cap PO DAILY Qty: 30 RF: 0 Continued Xifaxan 550 mg tablet 550 mg PO BID Qty: 180 RF: 2 sucralfate 1 gram tablet 1 gm PO AC & HS Qty: 360 RF: 12 pregabalin 100 mg capsule 100 mg PO TID Qty: 270 RF: 4 ferrous sulfate [iron] 325 mg (65 mg iron) tablet 325 mg PO DAILY RF: 0 furosemide 20 mg tablet 40 mg PO DAILY Qty: 180 RF: 12 pantoprazole 40 mg tablet,delayed release (DR/EC) 40 mg PO DAILY Qty: 180 RF: 3 amlodipine 5 mg tablet 5 mg PO DAILY Qty: 90 RF: 5 zinc sulfate 220 MG capsule 220 mg PO DAILY Qty: 90 RF: 3 ondansetron HCl [Zofran] 4 mg tablet 4 mg PO DAILY PRN (Reason: nausea and vomiting) Qty: 90 RF: 3 lisinopril 5 mg Tablet 5 mg PO DAILY RF: 0 Lantus Solostar U-100 Insulin 100 unit/mL (3 mL) Insulin Pen 10 unit SUBCUT DAILY RF: 0 nystatin 100,000 unit/gram ointment 1 applic TP TID PRNRF: 0 lactulose 20 gram/30 mL Solution 10 g PO TID RF: 0 nadolol 40 mg tablet 40 mg PO DAILY Qty: 30 RF: 0 spironolactone 50 mg tablet 50 mg PO DAILY Qty: 30 RF: 0 No Action (DME) OneTouch Ultra Test strip 1 ea Miscellaneous QID Qty: 300 RF: 5 (DME) pen needle, diabetic [BD Ultra-Fine Orig Pen Needle] 1 EACH needle 1 ea Miscellaneous BID Qty: 180 RF: 3 Discharge Instructions Instructions: Cellulitis (DC), Diabetic Foot Ulcers (DC) Additional Instructions: Follow up with PCP in 1 week Recommend following up with podiatry of your choice Activity:: Activity as Tolerated Equipment/Supplies:: No Equipment Needed Diet:: Carb Counting Discharge Orders Discharge Orders: Discharge Order (Routine); Ordered 04/18/20 Ordered By: Nohemy Arellano DS: Summary Status at Discharge Functional status at discharge: independent ambulation Overall status at discharge: patient is progressing back to baseline Mental Status: mental status grossly normal Speech and Movement: speech and movement normal Mood: angry Affect: hostile Exam Const General: cooperative (older appearing than stated age), comfortable, no acute distress and ill appearing chronically Nutritional Appearance: average body habitus and overweight Orientation: alert, awake and oriented x3 HENMT Head: normal to inspection, normocephalic and atraumatic Mouth: oral mucosae normal Resp Effort & Inspection: normal respiratory effort Auscultation: clear to auscultation bilaterally Cardio Rate: regular rate Rhythm: regular rhythm Heart Sounds: murmur systolic GI Inspection: normal to inspection Palpation: soft Auscultation: normal bowel sounds Skin General skin exam: other (chronic discoloration to bilateral lower extermity L>R) Lesions: lesion noted (left great toe, slough wound bed) Extrem Left lower extremity: edema (left > right) Details: pitting and 2+ Psych Mental Status: mental status grossly normal Speech and Movement: speech and movement normal Mood: angry Affect: hostile DS: Data Vitals/I&O Vitals and I&O: Vital Signs Temperature 36.6 C 04/18/20 07:19 Temperature Source Tympanic 04/18/20 07:19 Pulse 68 04/18/20 07:19 Pulse Rhythm Regular 04/18/20 05:43 Pulse 72 04/15/20 11:49 Respiratory Rate 15 04/18/20 07:19 Respiratory Effort Non-Labored 04/18/20 05:43 Respiratory Depth Normal 04/18/20 05:43 Respiratory Pattern Normal 04/18/20 05:43 Blood Pressure 134/61 04/18/20 07:19 Blood Pressure Mean 58 04/13/20 23:01 Blood Pressure Position Supine 04/13/20 20:06 Pulse Oximetry 96 04/18/20 07:19 Oxygen Delivery Method Room Air 04/18/20 07:19 Oxygen Flow Rate 0 04/18/20 07:19 Pain Level 8 04/18/20 07:19 Comment 04/17/20 20:30 Intake & Output 04/17/20 04/17/20 04/18/20 11:59 23:59 11:59 Intake Total 1150 / 2230 1080 / 2230 1000 / 1000 Output Total 1200 / 3950 2750 / 3950 1250 / 1250 Balance -50 / -1720 -1670 / -1720 -250 / -250 Intake: IV 670 / 1020 350 / 1020 300 / 300 Oral 480 / 1210 730 / 1210 700 / 700 Output: Urine 1200 / 3950 2750 / 3950 1250 / 1250 Other: Urine Color Yellow Yellow Yellow Urine Appearance Clear Clear Clear Urine Odor None None Normal Comment urine is a light orange. Stool Size Large Small Stool Characteristics Foamy Soft Green Formed Voiding Methods Bedside Commode Bedside Commode Bedside Commode Data Completed and Pending Completed studies during hospitalization [Text1]: FINDINGS: The common femoral, femoral and popliteal veins demonstrate normal compressibility, augmentation, and color Doppler. The posterior tibial veins are patent. The saphenous vein appears free of thrombus. No Lal's cyst or hematoma is seen. IMPRESSION: No evidence of DVT FINDINGS: BONES: No acute fracture is present. A heel spur and interosseous lipoma of the calcaneus are again noted. There is a stable the clip in the in the 1st metatarsal head. There are degenerative changes. No destructive lesions are seen. The bones are osteopenic. JOINTS: No dislocation present. SOFT TISSUE: Soft tissue swelling is noted. There is no abnormal gas collection or foreign body. IMPRESSION: Soft tissue swelling. No evidence osteomyelitis. No significant change from 2018. FINDINGS: The exam is limited by the patient's body habitus and technique. Heart size at the upper limits of normal. There is calcification at the aortic arch. There is some vascular prominence and increased interstitial markings which could indicate mild CHF. No focal consolidation or effusion is seen. There is hardware in the lower cervical spine. IMPRESSION: Question of mild pulmonary edema. No focal infiltrate. FINDINGS: Bones/joints: Osteopenia. No fractures are identified. Extrinsic soft tissue interfaces are felt to be responsible for the lucencies in the 4th toe proximal phalangeal base seen on the AP view. There are no radiographic changes suggestive of osteomyelitis or septic joint. Chronic articular erosion is seen in the 1st metatarsal head centrally. There is a moderate-sized plantar calcaneal spur without evidence of erosion or fracture. Soft tissues: Soft tissue swelling throughout the left foot and ankle, most pronounced in the forefoot and medial toes. 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 Complicated bone cyst would be an additional possibility. No aggressive features. IMPRESSION: 1. No radiographic evidence of osteomyelitis or septic joint. 2. Soft tissue swelling throughout the left foot although most pronounced in the forefoot and medial toes suggesting cellulitis. No foreign body. 3. 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 4. There is a moderate-sized plantar calcaneal spur without evidence of erosion or fracture. Labs on day of discharge: Labs from last 24 hours 04/18/20 04/18/20 04/17/20 07:00 07:00 09:11 WBC 5.47 RBC 3.73 L Hgb 11.6 Hct 33.8 L MCV 90.6 MCH 31.1 MCHC 34.3 RDW 13.5 Plt Count 113 L MPV 10.0 Immature Gran % 0.5 Neutrophils % 58.7 Lymphocytes % 24.3 Monocytes % 9.9 Eosinophils % 5.3 Basophils % 1.3 Absolute Neutrophils 3.21 Absolute Lymphocytes 1.33 Absolute Monocytes 0.54 Absolute Eosinophils 0.29 Absolute Basophils 0.07 Sodium 138 137 Potassium 4.1 4.4 D Chloride 103 102 Carbon Dioxide 32.5 H 29.3 Anion Gap 2.5 L 5.7 BUN 15 15 D Creatinine 0.75 0.77 Estimated GFR/1.73 m2 >= 60.00 >= 60.00 Glucose 132 H 160 H Lactate Calcium 8.7 8.4 L C-Reactive Protein Procalcitonin 04/17/20 04/17/20 04/17/20 08:33 08:33 08:33 WBC RBC Hgb Hct MCV MCH MCHC RDW Plt Count MPV Immature Gran % Neutrophils % Lymphocytes % Monocytes % Eosinophils % Basophils % Absolute Neutrophils Absolute Lymphocytes Absolute Monocytes Absolute Eosinophils Absolute Basophils Sodium Potassium Chloride Carbon Dioxide Anion Gap BUN Creatinine Estimated GFR/1.73 m2 Glucose Lactate 1.3 Calcium C-Reactive Protein 7.14 H Procalcitonin 2.0 04/17/20 08:33 WBC 6.14 RBC 4.00 Hgb 12.4 Hct 36.2 MCV 90.5 MCH 31.0 MCHC 34.3 RDW 13.6 Plt Count 124 L MPV 10.0 Immature Gran % 0.3 Neutrophils % 61.4 Lymphocytes % 20.5 Monocytes % 11.4 Eosinophils % 5.4 Basophils % 1.0 Absolute Neutrophils 3.77 Absolute Lymphocytes 1.26 Absolute Monocytes 0.70 Absolute Eosinophils 0.33 Absolute Basophils 0.06 Sodium Potassium Chloride Carbon Dioxide Anion Gap BUN Creatinine Estimated GFR/1.73 m2 Glucose Lactate Calcium C-Reactive Protein Procalcitonin Preliminary micro results at discharge 04/13/20 21:10 Blood Culture - Preliminary Blood NO GROWTH 96 HOURS 04/13/20 20:50 Blood Culture - Preliminary Blood NO GROWTH 96 HOURS [facility] Medical History Abdominal pain, chronic, epigastric (Resolved 03/23/16) Advance directive on file (Inactive) Annual physical exam (Resolved 02/22/18) Aortic stenosis, severe (Inactive) Bacteremia due to group B Streptococcus (Inactive) Bleeding esophageal varices (Resolved 03/10/16) Breast mass (Inactive) CAP (community acquired pneumonia) (Inactive) Carpal tunnel syndrome (Resolved) right; s/p release Cellulitis (Inactive) Cervical disc disorder with myelopathy (Resolved 09/04/12) Chronic epigastric pain (Chronic 03/23/16) DVT prophylaxis (Inactive) Edema, unspecified (Resolved) 06/28/16 B/L Elevation of level of transaminase and lactic acid dehydrogenase (LDH) (Chronic) Epistaxis (Inactive) Esophageal varices with hemorrhage Fever (Inactive) Fever, unknown origin (Resolved) 04/14/16 Fluid overload (Inactive) Foot pain (Inactive) GI bleed (Resolved) Gram-positive bacteremia (Inactive) Hepatic encephalopathy (Inactive 03/10/16) Hyperlipidemia (Inactive 09/04/12) Incisional hernia (Chronic 01/15/15) Increased body mass index (Inactive) Mild epistaxis (Resolved) 12/21/15 Nausea (Resolved) Pancytopenia (Inactive) Physical deconditioning (Inactive) Pneumonia (Suspected) Portal hypertension (Suspected) Sepsis (Inactive) Sepsis syndrome (Inactive) Thyroid nodule (Resolved) right; 2008-[facility] [place]; 2.3cm nodule; neg. biopsy Uninodular goiter Tubular adenoma (Inactive 04/12/13) Surgical History Colonoscopy - IV Sedation (04/12/13) DR. Bhumika CLAYTON Open Carpal Tunnel release RIGHT PROCEDURES OTHER CERVICAL FUS ANT discectomy 2008 [facility] [place]; NEGATIVE THYROID BX S/P carpal tunnel release (Resolved) right S/P cervical spinal fusion (Resolved) anterior; discectomy S/P cervical spinal fusion (Resolved) anterior;discectomy S/P tonsillectomy (Resolved) Status post biopsy of thyroid gland (Resolved) 09/18/08 neg Status post carpal tunnel release (Resolved) Status post cervical spinal arthrodesis (Resolved) Status post tonsillectomy (Resolved) Tonsillectomy Family History Mother Pancreatic cancer Father Diabetes Essential hypertension Stroke Sister Heart disease Brother Bone cancer Liver cancer Maternal Grandfather No problems noted. Paternal Grandfather No problems noted. Maternal Grandmother , OLD AGE at age 89. No problems noted. Paternal Grandmother Breast cancer Sister Diabetes Colon cancer Rectal cancer Sister Diabetes Son No problems noted. Son No problems noted. Daughter No problems noted. Daughter Alcohol abuse Asthma Social History Smoking/Tobacco Use Status: Former Tobacco Use Tobacco: How many years used: 2 Second Hand Exposure: Yes Alcohol Intake: never Drug use: Never Counseling given: No Household members: spouse and children Housing: house Communication Needs: None Do you need help understanding health information?: Never Pets and animals: Yes Pets and animals: dog(s) Sexually active: No Do you think of yourself as: straight/heterosexual Current gender identity: female What is your relationship status?: How often do you talk on the phone with friends or family?: three or more times per week How often do you get together with friends or relatives?: three or more times per week How often do you attend protestant or oriental orthodox services?: 1-3 times per year Do you belong to any clubs or organized social groups?: no Panel score (0-1 are the most socially isolated patients): 2 What type of physical activity do you participate in: none Lyubov/Sikh: Yarsanism Special lyubov needs: No Seatbelt use: always Helmet use: No Drive intox or ride w/intox delivery truck driver: No Do you feel safe at home: Yes Do you feel safe in your relationship?: Yes
[2020-04-18] MEDS: oxyCODONE 5 MG TAB PO (08:26)
[2020-04-18] MEDS: Pantoprazole 40 MG TABCR PO (08:28)
[2020-04-18] MEDS: Pregabalin 100 MG CAP PO (08:28)
[2020-04-18] MEDS: Sucralfate 1 GM TAB PO ×2 (08:28→11:40)
[2020-04-18] MEDS: Zinc Sulfate 220 MG TAB PO (08:28)
[2020-04-18] MEDS: Ferrous Sulfate 325 MG TAB PO (08:28)
[2020-04-18] MEDS: Lactulose 20 GM/30 ML CUP 10 GM PO (08:28)
[2020-04-18] MEDS: Rifaximin 550 MG TAB PO (08:28)
[2020-04-18] MEDS: Amoxicillin 875/Clav. 125 TAB PO (08:28)
[2020-04-18] MEDS: Nadolol 40 MG TAB PO (08:29)
[2020-04-18] MEDS: Spironolactone 50 MG TAB PO (08:29)
[2020-04-18] MEDS: Magnesium Oxide 400 MG TAB PO (10:18)
[2020-04-18] MEDS: Furosemide 20 MG TAB 40 MG PO (10:18)
--- NOTE | 2020-04-18 12:36 | PT.INTREAT ---
Date of service: 04/18/20 Time of Service: 11:40 PT Notes Visit Reasons: DIABETIC FOOT INFECTION Inpatient Physical Therapy Treatment Note [facility] Date: 04/18/2020 PRECAUTIONS:Fall, standard, activities as tolerated SUBJECTIVE: Stated she is going home later and did not want to walk during PT session today. Willing to do seated exercises. OBJECTIVE: PAIN: Did not complain of pain today. BED MOBILITY/TRANSFERS Sit-stand: Not performed Stand-sit: Not performed GAIT Held on walking per patient request THEREX: Performed ankle pumps, LAQs, seated hip flexion and adductor squeezes for 10 and 5 reps each. Discussed continuing with these exercises at home and walking to strengthening her LEs and prevent atrophy and increased swelling. ASSESSMENT: Tolerated today's ther exercises fair, but not appearing very motivated. PLAN: To be discharged home today. Recommend she continue with LE strengthening as indicated in ther ex portion of note. TREATMENT CODE/TIME: [id number], 11:40 to 12:00
--- NOTE | 2020-04-21 18:40 | PT.INDS ---
Date of service: 04/21/20 PT Notes Visit Reasons: DIABETIC FOOT INFECTION Inpatient Physical Therapy Discharge Summary Dates: 04/21/2020 Dates of Service: 04/15/2020 through 04/18/2020 This is a clinical summary of care provided on the duration of dates listed above. No charge was made in the completion of this documentation. Referring Doctor: Li Guerra NP PT Orders: PT CONSULT: Eval/Treat Precautions: Fall. Standard. Activity as tolerated. Patient Profile/Admitting Diagnosis: Mayra is a 65-year-old female with past medical history significant for hepatic encephalopathy, diabetes mellitus, and aortic stenosis who presented to the ED on 04/13/2020 with chief complaints of worsening pain and redness in the left leg and foot, fever and chills. Patient is diagnosed with cellulitis, L diabetic foot infection, increased d-dimer, and iron deficiency anemia. 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; s/p ACDF 2005 Cervical disc disorder with myelopathy (Resolved 09/04/12) Chronic epigastric pain (Chronic 03/23/16) DVT prophylaxis (Inactive) Edema, unspecified (Resolved) 06/28/16 B/L Elev transaminase/LDH (Resolved) Elevation of level of transaminase and lactic acid dehydrogenase (LDH) (Chronic) Epistaxis (Inactive) Esophageal varices with hemorrhage Fever (Inactive) Fever, unknown origin (Resolved) 04/14/16 GI bleed (Resolved) Hepatic encephalopathy Incisional hernia (Resolved 01/15/15) Incisional hernia (Chronic 01/15/15) Mild epistaxis (Resolved) 12/21/15 Sepsis (Inactive) Thyroid nodule (Resolved) right; 2008-[facility] [place]; 2.3cm nodule; neg. biopsy Uninodular goiter Surgical History Colonoscopy - IV Sedation (04/12/13) DR. Bhumika CLAYTON Open Carpal Tunnel release RIGHT OTHER CERVICAL FUS ANT discectomy 2008 [facility] [place]; NEGATIVE THYROID BX S/P carpal tunnel release (Resolved) right S/P cervical spinal fusion (Resolved) anterior; discectomy S/P cervical spinal fusion (Resolved) anterior;discectomy S/P tonsillectomy (Resolved) Status post biopsy of thyroid gland (Resolved) 09/18/08 neg Status post carpal tunnel release (Resolved) Status post cervical spinal arthrodesis (Resolved) Status post tonsillectomy (Resolved) Tonsillectomy Social History/Home Situation: Patient lives with and daughter in a private home with 3 steps to enter and rails on both sides. She is independent with all aspects of ADLs without the need for assistive ambulatory device or adaptive equipment prior to admission. She has not had any falls for the past 12 months. Equipment Owned/DME: None Subjective: NT. See most recent TRANSACTION PROCESSOR notes. Objective: General Observation: NT. See most recent TRANSACTION PROCESSOR notes. Mental Status: NT. See most recent TRANSACTION PROCESSOR notes. Pain: NT. See most recent TRANSACTION PROCESSOR notes. ROM: Right Upper Extremity: Shoulder Flexion WFL. Shoulder abduction WFL. Elbow flexion WFL. Wrist flexion WFL. Opening and closing of hand WFL. Left Upper Extremity: Shoulder Flexion WFL. Shoulder abduction WFL. Elbow flexion WFL. Wrist flexion WFL. Opening and closing of hand WFL. Right Lower Extremity: Hip flexion WFL. Hip abduction WFL. Knee flexion WFL. Ankle dorsiflexion WFL. Ankle plantarflexion WFL. Left Lower Extremity: Hip flexion WFL. Hip abduction WFL. Knee flexion WFL. Ankle dorsiflexion WFL. Ankle plantarflexion WFL. Strength: Right Upper Extremity: Shoulder flexors 5/5. Shoulder abductors 5/5. Elbow flexors 5/5. Elbow extensors 5/5. Fence Manufacture Supervisor strong. Left Upper Extremity: Shoulder flexors 5/5. Shoulder abductors 5/5. Elbow flexors 5/5. Elbow extensors 5/5. Fence Manufacture Supervisor strong. Right Lower Extremity: Hip flexors 4/5. Hip abductors 4/5. Knee flexors 4/5. Knee extensors 4/5. Ankle dorsiflexors 4/5. Ankle plantarflexors 4/5. Left Lower Extremity: Hip flexors 4/5. Hip abductors 4/5. Knee flexors 4/5. Knee extensors 4/5. Ankle dorsiflexors 4/5. Ankle plantarflexors 4/5. Sensation: Intact as to pain and pressure on bilateral lower extremities, reports frequent sensation on the soles of the feet and the dorsum of the toes. Bed Mobility/Transfers: Sit to stand supervision requires use of front wheeled walker Stand to sit supervision requires use of front wheeled walker Bed to chair supervision requires use of front wheeled walker Chair to bed supervision requires use of front wheeled walker Gait: Patient tolerated level surface ambulation of 260 feet using front wheeled walker with supervision. Reciprocal swing through gait pattern. Balance: Static Sitting: Normal Dynamic Sitting: Normal Static Standing: Fair Dynamic Standing: Fair Assessment: Mayra continues to demonstrate the need for assistive ambulatory device for all mobility ADL performance, functional mobility decline, decreased activity tolerance, and generalized weakness of bilateral lower extremities due to admitting diagnoses. Mayra is a 65-year-old female with past medical history significant for hepatic encephalopathy, diabetes mellitus, and aortic stenosis who presented to the ED on 04/13/2020 with chief complaints of worsening pain and redness in the left leg and foot, fever and chills. Patient is diagnosed with cellulitis, L diabetic foot infection, increased d-dimer, and iron deficiency anemia. Patient continues to present with clinical signs and symptoms consistent with current/admitting diagnoses that have resulted to mobility limitations, gait instability, and generalized weakness as demonstrated by the following impairment level findings: 1. Decreased strength to B LE major muscle groups 2. Swelling and pain B LE with L >> 3. Impaired activity tolerance Impairments are continuing to contribute to the following functional limitations: 1. Inability to safely ambulate without assistive device and physical assistance 2. Increase completion time for mobility ADL performance 3. Inability to negotiate steps alone safely Goals: Goals X3 days 1. Supine-Sit independent NOT MET 2. Sit-Supine independent NOT MET 3. Sit-Stand independent NOT MET 4. Stand-Sit independent NOT MET 5. Bed-Chair independent NOT MET 6. Chair-Bed independent NOT MET 7. Independent gait on level surface with use of no device for at least 300 feet without report of pain nor dyspnea NOT MET 8. Independent stair negotiation while holding onto bilateral rails for at least 10 steps without report of pain nor dyspnea NOT MET 9. Independent with home exercise program NOT MET 10. Good static and dynamic standing balance/tolerance NOT MET DISCHARGE RECOMMENDATIONS: Home when medically cleared. Will require use of front wheeled walker to off-load painful left lower extremity. TREATMENT CODE/TIME: NC Thank you very much for this referral. Gill Hill PT, DPT, CLT [facility] [place], [place]
== END 2020-04-18 13:36 | disposition home or self-care (01) | DRG 638 ==
LOC: ER 23:00 → MS 23:16
PROVIDERS: Internal Medicine; Nurse Practitioner Acute Care; Nurse Practitioner Family; Admitting Provider General Practice; Emergency Provider Emergency Medicine; PCP Family Medicine; Visit Provider General Practice
DX: E11.628 Type 2 diabetes mellitus with other skin complications (principal); L03.116 Cellulitis of left lower limb; Z68.41 Body mass index [BMI] 40.0-44.9, adult; D68.9 Coagulation defect, unspecified; L97.528 Non-pressure chronic ulcer of other part of left foot with other specified severity; E11.621 Type 2 diabetes mellitus with foot ulcer; I10 Essential (primary) hypertension; K74.60 Unspecified cirrhosis of liver; I35.0 Nonrheumatic aortic (valve) stenosis; R50.9 Fever, unspecified; K72.90 Hepatic failure, unspecified without coma; E04.1 Nontoxic single thyroid nodule; I89.0 Lymphedema, not elsewhere classified; D50.9 Iron deficiency anemia, unspecified; E66.3 Overweight
CPT/HCPCS: 36410; 36415; 80048; 80053; 84145; 85027; 87040; 96365; 96367; 97110; 97162; 97530; 99222; 99233; 99239; 99285; J1650; U0003; 71046; 73630; 80202; 81003; 81015; 82140; 82248; 83605; 83735; 83880; 85025; 85379; 85610; 85730; 86140; 87086; 93971; 99218; 99284; G0378; J1644; J2543

== ENCOUNTER 2020-08-07 00:44 | Inpatient (IN) | payer MEDICARE, BC, SELFPAY ==
[2020-08-07] VITALS (31 sets, daily range): BP systolic 106–188; BP diastolic 39–79; PULSE 71–117; RESP 16–28; TEMP 36–37.9; O2SAT 90–96
--- NOTE | 2020-08-07 00:45 | ED.GENADUL_ITS ---
Discharge Plan Disposition Patient Disposition: [facility] INPATIENT Condition: Poor Discharge Details Clinical Impression: Sepsis, Diabetic foot infection, Cellulitis Primary Care Provider: Malu Baron ED Provider: Benny Cui [place] Meds and New Rx's Prescriptions: No Action (DME) OneTouch Ultra Test strip 1 ea Miscellaneous QID Qty: 300 RF: 5 Xifaxan 550 mg tablet 550 mg PO BID Qty: 180 RF: 2 sucralfate 1 gram tablet 1 gm PO AC & HS Qty: 360 RF: 12 amlodipine 5 mg tablet 5 mg PO DAILY Qty: 90 RF: 5 oxycodone 5 mg tablet 5 mg PO BID MDD 3 PRN (Reason: pain) Qty: 15 RF: 0 ferrous sulfate [iron] 325 mg (65 mg iron) tablet 325 mg PO DAILY RF: 0 furosemide 20 mg tablet 40 mg PO DAILY Qty: 180 RF: 12 pantoprazole 40 mg tablet,delayed release (DR/EC) 40 mg PO DAILY Qty: 180 RF: 3 ammonium lactate 12 % lotion 1 applic topical BID RF: 0 zinc sulfate 220 MG capsule 220 mg PO DAILY Qty: 90 RF: 3 (DME) pen needle, diabetic [BD Ultra-Fine Orig Pen Needle] 1 EACH needle 1 ea Miscellaneous BID Qty: 180 RF: 3 pregabalin 100 mg capsule 100 mg PO TID Qty: 270 RF: 4 triamcinolone acetonide 0.1 % cream 1 applic TP QID Qty: 80 RF: 1 ondansetron HCl [Zofran] 4 mg tablet 4 mg PO DAILY PRN (Reason: nausea and vomiting) Qty: 90 RF: 3 fluocinonide 0.05 % ointment 1 applic TOPICAL DAILY RF: 0 lactulose 20 gram/30 mL Solution 10 g PO TID RF: 0 nadolol 40 mg tablet 40 mg PO DAILY Qty: 30 RF: 0 spironolactone 50 mg tablet 50 mg PO DAILY Qty: 30 RF: 0 Medical Decision Making Patient presenting with fever and shaking chills likely associated with lower extremity infection/cellulitis. She has no cough and lungs are clear. Abdomen is benign. She has no urinary symptoms. Will obtain portable chest x-ray and straight cath urine. Blood cultures x2. Patient has prior history of strep bacteremia/sepsis. Also has significant aortic stenosis. Will start Zosyn and vancomycin as soon as blood and urine obtained. Doubt Covid but since will require admission will send swab. Will discuss with hospitalist. Fluids ordered as she is tachycardic though she is hypertensive not hypotensive. History of cirrhosis but no history of ascites. No history of kidney disease. Patient laboratory studies unremarkable. Baseline LFT abnormalities. Normal kidney function. Normal white count. Lactic acid only slightly up to 1.2. Urinalysis with blood only, straight cath specimen. Chest x-ray with cardiomegaly and vascular congestion. Questionable changes with possibility of mild edema versus infiltrate right lobe per preliminary radiology read. Tonight's x-ray does not look significantly different compared to previous per my review. She has no cough or shortness of breath. Still suspect lower extremity cellulitis/diabetic foot infection as source. Case discussed with hospitalist. Patient remained mildly tachycardic but has continued to have viral vated blood pressure. She will be admitted to telemetry. Medical Records Medical records reviewed: Yes I reviewed the patient's medical records. Lab Data Lab results reviewed: Yes I reviewed the patient's lab results. ECG Data Attestation: I personally reviewed and interpreted this ECG (s) as follows: Interpretation: see EKG HPI General Mode of arrival: wheelchair . Date/Time Provider Initiated Documentation: 08/07/20 00:45 . Limitations to Documentation: no limitations . Information obtained by: patient, RN notes reviewed and old records reviewed . HPI Narrative: Patient presents to ED with onset of fever, chills tonight. She has previous problems with her feet/legs with resultant infection and cellulitis. She has diagnosis of elephantiasis. She is also diabetic. She has had 2 previous admissions this year requiring Vanco and Zosyn to treat infection. She does complain of left foot and leg pain. She denies headache, cough, shortness of breath, chest pain, abdominal pain. She denies urinary symptoms. She does have nausea. No vomiting or diarrhea. No known Covid exposures. She mostly stays home. Related Data Home Medications Medication Instructions Recorded Confirmed zinc sulfate 220 mg PO DAILY #90 tab-cap 01/10/17 08/07/20 pen needle, diabetic [BD #180 12/18/17 07/20/20 Ultra-Fine Orig Pen Needle] ferrous sulfate 325 mg (65 mg 325 mg PO DAILY tab 06/11/18 08/07/20 iron) tablet blood sugar diagnostic #300 strip 09/13/18 07/20/20 rifaximin 550 mg tablet 550 mg PO BID #180 tab 11/12/19 08/07/20 sucralfate 1 gram tablet 1 gm PO AC & HS #360 tab 11/12/19 08/07/20 lactulose 10 g PO TID 02/18/20 08/07/20 nadolol 40 mg PO DAILY #30 tab 02/20/20 08/07/20 spironolactone 50 mg PO DAILY #30 tab 02/20/20 08/07/20 furosemide 20 mg tablet 40 mg PO DAILY #180 cap 03/02/20 08/07/20 pantoprazole 40 mg tablet,delayed 40 mg PO DAILY #180 tab 03/02/20 08/07/20 release amlodipine 5 mg tablet 5 mg PO DAILY #90 tab 04/21/20 08/07/20 pregabalin 100 mg capsule 100 mg PO TID #270 cap 05/10/20 08/07/20 ammonium lactate 12 % lotion 1 applic TOPICAL BID 06/08/20 07/20/20 triamcinolone acetonide 0.1 % 1 applic TP QID #80 gm 07/12/20 08/07/20 topical cream oxycodone 5 mg tablet 5 mg PO BID PRN #15 tab MDD 3 07/20/20 08/07/20 ondansetron HCl 4 mg tablet 4 mg PO DAILY PRN #90 tab-cap 07/29/20 08/07/20 fluocinonide 1 applic TOPICAL DAILY 08/07/20 08/07/20 Previous Rx's Medication Instructions Recorded pen needle, diabetic [BD #180 12/18/17 Ultra-Fine Orig Pen Needle] blood sugar diagnostic #300 strip 09/13/18 rifaximin 550 mg tablet 550 mg PO BID #180 tab 11/12/19 sucralfate 1 gram tablet 1 gm PO AC & HS #360 tab 11/12/19 nadolol 40 mg PO DAILY #30 tab 02/20/20 spironolactone 50 mg PO DAILY #30 tab 02/20/20 furosemide 20 mg tablet 40 mg PO DAILY #180 cap 03/02/20 pantoprazole 40 mg tablet,delayed 40 mg PO DAILY #180 tab 03/02/20 release amlodipine 5 mg tablet 5 mg PO DAILY #90 tab 04/21/20 pregabalin 100 mg capsule 100 mg PO TID #270 cap 05/10/20 triamcinolone acetonide 0.1 % 1 applic TP QID #80 gm 07/12/20 topical cream oxycodone 5 mg tablet 5 mg PO BID PRN #15 tab MDD 3 07/20/20 ondansetron HCl 4 mg tablet 4 mg PO DAILY PRN #90 tab-cap 07/29/20 Allergies Allergy/AdvReac Type Severity Reaction Status Date / Time gabapentin Allergy Intermediate Local Unverified 07/20/20 13:37 reaction on skin lisinopril AdvReac Itching Verified 07/20/20 13:37 General JÚNIOR: 3 Review of Systems Narrative: 07/01 Review of Systems completed and is negative except as stated above in HPI (Systems reviewed: Const, Eyes, ENT, Resp, CV, GI, , MSK, Skin, Neuro) [facility] Medical History (Updated 08/07/20 @ 02:23 by Benny Cui MD) Abdominal pain, chronic, epigastric (03/23/16) Advance directive on file Annual physical exam (02/22/18) Aortic stenosis, severe Bacteremia due to group B Streptococcus Bleeding esophageal varices (03/10/16) Breast mass CAP (community acquired pneumonia) Carpal tunnel syndrome right; s/p release Cellulitis Cervical disc disorder with myelopathy (09/04/12) Chronic epigastric pain (03/23/16) DVT prophylaxis Edema, unspecified 06/28/16 B/L Elevation of level of transaminase and lactic acid dehydrogenase (LDH) Epistaxis Esophageal varices with hemorrhage Fever Fever, unknown origin 04/14/16 Fluid overload Foot pain GI bleed Gram-positive bacteremia Hepatic encephalopathy (03/10/16) Hyperlipidemia (09/04/12) Incisional hernia (01/15/15) Increased body mass index Mild epistaxis 12/21/15 Nausea Pancytopenia Physical deconditioning Pneumonia Portal hypertension Sepsis Sepsis syndrome Thyroid nodule right; 2008-[facility]; 2.3cm nodule; neg. biopsy Uninodular goiter Tubular adenoma (04/12/13) Surgical History Colonoscopy - IV Sedation (04/12/13) DR. Bhumika CLAYTON Open Carpal Tunnel release RIGHT PROCEDURES OTHER CERVICAL FUS ANT discectomy 2008 [facility] [place]; NEGATIVE THYROID BX S/P carpal tunnel release right S/P cervical spinal fusion anterior; discectomy S/P cervical spinal fusion anterior;discectomy S/P tonsillectomy Status post biopsy of thyroid gland 09/18/08 neg Status post carpal tunnel release Status post cervical spinal arthrodesis Status post tonsillectomy Tonsillectomy Family History Mother Pancreatic cancer Father Diabetes Essential hypertension Stroke Sister Heart disease Brother Bone cancer Liver cancer Maternal Grandfather No problems noted. Paternal Grandfather No problems noted. Maternal Grandmother , OLD AGE at age 89. No problems noted. Paternal Grandmother Breast cancer Sister Diabetes Colon cancer Rectal cancer Sister Diabetes Son No problems noted. Son No problems noted. Daughter No problems noted. Daughter Alcohol abuse Asthma Social History Smoking/Tobacco Use Status: Former Tobacco Use Tobacco: How many years used: 2 Second Hand Exposure: Yes Smoking risk assessment performed?: Yes Alcohol Intake: never Drug use: Never Counseling given: No Household members: spouse and children Housing: house Communication Needs: None Do you need help understanding health information?: Rarely Pets and animals: Yes Pets and animals: dog(s) Sexually active: No Do you think of yourself as: straight/heterosexual Current gender identity: female What is your relationship status?: How often do you talk on the phone with friends or family?: three or more times per week How often do you get together with friends or relatives?: once per week How often do you attend hoahaoism or sikhism services?: 1-3 times per year Do you belong to any clubs or organized social groups?: no Panel score (0-1 are the most socially isolated patients): 2 What type of physical activity do you participate in: decline to answer Duration: < 15 minutes/day Frequency: 1-2 times per week Lyubov/Mandaeism: Restoration Special lyubov needs: No Seatbelt use: always Helmet use: No Drive intox or ride w/intox dinkey driver: No Do you feel safe at home: Yes Do you feel safe in your relationship?: Yes Exam Narrative Exam Narrative: Const: Obese female in NAD but with rigors. HEENT: NC/AT. Normal facial exam. Eyes: Normal conjunctiva and sclera. Neck: Supple. Trachea midline. Lungs: Normal respiratory effort. Lungs are clear. Cor: RRR with loud murmur. Good radial pulses. GI: Soft. NT/ND. No guarding or rebound. Neuro: A+O x 3. Normal speech, mentation. Cranial nerves II - XII grossly intact. No gross motor or sensory deficit. Generaly weak. Ext: Bilateral lower extremity edema with thick skin. Dark discoloration. Hot to touch left greater than right. Left foot with weeping erythematous area on the dorsum. Skin: no rashes Critical Care Time Critical Care Time Critical Care Time: Yes Total Critical Care Time: 45 Attestation: Sepsis Upon my evaluation, this patient had a high probability of imminent or life- threatening deterioration, which required my direct attention, intervention, and personal management. I have personally provided 45 minutes of critical care time exclusive of time spent on separately billable procedures. Time includes review of laboratory data, radiology results, discussion with consultants, and monitoring for potential decompensation. Interventions were performed as documented above.
[2020-08-07] MEDS: Lactated Ringers 1,000 ML 1000 ML IV ×2 (01:15→02:29)
--- NOTE | 2020-08-07 01:15 | RT.EKG_ITS ---
APPROVED REPORT Exam: Resting ECG Patient Location: E HR:109 bpm ECG Measurements Heart Rate 109 AXIS RI 151 P 63 QRSd 103 QRS 50 QT 346 T 32 QTc 466 Conclusion Sinus tachycardia...rate> 99 Atrial premature complex...SV complex w/ short R-R interval Borderline ST depression, diffuse leads...ST <-0.07mV, ant/lat/inf ST changes likely rate related Normal [place]
--- NOTE | 2020-08-07 01:32 | DI.RAD_ITS ---
EXAM: XR PORTABLE CHEST AP CLINICAL HISTORY: fever TECHNIQUE: 2D digital imaging was performed. COMPARISON: No exams were available for comparison FINDINGS: MEDIASTINUM: Normal. HEART: Given the AP projection, the heart size is within normal limits. PULMONARY VASCULATURE: Stable appearance of the pulmonary vasculature which is prominent and may be c hronic. LUNGS: Prominence of the interstitium which appears unchanged and is likely chronic. No focal consol idating infiltrates. PLEURAL SPACE: No pleural effusion or pneumothorax. BONE:Within normal limits for the patient's age. OTHER FINDINGS:Normal. IMPRESSION: No definite acute pulmonary process. DATA REPOSITORY: RADIATION DOSE DELIVERED:
[2020-08-07 01:40] LABS: Abs Immature Grans 0.02 10^3/uL (0.0-0.06); Absolute Basophil Count 0.06 10^3/uL (0.0-0.2); Absolute Eosinophil Count 0.18 10^3/uL (0.0-0.7); Absolute Lymphocyte Count 0.73 10^3/uL (1.2-3.4); Absolute Monocyte Count 0.37 10^3/uL (0.1-0.8); Absolute Neutrophil Count 6.05 10^3/uL (1.2-6.7); Basophils % 0.8; Eosinophils % 2.4; HCT 37.9 % (36.0-46.0); HGB 12.7 g/dL (11.2-15.7); Immature Grans % 0.3; Lactate 2.2 mmol/L (0.6-1.4); Lymphocytes % 9.9; MCH 31.1 pg (27.0-33.0); MCHC 33.5 % (32.0-36.0); MCV 92.9 fL (80-95); MPV 10.2 fL (8.0-11.0); Neutrophils % 81.6; Nucleated RBC 0 %; Platelet Count 86 10^3/uL (130-400); RBC 4.08 10^6/uL (3.93-5.22); RDW 14.6 % (11.7-14.6); WBC 7.41 10^3/uL (4.4-10.8)
[2020-08-07 01:45] LABS: Bilirubin Small (Negative); Blood Large (Negative); Clarity Clear (Clear); Glucose 100 mg/dL (Negative); Ketones Negative (Negative); Leukocyte Esterase Negative (Negative); Nitrite Negative (Negative); Urobilinogen 0.2 EU/dL (Up TO 0.2)
[2020-08-07] MEDS: VANCOMYCIN 2,000 MG in Normal Saline 500 ML 333.3333 MG IVPB (01:50)
[2020-08-07 01:56] LABS: Bacteria Negative HPF (Negative); C & S Indicated? No; Casts Negative LPF (Negative); Crystals Negative HPF (Negative); Epithelial Cells Few HPF (Negative); Mucus Moderate (Negative); Other Cells Negative (Negative); RBC 20-50 HPF (0-2); WBC 0-2 HPF (0-5)
[2020-08-07 01:56] LABS: ALT 42 U/L (14-59); AST 60 U/L (15-37); Albumin 2.5 g/dL (3.4-5.0); Alkaline Phosphatase 224 U/L (46-116); Anion Gap 2.3 mmol/L (3-11); BUN 12 mg/dL (7-18); Bilirubin, Total 3.4 mg/dL (0.2-1.0); CO2 32.7 mmol/L (21.0-32.0); CREATININE 0.76 mg/dL (0.55-1.02); Calcium 8.4 mg/dL (8.5-10.1); Chloride 104 mmol/L (98-107); Glucose 222 mg/dL (74-106); Potassium 4.1 mmol/L (3.5-5.1); Sodium 139 mmol/L (136-145); Total Protein 6.4 g/dL (6.4-8.2)
[2020-08-07] MEDS: PIPERACILLIN/TAZO 3.375 GM in Normal Saline 50 ML IVPB ×4 (01:57→19:50)
--- NOTE | 2020-08-07 01:58 | DI.VRAD_ITS ---
PROCEDURE INFORMATION: Exam: XR Chest, 1 View Exam date and time: 08/07/2020 1:32 AM Age: 65 years old Clinical indication: Fever TECHNIQUE: Imaging protocol: XR of the chest Views: 1 view. COMPARISON: CR XR CHEST 2V PA LATERAL 04/13/2020 9:26 PM FINDINGS: Lungs: Normal pulmonary expansion. Moderate central vascular congestion. Question mild interstitial prominence in the perihilar distributions and faint alveolar density in the right base. This could relate to mild pulmonary edema or pneumonia. Pleural space: No pleural effusion. No pneumothorax. Heart/Mediastinum: Mild cardiomegaly. No tracheal/mediastinal shift. Bones/joints: No acute osseous abnormalities are identified. Cervical fusion hardware without gross hardware complication or change. IMPRESSION: 1. The radiographic appearance is similar to the previous exam 04/13/2020. 2. There is borderline cardiomegaly and moderate central vascular congestion suggesting an element of CHF. 3. There is mild alveolar density in the right base and perihilar interstitial prominence which could reflect mild pulmonary edema secondary to CHF, or possibly mild right basilar pneumonia. Dictated and Authenticated by: Noel Pascal MD. Ordering:STEVIE Zapata MD
[2020-08-07 02:15] LABS: Diff Comment Diff Reviewed; RBC Morphology Normal
--- NOTE | 2020-08-07 06:09 | HPE_ITS ---
Date of service: 08/07/20 Time of Service: 06:10 Assessment and Plan Assessment and plan (1) Sepsis: Status: Acute Assessment and plan: Fever, elevated lactate, tachycardia. Etiology appears to be LLE cellulitis. Zosyn and Vancomycin initiated. 2L LR given in ED. Monitor for signs/symtoms of fluid overload. Qualifiers: Sepsis type: sepsis due to unspecified organism Sepsis acute organ dysfunction status: without acute organ dysfunction Qualified Code(s): A41.9 - Sepsis, unspecified organism (2) Elephantiasis nostra verrucosa: Status: Acute Assessment and plan: Predisposing factor for recurrence of LE cellulitis. Wound care; uses topical lac hydrin and steroids. (3) Cellulitis: Status: Acute Assessment and plan: LLE cellulitis. Zosyn and Vancomycin initiated. No WBC elevation but evidence of sepsis. (4) DVT prophylaxis: Status: Acute Assessment and plan: Cautiously initiated heparin in background of cirrhosis with previous bleeding varices and thrombocytopenia. Monitor platelets. (5) Diabetes mellitus: Status: Chronic Assessment and plan: Patient is not on oral diabetic medication or insulin. Glucose 222. SS correction insulin dosage ordered. Diabetic diet. Qualifiers: Diabetes mellitus type: type 2 Diabetes mellitus assisted insulin use: without terminal makeup operator use Diabetes mellitus complication status: without complication Qualified Code(s): E11.9 - Type 2 diabetes mellitus without complications (6) Cirrhosis: Status: Chronic Assessment and plan: Cont Rifaximin, sprionolactone, Nadolol. Qualifiers: Hepatic cirrhosis type: other cirrhosis Qualified Code(s): K74.69 - Other cirrhosis of liver History of Present Illness History of Present Illness Chief Complaint: fever and chills Narrative: This is a 65 yo female with a PMH of BLE elephantiasis, DM, cirrhosis, aortic stenosis, recurrent cirrhosis, recurrent cellulitis. She presented to the ED after experiencing a fever and chills at home the night of admission. Temperature at time of admission was 37.8C. She also endorsed left leg and foot pain. No cough/sputum, dysuria, N/V. No known COVID-19 exposure. Her WBC count was normal. venous lactate high at 2.2. CXR showed similar findings compared to last CXR; moderate central vascular congestion. Also noted, mild alveolar density in the R base and perihilar interstitial promincence; pulmonary edema vs R basilar PNA. She was given 2L Lactated Ringers in the ED. Zosyn and vancomycin initiated in the ED. Review of Systems All systems reviewed & are unremarkable except as noted in HPI and below [facility]LY [facility] Medical History (Updated 08/07/20 @ 06:27 by Sabino Hooper MD) Abdominal pain, chronic, epigastric (03/23/16) Advance directive on file Annual physical exam (02/22/18) Aortic stenosis, severe Bacteremia due to group B Streptococcus Bleeding esophageal varices (03/10/16) Breast mass CAP (community acquired pneumonia) Carpal tunnel syndrome right; s/p release Cellulitis Cervical disc disorder with myelopathy (09/04/12) Chronic epigastric pain (03/23/16) DVT prophylaxis Edema, unspecified 06/28/16 B/L Elevation of level of transaminase and lactic acid dehydrogenase (LDH) Epistaxis Esophageal varices with hemorrhage Fever Fever, unknown origin 04/14/16 Fluid overload Foot pain GI bleed Gram-positive bacteremia Hepatic encephalopathy (03/10/16) Hyperlipidemia (09/04/12) Incisional hernia (01/15/15) Increased body mass index Mild epistaxis 12/21/15 Nausea Pancytopenia Physical deconditioning Pneumonia Portal hypertension Sepsis Sepsis syndrome Thyroid nodule right; 2008-[facility] [place]; 2.3cm nodule; neg. biopsy Uninodular goiter Tubular adenoma (04/12/13) Surgical History Colonoscopy - IV Sedation (04/12/13) DR. Bhumika CLAYTON Open Carpal Tunnel release RIGHT PROCEDURES OTHER CERVICAL FUS ANT discectomy 2008 [facility] [place]; NEGATIVE THYROID BX S/P carpal tunnel release right S/P cervical spinal fusion anterior; discectomy S/P cervical spinal fusion anterior;discectomy S/P tonsillectomy Status post biopsy of thyroid gland 09/18/08 neg Status post carpal tunnel release Status post cervical spinal arthrodesis Status post tonsillectomy Tonsillectomy Family History Mother Pancreatic cancer Father Diabetes Essential hypertension Stroke Sister Heart disease Brother Bone cancer Liver cancer Maternal Grandfather No problems noted. Paternal Grandfather No problems noted. Maternal Grandmother , OLD AGE at age 89. No problems noted. Paternal Grandmother Breast cancer Sister Diabetes Colon cancer Rectal cancer Sister Diabetes Son No problems noted. Son No problems noted. Daughter No problems noted. Daughter Alcohol abuse Asthma Social History Smoking/Tobacco Use Status: Former Tobacco Use Tobacco: How many years used: 2 Second Hand Exposure: Yes Smoking risk assessment performed?: Yes Alcohol Intake: never Drug use: Never Counseling given: No Household members: spouse and children Housing: house Communication Needs: None Do you need help understanding health information?: Rarely Pets and animals: Yes Pets and animals: dog(s) Sexually active: No Do you think of yourself as: straight/heterosexual Current gender identity: female What is your relationship status?: How often do you talk on the phone with friends or family?: three or more times per week How often do you get together with friends or relatives?: once per week How often do you attend caodaism or jainism services?: 1-3 times per year Do you belong to any clubs or organized social groups?: no Panel score (0-1 are the most socially isolated patients): 2 What type of physical activity do you participate in: decline to answer Duration: < 15 minutes/day Frequency: 1-2 times per week Lyubov/Baptism: Islam Special lyubov needs: No Seatbelt use: always Helmet use: No Drive intox or ride w/intox driver messenger: No Do you feel safe at home: Yes Do you feel safe in your relationship?: Yes Meds Home Medications and Allergies Home Medications Medication Instructions Recorded Confirmed Type zinc sulfate 220 mg PO DAILY #90 tab-cap 01/10/17 08/07/20 History pen needle, diabetic [BD #180 12/18/17 07/20/20 Rx Ultra-Fine Orig Pen Needle] ferrous sulfate 325 mg (65 mg 325 mg PO DAILY tab 06/11/18 08/07/20 History iron) tablet blood sugar diagnostic #300 strip 09/13/18 07/20/20 Rx rifaximin 550 mg tablet 550 mg PO BID #180 tab 11/12/19 08/07/20 Rx sucralfate 1 gram tablet 1 gm PO AC & HS #360 tab 11/12/19 08/07/20 Rx lactulose 10 g PO TID 02/18/20 08/07/20 History nadolol 40 mg PO DAILY #30 tab 02/20/20 08/07/20 Rx spironolactone 50 mg PO DAILY #30 tab 02/20/20 08/07/20 Rx furosemide 20 mg tablet 40 mg PO DAILY #180 cap 03/02/20 08/07/20 Rx pantoprazole 40 mg tablet,delayed 40 mg PO DAILY #180 tab 03/02/20 08/07/20 Rx release amlodipine 5 mg tablet 5 mg PO DAILY #90 tab 04/21/20 08/07/20 Rx pregabalin 100 mg capsule 100 mg PO TID #270 cap 05/10/20 08/07/20 Rx ammonium lactate 12 % lotion 1 applic TOPICAL BID 06/08/20 07/20/20 History triamcinolone acetonide 0.1 % 1 applic TP QID #80 gm 07/12/20 08/07/20 Rx topical cream oxycodone 5 mg tablet 5 mg PO BID PRN #15 tab MDD 3 07/20/20 08/07/20 Rx ondansetron HCl 4 mg tablet 4 mg PO DAILY PRN #90 tab-cap 07/29/20 08/07/20 Rx fluocinonide 1 applic TOPICAL DAILY 08/07/20 08/07/20 History Allergies Allergy/AdvReac Type Severity Reaction Status Date / Time gabapentin Allergy Intermediate Local Unverified 07/20/20 13:37 reaction on skin lisinopril AdvReac Itching Verified 07/20/20 13:37 Exam Const General: cooperative, no acute distress and lethargic Nutritional Appearance: obese Orientation: oriented x3 HENTN Head: normocephalic and atraumatic Neck Neck: full ROM Resp Effort & Inspection: normal respiratory effort Auscultation: clear to auscultation bilaterally Cardio Rate: tachycardic Rhythm: regular rhythm Heart Sounds: S1 normal, S2 normal and murmur systolic holo GI Inspection: obesity Palpation: soft and nontender Auscultation: normal bowel sounds Skin General skin exam: erythema (LLE; bush to dorsum of foot with weeping of serous fluid on dorsum of foot.) and hypertrophy (BLE below the knee.) Neuro General: patient awake, patient oriented x3 and moves all extremities Speech: other (slowed speech. Verbalizes minimally.) Results Labs Result diagrams: 08/07/20 01:20 08/07/20 01:20 Labs: Laboratory Results - last 24 hr 08/07/20 08/07/20 08/07/20 01:20 01:20 01:20 WBC 7.41 RBC 4.08 Hgb 12.7 Hct 37.9 MCV 92.9 MCH 31.1 MCHC 33.5 RDW 14.6 Plt Count 86 L MPV 10.2 Immature Gran % 0.3 Neutrophils % 81.6 Lymphocytes % 9.9 Monocytes % 5.0 Eosinophils % 2.4 Basophils % 0.8 Nucleated RBC % 0 Absolute Neutrophils 6.05 Absolute Lymphocytes 0.73 L Absolute Monocytes 0.37 Absolute Eosinophils 0.18 Absolute Basophils 0.06 RBC Morphology Normal VBG Lactate 2.2 H* Sodium 139 Potassium 4.1 Chloride 104 Carbon Dioxide 32.7 H Anion Gap 2.3 L BUN 12 Creatinine 0.76 Estimated GFR/1.73 m2 >= 60.00 Glucose 222 H Calcium 8.4 L Total Bilirubin 3.4 H AST 60 H ALT 42 Alkaline Phosphatase 224 H Total Protein 6.4 Albumin 2.5 L Urine Color Urine Clarity Urine pH Ur Specific [place] Urine Protein Urine Ketones Urine Blood Urine Nitrite Urine Bilirubin Urine Urobilinogen Ur Leukocyte Esterase Urine RBC Urine WBC Ur Epithelial Cells Urine Crystals Urine Bacteria Urine Casts Urine Mucus Urine Other Ur Culture Indicated? Urine Glucose 08/07/20 01:25 WBC RBC Hgb Hct MCV MCH MCHC RDW Plt Count MPV Immature Gran % Neutrophils % Lymphocytes % Monocytes % Eosinophils % Basophils % Nucleated RBC % Absolute Neutrophils Absolute Lymphocytes Absolute Monocytes Absolute Eosinophils Absolute Basophils RBC Morphology VBG Lactate Sodium Potassium Chloride Carbon Dioxide Anion Gap BUN Creatinine Estimated GFR/1.73 m2 Glucose Calcium Total Bilirubin AST ALT Alkaline Phosphatase Total Protein Albumin Urine Color Yellow Urine Clarity Clear Urine pH 7.0 Ur Specific [place] 1.020 Urine Protein 100 H Urine Ketones Negative Urine Blood Large H Urine Nitrite Negative Urine Bilirubin Small H Urine Urobilinogen 0.2 Ur Leukocyte Esterase Negative Urine RBC 20-50 H Urine WBC 0-2 Ur Epithelial Cells Few Urine Crystals Negative Urine Bacteria Negative Urine Casts Negative Urine Mucus Moderate Urine Other Negative Ur Culture Indicated? No Urine Glucose 100 Last Vital Signs Temp 37.7 C H 08/07/20 05:55 Pulse 117 H 08/07/20 05:55 Resp 22 08/07/20 05:55 BP 140/51 L 08/07/20 05:55 Pulse Ox 93 08/07/20 05:55 COVID-19 Screening Have you, or household traveled for leisure in last 14 days?: No Had IN PERSON contact w/suspected or confirmed C-19 person: No
[2020-08-07 08:59] LABS: C-Reactive Protein 2.32 mg/dL (0.0-0.3)
--- NOTE | 2020-08-07 09:01 | PDOC.CMIN ---
- If Service Date Differs Date of service: 08/07/20 Time of Service: 09:01 Care Management Initial Assess REASON FOR HOSPITALIZATION:: Sepsis PAST MEDICAL HISTORY/PAST SURGICAL HISTORY:: Medical History (Updated 08/07/20 @ 06:27 by Sabino Hooper MD). Abdominal pain, chronic, epigastric (03/23/16). Advance directive on file. Annual physical exam (02/22/18). Aortic stenosis, severe. Bacteremia due to group B Streptococcus. Bleeding esophageal varices (03/10/16). Breast mass. CAP (community acquired pneumonia). Carpal tunnel syndrome. right; s/p release. Cellulitis. Cervical disc disorder with myelopathy (09/04/12). Chronic epigastric pain (03/23/16). DVT prophylaxis. Edema, unspecified. 06/28/16 B/L. Elevation of level of transaminase and lactic acid dehydrogenase (LDH). Epistaxis. Esophageal varices with hemorrhage. Fever. Fever, unknown origin. 04/14/16. Fluid overload. Foot pain. GI bleed. Gram-positive bacteremia. Hepatic encephalopathy (03/10/16). Hyperlipidemia (09/04/12). Incisional hernia (01/15/15). Increased body mass index. Mild epistaxis. 12/21/15. Nausea. Pancytopenia. Physical deconditioning. Pneumonia. Portal hypertension. Sepsis. Sepsis syndrome. Thyroid nodule. right[place] [place] 2.3cm [place]; neg. biopsy. Uninodular goiter. Tubular adenoma (04/12/13). Surgical History . Colonoscopy - IV Sedation (04/12/13). DR. Bhumika CLAYTON. Open Carpal Tunnel release. RIGHT. PROCEDURES. OTHER CERVICAL FUS ANT. [place]cectomy. [place] [facility] [place] NEGATIVE THYROID BX. S/P carpal tunnel release. right. S/P cervical spinal fusion. anterior; discectomy. S/P cervical spinal fusion. anterior;discectomy. S/P tonsillectomy. Status post biopsy of thyroid gland. 09/18/08 neg. Status post carpal tunnel release. Status post cervical spinal arthrodesis. Status post tonsillectomy. Tonsillectomy PREVIOUS FUNCTIONAL STATUS/SOCIAL/FAMILY SUPPORTS:: Mayra resides in a single family home in [place] with her and daughter, Divya. She has three additional adult children all who are supportive. Mayra is not currently employed, she was previously independent with ADLs and activities, though over the last few monthes she has needed some assistance. CURRENT FUNCTIONAL STATUS:: Mayra is isolated as a PUI and her Covid test is not back yet. CM will continue to follow. She remains afebrile and her vital signs are essentially stable. Her oxygen saturation is 96% on room air and although her blood pressures were running a bit high during the night they have normalized. ADVANCE DIRECTIVES:: Germain VIEYRA Has patient been provided with info about the portal/API?: Yes Did the patient sign up for the portal?: No CODE STATUS:: Full Code INSURANCE COVERAGE / FINANCIAL ISSUES:: Medicare. BC/JAYRO PRIMARY CARE PHYSICIAN:: Ashley Miller PATIENT/FAMILY EDUCATION NEEDS:: Discharge plan, limitations, follow up plan, Ask Me Three TRANSPORTATION:: via private vehicle with family PLAN:: Mayra will likely be discharged home with no new services. She will follow up with her PCP and discharge plan of care. CM will continue to support Mayra and her family and assess for discharge planning needs.
[2020-08-07 09:04] LABS: Lactate 1.5 mmol/L (0.6-1.4)
[2020-08-07 09:14] LABS: Ammonia 37 umol/L (11-32)
[2020-08-07] MEDS: Spironolactone 50 MG TAB PO (09:15)
[2020-08-07] MEDS: Ferrous Sulfate 325 MG TAB PO (09:16)
[2020-08-07] MEDS: Nadolol 40 MG TAB PO (09:16)
[2020-08-07] MEDS: amLODIPine 5 MG TAB PO (09:16)
[2020-08-07] MEDS: Ascorbic Acid 500 MG TAB PO (09:16)
[2020-08-07] MEDS: Furosemide 40 MG TAB PO (09:16)
[2020-08-07] MEDS: Sucralfate 1 GM TAB PO ×4 (09:16→21:49)
[2020-08-07] MEDS: Zinc Sulfate 220 MG TAB PO (09:16)
[2020-08-07] MEDS: Pregabalin 100 MG CAP PO ×3 (09:16→19:49)
[2020-08-07] MEDS: Rifaximin 550 MG TAB PO ×2 (09:16→19:49)
[2020-08-07] MEDS: Pantoprazole 40 MG TABCR PO (09:16)
[2020-08-07] MEDS: Lactulose 20 GM/30 ML CUP 10 GM PO ×3 (09:16→19:50)
[2020-08-07] MEDS: Lachydrin 12% LOTION 225 GM BTL TP ×2 (09:17→19:48)
[2020-08-07] MEDS: Normal Saline Flush 10 ML SYR IVP ×2 (09:17→20:12)
[2020-08-07] MEDS: Triamcinolone 0.1% CR 15 GM TUBE TP ×4 (09:17→19:49)
[2020-08-07] MEDS: Insulin Aspart 300 UNITS/3 ML PEN SC ×3 (09:17→16:49)
[2020-08-07] MEDS: Normal Saline 500 ML 30 ML IV (09:23)
[2020-08-07 09:48] LABS: Procalcitonin 1.5 ng/mL
[2020-08-07] MEDS: Acetaminophen 325 MG TAB 650 MG PO ×2 (11:44→15:06)
--- NOTE | 2020-08-07 16:54 | PHA.REVIEW ---
Pharmacy Admission Review - Admission Clinical Review (Last Reviewed 08/07/20 @ 06:21 by Sabino Hooper MD) Sepsis (Acute) Elephantiasis nostra verrucosa (Acute) Cellulitis (Acute) Diabetic foot infection (Acute) DVT prophylaxis (Acute) gabapentin Allergy (Intermediate, Unverified 07/20/20 13:37) Local reaction on skin lisinopril Adverse Reaction (Verified 07/20/20 13:37) Itching Height 5 ft 2 in Weight 104.326 kg - Renal Dosing Renal Dosing: BUN 12 mg/dL (7-18) 08/07/20 01:20 Creatinine 0.76 mg/dL (0.55-1.02) 08/07/20 01:20 Medications needing adjustments: Reviewed - Anticoagulation Anticoagulation: Hgb 12.7 g/dL (11.2-15.7) 08/07/20 01:20 Hct 37.9 % (36.0-46.0) 08/07/20 01:20 Plt Count 86 10^3/uL (130-400) L 08/07/20 01:20 Creatinine 0.76 mg/dL (0.55-1.02) 08/07/20 01:20 DVT Prohphylaxis: Reviewed Medications: Heparin (Heparin was cautiously started but ultimately dc'd due to low platelet count) - Opiate Usage Evaluate Pain Scale/Pains Meds: Reviewed Scheduled Bowel Reg ordered if on Opiates?: No - Relevant Labs Sodium 139 mmol/L (136-145) 08/07/20 01:20 Potassium 4.1 mmol/L (3.5-5.1) 08/07/20 01:20 Chloride 104 mmol/L (98-107) 08/07/20 01:20 C-Reactive Protein 2.32 mg/dL (0.0-0.3) H 08/07/20 01:20 Electrolytes, C-Reactive P, ESR: Reviewed - DM Control DM Control: Glucose 222 mg/dL (74-106) H 08/07/20 01:20 Finger Stick Blood Glucose 194 Finger Stick Blood Glucose 194 Finger Stick Blood Glucose 222 Finger Stick Blood Glucose 222 Finger Stick Blood Glucose 178 Finger Stick Blood Glucose 178 Insulin Dosing: Reviewed (aspart per SS ordered here, per a recent note from Dr. Baron DM is well controlled and pt is off all meds) - Heart Failure/ND EF%, VANESSA's, B-Blockers, Diuretics: Reviewed - BP Control BP Control: Blood Pressure 110/48 Blood Pressure 118/50 Blood Pressure 106/39 Blood Pressure 136/52 Blood Pressure 140/51 If elevated: Reviewed - Qtc Review If Elevated: Reviewed List meds needing interventions: QTc 466 - IV to PO Switch IV Medications: Reviewed - Home Meds Home Med List reviewed: Reviewed Relevent Home Meds Not ordered & why?: mupiricon ointment all ordered - Nadolol and Spironolactone haven't been filled by patient since they were last prescribed by Li Guerra in February for a 30 day supply- question if she's still taking at home - Current meds Current Medication Order Review: Reviewed
[2020-08-08] VITALS (10 sets, daily range): BP systolic 123–155; BP diastolic 54–71; PULSE 64–81; RESP 17–20; TEMP 36.1–37.5; O2SAT 92–96
[2020-08-08] MEDS: PIPERACILLIN/TAZO 3.375 GM in Normal Saline 50 ML IVPB ×4 (01:15→20:01)
[2020-08-08 07:30] LABS: Abs Immature Grans 0.03 10^3/uL (0.0-0.06); Absolute Basophil Count 0.08 10^3/uL (0.0-0.2); Absolute Eosinophil Count 0.45 10^3/uL (0.0-0.7); Absolute Lymphocyte Count 1.18 10^3/uL (1.2-3.4); Absolute Monocyte Count 0.65 10^3/uL (0.1-0.8); Eosinophils % 5.7; HCT 37.2 % (36.0-46.0); HGB 12.3 g/dL (11.2-15.7); Immature Grans % 0.4; MCH 31.2 pg (27.0-33.0); MCHC 33.1 % (32.0-36.0); MCV 94.4 fL (80-95); MPV 10.1 fL (8.0-11.0); Monocytes % 8.2; Neutrophils % 69.7; Nucleated RBC 0 %; RBC 3.94 10^6/uL (3.93-5.22); RDW 14.6 % (11.7-14.6); RDW-SD 50.5 fL; WBC 7.89 10^3/uL (4.4-10.8)
[2020-08-08] MEDS: Lactulose 20 GM/30 ML CUP 10 GM PO ×3 (07:36→20:00)
[2020-08-08] MEDS: Normal Saline Flush 10 ML SYR IVP ×2 (07:36→20:01)
[2020-08-08] MEDS: Furosemide 40 MG TAB PO (07:37)
[2020-08-08] MEDS: amLODIPine 5 MG TAB PO (07:37)
[2020-08-08] MEDS: Nadolol 40 MG TAB PO (07:37)
[2020-08-08] MEDS: Rifaximin 550 MG TAB PO ×2 (07:37→20:08)
[2020-08-08] MEDS: Ascorbic Acid 500 MG TAB PO (07:37)
[2020-08-08] MEDS: Pantoprazole 40 MG TABCR PO (07:37)
[2020-08-08] MEDS: Ferrous Sulfate 325 MG TAB PO (07:37)
[2020-08-08] MEDS: Zinc Sulfate 220 MG TAB PO (07:37)
[2020-08-08] MEDS: Spironolactone 50 MG TAB PO (07:37)
[2020-08-08] MEDS: Sucralfate 1 GM TAB PO ×4 (07:37→21:53)
[2020-08-08] MEDS: Pregabalin 100 MG CAP PO ×3 (07:37→20:08)
[2020-08-08] MEDS: Lachydrin 12% LOTION 225 GM BTL TP ×2 (07:37→20:08)
[2020-08-08 07:52] LABS: ALT 33 U/L (14-59); AST 50 U/L (15-37); Albumin 2.2 g/dL (3.4-5.0); Alkaline Phosphatase 167 U/L (46-116); Anion Gap 2.5 mmol/L (3-11); Bilirubin, Total 4.2 mg/dL (0.2-1.0); CO2 30.5 mmol/L (21.0-32.0); CREATININE 0.88 mg/dL (0.55-1.02); Calcium 8.6 mg/dL (8.5-10.1); Chloride 106 mmol/L (98-107); Glucose 159 mg/dL (74-106); Potassium 3.9 mmol/L (3.5-5.1); Sodium 139 mmol/L (136-145); Total Protein 6.1 g/dL (6.4-8.2)
[2020-08-08] MEDS: Triamcinolone 0.1% CR 15 GM TUBE TP ×4 (07:55→20:08)
[2020-08-08 07:58] LABS: Platelet Count 78 10^3/uL (130-400)
[2020-08-08 07:59] LABS: Diff Comment PLT Morph Reviewed; RBC Morphology Normal
[2020-08-08 08:05] LABS: Vancomycin, Trough 14.4 ug/mL (10.0-20.0)
[2020-08-08 08:09] LABS: BUN 19 mg/dL (7-18)
[2020-08-08 10:07] LABS: Lactate 2.1 mmol/L (0.6-1.4)
--- NOTE | 2020-08-08 10:41 | PDOC.CMPRO ---
- If Service Date Differs Date of service: 08/08/20 Time of Service: 10:41 Care Management Progress Note S/O: Mayra was sitting up in a chair when CM met with her. She appeared irritated at first with a beeping IV and no lunch served to her, but she quickly recovered and was laughing with CM and staff. Mayra requested that CM call her daughter Divya and update her, which was done. Mayra was asked about advanced directives. After a bit of a discussion about what they are and the purpose she requested a blank copy of the [place] forms which were provided to her. Her plan is to review them with her daughter and and then possibly bring to her PCP for signature. Clinically Mayra is doing well. She remains afebrile and her blood cultures are negative to date. A: Mayra is a 65 year old woman admitted on 08/06/20 with cellulitis and sepsis P:Mayra will likely be discharged home with no new services. She will follow up with her PCP and discharge plan of care. CM will continue to support Mayra and her family and assess for discharge planning needs.
[2020-08-08 11:00] LABS: COVID-19 RT-PCR UVMMC Result Negative (Negative)
[2020-08-08] MEDS: Insulin Aspart 300 UNITS/3 ML PEN SC ×2 (11:34→16:45)
--- NOTE | 2020-08-08 12:47 | W.PM.PROGNOT ---
Date of Service Date of service: 08/08/20 Time of Service: 12:47 Assessment and Plan Assessment and plan (1) Sepsis: Start date: 08/08/20 Start time: 12:50 Status: Ruled-out Assessment and plan: Fever defervesced, elevated lactate likely in setting of cirrhosis given BC to date are negative. Will trend procalcitonin and CRP, stop trending lactate Will d/c vanco and cont zosyn with possible transition to oral. Xray to r/o osteo Etiology appears to be LLE cellulitis. IVF dcd Consider consulting podiatry however in the past patient has not wanted to by seen by our delphi developer. Qualifiers: Sepsis type: sepsis due to unspecified organism Sepsis acute organ dysfunction status: without acute organ dysfunction Qualified Code(s): A41.9 - Sepsis, unspecified organism (2) Cellulitis: Start date: 08/08/20 Start time: 12:53 Status: Acute Assessment and plan: LLE Awaiting xray as above Qualifiers: Site of cellulitis: extremity Site of cellulitis of extremity: lower extremity Laterality: left Qualified Code(s): L03.116 - Cellulitis of left lower limb (3) Elephantiasis nostra verrucosa: Start date: 08/08/20 Start time: 12:55 Status: Acute Assessment and plan: Predisposing factor for recurrence of LE cellulitis. Wound care; uses topical lac hydrin and steroids. (4) Diabetes mellitus: Start date: 08/08/20 Start time: 12:56 Status: Chronic Assessment and plan: Patient is not on oral diabetic medication or insulin. Glucose 222. SS correction insulin dosage ordered. Diabetic diet. Qualifiers: Diabetes mellitus type: type 2 Diabetes mellitus intermediate insulin use: without intermediate use Diabetes mellitus complication status: without complication Qualified Code(s): E11.9 - Type 2 diabetes mellitus without complications (5) Cirrhosis: Start date: 08/08/20 Start time: 12:56 Status: Chronic Assessment and plan: Cont Rifaximin, sprionolactone, Nadolol. Qualifiers: Hepatic cirrhosis type: other cirrhosis Qualified Code(s): K74.69 - Other cirrhosis of liver (6) DVT prophylaxis: Start date: 08/08/20 Start time: 12:55 Status: Acute Assessment and plan: Cautiously initiated heparin in background of cirrhosis with previous bleeding varices and thrombocytopenia. Monitor platelets. above case discussed with Dr. Rich who is in agreement. Subjective Subjective Patient reports: no new complaints Interval history since last seen: Doing ok, sitting up in chair with feet elevated. No c/o pain at this time. No imaging to r/o osteo. LLE with erythema, warm to touch odorous. BC with NGTD. No drainage to culture wound will continue to monitor. Exam Const General: cooperative, no acute distress and lethargic Nutritional Appearance: obese Orientation: oriented x3 HENMT Head: normocephalic and atraumatic Neck Neck: full ROM Resp Effort & Inspection: normal respiratory effort Auscultation: clear to auscultation bilaterally Cardio Rate: tachycardic Rhythm: regular rhythm Heart Sounds: S1 normal, S2 normal and murmur systolic holo GI Inspection: obesity Palpation: soft and nontender Auscultation: normal bowel sounds Skin General skin exam: erythema (LLE; ankle to dorsum no drainage present at this time) and hypertrophy (BLE below the knee.) Neuro General: patient awake, patient oriented x3 and moves all extremities Speech: other (slowed speech. Verbalizes minimally.) Objective Last Vital Signs Temp 36.9 C 08/08/20 11:32 Pulse 64 08/08/20 11:32 Resp 18 08/08/20 11:32 BP 123/67 08/08/20 11:32 Pulse Ox 94 08/08/20 11:32 Laboratory Results - last 24 hr 08/07/20 08/08/20 08/08/20 01:20 07:15 07:15 WBC 7.89 RBC 3.94 Hgb 12.3 Hct 37.2 MCV 94.4 MCH 31.2 MCHC 33.1 RDW 14.6 Plt Count 78 L MPV 10.1 Immature Gran % 0.4 Neutrophils % 69.7 Lymphocytes % 15.0 Monocytes % 8.2 Eosinophils % 5.7 Basophils % 1.0 Nucleated RBC % 0 Absolute Neutrophils 5.50 Absolute Lymphocytes 1.18 L Absolute Monocytes 0.65 Absolute Eosinophils 0.45 Absolute Basophils 0.08 RBC Morphology Normal VBG Lactate Sodium 139 Potassium 3.9 Chloride 106 Carbon Dioxide 30.5 Anion Gap 2.5 L BUN 19 H D Creatinine 0.88 Estimated GFR/1.73 m2 >= 60.00 Glucose 159 H Calcium 8.6 Total Bilirubin 4.2 H AST 50 H ALT 33 Alkaline Phosphatase 167 H Total Protein 6.1 L Albumin 2.2 L Vancomycin Trough COVID-19 PCR Negative Nasopharyn COVID-19 PCR Not Applicable Ref Test Perform Site Uvc 08/08/20 08/08/20 07:15 09:55 WBC RBC Hgb Hct MCV MCH MCHC RDW Plt Count MPV Immature Gran % Neutrophils % Lymphocytes % Monocytes % Eosinophils % Basophils % Nucleated RBC % Absolute Neutrophils Absolute Lymphocytes Absolute Monocytes Absolute Eosinophils Absolute Basophils RBC Morphology VBG Lactate 2.1 H* Sodium Potassium Chloride Carbon Dioxide Anion Gap BUN Creatinine Estimated GFR/1.73 m2 Glucose Calcium Total Bilirubin AST ALT Alkaline Phosphatase Total Protein Albumin Vancomycin Trough 14.4 COVID-19 PCR Nasopharyn COVID-19 PCR Ref Test Perform Site
--- NOTE | 2020-08-08 14:20 | DI.RAD_ITS ---
EXAM: XR FOOT LT COMPLETE CLINICAL HISTORY: r/o osteo. TECHNIQUE: 2D digital imaging was performed. COMPARISON: CR,XR XR FOOT LT COMPLETE from 04/13/2020 FINDINGS: The bones are again noted to be osteopenic. There is diffuse soft tissue swelling particularly over the dorsum of the foot. No fracture or dislocation is seen. There is a stable defect in the 1st met atarsal head. No gross bony erosion is seen. Heel spurs are not again noted. A lucency is again no luz maria in the calcaneus with central density which could represent a lipoma versus cyst and bone island. IMPRESSION: Osteopenia. No evidence of fracture. No gross evidence of bony erosion to suggest osteomyelitis. DATA REPOSITORY: RADIATION DOSE DELIVERED:
--- NOTE | 2020-08-08 14:38 | DI.VRAD_ITS ---
PROCEDURE INFORMATION: Exam: XR Left Foot Complete Exam date and time: 08/08/2020 2:19 PM Age: 65 years old Clinical indication: Other: R/O osteo TECHNIQUE: Imaging protocol: XR Left foot. Views: 3 or more views. COMPARISON: CR XR FOOT LT COMPLETE 04/13/2020 9:30 PM FINDINGS: Bones/joints: Bone island again noted in the calcaneus with possible adjacent cyst, unchanged from previous exam. Inferior calcaneal spur noted. No findings suggest osteomyelitis or septic joint. Subchondral cyst at the 1st metatarsal head level is unchanged from previous study. Soft tissues: There is diffuse soft tissue swelling, increased from previous exam. IMPRESSION: No plain film evidence to suggest osteomyelitis. Soft tissue swelling without additional changes from previous exam. Dictated and Authenticated by: Geetha Enciso MD. Ordering:OCTAVIO Slater MD
[2020-08-09] MEDS: PIPERACILLIN/TAZO 3.375 GM in Normal Saline 50 ML IVPB ×2 (02:19→08:09)
[2020-08-09] MEDS: Normal Saline Flush 10 ML SYR IVP ×2 (02:21→21:24)
[2020-08-09 03:37] VITALS: BP 125/65; PULSE 73; RESP 17; TEMP 36.8; O2SAT 95
[2020-08-09 06:48] LABS: Abs Immature Grans 0.05 10^3/uL (0.0-0.06); Absolute Basophil Count 0.07 10^3/uL (0.0-0.2); Absolute Eosinophil Count 0.46 10^3/uL (0.0-0.7); Absolute Lymphocyte Count 1.06 10^3/uL (1.2-3.4); Absolute Neutrophil Count 4.15 10^3/uL (1.2-6.7); Basophils % 1.1; Eosinophils % 7.2; HCT 33.1 % (36.0-46.0); HGB 11.3 g/dL (11.2-15.7); Immature Grans % 0.8; Lymphocytes % 16.6; MCH 31.9 pg (27.0-33.0); MCHC 34.1 % (32.0-36.0); MCV 93.5 fL (80-95); MPV 10.3 fL (8.0-11.0); Monocytes % 9.4; Neutrophils % 64.9; Nucleated RBC 0 %; RBC 3.54 10^6/uL (3.93-5.22); RDW 14.5 % (11.7-14.6); RDW-SD 49.9 fL; WBC 6.39 10^3/uL (4.4-10.8)
[2020-08-09 06:50] LABS: Platelet Count 88 10^3/uL (130-400)
[2020-08-09 07:03] LABS: Anion Gap 5.3 mmol/L (3-11); BUN 17 mg/dL (7-18); C-Reactive Protein 7.58 mg/dL (0.0-0.3); CO2 29.7 mmol/L (21.0-32.0); CREATININE 0.86 mg/dL (0.55-1.02); Calcium 8.4 mg/dL (8.5-10.1); Chloride 105 mmol/L (98-107); Glucose 139 mg/dL (74-106); Sodium 140 mmol/L (136-145)
[2020-08-09 07:55] VITALS: O2SAT 94
[2020-08-09] MEDS: Triamcinolone 0.1% CR 15 GM TUBE TP ×4 (07:56→21:31)
[2020-08-09] MEDS: Rifaximin 550 MG TAB PO ×2 (07:57→21:22)
[2020-08-09] MEDS: Lactulose 20 GM/30 ML CUP 10 GM PO ×3 (07:57→21:22)
[2020-08-09] MEDS: Ferrous Sulfate 325 MG TAB PO (07:57)
[2020-08-09] MEDS: Furosemide 40 MG TAB PO (07:57)
[2020-08-09] MEDS: Spironolactone 50 MG TAB PO (07:57)
[2020-08-09] MEDS: Pantoprazole 40 MG TABCR PO (07:58)
[2020-08-09] MEDS: amLODIPine 5 MG TAB PO (07:58)
[2020-08-09] MEDS: Nadolol 40 MG TAB PO (07:58)
[2020-08-09] MEDS: Ascorbic Acid 500 MG TAB PO (07:58)
[2020-08-09] MEDS: Sucralfate 1 GM TAB PO ×4 (07:58→21:22)
[2020-08-09] MEDS: Zinc Sulfate 220 MG TAB PO (07:58)
[2020-08-09] MEDS: Pregabalin 100 MG CAP PO ×3 (07:59→21:22)
[2020-08-09 08:00] VITALS: BP 139/55; PULSE 71; RESP 19; TEMP 37.2; O2SAT 91
[2020-08-09] MEDS: diphenhydrAMINE 25 MG CAP PO (08:06)
--- NOTE | 2020-08-09 10:02 | W.PM.PROGNOT ---
Date of Service Date of service: 08/09/20 Time of Service: 10:02 Assessment and Plan Assessment and plan (1) Sepsis: Start date: 08/09/20 Start time: 10:07 Status: Ruled-out Assessment and plan: Fever defervesced, elevated lactate likely in setting of cirrhosis given BC to date are negative after 48 hours. Will trend procalcitonin and CRP, stop trending lactate transition to oral in setting of negative blood cultures. Per up to date patient was placed on augmentin with bactrim BID. Will monitor overnight, Xray negative for osteo Etiology appears to be LLE cellulitis. She does not want to see electromechanical equipment tester in house she wants to f/u with her own in [place]. Qualifiers: Sepsis type: sepsis due to unspecified organism Sepsis acute organ dysfunction status: without acute organ dysfunction Qualified Code(s): A41.9 - Sepsis, unspecified organism (2) Cellulitis: Start date: 08/09/20 Start time: 10:13 Status: Acute Assessment and plan: LLE improving as above Qualifiers: Site of cellulitis: extremity Site of cellulitis of extremity: lower extremity Laterality: left Qualified Code(s): L03.116 - Cellulitis of left lower limb (3) Elephantiasis nostra verrucosa: Start date: 08/09/20 Start time: 10:13 Status: Acute Assessment and plan: Predisposing factor for recurrence of LE cellulitis. Wound care; uses topical lac hydrin and steroids. (4) Diabetes mellitus: Start date: 08/09/20 Start time: 10:13 Status: Chronic Assessment and plan: Patient is not on oral diabetic medication or insulin. Glucose 139. SS correction insulin dosage ordered. Diabetic diet. Qualifiers: Diabetes mellitus type: type 2 Diabetes mellitus senior care insulin use: without senior care use Diabetes mellitus complication status: without complication Qualified Code(s): E11.9 - Type 2 diabetes mellitus without complications (5) Cirrhosis: Start date: 08/09/20 Start time: 10:14 Status: Chronic Assessment and plan: Cont Rifaximin, sprionolactone, Nadolol. Qualifiers: Hepatic cirrhosis type: other cirrhosis Qualified Code(s): K74.69 - Other cirrhosis of liver (6) DVT prophylaxis: Start date: 08/09/20 Start time: 10:14 Status: Acute Assessment and plan: Cautiously initiated heparin in background of cirrhosis with previous bleeding varices and thrombocytopenia. Monitor platelets. above case discussed with Dr. Rich who is in agreement. Subjective Subjective Patient reports: feels better Interval history since last seen: Cellulitis improving localized to dorsal aspect of foot and toes. Blood cultures no growth after 48 hours. Imaging without osteo, transition to oral and possible discharge in am. Exam Const General: cooperative, no acute distress and lethargic Nutritional Appearance: obese Orientation: oriented x3 HENMT Head: normocephalic and atraumatic Neck Neck: full ROM Resp Effort & Inspection: normal respiratory effort Auscultation: clear to auscultation bilaterally Cardio Rate: tachycardic Rhythm: regular rhythm Heart Sounds: S1 normal, S2 normal and murmur systolic holo GI Inspection: obesity Palpation: soft and nontender Auscultation: normal bowel sounds Skin General skin exam: erythema (LLE; loalized to dorsum no drainage present at this time) and hypertrophy (BLE below the knee.) Neuro General: patient awake, patient oriented x3 and moves all extremities Speech: other (slowed speech. Verbalizes minimally.) Objective Last Vital Signs Temp 37.2 C 08/09/20 08:00 Pulse 71 08/09/20 08:00 Resp 19 08/09/20 08:00 BP 139/55 L 08/09/20 08:00 Pulse Ox 91 L 08/09/20 08:00 Laboratory Results - last 24 hr 08/07/20 08/08/20 08/09/20 01:20 09:55 06:36 WBC RBC Hgb Hct MCV MCH MCHC RDW Plt Count MPV Immature Gran % Neutrophils % Lymphocytes % Monocytes % Eosinophils % Basophils % Nucleated RBC % Absolute Neutrophils Absolute Lymphocytes Absolute Monocytes Absolute Eosinophils Absolute Basophils VBG Lactate 2.1 H* Sodium 140 Potassium 4.0 Chloride 105 Carbon Dioxide 29.7 Anion Gap 5.3 BUN 17 Creatinine 0.86 Estimated GFR/1.73 m2 >= 60.00 Glucose 139 H Calcium 8.4 L C-Reactive Protein 7.58 H COVID-19 PCR Negative Nasopharyn COVID-19 PCR Not Applicable Ref Test Perform Site [facility] 08/09/20 06:36 WBC 6.39 RBC 3.54 L Hgb 11.3 Hct 33.1 L MCV 93.5 MCH 31.9 MCHC 34.1 RDW 14.5 Plt Count 88 L MPV 10.3 Immature Gran % 0.8 Neutrophils % 64.9 Lymphocytes % 16.6 Monocytes % 9.4 Eosinophils % 7.2 Basophils % 1.1 Nucleated RBC % 0 Absolute Neutrophils 4.15 Absolute Lymphocytes 1.06 L Absolute Monocytes 0.60 Absolute Eosinophils 0.46 Absolute Basophils 0.07 VBG Lactate Sodium Potassium Chloride Carbon Dioxide Anion Gap BUN Creatinine Estimated GFR/1.73 m2 Glucose Calcium C-Reactive Protein COVID-19 PCR Nasopharyn COVID-19 PCR Ref Test Perform Site
--- NOTE | 2020-08-09 10:07 | PDOC.CMPRO ---
- If Service Date Differs Date of service: 08/09/20 Time of Service: 10:07 Care Management Progress Note S/O: Mayra was sitting up in a chair when CM met with her. She stated that she was tired and did not sleep well last night. She said that the staff kept waking her up to do vital signs or check her IV or give her meds and she couldn't get any rest. She also shared that her right leg was extremely itchy. This morning she was able to get benedryl and that helped some, but the itchiness was still present at 11:30 am, per Mayra. Her cellulitis is noticeably better, she is afebrile, blood cultures are negative and she will be changed to oral antibiotics today. A: Mayra is a 65 year old woman admitted on 08/06/20 with cellulitis and sepsis P:Mayra will likely be discharged home with no new services. She will follow up with her PCP and discharge plan of care. CM will continue to support Mayra and her family and assess for discharge planning needs.
[2020-08-09] MEDS: Amoxicillin 875/Clav. 125 TAB PO ×2 (10:25→21:22)
[2020-08-09 11:00] LABS: Procalcitonin 0.7 ng/mL
[2020-08-09 11:20] VITALS: BP 125/63; PULSE 58; RESP 18; TEMP 37.1; O2SAT 94
[2020-08-09] MEDS: Insulin Aspart 300 UNITS/3 ML PEN SC ×2 (12:20→16:52)
[2020-08-09 15:36] VITALS: BP 145/78; PULSE 69; RESP 19; TEMP 38; O2SAT 90
[2020-08-09 21:12] VITALS: BP 144/64; PULSE 72; RESP 18; TEMP 35.3; O2SAT 92
[2020-08-09] MEDS: Sulfameth/Trimeth DS TAB 1 TAB PO (21:22)
[2020-08-10 00:37] VITALS: BP 128/67; PULSE 66; RESP 16; TEMP 36.1; O2SAT 92
[2020-08-10 03:35] VITALS: BP 156/73; PULSE 74; RESP 18; TEMP 37.1; O2SAT 93
[2020-08-10] MEDS: diphenhydrAMINE 25 MG CAP PO (03:44)
[2020-08-10 07:11] LABS: Abs Immature Grans 0.02 10^3/uL (0.0-0.06); Absolute Basophil Count 0.12 10^3/uL (0.0-0.2); Absolute Eosinophil Count 0.75 10^3/uL (0.0-0.7); Absolute Monocyte Count 0.76 10^3/uL (0.1-0.8); Absolute Neutrophil Count 4.32 10^3/uL (1.2-6.7); Basophils % 1.7; Eosinophils % 10.3; HCT 34.5 % (36.0-46.0); HGB 11.6 g/dL (11.2-15.7); Immature Grans % 0.3; Lymphocytes % 17.9; MCH 31.6 pg (27.0-33.0); MCHC 33.6 % (32.0-36.0); Monocytes % 10.5; Neutrophils % 59.3; Nucleated RBC 0 %; Platelet Count 102 10^3/uL (130-400); RBC 3.67 10^6/uL (3.93-5.22); RDW 14.6 % (11.7-14.6); RDW-SD 49.9 fL; WBC 7.27 10^3/uL (4.4-10.8)
[2020-08-10 07:20] LABS: Anion Gap 5.1 mmol/L (3-11); BUN 16 mg/dL (7-18); CO2 30.9 mmol/L (21.0-32.0); CREATININE 0.86 mg/dL (0.55-1.02); Calcium 8.7 mg/dL (8.5-10.1); Chloride 104 mmol/L (98-107); Glucose 106 mg/dL (74-106); Potassium 4.1 mmol/L (3.5-5.1); Sodium 140 mmol/L (136-145)
[2020-08-10 07:21] VITALS: BP 157/78; PULSE 69; RESP 18; TEMP 36.9; O2SAT 91
[2020-08-10 07:30] VITALS: O2SAT 92
[2020-08-10] MEDS: Lactulose 20 GM/30 ML CUP 10 GM PO (07:33)
[2020-08-10] MEDS: Ascorbic Acid 500 MG TAB PO (07:34)
[2020-08-10] MEDS: Triamcinolone 0.1% CR 15 GM TUBE TP ×2 (07:34→11:47)
[2020-08-10] MEDS: Spironolactone 50 MG TAB PO (07:34)
[2020-08-10] MEDS: Nadolol 40 MG TAB PO (07:34)
[2020-08-10] MEDS: Rifaximin 550 MG TAB PO (07:34)
[2020-08-10] MEDS: Amoxicillin 875/Clav. 125 TAB PO (07:34)
[2020-08-10] MEDS: amLODIPine 5 MG TAB PO (07:34)
[2020-08-10] MEDS: Sucralfate 1 GM TAB PO ×2 (07:35→11:35)
[2020-08-10] MEDS: Zinc Sulfate 220 MG TAB PO (07:35)
[2020-08-10] MEDS: Pantoprazole 40 MG TABCR PO (07:35)
[2020-08-10] MEDS: Furosemide 40 MG TAB PO (07:35)
[2020-08-10] MEDS: Pregabalin 100 MG CAP PO (07:35)
[2020-08-10] MEDS: Ferrous Sulfate 325 MG TAB PO (07:50)
--- NOTE | 2020-08-10 09:15 | W.PM.DS.N ---
Date of service: 08/10/20 Time of Service: 09:15 DS: Diagnosis Discharge Diagnosis (1) Sepsis: Start date: 08/10/20 Start time: 09:15 Status: Ruled-out Asessment and Plan: R/o lactate likely elevated from cirrhosis. Fever defervesced Will treat with 2 week course antibiotics. Blood cultures negative Cellulitis improving Follow up with in [facility] this week. BMP and CRP trend as outpatient, in setting of spirlactone with bactrim this does increase risk for hyperkalemia therefore monitor potassium level every couple of days Follow up with PCP in 1 week imaging without evidence of osteo (2) Cellulitis: Start date: 08/10/20 Start time: 09:19 Status: Acute Asessment and Plan: as above (3) Elephantiasis nostra verrucosa: Start date: 08/10/20 Start time: 09:19 Status: Acute Asessment and Plan: Predisposing factor for recurrence. Wound care (4) Diabetes mellitus: Start date: 08/10/20 Start time: 09:19 Status: Chronic Asessment and Plan: continue carb controlled (5) Cirrhosis: Start date: 08/10/20 Start time: 09:21 Status: Chronic Asessment and Plan: Cont Rifaximin, sprionolactone, Nadolol. Discharge Plan Disposition Patient Disposition: HOME Condition: Improving Discharge Details Reason For Visit: CELLULITIS;SEPSIS Admit Date/Time: 08/07/20 02:17 Admit Provider: Sabino Hooper Attending Provider: Sabino Hooper Primary Care Provider: Malu Baron Hospital Course Hospital Course: 65 y.o female with PMH DM, Cirrhosis, elephantiasis, Portal HTN, Aortic stenosis with Murmur, HTN, admitted to [facility] after presenting with fever, chills, tachycardia, she was found to have LLE cellulitis and admitted to m/s for further management. Over course of hospitalization she was initiated on zosyn and vanco. Blood cultures grew nothing to date. Her antibiotics were narrowed to augmentin and bactrim oral per up to date. Her fever deferervesced, she continued to have an elevated lactate, but I contribute this more to cirrhosis then sepsis as it was even. Her CRP was 7.58 she will need repeat labs in 3 days, with follow up to podiatry a Dr. Duran and follow up with her PCP in 1 week. Procalcitonin was initially 1.5 on 08/07 with repeat on 08/09 at 0.7. Imaging without evidence of osteo for this reason she is being discharged home. She denies CP, SOB, N/V/D Home Meds and New Rx's Prescriptions: New sulfamethoxazole-trimethoprim 800-160 mg Tablet 1 tab PO Q12H Qty: 28 RF: 0 ascorbic acid (vitamin C) [Vitamin C] 500 mg Tablet 500 mg PO DAILY Qty: 30 RF: 0 hydroxyzine HCl 25 mg Tablet 25 mg PO QID PRN PRNQty: 20 RF: 0 amoxicillin-pot clavulanate 875-125 mg Tablet 1 tab PO BID Qty: 28 RF: 0 Bio-K plus 50 billion cell Capsule,Delayed Release(Dr/Ec) 1 cap PO DAILY Qty: 30 RF: 0 Continued Xifaxan 550 mg tablet 550 mg PO BID Qty: 180 RF: 2 sucralfate 1 gram tablet 1 gm PO AC & HS Qty: 360 RF: 12 amlodipine 5 mg tablet 5 mg PO DAILY Qty: 90 RF: 5 oxycodone 5 mg tablet 5 mg PO BID MDD 3 PRN (Reason: pain) Qty: 15 RF: 0 ferrous sulfate [iron] 325 mg (65 mg iron) tablet 325 mg PO DAILY RF: 0 furosemide 20 mg tablet 40 mg PO DAILY Qty: 180 RF: 12 pantoprazole 40 mg tablet,delayed release (DR/EC) 40 mg PO DAILY Qty: 180 RF: 3 ammonium lactate 12 % lotion 1 applic topical BID RF: 0 zinc sulfate 220 MG capsule 220 mg PO DAILY Qty: 90 RF: 3 pregabalin 100 mg capsule 100 mg PO TID Qty: 270 RF: 4 triamcinolone acetonide 0.1 % cream 1 applic TP QID Qty: 80 RF: 1 ondansetron HCl [Zofran] 4 mg tablet 4 mg PO DAILY PRN (Reason: nausea and vomiting) Qty: 90 RF: 3 fluocinonide 0.05 % ointment 1 applic TOPICAL DAILY RF: 0 mupirocin 2 % ointment 0 applic TOPICAL DAILY RF: 0 lactulose 20 gram/30 mL Solution 10 g PO TID RF: 0 nadolol 40 mg tablet 40 mg PO DAILY Qty: 30 RF: 0 spironolactone 50 mg tablet 50 mg PO DAILY Qty: 30 RF: 0 No Action (DME) OneTouch Ultra Test strip 1 ea Miscellaneous QID Qty: 300 RF: 5 (DME) pen needle, diabetic [BD Ultra-Fine Orig Pen Needle] 1 EACH needle 1 ea Miscellaneous BID Qty: 180 RF: 3 Discharge Instructions Instructions: Cirrhosis (DC), Cellulitis (DC) Additional Instructions: Follow up with Dr. Duran this week Follow up with PCP this week Recheck labs every 3 days. Continue bio k for one month Eat yogurt daily up to one month after finishing antibiotics Finish all antibiotics as prescribed. Take atarax as needed for itching and over the counter benadryl Stand Alone Forms: Nursing Discharge Form Activity:: Activity as Tolerated Equipment/Supplies:: No Equipment Needed Diet:: Carb Counting Discharge Orders Discharge Orders: Discharge Order (Routine); Ordered 08/10/20 Ordered By: Nohemy Arellano DS: Summary Status at Discharge Functional status at discharge: independent ambulation Overall status at discharge: patient is progressing back to baseline Mental Status: mental status grossly normal Speech and Movement: speech and movement normal Mood: congruent mood Affect: normal affect Exam Const General: cooperative, no acute distress and lethargic Nutritional Appearance: obese Orientation: oriented x3 [facility] Head: normocephalic and atraumatic Neck Neck: full ROM Resp Effort & Inspection: normal respiratory effort Auscultation: clear to auscultation bilaterally Cardio Rate: tachycardic Rhythm: regular rhythm Heart Sounds: S1 normal, S2 normal and murmur systolic holo GI Inspection: obesity Palpation: soft and nontender Auscultation: normal bowel sounds Skin General skin exam: erythema (LLE; loalized to dorsum no drainage present at this time) and hypertrophy (BLE below the knee.) Neuro General: patient awake, patient oriented x3 and moves all extremities Speech: other (slowed speech. Verbalizes minimally.) Psych Mental Status: mental status grossly normal Speech and Movement: speech and movement normal Mood: congruent mood Affect: normal affect DS: Data Vitals/I&O Vitals and I&O: Vital Signs Temperature 36.9 C 08/10/20 07:21 Temperature Source Temporal Artery Scan 08/10/20 07:21 Pulse 69 08/10/20 07:21 Pulse Rhythm Regular 08/10/20 07:30 Pulse 106 H 08/07/20 02:50 Respiratory Rate 18 08/10/20 07:21 Respiratory Effort Non-Labored 08/10/20 07:30 Respiratory Depth Normal 08/10/20 07:30 Respiratory Pattern Normal 08/10/20 07:30 Blood Pressure 157/78 H 08/10/20 07:21 Blood Pressure Mean 86 08/07/20 02:46 Blood Pressure Position Sitting 08/07/20 00:54 Pulse Oximetry 92 08/10/20 07:30 Oxygen Delivery Method Room Air 08/10/20 07:30 Oxygen Flow Rate 0 08/10/20 07:30 Pain Level 0 08/10/20 07:21 Comment 08/07/20 11:39 Intake & Output 08/09/20 08/09/20 08/10/20 11:59 23:59 11:59 Intake Total 290 / 1360 1070 / 1360 Output Total 1400 / 2550 1150 / 2550 300 / 300 Balance -1110 / -1190 -80 / -1190 -300 / -300 Intake: IV 50 / 60 10 / 60 Oral 240 / 1300 1060 / 1300 Output: Urine 1400 / 2550 1150 / 2550 300 / 300 Other: Urine Color Straw Yellow Yellow Urine Appearance Clear Clear Clear Urine Odor None Normal Normal Comment Small amount of bright red menstrual spotting Stool Size Large Small Large Stool Characteristics Soft Soft Soft Brown Brown Voiding Methods Bedside Commode Bedside Commode Bedside Commode Data Completed and Pending Completed studies during hospitalization [Text1]: Exam(s) a RAD:XR portable chest AP EXAM: XR PORTABLE CHEST AP CLINICAL HISTORY: fever TECHNIQUE: 2D digital imaging was performed. COMPARISON: No exams were available for comparison FINDINGS: MEDIASTINUM: Normal. HEART: Given the AP projection, the heart size is within normal limits. PULMONARY VASCULATURE: Stable appearance of the pulmonary vasculature which is prominent and may be chronic. LUNGS: Prominence of the interstitium which appears unchanged and is likely chronic. No focal consolidating infiltrates. PLEURAL SPACE: No pleural effusion or pneumothorax. BONE:Within normal limits for the patient's age. OTHER FINDINGS:Normal. IMPRESSION: No Exam(s) a RAD:XR foot LT complete EXAM: XR FOOT LT COMPLETE CLINICAL HISTORY: r/o osteo. TECHNIQUE: 2D digital imaging was performed. COMPARISON: CR,XR XR FOOT LT COMPLETE from 04/13/2020 FINDINGS: The bones are again noted to be osteopenic. There is diffuse soft tissue swelling particularly over the dorsum of the foot. No fracture or dislocation is seen. There is a stable defect in the 1st metatarsal head. No gross bony erosion is seen. Heel spurs are not again noted. A lucency is again noted in the calcaneus with central density which could represent a lipoma versus cyst and bone island. IMPRESSION: Osteopenia. No evidence of fracture. No gross evidence of bony erosion to suggest osteomyelitis. Labs on day of discharge: Labs from last 24 hours 08/10/20 08/10/20 08/09/20 06:25 06:25 06:35 WBC 7.27 RBC 3.67 L Hgb 11.6 Hct 34.5 L MCV 94.0 MCH 31.6 MCHC 33.6 RDW 14.6 Plt Count 102 L MPV 10.0 Immature Gran % 0.3 Neutrophils % 59.3 Lymphocytes % 17.9 Monocytes % 10.5 Eosinophils % 10.3 Basophils % 1.7 Nucleated RBC % 0 Absolute Neutrophils 4.32 Absolute Lymphocytes 1.30 Absolute Monocytes 0.76 Absolute Eosinophils 0.75 H Absolute Basophils 0.12 Sodium 140 Potassium 4.1 Chloride 104 Carbon Dioxide 30.9 Anion Gap 5.1 BUN 16 Creatinine 0.86 Estimated GFR/1.73 m2 >= 60.00 Glucose 106 Calcium 8.7 Procalcitonin 0.7 Preliminary micro results at discharge 08/07/20 01:45 Blood Culture - Preliminary Blood NO GROWTH 72 HOURS 08/07/20 01:20 Blood Culture - Preliminary Blood NO GROWTH 72 HOURS [facility] Medical History (Updated 08/08/20 @ 12:53 by Nohemy Arellano NP) Abdominal pain, chronic, epigastric (03/23/16) Advance directive on file Annual physical exam (02/22/18) Aortic stenosis, severe Bacteremia due to group B Streptococcus Bleeding esophageal varices (03/10/16) Breast mass CAP (community acquired pneumonia) Carpal tunnel syndrome right; s/p release Cellulitis Cervical disc disorder with myelopathy (09/04/12) Chronic epigastric pain (03/23/16) DVT prophylaxis Edema, unspecified 06/28/16 B/L Elevation of level of transaminase and lactic acid dehydrogenase (LDH) Epistaxis Esophageal varices with hemorrhage Fever Fever, unknown origin 04/14/16 Fluid overload Foot pain GI bleed Gram-positive bacteremia Hepatic encephalopathy (03/10/16) Hyperlipidemia (09/04/12) Incisional hernia (01/15/15) Increased body mass index Mild epistaxis 12/21/15 Nausea Pancytopenia Physical deconditioning Pneumonia Portal hypertension Sepsis Sepsis syndrome [place] right[place] [place] 2.3[place]; neg. biopsy Uninodular goiter Tubular adenoma (04/12/13) Surgical History Colonoscopy - IV Sedation (04/12/13) DR. Bhumika CLAYTON Open Carpal Tunnel release RIGHT PROCEDURES OTHER CERVICAL FUS ANT [place] [facility] [place] NEGATIVE THYROID BX S/P carpal tunnel release right S/P cervical spinal fusion anterior; discectomy S/P cervical spinal fusion anterior;discectomy S/P tonsillectomy Status post biopsy of thyroid gland 09/18/08 neg Status post carpal tunnel release Status post cervical spinal arthrodesis Status post tonsillectomy Tonsillectomy Family History Mother Pancreatic cancer Father Diabetes Essential hypertension Stroke Sister Heart disease Brother Bone cancer Liver cancer Maternal Grandfather No problems noted. Paternal Grandfather No problems noted. Maternal Grandmother , OLD AGE at age 89. No problems noted. Paternal Grandmother Breast cancer Sister Diabetes Colon cancer Rectal cancer Sister Diabetes Son No problems noted. Son No problems noted. Daughter No problems noted. Daughter Alcohol abuse Asthma Social History Smoking/Tobacco Use Status: Former Tobacco Use Tobacco: How many years used: 2 Second Hand Exposure: Yes Smoking risk assessment performed?: Yes Alcohol Intake: never Drug use: Never Counseling given: No Household members: spouse and children Housing: house Communication Needs: None Do you need help understanding health information?: Rarely Pets and animals: Yes Pets and animals: dog(s) Sexually active: No Do you think of yourself as: straight/heterosexual Current gender identity: female What is your relationship status?: How often do you talk on the phone with friends or family?: three or more times per week How often do you get together with friends or relatives?: once per week How often do you attend roman catholic or roman catholic services?: 1-3 times per year Do you belong to any clubs or organized social groups?: no Panel score (0-1 are the most socially isolated patients): 2 What type of physical activity do you participate in: decline to answer Duration: < 15 minutes/day Frequency: 1-2 times per week Lyubov/Latter-Day: Anabaptism Special lyubov needs: No Seatbelt use: always Helmet use: No Drive intox or ride w/intox driver's license examiner: No Do you feel safe at home: Yes Do you feel safe in your relationship?: Yes
[2020-08-10] MEDS: hydrOXYzine HCL 25 MG TAB PO (10:20)
[2020-08-10] MEDS: Sulfameth/Trimeth DS TAB 1 TAB PO (10:20)
--- NOTE | 2020-08-10 10:41 | W.INDIABCONS ---
Date of service: 08/10/20 Time of Service: 10:41 Diabetes Inpatient Consult DESCRIPTION/ASSESSMENT: 65 year old female admitted with cellulitis and sepsis. BMI 42 indicates morbid obesity. PMH: DM 2 with hx of foot ulcer. Medical chart indicates 17 lbs weight loss in last 6 months (-7%) with improvement in A1C now 5.6% (07/20/20). Home meds include aspart insulin TID. Met with Mayra today to offer diabetes education. She declines education and says she lost weight by eating smaller portions and says she does not want to hear about diabetes anymore. I reinforced that her weight loss had improved her blood sugars and now in great range for optimal health. Does not appear at nutritional risk at this time. INTERVENTION: Diabetic Diet PLAN: Will continue to follow labs, weight and po intake Time Spent in Nutritional Counseling and Treatment: 10 min
--- NOTE | 2020-08-10 12:32 | PDOC.CMDIS ---
- If Service Date Differs Date of service: 08/10/20 Time of Service: 12:32 LACE Index Scoring Tool - Questions: Length of Stay (in days): 3 Acuity (Admit via E.D.?): Yes Comorbidities: Liver or Renal Disease E.D. Visits: 3 - Answers: Total Score: 14 Risk of Readmission: High Risk Care Management Discharge Reason for Hospitalization: Sepsis Discharge Plan: Mayra will be discharged home with no new services. She will follow up with her PCP and discharge plan of care. Mayra will transport via private vehicle with her son. Patient/Family Education Needs: Discharge and follow up plans, limitations, Ask Me Three
== END 2020-08-10 12:36 | disposition home or self-care (01) | DRG 872 ==
LOC: ER 02:35 → MS 06:44
PROVIDERS: Nurse Practitioner Family; Admitting Provider Family Medicine; Emergency Provider Emergency Medicine; PCP Family Medicine; Visit Provider Family Medicine
DX: A41.9 Sepsis, unspecified organism (principal); L03.116 Cellulitis of left lower limb; Z68.41 Body mass index [BMI] 40.0-44.9, adult; M50.00 Cervical disc disorder with myelopathy, unspecified cervical region; K76.6 Portal hypertension; I85.10 Secondary esophageal varices without bleeding; E11.9 Type 2 diabetes mellitus without complications; E66.9 Obesity, unspecified; K74.69 Other cirrhosis of liver; I35.0 Nonrheumatic aortic (valve) stenosis; I89.0 Lymphedema, not elsewhere classified; E78.5 Hyperlipidemia, unspecified; E04.1 Nontoxic single thyroid nodule; Z87.891 Personal history of nicotine dependence; I10 Essential (primary) hypertension
CPT/HCPCS: 36415; 51701; 80048; 80053; 84145; 87040; 93005; 96361; 96365; 96368; 99222; 99233; 99239; 99291; U0003; 71045; 73630; 80202; 81003; 81015; 82140; 83605; 85025; 86140; 93010; J2543

== ENCOUNTER 2020-08-11 08:13 | Inpatient (IN) | payer MEDICARE, BC, SELFPAY ==
[2020-08-11] VITALS (48 sets, daily range): BP systolic 123–156; BP diastolic 27–72; PULSE 57–91; RESP 15–28; TEMP 36.7–38.2; O2SAT 80–100
--- NOTE | 2020-08-11 | DI.US_ITS ---
APPROVED REPORT EXAM: Comprehensive 2D, Doppler, and color-flow Echocardiogram Patient Location: In-Patient Room/Bed: [facility] Interventionist: Pricila Hahn RDCS (AE) Indications: CHF, SOB, Aortic Stenosis Other Information Technically limited study due to inability to position patient, body habitus. Conclusion Mild concentric left ventricular hypertrophy. Estimated ejection fraction is 55 to 60%. There are n o segmental wall motion abnormalities The right ventricle appears normal in size and systolic function The left atrium is borderline dilated. Right atrium is normal in size Aortic valve is calcified and probably trileaflet. There is severe aortic stenosis. The peak gradie nt is 55, mean 32 and calculated aortic valve area 0.83 cm??? there is no aortic regurgitation Moderate mitral annular calcification. Mild mitral regurgitation Tricuspid valve is structurally normal with mild regurgitation. Estimated right ventricular systolic pressure is 34 mmHg The pulmonic valve is not well visualized Aortic valve gradients and left ventricular function are similar to prior echo dated 17 February 2020 Wall motion Left Ventricle The left ventricle is normal size. The left ventricular systolic function is normal. The left ventric ular ejection fraction is within the normal range. Mild concentric left ventricular hypertrophy. Ther e is normal LV segmental wall motion. There is no ventricular septal defect visualized. LVEF is 55-60 %. Right Ventricle The right ventricle is normal size. The right ventricular systolic function is normal. The RVSP is 34 .5mmHg. Atria Left atrium is borderline dilated. The right atrium size is normal. The interatrial septum is intact with no evidence for an atrial septal defect. Aortic Valve Aortic valve is calcified. Aortic valve is probably trileaflet. Severe aortic stenosis. Peak aortic v alve gradient is 55.2mmHg. Highest mean aortic valve gradient is 32.3mmHg. Calculated AKIRA by the cont inuity equation is .86cm2. No aortic regurgitation is present. Mitral Valve Moderate mitral annular calcification. No evidence of mitral valve stenosis. Mild mitral regurgitatio n. Tricuspid Valve The tricuspid valve is normal in structure. There is no tricuspid valve stenosis. Mild tricuspid regu rgitation. Pulmonic Valve Pulmonic valve is not well visualized. There is no pulmonic valvular stenosis. There is no pulmonic v alvular regurgitation. Great Vessels The aortic root is normal in size. Ascending aorta is not well visualized. Aortic arch is not well vi sualized. The IVC collapses <50% with inspiration. Pericardium There is no pericardial effusion. 2D Dimensions IVSD d PLAX 1.17 cm F: 0.6-1.0 LV Vol A2C d MOD 137.9 mL LVPW d PLAX 1.22 cm F: 0.6 - 1.0 LV Vol A4C d MOD 176.3 mL LVID d PLAX 5.49 cm F: 3.8 - 5.2 LV EF A4C MOD 55.6 % LVDs 3.95 cm F: 2.2 - 3.5 LV EF A2C MOD 56.4 % Ao Root d 2.71 cm F: 2.7 - 3.3 LV EF Biplane MOD 54.9 % LV EF Teichholz 53.2 % SV 86.43 mL LVEF (Gee's) 54.91 % F: 54 - 74 SV Index 41.40 mL/m2 LV Volume 116.39 mL F: 46 - 106 LV Volume Index 55.95 mL/m2 F: 29 - 61 LV Vol Biplane MOD 157.4 mL FS 27.70 % M-Mode TAPSE 2.01 cm (M/F) >1.7 LV Diastology MV E' medial 0.108 (>0.07 m/s) E/A Ratio 1.5 LV E/e MED 12.90 (<14) MV E Vmax 1.39 (0.4-1.3 m/s) MV E' lateral 0.077 (>0.1 m/s) MV A Vmax 0.95 (0.4-1.3 m/s) LV E/e LAT 18.00 (<14) MV E/A Ratio 1.41 MV E/E' medial 12.91 MV E/E' lateral 18.03 Aortic Valve LVOT Area 2.68 cm2 AoV Area Vmax 0.86 cm2 LVOT Vmax 1.20 m/s AoV Area/ BSA (Vmax) 0.41 cm2/m2 LVOT Mean Kenn. 0.83 m/s AKIRA Mean Kenn. 0.83 cm2 LVOT Peak Grad 5.7 mmHg AKIRA Mean Kenn. Index 0.40 cm2/m2 LVOT Mean Grad 3.2 mmHg LVOT VTI 0.328 m LVOT Diam s 1.80 cm AoV Vmax 3.72 m/s Velocity Ratio 0.32 AoV Mean Kenn. 2.70 m/s AoV Peak Grad 55.2 mmHg LVOT SV 87.87 mL AoV Mean Grad 32.3 mmHg AoV VTI 0.997 m AoV Area VTI 0.88 cm2 AoV Area/ BSA (VTI) 0.42 cm/m2 Mitral Valve MV DT 235 (160-240 msec) MR Vmax 5.38 m/s MV PHT 68 msec MR VTI 1.750 m MV Area PHT 3.23 cm2 MR Peak Grad 115.7 mmHg MV VTI 0.467 m MR Mean Grad 87.0 mmHg MV VTI Annulus 0.443 m MR PISA Radius 0.53 cm MV Area VTI 1.79 (4.0-6.0 cm2) MR EROA 0.12 cm2 MR Aliasing Velocity 0.35 m/s MR PISA 1.79 cm2 Pulmonary Valve PV Vmax 1.49 (0.5-1.5 m/s) RVOT Peak Gr. 4.08 mmHg PV Peak Grad 8.8 mmHg RVOT Mean Gr. 2.20 mmHg PV Mean Grad 4.3 mmHg RVOT VTI 0.214 m PV VTI 0.326 m RVOT Vmax 1.01 m/s Tricuspid Valve TR Peak Grad 26.5 mmHg TR Vmax 2.57 m/s RA Pressure 8.00 mmHg RVSP (TR) 34.5 mmHg
--- NOTE | 2020-08-11 08:15 | RT.EKG_ITS ---
APPROVED REPORT Exam: Resting ECG Patient Location: E HR:73 bpm ECG Measurements Heart Rate 73 AXIS MT 155 P 72 QRSd 105 QRS 60 QT 422 T 49 QTc 465 Conclusion Sinus rhythm...normal P axis, V-rate 60- 99 Nonspecific T abnormalities, lateral leads...T <-0.10mV, I aVL V5 V6 I have reviewed and interpreted ECG and agree with software generated interpretation.
--- NOTE | 2020-08-11 08:30 | DI.CT_ITS ---
EXAM: CT CHEST PE CTA CLINICAL HISTORY: 02 sat 78% RA, sob, d/c from hospital yesterday. TECHNIQUE: Imaging Protocol: Axial CT angiography was performed with multi-slice acquisition and mu lti-planar and/or 3D reconstructions. CONTRAST MATERIAL: Intravenous: Omnipaque 350 Contrast volume:structured data in ml COMPARISON: CT CT CHEST W from 04/11/[address] ABDOMEN PELVIS W from 04/11/2019 CR,XR XR PORTABLE CHEST AP from 02/14/2020 CR,XR XR CHEST 2V PA LATERAL from 04/13/2020 CR,XR XR PORTABLE CHEST AP from 08/07/2020 FINDINGS: There are small bilateral pleural effusions and adjacent atelectasis. No pericardial effusion is see n. The heart size appears normal. No pulmonary emboli are seen. There is no evidence of aortic dis section. There may be mild interstitial edema. Images of the upper abdomen show a cirrhotic appearing liver with TIPS in place. The spleen is enlar ged. Body wall edema is present. IMPRESSION: No evidence of pulmonary embolism. Small bilateral pleural effusions and adjacent basilar atelectasis . Mild pulmonary edema. RADIATION DOSE DELIVERED: 774.2mGy.cm Total DLP DATA REPOSITORY: All CT scans at this facility are submitted to the National Radiology Data Registry (NRDR) Dose Index Registry (DIR) with the [employer] ([employer]). RADIATION OPTIMIZATION: All CT scans at this facility use at least one of these dose optimization te chniques: automated exposure control; mA and/or kV adjustment per patient size (includes targeted exa ms where dose is matched to clinical indication); or iterative reconstruction.
[2020-08-11 08:56] LABS: Abs Immature Grans 0.02 10^3/uL (0.0-0.06); Absolute Basophil Count 0.12 10^3/uL (0.0-0.2); Absolute Eosinophil Count 0.82 10^3/uL (0.0-0.7); Absolute Lymphocyte Count 1.37 10^3/uL (1.2-3.4); Absolute Monocyte Count 0.66 10^3/uL (0.1-0.8); Absolute Neutrophil Count 4.24 10^3/uL (1.2-6.7); Basophils % 1.7; Eosinophils % 11.3; HCT 37.2 % (36.0-46.0); HGB 12.5 g/dL (11.2-15.7); Immature Grans % 0.3; Lymphocytes % 18.9; MCH 31.6 pg (27.0-33.0); MCHC 33.6 % (32.0-36.0); MCV 94.2 fL (80-95); MPV 9.7 fL (8.0-11.0); Monocytes % 9.1; Neutrophils % 58.7; Nucleated RBC 0 %; Platelet Count 124 10^3/uL (130-400); RBC 3.95 10^6/uL (3.93-5.22); RDW 14.9 % (11.7-14.6); RDW-SD 50.3 fL; WBC 7.23 10^3/uL (4.4-10.8)
[2020-08-11] MEDS: Normal Saline 1,000 ML 125 ML IV (08:57)
[2020-08-11] MEDS: Normal Saline Flush 10 ML SYR IVP (08:57)
[2020-08-11 08:59] LABS: Lactate 0.9 mmol/L (0.6-1.4)
[2020-08-11 09:09] LABS: INR 1.1 (0.9-1.1); PTT Activated 26.2 sec (21.0-27.5); Prothrombin Time 11.5 sec (9.3-11.0)
[2020-08-11 09:15] LABS: Bilirubin Negative (Negative); Blood Moderate (Negative); Clarity Clear (Clear); Glucose Negative (Negative); Ketones Negative (Negative); Leukocyte Esterase Negative (Negative); Nitrite Negative (Negative); Urobilinogen 0.2 EU/dL (Up TO 0.2)
[2020-08-11 09:16] LABS: ALT 47 U/L (14-59); AST 67 U/L (15-37); Albumin 2.4 g/dL (3.4-5.0); Alkaline Phosphatase 187 U/L (46-116); Anion Gap 2.1 mmol/L (3-11); BUN 16 mg/dL (7-18); Bilirubin, Total 3.2 mg/dL (0.2-1.0); CO2 32.9 mmol/L (21.0-32.0); CREATININE 0.81 mg/dL (0.55-1.02); Calcium 8.8 mg/dL (8.5-10.1); Chloride 105 mmol/L (98-107); Glucose 109 mg/dL (74-106); Magnesium 1.6 mg/dL (1.8-2.4); Potassium 4.6 mmol/L (3.5-5.1); Sodium 140 mmol/L (136-145); Total Protein 6.6 g/dL (6.4-8.2)
[2020-08-11 09:20] LABS: Troponin I 0.09 ng/mL (<0.06)
[2020-08-11 09:21] LABS: NT-proBNP 664 pg/mL (<300)
[2020-08-11 09:25] LABS: Bacteria Rare HPF (Negative); C & S Indicated? No/Sq. Contamination; Casts Negative LPF (Negative); Crystals Negative HPF (Negative); Epithelial Cells Moderate HPF (Negative); Mucus Trace (Negative)
[2020-08-11 09:30] LABS: Procalcitonin 0.3 ng/mL
[2020-08-11] MEDS: Omnipaque 350 MG/ML 100 ML BTL IJ (09:49)
[2020-08-11] MEDS: Normal Saline - Diluent 50 ML VIAL IV (09:50)
--- NOTE | 2020-08-11 10:09 | W.ED.GENAD ---
Discharge Plan Disposition Patient Disposition: [facility] INPATIENT Condition: Serious Discharge Details Chief Complaint: SOB Clinical Impression: Hypoxia, Pulmonary edema, Pleural effusion Admit Date/Time: 08/11/20 12:32 Admit Provider: Cy Rich Attending Provider: Cy Rich Primary Care Provider: Malu Baron ED Provider: Cy Snow Medical Decision Making 65-year-old female with significant past medical history discharged from our facility yesterday with cellulitis on Augmentin and Bactrim. She did not take her morning doses, will give a dose now. She presented with shortness of breath that began yesterday upon leaving the hospital, worsening throughout the evening and overnight. She presents on room air, O2 sats in the high 70s. She was immediately placed on 4 L nasal cannula where her O2 sats went to 99%. IV access immediately obtained. Per patient, her legs are better than what they had been, clinically her mouth appears dry. We will give her 125 IV normal saline per hour for gentle hydration. Will initiate a cardiac work-up including a chest CTA for evaluation of PE, pneumonia, effusions, edema, etc. Patient denies any chest pain whatsoever. We will also initiate a septic work-up given her recent infectious process Patient responded well to the 4 L nasal cannula, was able to be weaned down to 3 L nasal cannula. Patient continues to have fairly impressive weakness, difficulty even getting onto a bedpan. Unable to trial ambulate her given her weakness. Respirations are now 20. O2 sats are 98% on 3 L nasal cannula. Laboratory values reveal a white blood cell count of 3.95 hemoglobin 12.5 hematocrit 37.2 platelet count 124. INR 1.1, lactate 0.9 potassium 4.6 creatinine 0.81 with a GFR greater than 60, magnesium 1.6, troponin 0 0.09, BNP 664. Procalcitonin 0.3. Urine with moderate blood, 10-20 red cells. Covid pending. Chest CTA read by radiology as bilateral pleural effusions with mild pulmonary edema, no PE. Patient with bilateral pleural effusions, pulmonary edema, elevated troponin, requiring 3 L nasal cannula to maintain O2 sats. Will contact our hospitalist team to discuss admission. Case discussed with Dr. Rich. He recommends giving a single dose of 80 mg IV Lasix now here in the ER, placing a Lopez catheter. He does agree the patient needs to be hospitalized but would like to repeat the troponin at the 3-hour eboni before making a decision between MedSurg, ICU, versus transfer. Troponin remains steady at 0.09. EKG performed at 1210, please see official report by Dr. Osuna. Sinus rhythm, ventricular rate of 64. No STEMI. Placed to Dr. Rich who was agreeable to admission. Medical Records Medical records reviewed: Yes I reviewed the patient's medical records. Lab Data Lab results reviewed: Yes I reviewed the patient's lab results. Lab results narrative: 08/11/20 09:30 Blood Blood Culture - Pending 08/11/20 08:32 Blood Blood Culture - Pending Laboratory Tests Range/Units 08/11/20 08/11/20 08/11/20 08:32 08:32 08:32 WBC (4.4-10.8) 10^3/uL RBC (3.93-5.22) 10^6/uL Hgb (11.2-15.7) g/dL Hct (36.0-46.0) % MCV (80-95) fL MCH (27.0-33.0) pg MCHC (32.0-36.0) % RDW (11.7-14.6) % Plt Count (130-400) 10^3/uL MPV (8.0-11.0) fL Immature Gran % Neutrophils % Lymphocytes % Monocytes % Eosinophils % Basophils % Nucleated RBC % % Absolute Neutrophils (1.2-6.7) 10^3/uL Absolute Lymphocytes (1.2-3.4) 10^3/uL Absolute Monocytes (0.1-0.8) 10^3/uL Absolute Eosinophils (0.0-0.7) 10^3/uL Absolute Basophils (0.0-0.2) 10^3/uL PT (9.3-11.0) sec 11.5 H INR (0.9-1.1) 1.1 APTT (21.0-27.5) sec 26.2 VBG Lactate (0.6-1.4) mmol/L Sodium (136-145) mmol/L 140 Potassium (3.5-5.1) mmol/L 4.6 Chloride (98-107) mmol/L 105 Carbon Dioxide (21.0-32.0) mmol/L 32.9 H Anion Gap (3-11) mmol/L 2.1 L BUN (7-18) mg/dL 16 Creatinine (0.55-1.02) mg/dL 0.81 Estimated GFR/1.73 m2 (mL/min/1.73m2) >= 60.00 Glucose (74-106) mg/dL 109 H Calcium (8.5-10.1) mg/dL 8.8 Magnesium (1.8-2.4) mg/dL 1.6 L Total Bilirubin (0.2-1.0) mg/dL 3.2 H AST (15-37) U/L 67 H ALT (14-59) U/L 47 Alkaline Phosphatase (46-116) U/L 187 H Troponin I (<0.06) ng/mL 0.09 H* NT-Pro-B Natriuret Pep (<300) pg/mL 664 H Total Protein (6.4-8.2) g/dL 6.6 Albumin (3.4-5.0) g/dL 2.4 L Procalcitonin ng/mL Urine Color (Yellow) Urine Clarity (Clear) Urine pH (5-8) Ur Specific [place] (1.005-1.025) Urine Protein (Negative) mg/dL Urine Ketones (Negative) mg/dL Urine Blood (Negative) Urine Nitrite (Negative) Urine Bilirubin (Negative) Urine Urobilinogen (Up TO 0.2) EU/dL Ur Leukocyte Esterase (Negative) Urine RBC (0-2) HPF Urine WBC (0-5) HPF Ur Epithelial Cells (Negative) HPF Urine Crystals (Negative) HPF Urine Bacteria (Negative) HPF Urine Casts (Negative) LPF Urine Mucus (Negative) Ur Culture Indicated? Urine Glucose (Negative) mg/dL Range/Units 08/11/20 08/11/20 08/11/20 08:32 08:50 08:55 WBC (4.4-10.8) 10^3/uL 7.23 RBC (3.93-5.22) 10^6/uL 3.95 Hgb (11.2-15.7) g/dL 12.5 Hct (36.0-46.0) % 37.2 MCV (80-95) fL 94.2 MCH (27.0-33.0) pg 31.6 MCHC (32.0-36.0) % 33.6 RDW (11.7-14.6) % 14.9 H Plt Count (130-400) 10^3/uL 124 L MPV (8.0-11.0) fL 9.7 Immature Gran % 0.3 Neutrophils % 58.7 Lymphocytes % 18.9 Monocytes % 9.1 Eosinophils % 11.3 Basophils % 1.7 Nucleated RBC % % 0 Absolute Neutrophils (1.2-6.7) 10^3/uL 4.24 Absolute Lymphocytes (1.2-3.4) 10^3/uL 1.37 Absolute Monocytes (0.1-0.8) 10^3/uL 0.66 Absolute Eosinophils (0.0-0.7) 10^3/uL 0.82 H Absolute Basophils (0.0-0.2) 10^3/uL 0.12 PT (9.3-11.0) sec INR (0.9-1.1) APTT (21.0-27.5) sec VBG Lactate (0.6-1.4) mmol/L 0.9 Sodium (136-145) mmol/L Potassium (3.5-5.1) mmol/L Chloride (98-107) mmol/L Carbon Dioxide (21.0-32.0) mmol/L Anion Gap (3-11) mmol/L BUN (7-18) mg/dL Creatinine (0.55-1.02) mg/dL Estimated GFR/1.73 m2 (mL/min/1.73m2) Glucose (74-106) mg/dL Calcium (8.5-10.1) mg/dL Magnesium (1.8-2.4) mg/dL Total Bilirubin (0.2-1.0) mg/dL AST (15-37) U/L ALT (14-59) U/L Alkaline Phosphatase (46-116) U/L Troponin I (<0.06) ng/mL NT-Pro-B Natriuret Pep (<300) pg/mL Total Protein (6.4-8.2) g/dL Albumin (3.4-5.0) g/dL Procalcitonin ng/mL 0.3 Urine Color (Yellow) Yellow Urine Clarity (Clear) Clear Urine pH (5-8) 7.0 Ur Specific [place] (1.005-1.025) 1.020 Urine Protein (Negative) mg/dL Negative Urine Ketones (Negative) mg/dL Negative Urine Blood (Negative) Moderate H Urine Nitrite (Negative) Negative Urine Bilirubin (Negative) Negative Urine Urobilinogen (Up TO 0.2) EU/dL 0.2 Ur Leukocyte Esterase (Negative) Negative Urine RBC (0-2) HPF 10-20 H Urine WBC (0-5) HPF 3-5 Ur Epithelial Cells (Negative) HPF Moderate Urine Crystals (Negative) HPF Negative Urine Bacteria (Negative) HPF Rare Urine Casts (Negative) LPF Negative Urine Mucus (Negative) Trace Ur Culture Indicated? No/sq. contamination Urine Glucose (Negative) mg/dL Negative Range/Units 08/11/20 11:40 WBC (4.4-10.8) 10^3/uL RBC (3.93-5.22) 10^6/uL Hgb (11.2-15.7) g/dL Hct (36.0-46.0) % MCV (80-95) fL MCH (27.0-33.0) pg MCHC (32.0-36.0) % RDW (11.7-14.6) % Plt Count (130-400) 10^3/uL MPV (8.0-11.0) fL Immature Gran % Neutrophils % Lymphocytes % Monocytes % Eosinophils % Basophils % Nucleated RBC % % Absolute Neutrophils (1.2-6.7) 10^3/uL Absolute Lymphocytes (1.2-3.4) 10^3/uL Absolute Monocytes (0.1-0.8) 10^3/uL Absolute Eosinophils (0.0-0.7) 10^3/uL Absolute Basophils (0.0-0.2) 10^3/uL PT (9.3-11.0) sec INR (0.9-1.1) APTT (21.0-27.5) sec VBG Lactate (0.6-1.4) mmol/L Sodium (136-145) mmol/L Potassium (3.5-5.1) mmol/L Chloride (98-107) mmol/L Carbon Dioxide (21.0-32.0) mmol/L Anion Gap (3-11) mmol/L BUN (7-18) mg/dL Creatinine (0.55-1.02) mg/dL Estimated GFR/1.73 m2 (mL/min/1.73m2) Glucose (74-106) mg/dL Calcium (8.5-10.1) mg/dL Magnesium (1.8-2.4) mg/dL Total Bilirubin (0.2-1.0) mg/dL AST (15-37) U/L ALT (14-59) U/L Alkaline Phosphatase (46-116) U/L Troponin I (<0.06) ng/mL 0.09 H* NT-Pro-B Natriuret Pep (<300) pg/mL Total Protein (6.4-8.2) g/dL Albumin (3.4-5.0) g/dL Procalcitonin ng/mL Urine Color (Yellow) Urine Clarity (Clear) Urine pH (5-8) Ur Specific [place] (1.005-1.025) Urine Protein (Negative) mg/dL Urine Ketones (Negative) mg/dL Urine Blood (Negative) Urine Nitrite (Negative) Urine Bilirubin (Negative) Urine Urobilinogen (Up TO 0.2) EU/dL Ur Leukocyte Esterase (Negative) Urine RBC (0-2) HPF Urine WBC (0-5) HPF Ur Epithelial Cells (Negative) HPF Urine Crystals (Negative) HPF Urine Bacteria (Negative) HPF Urine Casts (Negative) LPF Urine Mucus (Negative) Ur Culture Indicated? Urine Glucose (Negative) mg/dL ECG Data Attestation: I personally reviewed and interpreted this ECG (s) as follows: Interpretation: Please see official report by Dr. Osuna. Sinus rhythm, ventricular of 73. Nonspecific T wave abnormalities. No STEMI. HPI General Mode of arrival: wheelchair. Date/Time Provider Initiated Documentation: 08/11/20 08:14. Limitations to Documentation: no limitations. Information obtained by: patient. HPI Narrative: This is a 65-year-old female, full code, with past medical history of sepsis, cellulitis, portal hypertension, pneumonia, pancytopenia, obesity, hepatic encephalopathy, GI bleed, esophageal varices, aortic stenosis, elephantiasis, who was discharged from our hospital yesterday on Bactrim and Augmentin. She states that when she left the hospital yesterday she felt slightly short of breath however her shortness of breath has gotten dramatically worse over the past 12 hours. She states that her symptoms are worse with exertion or lying flat. She denies any cardiac or pulmonary history. She has never felt this way before. She denies headache, fever, chest pain, productive cough, abdominal pain, nausea, vomiting. She feels as though her cellulitis is dramatically improved. Related Data Home Medications Medication Instructions Recorded Confirmed zinc sulfate 220 mg PO DAILY #90 tab-cap 01/10/17 08/11/20 pen needle, diabetic [BD #180 12/18/17 07/20/20 Ultra-Fine Orig Pen Needle] ferrous sulfate 325 mg (65 mg 325 mg PO DAILY tab 06/11/18 08/11/20 iron) tablet blood sugar diagnostic #300 strip 09/13/18 07/20/20 rifaximin 550 mg tablet 550 mg PO BID #180 tab 11/12/19 08/11/20 sucralfate 1 gram tablet 1 gm PO AC & HS #360 tab 11/12/19 08/11/20 lactulose 10 g PO TID 02/18/20 08/11/20 nadolol 40 mg PO DAILY #30 tab 02/20/20 08/11/20 spironolactone 50 mg PO DAILY #30 tab 02/20/20 08/11/20 furosemide 20 mg tablet 40 mg PO DAILY #180 cap 03/02/20 08/11/20 pantoprazole 40 mg tablet,delayed 40 mg PO DAILY #180 tab 03/02/20 08/11/20 release amlodipine 5 mg tablet 5 mg PO DAILY #90 tab 04/21/20 08/11/20 pregabalin 100 mg capsule 100 mg PO TID #270 cap 05/10/20 08/11/20 ammonium lactate 12 % lotion 1 applic TOPICAL BID 06/08/20 08/11/20 triamcinolone acetonide 0.1 % 1 applic TP QID #80 gm 07/12/20 08/11/20 topical cream oxycodone 5 mg tablet 5 mg PO BID PRN #15 tab MDD 3 07/20/20 08/11/20 ondansetron HCl 4 mg tablet 4 mg PO DAILY PRN #90 tab-cap 07/29/20 08/11/20 fluocinonide 1 applic TOPICAL DAILY 08/07/20 08/11/20 mupirocin 0 applic TOPICAL DAILY 08/07/20 08/11/20 L. acidophilus,casei,rhamnosus 1 cap PO DAILY #30 cap 08/10/20 08/11/20 [Bio-K plus] amoxicillin-pot clavulanate 1 tab PO BID #28 tab 08/10/20 08/11/20 ascorbic acid (vitamin C) [Vitamin 500 mg PO DAILY #30 tab 08/10/20 08/11/20 C] hydroxyzine HCl 25 mg PO QID PRN PRN #20 tab 08/10/20 08/11/20 sulfamethoxazole-trimethoprim 1 tab PO Q12H #28 tab 08/10/20 08/11/20 Previous Rx's Medication Instructions Recorded pen needle, diabetic [BD #180 12/18/17 Ultra-Fine Orig Pen Needle] blood sugar diagnostic #300 strip 09/13/18 rifaximin 550 mg tablet 550 mg PO BID #180 tab 11/12/19 sucralfate 1 gram tablet 1 gm PO AC & HS #360 tab 11/12/19 nadolol 40 mg PO DAILY #30 tab 02/20/20 spironolactone 50 mg PO DAILY #30 tab 02/20/20 furosemide 20 mg tablet 40 mg PO DAILY #180 cap 03/02/20 pantoprazole 40 mg tablet,delayed 40 mg PO DAILY #180 tab 03/02/20 release amlodipine 5 mg tablet 5 mg PO DAILY #90 tab 04/21/20 pregabalin 100 mg capsule 100 mg PO TID #270 cap 05/10/20 triamcinolone acetonide 0.1 % 1 applic TP QID #80 gm 07/12/20 topical cream oxycodone 5 mg tablet 5 mg PO BID PRN #15 tab MDD 3 07/20/20 ondansetron HCl 4 mg tablet 4 mg PO DAILY PRN #90 tab-cap 07/29/20 L. acidophilus,casei,rhamnosus 1 cap PO DAILY #30 cap 08/10/20 [Bio-K plus] amoxicillin-pot clavulanate 1 tab PO BID #28 tab 08/10/20 ascorbic acid (vitamin C) [Vitamin 500 mg PO DAILY #30 tab 08/10/20 C] hydroxyzine HCl 25 mg PO QID PRN PRN #20 tab 08/10/20 sulfamethoxazole-trimethoprim 1 tab PO Q12H #28 tab 08/10/20 Allergies Allergy/AdvReac Type Severity Reaction Status Date / Time gabapentin Allergy Intermediate Local Unverified 08/11/20 08:34 reaction on skin lisinopril AdvReac Itching Verified 08/11/20 08:34 General Stated Complaint: SOB JÚNIOR: 2 Review of Systems Constitutional Constitutional: Reports fatigue, Denies fever(s) and Denies headache(s) ENT Ears, Nose, Mouth, and Throat: Denies headache(s) and Denies neck pain Cardiovascular Cardiovascular: Denies chest pain and Reports dyspnea Respiratory Respiratory: Reports cough (Mild, dry), Reports dyspnea and Denies wheezing Gastrointestinal Gastrointestinal: Denies abdominal pain, Denies nausea and Denies vomiting Genitourinary Genitourinary: Denies dysuria Musculoskeletal Musculoskeletal: Denies back pain and Denies neck pain Integumentary/Breasts Skin/Breast: Reports erythema (Legs, chronic) Neurologic Neurologic: Denies headache(s) and Reports weakness (Generalized) Endocrine Endocrine: Reports fatigue Allergic/Immunologic Allergic/Immunologic: Denies wheezing [facility] Medical History (Updated 08/11/20 @ 13:38 by KALEN German) Abdominal pain, chronic, epigastric (03/23/16) Advance directive on file Annual physical exam (02/22/18) Aortic stenosis, severe Bacteremia due to group B Streptococcus Bleeding esophageal varices (03/10/16) Breast mass CAP (community acquired pneumonia) Carpal tunnel syndrome right; s/p release Cellulitis Cervical disc disorder with myelopathy (09/04/12) Chronic epigastric pain (03/23/16) DVT prophylaxis Edema, unspecified 06/28/16 B/L Elevation of level of transaminase and lactic acid dehydrogenase (LDH) Epistaxis Esophageal varices with hemorrhage Fever Fever, unknown origin 04/14/16 Fluid overload Foot pain GI bleed Gram-positive bacteremia Hepatic encephalopathy (03/10/16) Hyperlipidemia (09/04/12) Incisional hernia (01/15/15) Increased body mass index Mild epistaxis 12/21/15 Nausea Pancytopenia Physical deconditioning Pneumonia Portal hypertension Sepsis Sepsis syndrome [place] nodule right[place] [place] 2.3[place] nodule; neg. biopsy Uninodular goiter Tubular adenoma (04/12/13) Surgical History Colonoscopy - IV Sedation (04/12/13) DR. Bhumika CLAYTON Open Carpal Tunnel release RIGHT PROCEDURES OTHER CERVICAL FUS ANT [place] [facility] [place] NEGATIVE THYROID BX S/P carpal tunnel release right S/P cervical spinal fusion anterior; discectomy S/P cervical spinal fusion anterior;discectomy S/P tonsillectomy Status post biopsy of thyroid gland 09/18/08 neg Status post carpal tunnel release Status post cervical spinal arthrodesis Status post tonsillectomy Tonsillectomy Family History Mother Pancreatic cancer Father Diabetes Essential hypertension Stroke Sister Heart disease Brother Bone cancer Liver cancer Maternal Grandfather No problems noted. Paternal Grandfather No problems noted. Maternal Grandmother , OLD AGE at age 89. No problems noted. Paternal Grandmother Breast cancer Sister Diabetes Colon cancer Rectal cancer Sister Diabetes Son No problems noted. Son No problems noted. Daughter No problems noted. Daughter Alcohol abuse Asthma Social History Smoking/Tobacco Use Status: Former Tobacco Use Tobacco: How many years used: 2 Second Hand Exposure: Yes Smoking risk assessment performed?: Yes Alcohol Intake: never Drug use: Never Counseling given: No Household members: spouse and children Housing: house Communication Needs: None Do you need help understanding health information?: Rarely Pets and animals: Yes Pets and animals: dog(s) Sexually active: No Do you think of yourself as: straight/heterosexual Current gender identity: female What is your relationship status?: How often do you talk on the phone with friends or family?: three or more times per week How often do you get together with friends or relatives?: once per week How often do you attend mormonism or quaker services?: 1-3 times per year Do you belong to any clubs or organized social groups?: no Panel score (0-1 are the most socially isolated patients): 2 What type of physical activity do you participate in: decline to answer Duration: < 15 minutes/day Frequency: 1-2 times per week Lyubov/Moravian: Episcopal Special lyubov needs: No Seatbelt use: always Helmet use: No Drive intox or ride w/intox dedicated driver: No Do you feel safe at home: Yes Do you feel safe in your relationship?: Yes Exam Const General: cooperative and in distress Orientation: alert, awake and oriented x3 HENMT Head: normal to inspection, normocephalic and atraumatic Face and sinus: normal facial exam Mouth: moist mucous membranes abnormal (Dry) Throat: posterior oropharynx normal Eyes General: appearance normal, both eyes and all related structures Conjunctivae: conjunctivae normal Sclera: sclerae normal Neck Neck: normal visual inspection, full ROM, no lymphadenopathy, no meningeal signs, trachea midline, supple and nontender Resp Effort & Inspection: able to speak in complete sentences, respiratory distress (Mild) and tachypneic Auscultation: diminished lung sounds bilaterally in the lower lung giraldo Cardio Jugular venous pressure: no JVD Rate: regular rate Rhythm: regular rhythm GI Inspection: normal to inspection Palpation: soft and nontender Back/Spine/Pelvis Back: No back tenderness Skin General skin exam: no rashes or lesions noted Neuro General: patient alert, patient awake, patient oriented x3, moves all extremities and no focal motor deficits Cognition: normal cognition Speech: speech normal Motor: muscle tone normal throughout Sensory Exam: no sensory deficits noted Extrem General: full ROM, capillary refill normal and pedal edema bilaterally non-pitting and 3+ (Hyperpigmentation but without erythema, warmth, tenderness) Psych Appearance: grossly normal Mental Status: mental status grossly normal Course Vital Signs Vital signs: Vital Signs Temperature 37.1 C 08/11/20 08:21 Pulse 74 08/11/20 08:21 Respiratory Rate 26 H 08/11/20 08:21 Blood Pressure 138/42 L 08/11/20 08:21 Pulse Oximetry 80 L 08/11/20 08:21 Temperature 37.1 C 08/11/20 08:21 Pulse 74 08/11/20 08:21 Respiratory Rate 26 H 08/11/20 08:21 Respiratory Effort 08/11/20 08:28 Blood Pressure 138/42 L 08/11/20 08:21 Blood Pressure Position Supine 08/11/20 08:21 Pulse Oximetry 97 08/11/20 08:27 Oxygen Delivery Method Nasal Cannula 08/11/20 08:27 Oxygen Flow Rate 4 08/11/20 08:27 Pain Level 0 08/11/20 08:21 Lab/Test Results Lab/Test Results: 08/11/20 09:30 Blood Blood Culture - Pending 08/11/20 08:32 Blood Blood Culture - Pending Laboratory Tests Range/Units 08/11/20 08/11/20 08/11/20 08:32 08:32 08:32 WBC (4.4-10.8) 10^3/uL RBC (3.93-5.22) 10^6/uL Hgb (11.2-15.7) g/dL Hct (36.0-46.0) % MCV (80-95) fL MCH (27.0-33.0) pg MCHC (32.0-36.0) % RDW (11.7-14.6) % Plt Count (130-400) 10^3/uL MPV (8.0-11.0) fL Immature Gran % Neutrophils % Lymphocytes % Monocytes % Eosinophils % Basophils % Nucleated RBC % % Absolute Neutrophils (1.2-6.7) 10^3/uL Absolute Lymphocytes (1.2-3.4) 10^3/uL Absolute Monocytes (0.1-0.8) 10^3/uL Absolute Eosinophils (0.0-0.7) 10^3/uL Absolute Basophils (0.0-0.2) 10^3/uL PT (9.3-11.0) sec 11.5 H INR (0.9-1.1) 1.1 APTT (21.0-27.5) sec 26.2 VBG Lactate (0.6-1.4) mmol/L Sodium (136-145) mmol/L 140 Potassium (3.5-5.1) mmol/L 4.6 Chloride (98-107) mmol/L 105 Carbon Dioxide (21.0-32.0) mmol/L 32.9 H Anion Gap (3-11) mmol/L 2.1 L BUN (7-18) mg/dL 16 Creatinine (0.55-1.02) mg/dL 0.81 Estimated GFR/1.73 m2 (mL/min/1.73m2) >= 60.00 Glucose (74-106) mg/dL 109 H Calcium (8.5-10.1) mg/dL 8.8 Magnesium (1.8-2.4) mg/dL 1.6 L Total Bilirubin (0.2-1.0) mg/dL 3.2 H AST (15-37) U/L 67 H ALT (14-59) U/L 47 Alkaline Phosphatase (46-116) U/L 187 H Troponin I (<0.06) ng/mL 0.09 H* NT-Pro-B Natriuret Pep (<300) pg/mL 664 H Total Protein (6.4-8.2) g/dL 6.6 Albumin (3.4-5.0) g/dL 2.4 L Procalcitonin ng/mL Urine Color (Yellow) Urine Clarity (Clear) Urine pH (5-8) Ur Specific [place] (1.005-1.025) Urine Protein (Negative) mg/dL Urine Ketones (Negative) mg/dL Urine Blood (Negative) Urine Nitrite (Negative) Urine Bilirubin (Negative) Urine Urobilinogen (Up TO 0.2) EU/dL Ur Leukocyte Esterase (Negative) Urine RBC (0-2) HPF Urine WBC (0-5) HPF Ur Epithelial Cells (Negative) HPF Urine Crystals (Negative) HPF Urine Bacteria (Negative) HPF Urine Casts (Negative) LPF Urine Mucus (Negative) Ur Culture Indicated? Urine Glucose (Negative) mg/dL Range/Units 08/11/20 08/11/20 08/11/20 08:32 08:50 08:55 WBC (4.4-10.8) 10^3/uL 7.23 RBC (3.93-5.22) 10^6/uL 3.95 Hgb (11.2-15.7) g/dL 12.5 Hct (36.0-46.0) % 37.2 MCV (80-95) fL 94.2 MCH (27.0-33.0) pg 31.6 MCHC (32.0-36.0) % 33.6 RDW (11.7-14.6) % 14.9 H Plt Count (130-400) 10^3/uL 124 L MPV (8.0-11.0) fL 9.7 Immature Gran % 0.3 Neutrophils % 58.7 Lymphocytes % 18.9 Monocytes % 9.1 Eosinophils % 11.3 Basophils % 1.7 Nucleated RBC % % 0 Absolute Neutrophils (1.2-6.7) 10^3/uL 4.24 Absolute Lymphocytes (1.2-3.4) 10^3/uL 1.37 Absolute Monocytes (0.1-0.8) 10^3/uL 0.66 Absolute Eosinophils (0.0-0.7) 10^3/uL 0.82 H Absolute Basophils (0.0-0.2) 10^3/uL 0.12 PT (9.3-11.0) sec INR (0.9-1.1) APTT (21.0-27.5) sec VBG Lactate (0.6-1.4) mmol/L 0.9 Sodium (136-145) mmol/L Potassium (3.5-5.1) mmol/L Chloride (98-107) mmol/L Carbon Dioxide (21.0-32.0) mmol/L Anion Gap (3-11) mmol/L BUN (7-18) mg/dL Creatinine (0.55-1.02) mg/dL Estimated GFR/1.73 m2 (mL/min/1.73m2) Glucose (74-106) mg/dL Calcium (8.5-10.1) mg/dL Magnesium (1.8-2.4) mg/dL Total Bilirubin (0.2-1.0) mg/dL AST (15-37) U/L ALT (14-59) U/L Alkaline Phosphatase (46-116) U/L Troponin I (<0.06) ng/mL NT-Pro-B Natriuret Pep (<300) pg/mL Total Protein (6.4-8.2) g/dL Albumin (3.4-5.0) g/dL Procalcitonin ng/mL 0.3 Urine Color (Yellow) Yellow Urine Clarity (Clear) Clear Urine pH (5-8) 7.0 Ur Specific [place] (1.005-1.025) 1.020 Urine Protein (Negative) mg/dL Negative Urine Ketones (Negative) mg/dL Negative Urine Blood (Negative) Moderate H Urine Nitrite (Negative) Negative Urine Bilirubin (Negative) Negative Urine Urobilinogen (Up TO 0.2) EU/dL 0.2 Ur Leukocyte Esterase (Negative) Negative Urine RBC (0-2) HPF 10-20 H Urine WBC (0-5) HPF 3-5 Ur Epithelial Cells (Negative) HPF Moderate Urine Crystals (Negative) HPF Negative Urine Bacteria (Negative) HPF Rare Urine Casts (Negative) LPF Negative Urine Mucus (Negative) Trace Ur Culture Indicated? No/sq. contamination Urine Glucose (Negative) mg/dL Negative Critical Care Time Critical Care Time Critical Care Time: Yes Total Critical Care Time: 35 Attestation: Upon my evaluation, this patient had a high probability of clinically significant, life-threatening deterioration due to their current medical conditions, which required my direct attention, intervention, and personal management. I have personally provided greater than 30 minutes of critical care time exclusive of the time spend on separately billable procedures. Time includes obtaining a history, examining the patient, pulse oximetry, review of laboratory data, radiology results, discussion with consultants, arranging urgent treatment with development of a management plan, evaluation of patient's response to treatment, and monitoring for potential decompensation. Interventions were performed as documented above.
[2020-08-11] MEDS: Amoxicillin 875/Clav. 125 TAB PO (10:31)
[2020-08-11] MEDS: Sulfameth/Trimeth DS TAB 1 TAB PO (10:32)
[2020-08-11] MEDS: Furosemide 100 MG/10 ML VIAL 80 MG IVP (11:47)
--- NOTE | 2020-08-11 12:00 | RT.EKG_ITS ---
APPROVED REPORT Exam: Resting ECG Patient Location: E HR:64 bpm ECG Measurements Heart Rate 64 AXIS GA 160 P 73 QRSd 108 QRS 58 QT 428 T 37 QTc 442 Conclusion Sinus rhythm...normal P axis, V-rate 60- 99 I have reviewed and interpreted ECG and agree with software generated interpretation.
[2020-08-11 12:14] LABS: Troponin I 0.09 ng/mL (<0.06)
--- NOTE | 2020-08-11 12:40 | W.PM.HP.N ---
Date of service: 08/11/20 Time of Service: 12:40 Assessment and Plan Assessment and plan (1) Heart failure: Status: Acute Assessment and plan: received diuretics in the ED, echo results pending. symptoms improved after diuresing 1400 cc. continue strict I&O, daily weights diuretics. (2) Cellulitis: Status: Acute Assessment and plan: improving, continue bactrim and augmentin to complete course Qualifiers: Laterality: left Site of cellulitis: extremity Site of cellulitis of extremity: lower extremity Qualified Code(s): L03.116 - Cellulitis of left lower limb (3) Essential hypertension: Status: Chronic Assessment and plan: stable, continue to monitor. continue home medications. adjust as needed. (4) Diabetes mellitus: Status: Chronic Assessment and plan: diabetic diet, sliding scale coverage with blood sugar checks ac/hs Qualifiers: Diabetes mellitus complication status: without complication Diabetes mellitus long-term insulin use: without terminal press operator use Diabetes mellitus type: type 2 Qualified Code(s): E11.9 - Type 2 diabetes mellitus without complications (5) Cirrhosis: Status: Chronic Assessment and plan: continue home medications ribaximin spironalcatone, lasix, stable with total bilirubin down to 3.2 from 4.2 3 days ago. Qualifiers: Hepatic cirrhosis type: other cirrhosis Qualified Code(s): K74.69 - Other cirrhosis of liver (6) DVT prophylaxis: Status: Acute Assessment and plan: Cautiously initiated heparin in background of cirrhosis with previous bleeding varices and thrombocytopenia. Monitor platelets. (7) Discharge planning issues: Status: Acute Assessment and plan: plan to discharge home when medically stable. discussed with DR Rich History of Present Illness History of Present Illness Chief Complaint: shortness of breath Narrative: discharge yesterday from hospital where she was admitted for cellultitis, was improving and downstepped to augmentin and bactrim. she reports last night she had increased shortness of breath and could not lie down to sleep, having to sleep in recliner. she denies fever or chest pain. work up in the ED shows CHF. she was given lasix IV and will be admitted to med/surg. she also was noted to have an elevated troponin. no acute ST segment changes, repeat troponin remained flat at 0.09. she will be admitted to med/surg under hospitalist services. Review of Systems All systems reviewed & are unremarkable except as noted in HPI and below Constitutional Constitutional: Reports difficulty sleeping, Denies fever(s) and Denies headache(s) Eyes Eyes: Denies change in vision ENT Ears, Nose, Mouth, and Throat: Denies dizziness and Denies headache(s) Cardiovascular Cardiovascular: Denies chest pain, Denies lightheadedness and Reports dyspnea Respiratory Respiratory: Denies chest congestion, Denies cough, Reports dyspnea and Denies wheezing Gastrointestinal Gastrointestinal: Denies abdominal pain, Denies nausea and Denies vomiting Genitourinary Genitourinary: Denies difficulty voiding Musculoskeletal Musculoskeletal: Reports muscle weakness (generalized) Integumentary/Breasts Skin/Breast: Reports dry skin and Reports other (chronic discoloration consistent with venous stasis) Neurologic Neurologic: Denies dizziness and Denies headache(s) Allergic/Immunologic Allergic/Immunologic: Denies wheezing [facility] Medical History (Updated 08/11/20 @ 16:07 by Li Guerra NP) Abdominal pain, chronic, epigastric (03/23/16) Advance directive on file Annual physical exam (02/22/18) Aortic stenosis, severe Bacteremia due to group B Streptococcus Bleeding esophageal varices (03/10/16) Breast mass CAP (community acquired pneumonia) Carpal tunnel syndrome right; s/p release Cellulitis Cervical disc disorder with myelopathy (09/04/12) Chronic epigastric pain (03/23/16) DVT prophylaxis Edema, unspecified 06/28/16 B/L Elevation of level of transaminase and lactic acid dehydrogenase (LDH) Epistaxis Esophageal varices with hemorrhage Fever Fever, unknown origin 04/14/16 Fluid overload Foot pain GI bleed Gram-positive bacteremia Hepatic encephalopathy (03/10/16) Hyperlipidemia (09/04/12) Incisional hernia (01/15/15) Increased body mass index Mild epistaxis 12/21/15 Nausea Pancytopenia Physical deconditioning Pneumonia Portal hypertension Sepsis Sepsis syndrome Thyroid nodule right; 2008[place] [place]; 2.3cm nodule; neg. biopsy Uninodular goiter Tubular adenoma (04/12/13) Surgical History Colonoscopy - IV Sedation (04/12/13) DR. Bhumika CLAYTON Open Carpal Tunnel release RIGHT PROCEDURES OTHER CERVICAL FUS ANT discectomy 2008 [facility] [place]; NEGATIVE THYROID BX S/P carpal tunnel release right S/P cervical spinal fusion anterior; discectomy S/P cervical spinal fusion anterior;discectomy S/P tonsillectomy Status post biopsy of thyroid gland 09/18/08 neg Status post carpal tunnel release Status post cervical spinal arthrodesis Status post tonsillectomy Tonsillectomy Family History Mother Pancreatic cancer Father Diabetes Essential hypertension Stroke Sister Heart disease Brother Bone cancer Liver cancer Maternal Grandfather No problems noted. Paternal Grandfather No problems noted. Maternal Grandmother , OLD AGE at age 89. No problems noted. Paternal Grandmother Breast cancer Sister Diabetes Colon cancer Rectal cancer Sister Diabetes Son No problems noted. Son No problems noted. Daughter No problems noted. Daughter Alcohol abuse Asthma Social History Smoking/Tobacco Use Status: Former Tobacco Use Tobacco: How many years used: 2 Second Hand Exposure: Yes Smoking risk assessment performed?: Yes Alcohol Intake: never Drug use: Never Counseling given: No Household members: spouse and children Housing: house Communication Needs: None Do you need help understanding health information?: Rarely Pets and animals: Yes Pets and animals: dog(s) Sexually active: No Do you think of yourself as: straight/heterosexual Current gender identity: female What is your relationship status?: How often do you talk on the phone with friends or family?: three or more times per week How often do you get together with friends or relatives?: once per week How often do you attend faith or presybeterian services?: 1-3 times per year Do you belong to any clubs or organized social groups?: no Panel score (0-1 are the most socially isolated patients): 2 What type of physical activity do you participate in: decline to answer Duration: < 15 minutes/day Frequency: 1-2 times per week Lyubov/Latter Day: Restoration Special lyubov needs: No Seatbelt use: always Helmet use: No Drive intox or ride w/intox box truck driver: No Do you feel safe at home: Yes Do you feel safe in your relationship?: Yes Meds Home Medications and Allergies Home Medications Medication Instructions Recorded Confirmed Type zinc sulfate 220 mg PO DAILY #90 tab-cap 01/10/17 08/11/20 History pen needle, diabetic [BD #180 12/18/17 07/20/20 Rx Ultra-Fine Orig Pen Needle] ferrous sulfate 325 mg (65 mg 325 mg PO DAILY tab 06/11/18 08/11/20 History iron) tablet blood sugar diagnostic #300 strip 09/13/18 07/20/20 Rx rifaximin 550 mg tablet 550 mg PO BID #180 tab 11/12/19 08/11/20 Rx sucralfate 1 gram tablet 1 gm PO AC & HS #360 tab 11/12/19 08/11/20 Rx lactulose 10 g PO TID 02/18/20 08/11/20 History nadolol 40 mg PO DAILY #30 tab 02/20/20 08/11/20 Rx spironolactone 50 mg PO DAILY #30 tab 02/20/20 08/11/20 Rx furosemide 20 mg tablet 40 mg PO DAILY #180 cap 03/02/20 08/11/20 Rx pantoprazole 40 mg tablet,delayed 40 mg PO DAILY #180 tab 03/02/20 08/11/20 Rx release amlodipine 5 mg tablet 5 mg PO DAILY #90 tab 04/21/20 08/11/20 Rx pregabalin 100 mg capsule 100 mg PO TID #270 cap 05/10/20 08/11/20 Rx ammonium lactate 12 % lotion 1 applic TOPICAL BID 06/08/20 08/11/20 History triamcinolone acetonide 0.1 % 1 applic TP QID #80 gm 07/12/20 08/11/20 Rx topical cream oxycodone 5 mg tablet 5 mg PO BID PRN #15 tab MDD 3 07/20/20 08/11/20 Rx ondansetron HCl 4 mg tablet 4 mg PO DAILY PRN #90 tab-cap 07/29/20 08/11/20 Rx fluocinonide 1 applic TOPICAL DAILY 08/07/20 08/11/20 History mupirocin 0 applic TOPICAL DAILY 08/07/20 08/11/20 History L. acidophilus,casei,rhamnosus 1 cap PO DAILY #30 cap 08/10/20 08/11/20 Rx [Bio-K plus] amoxicillin-pot clavulanate 1 tab PO BID #28 tab 08/10/20 08/11/20 Rx ascorbic acid (vitamin C) [Vitamin 500 mg PO DAILY #30 tab 08/10/20 08/11/20 Rx C] hydroxyzine HCl 25 mg PO QID PRN PRN #20 tab 08/10/20 08/11/20 Rx sulfamethoxazole-trimethoprim 1 tab PO Q12H #28 tab 08/10/20 08/11/20 Rx Allergies Allergy/AdvReac Type Severity Reaction Status Date / Time gabapentin Allergy Intermediate Local Unverified 08/11/20 08:34 reaction on skin lisinopril AdvReac Itching Verified 08/11/20 08:34 Exam Const General: cooperative and in distress Orientation: alert, awake and oriented x3 HENMT Head: normal to inspection, normocephalic and atraumatic Face and sinus: normal facial exam Mouth: moist mucous membranes abnormal (Dry) Throat: posterior oropharynx normal Eyes General: appearance normal, both eyes and all related structures Conjunctivae: conjunctivae normal Sclera: sclerae normal Neck Neck: normal visual inspection, full ROM, no lymphadenopathy, no meningeal signs, trachea midline, supple and nontender Resp Effort & Inspection: able to speak in complete sentences, respiratory distress (Mild) and tachypneic Auscultation: diminished lung sounds bilaterally in the lower lung giraldo Cardio Jugular venous pressure: no JVD Rate: regular rate Rhythm: regular rhythm GI Inspection: normal to inspection Palpation: soft and nontender Back/Spine/Pelvis Back: No back tenderness Skin General skin exam: no rashes or lesions noted Neuro General: patient alert, patient awake, patient oriented x3, moves all extremities and no focal motor deficits Cognition: normal cognition Speech: speech normal Motor: muscle tone normal throughout Sensory Exam: no sensory deficits noted Extrem General: full ROM, capillary refill normal and pedal edema bilaterally non-pitting and 3+ (Hyperpigmentation but without erythema, warmth, tenderness) Psych Appearance: grossly normal Mental Status: mental status grossly normal Results Labs Result diagrams: 08/12/20 06:30 08/12/20 06:30 Labs: Laboratory Results - last 24 hr 08/11/20 08/11/20 08/11/20 08:32 08:32 08:32 WBC RBC Hgb Hct MCV MCH MCHC RDW Plt Count MPV Immature Gran % Neutrophils % Lymphocytes % Monocytes % Eosinophils % Basophils % Nucleated RBC % Absolute Neutrophils Absolute Lymphocytes Absolute Monocytes Absolute Eosinophils Absolute Basophils PT 11.5 H INR 1.1 APTT 26.2 VBG Lactate Sodium 140 Potassium 4.6 Chloride 105 Carbon Dioxide 32.9 H Anion Gap 2.1 L BUN 16 Creatinine 0.81 Estimated GFR/1.73 m2 >= 60.00 Glucose 109 H Calcium 8.8 Magnesium 1.6 L Total Bilirubin 3.2 H AST 67 H ALT 47 Alkaline Phosphatase 187 H Troponin I 0.09 H* NT-Pro-B Natriuret Pep 664 H Total Protein 6.6 Albumin 2.4 L Procalcitonin Urine Color Urine Clarity Urine pH Ur Specific [place] Urine Protein Urine Ketones Urine Blood Urine Nitrite Urine Bilirubin Urine Urobilinogen Ur Leukocyte Esterase Urine RBC Urine WBC Ur Epithelial Cells Urine Crystals Urine Bacteria Urine Casts Urine Mucus Ur Culture Indicated? Urine Glucose 08/11/20 08/11/20 08/11/20 08:32 08:50 08:55 WBC 7.23 RBC 3.95 Hgb 12.5 Hct 37.2 MCV 94.2 MCH 31.6 MCHC 33.6 RDW 14.9 H Plt Count 124 L MPV 9.7 Immature Gran % 0.3 Neutrophils % 58.7 Lymphocytes % 18.9 Monocytes % 9.1 Eosinophils % 11.3 Basophils % 1.7 Nucleated RBC % 0 Absolute Neutrophils 4.24 Absolute Lymphocytes 1.37 Absolute Monocytes 0.66 Absolute Eosinophils 0.82 H Absolute Basophils 0.12 PT INR APTT VBG Lactate 0.9 Sodium Potassium Chloride Carbon Dioxide Anion Gap BUN Creatinine Estimated GFR/1.73 m2 Glucose Calcium Magnesium Total Bilirubin AST ALT Alkaline Phosphatase Troponin I NT-Pro-B Natriuret Pep Total Protein Albumin Procalcitonin 0.3 Urine Color Yellow Urine Clarity Clear Urine pH 7.0 Ur Specific [place] 1.020 Urine Protein Negative Urine Ketones Negative Urine Blood Moderate H Urine Nitrite Negative Urine Bilirubin Negative Urine Urobilinogen 0.2 Ur Leukocyte Esterase Negative Urine RBC 10-20 H Urine WBC 3-5 Ur Epithelial Cells Moderate Urine Crystals Negative Urine Bacteria Rare Urine Casts Negative Urine Mucus Trace Ur Culture Indicated? No/sq. contamination Urine Glucose Negative 08/11/20 11:40 WBC RBC Hgb Hct MCV MCH MCHC RDW Plt Count MPV Immature Gran % Neutrophils % Lymphocytes % Monocytes % Eosinophils % Basophils % Nucleated RBC % Absolute Neutrophils Absolute Lymphocytes Absolute Monocytes Absolute Eosinophils Absolute Basophils PT INR APTT VBG Lactate Sodium Potassium Chloride Carbon Dioxide Anion Gap BUN Creatinine Estimated GFR/1.73 m2 Glucose Calcium Magnesium Total Bilirubin AST ALT Alkaline Phosphatase Troponin I 0.09 H* NT-Pro-B Natriuret Pep Total Protein Albumin Procalcitonin Urine Color Urine Clarity Urine pH Ur Specific [place] Urine Protein Urine Ketones Urine Blood Urine Nitrite Urine Bilirubin Urine Urobilinogen Ur Leukocyte Esterase Urine RBC Urine WBC Ur Epithelial Cells Urine Crystals Urine Bacteria Urine Casts Urine Mucus Ur Culture Indicated? Urine Glucose Last Vital Signs Temp 36.7 C 08/11/20 10:18 Pulse 66 08/11/20 10:46 Resp 20 08/11/20 11:01 BP 135/41 L 08/11/20 10:46 Pulse Ox 99 08/11/20 10:50 COVID-19 Screening Have you, or household traveled for leisure in last 14 days?: No
[2020-08-11] MEDS: Pregabalin 100 MG CAP PO ×2 (14:30→20:37)
[2020-08-11] MEDS: Lactulose 20 GM/30 ML CUP 10 GM PO ×2 (14:30→20:37)
[2020-08-11] MEDS: Insulin Aspart 300 UNITS/3 ML PEN SC (17:05)
[2020-08-11] MEDS: Sucralfate 1 GM TAB PO ×2 (17:10→20:37)
[2020-08-11] MEDS: Triamcinolone 0.1% CR 15 GM TUBE TP ×2 (17:10→20:38)
[2020-08-11] MEDS: PIPERACILLIN/TAZO 3.375 GM in Normal Saline 50 ML IVPB (18:50)
[2020-08-11 19:18] LABS: Troponin I 0.08 ng/mL (<0.06)
[2020-08-11] MEDS: Rifaximin 550 MG TAB PO (20:37)
[2020-08-11] MEDS: Acetaminophen 325 MG TAB 650 MG PO (20:38)
[2020-08-11] MEDS: Lachydrin 12% LOTION 225 GM BTL TP (20:38)
[2020-08-11] MEDS: Heparin 5,000 UNITS/ML VIAL 5000 UNITS SC (21:23)
[2020-08-12] VITALS (7 sets, daily range): BP systolic 125–135; BP diastolic 51–68; PULSE 59–77; RESP 18–20; TEMP 36.2–37.4; O2SAT 90–99
[2020-08-12] MEDS: PIPERACILLIN/TAZO 3.375 GM in Normal Saline 50 ML IVPB ×3 (00:04→11:42)
[2020-08-12] MEDS: Normal Saline Flush 10 ML SYR IVP ×3 (00:04→11:43)
[2020-08-12 06:57] LABS: Abs Immature Grans 0.02 10^3/uL (0.0-0.06); Absolute Basophil Count 0.14 10^3/uL (0.0-0.2); Absolute Lymphocyte Count 1.42 10^3/uL (1.2-3.4); Absolute Monocyte Count 0.66 10^3/uL (0.1-0.8); Absolute Neutrophil Count 3.76 10^3/uL (1.2-6.7); Basophils % 2.1; Eosinophils % 9.1; Immature Grans % 0.3; Lymphocytes % 21.5; MCH 31.4 pg (27.0-33.0); MCHC 33.3 % (32.0-36.0); MCV 94.2 fL (80-95); MPV 9.9 fL (8.0-11.0); Nucleated RBC 0 %; Platelet Count 100 10^3/uL (130-400); RBC 3.82 10^6/uL (3.93-5.22); RDW 14.9 % (11.7-14.6)
[2020-08-12 07:38] LABS: Anion Gap 1.5 mmol/L (3-11); BUN 17 mg/dL (7-18); CO2 34.5 mmol/L (21.0-32.0); CREATININE 0.95 mg/dL (0.55-1.02); Calcium 8.5 mg/dL (8.5-10.1); Chloride 104 mmol/L (98-107); Estimated GFR 59.41 (mL/min/1.73m2); Glucose 92 mg/dL (74-106); Potassium 4.4 mmol/L (3.5-5.1); Sodium 140 mmol/L (136-145)
[2020-08-12] MEDS: Furosemide 40 MG TAB PO (07:55)
[2020-08-12] MEDS: Sucralfate 1 GM TAB PO ×2 (07:55→11:43)
[2020-08-12] MEDS: amLODIPine 5 MG TAB PO (07:56)
[2020-08-12] MEDS: Ferrous Sulfate 325 MG TAB PO (07:56)
[2020-08-12] MEDS: Nadolol 40 MG TAB PO (07:56)
[2020-08-12] MEDS: Pantoprazole 40 MG TABCR PO (07:56)
[2020-08-12] MEDS: Rifaximin 550 MG TAB PO (07:56)
[2020-08-12] MEDS: Spironolactone 50 MG TAB PO (07:56)
[2020-08-12] MEDS: Zinc Sulfate 220 MG TAB PO (07:56)
[2020-08-12] MEDS: Pregabalin 100 MG CAP PO (07:56)
[2020-08-12] MEDS: Ascorbic Acid 500 MG TAB PO (07:56)
[2020-08-12] MEDS: Lactulose 20 GM/30 ML CUP 10 GM PO (07:56)
[2020-08-12 09:20] LABS: COVID-19 RT-PCR UVMMC Result Negative (Negative)
--- NOTE | 2020-08-12 09:20 | INITIAL_ITS ---
- If Service Date Differs Date of service: 08/12/20 Time of Service: 09:20 Care Management Initial Assess REASON FOR HOSPITALIZATION:: CHF PAST MEDICAL HISTORY/PAST SURGICAL HISTORY:: Medical History (Updated 08/11/20 @ 16:07 by Li Guerra NP). Abdominal pain, chronic, epigastric (03/23/16). Advance directive on file. Annual physical exam (02/22/18). Aortic stenosis, severe. Bacteremia due to group B Streptococcus. Bleeding esophageal varices (03/10/16). Breast mass. CAP (community acquired pneumonia). Carpal tunnel syndrome. right; s/p release. Cellulitis. Cervical disc disorder with myelopathy (09/04/12). Chronic epigastric pain (03/23/16). DVT prophylaxis. Edema, unspecified. 06/28/16 B/L. Elevation of level of transaminase and lactic acid dehydrogenase (LDH). Epistaxis. Esophageal varices with hemorrhage. Fever. Fever, unknown origin. 04/14/16. Fluid overload. Foot pain. GI bleed. Gram-positive bacteremia. Hepatic encephalopathy (03/10/16). Hyperlipidemia (09/04/12). Incisional hernia (01/15/15). Increased body mass index. Mild epistaxis. 12/21/15. Nausea. Pancytopenia. Physical deconditioning. Pneumonia. Portal hypertension. Sepsis. Sepsis syndrome. Thyroid nodule. right; 2008-[facility] [place]; 2.3cm nodule; neg. biopsy. Uninodular goiter. Tubular adenoma (04/12/13). Surgical History . Colonoscopy - IV Sedation (04/12/13). DR. Bhumika CLAYTON. Open Carpal Tunnel release. RIGHT. PROCEDURES. OTHER CERVICAL FUS ANT. discectomy. 2008 [facility] [place]; NEGATIVE THYROID BX. S/P carpal tunnel release. right. S/P cervical spinal fusion. anterior; discectomy. S/P cervical spinal fusion. anterior;discectomy. S/P tonsillectomy. Status post biopsy of thyroid gland. 09/18/08 neg. Status post carpal tunnel release. Status post cervical spinal arthrodesis. Status post tonsillectomy. Tonsillectomy PREVIOUS FUNCTIONAL STATUS/SOCIAL/FAMILY SUPPORTS:: Mayra resides in a single family home in [place] with her and daughter, Divya. She has three additional adult children all who are supportive. Mayra is not currently employed, she was previously independent with ADLs and activities, though over the last few monthes she has needed some assistance. CURRENT FUNCTIONAL STATUS:: Mayra was sitting up in bed when CM met with her. She described how she felt when she got home from her last hospital stay and what brought her back. She denies ever having been told that she has CHF and seemed very unclear about what it means and any dietary restrictions that should be observed. As she had already been discharged, CM gave her a copy of the Hearty Failure booklet and reviewed basic information. She was encouraged to read the book and call CM with questions. ADVANCE DIRECTIVES:: Germain VIEYRA Has patient been provided with info about the portal/API?: Yes Did the patient sign up for the portal?: No CODE STATUS:: Full Code INSURANCE COVERAGE / FINANCIAL ISSUES:: Medicare. BC/BS CURRENT HOME/COMMUNITY SERVICES/EQUIPMENT:: None currently PRIMARY CARE PHYSICIAN:: Ashley Miller POTENTIAL DISCHARGE NEEDS:: Follow up with cardiology, PCP and discharge plan PATIENT/FAMILY EDUCATION NEEDS:: Discharge plan, limitations, follow up plan, Education about CHF, Ask Me THree TRANSPORTATION:: via private vehicle with family PLAN:: Mayra will be discharged home with no new services. She will folllow up with her PCP and discharge plan. CM requested that an outpatient referral be made for nutritional counseling re: HF and Mayra was given the educational booklet on heart faolure by CM. Mayra will transport home with her daughter.
[2020-08-12] MEDS: Insulin Aspart 300 UNITS/3 ML PEN SC (11:42)
--- NOTE | 2020-08-12 11:47 | DSE_ITS ---
Date of service: 08/12/20 Time of Service: 11:47 DS: Diagnosis Discharge Diagnosis (1) Heart failure: Status: Acute (2) Cellulitis: Status: Acute (3) Essential hypertension: Status: Chronic (4) Diabetes mellitus: Status: Chronic (5) Cirrhosis: Status: Chronic Discharge Plan Disposition Patient Disposition: HOME Condition: Improving Discharge Details Reason For Visit: CHF Admit Date/Time: 08/11/20 12:32 Admit Provider: Cy Rich Attending Provider: Cy Rich Primary Care Provider: Malu Baron Hospital Course Hospital Course: presented to the ED with c/o shortness of breath after being home for one day following a brief hospitalization for cellulitis. she was discharged on augmentin and bactrim and had no evidence of osteomyelitis. she was unable to lie down to sleep that night and shortness of breath and bilateral lower extremity edema worsening so she returned to the ED. She was found in CHF and diuresed with resolution of her symptoms. she diuresed over 4 liters day one and an addition 2 liters after. She had no chest pain, elevated troponin at 0.09 which stayed flat and ekg with no acute ST segment changes. She was able to get an echocardiogram which reports: the left ventricle is normal size. The left ventricular systolic function is normal. The left ventricular ejection fraction is within the normal range. Mild concentric left ventricular hypertrophy. There is normal LV segmental wall motion. There is no ventricular septal defect visualized. LVEF is 55-60%, similar to prior echo in February 2020. She is oxygenating well on room air and with symptoms resolved. she will be discharged to home, instructed to increase lasix to 40 mg in am and 20 mg in pm for one week, repeat lab on Monday, Aug 17 then defer further dosing to pcp. covid was negative discussed with Dr Rich. Home Meds and New Rx's Prescriptions: Continued (DME) OneTouch Ultra Test strip 1 ea Miscellaneous QID Qty: 300 RF: 5 Xifaxan 550 mg tablet 550 mg PO BID Qty: 180 RF: 2 sucralfate 1 gram tablet 1 gm PO AC & HS Qty: 360 RF: 12 amlodipine 5 mg tablet 5 mg PO DAILY Qty: 90 RF: 5 oxycodone 5 mg tablet 5 mg PO BID MDD 3 PRN (Reason: pain) Qty: 15 RF: 0 ferrous sulfate [iron] 325 mg (65 mg iron) tablet 325 mg PO DAILY RF: 0 pantoprazole 40 mg tablet,delayed release (DR/EC) 40 mg PO DAILY Qty: 180 RF: 3 ammonium lactate 12 % lotion 1 applic topical BID RF: 0 zinc sulfate 220 MG capsule 220 mg PO DAILY Qty: 90 RF: 3 (DME) pen needle, diabetic [BD Ultra-Fine Orig Pen Needle] 1 EACH needle 1 ea Miscellaneous BID Qty: 180 RF: 3 pregabalin 100 mg capsule 100 mg PO TID Qty: 270 RF: 4 triamcinolone acetonide 0.1 % cream 1 applic TP QID Qty: 80 RF: 1 ondansetron HCl [Zofran] 4 mg tablet 4 mg PO DAILY PRN (Reason: nausea and vomiting) Qty: 90 RF: 3 fluocinonide 0.05 % ointment 1 applic TOPICAL DAILY RF: 0 mupirocin 2 % ointment 0 applic TOPICAL DAILY RF: 0 sulfamethoxazole-trimethoprim 800-160 mg Tablet 1 tab PO Q12H Qty: 28 RF: 0 ascorbic acid (vitamin C) [Vitamin C] 500 mg Tablet 500 mg PO DAILY Qty: 30 RF: 0 hydroxyzine HCl 25 mg Tablet 25 mg PO QID PRN PRNQty: 20 RF: 0 amoxicillin-pot clavulanate 875-125 mg Tablet 1 tab PO BID Qty: 28 RF: 0 Bio-K plus 50 billion cell Capsule,Delayed Release(Dr/Ec) 1 cap PO DAILY Qty: 30 RF: 0 lactulose 20 gram/30 mL Solution 10 g PO TID RF: 0 nadolol 40 mg tablet 40 mg PO DAILY Qty: 30 RF: 0 spironolactone 50 mg tablet 50 mg PO DAILY Qty: 30 RF: 0 Changed furosemide 20 mg tablet 60 mg PO DAILY Qty: 180 RF: 12 Discharge Instructions Instructions: Heart Failure (DC) Additional Instructions: increase lasix to 3 tabs daily for one week, you can take 2 in am and 1 in the afternoon, then as instructed by primary care provider have blood drawn next week to help guide dosing. weight yourself 3 times weekly and report weight at your follow up, report a 5 pound weight gain to primary care Stand Alone Forms: Nursing Discharge Form Referrals: Malu Baron MD, [place] [Primary Care Provider] - (Dr Baron will call you with appointment.) Activity:: Activity as Tolerated Equipment/Supplies:: No Equipment Needed Diet:: Low Sodium Discharge Orders Discharge Orders: Discharge Order (Routine); Ordered 08/12/20 Ordered By: Li Guerra Other Ambulatory Orders: Basic Metabolic Panel (Routine) Timeframe: 20200817 Location: None Selected Ordered By: Li Guerra DS: Summary Status at Discharge Functional status at discharge: independent ambulation Overall status at discharge: patient is progressing back to baseline Mental Status: mental status grossly normal Speech and Movement: speech and movement normal Mood: congruent mood Affect: normal affect Exam Const General: cooperative and in distress Orientation: alert, awake and oriented x3 HENMT Head: normal to inspection, normocephalic and atraumatic Face and sinus: normal facial exam Mouth: moist mucous membranes abnormal (Dry) Throat: posterior oropharynx normal Eyes General: appearance normal, both eyes and all related structures Conjunctivae: conjunctivae normal Sclera: sclerae normal Neck Neck: normal visual inspection, full ROM and supple Resp Effort & Inspection: normal respiratory effort and able to speak in complete sentences Auscultation: clear to auscultation bilaterally Cardio Jugular venous pressure: no JVD Rate: regular rate Rhythm: regular rhythm GI Inspection: normal to inspection Palpation: soft and nontender Back/Spine/Pelvis Back: No back tenderness Skin General skin exam: no rashes or lesions noted Neuro General: patient alert, patient awake, patient oriented x3, moves all extremities and no focal motor deficits Cognition: normal cognition Speech: speech normal Motor: muscle tone normal throughout Sensory Exam: no sensory deficits noted Extrem General: full ROM (trace edema, chronic discoloration bilateral lower) Psych Appearance: grossly normal Mental Status: mental status grossly normal Speech and Movement: speech and movement normal Mood: congruent mood Affect: normal affect DS: Data Vitals/I&O Vitals and I&O: Vital Signs Temperature 37.4 C 08/12/20 11:24 Temperature Source Temporal Artery Scan 08/12/20 11:24 Pulse 77 08/12/20 11:24 Pulse Rhythm Regular 08/12/20 08:00 Pulse 64 08/11/20 13:01 Respiratory Rate 18 08/12/20 11:24 Respiratory Effort Non-Labored 08/12/20 08:00 Respiratory Depth Normal 08/12/20 08:00 Respiratory Pattern Normal 08/12/20 08:00 Blood Pressure 125/66 08/12/20 11:24 Blood Pressure Mean 70 08/11/20 13:01 Blood Pressure Position Supine 08/11/20 08:21 Pulse Oximetry 91 L 08/12/20 11:24 Oxygen Delivery Method Room Air 08/12/20 11:24 Oxygen Flow Rate 0 08/12/20 11:24 Pain Level 0 08/12/20 11:24 Comment 08/11/20 13:20 Intake & Output 08/11/20 08/11/20 08/12/20 11:59 23:59 11:59 Intake Total 702.083 / 702.083 100 / 100 Output Total 700 / 4450 3750 / 4450 1350 / 1350 Balance -700 / -3747.917 -3047.917 / -3747.917 -1250 / -1250 Weight 115.1 kg Intake: IV 702.083 / 702.083 100 / 100 Output: Urine 700 / 4450 3750 / 4450 1350 / 1350 Other: Urine Color Pale Yellow Light Jenna Yellow Urine Appearance Clear Clear Clear Stool Size Large Stool Characteristics Liquid Brown # Voids 2 Data Completed and Pending Labs on day of discharge: Labs from last 24 hours 08/12/20 08/12/20 08/11/20 06:30 06:30 18:40 WBC 6.60 RBC 3.82 L Hgb 12.0 Hct 36.0 MCV 94.2 MCH 31.4 MCHC 33.3 RDW 14.9 H Plt Count 100 L MPV 9.9 Immature Gran % 0.3 Neutrophils % 57.0 Lymphocytes % 21.5 Monocytes % 10.0 Eosinophils % 9.1 Basophils % 2.1 Nucleated RBC % 0 Absolute Neutrophils 3.76 Absolute Lymphocytes 1.42 Absolute Monocytes 0.66 Absolute Eosinophils 0.60 Absolute Basophils 0.14 Sodium 140 Potassium 4.4 Chloride 104 Carbon Dioxide 34.5 H Anion Gap 1.5 L BUN 17 Creatinine 0.95 Estimated GFR/1.73 m2 59.41 Glucose 92 Calcium 8.5 Troponin I 0.08 H* COVID-19 PCR Nasopharyn COVID-19 PCR Ref Test Perform Site 08/11/20 08/11/20 11:40 08:50 WBC RBC Hgb Hct MCV MCH MCHC RDW Plt Count MPV Immature Gran % Neutrophils % Lymphocytes % Monocytes % Eosinophils % Basophils % Nucleated RBC % Absolute Neutrophils Absolute Lymphocytes Absolute Monocytes Absolute Eosinophils Absolute Basophils Sodium Potassium Chloride Carbon Dioxide Anion Gap BUN Creatinine Estimated GFR/1.73 m2 Glucose Calcium Troponin I 0.09 H* COVID-19 PCR Negative Nasopharyn COVID-19 PCR Not Applicable Ref Test Perform Site [facility] Preliminary micro results at discharge 08/11/20 09:30 Blood Culture - Preliminary Blood NO GROWTH 24 HOURS 08/11/20 08:32 Blood Culture - Preliminary Blood NO GROWTH 24 HOURS [facility] Medical History (Updated 08/11/20 @ 16:07 by Li Guerra NP) Abdominal pain, chronic, epigastric (03/23/16) Advance directive on file Annual physical exam (02/22/18) Aortic stenosis, severe Bacteremia due to group B Streptococcus Bleeding esophageal varices (03/10/16) Breast mass CAP (community acquired pneumonia) Carpal tunnel syndrome right; s/p release Cellulitis Cervical disc disorder with myelopathy (09/04/12) Chronic epigastric pain (03/23/16) DVT prophylaxis Edema, unspecified 06/28/16 B/L Elevation of level of transaminase and lactic acid dehydrogenase (LDH) Epistaxis Esophageal varices with hemorrhage Fever Fever, unknown origin 04/14/16 Fluid overload Foot pain GI bleed Gram-positive bacteremia Hepatic encephalopathy (03/10/16) Hyperlipidemia (09/04/12) Incisional hernia (01/15/15) Increased body mass index Mild epistaxis 12/21/15 Nausea Pancytopenia Physical deconditioning Pneumonia Portal hypertension Sepsis Sepsis syndrome Thyroid nodule right; 2008-[facility] [place]; 2.3cm nodule; neg. biopsy Uninodular goiter Tubular adenoma (04/12/13) Surgical History Colonoscopy - IV Sedation (04/12/13) DR. Bhumika CLAYTON Open Carpal Tunnel release RIGHT PROCEDURES OTHER CERVICAL FUS ANT discectomy [address] [facility] [place]; NEGATIVE THYROID BX S/P carpal tunnel release right S/P cervical spinal fusion anterior; discectomy S/P cervical spinal fusion anterior;discectomy S/P tonsillectomy Status post biopsy of thyroid gland 09/18/08 neg Status post carpal tunnel release Status post cervical spinal arthrodesis Status post tonsillectomy Tonsillectomy Family History Mother Pancreatic cancer Father Diabetes Essential hypertension Stroke Sister Heart disease Brother Bone cancer Liver cancer Maternal Grandfather No problems noted. Paternal Grandfather No problems noted. Maternal Grandmother , OLD AGE at age 89. No problems noted. Paternal Grandmother Breast cancer Sister Diabetes Colon cancer Rectal cancer Sister Diabetes Son No problems noted. Son No problems noted. Daughter No problems noted. Daughter Alcohol abuse Asthma Social History Smoking/Tobacco Use Status: Former Tobacco Use Tobacco: How many years used: 2 Second Hand Exposure: Yes Smoking risk assessment performed?: Yes Alcohol Intake: never Drug use: Never Counseling given: No Household members: spouse and children Housing: house Communication Needs: None Do you need help understanding health information?: Rarely Pets and animals: Yes Pets and animals: dog(s) Sexually active: No Do you think of yourself as: straight/heterosexual Current gender identity: female What is your relationship status?: How often do you talk on the phone with friends or family?: three or more times per week How often do you get together with friends or relatives?: once per week How often do you attend sikhism or voodoo services?: 1-3 times per year Do you belong to any clubs or organized social groups?: no Panel score (0-1 are the most socially isolated patients): 2 What type of physical activity do you participate in: decline to answer Duration: < 15 minutes/day Frequency: 1-2 times per week Lyubov/Mormon: Holiness Special lyubov needs: No Seatbelt use: always Helmet use: No Drive intox or ride w/intox front end driver: No Do you feel safe at home: Yes Do you feel safe in your relationship?: Yes
== END 2020-08-12 14:53 | disposition home or self-care (01) | DRG 292 ==
LOC: ER 12:42 → MS 13:21
PROVIDERS: Nurse Practitioner Acute Care; Admitting Provider Internal Medicine; Emergency Provider Physician Assistant; PCP Family Medicine; Visit Provider Internal Medicine
DX: I11.0 Hypertensive heart disease with heart failure (principal); L03.116 Cellulitis of left lower limb; D61.818 Other pancytopenia; K76.6 Portal hypertension; Z68.42 Body mass index [BMI] 45.0-49.9, adult; I50.9 Heart failure, unspecified; E11.9 Type 2 diabetes mellitus without complications; K74.69 Other cirrhosis of liver; I35.0 Nonrheumatic aortic (valve) stenosis; E78.5 Hyperlipidemia, unspecified; E66.9 Obesity, unspecified
CPT/HCPCS: 36415; 51702; 71275; 80048; 80053; 84145; 87040; 93005; 93306; 94618; 96361; 96374; 99223; 99239; 99291; U0003; 81003; 81015; 83605; 83735; 83880; 84484; 85025; 85610; 85730; 93010; J1644; J1940; J2543; J3490

== ENCOUNTER 2020-08-17 03:07 | Outpatient (CLI) | payer MEDICARE, BC, SELFPAY ==
[2020-08-17 12:26] LABS: HCT 35.9 % (36.0-46.0); HGB 12.2 g/dL (11.2-15.7); MCH 31.6 pg (27.0-33.0); MPV 9.9 fL (8.0-11.0); Platelet Count 123 10^3/uL (130-400); RBC 3.86 10^6/uL (3.93-5.22); RDW 14.8 % (11.7-14.6); RDW-SD 50.5 fL; WBC 7.45 10^3/uL (4.4-10.8)
[2020-08-17 12:47] LABS: ALT 56 U/L (14-59); AST 73 U/L (15-37); Albumin 2.4 g/dL (3.4-5.0); Alkaline Phosphatase 220 U/L (46-116); Anion Gap 3.8 mmol/L (3-11); BUN 18 mg/dL (7-18); Bilirubin, Total 2.4 mg/dL (0.2-1.0); C-Reactive Protein 3.14 mg/dL (0.0-0.3); CO2 30.2 mmol/L (21.0-32.0); CREATININE 0.94 mg/dL (0.55-1.02); Calcium 8.2 mg/dL (8.5-10.1); Chloride 101 mmol/L (98-107); Glucose 151 mg/dL (74-106); Potassium 4.3 mmol/L (3.5-5.1); Sodium 135 mmol/L (136-145)
[2020-08-17 13:34] LABS: ESR 28 mm/hr (0-30)
== END 2020-08-17 03:27 ==
PROVIDERS: PCP Family Medicine; Visit Provider Family Medicine
DX: I10 Essential (primary) hypertension (principal); I50.9 Heart failure, unspecified; E11.628 Type 2 diabetes mellitus with other skin complications; D50.9 Iron deficiency anemia, unspecified; K74.69 Other cirrhosis of liver; L03.116 Cellulitis of left lower limb
CPT/HCPCS: 36415; 80053; 85027; 85652; 86140

== ENCOUNTER 2021-01-03 06:57 | Inpatient (IN) | payer MEDICARE, BC, SELFPAY ==
[2021-01-03] VITALS (79 sets, daily range): BP systolic 77–171; BP diastolic 26–105; PULSE 82–123; RESP 11–34; TEMP 36–38.2; O2SAT 88–98
--- NOTE | 2021-01-03 07:00 | DI.RAD_ITS ---
EXAM: XR PORTABLE CHEST AP CLINICAL HISTORY: cough, fever, chills TECHNIQUE: COMPARISON: CR,XR XR PORTABLE CHEST AP from 08/07/[address] CHEST PE CTA from 08/11/2020 FINDINGS: The heart is enlarged. There is a question of subtle patchy pulmonary opacities seen bilaterally par ticularly in the perihilar areas. Possibility of acute infectious process is raised. Follow-up radi ographs or chest CT should be considered. IMPRESSION: RADIATION DOSE DELIVERED: Total DLP
--- NOTE | 2021-01-03 07:14 | ED.GENADUL_ITS ---
Discharge Plan Disposition [facility] Condition: Stable Discharge Details Clinical Impression: Fever, Bilateral cellulitis of lower leg, Pneumonia, Chronic acquired lymphedema Admit Date/Time: 01/03/21 11:07 Admit Provider: Cy Rich Attending Provider: Cy Rich Primary Care Provider: Malu Baron ED Provider: Lola Osuna Medical Decision Making <Kenny Trevizo DO - Last Filed: 01/03/21 07:20> This is a 65-year-old female with a past medical history of chronic lymphedema, aortic stenosis who presents today for evaluation of fever and chills. The patient states that she has been feeling fine for the last few days, and then woke up this morning with a cough, chills and weakness. She has gotten a single dose of the urine vaccine, but has not yet gotten a second. She denies any headache, chest pain, or neck pain. She denies any nausea vomiting or diarrhea. She denies any urinary symptoms. She does have chronic lymphedema and chronic wounds on her feet bilaterally for the last few years, but states that these are unchanged. She denies any recent long trips surgery or procedures. No other complaints. Exam demonstrates chronic lymphedema, chronic skin staining, patient is febrile and warm throughout. No focal warmth that I can appreciate on the legs to suggest unilateral cellulitis. There is chronic warts on the feet, dorsal aspect bilaterally but these appear unchanged. Lung sounds are surprisingly clear however out of concern the patient does have an oxygen around 91% with a good Plath. Concern for potential pneumonia. Covid and urinary infectious source are also in the differential. Acute on chronic infectious skin/cellulitis is also of concern. Previous echo in 2020 demonstrates a good ejection fraction at 50 to 60%. Patient is tachycardic and febrile. She meets criteria for Sirs sepsis. She shows no signs of hypotensive shock at this time. Will give broad-spectrum antibiotics of vancomycin and Zosyn, give a liter fluid bolus, evaluate for potential infectious sources monitor closely and reassess. Patient will be signed out to my colleague Dr. Lola Osuna for follow-up on labs and imaging. <Lola Osuna DO - Last Filed: 01/03/21 14:32> 0800 --please see Dr. Trevizo's note for initial presentation, exam and plan. Case endorsed to follow-up on labs and imaging with plan for admission for fever and potential sepsis with likely leg cellulitis as the source. Patient examined by me at bedside. She has a history of morbid obesity, diabetes, elephantitis presenting with chills and left leg pain this morning. She also admits to a dry cough and shortness of breath. She has had 1 dose of the Covid vaccine recently. Patient appears significantly fatigued and there is delay in obtaining answers to questions but she is oriented x3. Rectal temp 100.8. Oxygen saturation 90% on room air. She has a loud holosystolic murmur. She has significant lymphedema of her bilateral lower extremities and both feel warm to touch. She has skin breakdown with erythema and yellow drainage on the dressings on the dorsal aspect of her feet near her toes. No evidence of sacral or buttock wounds. Blood pressure initially on arrival 97/42 but report be staff was that this was an inaccurate reading and she has been actually more hypertensive. Most recent blood pressure 144/60. Heart rate 120s on arrival, has decreased to low 100s after 500 cc saline bolus. Will give an additional 500mL saline bolus. Will give a dose of Toradol for her low-grade temp. 0930 -- Labs reviewed. White blood cell count normal at 8. Lactate 1.8. Magnesium 1.6. Platelets 84, has been low in past. Urinalysis notes large amount of blood with negative leukocyte esterase and nitrite but unable to calculate white blood cells. Culture done as ordered. Chest x-ray notes mild opacities in the lungs especially represent atelectasis or pneumonia. Patient has already been given Vanco and Zosyn. This will cover for potentially leg cellulitis, UTI or pneumonia. We will add a troponin and EKG. Troponin negative. EKG notes a rate of 105, sinus with less than [address] depression in inferior and anterior leads. No STEMI. Discussed with case discussed with hospitalist who accepts patient for admission. Plan d/w pt's daughter Divya. Medical Records Medical records reviewed: Yes I reviewed the patient's medical records. Imaging Data Radiologic Study: Radiologist's impression: XR Chest Exam date and time: 01/03/2021 8:27 AM Age: 65 years old Clinical indication: Other: Cough, fever, chills TECHNIQUE: Imaging protocol: XR of the chest. Views: 1 view. COMPARISON: CR XR PORTABLE CHEST AP 08/07/2020 1:18 AM FINDINGS: Tubes, catheters and devices: Overlying EKG wires Lungs: Mild opacities in the lung bases may represent atelectasis or pneumonia.. Pleural spaces: Unremarkable. No pleural effusion. No pneumothorax. Heart/Mediastinum: Cardiomegaly Bones/joints: Anterior cervical fusion IMPRESSION: Mild opacities in the lung bases may represent atelectasis or pneumonia.. Lab Data Lab results reviewed: Yes I reviewed the patient's lab results. ECG Data Attestation: I personally reviewed and interpreted this ECG (s) as follows: Interpretation: rate of 105, sinus, less than 1mm ST depression in II, III, aVF, V3-4. No STEMI. MO 156. QRS 110. QTc 485. HPI <Kenny Trevizo DO - Last Filed: 01/03/21 07:20> General Date/Time Provider Initiated Documentation: 01/03/21 06:58 . HPI Narrative: This is a 65-year-old female with a past medical history of chronic lymphedema, aortic stenosis who presents today for evaluation of fever and chills. The patient states that she has been feeling fine for the last few days, and then woke up this morning with a cough, chills and weakness. She has gotten a single dose of the urine vaccine, but has not yet gotten a second. She denies any h eadache, chest pain, or neck pain. She denies any nausea vomiting or diarrhea. She denies any urinary symptoms. She does have chronic lymphedema and chronic wounds on her feet bilaterally for the last few years, but states that these are unchanged. She denies any recent long trips surgery or procedures. No other complaints. Related Data Home Medications Medication Instructions Recorded Confirmed zinc sulfate 220 mg PO DAILY #90 tab-cap 01/10/17 01/03/21 pen needle, diabetic [BD #180 12/18/17 01/03/21 Ultra-Fine Orig Pen Needle] ferrous sulfate 325 mg (65 mg 325 mg PO DAILY tab 06/11/18 01/03/21 iron) tablet blood sugar diagnostic #300 strip 09/13/18 01/03/21 nadolol 40 mg PO DAILY #30 tab 02/20/20 01/03/21 spironolactone 50 mg PO DAILY #30 tab 02/20/20 01/03/21 pantoprazole 40 mg tablet,delayed 40 mg PO DAILY #180 tab 03/02/20 01/03/21 release amlodipine 5 mg tablet 5 mg PO DAILY #90 tab 04/21/20 01/03/21 ammonium lactate 12 % lotion 1 applic TOPICAL BID 06/08/20 01/03/21 triamcinolone acetonide 0.1 % 1 applic TP QID #80 gm 07/12/20 01/03/21 topical cream ondansetron HCl 4 mg tablet 4 mg PO DAILY PRN #90 tab-cap 07/29/20 01/03/21 fluocinonide 1 applic TOPICAL DAILY 08/07/20 01/03/21 mupirocin 0 applic TOPICAL DAILY 08/07/20 01/03/21 Bio-K plus 1 cap PO DAILY #30 cap 08/10/20 01/03/21 ascorbic acid (vitamin C) [Vitamin 500 mg PO DAILY #30 tab 08/10/20 01/03/21 C] hydroxyzine HCl 25 mg PO QID PRN PRN #20 tab 08/10/20 01/03/21 rifaximin 550 mg tablet 550 mg PO BID #180 tab 10/05/20 01/03/21 sucralfate 1 gram tablet 1 g PO AC & HS #360 tab 10/05/20 01/03/21 lactulose 20 gram/30 mL oral 10 g PO TID #3000 ml 11/18/20 01/03/21 solution pregabalin 100 mg capsule 100 mg PO TID #270 cap 11/24/20 01/03/21 oxycodone 5 mg tablet 5 mg PO BID PRN #15 tab MDD 3 12/07/20 01/03/21 furosemide 60 mg PO DAILY 01/03/21 01/03/21 Previous Rx's Medication Instructions Recorded pen needle, diabetic [BD #180 12/18/17 Ultra-Fine Orig Pen Needle] blood sugar diagnostic #300 strip 09/13/18 nadolol 40 mg PO DAILY #30 tab 02/20/20 spironolactone 50 mg PO DAILY #30 tab 02/20/20 pantoprazole 40 mg tablet,delayed 40 mg PO DAILY #180 tab 03/02/20 release amlodipine 5 mg tablet 5 mg PO DAILY #90 tab 04/21/20 triamcinolone acetonide 0.1 % 1 applic TP QID #80 gm 07/12/20 topical cream ondansetron HCl 4 mg tablet 4 mg PO DAILY PRN #90 tab-cap 07/29/20 Bio-K plus 1 cap PO DAILY #30 cap 08/10/20 ascorbic acid (vitamin C) [Vitamin 500 mg PO DAILY #30 tab 08/10/20 C] hydroxyzine HCl 25 mg PO QID PRN PRN #20 tab 08/10/20 rifaximin 550 mg tablet 550 mg PO BID #180 tab 10/05/20 sucralfate 1 gram tablet 1 g PO AC & HS #360 tab 10/05/20 lactulose 20 gram/30 mL oral 10 g PO TID #3000 ml 11/18/20 solution pregabalin 100 mg capsule 100 mg PO TID #270 cap 11/24/20 oxycodone 5 mg tablet 5 mg PO BID PRN #15 tab MDD 3 12/07/20 Allergies Allergy/AdvReac Type Severity Reaction Status Date / Time gabapentin Allergy Intermediate Local Unverified 01/03/21 07:15 reaction on skin lisinopril AdvReac Itching Verified 01/03/21 07:15 General Stated Complaint: Fever JÚNIOR: 2 Review of Systems <Kenny Trevizo DO - Last Filed: 01/03/21 07:20> All systems reviewed & are unremarkable except as noted in HPI and below PFSH <Kenny Trevizo DO - Last Filed: 01/03/21 07:20> Medical History Abdominal pain, chronic, epigastric (03/23/16) Advance directive on file Annual physical exam (02/22/18) Aortic stenosis, severe Bacteremia due to group B Streptococcus Bleeding esophageal varices (03/10/16) Breast mass CAP (community acquired pneumonia) Carpal tunnel syndrome right; s/p release Cellulitis Cellulitis Cervical disc disorder with myelopathy (09/04/12) Chronic epigastric pain (03/23/16) Complicated UTI (urinary tract infection) Diabetic foot infection Discharge planning issues DVT prophylaxis DVT prophylaxis Edema, unspecified 06/28/16 B/L Elevation of level of transaminase and lactic acid dehydrogenase (LDH) Epistaxis Esophageal varices with hemorrhage Fever Fever, unknown origin 04/14/16 Fluid overload Foot pain GI bleed Gram-positive bacteremia Hepatic encephalopathy (03/10/16) Hyperlipidemia (09/04/12) Incisional hernia (01/15/15) Increased body mass index Mild epistaxis 12/21/15 Nausea Pancytopenia Physical deconditioning Pleural effusion Pneumonia Portal hypertension Sepsis Sepsis Sepsis syndrome Thyroid nodule right; 2008[facility] [place]; 2.3cm nodule; neg. biopsy Uninodular goiter Tubular adenoma (04/12/13) Surgical History Colonoscopy - IV Sedation (04/12/13) DR. Bhumika CLAYTON Open Carpal Tunnel release RIGHT PROCEDURES OTHER CERVICAL FUS ANT discectomy 2008 [facility] [place]; NEGATIVE THYROID BX S/P carpal tunnel release right S/P cervical spinal fusion anterior; discectomy S/P cervical spinal fusion anterior;discectomy S/P tonsillectomy Status post biopsy of thyroid gland 09/18/08 neg Status post carpal tunnel release Status post cervical spinal arthrodesis Status post tonsillectomy Tonsillectomy Family History Mother Pancreatic cancer Father Diabetes Essential hypertension Stroke Sister Heart disease Brother Bone cancer Liver cancer Maternal Grandfather No problems noted. Paternal Grandfather No problems noted. Maternal Grandmother , OLD AGE at age 89. No problems noted. Paternal Grandmother Breast cancer Sister Diabetes Colon cancer Rectal cancer Sister Diabetes Son No problems noted. Son No problems noted. Daughter No problems noted. Daughter Alcohol abuse Asthma Social History Smoking/Tobacco Use Status: Former Tobacco Use Tobacco: How many years used: 2 Second Hand Exposure: Yes Smoking risk assessment performed?: Yes Alcohol Intake: never Drug use: Never Counseling given: No Household members: spouse and children Housing: house Communication Needs: None Do you need help understanding health information?: Rarely Pets and animals: Yes Pets and animals: dog(s) Sexually active: No Do you think of yourself as: straight/heterosexual Current gender identity: female What is your relationship status?: How often do you talk on the phone with friends or family?: three or more times per week How often do you get together with friends or relatives?: once per week How often do you attend religious or confucianism services?: 1-3 times per year Do you belong to any clubs or organized social groups?: no Panel score (0-1 are the most socially isolated patients): 2 What type of physical activity do you participate in: decline to answer Duration: < 15 minutes/day Frequency: 1-2 times per week Lyubov/Buddhism: Protestant Special lyubov needs: No Seatbelt use: always Helmet use: No Drive intox or ride w/intox company tanker truck driver: No Do you feel safe at home: Yes Do you feel safe in your relationship?: Yes Exam <Kenny Trevizo DO - Last Filed: 01/03/21 07:20> Narrative Exam Narrative: 1.Const: Well-nourished, obese, well-developed, appearing stated age 2.Eyes: PERRL, no conjunctival injection, and symmetrical lids. 3.ENT: Atraumatic external nose and ears. Dry MM. Neck: Symmetric, trachea midline, No thyromegaly. No nuchal rigidity or meningeal signs. 4.CVS: +S1/S2, Peripheral pulses 2+ and equal in all extremities. Brisk capil logan refill in all extremities. 5.RESP: Unlabored respiratory effort. Clear to auscultation bilaterally. No wheezes rales or rhonchi 6.GI: Soft, Nontender/Nondistended, No hepatosplenomegaly. No guarding or rebound. 7.MSK: Normocephalic/Atraumatic, Extremities w/o deformity. No cyanosis or clubbing, Normal movement of all extremities. Chronic edema of the lower extremities, chronic venous insufficiency and associated hemosiderin staining. Legs are both warm, they do not appear unilaterally warm. Left thigh may be slightly more warm compared to the right, no clear evidence of redness. Mild induration and chronic edema of the skin traveling up the leg, knee and groin medially bilaterally. Patient's feet in the dorsal aspect demonstrate chronic skin breakdown lower bilaterally. There does not appear to be a clear acute component. 8.Skin: Warm, Dry. 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 Sensation grossly intact, no focal neurologic deficits. 10.Psych: (AAO) x3. Appropriate mood and affect Course <Kenny Trevizo DO - Last Filed: 01/03/21 07:20> Vital Signs Vital signs: Vital Signs Temperature 37.8 C H 01/03/21 07:08 Pulse 123 H 01/03/21 07:08 Respiratory Rate 34 H 01/03/21 07:08 Blood Pressure 97/42 L 01/03/21 07:08 Pulse Oximetry 92 01/03/21 07:08 Temperature 37.8 C H 01/03/21 07:08 Temperature Source Temporal Artery Scan 01/03/21 07:08 Pulse 123 H 01/03/21 07:08 Respiratory Rate 34 H 01/03/21 07:08 Blood Pressure 97/42 L 01/03/21 07:08 Blood Pressure Position Supine 01/03/21 07:08 Pulse Oximetry 92 01/03/21 07:08 Oxygen Delivery Method Room Air 01/03/21 07:08 Oxygen Flow Rate 0 01/03/21 07:08 Pain Level 8 01/03/21 07:08 Lab/Test Results Lab/Test Results: 01/03/21 07:10 Blood Blood Culture - Pending 01/03/21 07:10 Blood Blood Culture - Pending Sign Out <Kenny Trevizo DO - Last Filed: 01/03/21 07:20> Sign Out Data: Sign Out Comment: Febrile, tachycardic, concern for sepsis. Follow-up on labs, imaging. Vancomycin and Zosyn have been started. Has received single dose of Motrin vaccine Last updated by Kenny Trevizo DO at 01/03/21 07:23
[2021-01-03] MEDS: Normal Saline 1,000 ML 1000 ML IV (08:00)
[2021-01-03] MEDS: VANCOMYCIN/WATER (PEG) 2 GM/400 ML BAG IVPB (08:05)
[2021-01-03 08:07] LABS: Abs Immature Grans 0.03 10^3/uL (0.0-0.06); Absolute Basophil Count 0.08 10^3/uL (0.0-0.2); Absolute Eosinophil Count 0.16 10^3/uL (0.0-0.7); Absolute Lymphocyte Count 0.73 10^3/uL (1.2-3.4); Absolute Monocyte Count 0.32 10^3/uL (0.1-0.8); Absolute Neutrophil Count 6.91 10^3/uL (1.2-6.7); Eosinophils % 1.9; HCT 38.8 % (36.0-46.0); HGB 13.3 g/dL (11.2-15.7); Immature Grans % 0.4; Lymphocytes % 8.9; MCH 32.6 pg (27.0-33.0); MCHC 34.3 % (32.0-36.0); MCV 95.1 fL (80-95); MPV 9.8 fL (8.0-11.0); Monocytes % 3.9; Neutrophils % 83.9; Nucleated RBC 0 %; RBC 4.08 10^6/uL (3.93-5.22); RDW 13.8 % (11.7-14.6); RDW-SD 47.7 fL; WBC 8.23 10^3/uL (4.4-10.8)
[2021-01-03 08:09] LABS: Lactate 1.8 mmol/L (0.9-1.7)
[2021-01-03] MEDS: Normal Saline Flush 10 ML SYR IVP ×2 (08:13→17:37)
[2021-01-03] MEDS: ACETAMINOPHEN 1,000 MG/100 ML BTL 400 MG IVPB (08:15)
[2021-01-03 08:16] LABS: Bilirubin Small (Negative); Blood Large (Negative); Clarity Sl Cloudy (Clear); Glucose Negative (Negative); Ketones Negative (Negative); Leukocyte Esterase Negative (Negative); Nitrite Negative (Negative); Specific Gravity 1.025 (1.005-1.025); Urobilinogen 0.2 EU/dL (Up TO 0.2); pH 6.5 (5-8)
[2021-01-03 08:34] LABS: RBC >50 HPF (0-2)
[2021-01-03 08:35] LABS: C & S Indicated? C&S Done As Ordered
[2021-01-03 08:47] LABS: Diff Comment Diff Reviewed; Platelet Count 84 10^3/uL (130-400); RBC Morphology Normal
--- NOTE | 2021-01-03 08:53 | DI.VRAD_ITS ---
PROCEDURE INFORMATION: Exam: XR Chest Exam date and time: 01/03/2021 8:27 AM Age: 65 years old Clinical indication: Other: Cough, fever, chills TECHNIQUE: Imaging protocol: XR of the chest. Views: 1 view. COMPARISON: CR XR PORTABLE CHEST AP 08/07/2020 1:18 AM FINDINGS: Tubes, catheters and devices: Overlying EKG wires Lungs: Mild opacities in the lung bases may represent atelectasis or pneumonia.. Pleural spaces: Unremarkable. No pleural effusion. No pneumothorax. Heart/Mediastinum: Cardiomegaly Bones/joints: Anterior cervical fusion IMPRESSION: Mild opacities in the lung bases may represent atelectasis or pneumonia.. Dictated and Authenticated by: Eli Hill MD. Ordering:MYLA Cox MD
[2021-01-03 09:00] LABS: ALT 41 U/L (14-59); AST 63 U/L (15-37); Albumin 2.5 g/dL (3.4-5.0); Alkaline Phosphatase 225 U/L (46-116); Anion Gap 2.7 mmol/L (3-11); BUN 15 mg/dL (7-18); Bilirubin, Total 4.4 mg/dL (0.2-1.0); CO2 35.3 mmol/L (21.0-32.0); CREATININE 0.7 mg/dL (0.55-1.02); Chloride 105 mmol/L (98-107); Glucose 160 mg/dL (74-106); Magnesium 1.6 mg/dL (1.8-2.4); Potassium 3.7 mmol/L (3.5-5.1); Sodium 143 mmol/L (136-145); Total Protein 6.4 g/dL (6.4-8.2)
[2021-01-03] MEDS: PIPERACILLIN/TAZO 3.375 GM in Normal Saline 100 ML IVPB (09:07)
[2021-01-03] MEDS: Ketorolac 30 MG/ML VIAL IVP (09:08)
[2021-01-03 09:09] LABS: NT-proBNP 339 pg/mL (<300)
--- NOTE | 2021-01-03 09:15 | RT.EKG_ITS ---
APPROVED REPORT Exam: Resting ECG Patient Location: E HR:105 bpm ECG Measurements Heart Rate 105 AXIS NJ 156 P 79 QRSd 110 QRS 37 QT 367 T 41 QTc 485 Conclusion Sinus tachycardia...rate> 99 Atrial premature complexes...SV complexes w/ short R-R intvls Nonspecific repol abnormality, diffuse leads...ST dep, T flat/neg, ant/lat/inf. No STEMI. I have reviewed and interpreted ECG and agree with software generated interpretation.
[2021-01-03 09:43] LABS: Troponin I < 0.05 ng/mL (<0.06)
[2021-01-03 10:10] LABS: COVID-19 PCR Negative (Negative)
[2021-01-03 10:15] LABS: Procalcitonin 0.3 ng/mL
--- NOTE | 2021-01-03 11:00 | NUR.NOTE ---
Nursing Note: Divya daughter [phone]
[2021-01-03] MEDS: Normal Saline 1,000 ML 125 ML IV (11:40)
--- NOTE | 2021-01-03 12:27 | NUR.NOTE ---
compounding technician draws Troponin.Nursing Note:
[2021-01-03 12:53] LABS: Troponin I 0.13 ng/mL (<0.06)
--- NOTE | 2021-01-03 13:00 | RT.EKG_ITS ---
APPROVED REPORT Exam: Resting ECG Patient Location: I HR:86 bpm ECG Measurements Heart Rate 86 AXIS MD 148 P 70 QRSd 105 QRS 35 QT 401 T 25 QTc 481 Conclusion Sinus rhythm...normal P axis, V-rate 60- 99 Probable left atrial enlargement...P >50mS, <-0.10mV V1
[2021-01-03 13:02] LABS: C-Reactive Protein 2.49 mg/dL (0.0-0.3)
--- NOTE | 2021-01-03 13:18 | NUR.NOTE ---
EKG is taken.Nursing Note:
[2021-01-03] MEDS: Lactulose 20 GM/30 ML CUP 10 GM PO ×2 (13:29→20:01)
[2021-01-03] MEDS: MAGNESIUM SULFATE 4 GM/100 ML BAG IVPB (13:40)
--- NOTE | 2021-01-03 13:54 | NUR.NOTE ---
Daughter in to visit her mother.Nursing Note:
--- NOTE | 2021-01-03 14:44 | NUR.NOTE ---
RN speaks to patient's daughter about bringing in to ICU patient's home medication which is Fluocinonide to be applied to patient's bilateral lower extremities twice a day starting 01-04-2021 at 08:30. Daughter to retrieve said medication from home today.Nursing Note:
[2021-01-03 16:19] LABS: Troponin I 0.12 ng/mL (<0.06)
--- NOTE | 2021-01-03 16:40 | HPE_ITS ---
Date of service: 01/03/21 Time of Service: 14:30 Assessment and Plan Assessment and plan (1) Fever: Start date: 01/03/21 Start time: 17:16 Status: Acute Assessment and plan: Presents to ED with fever, chills nausea. No leukocytosis Questionable source of cellulitis vs. pneumonia vs. UTI Blood cultures pending. On zosyn and vanco (2) Bilateral cellulitis of lower leg: Start date: 01/03/21 Start time: 17:18 Status: Acute Assessment and plan: Marginal. Slight erythema small openings to left foot. Elephantiasis. Refusing podiatry as above (3) Pneumonia: Start date: 01/03/21 Start time: 17:19 Status: Acute Assessment and plan: questionable pneumonia CRP 2.49 Procal 0.3 lactate 1.8 Received 500 ml bolus in ED. Was on 125 ml IVF however she was becoming volume overloaded ivf dcd lasix 80 IVP given as she was c/o LLE thigh edema that was tight Continue lasix po and increase spironolactone (4) Pulmonary edema: Start date: 01/03/21 Start time: 17:23 Status: Acute Assessment and plan: volume overloaded as above given lasix IV IVF dcd (5) Hypoxia: Start date: 01/03/21 Start time: 17:23 Status: Acute Assessment and plan: Requiring oxygen due to above. Will wean off, does not appear toxic (6) Chronic acquired lymphedema: Start date: 01/03/21 Start time: 17:23 Status: Acute Assessment and plan: Will have PT work with her Elevate legs when able to would benefit from lymphedema wraps (7) Elephantiasis nostra verrucosa: Start date: 01/03/21 Start time: 17:24 Status: Acute Assessment and plan: as above (8) Diabetes mellitus: Start date: 01/03/21 Start time: 17:24 Status: Chronic Assessment and plan: SSI Fingersticks Glucose by labs 160. Continue to monitor. Carb controlled diet Qualifiers: Diabetes mellitus type: type 2 Diabetes mellitus mcc insulin use: without long term care pharmacist use Diabetes mellitus complication status: without complication Qualified Code(s): E11.9 - Type 2 diabetes mellitus without complications (9) Cirrhosis: Start date: 01/03/21 Start time: 17:25 Status: Chronic Assessment and plan: Jaundice with Icterus check ammonia level in am continue rifaximin, lasix, and spironolactone Qualifiers: Hepatic cirrhosis type: other cirrhosis Qualified Code(s): K74.69 - Other cirrhosis of liver (10) Elevated troponin: Start date: 01/03/21 Start time: 17:28 Status: Acute Assessment and plan: Trending out her troponins these are baseline. She has had elevated trops at 0.12 up to 0.14 since 2019, likely due to CKD with cirrohsis. (11) DVT prophylaxis: Start date: 01/03/21 Start time: 17:30 Status: Acute Assessment and plan: Due to urinary bleeding, varical bleeding, will use SCD for anticoagulants, hold all chemical. will also hem stools above case discussed with Dr. Rich History of Present Illness History of Present Illness Chief Complaint: Cellulitis, Narrative: This is a 65 yo female with a PMH of BLE elephantiasis, DM, cirrhosis, aortic stenosis, recurrent cirrhosis, recurrent cellulitis. She presented to the ED after experiencing a fever and chills at home with nausea and vomiting. She also endorsed left leg and foot pain. C/o dry cough no sputum, no dysuria but bloody urine. No known COVID-19 exposure. COVID negative Her WBC count was normal. venous lactate slightly elevated at 1.8. CXR The heart is enlarged. There is a question of subtle patchy pulmonary opacities seen bilaterally particularly in the perihilar areas. Possibility of acute infectious process is raised. Also noted, mild alveolar density in the R base and perihilar interstitial promincence; pulmonary edema vs PNA. She was given 500 ml bolus in Ed and initiated on vanco and zosyn. Urine with large amount of blood no nitrates or leuk est. She was asked to be admitted by hospitalist for further management. Patient admitted to m/s in ICU overflow. placed on teley. She does not appear dry. She has edema to lower bilateral extremities left worse then right. ED ordered IVF, dc IVF lasxi 80 mg IVP and resume diuretics. She is on vanco and zosyn though her cellulitis does not appear to be that bad a couple of open areas to her toes on the left foot. Wound consult placed. CRP was 2.49. Trops were elevated but this appears to be normal for her and she is baseline likely secondary to CKD and cirrhosis. Due to bleeding, hx of esophageal varices will use scds for anticogaulation. Blood cultures pending. Urine cx pending. Ammonia level and labs for am. She denies SOB, N/V/D. Tolerating diet. Review of Systems All systems reviewed & are unremarkable except as noted in HPI and below PFSH Medical History Abdominal pain, chronic, epigastric (03/23/16) Advance directive on file Annual physical exam (02/22/18) Aortic stenosis, severe Bacteremia due to group B Streptococcus Bleeding esophageal varices (03/10/16) Breast mass CAP (community acquired pneumonia) Carpal tunnel syndrome right; s/p release Cellulitis Cellulitis Cervical disc disorder with myelopathy (09/04/12) Chronic epigastric pain (03/23/16) Complicated UTI (urinary tract infection) Diabetic foot infection Discharge planning issues DVT prophylaxis DVT prophylaxis Edema, unspecified 06/28/16 B/L Elevation of level of transaminase and lactic acid dehydrogenase (LDH) Epistaxis Esophageal varices with hemorrhage Fever Fever, unknown origin 04/14/16 Fluid overload Foot pain GI bleed Gram-positive bacteremia Hepatic encephalopathy (03/10/16) Hyperlipidemia (09/04/12) Incisional hernia (01/15/15) Increased body mass index Mild epistaxis 12/21/15 Nausea Pancytopenia Physical deconditioning Pleural effusion Pneumonia Portal hypertension Sepsis Sepsis Sepsis syndrome Thyroid nodule right; 2008-[facility] [place]; 2.3cm nodule; neg. biopsy Uninodular goiter Tubular adenoma (04/12/13) Surgical History Colonoscopy - IV Sedation (04/12/13) DR. Bhumika CLAYTON Open Carpal Tunnel release RIGHT PROCEDURES OTHER CERVICAL FUS ANT discectomy [address] [facility] [place]; NEGATIVE THYROID BX S/P carpal tunnel release right S/P cervical spinal fusion anterior; discectomy S/P cervical spinal fusion anterior;discectomy S/P tonsillectomy Status post biopsy of thyroid gland 09/18/08 neg Status post carpal tunnel release Status post cervical spinal arthrodesis Status post tonsillectomy Tonsillectomy Family History Mother Pancreatic cancer Father Diabetes Essential hypertension Stroke Sister Heart disease Brother Bone cancer Liver cancer Maternal Grandfather No problems noted. Paternal Grandfather No problems noted. Maternal Grandmother , OLD AGE at age 89. No problems noted. Paternal Grandmother Breast cancer Sister Diabetes Colon cancer Rectal cancer Sister Diabetes Son No problems noted. Son No problems noted. Daughter No problems noted. Daughter Alcohol abuse Asthma Social History Smoking/Tobacco Use Status: Former Tobacco Use Tobacco: How many years used: 2 Second Hand Exposure: Yes Smoking risk assessment performed?: Yes Alcohol Intake: never Drug use: Never Counseling given: No Household members: spouse and children Housing: house Communication Needs: None Do you need help understanding health information?: Rarely Pets and animals: Yes Pets and animals: dog(s) Sexually active: No Do you think of yourself as: straight/heterosexual Current gender identity: female What is your relationship status?: How often do you talk on the phone with friends or family?: three or more times per week How often do you get together with friends or relatives?: once per week How often do you attend methodist or shinto services?: 1-3 times per year Do you belong to any clubs or organized social groups?: no Panel score (0-1 are the most socially isolated patients): 2 What type of physical activity do you participate in: decline to answer Duration: < 15 minutes/day Frequency: 1-2 times per week Lyubov/Zoroastrian: Bahai Special lyubov needs: No Seatbelt use: always Helmet use: No Drive intox or ride w/intox fuel oil truck driver: No Do you feel safe at home: Yes Do you feel safe in your relationship?: Yes Meds Allergies and Home Medications Allergies Allergy/AdvReac Type Severity Reaction Status Date / Time gabapentin Allergy Intermediate Local Unverified 01/03/21 07:15 reaction on skin lisinopril AdvReac Itching Verified 01/03/21 07:15 Home Medications Medication Instructions Recorded Confirmed Type zinc sulfate 220 mg PO DAILY #90 tab-cap 01/10/17 01/03/21 History pen needle, diabetic [BD #180 12/18/17 01/03/21 Rx Ultra-Fine Orig Pen Needle] ferrous sulfate 325 mg (65 mg 325 mg PO DAILY tab 06/11/18 01/03/21 History iron) tablet blood sugar diagnostic #300 strip 09/13/18 01/03/21 Rx nadolol 40 mg PO DAILY #30 tab 02/20/20 01/03/21 Rx spironolactone 50 mg PO DAILY #30 tab 02/20/20 01/03/21 Rx pantoprazole 40 mg tablet,delayed 40 mg PO DAILY #180 tab 03/02/20 01/03/21 Rx release amlodipine 5 mg tablet 5 mg PO DAILY #90 tab 04/21/20 01/03/21 Rx ammonium lactate 12 % lotion 1 applic TOPICAL BID 06/08/20 01/03/21 History triamcinolone acetonide 0.1 % 1 applic TP QID #80 gm 07/12/20 01/03/21 Rx topical cream ondansetron HCl 4 mg tablet 4 mg PO DAILY PRN #90 tab-cap 07/29/20 01/03/21 Rx fluocinonide 1 applic TOPICAL DAILY 08/07/20 01/03/21 History mupirocin 0 applic TOPICAL DAILY 08/07/20 01/03/21 History Bio-K plus 1 cap PO DAILY #30 cap 08/10/20 01/03/21 Rx ascorbic acid (vitamin C) [Vitamin 500 mg PO DAILY #30 tab 08/10/20 01/03/21 Rx C] hydroxyzine HCl 25 mg PO QID PRN PRN #20 tab 08/10/20 01/03/21 Rx rifaximin 550 mg tablet 550 mg PO BID #180 tab 10/05/20 01/03/21 Rx sucralfate 1 gram tablet 1 g PO AC & HS #360 tab 10/05/20 01/03/21 Rx lactulose 20 gram/30 mL oral 10 g PO TID #3000 ml 11/18/20 01/03/21 Rx solution pregabalin 100 mg capsule 100 mg PO TID #270 cap 11/24/20 01/03/21 Rx oxycodone 5 mg tablet 5 mg PO BID PRN #15 tab MDD 3 12/07/20 01/03/21 Rx furosemide 60 mg PO DAILY 01/03/21 01/03/21 History Exam Narrative Exam Narrative: Const: Well-nourished, obese, well-developed, appearing stated age, Sitting up in bed Eyes: PERRL, EOMI. Icteric, ENT: Atraumatic. Neck: Symmetric, trachea midline, MMM Cardio: Murmur 3/6 systolic, Regular rate and rhythm .RESP: Unlabored respiratory effort. Bilateral fine crackles. requiring oxygen .GI: Soft, Nontender/Nondistended, No hepatosplenomegaly. No guarding or rebound. BS x 4 Skin: Normocephalic/Atraumatic: Bilateral feet with atrophy from chronic elephantiasis. No cyanosis or clubbing, Normal movement of all extremities. Chronic edema of the lower extremities, chronic venous insufficiency and associated hemosiderin staining. Legs are both warm, Left thigh may be slightly more warm edematous then the right, thight with pain no clear evidence of redness. Mild induration and chronic edema of the skin traveling up the toes Patient's feet in the dorsal aspect demonstrate chronic skin breakdown lower bilaterally. There does not appear to be a clear acute component. Jaundice Back/Spine: no kyphosis, no cva tenderness Neuro: cracker dough mixer II-XII grossly intact. Sensation grossly intact, no focal neurologic deficits. Psych: (AAO) x3. Appropriate mood and affect Results Labs Result diagrams: 01/03/21 07:52 01/03/21 07:52 Labs: Laboratory Results - last 24 hr 01/03/21 01/03/21 01/03/21 07:20 07:20 07:23 WBC RBC Hgb Hct MCV MCH MCHC RDW Plt Count MPV Immature Gran % Neutrophils % Lymphocytes % Monocytes % Eosinophils % Basophils % Nucleated RBC % Absolute Neutrophils Absolute Lymphocytes Absolute Monocytes Absolute Eosinophils Absolute Basophils RBC Morphology VBG Lactate Sodium Potassium Chloride Carbon Dioxide Anion Gap BUN Creatinine Estimated GFR/1.73 m2 Glucose Calcium Magnesium Total Bilirubin AST ALT Alkaline Phosphatase Troponin I < 0.05 C-Reactive Protein NT-Pro-B Natriuret Pep Total Protein Albumin Procalcitonin 0.3 Urine Color Urine Clarity Urine pH Ur Specific [place] Urine Protein Urine Ketones Urine Blood Urine Nitrite Urine Bilirubin Urine Urobilinogen Ur Leukocyte Esterase Urine RBC Urine WBC Ur Epithelial Cells Urine Crystals Urine Bacteria Urine Mucus Ur Culture Indicated? Urine Glucose COVID-19 Source Nasopharyx SARS-CoV-2 (PCR) Negative 01/03/21 01/03/21 01/03/21 07:52 07:52 07:52 WBC 8.23 RBC 4.08 Hgb 13.3 Hct 38.8 MCV 95.1 H MCH 32.6 MCHC 34.3 RDW 13.8 Plt Count 84 L MPV 9.8 Immature Gran % 0.4 Neutrophils % 83.9 Lymphocytes % 8.9 Monocytes % 3.9 Eosinophils % 1.9 Basophils % 1.0 Nucleated RBC % 0 Absolute Neutrophils 6.91 H Absolute Lymphocytes 0.73 L Absolute Monocytes 0.32 Absolute Eosinophils 0.16 Absolute Basophils 0.08 RBC Morphology Normal VBG Lactate 1.8 H Sodium 143 Potassium 3.7 Chloride 105 Carbon Dioxide 35.3 H Anion Gap 2.7 L BUN 15 Creatinine 0.7 Estimated GFR/1.73 m2 >= 60.00 Glucose 160 H Calcium 9.0 Magnesium 1.6 L Total Bilirubin 4.4 H AST 63 H ALT 41 Alkaline Phosphatase 225 H Troponin I C-Reactive Protein NT-Pro-B Natriuret Pep Total Protein 6.4 Albumin 2.5 L Procalcitonin Urine Color Urine Clarity Urine pH Ur Specific [place] Urine Protein Urine Ketones Urine Blood Urine Nitrite Urine Bilirubin Urine Urobilinogen Ur Leukocyte Esterase Urine RBC Urine WBC Ur Epithelial Cells Urine Crystals Urine Bacteria Urine Mucus Ur Culture Indicated? Urine Glucose COVID-19 Source SARS-CoV-2 (PCR) 01/03/21 01/03/21 01/03/21 07:52 08:07 12:25 WBC RBC Hgb Hct MCV MCH MCHC RDW Plt Count MPV Immature Gran % Neutrophils % Lymphocytes % Monocytes % Eosinophils % Basophils % Nucleated RBC % Absolute Neutrophils Absolute Lymphocytes Absolute Monocytes Absolute Eosinophils Absolute Basophils RBC Morphology VBG Lactate Sodium Potassium Chloride Carbon Dioxide Anion Gap BUN Creatinine Estimated GFR/1.73 m2 Glucose Calcium Magnesium Total Bilirubin AST ALT Alkaline Phosphatase Troponin I 0.13 H* C-Reactive Protein 2.49 H NT-Pro-B Natriuret Pep 339 H Total Protein Albumin Procalcitonin Urine Color Yellow Urine Clarity Sl cloudy Urine pH 6.5 Ur Specific [place] 1.025 Urine Protein 100 H Urine Ketones Negative Urine Blood Large H Urine Nitrite Negative Urine Bilirubin Small H Urine Urobilinogen 0.2 Ur Leukocyte Esterase Negative Urine RBC >50 H Urine WBC Ur Epithelial Cells Not Applicable Urine Crystals Not Applicable Urine Bacteria Not Applicable Urine Mucus Not Applicable Ur Culture Indicated? C&s done as ordered Urine Glucose Negative COVID-19 Source SARS-CoV-2 (PCR) 01/03/21 15:52 WBC RBC Hgb Hct MCV MCH MCHC RDW Plt Count MPV Immature Gran % Neutrophils % Lymphocytes % Monocytes % Eosinophils % Basophils % Nucleated RBC % Absolute Neutrophils Absolute Lymphocytes Absolute Monocytes Absolute Eosinophils Absolute Basophils RBC Morphology VBG Lactate Sodium Potassium Chloride Carbon Dioxide Anion Gap BUN Creatinine Estimated GFR/1.73 m2 Glucose Calcium Magnesium Total Bilirubin AST ALT Alkaline Phosphatase Troponin I 0.12 H* C-Reactive Protein NT-Pro-B Natriuret Pep Total Protein Albumin Procalcitonin Urine Color Urine Clarity Urine pH Ur Specific [place] Urine Protein Urine Ketones Urine Blood Urine Nitrite Urine Bilirubin Urine Urobilinogen Ur Leukocyte Esterase Urine RBC Urine WBC Ur Epithelial Cells Urine Crystals Urine Bacteria Urine Mucus Ur Culture Indicated? Urine Glucose COVID-19 Source SARS-CoV-2 (PCR) Last Vital Signs Temp 36.8 C 01/03/21 13:34 Pulse 92 H 01/03/21 13:34 Resp 17 01/03/21 13:34 BP 123/56 L 01/03/21 13:34 Pulse Ox 95 01/03/21 13:34 COVID-19 Screening Have you, or household traveled for leisure in last 14 days?: No Had IN PERSON contact w/suspected or confirmed C-19 person: No
[2021-01-03] MEDS: Furosemide 100 MG/10 ML VIAL 80 MG IVP (17:08)
[2021-01-03] MEDS: Spironolactone 50 MG TAB 100 MG PO (17:10)
[2021-01-03] MEDS: Sucralfate 1 GM TAB PO ×2 (17:10→20:13)
[2021-01-03] MEDS: Triamcinolone 0.1% CR 15 GM TUBE TP ×2 (17:35→20:01)
[2021-01-03] MEDS: Insulin Aspart 300 UNITS/3 ML PEN SC (18:36)
[2021-01-03] MEDS: Lachydrin 12% LOTION 225 GM BTL TP (20:01)
[2021-01-03] MEDS: Rifaximin 550 MG TAB PO (20:01)
[2021-01-03] MEDS: PIPERACILLIN/TAZO 3.375 GM in Normal Saline 50 ML IVPB (23:52)
[2021-01-04] VITALS (24 sets, daily range): BP systolic 112–135; BP diastolic 42–84; PULSE 75–103; RESP 17–28; TEMP 37–37.1; O2SAT 92–97
--- NOTE | 2021-01-04 | DI.US_ITS ---
EXAM: US LOWER EXTREMITY VENOUS LT CLINICAL HISTORY: pain and edema to thigh TECHNIQUE: Grayscale, color, and doppler imaging of the deep venous system of the left lower extremi ty was performed. COMPARISON: None FINDINGS: This study is negative for DVT although the distal femoral vein within Kings's canal is difficult to see due to thigh edema. However, this study is positive for thrombosis within the ipsilateral left greater saphenous vein ext ending up from the knee to within 1.7 cm from the junction of the greater saphenous vein and common f emoral vein. This finding does place this patient at risk for pulmonary emboli. IMPRESSION: 1. Positive study. Although there is no evidence of true DVT, there is significant thrombosis of th e left greater saphenous vein as described above, extending from the level the knee up to the upper t high just short of the saphenofemoral junction (1.7 cm). This finding places patient risk for pulmon denise emboli. 2. No abnormal fluid collections evident. DATA REPOSITORY:
[2021-01-04] MEDS: PIPERACILLIN/TAZO 3.375 GM in Normal Saline 50 ML IVPB ×3 (05:30→17:56)
[2021-01-04 06:42] LABS: Abs Immature Grans 0.02 10^3/uL (0.0-0.06); Absolute Basophil Count 0.08 10^3/uL (0.0-0.2); Absolute Lymphocyte Count 0.91 10^3/uL (1.2-3.4); Absolute Monocyte Count 0.62 10^3/uL (0.1-0.8); Absolute Neutrophil Count 7.32 10^3/uL (1.2-6.7); Basophils % 0.9; Eosinophils % 3.2; HCT 34.5 % (36.0-46.0); HGB 11.7 g/dL (11.2-15.7); Immature Grans % 0.2; Lymphocytes % 9.8; MCH 32.7 pg (27.0-33.0); MCHC 33.9 % (32.0-36.0); MCV 96.4 fL (80-95); MPV 10.3 fL (8.0-11.0); Monocytes % 6.7; Neutrophils % 79.2; Nucleated RBC 0 %; RBC 3.58 10^6/uL (3.93-5.22); RDW 13.9 % (11.7-14.6); RDW-SD 49.5 fL; WBC 9.25 10^3/uL (4.4-10.8)
[2021-01-04 06:45] LABS: Ammonia 58 umol/L (11-32)
[2021-01-04 06:50] LABS: Anion Gap 1.7 mmol/L (3-11); BUN 23 mg/dL (7-18); CO2 32.3 mmol/L (21.0-32.0); Calcium 8.1 mg/dL (8.5-10.1); Chloride 108 mmol/L (98-107); Glucose 143 mg/dL (74-106); Magnesium 1.9 mg/dL (1.8-2.4); Potassium 3.5 mmol/L (3.5-5.1); Sodium 142 mmol/L (136-145)
[2021-01-04 07:04] LABS: Platelet Count 81 10^3/uL (130-400)
[2021-01-04 07:05] LABS: Diff Comment PLT Morph Reviewed; RBC Morphology Normal
[2021-01-04] MEDS: Lactulose 20 GM/30 ML CUP 10 GM PO ×3 (08:38→19:39)
[2021-01-04] MEDS: Rifaximin 550 MG TAB PO ×2 (08:39→19:39)
[2021-01-04] MEDS: Ascorbic Acid 500 MG TAB PO (08:40)
[2021-01-04] MEDS: Spironolactone 50 MG TAB 100 MG PO (08:40)
[2021-01-04] MEDS: Pantoprazole 40 MG TABCR PO (08:40)
[2021-01-04] MEDS: Ferrous Sulfate 325 MG TAB PO (08:40)
[2021-01-04] MEDS: Sucralfate 1 GM TAB PO ×3 (08:40→17:08)
[2021-01-04] MEDS: amLODIPine 5 MG TAB PO (08:41)
[2021-01-04] MEDS: Furosemide 20 MG TAB 60 MG PO (08:41)
--- NOTE | 2021-01-04 09:46 | PDOC.CMIN ---
- If Service Date Differs Date of service: 01/04/21 Time of Service: 09:50 Care Management Initial Assess REASON FOR HOSPITALIZATION:: Fever, Leg Cellulitis, Pneumonia, UTI PAST MEDICAL HISTORY/PAST SURGICAL HISTORY:: Abdominal pain, chronic, epigastric (03/23/16). Advance directive on file. Annual physical exam (02/22/18). Aortic stenosis, severe. Bacteremia due to group B Streptococcus. Bleeding esophageal varices (03/10/16). Breast mass. CAP (community acquired pneumonia). Carpal tunnel syndrome. right; s/p release. Cellulitis. Cellulitis. Cervical disc disorder with myelopathy (09/04/12). Chronic epigastric pain (03/23/16). Complicated UTI (urinary tract infection). Diabetic foot infection. Discharge planning issues. DVT prophylaxis. DVT prophylaxis. Edema, unspecified. 06/28/16 B/L. Elevation of level of transaminase and lactic acid dehydrogenase (LDH). Epistaxis. Esophageal varices with hemorrhage. Fever. Fever, unknown origin. 04/14/16. Fluid overload. Foot pain. GI bleed. Gram-positive bacteremia. Hepatic encephalopathy (03/10/16). Hyperlipidemia (09/04/12). Incisional hernia (01/15/15). Increased body mass index. Mild epistaxis. 12/21/15. Nausea. Pancytopenia. Physical deconditioning. Pleural effusion. Pneumonia. Portal hypertension. Sepsis. Sepsis. Sepsis syndrome. Thyroid nodule. right[place] [place] 2.3cm nod[place]; neg. biopsy. Uninodular goiter. Tubular adenoma (04/12/13). Colonoscopy - IV Sedation (04/12/13). DR. Bhumika CLAYTON. Open Carpal Tunnel release. RIGHT. PROCEDURES. OTHER CERVICAL FUS ANT. discectomy. [place] [facility] [place] NEGATIVE THYROID BX. S/P carpal tunnel release. right. S/P cervical spinal fusion. anterior; discectomy. S/P cervical spinal fusion. anterior;discectomy. S/P tonsillectomy. Status post biopsy of thyroid gland. 09/18/08 neg. Status post carpal tunnel release. Status post cervical spinal arthrodesis. Status post tonsillectomy. Tonsillectomy PREVIOUS FUNCTIONAL STATUS/SOCIAL/FAMILY SUPPORTS:: Mayra resides in a single family home in [place] with her and daughter, Divya. She has three additional adult children all who are supportive. Mayra is not currently employed, she was previously independent with ADLs and activities, though over the last few monthes she has needed some assistance. CURRENT FUNCTIONAL STATUS:: Kristyn will be transferred [place] [facility] MD. ADVANCE DIRECTIVES:: Germain Calle [facility] Has patient been provided with info about the portal/API?: Yes Did the patient sign up for the portal?: No CODE STATUS:: Full Code INSURANCE COVERAGE / FINANCIAL ISSUES:: Medicare. BC/BS CURRENT HOME/COMMUNITY SERVICES/EQUIPMENT:: None currently PRIMARY CARE PHYSICIAN:: Ashley Miller POTENTIAL DISCHARGE NEEDS:: Follow up with cardiology, PCP and discharge plan PATIENT/FAMILY EDUCATION NEEDS:: Discharge plan, limitations, follow up plan, education about CHF, Ask Me Three ANTICIPATED BARRIERS TO DISCHARGE:: None identified. TRANSPORTATION:: via private vehicle with family PLAN:: Mayra will transfer [place] [facility].
--- NOTE | 2021-01-04 09:47 | DI.US_ITS ---
APPROVED REPORT EXAM: Comprehensive 2D, Doppler, and color-flow Echocardiogram Patient Location: In-Patient Room/Bed: [id number] Last Dipper: Pricila Hahn RDCS (AE) Indications: Elevated troponin Other Information Study Quality: Fair. Technically limited study due to body habitus, inability to position patient. Conclusion Mild concentric left ventricular hypertrophy. Estimated ejection fraction is 55%. There are no segm ental wall motion abnormalities Normal right ventricular size and systolic function Borderline dilated left atrium. Right atrium is normal in size The aortic valve is sclerotic, probably trileaflet. There is severe aortic stenosis with a peak grad ient of 67, mean of 44 mmHg and a calculated aortic area of 0.9 cm??. There is no aortic regurgitati on Moderate mitral annular calcification with mild regurgitation Normal tricuspid valve with trace to mild regurgitation. Estimated right ventricular systolic pressu re is 44 mmHg Wall motion Left Ventricle The left ventricle is normal size. The left ventricular systolic function is normal. The left ventric ular ejection fraction is within the normal range. Mild concentric left ventricular hypertrophy. Ther e is normal LV segmental wall motion. There is no ventricular septal defect visualized. LVEF is 55%. Right Ventricle The right ventricle is normal size. The right ventricular systolic function is normal. The RVSP is 44 .2mmHg. Atria Left atrium is borderline dilated. The right atrium size is normal. The interatrial septum is intact with no evidence for an atrial septal defect. Aortic Valve Aortic valve is calcified. Aortic valve is probably trileaflet. Severe aortic stenosis. Peak aortic v alve gradient is 67.3mmHg. Highest mean aortic valve gradient is 44.1mmHg. Calculated AKIRA by the cont inuity equation is .87cm2. No aortic regurgitation is present. Mitral Valve Moderate mitral annular calcification. No evidence of mitral valve stenosis. Mild mitral regurgitatio n. Tricuspid Valve The tricuspid valve is normal in structure. There is no tricuspid valve stenosis. Trace to mild tricu spid regurgitation. Pulmonic Valve Pulmonic valve is not well visualized. There is no pulmonic valvular stenosis. There is no pulmonic v alvular regurgitation. Great Vessels The aortic root is normal in size. Ascending aorta is not well visualized. Ascending aorta is not wel l visualized. The IVC collapses <50% with inspiration. Pericardium There is no pericardial effusion. 2D Dimensions IVSD d PLAX 1.24 cm F: 0.6-1.0 LV Vol A2C d MOD 152.8 mL LVPW d PLAX 1.20 cm F: 0.6 - 1.0 LV Vol A4C d MOD 194.1 mL LVID d PLAX 4.96 cm F: 3.8 - 5.2 LA vol/ BSA A4C s A-L 37.9 mL/m2 LVDs 3.70 cm F: 2.2 - 3.5 LA Area A4C s MOD 23.87 cm2 Ao Root d 2.74 cm F: 2.7 - 3.3 LV EF A4C MOD 50.6 % RA Area A4C 17.35 cm2 LV EF A2C MOD 53.0 % RA Vol/ BSA A4C s A-L 24.5 mL/m2 LV EF Biplane MOD 51.0 % LV EF Teichholz 49.7 % SV 87.81 mL LVEF (Gee's) 51.00 % F: 54 - 74 SV Index 42.86 mL/m2 LV Volume 128.11 mL F: 46 - 106 LV Volume Index 62.49 mL/m2 F: 29 - 61 LV Vol Biplane MOD 172.2 mL FS 25.20 % M-Mode TAPSE 3.00 cm (M/F) >1.7 LV Diastology MV E' medial 0.090 (>0.07 m/s) E/A Ratio 1.6 LV E/e MED 18.25 (<14) MV E Vmax 1.64 (0.4-1.3 m/s) MV E' lateral 0.093 (>0.1 m/s) MV A Vmax 1.00 (0.4-1.3 m/s) LV E/e LAT 17.65 (<14) MV E/A Ratio 1.58 MV E/E' medial 18.27 MV E/E' lateral 17.70 Aortic Valve LVOT Area 2.54 cm2 AoV Area Vmax 0.87 cm2 LVOT Vmax 1.41 m/s AoV Area/ BSA (Vmax) 0.43 cm2/m2 LVOT Mean Kenn. 1.14 m/s AKIRA Mean Kenn. 0.91 cm2 LVOT Peak Grad 7.9 mmHg AKIRA Mean Kenn. Index 0.44 cm2/m2 LVOT Mean Grad 5.6 mmHg LVOT VTI 0.327 m LVOT Diam s 1.75 cm AoV Vmax 4.10 m/s Velocity Ratio 0.34 AoV Mean Kenn. 3.19 m/s AoV Peak Grad 67.3 mmHg LVOT SV 82.87 mL AoV Mean Grad 44.1 mmHg AoV VTI 0.971 m AoV Area VTI 0.85 cm2 AoV Area/ BSA (VTI) 0.42 cm/m2 Mitral Valve MV DT 233 (160-240 msec) MV PHT 68 msec MV Area PHT 3.25 cm2 MV VTI 0.529 m MV VTI Annulus 0.525 m MV Area VTI 1.55 (4.0-6.0 cm2) Pulmonary Valve PV Vmax 1.46 (0.5-1.5 m/s) RVOT Peak Gr. 4.91 mmHg PV Peak Grad 8.5 mmHg RVOT Mean Gr. 2.35 mmHg PV Mean Grad 4.2 mmHg RVOT VTI 0.197 m PV VTI 0.261 m RVOT Vmax 1.11 m/s Tricuspid Valve TR Peak Grad 36.1 mmHg TR Vmax 3.01 m/s RA Pressure 8.00 mmHg RVSP (TR) 44.2 mmHg
[2021-01-04 09:58] LABS: Troponin I 0.08 ng/mL (<0.06)
--- NOTE | 2021-01-04 11:06 | W.PM.PROGNOT ---
Date of Service Date of service: 01/04/21 Time of Service: 11:06 Assessment and Plan Assessment and plan (1) Bacteremia: Start date: 01/04/21 Start time: 12:08 Status: Acute Assessment and plan: Blood cultures growing gram negative bita one bottle aerobic Echo done revealing no vegetations, EF 55%, moderate PHTN, calcification on mitral valve with mild regurg and tricuspid valve with mild regurg. Repeat cultures done Source is cellulitis, continue zosyn while awaiting sensitivities Afebrile overnight, no leukocytosis. (2) Fever: Start date: 01/04/21 Start time: 12:08 Status: Resolved Assessment and plan: defervescesed (3) Bilateral cellulitis of lower leg: Start date: 01/04/21 Start time: 12:12 Status: Acute Assessment and plan: Appears to be more LLE after having lasix as she was volume overloaded yesterday RLE has no erythema She does have edema to TERESE thigh, and it is firm, concern for possible DVT. U/S ordered Stat, will IV morphine x 1 dose for u/s. If negative will give additional dose IVP lasix awaiting wound culture as above (4) Pneumonia: Start date: 01/04/21 Start time: 12:13 Status: Ruled-out Assessment and plan: IS, Not requiring oxygen Unlikely the source. no cough, fever, signs of pneumonia She is doing well, she does have few expiratory wheezing likely cardiac (5) Pulmonary edema: Start date: 01/04/21 Start time: 12:15 Status: Resolved Assessment and plan: continue lasix and spironolactone (6) Hypoxia: Start date: 01/04/21 Start time: 12:19 Status: Resolved Assessment and plan: On RA not requiring oxygen likely from volume overload (7) Chronic acquired lymphedema: Start date: 01/04/21 Start time: 12:20 Status: Acute Assessment and plan: Will have PT work with her Elevate legs when able to would benefit from lymphedema wraps (8) Elephantiasis nostra verrucosa: Start date: 01/04/21 Start time: 12:21 Status: Acute Assessment and plan: as above (9) Diabetes mellitus: Start date: 01/04/21 Start time: 12:21 Status: Chronic Assessment and plan: SSI Fingersticks Glucose by lab 127 this am Continue to monitor. Carb controlled diet Qualifiers: Diabetes mellitus type: type 2 Diabetes mellitus field training agent insulin use: without field training agent use Diabetes mellitus complication status: without complication Qualified Code(s): E11.9 - Type 2 diabetes mellitus without complications (10) Cirrhosis: Start date: 01/04/21 Start time: 12:22 Status: Chronic Assessment and plan: Jaundice with Icterus Ammonia level slightly elevated continue lactulose no signs of confusion continue rifaximin, lasix, and spironolactone Qualifiers: Hepatic cirrhosis type: other cirrhosis Qualified Code(s): K74.69 - Other cirrhosis of liver (11) Elevated troponin: Start date: 01/04/21 Start time: 12:24 Status: Acute Assessment and plan: Trending out her troponins these are baseline. She has had elevated trops at 0.12 up to 0.14 since 2019, likely due to CKD with cirrohsis, repeat trop this am 0.08 trending down, likely demand ischemia as well from sepesis. Will d/c telemetry (12) DVT prophylaxis: Start date: 01/04/21 Status: Acute Assessment and plan: Due to urinary bleeding, varical bleeding, will use SCD for anticoagulants, hold all chemical. will also hem stools above case discussed with Dr. Rich Subjective Subjective Patient reports: still having pain Interval history since last seen: Doing fairly well though she is c/o pain to her left upper thigh and it is firm I am concerned that there maybe a blood clot therefore I have ordered an u/s of the thigh. This is pending. She was volume overloaded yesterday, after diuretics it does appear the source is her LLE. Erythema from toes down the inner and outer aspect of her foot on the dorsum as well up to mid bush possibly below the knee hard to differentiate due to atrophy from elephantiasis. Echo ordered, Positive blood cultures, repeat cultures done. Continue zosyn, wbc normal, trops have stabilized will d/c telemetry as this likely demand ischemia due to sepsis. She denies CP, SOB, N/V/D Exam Narrative Exam Narrative: Const: Well-nourished, obese, well-developed, appearing stated age, Sitting up in bed Eyes: PERRL, EOMI. Icteric scleara ENT: Atraumatic. Neck: Symmetric, trachea midline, MMM Cardio: Murmur 3/6 systolic, Regular rate and rhythm .RESP: Unlabored respiratory effort. Not requiring oxygen today. expiratory wheezes, likely cardiac wheezes, using IS, no rales or rhonchi .GI: soft, Nontender/Nondistended. No guarding or rebound. BS x 4 Skin: Bilateral feet with atrophy from chronic elephantiasis. No cyanosis or clubbing, Normal movement of all extremities. LLE with erythema to foot from dorsum aspect going up over the toes, circumferential as well to the ankle up unable to differentiate where erythema stops if at bush or higher due to atrophy bilaterally and elephantiasis. Demarcation of tissue between toes likely source or organism as no other open areas. Back/Spine: no kyphosis, no cva tenderness Neuro: jig borer II-XII grossly intact. Sensation grossly intact, no focal neurologic deficits. Psych: (AAO) x3. Appropriate mood and affect Objective Last Vital Signs Temp 37.0 C 01/04/21 04:21 Pulse 75 01/04/21 08:01 Resp 20 01/04/21 10:30 BP 114/84 01/04/21 08:01 Pulse Ox 93 01/04/21 09:25 Laboratory Results - last 24 hr 01/03/21 01/03/21 01/04/21 12:25 15:52 06:28 WBC RBC Hgb Hct MCV MCH MCHC RDW Plt Count MPV Immature Gran % Neutrophils % Lymphocytes % Monocytes % Eosinophils % Basophils % Nucleated RBC % Absolute Neutrophils Absolute Lymphocytes Absolute Monocytes Absolute Eosinophils Absolute Basophils RBC Morphology Sodium 142 Potassium 3.5 Chloride 108 H Carbon Dioxide 32.3 H Anion Gap 1.7 L BUN 23 H Creatinine 1.0 Estimated GFR/1.73 m2 56.00 Glucose 143 H Calcium 8.1 L Magnesium 1.9 Ammonia Troponin I 0.13 H* 0.12 H* C-Reactive Protein 2.49 H 01/04/21 01/04/21 01/04/21 06:28 06:28 06:28 WBC 9.25 RBC 3.58 L Hgb 11.7 Hct 34.5 L MCV 96.4 H MCH 32.7 MCHC 33.9 RDW 13.9 Plt Count 81 L MPV 10.3 Immature Gran % 0.2 Neutrophils % 79.2 Lymphocytes % 9.8 Monocytes % 6.7 Eosinophils % 3.2 Basophils % 0.9 Nucleated RBC % 0 Absolute Neutrophils 7.32 H Absolute Lymphocytes 0.91 L Absolute Monocytes 0.62 Absolute Eosinophils 0.30 Absolute Basophils 0.08 RBC Morphology Normal Sodium Potassium Chloride Carbon Dioxide Anion Gap BUN Creatinine Estimated GFR/1.73 m2 Glucose Calcium Magnesium Ammonia 58 H Troponin I 0.08 H* C-Reactive Protein
--- NOTE | 2021-01-04 11:23 | PT.INIE ---
Date of service: 01/04/21 Time of Service: 11:23 PT Notes Visit Reasons: FEVER, LEG CELLULIIS, PNEUMONIA, UTI Physical Therapy Inpatient Initial Evaluation Date: 01/04/2021 Referring Doctor: Nohemy Arellano NP PT Orders: PT CONSULT: Eval/Treat Precautions: Fall. Standard. Activity as tolerated. Patient Profile/Admitting Diagnosis: Mayra is a 65-year-old female with past medical history significant for hepatic encephalopathy, diabetes mellitus, and aortic stenosis who presented to the ED on 01/03/2021 with fever, chills, nausea, vomiting, cough, and weakness. Patient is diagnosed with BLE cellulitis, pneumonia, pulmonary edema, and hypoxia. PMHX: Medical History Abdominal pain, chronic, epigastric (03/23/16) Advance directive on file Annual physical exam (02/22/18) Aortic stenosis, severe Bacteremia due to group B Streptococcus Bleeding esophageal varices (03/10/16) Breast mass CAP (community acquired pneumonia) Carpal tunnel syndrome right; s/p release Cellulitis Cellulitis Cervical disc disorder with myelopathy (09/04/12) Chronic epigastric pain (03/23/16) Complicated UTI (urinary tract infection) Diabetic foot infection Discharge planning issues DVT prophylaxis DVT prophylaxis Edema, unspecified 06/28/16 B/L Elevation of level of transaminase and lactic acid dehydrogenase (LDH) Epistaxis Esophageal varices with hemorrhage Fever Fever, unknown origin 04/14/16 Fluid overload Foot pain GI bleed Gram-positive bacteremia Hepatic encephalopathy (03/10/16) Hyperlipidemia (09/04/12) Incisional hernia (01/15/15) Increased body mass index Mild epistaxis 12/21/15 Nausea Pancytopenia Physical deconditioning Pleural effusion Pneumonia Portal hypertension Sepsis Sepsis Sepsis syndrome Thyroid nodule right; 2008-[facility] [place]; 2.3cm nodule; neg. biopsy Uninodular goiter Tubular adenoma (04/12/13) Surgical History Colonoscopy - IV Sedation (04/12/13) DR. Bhumika CLAYTON Open Carpal Tunnel release RIGHT PROCEDURES OTHER CERVICAL FUS ANT discectomy 2008 [facility] [place]; NEGATIVE THYROID BX S/P carpal tunnel release right S/P cervical spinal fusion anterior; discectomy S/P cervical spinal fusion anterior;discectomy S/P tonsillectomy Status post biopsy of thyroid gland 09/18/08 neg Status post carpal tunnel release Status post cervical spinal arthrodesis Status post tonsillectomy Tonsillectomy Social History/Home Situation: Patient lives with and daughter in a private home with 3 steps to enter and rails on both sides. She is independent with all aspects of ADLs without the need for assistive ambulatory device or adaptive equipment prior to admission. She has not had any falls for the past 12 months. Equipment Owned/DME: None Subjective: Agreeable to trying FWW with walking to offload L LE. Reports 4/10 pain in her L leg and foot. She denies any nausea, pain, dizziness, and headache throughout session. She states that she has compression garments for her legs that she uses for her chronic swelling. Objective: General Observation: Obese. IV access in L UE. Brawny edema to bilateral legs with beginning fibrosis palpated with the left more affected than the right. Erythema to B legs. Mental Status: Alert and oriented x4 Pain: 3-4/10 in L LE ROM: Right Upper Extremity: Shoulder Flexion WFL. Shoulder abduction WFL. Elbow flexion WFL. Wrist flexion WFL. Opening and closing of hand WFL. Left Upper Extremity: Shoulder Flexion WFL. Shoulder abduction WFL. Elbow flexion WFL. Wrist flexion WFL. Opening and closing of hand WFL. Right Lower Extremity: Hip flexion WFL. Hip abduction WFL. Knee flexion WFL. Ankle dorsiflexion WFL. Ankle plantarflexion WFL. Left Lower Extremity: Hip flexion WFL. Hip abduction WFL. Knee flexion WFL. Ankle dorsiflexion WFL. Ankle plantarflexion WFL. Strength: Right Upper Extremity: Shoulder flexors 5/5. Shoulder abductors 5/5. Elbow flexors 5/5. Elbow extensors 5/5. Web Applications Administrator strong. Left Upper Extremity: Shoulder flexors 5/5. Shoulder abductors 5/5. Elbow flexors 5/5. Elbow extensors 5/5. Web Applications Administrator strong. Right Lower Extremity: Hip flexors 4/5. Hip abductors 4/5. Knee flexors 4/5. Knee extensors 4/5. Ankle dorsiflexors 4/5. Ankle plantarflexors 4/5. Left Lower Extremity: Hip flexors 4/5. Hip abductors 4/5. Knee flexors 4/5. Knee extensors 4/5. Ankle dorsiflexors 4/5. Ankle plantarflexors 4/5. Sensation: Intact as to pain and pressure on bilateral lower extremities, reports frequent sensation on the soles of the feet and the dorsum of the toes. Bed Mobility/Transfers: Sit to stand supervision Stand to sit supervision Bed to chair standby assist Chair to bed standby assist Gait: Patient tolerated level surface ambulation of 300 feet using front wheeled walker with standby assist. Reciprocal swing through gait pattern. Gait pattern unremarkable. No antalgic gait seen. Mild S OB during activity. Balance: Static Sitting: Normal Dynamic Sitting: Normal Static Standing: Good Dynamic Standing: Fair Special Tests: Mobility Limitations Standardized Measure [facility] AM-PAC 6 clicks Basic Mobility Inpatient Short Form: Raw Score: 23 CMS Score: 11 % deficit Informed Consent/Education: Patient instructed in purpose of PT consult and plan of care. Assessment: Mayra demonstrates the need for assistive ambulatory device for all mobility ADL performance, functional mobility decline, decreased activity tolerance, and generalized weakness of bilateral lower extremities due to admitting diagnoses. Patient will benefit from home health PT services in order to progress mobility level using least restrictive assistive ambulatory device, assess home safety, identify additional equipment needs, and establish a functional maintenance program that will increase ability of patient to remain at home. Patient presents with clinical signs and symptoms consistent with current/admitting diagnoses that have resulted to mobility limitations, gait instability, and generalized weakness as demonstrated by the following impairment level findings: 1. Decreased strength to B LE major muscle groups 2. Swelling and pain B LE with L >> 3. Impaired activity tolerance 4. Mild shortness of breath Impairments are contributing to the following functional limitations: 1. Inability to safely ambulate without assistive device 2. Increase completion time for mobility ADL performance 3. Inability to negotiate steps alone safely Patient is assessed as a [id number] moderate complexity based on the following: History: 65-year-old female with impairment level findings, functional limitations, and past medical history as listed above Examination: Demonstrable impairment in strength, balance, and activity tolerance with underlying impairments and functional limitations as documented above Presentation: Evolving Decision Makin moderate complexity Goals: Goals X3 days 1. Supine-Sit independent 2. Sit-Supine independent 3. Sit-Stand independent 4. Stand-Sit independent 5. Bed-Chair independent 6. Chair-Bed independent 7. Independent gait on level surface with use of no device for at least 300 feet without report of pain nor dyspnea 8. Independent stair negotiation while holding onto bilateral rails for at least 5 steps without report of pain nor dyspnea 9. Independent with home exercise program 10. Good static and dynamic standing balance/tolerance Plan of Care/Treatment Plan: 1-2x/day, 7 days/week x 1 week. Plan of care has been reviewed with the VP SECURITIES providing the service under Physical Therapy direction. Initiate Physical Therapy intervention for strengthening, bed mobility, transfers, gait, stairs, balance training, use of assistive device. DISCHARGE RECOMMENDATIONS: Home when medically cleared. Home Health PT as needed. TREATMENT CODE/TIME: 72019 x 27 minutes beginning at 11:23 AM. Thank you very much for this referral. Gill Hill PT, DPT, CLT [facility] [place], [place]
[2021-01-04] MEDS: MORPHine 2 MG/ML SYR 1 MG IVP (11:50)
[2021-01-04] MEDS: Insulin Aspart 300 UNITS/3 ML PEN SC ×2 (12:00→17:11)
--- NOTE | 2021-01-04 16:01 | WOUNDCONS ---
- If Service Date Differs Date of service: 01/04/21 Time of Service: 16:02 Wound Initial Evaluation Narrative: Consulted on bilat feet fissures. Spoke with Kvng Arellano NP who recommended wound consult be deferred at this time because pt is pending transfer to a tertiary care center for an IVC filter placement. Recommend that pt follow up at tertiary care center for feet open areas. - Recomendation Recomendation:: Follow up at tertiary care center with podiatry.
--- NOTE | 2021-01-04 16:50 | PT.INDS ---
Date of service: 01/06/21 Time of Service: 13:21 PT Notes Visit Reasons: FEVER, LEG CELLULIIS, PNEUMONIA, UTI Physical Therapy Inpatient Initial Evaluation Date: 01/04/2021 Dates of Service: 01/04/21 only This is a clinical summary of care provided on the duration of dates listed above. No charge was made in the completion of this documentation. Referring Doctor: Nohemy Arellano NP PT Orders: PT CONSULT: Eval/Treat Precautions: Fall. Standard. Activity as tolerated. Patient Profile/Admitting Diagnosis: Mayra is a 65-year-old female with past medical history significant for hepatic encephalopathy, diabetes mellitus, and aortic stenosis who presented to the ED on 01/03/2021 with fever, chills, nausea, vomiting, cough, and weakness. Patient is diagnosed with BLE cellulitis, pneumonia, pulmonary edema, and hypoxia. PMHX: Medical History Abdominal pain, chronic, epigastric (03/23/16) Advance directive on file Annual physical exam (02/22/18) Aortic stenosis, severe Bacteremia due to group B Streptococcus Bleeding esophageal varices (03/10/16) Breast mass CAP (community acquired pneumonia) Carpal tunnel syndrome right; s/p release Cellulitis Cellulitis Cervical disc disorder with myelopathy (09/04/12) Chronic epigastric pain (03/23/16) Complicated UTI (urinary tract infection) Diabetic foot infection Discharge planning issues DVT prophylaxis DVT prophylaxis Edema, unspecified 06/28/16 B/L Elevation of level of transaminase and lactic acid dehydrogenase (LDH) Epistaxis Esophageal varices with hemorrhage Fever Fever, unknown origin 04/14/16 Fluid overload Foot pain GI bleed Gram-positive bacteremia Hepatic encephalopathy (03/10/16) Hyperlipidemia (09/04/12) Incisional hernia (01/15/15) Increased body mass index Mild epistaxis 12/21/15 Nausea Pancytopenia Physical deconditioning Pleural effusion Pneumonia Portal hypertension Sepsis Sepsis Sepsis syndrome Thyroid nodule right; 2008-[facility] [place]; 2.3cm nodule; neg. biopsy Uninodular goiter Tubular adenoma (04/12/13) Surgical History Colonoscopy - IV Sedation (04/12/13) DR. Bhumika CLAYTON Open Carpal Tunnel release RIGHT PROCEDURES OTHER CERVICAL FUS ANT discectomy 2009 [facility] [place]; NEGATIVE THYROID BX S/P carpal tunnel release right S/P cervical spinal fusion anterior; discectomy S/P cervical spinal fusion anterior;discectomy S/P tonsillectomy Status post biopsy of thyroid gland 09/18/08 neg Status post carpal tunnel release Status post cervical spinal arthrodesis Status post tonsillectomy Tonsillectomy Social History/Home Situation: Patient lives with and daughter in a private home with 3 steps to enter and rails on both sides. She is independent with all aspects of ADLs without the need for assistive ambulatory device or adaptive equipment prior to admission. She has not had any falls for the past 12 months. Equipment Owned/DME: None Subjective: NT. See most recent AEROSPACE STRESS ENGINEER notes. Objective: General Observation: Obese. NT. See most recent AEROSPACE STRESS ENGINEER notes. Mental Status: NT. See most recent AEROSPACE STRESS ENGINEER notes. Pain: NT. See most recent AEROSPACE STRESS ENGINEER notes. ROM: Right Upper Extremity: Shoulder Flexion WFL. Shoulder abduction WFL. Elbow flexion WFL. Wrist flexion WFL. Opening and closing of hand WFL. Left Upper Extremity: Shoulder Flexion WFL. Shoulder abduction WFL. Elbow flexion WFL. Wrist flexion WFL. Opening and closing of hand WFL. Right Lower Extremity: Hip flexion WFL. Hip abduction WFL. Knee flexion WFL. Ankle dorsiflexion WFL. Ankle plantarflexion WFL. Left Lower Extremity: Hip flexion WFL. Hip abduction WFL. Knee flexion WFL. Ankle dorsiflexion WFL. Ankle plantarflexion WFL. Strength: Right Upper Extremity: Shoulder flexors 5/5. Shoulder abductors 5/5. Elbow flexors 5/5. Elbow extensors 5/5. Financial Aid Coordinator strong. Left Upper Extremity: Shoulder flexors 5/5. Shoulder abductors 5/5. Elbow flexors 5/5. Elbow extensors 5/5. Financial Aid Coordinator strong. Right Lower Extremity: Hip flexors 4/5. Hip abductors 4/5. Knee flexors 4/5. Knee extensors 4/5. Ankle dorsiflexors 4/5. Ankle plantarflexors 4/5. Left Lower Extremity: Hip flexors 4/5. Hip abductors 4/5. Knee flexors 4/5. Knee extensors 4/5. Ankle dorsiflexors 4/5. Ankle plantarflexors 4/5. Sensation: Intact as to pain and pressure on bilateral lower extremities, reports frequent sensation on the soles of the feet and the dorsum of the toes. Bed Mobility/Transfers: Sit to stand supervision Stand to sit supervision Bed to chair standby assist Chair to bed standby assist Gait: Patient tolerated level surface ambulation of 300 feet using front wheeled walker with standby assist. Reciprocal swing through gait pattern. Gait pattern unremarkable. No antalgic gait seen. Mild S OB during activity. Balance: Static Sitting: Normal Dynamic Sitting: Normal Static Standing: Good Dynamic Standing: Fair Assessment: Mayra needed to be transferred to [facility] [place] directly for immediate management left femoral DVT. Mayra demonstrates the need for assistive ambulatory device for all mobility ADL performance, functional mobility decline, decreased activity tolerance, and generalized weakness of bilateral lower extremities due to admitting diagnoses. Patient will benefit from home health PT services in order to progress mobility level using least restrictive assistive ambulatory device, assess home safety, identify additional equipment needs, and establish a functional maintenance program that will increase ability of patient to remain at home. Patient presents with clinical signs and symptoms consistent with current/admitting diagnoses that have resulted to mobility limitations, gait instability, and generalized weakness as demonstrated by the following impairment level findings: 1. Decreased strength to B LE major muscle groups 2. Swelling and pain B LE with L >> 3. Impaired activity tolerance 4. Mild shortness of breath Impairments are contributing to the following functional limitations: 1. Inability to safely ambulate without assistive device 2. Increase completion time for mobility ADL performance 3. Inability to negotiate steps alone safely Goals: Goals X3 days 1. Supine-Sit independent NOT MET 2. Sit-Supine independent NOT MET 3. Sit-Stand independent NOT MET 4. Stand-Sit independent NOT MET 5. Bed-Chair independent NOT MET 6. Chair-Bed independent NOT MET 7. Independent gait on level surface with use of no device for at least 300 feet without report of pain nor dyspnea NOT MET 8. Independent stair negotiation while holding onto bilateral rails for at least 5 steps without report of pain nor dyspnea NOT MET 9. Independent with home exercise program NOT MET 10. Good static and dynamic standing balance/tolerance NOT MET DISCHARGE RECOMMENDATIONS: N/A. TREATMENT CODE/TIME: NE Thank you very much for this referral. Gill Hill PT, DPT, CLT [facility] [place], [place]
--- NOTE | 2021-01-04 17:10 | DSE_ITS ---
Date of service: 01/04/21 Time of Service: 17:10 DS: Diagnosis Discharge Diagnosis (1) DVT femoral (deep venous thrombosis) with thrombophlebitis: Start date: 01/04/21 Start time: 17:12 Status: Acute Asessment and Plan: u/s findings However, this study is positive for thrombosis within the ipsilateral left greater saphenous vein extending up from the knee to within 1.7 cm from the junction of the greater saphenous vein and common femoral vein. This finding does place this patient at risk for pulmonary emboli. Patient is not a candidate for DOAC or enoxparin, given cirrhosis, esophageal varices and large amount bloody urine The best option for her would be a filter She was placed on heparin drip until accepted at tertiary [facility], she has been accepted to [facility], drloren dcd. (2) Bacteremia: Start date: 01/04/21 Start time: 17:11 Status: Acute Asessment and Plan: Assessment and plan: Blood cultures growing gram negative sadiq one bottle aerobic Echo done revealing no vegetations, EF 55%, moderate PHTN, calcification on mitral valve with mild regurg and tricuspid valve with mild regurg. Repeat cultures done Source is cellulitis, continue zosyn while awaiting sensitivities Afebrile overnight, no leukocytosis. (3) Fever: Start date: 01/04/21 Start time: 17:17 Status: Resolved Asessment and Plan: defervesced (4) Bilateral cellulitis of lower leg: Start date: 01/04/21 Start time: 17:39 Status: Acute Asessment and Plan: Appears to be more LLE after having lasix as she was volume overloaded yesterday RLE has no erythema She does have edema to TERESE thigh, and it is firm, concern for possible DVT. U/S ordered Stat, will IV morphine x 1 dose for u/s. If negative will give additional dose IVP lasix awaiting wound culture as above (5) Pulmonary edema: Start date: 01/04/21 Start time: 17:40 Status: Resolved Asessment and Plan: IS, Not requiring oxygen Unlikely the source. no cough, fever, signs of pneumonia She is doing well, she does have few expiratory wheezing likely cardiac (6) Hypoxia: Start date: 01/04/21 Start time: 17:40 Status: Resolved Asessment and Plan: On RA not requiring oxygen likely from volume overload (7) Chronic acquired lymphedema: Start date: 01/04/21 Start time: 17:41 Status: Acute Asessment and Plan: Will have PT work with her Elevate legs when able to would benefit from lymphedema wraps (8) Elephantiasis nostra verrucosa: Start date: 01/04/21 Start time: 17:41 Status: Acute (9) Diabetes mellitus: Start date: 01/04/21 Start time: 17:41 Status: Chronic Asessment and Plan: SSI Fingersticks Glucose by lab 127 this am Continue to monitor. Carb controlled diet (10) Cirrhosis: Start date: 01/04/21 Start time: 17:43 Status: Chronic Asessment and Plan: Jaundice with Icterus Ammonia level slightly elevated continue lactulose no signs of confusion continue rifaximin, lasix, and spironolactone (11) Elevated troponin: Start date: 01/04/21 Start time: 17:44 Status: Acute Asessment and Plan: Trending out her troponins these are baseline. She has had elevated trops at 0.12 up to 0.14 since 2019, likely due to CKD with cirrohsis, repeat trop this am 0.08 trending down, likely demand ischemia as well from sepesis. above case discussed with Dr. Rich Discharge Plan Disposition Patient Disposition: [facility] Condition: Stable Discharge Details Reason For Visit: FEVER, LEG CELLULIIS, PNEUMONIA, UTI Admit Date/Time: 01/03/21 09:40 Admit Provider: Cy Rich Attending Provider: Cy Rich Primary Care Provider: Malu Baron Hospital Course Hospital Course: 65 y.o female that presented with fever, chills and n/v from home. She was found to have cellulitis to LLE with volume overload on admission. In the ED yesterday she was febrile with tmax 38.2, 1.6 mag level, bnp 339, procal 0.3 crp 2.49, and initiated on zosyn and vanco in the ED for LLE cellulitis. Bilateral feet with atrophy from chronic elephantiasis. No cyanosis or clubbing, Normal movement of all extremities. LLE with erythema to foot from dorsum aspect going up over the toes, circumferential as well to the ankle up unable to differentiate where erythema stops if at bush or higher due to atrophy bilaterally and elephantiasis. Demarcation of tissue between toes likely source or organism as no other open areas. She was admitted to m/s on telemetry due to elevated troponins. Trops trended down. She diuresed with a net of -1235. LS with soft fine expiratory wheezing today, likely cardiac related. She continued to c/o about pain to her left thigh which was swollen and firm, u/s ordered revealing Positive study. Although there is no evidence of true DVT, there is significant thrombosis of the left greater saphenous vein as described above, extending from the level the knee up to the upper thigh just short of the saphenofemoral junction (1.7 cm). This finding places patient risk for pulmonary emboli. D/t cirrhosis, hx of esophageal varicies, INR 1.3 she is not a candidate for DOAC or LMWH. Need for transfer to tertiary center was warranted and [facility] was called, while waiting heparin drip initiated for prevention. Blood cultures did grow gram negative rods, zosyn continued. Fevers defervesced. [facility] called back both hospitalist and vascular agree patient needs transfer to tertiary center. She has been accepted. When bed available they will call back with room number. She also had and echo today d/t blood culture results Conclusion Mild concentric left ventricular hypertrophy. Estimated ejection fraction is 55%. There are no segmental wall motion abnormalities Normal right ventricular size and systolic function Borderline dilated left atrium. Right atrium is normal in size The aortic valve is sclerotic, probably trileaflet. There is severe aortic stenosis with a peak gradient of 67, mean of 44 mmHg and a calculated aortic area of 0.9 cm??. There is no aortic regurgitation Moderate mitral annular calcification with mild regurgitation Normal tricuspid valve with trace to mild regurgitation. Estimated right ventricular systolic pressure is 44 mmHg At this time she is not requiring oxygen, denies CP, SOB, N/V/D. Home Meds and New Rx's Prescriptions: No Action (DME) OneTouch Ultra Test strip 1 ea Miscellaneous QID Qty: 300 RF: 5 amlodipine 5 mg tablet 5 mg PO DAILY Qty: 90 RF: 5 oxycodone 5 mg tablet 5 mg PO BID MDD 3 PRN (Reason: pain) Qty: 15 RF: 0 Xifaxan 550 mg tablet 550 mg PO BID Qty: 180 RF: 2 sucralfate 1 gram tablet 1 g PO AC & HS Qty: 360 RF: 12 ferrous sulfate [iron] 325 mg (65 mg iron) tablet 325 mg PO DAILY RF: 0 pantoprazole 40 mg tablet,delayed release (DR/EC) 40 mg PO DAILY Qty: 180 RF: 3 ammonium lactate 12 % lotion 1 applic topical BID RF: 0 zinc sulfate 220 MG capsule 220 mg PO DAILY Qty: 90 RF: 3 (DME) pen needle, diabetic [BD Ultra-Fine Orig Pen Needle] 1 EACH needle 1 ea Miscellaneous BID Qty: 180 RF: 3 triamcinolone acetonide 0.1 % cream 1 applic TP QID Qty: 80 RF: 1 ondansetron HCl [Zofran] 4 mg tablet 4 mg PO DAILY PRN (Reason: nausea and vomiting) Qty: 90 RF: 3 lactulose 20 gram/30 mL solution 10 g PO TID Qty: 3000 RF: 5 pregabalin 100 mg capsule 100 mg PO TID Qty: 270 RF: 4 fluocinonide 0.05 % ointment 1 applic TOPICAL DAILY RF: 0 mupirocin 2 % ointment 0 applic TOPICAL DAILY RF: 0 ascorbic acid (vitamin C) [Vitamin C] 500 mg Tablet 500 mg PO DAILY Qty: 30 RF: 0 hydroxyzine HCl 25 mg Tablet 25 mg PO QID PRN PRNQty: 20 RF: 0 Bio-K plus 50 billion cell Capsule,Delayed Release(Dr/Ec) 1 cap PO DAILY Qty: 30 RF: 0 nadolol 40 mg tablet 40 mg PO DAILY Qty: 30 RF: 0 spironolactone 50 mg tablet 50 mg PO DAILY Qty: 30 RF: 0 furosemide 20 mg tablet 60 mg PO DAILY RF: 0 Discharge Instructions Additional Instructions: Transfer to [facility] for further management Activity:: Activity as Tolerated Diet:: Other Discharge Orders Discharge Orders: Discharge Order (Routine); Ordered 01/04/21 Ordered By: Nohemy Arellano DS: Summary Time Spent with Patient providing and/or coordinating discharge services: Greater than 30 minutes (approx 180 mins spent discharging patient) Status at Discharge Functional status at discharge: bed bound Overall status at discharge: patient is not back to baseline Mental Status: mental status grossly normal Speech and Movement: speech and movement normal Mood: congruent mood Affect: normal affect Exam Narrative Exam Narrative: Const: Well-nourished, obese, well-developed, appearing stated age, Sitting up in bed Eyes: PERRL, EOMI. Icteric scleara ENT: Atraumatic. Neck: Symmetric, trachea midline, MMM Cardio: Murmur 3/6 systolic, Regular rate and rhythm .RESP: Unlabored respiratory effort. Not requiring oxygen today. expiratory wheezes, likely cardiac wheezes, using IS, no rales or rhonchi .GI: soft, Nontender/Nondistended. No guarding or rebound. BS x 4 Skin: Bilateral feet with atrophy from chronic elephantiasis. No cyanosis or clubbing, Normal movement of all extremities. LLE with erythema to foot from dorsum aspect going up over the toes, circumferential as well to the ankle up unable to differentiate where erythema stops if at bush or higher due to atrophy bilaterally and elephantiasis. Demarcation of tissue between toes likely source or organism as no other open areas. Back/Spine: no kyphosis, no cva tenderness Neuro: pipeman II-XII grossly intact. Sensation grossly intact, no focal neurologic deficits. Psych: (AAO) x3. Appropriate mood and affect Psych Mental Status: mental status grossly normal Speech and Movement: speech and movement normal Mood: congruent mood Affect: normal affect DS: Data Vitals/I&O Vitals and I&O: Vital Signs Temperature 37.0 C 01/04/21 04:21 Temperature Source Temporal Artery Scan 01/04/21 04:21 Pulse 75 01/04/21 08:01 Pulse Rhythm Regular 01/04/21 09:00 Pulse 86 01/04/21 11:29 Respiratory Rate 20 01/04/21 11:29 Respiratory Effort Non-Labored 01/04/21 09:00 Respiratory Depth Normal 01/04/21 09:00 Respiratory Pattern Normal 01/04/21 09:00 Blood Pressure 114/84 01/04/21 11:29 Blood Pressure Mean 91 01/04/21 11:29 Blood Pressure Position Supine 01/03/21 11:20 Pulse Oximetry 93 01/04/21 09:25 Oxygen Delivery Method Room Air 01/04/21 09:25 Oxygen Flow Rate 0 01/04/21 09:25 Pain Level 0 01/04/21 04:21 Intake & Output 01/03/21 01/04/21 01/04/21 23:59 11:59 23:59 Intake Total 855.833 / 2455.833 540 / 540 Output Total 1000 / 1000 1150 / 1775 625 / 1775 Balance -144.167 / 1455.833 -610 / -1235 -625 / -1235 Weight 110 kg Intake: IV 495.833 / 2095.833 100 / 100 Oral 360 / 360 440 / 440 Output: Urine 1000 / 1000 1150 / 1775 625 / 1775 Other: Urine Color Light Jenna Light Jenna Light Jenna Urine Appearance Clear Clear Clear Urine Odor None Stool Size Moderate Stool Characteristics Soft Data Completed and Pending Completed studies during hospitalization [Text1]: Exam(s) a RAD:XR portable chest AP EXAM: XR PORTABLE CHEST AP CLINICAL HISTORY: cough, fever, chills TECHNIQUE: COMPARISON: CR,XR XR PORTABLE CHEST AP from 08/07/[address] CHEST PE CTA from 08/11/2020 FINDINGS: The heart is enlarged. There is a question of subtle patchy pulmonary opacities seen bilaterally particularly in the perihilar areas. Possibility of acute infectious process is raised. Follow-up radiographs or chest CT should be cons idered. Exam(s) PROCEDURE INFORMATION: Exam: XR Chest Exam date and time: 01/03/2021 8:27 AM Age: 65 years old Clinical indication: Other: Cough, fever, chills TECHNIQUE: Imaging protocol: XR of the chest. Views: 1 view. COMPARISON: CR XR PORTABLE CHEST AP 08/07/2020 1:18 AM FINDINGS: Tubes, catheters and devices: Overlying EKG wires Lungs: Mild opacities in the lung bases may represent atelectasis or pneumonia.. Pleural spaces: Unremarkable. No pleural effusion. No pneumothorax. Heart/Mediastinum: Cardiomegaly Bones/joints: Anterior cervical fusion IMPRESSION: Mild opacities in the lung bases may represent atelectasis or pneumonia. Exam(s) a US:US lower extremity venous LT EXAM: US LOWER EXTREMITY VENOUS LT CLINICAL HISTORY: pain and edema to thigh TECHNIQUE: Grayscale, color, and doppler imaging of the deep venous system of the left lower extremity was performed. COMPARISON: None FINDINGS: This study is negative for DVT although the distal femoral vein within Kings's canal is difficult to see due to thigh edema. However, this study is positive for thrombosis within the ipsilateral left greater saphenous vein extending up from the knee to within 1.7 cm from the junction of the greater saphenous vein and common femoral vein. This finding does place this patient at risk for pulmonary emboli. IMPRESSION: 1. Positive study. Although there is no evidence of true DVT, there is significant thrombosis of the left greater saphenous vein as described above, extending from the level the knee up to the upper thigh just short of the saphenofemoral junction (1.7 cm). This finding places patient risk for pulmonary emboli. . Exam(s) a US:US echocardiogram APPROVED REPORT EXAM: Comprehensive 2D, Doppler, and color-flow Echocardiogram Patient Location: In-Patient Room/Bed: [id number] Animal Health Technician: Pricila Hahn RDCS (AE) Indications: Elevated troponin Other Information Study Quality: Fair. Technically limited study due to body habitus, inability to position patient. Conclusion Mild concentric left ventricular hypertrophy. Estimated ejection fraction is 55%. There are no segmental wall motion abnormalities Normal right ventricular size and systolic function Borderline dilated left atrium. Right atrium is normal in size The aortic valve is sclerotic, probably trileaflet. There is severe aortic stenosis with a peak gradient of 67, mean of 44 mmHg and a calculated aortic area of 0.9 cm??. There is no aortic regurgitation Moderate mitral annular calcification with mild regurgitation Normal tricuspid valve with trace to mild regurgitation. Estimated right ventricular systolic pressure is 44 mmHg Wall motion Labs on day of discharge: Labs from last 24 hours 01/04/21 01/04/21 01/04/21 16:50 06:28 06:28 WBC RBC Hgb Hct MCV MCH MCHC RDW Plt Count MPV Immature Gran % Neutrophils % Lymphocytes % Monocytes % Eosinophils % Basophils % Nucleated RBC % Absolute Neutrophils Absolute Lymphocytes Absolute Monocytes Absolute Eosinophils Absolute Basophils RBC Morphology PT Pending INR Pending Sodium Potassium Chloride Carbon Dioxide Anion Gap BUN Creatinine Estimated GFR/1.73 m2 Glucose Calcium Magnesium Ammonia 58 H Troponin I 0.08 H* 01/04/21 01/04/21 06:28 06:28 WBC 9.25 RBC 3.58 L Hgb 11.7 Hct 34.5 L MCV 96.4 H MCH 32.7 MCHC 33.9 RDW 13.9 Plt Count 81 L MPV 10.3 Immature Gran % 0.2 Neutrophils % 79.2 Lymphocytes % 9.8 Monocytes % 6.7 Eosinophils % 3.2 Basophils % 0.9 Nucleated RBC % 0 Absolute Neutrophils 7.32 H Absolute Lymphocytes 0.91 L Absolute Monocytes 0.62 Absolute Eosinophils 0.30 Absolute Basophils 0.08 RBC Morphology Normal PT INR Sodium 142 Potassium 3.5 Chloride 108 H Carbon Dioxide 32.3 H Anion Gap 1.7 L BUN 23 H Creatinine 1.0 Estimated GFR/1.73 m2 56.00 Glucose 143 H Calcium 8.1 L Magnesium 1.9 Ammonia Troponin I 01/04/21 08:10 Blood Blood Culture - Pending 01/04/21 08:00 Blood Blood Culture - Pending Preliminary micro results at discharge 01/03/21 08:07 Urine Culture - Preliminary Urine - Cath Straight 01/03/21 07:20 Blood Culture - Preliminary Blood Gram Negative Sadiq 01/03/21 07:52 Blood Culture - Preliminary Blood NO GROWTH 24 HOURS 01/04/21 08:10 Blood Culture - Pending Blood 01/04/21 08:00 Blood Culture - Pending Blood [facility] Medical History Abdominal pain, chronic, epigastric (03/23/16) Advance directive on file Annual physical exam (02/22/18) Aortic stenosis, severe Bacteremia due to group B Streptococcus Bleeding esophageal varices (03/10/16) Breast mass CAP (community acquired pneumonia) Carpal tunnel syndrome right; s/p release Cellulitis Cellulitis Cervical disc disorder with myelopathy (09/04/12) Chronic epigastric pain (03/23/16) Complicated UTI (urinary tract infection) Diabetic foot infection Discharge planning issues DVT prophylaxis DVT prophylaxis Edema, unspecified 06/28/16 B/L Elevation of level of transaminase and lactic acid dehydrogenase (LDH) Epistaxis Esophageal varices with hemorrhage Fever Fever, unknown origin 04/14/16 Fluid overload Foot pain GI bleed Gram-positive bacteremia Hepatic encephalopathy (03/10/16) Hyperlipidemia (09/04/12) Incisional hernia (01/15/15) Increased body mass index Mild epistaxis 12/21/15 Nausea Pancytopenia Physical deconditioning Pleural effusion Pneumonia Portal hypertension Sepsis Sepsis Sepsis syndrome Thyroid nodule right; 2008-[facility]; 2.3cm nodule; neg. biopsy Uninodular goiter Tubular adenoma (04/12/13) Surgical History Colonoscopy - IV Sedation (04/12/13) DR. Bhumika [place] Open Carpal Tunnel release RIGHT PROCEDURES OTHER CERVICAL FUS ANT discectomy 2008 [facility]; NEGATIVE THYROID BX S/P carpal tunnel release right S/P cervical spinal fusion anterior; discectomy S/P cervical spinal fusion anterior;discectomy S/P tonsillectomy Status post biopsy of thyroid gland 09/18/08 neg Status post carpal tunnel release Status post cervical spinal arthrodesis Status post tonsillectomy Tonsillectomy Family History Mother Pancreatic cancer Father Diabetes Essential hypertension Stroke Sister Heart disease Brother Bone cancer Liver cancer Maternal Grandfather No problems noted. Paternal Grandfather No problems noted. Maternal Grandmother , OLD AGE at age 89. No problems noted. Paternal Grandmother Breast cancer Sister Diabetes Colon cancer Rectal cancer Sister Diabetes Son No problems noted. Son No problems noted. Daughter No problems noted. Daughter Alcohol abuse Asthma Social History Smoking/Tobacco Use Status: Former Tobacco Use Tobacco: How many years used: 2 Second Hand Exposure: Yes Smoking risk assessment performed?: Yes Alcohol Intake: never Drug use: Never Counseling given: No Household members: spouse and children Housing: house Communication Needs: None Do you need help understanding health information?: Rarely Pets and animals: Yes Pets and animals: dog(s) Sexually active: No Do you think of yourself as: straight/heterosexual Current gender identity: female What is your relationship status?: How often do you talk on the phone with friends or family?: three or more times per week How often do you get together with friends or relatives?: once per week How often do you attend restorationism or oriental orthodox services?: 1-3 times per year Do you belong to any clubs or organized social groups?: no Panel score (0-1 are the most socially isolated patients): 2 What type of physical activity do you participate in: decline to answer Duration: < 15 minutes/day Frequency: 1-2 times per week Lyubov/Jain: Yarsanism Special lyubov needs: No Seatbelt use: always Helmet use: No Drive intox or ride w/intox mule driver: No Do you feel safe at home: Yes Do you feel safe in your relationship?: Yes
[2021-01-04 17:25] LABS: INR 1.3 (0.9-1.1); Prothrombin Time 12.7 sec (9.3-11.0)
[2021-01-04] MEDS: Triamcinolone 0.1% CR 15 GM TUBE TP ×2 (17:56→19:40)
[2021-01-04] MEDS: Lachydrin 12% LOTION 225 GM BTL TP (19:40)
== END 2021-01-04 20:30 | disposition short-term general hospital (02) | DRG 299 ==
LOC: ER 09:52 → ICU 12:22
PROVIDERS: Nurse Practitioner Family; Student in an Organized Health Care Education/Training Program; Admitting Provider Internal Medicine; Emergency Provider Physician Assistant; PCP Family Medicine; Visit Provider Internal Medicine
DX: I82.412 Acute embolism and thrombosis of left femoral vein (principal); J81.0 Acute pulmonary edema; L03.116 Cellulitis of left lower limb; M50.00 Cervical disc disorder with myelopathy, unspecified cervical region; K76.6 Portal hypertension; Z68.42 Body mass index [BMI] 45.0-49.9, adult; R78.81 Bacteremia; L03.115 Cellulitis of right lower limb; I89.0 Lymphedema, not elsewhere classified; I35.0 Nonrheumatic aortic (valve) stenosis; E87.79 Other fluid overload; R09.02 Hypoxemia; E11.9 Type 2 diabetes mellitus without complications; K74.69 Other cirrhosis of liver; R74.8 Abnormal levels of other serum enzymes; Z20.822 Contact with and (suspected) exposure to COVID-19; E78.5 Hyperlipidemia, unspecified; Z87.891 Personal history of nicotine dependence; E66.9 Obesity, unspecified; I87.2 Venous insufficiency (chronic) (peripheral)
CPT/HCPCS: 36410; 36415; 51702; 80048; 80053; 84145; 87040; 87077; 87635; 93005; 93306; 96361; 96365; 96366; 96368; 96375; 97162; 97530; 99223; 99233; 99239; 99285; 71045; 81003; 81015; 82140; 83605; 83735; 83880; 84484; 85025; 85610; 86140; 87086; 87186; 93010; 93971; J0131; J1885; J1940; J2270; J2543; J3475

== ENCOUNTER 2021-01-26 15:16 | Outpatient (REF) | payer MEDICARE, BC, SELFPAY ==
[2021-01-26 21:32] LABS: Bilirubin Negative (Negative); Blood Large (Negative); Clarity Sl Cloudy (Clear); Glucose Negative (Negative); Ketones Negative (Negative); Leukocyte Esterase Negative (Negative); Nitrite Negative (Negative); Urobilinogen 0.2 EU/dL (Up TO 0.2)
[2021-01-26 22:08] LABS: Bacteria Negative HPF (Negative); C & S Indicated? No; Casts Negative LPF (Negative); Crystals Negative HPF (Negative); Epithelial Cells Negative HPF (Negative); Mucus Negative (Negative); Other Cells Negative (Negative); RBC >50 HPF (0-2)
== END 2021-01-26 15:17 | disposition home or self-care (01) ==
LOC: LBN 15:16
PROVIDERS: PCP Family Medicine; Visit Provider Family Medicine
DX: R35.0 Frequency of micturition (principal); R31.9 Hematuria, unspecified
CPT/HCPCS: 81003; 81015

== ENCOUNTER 2021-02-01 03:17 | Outpatient (CLI) | payer MEDICARE, BC, SELFPAY ==
[2021-02-01 12:22] LABS: Bilirubin Negative (Negative); Blood Moderate (Negative); Clarity Clear (Clear); Glucose Negative (Negative); Ketones Negative (Negative); Leukocyte Esterase Negative (Negative); Nitrite Negative (Negative); Specific Gravity 1.025 (1.005-1.025); Urobilinogen 0.2 EU/dL (Up TO 0.2)
[2021-02-01 12:33] LABS: Epithelial Cells Few HPF (Negative); INR 1.1 (0.9-1.1); Other Cells Negative (Negative); RBC 20-50 HPF (0-2)
[2021-02-01 12:34] LABS: Bacteria Moderate HPF (Negative); C & S Indicated? Yes; Casts Negative LPF (Negative); Crystals Negative HPF (Negative); Mucus Heavy (Negative)
[2021-02-01 12:57] LABS: HCT 32.9 % (36.0-46.0); HGB 11.3 g/dL (11.2-15.7); MCH 31.9 pg (27.0-33.0); MCHC 34.3 % (32.0-36.0); MCV 92.9 fL (80-95); MPV 10.4 fL (8.0-11.0); Platelet Count 81 10^3/uL (130-400); RBC 3.54 10^6/uL (3.93-5.22); RDW 13.7 % (11.7-14.6); RDW-SD 46.4 fL; WBC 6.21 10^3/uL (4.4-10.8)
== END 2021-02-01 03:18 | disposition home or self-care (01) ==
LOC: LOS 03:18
PROVIDERS: PCP Family Medicine; Visit Provider Family Medicine
DX: K74.69 Other cirrhosis of liver (principal); D69.6 Thrombocytopenia, unspecified; R31.9 Hematuria, unspecified; N39.0 Urinary tract infection, site not specified
CPT/HCPCS: 36415; 85027; 81003; 81015; 85610; 87086

== ENCOUNTER → 2021-03-11 11:10 | Outpatient (BNVA) | payer MEDICARE, BC, SELFPAY | PROVIDERS: PCP Family Medicine; Referring Provider Family Medicine; Visit Provider Nurse Practitioner Gerontology | DX: R31.29 Other microscopic hematuria (principal); E11.9 Type 2 diabetes mellitus without complications; I10 Essential (primary) hypertension | CPT/HCPCS: 99215 ==

== ENCOUNTER 2021-03-17 01:28 | Outpatient (CLI) | payer MEDICARE, BC, SELFPAY ==
[2021-03-17 13:40] LABS: Estimated GFR 55.82 (mL/min/1.73m2)
[2021-03-17] MEDS: Omnipaque 350 MG/ML 100 ML BTL IJ (14:23)
[2021-03-17] MEDS: Normal Saline - Diluent 50 ML VIAL IV ×2 (14:24→14:27)
--- NOTE | 2021-03-17 14:30 | DI.CT_ITS ---
Exam(s) CT ABDOMEN PELVIS WO/W EXAM: CT ABDOMEN PELVIS WO/W CLINICAL HISTORY: gross hematuria, R31.9. TECHNIQUE: Imaging Protocol: Axial computed tomography images with coronal and sagittal reformatted images were created and reviewed CONTRAST MATERIAL: Intravenous: Omnipaque 100cc Oral: None COMPARISON: CT CT CHEST PE CTA from 08/11/2020 FINDINGS: VISUALIZED LUNG BASES: Previously present pleural effusions have resolved. There presently mild jimbo gn-appearing increased markings in the medial aspect of the posterior basal segment of the right lowe r lobe.. ABDOMEN: Esophageal varices are evident. No hiatal hernia. LIVER: TIPS again noted. Cirrhotic appearing liver is again evident. GALLBLADDER/BILIARY: No obvious gallbladder pathology. CBD is not dilated. PANCREAS: There is a 10 by 7 millimeter partially exophytic cystic structure in the anterior aspect o f the pancreatic neck, either cyst or cystic neoplasm in the pancreas. SPLEEN: The spleen is again noted to be enlarged. Splenic and portal veins are patent. Direction of flow within these vessels cannot be assessed on CT scan. ADRENALS: Nodules in left adrenal gland again noted. Right adrenal gland on unremarkable KIDNEYS:There is a nonobstructive 6 millimeter calculus in the mid-lower pole calyx of the left kidne y. No other significant renal findings. No cysts. No solid masses in the kidneys. No hydronephros is nor hydroureter. Renal veins are patent. Left renal vein is pre aortic.. ABDOMINAL AORTA: Abdominal aorta is not enlarged. LYMPH NODES:There is no retroperitineal nor paraaortic adenopathy. ABDOMINAL WALL: There is an anterior abdominal wall umbilical hernia which contains fat and no bowel loops. Below this level there is a right para umbilical hernia sac which measures 4.3 cm wide by 2.5 cm AP by 5.6 cm craniocaudal. Does in bowel loops. There is no bowel obstruction. No free air. N o abscess. However, there is symmetrical thickening of the skin over the pannus as well as subcutane ous edema. This is starting below the level of the above described hernia sac. In addition, there i s thickening over the skin over the flanks, more so on the left side as well as subcutaneous edema nelly th flanks as well as over the back subcutaneous tissues. There is no drainable abscess in the subcut aneous fat. GI: There is no evidence of bowel obstruction, free air, nor abscess. PELVIS: GI: No evidence of appendicitis.No evidence of sigmoid diverticulitis. LYMPH NODES: There is no intrapelvic nor inguinal adenopathy. REPRODUCTIVE: There are 2 calcifications in the uterus, both measuring approximately 3-4 millimeters, probably related to small uterine fibroids. The left ovary measures slightly prominent for this age group contains a cyst measuring 2.8 x 1.5 cm. There is no free fluid in the pelvis. URINARY BLADDER: Collapsed. OSSEOUS: No significant osseous lesions. IMPRESSION: 1. There is 6 millimeter nonobstructive calculus in left kidney. No other focal renal findings. No hydronephrosis nor hydroureter. No solid renal masses. No obvious renal cysts. 2. The urinary bladder is difficult to assess because it is collapsed. 3. Cirrhotic liver with TIPS, splenomegaly, and varices. No ascites. 4. There is a 10 x 7 millimeter cystic structure in the anterior aspect of the pancreas at the pancre atic neck level. This is probably an intra pancreatic cystic neoplasm and should be further studied with MRI. The pancreatic duct is not dilated. 5. Small calcified uterine fibroids. Slightly prominent left ovary for this age group which appears to contain a cyst. This could be further studied with ultrasound. There is no free fluid in the pe lvis. 6. RADIATION DOSE DELIVERED: 3,412.78mGy.cm Total DLP DATA REPOSITORY: All CT scans at this facility are submitted to the National Radiology Data Registry (NRDR) Dose Index Registry (DIR) with the [employer] (A[employer]). RADIATION OPTIMIZATION: All CT scans at this facility use at least one of these dose optimization te chniques: automated exposure control; mA and/or kV adjustment per patient size (includes targeted exa ms where dose is matched to clinical indication); or iterative reconstruction.
== END 2021-03-17 01:48 ==
PROVIDERS: PCP Family Medicine; Visit Provider Nurse Practitioner Gerontology
DX: K74.60 Unspecified cirrhosis of liver (principal); D25.9 Leiomyoma of uterus, unspecified; N20.0 Calculus of kidney; R31.0 Gross hematuria; N32.89 Other specified disorders of bladder; K86.2 Cyst of pancreas; R16.1 Splenomegaly, not elsewhere classified; I83.90 Asymptomatic varicose veins of unspecified lower extremity; Z96.89 Presence of other specified functional implants
CPT/HCPCS: 74178; 82565; J3490

== ENCOUNTER → 2021-03-29 09:10 | Outpatient (BNVA) | payer MEDICARE, BC, SELFPAY | PROVIDERS: PCP Family Medicine; Referring Provider Family Medicine; Visit Provider Nurse Practitioner Gerontology | DX: R31.9 Hematuria, unspecified (principal); Z71.2 Person consulting for explanation of examination or test findings | CPT/HCPCS: 99443 ==

== ENCOUNTER → 2021-04-14 10:03 | Outpatient (BNVA) | payer MEDICARE, BC, SELFPAY | PROVIDERS: PCP Family Medicine; Referring Provider Family Medicine; Visit Provider Nurse Practitioner Gerontology | DX: R31.29 Other microscopic hematuria (principal) | CPT/HCPCS: 99214 ==

== ENCOUNTER 2021-04-17 14:56 | Inpatient (IN) | payer MEDICARE, BC, SELFPAY ==
[2021-04-17] VITALS (22 sets, daily range): BP systolic 99–148; BP diastolic 37–72; PULSE 84–111; RESP 17–20; TEMP 36.5–39.3; O2SAT 89–97
--- NOTE | 2021-04-17 15:56 | W.ED.GENAD ---
Discharge Plan Disposition Patient Disposition: [facility] INPATIENT Condition: Stable Discharge Details Clinical Impression: Cellulitis of left leg, Wound of foot, Fever, Sepsis Admit Date/Time: 04/17/21 18:51 Admit Provider: Sabino Hooper Attending Provider: Sabino Hooper Primary Care Provider: Malu Baron ED Provider: Lola Osuna Discharge Data Discharge Date/Time-TO BE ENTERED AT DEPARTURE: 04/17/21 20:25 Medical Decision Making 66-year-old female with a history of diabetes, chronic lower extremity lymphedema, elephantitis, recurrent lower extremity cellulitis presents for altered mental status and worsening left leg redness and swelling and worsening wound to the left foot over the last several weeks. Oral temp 99. Heart rate 110. Patient is somnolent and confused and does not answer questions. She does follow some commands. Foul-smelling wound to the left dorsal foot with yellow discharge. She has chronic indurated skin of bilateral extremities consistent with lymphedema. Concerned about acute cellulitis of the left foot and leg. Will place an IV, screening labs, bolus IV fluids, CT left lower extremity. Will order a dose of IV vancomycin and plan for admission. Labs reviewed. Lactate 4.6. Normal white blood cell count. ESR 14. CRP 6.43. CT notes left leg cellulitis but no evidence of abscess. Able to obtain a rectal temp which was 102.7. Order dose of IV Tylenol and continue IV fluid hydration. Daughter was notified of results and plan. Patient mental status began to improve after fluids and antipyretics. Case discussed with hospitalist who accepts patient for admission. Medical Records Medical records reviewed: Yes I reviewed the patient's medical records. Imaging Data Radiologic Study: Radiologist's impression: CT LOWER EXTREMITY LT W CLINICAL HISTORY: Wound dorsal foot, r/o abscess vs cellulitis TECHNIQUE: COMPARISON: No exams were available for comparison FINDINGS: CT examination of the foot was performed with intravenous infusion of 100 cc of Omnipaque 350. There are degenerative changes noted involving the forefoot and midfoot. 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 There is a prominent plantar fascia tear attachment spur of the calcaneus. There is no focal abscess identified in the foot. There is no CT evidence of osteomyelitis or other suggestion of bony destruction or fracture. IMPRESSION: No gross abscess identified. If there is a high clinical suspicion of abscess or osteomyelitis additional evaluation with MR may be considered. CT HEAD WO CLINICAL HISTORY: altered mental status. TECHNIQUE: Imaging Protocol: Axial computed tomography images with coronal and sagittal reformatted images were created and reviewed COMPARISON: No exams were available for comparison FINDINGS: There is moderate generalized cerebral atrophy. No evidence of acute intracranial hemorrhage, mass effect, or midline shift. The orbital structures are unremarkable. The temporal bone structures appear intact. Calvarium: Normal. Visualized Paranasal sinuses/Mastoids: Clear. IMPRESSION: No evidence of acute intracranial process. Lab Data Lab results reviewed: Yes I reviewed the patient's lab results. HPI General Mode of arrival: ambulatory. Date/Time Provider Initiated Documentation: 04/17/21 15:03. Limitations to Documentation: no limitations. Information obtained by: patient. HPI Narrative: Patient is a 66-year-old female with a history of obesity, chronic bilateral lower extremity lymphedema, elephantiasis, hypertension, hyperlipidemia, pulmonary edema presents for altered mental status and concern for infection in her left foot. Patient is confused and somnolent and unable to answer questions. Discussed with daughter over the phone and she states that patient left leg cellulitis and left foot wound has never fully healed since her admission here in December. She states over the past few weeks and specifically over the past few days the wound on her left foot has worsened. She states today she seemed more confused which is not her baseline. She is normally alert and oriented x3. Related Data Home Medications Medication Instructions Recorded Confirmed zinc sulfate 220 mg PO DAILY #90 tab-cap 01/10/17 04/17/21 pen needle, diabetic [BD #180 12/18/17 04/14/21 Ultra-Fine Orig Pen Needle] ferrous sulfate 325 mg (65 mg 325 mg PO DAILY tab 06/11/18 04/17/21 iron) tablet blood sugar diagnostic #300 strip 09/13/18 04/14/21 pantoprazole 40 mg tablet,delayed 40 mg PO DAILY #180 tab 03/02/20 04/17/21 release amlodipine 5 mg tablet 5 mg PO DAILY #90 tab 04/21/20 04/17/21 ammonium lactate 12 % lotion 1 applic TOPICAL BID 06/08/20 04/17/21 triamcinolone acetonide 0.1 % 1 applic TP QID #80 gm 07/12/20 04/17/21 topical cream ondansetron HCl 4 mg tablet 4 mg PO DAILY PRN #90 tab-cap 07/29/20 04/17/21 fluocinonide 1 applic TOPICAL DAILY 08/07/20 04/17/21 mupirocin 0 applic TOPICAL DAILY 08/07/20 04/17/21 ascorbic acid (vitamin C) [Vitamin 500 mg PO DAILY #30 tab 08/10/20 04/17/21 C] rifaximin 550 mg tablet 550 mg PO BID #180 tab 10/05/20 04/17/21 sucralfate 1 gram tablet 1 g PO AC & HS #360 tab 10/05/20 04/17/21 lactulose 20 gram/30 mL oral 10 g PO TID #3000 ml 11/18/20 04/17/21 solution pregabalin 100 mg capsule 100 mg PO TID #270 cap 11/24/20 04/17/21 furosemide 20 mg tablet See Rx Instructions PO DAILY 01/26/21 04/17/21 oxycodone 5 mg tablet 10 mg PO QHS PRN #30 tab MDD 2 04/05/21 04/17/21 spironolactone 50 mg tablet 50 mg PO DAILY #90 tab 04/12/21 04/17/21 Previous Rx's Medication Instructions Recorded pen needle, diabetic [BD #180 12/18/17 Ultra-Fine Orig Pen Needle] blood sugar diagnostic #300 strip 09/13/18 pantoprazole 40 mg tablet,delayed 40 mg PO DAILY #180 tab 03/02/20 release amlodipine 5 mg tablet 5 mg PO DAILY #90 tab 04/21/20 triamcinolone acetonide 0.1 % 1 applic TP QID #80 gm 07/12/20 topical cream ondansetron HCl 4 mg tablet 4 mg PO DAILY PRN #90 tab-cap 07/29/20 ascorbic acid (vitamin C) [Vitamin 500 mg PO DAILY #30 tab 08/10/20 C] rifaximin 550 mg tablet 550 mg PO BID #180 tab 10/05/20 sucralfate 1 gram tablet 1 g PO AC & HS #360 tab 10/05/20 lactulose 20 gram/30 mL oral 10 g PO TID #3000 ml 11/18/20 solution pregabalin 100 mg capsule 100 mg PO TID #270 cap 11/24/20 oxycodone 5 mg tablet 10 mg PO QHS PRN #30 tab MDD 2 04/05/21 spironolactone 50 mg tablet 50 mg PO DAILY #90 tab 04/12/21 Allergies Allergy/AdvReac Type Severity Reaction Status Date / Time gabapentin Allergy Intermediate Local Unverified 04/05/21 14:50 reaction on skin lisinopril AdvReac Itching Verified 04/05/21 14:50 General Stated Complaint: Cellulitis JÚNIOR: 2 Review of Systems Unobtainable due to mental status [facility] Medical History (Updated 04/20/21 @ 05:34 by Lola Osuna DO) Abdominal pain, chronic, epigastric (03/23/16) Advance directive on file Annual physical exam (02/22/18) Aortic stenosis, severe Bacteremia Bacteremia due to group B Streptococcus Bleeding esophageal varices (03/10/16) Breast mass CAP (community acquired pneumonia) Carpal tunnel syndrome right; s/p release Cellulitis Cellulitis Cervical disc disorder with myelopathy (09/04/12) Chronic epigastric pain (03/23/16) Complicated UTI (urinary tract infection) Diabetic foot infection Discharge planning issues DVT femoral (deep venous thrombosis) with thrombophlebitis DVT prophylaxis DVT prophylaxis Edema, unspecified 06/28/16 B/L Elevated troponin Elevation of level of transaminase and lactic acid dehydrogenase (LDH) Epistaxis Esophageal varices with hemorrhage Fever Fever, unknown origin 04/14/16 Fluid overload Foot pain GI bleed Gram-positive bacteremia Hepatic encephalopathy (03/10/16) Hyperlipidemia (09/04/12) Incisional hernia (01/15/15) Increased body mass index Mild epistaxis 12/21/15 Nausea Pancytopenia Physical deconditioning Pleural effusion Pneumonia Portal hypertension Sepsis Sepsis Sepsis syndrome Thyroid nodule right; 2008-[facility] [place]; 2.3cm nodule; neg. biopsy Uninodular goiter Tubular adenoma (04/12/13) Surgical History Colonoscopy - IV Sedation (04/12/13) DR. Bhumika CLAYTON Open Carpal Tunnel release RIGHT PROCEDURES OTHER CERVICAL FUS ANT discectomy 2008 [facility] [place]; NEGATIVE THYROID BX S/P carpal tunnel release right S/P cervical spinal fusion anterior; discectomy S/P cervical spinal fusion anterior;discectomy S/P tonsillectomy Status post biopsy of thyroid gland 09/18/08 neg Status post carpal tunnel release Status post cervical spinal arthrodesis Status post tonsillectomy Tonsillectomy Family History Mother Pancreatic cancer Father Diabetes Essential hypertension Stroke Sister Heart disease Brother Bone cancer Liver cancer Maternal Grandfather No problems noted. Paternal Grandfather No problems noted. Maternal Grandmother , OLD AGE at age 89. No problems noted. Paternal Grandmother Breast cancer Sister Diabetes Colon cancer Rectal cancer Sister Diabetes Son No problems noted. Son No problems noted. Daughter No problems noted. Daughter Alcohol abuse Asthma Social History Smoking/Tobacco Use Status: Former Tobacco Use Tobacco: How many years used: 2 Second Hand Exposure: Yes Smoking risk assessment performed?: Yes Alcohol Intake: never Drug use: Never Counseling given: No Household members: spouse and children Housing: house Communication Needs: None Do you need help understanding health information?: Rarely Pets and animals: Yes Pets and animals: dog(s) Sexually active: No Do you think of yourself as: straight/heterosexual Current gender identity: female What is your relationship status?: How often do you talk on the phone with friends or family?: three or more times per week How often do you get together with friends or relatives?: once per week How often do you attend faith or baptism services?: 1-3 times per year Do you belong to any clubs or organized social groups?: no Panel score (0-1 are the most socially isolated patients): 2 What type of physical activity do you participate in: decline to answer Duration: < 15 minutes/day Frequency: 1-2 times per week Lyubov/Tenriism: Druze Special lyubov needs: No Seatbelt use: always Helmet use: No Drive intox or ride w/intox interstate bus driver: No Do you feel safe at home: Yes Do you feel safe in your relationship?: Yes Exam Const General: cooperative, no acute distress and ill appearing chronically Orientation: other (somnolent, unable to answer questions) [facility] Head: normal to inspection Face and sinus: normal facial exam Eyes General: appearance normal, both eyes and all related structures Pupils: PERRL EOM: EOM intact bilaterally Neck Neck: normal visual inspection and No submandibular swelling Lymphatic: no lymphadenopathy noted Chest Chest: normal inspection of the chest and no tenderness Resp Effort & Inspection: normal respiratory effort and able to speak in complete sentences Auscultation: clear to auscultation bilaterally Cardio Rate: regular rate Rhythm: regular rhythm GI Inspection: normal to inspection Palpation: soft, not firm, not rigid and nontender Auscultation: normal bowel sounds Back/Spine/Pelvis Thoracic/Lumbar Spine: thoracic and lumbar spine normal to inspection Pelvis: no pain with anterior-posterior compression Skin General skin exam: no rashes or lesions noted Neuro General: patient alert, patient awake and patient oriented x3 Cognition: normal cognition Speech: speech normal Motor: muscle tone normal throughout Sensory Exam: no sensory deficits noted Extrem Other: Chronically indurated skin of b/l LE c/w elephantiasis, lymphedema Macerated tissue on dorsal aspect of distal L foot Psych Appearance: grossly normal Mental Status: mental status grossly normal Speech and Movement: speech and movement normal Affect: normal affect Course Vital Signs Vital signs: Vital Signs Temperature 99.0 F 04/17/21 15:39 Pulse 110 H 04/17/21 15:39 Blood Pressure 131/40 L 04/17/21 15:39 Pulse Oximetry 97 04/17/21 15:39 Temperature 99.0 F 04/17/21 15:39 Temperature Source Oral 04/17/21 15:39 Pulse 110 H 04/17/21 15:39 Blood Pressure 131/40 L 04/17/21 15:39 Blood Pressure Position Supine 04/17/21 15:39 Pulse Oximetry 97 04/17/21 15:39 Oxygen Delivery Method Room Air 04/17/21 15:39 Oxygen Flow Rate 0 04/17/21 15:39 Lab/Test Results Lab/Test Results: 04/17/21 15:45 Blood Blood Culture - Pending 04/17/21 15:46 Blood Blood Culture - Pending
--- NOTE | 2021-04-17 16:15 | DI.CT_ITS ---
Exam(s) CT LOWER EXTREMITY LT W EXAM: CT LOWER EXTREMITY LT W CLINICAL HISTORY: Wound dorsal foot, r/o abscess vs cellulitis TECHNIQUE: COMPARISON: No exams were available for comparison FINDINGS: CT examination of the foot was performed with intravenous infusion of 100 cc of Omnipaque 350. There are degenerative changes noted involving the forefoot and midfoot. There is an apparent calcaneal l ipoma. There is a prominent plantar fascia tear attachment spur of the calcaneus. There is no focal abscess identified in the foot. There is no CT evidence of osteomyelitis or other suggestion of bony destruction or fracture. IMPRESSION: No gross abscess identified. If there is a high clinical suspicion of abscess or osteomyelitis addit ional evaluation with MR may be considered. RADIATION DOSE DELIVERED: 263.49mGy.cm Total DLP CTDIvol RADIATION OPTIMIZATION: All CT scans at this facility use at least one of these dose optimization te chniques: automated exposure control; mA and/or kV adjustment per patient size (includes targeted exa ms where dose is matched to clinical indication); or iterative reconstruction.
[2021-04-17 17:50] LABS: Abs Immature Grans 0.05 10^3/uL (0.0-0.06); Absolute Basophil Count 0.05 10^3/uL (0.0-0.2); Absolute Eosinophil Count 0.01 10^3/uL (0.0-0.7); Absolute Lymphocyte Count 0.48 10^3/uL (1.2-3.4); Absolute Neutrophil Count 9.21 10^3/uL (1.2-6.7); Basophils % 0.5; Eosinophils % 0.1; HCT 35.8 % (36.0-46.0); Immature Grans % 0.5; Lymphocytes % 4.8; MCH 30.8 pg (27.0-33.0); MCHC 33.5 % (32.0-36.0); MCV 91.8 fL (80-95); MPV 10.4 fL (8.0-11.0); Neutrophils % 92.1; Nucleated RBC 0 %; RDW 14.8 % (11.7-14.6); RDW-SD 49.1 fL
[2021-04-17 17:52] LABS: Platelet Count 71 10^3/uL (130-400)
[2021-04-17 17:53] LABS: ESR 14 mm/hr (0-30)
[2021-04-17 17:58] LABS: Lactate 4.6 mmol/L (0.6-1.4)
[2021-04-17] MEDS: Omnipaque 350 MG/ML 100 ML BTL IJ (18:14)
[2021-04-17] MEDS: Normal Saline - Diluent 50 ML VIAL IV (18:14)
[2021-04-17 18:15] LABS: ALT 28 U/L (14-59); AST 39 U/L (15-37); Albumin 2.3 g/dL (3.4-5.0); Alkaline Phosphatase 151 U/L (46-116); Anion Gap 10.5 mmol/L (3-11); BUN 21 mg/dL (7-18); Bilirubin, Total 5.8 mg/dL (0.2-1.0); C-Reactive Protein 6.43 mg/dL (0.0-0.3); CO2 27.5 mmol/L (21.0-32.0); CREATININE 1.1 mg/dL (0.55-1.02); Calcium 8.6 mg/dL (8.5-10.1); Chloride 104 mmol/L (98-107); Estimated GFR 50.01 (mL/min/1.73m2); Glucose 167 mg/dL (74-106); Potassium 3.7 mmol/L (3.5-5.1); Sodium 142 mmol/L (136-145); Total Protein 5.9 g/dL (6.4-8.2)
--- NOTE | 2021-04-17 18:30 | DI.CT_ITS ---
Exam(s) CT HEAD WO EXAM: CT HEAD WO CLINICAL HISTORY: altered mental status. TECHNIQUE: Imaging Protocol: Axial computed tomography images with coronal and sagittal reformatted images were created and reviewed COMPARISON: No exams were available for comparison FINDINGS: There is moderate generalized cerebral atrophy. No evidence of acute intracranial hemorrhage, mass effect, or midline shift. The orbital structures are unremarkable. The temporal bone structures appear intact. Calvarium: Normal. Visualized Paranasal sinuses/Mastoids: Clear. IMPRESSION: No evidence of acute intracranial process. RADIATION DOSE DELIVERED: 880.47mGy.cm Total DLP 880.47mGy.cm Total DLP CTDIvol DATA REPOSITORY: All CT scans at this facility are submitted to the National Radiology Data Registry (NRDR) Dose Index Registry (DIR) with the [employer] ([employer]). RADIATION OPTIMIZATION: All CT scans at this facility use at least one of these dose optimization te chniques: automated exposure control; mA and/or kV adjustment per patient size (includes targeted exa ms where dose is matched to clinical indication); or iterative reconstruction.
--- NOTE | 2021-04-17 18:32 | DI.VRAD_ITS ---
PROCEDURE INFORMATION: Exam: CT Left Lower Extremity With Contrast Exam date and time: 04/17/2021 4:31 PM Age: 66 years old Clinical indication: Other: Wound dorsal foot, R/O abcess vs cellulitis TECHNIQUE: Imaging protocol: CT of the Left lower extremity with intravenous contrast was performed. Contrast material: OMNIPAQUE 350; Contrast volume: 100 ml; Contrast route: INTRAVENOUS (IV); COMPARISON: MR lower extremity LT wo 09/07/2018 8:44 AM FINDINGS: Bones/joints: Calcaneal lipoma measuring 3.6 cm. Large plantar heel spur measuring 16 mm. No evidence of fracture. Midfoot arthritis changes talar navicular naviculocuneiform and cuneiform metatarsal articulations. Cystic degenerative changes present in cuneiform. No evidence of bone destruction or lysis. Soft tissues: Subcutaneous edema/cellulitis. No air present within the soft tissues. No focal fluid collection. IMPRESSION: 1. No evidence of osteomyelitis. 2. Calcaneal lipoma. 3. Subcutaneous edema/cellulitis. No evidence of soft tissue abscess. Dictated and Authenticated by: Carlos Krishnamurthy MD. Ordering:GRACE Davila MD
[2021-04-17] MEDS: ACETAMINOPHEN 1,000 MG/100 ML BTL 400 MG IVPB (19:05)
[2021-04-17] MEDS: VANCOMYCIN 1,500 MG in Normal Saline 250 ML 166.6666 MG IVPB (19:06)
[2021-04-17] MEDS: Normal Saline 500 ML IV (19:06)
--- NOTE | 2021-04-17 19:07 | DI.VRAD_ITS ---
PROCEDURE INFORMATION: Exam: CT Head Without Contrast Exam date and time: 04/17/2021 6:40 PM Age: 66 years old Clinical indication: Altered mental status/memory loss TECHNIQUE: Imaging protocol: Computed tomography of the head without contrast. COMPARISON: No relevant prior studies available. FINDINGS: Brain: Normal. No hemorrhage. Unremarkable white matter. No mass effect. Cerebral ventricles: There is mild, diffuse involutional change with mild associated ventriculomegaly. Paranasal sinuses: Visualized sinuses are unremarkable. No fluid levels. Mastoid air cells: Visualized mastoid air cells are well aerated. Bones/joints: Unremarkable. No acute fracture. Soft tissues: Unremarkable. IMPRESSION: There is mild, diffuse involutional change with mild associated ventriculomegaly. No acute or focal brain abnormality is seen. Dictated and Authenticated by: Fausto Little MD. Ordering:GRACE Davila MD
[2021-04-17 19:28] LABS: Source Nasal/Nares
--- NOTE | 2021-04-17 19:56 | HPE_ITS ---
Date of service: 04/17/21 Time of Service: 19:57 Assessment and Plan Assessment and plan (1) Pancreatic mass: Status: Acute Assessment and plan: [place] [facility] [place] [facility] in December d/t DVT in left greater saphenous vein from the knee to within 1.7cm of the junction of the greater saphenous vein and common femoral vein. Will need to inquire as to whether or not an IVC filter was placed; pt unable to offer any information at this time d/t confusion. Also inquire with daughter and with [facility] [place] regarding their w/u of the mass. No DVT prophylaxis with anticoagulants d/t cirrhosis, thrombocytopenia, esophageal varices. (2) Thrombocytopenia: Status: Chronic Assessment and plan: Chronic. Related to cirrhosis. (3) Diabetes mellitus: Status: Chronic Assessment and plan: Diet controlled. A1c of 5.1 in November of this year. Recheck A1c. Q6H glucose monitoring while confused but change to ACHS if found to be eating routinely. Sliding scale insulin correction dosing. Qualifiers: Diabetes mellitus complication status: without complication Diabetes mellitus shelter insulin use: without shelter use Diabetes mellitus type: type 2 Qualified Code(s): E11.9 - Type 2 diabetes mellitus without complications (4) Cirrhosis: Status: Chronic Assessment and plan: Cont Rifaximin, lactulose and spironolactone. Bilirubin higher than at previous checks. Monitor. Qualifiers: Hepatic cirrhosis type: other cirrhosis Qualified Code(s): K74.69 - Other cirrhosis of liver (5) Elephantiasis nostra verrucosa: Status: Acute Assessment and plan: Cont lasix. Elevate BLE's routinely. (6) Cellulitis: Status: Acute Assessment and plan: Admitted in December for same. LLE and foot involved. Dorsum of left foot with fissures/lesions that have a foul odor. Wound care consulted. Bacteremia d/t Serratia Marsescens at previous admission. Will cover with Vancomycin and Levaquin. Blood cultures obtained in the ED. (7) Sepsis: Status: Acute Assessment and plan: Tachycardia, relative hypotension and elevated lactate. Secondary to cellulitis and ulceration/wound of dorsum of left foot. Antibiotic coverage with Vancomycin and Levaquin. IV fluids given in the ED; 1500ml NS Cont LR at 100ml/hr. Blood cultures obtained and pending. History of Present Illness History of Present Illness Chief Complaint: Confusion Narrative: This is a 66 yo female with a PMH of chronic lympedema of BLEs, DM2, HTN, recurrent LE cellulitis, cirrhosis, thrombocytopenia, CHF, hematuria, aortic stenosis. She was last hospitalized at [facility] in December of this year for cellulitis/bacteremia. She presented after her daughter noted an alteration in her mental status / c onfusion. She also endorsed ongoing redness of the LLE/foot with an ulceration on the dorsal aspect of the left foot. In the ED she was noted to be confused and wasn't answering questions. Her oral temp was 99F with a HR of 110. Initial BP 131/40. SBP maría elena in the ED of 99. The wound on the dorsum of the left foot was foul-smelling with a yellow discharge. Her WBC count was not elevated; 10.00. VBG lactate was eolevated at 4.6. Lytes normal. BUN 21. Creatinine 1.1. Glucose 167. Total bili 5.8 (4.4 on 01/03/21). Vancomyciin given in the ED. Review of Systems All systems reviewed & are unremarkable except as noted in HPI and below [facility] Medical History (Updated 04/17/21 @ 20:57 by Lola Osuna DO) Abdominal pain, chronic, epigastric (03/23/16) Advance directive on file Annual physical exam (02/22/18) Aortic stenosis, severe Bacteremia Bacteremia due to group B Streptococcus Bleeding esophageal varices (03/10/16) Breast mass CAP (community acquired pneumonia) Carpal tunnel syndrome right; s/p release Cellulitis Cellulitis Cervical disc disorder with myelopathy (09/04/12) Chronic epigastric pain (03/23/16) Complicated UTI (urinary tract infection) Diabetic foot infection Discharge planning issues DVT femoral (deep venous thrombosis) with thrombophlebitis DVT prophylaxis DVT prophylaxis Edema, unspecified 06/28/16 B/L Elevated troponin Elevation of level of transaminase and lactic acid dehydrogenase (LDH) Epistaxis Esophageal varices with hemorrhage Fever Fever, unknown origin 04/14/16 Fluid overload Foot pain GI bleed Gram-positive bacteremia Hepatic encephalopathy (03/10/16) Hyperlipidemia (09/04/12) Incisional hernia (01/15/15) Increased body mass index Mild epistaxis 12/21/15 Nausea Pancytopenia Physical deconditioning Pleural effusion Pneumonia Portal hypertension Sepsis Sepsis Sepsis syndrome Thyroid nodule right; [place] [place] 2.3cm nodule; neg. biopsy Uninodular goiter Tubular adenoma (04/12/13) Surgical History Colonoscopy - IV Sedation (04/12/13) DR. Bhumika CLAYTON Open Carpal Tunnel release RIGHT PROCEDURES OTHER CERVICAL FUS ANT discectomy [place] [facility] [place] NEGATIVE THYROID BX S/P carpal tunnel release right S/P cervical spinal fusion anterior; discectomy S/P cervical spinal fusion anterior;discectomy S/P tonsillectomy Status post biopsy of thyroid gland 09/18/08 neg Status post carpal tunnel release Status post cervical spinal arthrodesis Status post tonsillectomy Tonsillectomy Family History Mother Pancreatic cancer Father Diabetes Essential hypertension Stroke Sister Heart disease Brother Bone cancer Liver cancer Maternal Grandfather No problems noted. Paternal Grandfather No problems noted. Maternal Grandmother , OLD AGE at age 89. No problems noted. Paternal Grandmother Breast cancer Sister Diabetes Colon cancer Rectal cancer Sister Diabetes Son No problems noted. Son No problems noted. Daughter No problems noted. Daughter Alcohol abuse Asthma Social History Smoking/Tobacco Use Status: Former Tobacco Use Tobacco: How many years used: 2 Second Hand Exposure: Yes Smoking risk assessment performed?: Yes Alcohol Intake: never Drug use: Never Counseling given: No Household members: spouse and children Housing: house Communication Needs: None Do you need help understanding health information?: Rarely Pets and animals: Yes Pets and animals: dog(s) Sexually active: No Do you think of yourself as: straight/heterosexual Current gender identity: female What is your relationship status?: How often do you talk on the phone with friends or family?: three or more times per week How often do you get together with friends or relatives?: once per week How often do you attend rastafarian or nondenominational services?: 1-3 times per year Do you belong to any clubs or organized social groups?: no Panel score (0-1 are the most socially isolated patients): 2 What type of physical activity do you participate in: decline to answer Duration: < 15 minutes/day Frequency: 1-2 times per week Lyubov/Alevism: Quaker Special lyubov needs: No Seatbelt use: always Helmet use: No Drive intox or ride w/intox electric train driver: No Do you feel safe at home: Yes Do you feel safe in your relationship?: Yes Meds Allergies and Home Medications Allergies Allergy/AdvReac Type Severity Reaction Status Date / Time gabapentin Allergy Intermediate Local Unverified 04/05/21 14:50 reaction on skin lisinopril AdvReac Itching Verified 04/05/21 14:50 Home Medications Medication Instructions Recorded Confirmed Type zinc sulfate 220 mg PO DAILY #90 tab-cap 01/10/17 04/17/21 History pen needle, diabetic [BD #180 12/18/17 04/14/21 Rx Ultra-Fine Orig Pen Needle] ferrous sulfate 325 mg (65 mg 325 mg PO DAILY tab 06/11/18 04/17/21 History iron) tablet blood sugar diagnostic #300 strip 09/13/18 04/14/21 Rx pantoprazole 40 mg tablet,delayed 40 mg PO DAILY #180 tab 03/02/20 04/17/21 Rx release amlodipine 5 mg tablet 5 mg PO DAILY #90 tab 04/21/20 04/17/21 Rx ammonium lactate 12 % lotion 1 applic TOPICAL BID 06/08/20 04/17/21 History triamcinolone acetonide 0.1 % 1 applic TP QID #80 gm 07/12/20 04/17/21 Rx topical cream ondansetron HCl 4 mg tablet 4 mg PO DAILY PRN #90 tab-cap 07/29/20 04/17/21 Rx fluocinonide 1 applic TOPICAL DAILY 08/07/20 04/17/21 History mupirocin 0 applic TOPICAL DAILY 08/07/20 04/17/21 History ascorbic acid (vitamin C) [Vitamin 500 mg PO DAILY #30 tab 08/10/20 04/17/21 Rx C] rifaximin 550 mg tablet 550 mg PO BID #180 tab 10/05/20 04/17/21 Rx sucralfate 1 gram tablet 1 g PO AC & HS #360 tab 10/05/20 04/17/21 Rx lactulose 20 gram/30 mL oral 10 g PO TID #3000 ml 11/18/20 04/17/21 Rx solution pregabalin 100 mg capsule 100 mg PO TID #270 cap 11/24/20 04/17/21 Rx furosemide 20 mg tablet See Rx Instructions PO DAILY 01/26/21 04/17/21 History oxycodone 5 mg tablet 10 mg PO QHS PRN #30 tab MDD 2 04/05/21 04/17/21 Rx spironolactone 50 mg tablet 50 mg PO DAILY #90 tab 04/12/21 04/17/21 Rx Exam Narrative Exam Narrative: Patient is lying supine, asleep and in NAD. Opens eyes briefly when spoken to. Const Nutritional Appearance: obese Orientation: other (Lethargic) [facility] Head: normocephalic and atraumatic Eyes General: appearance normal, both eyes and all related structures Sclera: sclerae normal Resp Effort & Inspection: normal respiratory effort Auscultation: clear to auscultation bilaterally Cardio Rate: regular rate Rhythm: regular rhythm Heart Sounds: S1 normal, S2 normal and murmur systolic GI Palpation: soft and nontender Auscultation: normal bowel sounds Skin Rashes: no rashes Full body images: 1. Darkened skin discoloration with thickened epidermis. LLE with generalized erythema. Dorsum of left foot with horizontal fissures. + odor of left foot. Neuro General: not awake, moves all extremities and other (Lethargic. Opens eyes briefly and nods.) Extrem General: no calf tenderness and edema Laterality: bilateral (Lympedema of BLEs into feet.) Results Labs Result diagrams: 04/17/21 17:33 04/17/21 17:33 Labs: Laboratory Results - last 24 hr 04/17/21 04/17/21 04/17/21 17:33 17:33 17:33 WBC RBC Hgb Hct MCV MCH MCHC RDW Plt Count MPV Immature Gran % Neutrophils % Lymphocytes % Monocytes % Eosinophils % Basophils % Nucleated RBC % Absolute Neutrophils Absolute Lymphocytes Absolute Monocytes Absolute Eosinophils Absolute Basophils ESR 14 VBG Lactate 4.6 H* Sodium 142 Potassium 3.7 Chloride 104 Carbon Dioxide 27.5 Anion Gap 10.5 BUN 21 H Creatinine 1.1 H Estimated GFR/1.73 m2 50.01 Glucose 167 H Calcium 8.6 Total Bilirubin 5.8 H AST 39 H ALT 28 Alkaline Phosphatase 151 H C-Reactive Protein 6.43 H Total Protein 5.9 L Albumin 2.3 L COVID-19 Source 04/17/21 04/17/21 17:33 19:20 WBC 10.00 RBC 3.90 L Hgb 12.0 Hct 35.8 L MCV 91.8 MCH 30.8 MCHC 33.5 RDW 14.8 H Plt Count 71 L MPV 10.4 Immature Gran % 0.5 Neutrophils % 92.1 Lymphocytes % 4.8 Monocytes % 2.0 Eosinophils % 0.1 Basophils % 0.5 Nucleated RBC % 0 Absolute Neutrophils 9.21 H Absolute Lymphocytes 0.48 L Absolute Monocytes 0.20 Absolute Eosinophils 0.01 Absolute Basophils 0.05 ESR VBG Lactate Sodium Potassium Chloride Carbon Dioxide Anion Gap BUN Creatinine Estimated GFR/1.73 m2 Glucose Calcium Total Bilirubin AST ALT Alkaline Phosphatase C-Reactive Protein Total Protein Albumin COVID-19 Source Nasal/Nares Last Vital Signs Temp 39.3 C H 04/17/21 18:41 Pulse 111 H 04/17/21 19:23 BP 130/38 L 04/17/21 19:23 Pulse Ox 94 04/17/21 19:23
[2021-04-17 20:22] LABS: COVID-19 PCR Negative (Negative)
[2021-04-17 20:51] LABS: Hemoglobin A1C 5.6 % (<5.7)
[2021-04-17] MEDS: Rifaximin 550 MG TAB PO (21:59)
[2021-04-17] MEDS: Sucralfate 1 GM TAB PO (21:59)
[2021-04-17] MEDS: Lactulose 20 GM/30 ML CUP 10 GM PO (21:59)
[2021-04-17] MEDS: levoFLOXacin 750 MG/150 ML BAG 100 MG IVPB (21:59)
[2021-04-17] MEDS: Pregabalin 100 MG CAP PO (21:59)
[2021-04-17] MEDS: Lactated Ringers 1,000 ML 100 ML IV (22:00)
[2021-04-18 07:34] LABS: HCT 34.2 % (36.0-46.0); HGB 11.5 g/dL (11.2-15.7); MCHC 33.6 % (32.0-36.0); MCV 92.2 fL (80-95); MPV 10.5 fL (8.0-11.0); Nucleated RBC 0 %; RBC 3.71 10^6/uL (3.93-5.22); RDW 14.5 % (11.7-14.6); RDW-SD 48.6 fL
[2021-04-18 08:03] VITALS: BP 106/63; PULSE 85; RESP 18; TEMP 36.6; O2SAT 97
[2021-04-18] MEDS: Lactulose 20 GM/30 ML CUP 10 GM PO ×2 (08:03→13:26)
[2021-04-18] MEDS: FUROSEMIDE 40 MG, FUROSEMIDE 20 MG 60 MG PO (08:04)
[2021-04-18] MEDS: Rifaximin 550 MG TAB PO ×2 (08:04→19:39)
[2021-04-18] MEDS: Sucralfate 1 GM TAB PO ×4 (08:04→23:03)
[2021-04-18] MEDS: Pantoprazole 40 MG TABCR PO (08:04)
[2021-04-18] MEDS: amLODIPine 5 MG TAB PO (08:04)
[2021-04-18] MEDS: Zinc Sulfate 220 MG TAB PO (08:04)
[2021-04-18] MEDS: Spironolactone 50 MG TAB PO (08:04)
[2021-04-18] MEDS: Ascorbic Acid 500 MG TAB PO (08:04)
[2021-04-18 08:12] LABS: Absolute Lymphocyte Count 0.72 10^3/uL (1.2-3.4); Absolute Neutrophil Count 10.68 10^3/uL (1.2-6.7); Bands % 11; Diff Comment Manual Differential; Platelet Count 63 10^3/uL (130-400); RBC Morphology Normal
[2021-04-18 08:16] LABS: ALT 35 U/L (14-59); AST 105 U/L (15-37); Alkaline Phosphatase 123 U/L (46-116); Anion Gap 9.9 mmol/L (3-11); BUN 29 mg/dL (7-18); Bilirubin, Total 4.3 mg/dL (0.2-1.0); CO2 25.1 mmol/L (21.0-32.0); CREATININE 1.3 mg/dL (0.55-1.02); Calcium 8.4 mg/dL (8.5-10.1); Chloride 104 mmol/L (98-107); Estimated GFR 41.24 (mL/min/1.73m2); Glucose 232 mg/dL (74-106); Potassium 3.8 mmol/L (3.5-5.1); Sodium 139 mmol/L (136-145); Total Protein 5.5 g/dL (6.4-8.2)
[2021-04-18 08:24] LABS: Magnesium 1.6 mg/dL (1.8-2.4)
[2021-04-18] MEDS: Pregabalin 50 MG CAP 100 MG PO ×3 (08:31→19:39)
[2021-04-18 09:02] LABS: Lactate 5.4 mmol/L (0.6-1.4)
[2021-04-18] MEDS: MAGNESIUM SULFATE 4 GM/100 ML BAG IVPB (09:28)
[2021-04-18] MEDS: Insulin Aspart 300 UNITS/3 ML PEN SC ×3 (09:28→17:15)
[2021-04-18 09:43] LABS: Ammonia 54 umol/L (11-32)
[2021-04-18] MEDS: Normal Saline 1,000 ML 1000 ML IV ×2 (09:53→11:01)
[2021-04-18] MEDS: PIPERACILLIN/TAZO 4.5 GM in Normal Saline 100 ML IVPB (10:16)
[2021-04-18] MEDS: Lactulose 20 GM/30 ML CUP 30 GM PO (10:29)
[2021-04-18] MEDS: VANCOMYCIN/WATER (PEG) 1 GM/200 ML BAG IV (11:01)
[2021-04-18] MEDS: oxyCODONE 5 MG TAB 2.5 MG PO ×2 (11:35→19:40)
[2021-04-18 12:04] VITALS: BP 109/61; PULSE 90; RESP 18; TEMP 36.7; O2SAT 96
[2021-04-18] MEDS: Furosemide 20 MG TAB PO (13:26)
[2021-04-18] MEDS: Normal Saline Flush 10 ML SYR IVP ×3 (13:40→23:03)
[2021-04-18 14:20] LABS: Lactate 3.5 mmol/L (0.6-1.4)
[2021-04-18 15:39] VITALS: BP 120/68; PULSE 87; RESP 18; TEMP 37.3; O2SAT 95
--- NOTE | 2021-04-18 16:09 | PGE_ITS ---
Date of Service Date of service: 04/18/21 Time of Service: 10:30 Assessment and Plan Assessment and plan (1) Sepsis: Start date: 04/18/21 Start time: 10:30 Status: Acute Assessment and plan: Lactate was still elevated, higher on recheck, given 2 L iVF, recheck this afternoon 3.5 Secondary to cellulitis and ulceration/wound of dorsum of left foot. Antibiotic coverage with Vancomycin due to increased lactate changed to zosyn Blood cultures obtained, 1 positive bottle out of 4 Qualifiers: Sepsis type: sepsis due to unspecified organism Sepsis acute organ dysfunction status: unspecified Qualified Code(s): A41.9 - Sepsis, unspecified organism (2) Cellulitis: Start date: 04/18/21 Start time: 10:30 Status: Acute Assessment and plan: Admitted in December for same. LLE and foot involved. Dorsum of left foot with fissures/lesions that have a foul odor. This is appropriate for wound clinic and lymphedema with PT, VANESSA wraps when medically ready, patient refuses to see Dr. Lopez Bacteremia d/t Serratia Marsescens at previous admission. Qualifiers: Site of cellulitis: extremity Site of cellulitis of extremity: lower extremity Laterality: left Qualified Code(s): L03.116 - Cellulitis of left lower limb (3) Thrombocytopenia: Start date: 04/18/21 Start time: 10:30 Status: Chronic Assessment and plan: Chronic. Related to cirrhosis. monitor daily not a candidate for chemical prophylaxis due to this and esophageal varices (4) Diabetes mellitus: Start date: 04/18/21 Start time: 10:30 Status: Chronic Assessment and plan: Diet controlled. A1C of 5.6 Sliding scale insulin correction dosing. Qualifiers: Diabetes mellitus type: type 2 Diabetes mellitus custodial insulin use: without custodial use Diabetes mellitus complication status: without complication Qualified Code(s): E11.9 - Type 2 diabetes mellitus without complications (5) Cirrhosis: Start date: 04/18/21 Start time: 10:30 Status: Chronic Assessment and plan: Cont Rifaximin, increase lactulose and spironolactone. ammonia level elevated with confusion given 30 mg, now AAOx3 Bilirubin higher than at previous checks. Monitor. Qualifiers: Hepatic cirrhosis type: other cirrhosis Qualified Code(s): K74.69 - Other cirrhosis of liver (6) Elephantiasis nostra olivercosa: Start date: 04/18/21 Start time: 16:46 Status: Acute Assessment and plan: Cont lasix. Elevate BLE's routinely. discussed with Dr. Rich Subjective Subjective Patient reports: other Interval history since last seen: Patient is more awake and alert, ammonia level was elevated at 54, she was given 30 mg of lactulose this am. She states she does not remember having a scan of her CT or anything from the ED. Her LLE is warm to touch with erythema, she has one of four bottles positive likely contaminant, however her lactate did get very high bumping up from 4.6 to 5.4 requiring 2 L of IVF after repeat she was down to 3.5, will recheck this evening, placed on zosyn in addition to vanco. She denies Cp, soB, n/v/d Exam Const General: cooperative, no acute distress and ill appearing chronically Nutritional Appearance: obese Orientation: alert, awake and oriented x3 HENMT Head: normocephalic and atraumatic Eyes General: appearance normal, both eyes and all related structures Sclera: abnormal sclerae Pupils: PERRL EOM: EOM intact bilaterally Other: icteric Resp Effort & Inspection: normal respiratory effort Auscultation: clear to auscultation bilaterally Cardio Rate: regular rate Rhythm: regular rhythm Heart Sounds: S1 normal, S2 normal and murmur systolic GI Palpation: soft and nontender Auscultation: normal bowel sounds Skin General skin exam: hypertrophy Wounds: wounds noted (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) Neuro General: patient alert, patient awake, patient oriented x3 and moves all extremities Extrem General: no calf tenderness and edema Laterality: bilateral (Lympedema of BLEs into feet.) Objective Last Vital Signs Temp 37.3 C 04/18/21 15:39 Pulse 87 04/18/21 15:39 Resp 18 04/18/21 15:39 BP 120/68 04/18/21 15:39 Pulse Ox 95 04/18/21 15:39 Laboratory Results - last 24 hr 04/17/21 04/17/21 04/17/21 17:33 17:33 17:33 WBC RBC Hgb Hct MCV MCH MCHC RDW Plt Count MPV Immature Gran % Neutrophils % Band Neutrophils % Lymphocytes % Monocytes % Eosinophils % Basophils % Nucleated RBC % Absolute Neutrophils Absolute Lymphocytes Absolute Monocytes Absolute Eosinophils Absolute Basophils RBC Morphology ESR 14 VBG Lactate 4.6 H* Sodium 142 Potassium 3.7 Chloride 104 Carbon Dioxide 27.5 Anion Gap 10.5 BUN 21 H Creatinine 1.1 H Estimated GFR/1.73 m2 50.01 Glucose 167 H Hemoglobin A1c Calcium 8.6 Magnesium Total Bilirubin 5.8 H AST 39 H ALT 28 Alkaline Phosphatase 151 H Ammonia C-Reactive Protein 6.43 H Total Protein 5.9 L Albumin 2.3 L COVID-19 Source SARS-CoV-2 (PCR) 04/17/21 04/17/21 04/17/21 17:33 17:33 19:20 WBC 10.00 RBC 3.90 L Hgb 12.0 Hct 35.8 L MCV 91.8 MCH 30.8 MCHC 33.5 RDW 14.8 H Plt Count 71 L MPV 10.4 Immature Gran % 0.5 Neutrophils % 92.1 Band Neutrophils % Lymphocytes % 4.8 Monocytes % 2.0 Eosinophils % 0.1 Basophils % 0.5 Nucleated RBC % 0 Absolute Neutrophils 9.21 H Absolute Lymphocytes 0.48 L Absolute Monocytes 0.20 Absolute Eosinophils 0.01 Absolute Basophils 0.05 RBC Morphology ESR VBG Lactate Sodium Potassium Chloride Carbon Dioxide Anion Gap BUN Creatinine Estimated GFR/1.73 m2 Glucose Hemoglobin A1c 5.6 Calcium Magnesium Total Bilirubin AST ALT Alkaline Phosphatase Ammonia C-Reactive Protein Total Protein Albumin COVID-19 Source Nasal/Nares SARS-CoV-2 (PCR) Negative 04/18/21 04/18/21 04/18/21 07:15 07:15 07:15 WBC 12.00 H RBC 3.71 L Hgb 11.5 Hct 34.2 L MCV 92.2 MCH 31.0 MCHC 33.6 RDW 14.5 Plt Count 63 L MPV 10.5 Immature Gran % 0.0 Neutrophils % 78.0 Band Neutrophils % 11 Lymphocytes % 6.0 Monocytes % 5.0 Eosinophils % 0.0 Basophils % 0.0 Nucleated RBC % 0 Absolute Neutrophils 10.68 H Absolute Lymphocytes 0.72 L Absolute Monocytes 0.60 Absolute Eosinophils 0.00 Absolute Basophils 0.00 RBC Morphology Normal ESR VBG Lactate Sodium 139 Potassium 3.8 Chloride 104 Carbon Dioxide 25.1 Anion Gap 9.9 BUN 29 H Creatinine 1.3 H Estimated GFR/1.73 m2 41.24 Glucose 232 H Hemoglobin A1c Calcium 8.4 L Magnesium 1.6 L Total Bilirubin 4.3 H AST 105 H ALT 35 Alkaline Phosphatase 123 H Ammonia C-Reactive Protein Total Protein 5.5 L Albumin 2.0 L COVID-19 Source SARS-CoV-2 (PCR) 04/18/21 04/18/21 04/18/21 08:51 09:30 14:05 WBC RBC Hgb Hct MCV MCH MCHC RDW Plt Count MPV Immature Gran % Neutrophils % Band Neutrophils % Lymphocytes % Monocytes % Eosinophils % Basophils % Nucleated RBC % Absolute Neutrophils Absolute Lymphocytes Absolute Monocytes Absolute Eosinophils Absolute Basophils RBC Morphology ESR VBG Lactate 5.4 H* 3.5 H* Sodium Potassium Chloride Carbon Dioxide Anion Gap BUN Creatinine Estimated GFR/1.73 m2 Glucose Hemoglobin A1c Calcium Magnesium Total Bilirubin AST ALT Alkaline Phosphatase Ammonia 54 H C-Reactive Protein Total Protein Albumin COVID-19 Source SARS-CoV-2 (PCR)
[2021-04-18 19:59] LABS: Lactate 2.9 mmol/L (0.6-1.4)
[2021-04-18] MEDS: Lactulose 20 GM/30 ML CUP 15 GM PO (23:04)
[2021-04-18 23:12] VITALS: BP 128/68; PULSE 94; RESP 19; TEMP 37.7; O2SAT 92
[2021-04-19] MEDS: VANCOMYCIN/WATER (PEG) 1 GM/200 ML BAG IV ×2 (00:57→14:57)
[2021-04-19 07:16] LABS: Abs Immature Grans 0.06 10^3/uL (0.0-0.06); Absolute Basophil Count 0.09 10^3/uL (0.0-0.2); Absolute Eosinophil Count 0.63 10^3/uL (0.0-0.7); Absolute Lymphocyte Count 1.21 10^3/uL (1.2-3.4); Absolute Monocyte Count 0.75 10^3/uL (0.1-0.8); Absolute Neutrophil Count 7.53 10^3/uL (1.2-6.7); Basophils % 0.9; Eosinophils % 6.1; HCT 32.8 % (36.0-46.0); HGB 10.9 g/dL (11.2-15.7); Immature Grans % 0.6; Lymphocytes % 11.8; MCH 30.4 pg (27.0-33.0); MCHC 33.2 % (32.0-36.0); MCV 91.4 fL (80-95); MPV 10.7 fL (8.0-11.0); Monocytes % 7.3; Neutrophils % 73.3; Nucleated RBC 0 %; RBC 3.59 10^6/uL (3.93-5.22); RDW 14.3 % (11.7-14.6); RDW-SD 47.8 fL; WBC 10.27 10^3/uL (4.4-10.8)
[2021-04-19 07:30] VITALS: BP 121/68; PULSE 83; RESP 16; TEMP 37.3; O2SAT 95
[2021-04-19 07:32] LABS: Diff Comment Diff Reviewed; Magnesium 2.1 mg/dL (1.8-2.4); Platelet Count 78 10^3/uL (130-400); RBC Morphology Normal
[2021-04-19 07:36] LABS: ALT 38 U/L (14-59); AST 125 U/L (15-37); Alkaline Phosphatase 120 U/L (46-116); Anion Gap 5.5 mmol/L (3-11); BUN 25 mg/dL (7-18); Bilirubin, Total 3.4 mg/dL (0.2-1.0); CO2 28.5 mmol/L (21.0-32.0); Chloride 104 mmol/L (98-107); Estimated GFR 55.82 (mL/min/1.73m2); Glucose 141 mg/dL (74-106); Potassium 3.5 mmol/L (3.5-5.1); Sodium 138 mmol/L (136-145); Total Protein 5.5 g/dL (6.4-8.2)
[2021-04-19 07:51] LABS: Procalcitonin 15.1 ng/mL
--- NOTE | 2021-04-19 08:14 | W.PALLCONSUL ---
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 She has been diagnosed with Elephantiasis nostra verrucosa but has not received any treatment to date that helps to clear this up. She has had a few hospitalizations because of sepsis thought to be originating in her feet. She states that the day that she came into the hospital she was delirious. She is feeling better now. Consults Consult date: 04/19/21 Requesting physician: Cy Rich Assessment and Plan Assessment and plan (1) Cellulitis of left leg: Status: Acute (2) Sepsis: Status: Acute Qualifiers: Sepsis type: sepsis due to unspecified organism Sepsis acute organ dysfunction status: unspecified Qualified Code(s): A41.9 - Sepsis, unspecified organism (3) Heart failure: Status: Acute (4) Elephantiasis nostra verrucosa: Status: Acute (5) Aortic stenosis: Status: Chronic (6) Palliative care encounter: Status: Acute Assessment and plan: Mayra is well-known to me. She feels like she is improving. She wants to stay the course, continue antibiotics and work on getting well. She understands that she has some things working against her including her cirrhosis and aortic stenosis. She does have an appointment done at [facility] for her elephantiasis. This is later this month. Discussion regarding Code Status preferences - patient wants to be a Full Code Review of Systems Narrative: That she is more awake. Her feet are hurting less but she does have compression on her lower legs that are bothersome to her. Presently her feet do not hurt her. They often times have pain. She is not having any chest pain or shortness of breath. No abdominal pain. [facility] Medical History (Updated 04/20/21 @ 12:55 by Malu Baron MD, [place]) Abdominal pain, chronic, epigastric (03/23/16) Advance directive on file Annual physical exam (02/22/18) Aortic stenosis, severe Bacteremia Bacteremia due to group B Streptococcus Bleeding esophageal varices (03/10/16) Breast mass CAP (community acquired pneumonia) Carpal tunnel syndrome right; s/p release Cellulitis Cellulitis Cervical disc disorder with myelopathy (09/04/12) Chronic epigastric pain (03/23/16) Complicated UTI (urinary tract infection) Diabetic foot infection Discharge planning issues DVT femoral (deep venous thrombosis) with thrombophlebitis DVT prophylaxis DVT prophylaxis Edema, unspecified 06/28/16 B/L Elevated troponin Elevation of level of transaminase and lactic acid dehydrogenase (LDH) Epistaxis Esophageal varices with hemorrhage Fever Fever, unknown origin 04/14/16 Fluid overload Foot pain GI bleed Gram-positive bacteremia Hepatic encephalopathy (03/10/16) Hyperlipidemia (09/04/12) Incisional hernia (01/15/15) Increased body mass index Mild epistaxis 12/21/15 Nausea Pancytopenia Physical deconditioning Pleural effusion Pneumonia Portal hypertension Sepsis Sepsis Sepsis syndrome Thyroid nodule right; 2008-[facility] [place]; 2.3cm nodule; neg. biopsy Uninodular goiter Tubular adenoma (04/12/13) Surgical History Colonoscopy - IV Sedation (04/12/13) DR. Bhumika CLAYTON Open Carpal Tunnel release RIGHT PROCEDURES OTHER CERVICAL FUS ANT discectomy 2008 [facility] [place]; NEGATIVE THYROID BX S/P carpal tunnel release right S/P cervical spinal fusion anterior; discectomy S/P cervical spinal fusion anterior;discectomy S/P tonsillectomy Status post biopsy of thyroid gland 09/18/08 neg Status post carpal tunnel release Status post cervical spinal arthrodesis Status post tonsillectomy Tonsillectomy Family History Mother Pancreatic cancer Father Diabetes Essential hypertension Stroke Sister Heart disease Brother Bone cancer Liver cancer Maternal Grandfather No problems noted. Paternal Grandfather No problems noted. Maternal Grandmother , OLD AGE at age 89. No problems noted. Paternal Grandmother Breast cancer Sister Diabetes Colon cancer Rectal cancer Sister Diabetes Son No problems noted. Son No problems noted. Daughter No problems noted. Daughter Alcohol abuse Asthma Social History Smoking/Tobacco Use Status: Former Tobacco Use Tobacco: How many years used: 2 Second Hand Exposure: Yes Smoking risk assessment performed?: Yes Alcohol Intake: never Drug use: Never Counseling given: No Household members: spouse and children Housing: house Communication Needs: None Do you need help understanding health information?: Rarely Pets and animals: Yes Pets and animals: dog(s) Sexually active: No Do you think of yourself as: straight/heterosexual Current gender identity: female What is your relationship status?: How often do you talk on the phone with friends or family?: three or more times per week How often do you get together with friends or relatives?: once per week How often do you attend latter-day or catholic services?: 1-3 times per year Do you belong to any clubs or organized social groups?: no Panel score (0-1 are the most socially isolated patients): 2 What type of physical activity do you participate in: decline to answer Duration: < 15 minutes/day Frequency: 1-2 times per week Lyubov/Druze: Nondenominational Special lyubov needs: No Seatbelt use: always Helmet use: No Drive intox or ride w/intox roll off driver: No Do you feel safe at home: Yes Do you feel safe in your relationship?: Yes Exam Narrative Exam Narrative: Sitting in bed. She recognizes me. Her heart is regular with a harsh murmur. Lungs little air movement. Abdomen soft. Feet have edema and open sores Results Last Vital Signs Temp 99.9 F H 04/18/21 23:12 Pulse 94 H 04/18/21 23:12 Resp 19 04/18/21 23:12 BP 128/68 04/18/21 23:12 Pulse Ox 92 04/18/21 23:12 Labs Result diagrams: 04/20/21 06:17 04/20/21 06:17 Labs: Laboratory Results - last 24 hr 04/18/21 04/18/21 04/18/21 07:15 07:15 08:51 WBC RBC Hgb Hct MCV MCH MCHC RDW Plt Count MPV Immature Gran % Neutrophils % Lymphocytes % Monocytes % Eosinophils % Basophils % Nucleated RBC % Absolute Neutrophils Absolute Lymphocytes Absolute Monocytes Absolute Eosinophils Absolute Basophils RBC Morphology VBG Lactate 5.4 H* Sodium 139 Potassium 3.8 Chloride 104 Carbon Dioxide 25.1 Anion Gap 9.9 BUN 29 H Creatinine 1.3 H Estimated GFR/1.73 m2 41.24 Glucose 232 H Calcium 8.4 L Magnesium 1.6 L Total Bilirubin 4.3 H AST 105 H ALT 35 Alkaline Phosphatase 123 H Ammonia Total Protein 5.5 L Albumin 2.0 L Procalcitonin 04/18/21 04/18/21 04/18/21 09:30 14:05 19:41 WBC RBC Hgb Hct MCV MCH MCHC RDW Plt Count MPV Immature Gran % Neutrophils % Lymphocytes % Monocytes % Eosinophils % Basophils % Nucleated RBC % Absolute Neutrophils Absolute Lymphocytes Absolute Monocytes Absolute Eosinophils Absolute Basophils RBC Morphology VBG Lactate 3.5 H* 2.9 H* Sodium Potassium Chloride Carbon Dioxide Anion Gap BUN Creatinine Estimated GFR/1.73 m2 Glucose Calcium Magnesium Total Bilirubin AST ALT Alkaline Phosphatase Ammonia 54 H Total Protein Albumin Procalcitonin 04/19/21 04/19/21 04/19/21 06:47 06:47 06:47 WBC 10.27 RBC 3.59 L Hgb 10.9 L Hct 32.8 L MCV 91.4 MCH 30.4 MCHC 33.2 RDW 14.3 Plt Count 78 L MPV 10.7 Immature Gran % 0.6 Neutrophils % 73.3 Lymphocytes % 11.8 Monocytes % 7.3 Eosinophils % 6.1 Basophils % 0.9 Nucleated RBC % 0 Absolute Neutrophils 7.53 H Absolute Lymphocytes 1.21 Absolute Monocytes 0.75 Absolute Eosinophils 0.63 Absolute Basophils 0.09 RBC Morphology Normal VBG Lactate Sodium Cancelled Potassium Cancelled Chloride Cancelled Carbon Dioxide Cancelled Anion Gap Cancelled BUN Cancelled Creatinine Cancelled Estimated GFR/1.73 m2 Cancelled Glucose Cancelled Calcium Cancelled Magnesium 2.1 Total Bilirubin AST ALT Alkaline Phosphatase Ammonia Total Protein Albumin Procalcitonin 15.1 04/19/21 06:47 WBC RBC Hgb Hct MCV MCH MCHC RDW Plt Count MPV Immature Gran % Neutrophils % Lymphocytes % Monocytes % Eosinophils % Basophils % Nucleated RBC % Absolute Neutrophils Absolute Lymphocytes Absolute Monocytes Absolute Eosinophils Absolute Basophils RBC Morphology VBG Lactate Sodium 138 Potassium 3.5 Chloride 104 Carbon Dioxide 28.5 Anion Gap 5.5 BUN 25 H Creatinine 1.0 Estimated GFR/1.73 m2 55.82 Glucose 141 H D Calcium 8.0 L Magnesium Total Bilirubin 3.4 H AST 125 H ALT 38 Alkaline Phosphatase 120 H Ammonia Total Protein 5.5 L Albumin 2.0 L Procalcitonin
[2021-04-19] MEDS: Lactulose 20 GM/30 ML CUP 15 GM PO ×3 (09:04→20:02)
[2021-04-19] MEDS: FUROSEMIDE 40 MG, FUROSEMIDE 20 MG 60 MG PO (09:04)
[2021-04-19] MEDS: amLODIPine 5 MG TAB PO (09:05)
[2021-04-19] MEDS: Rifaximin 550 MG TAB PO ×2 (09:05→20:03)
[2021-04-19] MEDS: Sucralfate 1 GM TAB PO ×4 (09:05→21:31)
[2021-04-19] MEDS: Ascorbic Acid 500 MG TAB PO (09:05)
[2021-04-19] MEDS: Spironolactone 50 MG TAB PO (09:05)
[2021-04-19] MEDS: Pantoprazole 40 MG TABCR PO (09:05)
[2021-04-19] MEDS: Pregabalin 50 MG CAP 100 MG PO ×3 (09:05→20:03)
[2021-04-19] MEDS: Zinc Sulfate 220 MG TAB PO (09:05)
[2021-04-19] MEDS: oxyCODONE 5 MG TAB 2.5 MG PO (09:19)
[2021-04-19] MEDS: Acetaminophen 325 MG TAB 650 MG PO (09:19)
[2021-04-19] MEDS: Normal Saline Flush 10 ML SYR IVP ×2 (10:08→14:58)
--- NOTE | 2021-04-19 11:28 | DM INPTCON_ITS ---
Date of service: 04/19/21 Time of Service: 11:28 Diabetes Inpatient Consult DESCRIPTION/ASSESSMENT: 66 year old female admitted with chronic lymphadema with cellulitis of left lower leg with PMH: DM2, pancreatic mass, liver cirrohosis, obesity. Most recent A1c: 5.6% indicating resolution of DM2, no DM meds used at home. Following diabetic low sodium diet with excellent intake, meeting macronutrient needs. Met with Mayra today and offered nutritional education, she declined. DM t reated in house with sliding scale insulin prn. INTERVENTION: declined education PLAN: continue current meal plan, monitor po intake, labs and will be available prn Time Spent in Nutritional Counseling and Treatment: 5
[2021-04-19] MEDS: Insulin Aspart 300 UNITS/3 ML PEN SC ×2 (12:26→17:00)
[2021-04-19] MEDS: Furosemide 20 MG TAB PO (13:47)
[2021-04-19 16:26] VITALS: BP 106/53; PULSE 77; RESP 18; TEMP 36.6; O2SAT 96
--- NOTE | 2021-04-19 17:19 | W.PM.PROGNOT ---
Date of Service Date of service: 04/19/21 Time of Service: 17:20 Assessment and Plan Assessment and plan (1) Sepsis: Start date: 04/19/21 Start time: 17:24 Status: Acute Assessment and plan: Repeat lactate improved however procal 15.1 She is feeling and looking and better Secondary to cellulitis and ulceration/wound of dorsum of left foot. Antibiotic coverage with Vancomycin and zosyn Blood cultures revealing staph no auerus Fevers have defervesced Qualifiers: Sepsis type: sepsis due to unspecified organism Sepsis acute organ dysfunction status: unspecified Qualified Code(s): A41.9 - Sepsis, unspecified organism (2) Cellulitis: Start date: 04/19/21 Start time: 17:31 Status: Acute Assessment and plan: Admitted in December for same. LLE and foot involved. Dorsum of left foot with fissures/lesions that have a foul odor. This is appropriate for wound clinic and lymphedema with PT, VANESSA wraps, patient refuses to see Dr. Lopez treatment as above . Qualifiers: Site of cellulitis: extremity Site of cellulitis of extremity: lower extremity Laterality: left Qualified Code(s): L03.116 - Cellulitis of left lower limb (3) Thrombocytopenia: Start date: 04/19/21 Start time: 17:33 Status: Chronic Assessment and plan: Chronic. Related to cirrhosis. monitor daily not a candidate for chemical prophylaxis due to this and esophageal varices platelets 78 (4) Diabetes mellitus: Start date: 04/19/21 Start time: 17:34 Status: Chronic Assessment and plan: Diet controlled. A1C of 5.6 Sliding scale insulin correction dosing. Sugars have been running between 130-180's Qualifiers: Diabetes mellitus type: type 2 Diabetes mellitus skilled nursing insulin use: without exterminator helper termite use Diabetes mellitus complication status: without complication Qualified Code(s): E11.9 - Type 2 diabetes mellitus without complications (5) Cirrhosis: Start date: 04/19/21 Start time: 17:35 Status: Chronic Assessment and plan: Cont Rifaximin, increase lactulose and spironolactone. ammonia level elevated with confusion given 30 mg, now AAOx3 Bilirubin higher than at previous checks. Monitor. Qualifiers: Hepatic cirrhosis type: other cirrhosis Qualified Code(s): K74.69 - Other cirrhosis of liver (6) Elephantiasis nostra verrucosa: Start date: 04/19/21 Start time: 17:35 Status: Acute Assessment and plan: Cont lasix. Elevate BLE's routinely. discussed with Dr. Rich Subjective Subjective Patient reports: feels better Interval history since last seen: Feeling better. She does have a procal. Sending wound culture. Blood culture growing staph no aures, continue vanco and zosyn. Wound cx sent. Denies CP, SOB , n/v/d Exam Const General: cooperative, no acute distress and ill appearing chronically Nutritional Appearance: obese Orientation: alert, awake and oriented x3 [place] Head: normocephalic and atraumatic Eyes General: appearance normal, both eyes and all related structures Sclera: abnormal sclerae Pupils: PERRL EOM: EOM intact bilaterally Resp Effort & Inspection: normal respiratory effort Auscultation: clear to auscultation bilaterally Cardio Rate: regular rate Rhythm: regular rhythm Heart Sounds: S1 normal, S2 normal and murmur systolic GI Palpation: soft and nontender Auscultation: normal bowel sounds Skin General skin exam: hypertrophy Wounds: wounds noted (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) Neuro General: patient alert, patient awake, patient oriented x3 and moves all extremities Extrem General: no calf tenderness and edema Laterality: bilateral (Lympedema of BLEs into feet.) Objective Last Vital Signs Temp 36.6 C 04/19/21 16:26 Pulse 77 04/19/21 16:26 Resp 18 04/19/21 16:26 BP 106/53 L 04/19/21 16:26 Pulse Ox 96 04/19/21 16:26 Laboratory Results - last 24 hr 04/18/21 04/19/21 04/19/21 19:41 06:47 06:47 WBC RBC Hgb Hct MCV MCH MCHC RDW Plt Count MPV Immature Gran % Neutrophils % Lymphocytes % Monocytes % Eosinophils % Basophils % Nucleated RBC % Absolute Neutrophils Absolute Lymphocytes Absolute Monocytes Absolute Eosinophils Absolute Basophils RBC Morphology VBG Lactate 2.9 H* Sodium Cancelled Potassium Cancelled Chloride Cancelled Carbon Dioxide Cancelled Anion Gap Cancelled BUN Cancelled Creatinine Cancelled Estimated GFR/1.73 m2 Cancelled Glucose Cancelled Calcium Cancelled Magnesium 2.1 Total Bilirubin AST ALT Alkaline Phosphatase Total Protein Albumin Procalcitonin 15.1 08/02/21 08/02/21 06:47 06:47 WBC 10.27 RBC 3.59 L Hgb 10.9 L Hct 32.8 L MCV 91.4 MCH 30.4 MCHC 33.2 RDW 14.3 Plt Count 78 L MPV 10.7 Immature Gran % 0.6 Neutrophils % 73.3 Lymphocytes % 11.8 Monocytes % 7.3 Eosinophils % 6.1 Basophils % 0.9 Nucleated RBC % 0 Absolute Neutrophils 7.53 H Absolute Lymphocytes 1.21 Absolute Monocytes 0.75 Absolute Eosinophils 0.63 Absolute Basophils 0.09 RBC Morphology Normal VBG Lactate Sodium 138 Potassium 3.5 Chloride 104 Carbon Dioxide 28.5 Anion Gap 5.5 BUN 25 H Creatinine 1.0 Estimated GFR/1.73 m2 55.82 Glucose 141 H D Calcium 8.0 L Magnesium Total Bilirubin 3.4 H AST 125 H ALT 38 Alkaline Phosphatase 120 H Total Protein 5.5 L Albumin 2.0 L Procalcitonin
--- NOTE | 2021-04-19 17:58 | INITIAL_ITS ---
- If Service Date Differs Date of service: 04/19/21 Time of Service: 17:58 Care Management Initial Assess REASON FOR HOSPITALIZATION:: L leg cellulitis, left foot wound, fever PAST MEDICAL HISTORY/PAST SURGICAL HISTORY:: Medical History. Abdominal pain, chronic, epigastric (03/23/16). Advance directive on file. Annual physical exam (02/22/18). Aortic stenosis, severe. Bacteremia. Bacteremia due to group B Streptococcus. Bleeding esophageal varices (03/10/16). Breast mass. CAP (community acquired pneumonia). Carpal tunnel syndrome. right; s/p release. Cellulitis. Cellulitis. Cervical disc disorder with myelopathy (09/04/12). Chronic epigastric pain (03/23/16). Complicated UTI (urinary tract infection). Diabetic foot infection. Discharge planning issues. DVT femoral (deep venous thrombosis) with thrombophlebitis. DVT prophylaxis. DVT prophylaxis. Edema, unspecified. 06/28/16 B/L. Elevated troponin. Elevation of level of transaminase and lactic acid dehydrogenase (LDH). Epistaxis. Esophageal varices with hemorrhage. Fever. Fever, unknown origin. 04/14/16. Fluid overload. Foot pain. GI bleed. Gram-positive bacteremia. Hepatic encephalopathy (03/10/16). Hyperlipidemia (09/04/12). Incisional hernia (01/15/15). Increased body mass index. Mild epistaxis. 12/21/15. Nausea. Pancytopenia. Physical deconditioning. Pleural effusion. Pneumonia. Portal hypertension. Sepsis. Sepsis. Sepsis syndrome. Thyroid nodule. right; 2008- [facility] [place] 2.3cm nodule; neg. biopsy. Uninodular goiter. Tubular adenoma (04/12/13). Surgical History. Colonoscopy - IV Sedation (04/12/13). DR. Bhumika CLAYTON. Open Carpal Tunnel release. RIGHT. PROCEDURES. OTHER CERVICAL FUS ANT. discectomy. 2008 [facility] [place]; NEGATIVE THYROID BX. S/P carpal tunnel release. right. S/P cervical spinal fusion. anterior; discectomy. S/P cervical spinal fusion. anterior;discectomy. S/P tonsillectomy. Status post biopsy of thyroid gland. 09/18/08 neg. Status post carpal tunnel release. Status post cervical spinal arthrodesis. Status post tonsillectomy. Tonsillectomy PREVIOUS FUNCTIONAL STATUS/SOCIAL/FAMILY SUPPORTS:: Mayra resides in a single family home in [place] with her and daughter, Divya. She has three additional adult children all who are supportive. Mayra is not currently employed, she was previously independent with ADLs and activities, though over the last few monthes she has needed some assistance. CURRENT FUNCTIONAL STATUS:: Mayra was sitting up in her chair when CM met with her. She reported that she was feeling better today. She stated that per MD, she expects to be here a day or two more. Per report, she is receiving IV antibiotics, which were changed today, and repeat blood cultures are pending. CM will continue to follow. ADVANCE DIRECTIVES:: COLST on file. Has patient been provided with info about the portal/API?: Yes Did the patient sign up for the portal?: No CODE STATUS:: Full Code INSURANCE COVERAGE / FINANCIAL ISSUES:: MCR/ BCBS CURRENT HOME/COMMUNITY SERVICES/EQUIPMENT:: Mayra stated that her daughter is her paid caregiver, and she helps her around the house, cooking and cleaning, and with some personal care. PRIMARY CARE PHYSICIAN:: Malu Baron POTENTIAL DISCHARGE NEEDS:: Evaluations for further needs, follow up appointments. PATIENT/FAMILY EDUCATION NEEDS:: Review discharge instructions regarding activity levels and wound care, discussion of self care needs including ask me three. ANTICIPATED BARRIERS TO DISCHARGE:: None identified. TRANSPORTATION:: Via private vehicle by family. PLAN:: Anticipate Mayra will return home when medically cleared. She will be driven home via private vehicle by family. She will follow up with her PCP and discharge plan of care. CM will continue to follow.
[2021-04-19 23:05] VITALS: BP 123/58; PULSE 90; RESP 16; TEMP 36.8; O2SAT 94
[2021-04-20] MEDS: Normal Saline Flush 10 ML SYR IVP ×5 (03:29→22:00)
[2021-04-20] MEDS: VANCOMYCIN/WATER (PEG) 1 GM/200 ML BAG IV ×2 (04:10→17:42)
[2021-04-20 07:09] LABS: Abs Immature Grans 0.05 10^3/uL (0.0-0.06); Absolute Basophil Count 0.09 10^3/uL (0.0-0.2); Absolute Eosinophil Count 0.68 10^3/uL (0.0-0.7); Absolute Lymphocyte Count 0.97 10^3/uL (1.2-3.4); Absolute Monocyte Count 0.73 10^3/uL (0.1-0.8); Absolute Neutrophil Count 5.02 10^3/uL (1.2-6.7); Basophils % 1.2; HCT 30.2 % (36.0-46.0); HGB 10.2 g/dL (11.2-15.7); Immature Grans % 0.7; Lymphocytes % 12.9; MCH 30.5 pg (27.0-33.0); MCHC 33.8 % (32.0-36.0); MCV 90.4 fL (80-95); MPV 10.4 fL (8.0-11.0); Monocytes % 9.7; Neutrophils % 66.5; Nucleated RBC 0 %; RBC 3.34 10^6/uL (3.93-5.22); RDW 14.2 % (11.7-14.6); RDW-SD 47.1 fL; WBC 7.54 10^3/uL (4.4-10.8)
[2021-04-20 07:25] LABS: ALT 39 U/L (14-59); AST 76 U/L (15-37); Albumin 1.9 g/dL (3.4-5.0); Alkaline Phosphatase 130 U/L (46-116); BUN 22 mg/dL (7-18); CREATININE 0.9 mg/dL (0.55-1.02); Calcium 7.9 mg/dL (8.5-10.1); Chloride 103 mmol/L (98-107); Glucose 151 mg/dL (74-106); Potassium 3.3 mmol/L (3.5-5.1); Sodium 137 mmol/L (136-145); Total Protein 5.1 g/dL (6.4-8.2)
[2021-04-20 07:34] LABS: Diff Comment Diff Reviewed; Hypochromasia 1+; Platelet Count 75 10^3/uL (130-400); Polychromasia Present
[2021-04-20 07:38] VITALS: BP 127/72; PULSE 91; RESP 18; TEMP 36.5; O2SAT 94
[2021-04-20] MEDS: Pregabalin 50 MG CAP 100 MG PO ×3 (08:20→20:56)
[2021-04-20] MEDS: Ascorbic Acid 500 MG TAB PO (08:20)
[2021-04-20] MEDS: Sucralfate 1 GM TAB PO ×4 (08:20→22:00)
[2021-04-20] MEDS: Spironolactone 50 MG TAB PO (08:21)
[2021-04-20] MEDS: Pantoprazole 40 MG TABCR PO (08:21)
[2021-04-20] MEDS: Rifaximin 550 MG TAB PO ×2 (08:21→20:56)
[2021-04-20] MEDS: amLODIPine 5 MG TAB PO (08:21)
[2021-04-20] MEDS: Zinc Sulfate 220 MG TAB PO (08:21)
[2021-04-20] MEDS: Lactulose 20 GM/30 ML CUP 15 GM PO ×3 (08:22→20:56)
[2021-04-20] MEDS: FUROSEMIDE 40 MG, FUROSEMIDE 20 MG 60 MG PO (08:22)
--- NOTE | 2021-04-20 10:31 | CMPROGNOTE_ITS ---
- If Service Date Differs Date of service: 04/20/21 Time of Service: 10:31 Care Management Progress Note S/O: Mayra was sitting up in her chair when CM met with her. She reported feeling much better today. She stated that per MD, she is waiting for repeat blood cultures to be returned in order to determine her abx course. She was pleasant and engaged in conversation. She stated, again, that she does not want services at this time, as she feels that she has enough help at home. CM will continue to follow. A: Mayra is a 66 year old female admitted to [facility] on 04/17/21 for L leg cellulitis, L foot wound, fever. P: Anticipate Mayra will return home when medically cleared. She will be driven home via private vehicle by family. She will follow up with her PCP and discharge plan of care. CM will continue to follow.
[2021-04-20] MEDS: Insulin Aspart 300 UNITS/3 ML PEN SC ×2 (12:47→16:39)
[2021-04-20] MEDS: Furosemide 20 MG TAB PO (14:10)
[2021-04-20 15:35] VITALS: BP 118/63; PULSE 84; RESP 17; TEMP 36.6; O2SAT 95
--- NOTE | 2021-04-20 20:20 | PGE_ITS ---
Date of Service Date of service: 04/20/21 Time of Service: 20:20 Assessment and Plan Assessment and plan (1) Pancreatic mass: Status: Acute Assessment and plan: Pt was transferred to [facility] from [facility] in December d/t DVT in left greater saphenous vein from the knee to within 1.7cm of the junction of the greater saphenous vein and common femoral vein. No DVT prophylaxis with anticoagulants d/t cirrhosis, thrombocytopenia, esophageal varices. (2) Thrombocytopenia: Status: Chronic Assessment and plan: Chronic. Stable. Related to cirrhosis. (3) Diabetes mellitus: Status: Chronic Assessment and plan: Diet controlled. A1c of 5.1 in November of this year. Recheck A1c. ACHS glucose monitoring Sliding scale insulin correction dosing. Qualifiers: Diabetes mellitus type: type 2 Diabetes mellitus custodial insulin use: without custodial use Diabetes mellitus complication status: without complication Qualified Code(s): E11.9 - Type 2 diabetes mellitus without complications (4) Cirrhosis: Status: Chronic Assessment and plan: Cont Rifaximin, lactulose and spironolactone. Bilirubin higher than at previous checks at time of admission. Now improving. Monitor. Qualifiers: Hepatic cirrhosis type: other cirrhosis Qualified Code(s): K74.69 - Other cirrhosis of liver (5) Elephantiasis nostra verrucosa: Status: Acute Assessment and plan: Cont lasix. Elevate BLE's routinely. (6) Cellulitis: Status: Acute Assessment and plan: Admitted in December for same. LLE and foot involved. Dorsum of left foot with fissures/lesions that have a foul odor. Wound care consulted. Bacteremia d/t Serratia Marsescens at previous admission. Will cover with Vancomycin and Levaquin. Blood cultures obtained in the ED. Qualifiers: Site of cellulitis: extremity Site of cellulitis of extremity: lower extremity Laterality: left Qualified Code(s): L03.116 - Cellulitis of left lower limb (7) Sepsis: Status: Acute Assessment and plan: Tachycardia, relative hypotension and elevated lactate. Secondary to cellulitis and ulceration/wound of dorsum of left foot. Antibiotic coverage with Vancomycin and Zosyn IV fluids given in the ED; 1500ml NS Now off IV fluid hydration. Lactate now normal. Blood culture growing staph epidermidis; likely contaminant. Plan to change to oral antibiotic in AM Qualifiers: Sepsis type: sepsis due to unspecified organism Sepsis acute organ dysfunction status: unspecified Qualified Code(s): A41.9 - Sepsis, unspecified organism Subjective Subjective Patient reports: no new complaints, feels better, tolerating a regular diet and afebrile; denies diarrhea and nausea Interval history since last seen: Tolerating VANESSA wraps to legs. Exam Narrative Exam Narrative: Patient is sitting in recliner / upright Const General: cooperative and no acute distress Nutritional Appearance: obese Orientation: alert [facility] Head: normocephalic and atraumatic Eyes General: appearance normal, both eyes and all related structures Sclera: sclerae normal Resp Effort & Inspection: normal respiratory effort Auscultation: clear to auscultation bilaterally Cardio Rate: regular rate Rhythm: regular rhythm Heart Sounds: S1 normal, S2 normal and murmur systolic GI Palpation: soft and nontender Auscultation: normal bowel sounds Skin Rashes: no rashes Neuro General: not awake, moves all extremities and other (Lethargic. Opens eyes justin efly and nods.) Extrem General: no calf tenderness and other (vanessa wraps of BLEs from knees to toes.) Psych Appearance: grossly normal Speech and Movement: speech and movement normal Affect: blunted Objective Last Vital Signs Temp 36.6 C 04/20/21 15:35 Pulse 84 04/20/21 15:35 Resp 17 04/20/21 15:35 BP 118/63 04/20/21 15:35 Pulse Ox 95 04/20/21 15:35 Laboratory Results - last 24 hr 04/20/21 04/20/21 04/20/21 05:35 06:17 06:17 WBC 7.54 RBC 3.34 L Hgb 10.2 L Hct 30.2 L MCV 90.4 MCH 30.5 MCHC 33.8 RDW 14.2 Plt Count 75 L MPV 10.4 Immature Gran % 0.7 Neutrophils % 66.5 Lymphocytes % 12.9 Monocytes % 9.7 Eosinophils % 9.0 Basophils % 1.2 Nucleated RBC % 0 Absolute Neutrophils 5.02 Absolute Lymphocytes 0.97 L Absolute Monocytes 0.73 Absolute Eosinophils 0.68 Absolute Basophils 0.09 RBC Morphology See Below Polychromasia Present Hypochromasia 1+ Sodium Cancelled 137 Potassium Cancelled 3.3 L Chloride Cancelled 103 Carbon Dioxide Cancelled 31.0 Anion Gap Cancelled 3.0 BUN Cancelled 22 H Creatinine Cancelled 0.9 Estimated GFR/1.73 m2 Cancelled >= 60.00 Glucose Cancelled 151 H Calcium Cancelled 7.9 L Total Bilirubin 3.0 H AST 76 H ALT 39 Alkaline Phosphatase 130 H Total Protein 5.1 L Albumin 1.9 L
[2021-04-21 00:07] VITALS: BP 121/67; PULSE 90; RESP 16; TEMP 36.8; O2SAT 92
[2021-04-21] MEDS: Normal Saline Flush 10 ML SYR IVP ×5 (04:04→22:45)
[2021-04-21 07:41] VITALS: BP 109/67; PULSE 91; RESP 16; TEMP 36.7; O2SAT 93
[2021-04-21] MEDS: Zinc Sulfate 220 MG TAB PO (08:06)
[2021-04-21] MEDS: Pregabalin 50 MG CAP 100 MG PO ×3 (08:06→20:04)
[2021-04-21] MEDS: Sucralfate 1 GM TAB PO ×4 (08:07→22:45)
[2021-04-21] MEDS: Pantoprazole 40 MG TABCR PO (08:07)
[2021-04-21] MEDS: amLODIPine 5 MG TAB PO (08:07)
[2021-04-21] MEDS: Ascorbic Acid 500 MG TAB PO (08:07)
[2021-04-21] MEDS: Spironolactone 50 MG TAB PO (08:07)
[2021-04-21] MEDS: Rifaximin 550 MG TAB PO ×2 (08:07→20:04)
[2021-04-21] MEDS: FUROSEMIDE 40 MG, FUROSEMIDE 20 MG 60 MG PO (08:07)
[2021-04-21] MEDS: Lactulose 20 GM/30 ML CUP 15 GM PO ×3 (08:08→20:04)
[2021-04-21 09:35] LABS: Vancomycin, Trough 11.9 ug/mL (10.0-20.0)
--- NOTE | 2021-04-21 09:55 | W.PALPGNOTE ---
Date of service: 04/21/21 Time of Service: 09:55 Assessment and Plan Assessment and plan (1) Cellulitis of left leg: Status: Acute (2) Sepsis: Status: Acute Qualifiers: Sepsis type: sepsis due to unspecified organism Sepsis acute organ dysfunction status: unspecified Qualified Code(s): A41.9 - Sepsis, unspecified organism (3) Palliative care encounter: Status: Acute Assessment and plan: Mayra is feel much much better. She has high hopes that her [facility] appointment in late April will sign some light on possible treatment for both feet. This is her third episode of sepsis which landed her in the hospital. She feels much better, had a shower and washed her hair. She is content to stay here until the blood cultures return. She is much happier with the Mike wraps rather than the compression devices. Mood is excellent At this point I will not see Mayra during the rest of her admission. She is my primary care patient and I will follow up with her outpatient. Subjective Subjective Interval history since last seen: Mayra states that she is feeling much better. Presently she is waiting for the blood cultures to return prior to making decisions regarding discharge. Last night she had Mike bandage wraps on both legs. This was much much more comfortable than the compression devices that she had previously had. Abdomen is feeling better Pain is well controlled Exam Narrative Exam Narrative: Sitting in a chair, oriented x3, she looks well and wide-awake. She is talking in complete sentences. Her heart rate is wnl. She does have compression bands on both legs. Her feet continue to have the skin changes. Objective Last Vital Signs Temp 98.1 F 04/21/21 07:41 Pulse 91 H 04/21/21 07:41 Resp 16 04/21/21 07:41 BP 109/67 04/21/21 07:41 Pulse Ox 93 04/21/21 07:41 Laboratory Results - last 24 hr 04/21/21 09:11 Vancomycin Trough 11.9
[2021-04-21] MEDS: VANCOMYCIN/WATER (PEG) 1 GM/200 ML BAG IV ×2 (11:28→23:29)
--- NOTE | 2021-04-21 11:31 | CMPROGNOTE_ITS ---
- If Service Date Differs Date of service: 04/21/21 Time of Service: 11:31 Care Management Progress Note S/O: Mayra was sitting up in her chair when CM met with her. She reported that she doesn't feel ready for discharge today because she is still having a lot of pain in her left leg. She stated that her PCP met with her today, Dr. Baron, who saw her for Palliative Care today. Mayra reported that her daughter, who helps her at home, will be working until 7pm today, but she has tomorrow off, so she will be more available to care for her. Per report, she may be changed to oral antibiotics today. CM will continue to follow. A: Mayra is a 66 year old female admitted to [facility] on 04/17/21 for L leg cellulitis, L foot wound, fever. P: Anticipate Mayra will return home when medically cleared. She will be driven home via private vehicle by family. She will follow up with her PCP and [facility]. CM will continue to follow.
[2021-04-21] MEDS: Insulin Aspart 300 UNITS/3 ML PEN SC ×2 (11:58→17:11)
--- NOTE | 2021-04-21 13:10 | IN_ITS ---
Date of service: 04/21/21 Time of Service: 15:10 PT Notes Visit Reasons: L Leg Cellulitis,Left Foot Wound,Fever,AMS Physical Therapy Inpatient Initial Evaluation Date: 04/21/2021 Referring Doctor: Sabino Hooper MD PT Orders: PT CONSULT: Eval/Treat Precautions: Fall. Standard. Activity as tolerated. Patient Profile/Admitting Diagnosis: Mayra is a 66-year-old female with extensive meddical history who presented to the ED on 04/21/2021 with generalized weakness, altered mental status, and red left lower extremity. Patient is diagnosed with pancreatic mass, thromobocytopenia, diabtes mellitus,Cirrhosis, elephantiasis nostra verrucosa with chroninc lymphedema, and sepsis. PMHX: Medical History (Updated 04/17/21 @ 20:57 by Lola Osuna DO) Abdominal pain, chronic, epigastric (03/23/16) Advance directive on file Annual physical exam (02/22/18) Aortic stenosis, severe Bacteremia Bacteremia due to group B Streptococcus Bleeding esophageal varices (03/10/16) Breast mass CAP (community acquired pneumonia) Carpal tunnel syndrome right; s/p release Cellulitis Cellulitis Cervical disc disorder with myelopathy (09/04/12) Chronic epigastric pain (03/23/16) Complicated UTI (urinary tract infection) Diabetic foot infection Discharge planning issues DVT femoral (deep venous thrombosis) with thrombophlebitis DVT prophylaxis Edema, unspecified 06/28/16 B/L Elevated troponin Elevation of level of transaminase and lactic acid dehydrogenase (LDH) Epistaxis Esophageal varices with hemorrhage Fever Fever, unknown origin 04/14/16 Fluid overload Foot pain GI bleed Gram-positive bacteremia Hepatic encephalopathy (03/10/16) Hyperlipidemia (09/04/12) Incisional hernia (01/15/15) Increased body mass index Mild epistaxis 12/21/15 Nausea Pancytopenia Physical deconditioning Pleural effusion Pneumonia Portal hypertension Sepsis Sepsis syndrome Thyroid nodule right; 2008-[facility] [place]; 2.3cm nodule; neg. biopsy Uninodular goiter Tubular adenoma (04/12/13) Surgical History Colonoscopy - IV Sedation (04/12/13) DR. Bhumika CLAYTON Open Carpal Tunnel release RIGHT PROCEDURES OTHER CERVICAL FUS ANT discectomy 2008 [facility] [place]; NEGATIVE THYROID BX S/P carpal tunnel release right S/P cervical spinal fusion anterior; discectomy S/P cervical spinal fusion anterior;discectomy S/P tonsillectomy Status post biopsy of thyroid gland 09/18/08 neg Status post carpal tunnel release Status post cervical spinal arthrodesis Status post tonsillectomy Tonsillectomy Social History/Home Situation: Patient lives with and daughter in a private home with 4 steps to enter and rails on both sides. She is independent with all aspects of ADLs without the need for assistive ambulatory device nor adaptive equipment prior to admission. She has not had any falls for the past 12 months. Equipment Owned/DME: None Subjective: Agreeable to seeing how she does with walking long distance to see how safe she is. Reports 0/10 pain in her L leg and foot. She denies nausea, pain, dizziness, and headache throughout session. She states that she has stopped using her compression garments as she has had quite the difficulty putting them on. She was receptive to trying out a ready wrap garment that can easily be donned and doffed once she goes home. Objective: General Observation: Obese. IV access in R UE. VANESSA wrap seen on L LE and foot. Mental Status: Alert and oriented x4 Pain: 0/10 in L LE ROM: Right Upper Extremity: Shoulder Flexion WFL. Shoulder abduction WFL. Elbow flexion WFL. Wrist flexion WFL. Opening and closing of hand WFL. Left Upper Extremity: Shoulder Flexion WFL. Shoulder abduction WFL. Elbow flexion WFL. Wrist flexion WFL. Opening and closing of hand WFL. Right Lower Extremity: Hip flexion WFL. Hip abduction WFL. Knee flexion WFL. Ankle dorsiflexion WFL. Ankle plantarflexion WFL. Left Lower Extremity: Hip flexion WFL. Hip abduction WFL. Knee flexion WFL. Ankle dorsiflexion WFL. Ankle plantarflexion WFL. Strength: Right Upper Extremity: Shoulder flexors 5/5. Shoulder abductors 5/5. Elbow flexors 5/5. Elbow extensors 5/5. Gold Marker strong. Left Upper Extremity: Shoulder flexors 5/5. Shoulder abductors 5/5. Elbow flexors 5/5. Elbow extensors 5/5. Gold Marker strong. Right Lower Extremity: Hip flexors 4/5. Hip abductors 4/5. Knee flexors 4/5. Knee extensors 4/5. Ankle dorsiflexors 4/5. Ankle plantarflexors 4/5. Left Lower Extremity: Hip flexors 4/5. Hip abductors 4/5. Knee flexors 4/5. Knee extensors 4/5. Ankle dorsiflexors 4/5. Ankle plantarflexors 4/5. Sensation: Intact as to pain and pressure on bilateral lower extremities, reports frequent sensation on the soles of the feet and the dorsum of the toes. Bed Mobility/Transfers: Sit to stand supervision Stand to sit supervision Bed to chair standby assist Chair to bed standby assist Gait: Patient tolerated level surface ambulation of 175 feet + 75 feet without an AD with standby assist. Reciprocal swing through gait pattern. No antalgic gait seen. Did attempt to reach out or the wall for support x 3. Mild SOB during activity requiring standing rest for about 3 minutes. Gait speed decreased. Balance: Static Sitting: Normal Dynamic Sitting: Normal Static Standing: Good Dynamic Standing: Good Special Tests: Mobility Limitations Standardized Measure [facility] AM-PAC 6 clicks Basic Mobility Inpatient Short Form: Raw Score: 24 CMS Score: 0 % deficit Informed Consent/Education: Patient was instructed in purpose of PT consult and plan of care. Agreeable to proceed with established PT POC to achieve personal goals. Assessment: Mayra may benefit from the use of a front-wheeled walker for distances longer than 30 feet to reduce fatigue and SOB. Will plan on seeing patient before she leaves tomorrow to train with stairs and with some more ambulation on level surface with a SPC. Patient presents with clinical signs and symptoms consistent with current/admitting diagnoses that have resulted to mobility limitations, gait instability, and generalized weakness as demonstrated by the following impairment level findings: 1. Decreased strength to B LE major muscle groups 2. Swelling and pain B LE 3. Impaired activity tolerance 4. Mild shortness of breath with activity Impairments are contributing to the following functional limitations: 1. Inability to safely ambulate without dyspnea and fatigue 2. Increase completion time for mobility ADL performance 3. Inability to negotiate steps alone safely Patient is assessed as a 49525 moderate complexity based on the following: History: 66-year-old female with impairment level findings, functional limitations, and past medical history as listed above Examination: Demonstrable impairment in strength, balance, and activity tolerance with underlying impairments and functional limitations as documented above Presentation: Evolving Decision Makin moderate complexity Goals: Goals X3 days 1. Supine-Sit independent 2. Sit-Supine independent 3. Sit-Stand independent 4. Stand-Sit independent 5. Bed-Chair independent 6. Chair-Bed independent 7. Independent gait on level surface with use of SPC for at least 300 feet without report of fatigue, pain, nor dyspnea 8. Independent stair negotiation while holding onto bilateral rails for at least 5 steps without report of pain nor dyspnea 19Good static and dynamic standing balance/tolerance Plan of Care/Treatment Plan: 1-2x/day, 7 days/week x 1 week. Plan of care has been reviewed with the SEPARATOR OPERATOR [employer] providing the service under Physical Therapy direction. Initiate Physical Therapy intervention for strengthening, bed mobility, transfers, gait, stairs, balance training, use of assistive device. DISCHARGE RECOMMENDATIONS: Home when medically cleared. Consider prescription for CircAid compression garments that HHPT may be able to assit provure for patient to reduce limb girth and potentially prevent recurrent of skin infections. TREATMENT CODE/TIME: 73207 x 18 minutes beginning at 13:10 PM. Thank you very much for this referral. Gill Hill PT, DPT, CLT [facility] [place], [place]
[2021-04-21] MEDS: Furosemide 20 MG TAB PO (13:24)
[2021-04-21] MEDS: oxyCODONE 5 MG TAB 2.5 MG PO (13:39)
[2021-04-21 16:14] VITALS: BP 131/69; PULSE 88; RESP 20; TEMP 36.5; O2SAT 94
[2021-04-22 00:15] VITALS: BP 127/57; PULSE 82; RESP 17; TEMP 36.6; O2SAT 95
[2021-04-22 07:33] VITALS: BP 129/68; PULSE 92; RESP 18; TEMP 36.5; O2SAT 95
[2021-04-22] MEDS: Rifaximin 550 MG TAB PO (07:55)
[2021-04-22] MEDS: Sucralfate 1 GM TAB PO ×2 (07:55→11:49)
[2021-04-22] MEDS: Pregabalin 50 MG CAP 100 MG PO ×2 (07:55→13:57)
[2021-04-22] MEDS: Zinc Sulfate 220 MG TAB PO (07:55)
[2021-04-22] MEDS: Lactulose 20 GM/30 ML CUP 15 GM PO ×2 (07:55→13:57)
[2021-04-22] MEDS: amLODIPine 5 MG TAB PO (07:56)
[2021-04-22] MEDS: Spironolactone 50 MG TAB PO (07:56)
[2021-04-22] MEDS: Pantoprazole 40 MG TABCR PO (07:56)
[2021-04-22] MEDS: FUROSEMIDE 40 MG, FUROSEMIDE 20 MG 60 MG PO (07:56)
[2021-04-22] MEDS: Ascorbic Acid 500 MG TAB PO (07:56)
[2021-04-22] MEDS: Normal Saline Flush 10 ML SYR IVP ×3 (07:57→11:07)
[2021-04-22] MEDS: Insulin Aspart 300 UNITS/3 ML PEN SC ×2 (07:57→11:49)
[2021-04-22] MEDS: Normal Saline 500 ML 30 ML IV (09:53)
--- NOTE | 2021-04-22 10:16 | PT.INTREAT ---
Date of service: 04/22/21 Time of Service: 10:00 PT Notes Visit Reasons: L Leg Cellulitis,Left Foot Wound,Fever,AMS Inpatient Physical Therapy Treatment Note [facility] Date: 04/22/2021 PRECAUTIONS: Activity as tolerated SUBJECTIVE: Mayra states that she is exhausted today, but is looking forward to being discharged to home later today. She reports that she does not walk much at home, and that her daughter and are there to help her if she needs it. OBJECTIVE: Patient observed ambulating within room independently without assistive device, without difficulty. PAIN: No c/o pain BED MOBILITY/TRANSFERS Sit-stand: I Stand-sit: I Bed-Chair: I Chair-bed: I GAIT Assistive Device: No AD Weight bearing: Full Assist: I Distance: 200' STAIRS: Up/down 3x4 and 2x6 using B rails and a step-to pattern independently ASSESSMENT: Patient was able to tolerate the addition of stair training, demonstrating independent stair negotiation. She demonstrates independence with transfers and ambulation without assistive device at this time. PLAN: Discharge to home later today, per provider. TREATMENT CODE/TIME: 10 minutes; 47262 (10:00)
[2021-04-22] MEDS: VANCOMYCIN/WATER (PEG) 1 GM/200 ML BAG IV (11:07)
--- NOTE | 2021-04-22 11:23 | W.PM.DS.N ---
Date of service: 04/22/21 Time of Service: 11:23 DS: Diagnosis Discharge Diagnosis (1) Cellulitis of left leg: Status: Acute (2) Sepsis: Status: Acute (3) Palliative care encounter: Status: Acute Discharge Plan Disposition Patient Disposition: HOME Condition: Stable Discharge Details Reason For Visit: L Leg Cellulitis,Left Foot Wound,Fever,AMS Admit Date/Time: 04/17/21 18:51 Admit Provider: Sabino Hooper Attending Provider: Sabino Hooper Primary Care Provider: Malu Baron Hospital Course Hospital Course: This is a 66 yo female with a PMH of chronic lympedema of BLEs, DM2, HTN, recurrent LE cellulitis, cirrhosis, thrombocytopenia, CHF, hematuria, aortic stenosis. She was last hospitalized at [facility] in December of this year for cellulitis/bacteremia. She presented after her daughter noted an alteration in her mental status / confusion. She also endorsed ongoing redness of the LLE/foot with an ulceration on the dorsal aspect of the left foot. In the ED she was noted to be confused and wasn't answering questions. Her oral temp was 99F with a HR of 110. Initial BP 131/40. SBP maría elena in the ED of 99. The wound on the dorsum of the left foot was foul-smelling with a yellow discharge. Her WBC count was not elevated; 10.00. VBG lactate was eolevated at 4.6. Lytes normal. BUN 21. Creatinine 1.1. Glucose 167. Total bili 5.8 (4.4 on 01/03/21). Ammonia 54. Vancomyciin given in the ED. She later endorsed taking her lactulose as prescribed. It was difficult to assess whether any lower ext erythema was d/t cellulitis vs venous stasis. It did however improve with antibiotics and VANESSA wraps/elevation. The WBC count normalized and she remained afebrile. She will d/c to home on a 5 day course of cephalexin. She does have a dermatology appt in [place] scheduled to evaluate her skin changes from her lymphedema/elephantitis. F/U with PCP in 1-2 weeks. Home Meds and New Rx's Prescriptions: New cephalexin 500 mg capsule 500 mg PO TID Qty: 15 RF: 0 Continued (DME) Contour, LLCTouch Ultra Test strip 1 ea Miscellaneous QID Qty: 300 RF: 5 amlodipine 5 mg tablet 5 mg PO DAILY Qty: 90 RF: 5 Xifaxan 550 mg tablet 550 mg PO BID Qty: 180 RF: 2 sucralfate 1 gram tablet 1 g PO AC & HS Qty: 360 RF: 12 furosemide 20 mg tablet See Rx Instructions PO DAILY RF: 0 ferrous sulfate [iron] 325 mg (65 mg iron) tablet 325 mg PO DAILY RF: 0 pantoprazole 40 mg tablet,delayed release (DR/EC) 40 mg PO DAILY Qty: 180 RF: 3 ammonium lactate 12 % lotion 1 applic topical BID RF: 0 oxycodone 5 mg tablet 10 mg PO QHS MDD 2 PRN (Reason: pain) Qty: 30 RF: 0 zinc sulfate 220 MG capsule 220 mg PO DAILY Qty: 90 RF: 3 (DME) pen needle, diabetic [BD Ultra-Fine Orig Pen Needle] 1 EACH needle 1 ea Miscellaneous BID Qty: 180 RF: 3 triamcinolone acetonide 0.1 % cream 1 applic TP QID Qty: 80 RF: 1 ondansetron HCl [Zofran] 4 mg tablet 4 mg PO DAILY PRN (Reason: nausea and vomiting) Qty: 90 RF: 3 lactulose 20 gram/30 mL solution 10 g PO TID Qty: 3000 RF: 5 pregabalin 100 mg capsule 100 mg PO TID Qty: 270 RF: 4 spironolactone 50 mg tablet 50 mg PO DAILY Qty: 90 RF: 4 fluocinonide 0.05 % ointment 1 applic TOPICAL DAILY RF: 0 mupirocin 2 % ointment 0 applic TOPICAL DAILY RF: 0 ascorbic acid (vitamin C) [Vitamin C] 500 mg Tablet 500 mg PO DAILY Qty: 30 RF: 0 Discharge Instructions Instructions: Cellulitis (GEN) Stand Alone Forms: Nursing Discharge Form Referrals: Malu Baron MD, [place] [Primary Care Provider] - 04/27/21 3:20 pm Activity:: Activity as Tolerated Equipment/Supplies:: No Equipment Needed Diet:: Diabetic Diet Discharge Orders Discharge Orders: Discharge Order (Routine); Ordered 04/22/21 Ordered By: Sabino Hooper Discharge Data Discharge Date/Time-TO BE ENTERED AT DEPARTURE: 04/22/21 14:25 DS: Summary Time Spent with Patient providing and/or coordinating discharge services: Greater than 30 minutes Status at Discharge Functional status at discharge: independent ambulation Overall status at discharge: patient is back to baseline Mental Status: mental status grossly normal Speech and Movement: slowed movement (Baseline) Mood: congruent mood Affect: normal affect Exam Psych Mental Status: mental status grossly normal Speech and Movement: slowed movement (Baseline) Mood: congruent mood Affect: normal affect DS: Data Vitals/I&O Vitals and I&O: Vital Signs Temperature 36.5 C 04/22/21 07:33 Temperature Source Tympanic 04/22/21 07:33 Pulse 92 H 04/22/21 07:33 Pulse Rhythm Regular 04/22/21 03:46 Respiratory Rate 18 04/22/21 07:33 Respiratory Effort Non-Labored 04/22/21 03:46 Respiratory Depth Normal 04/22/21 03:46 Respiratory Pattern Normal 04/22/21 03:46 Blood Pressure 129/68 04/22/21 07:33 Blood Pressure Mean 55 04/17/21 20:01 Blood Pressure Position Supine 04/17/21 15:39 Pulse Oximetry 95 04/22/21 07:33 Oxygen Delivery Method Room Air 04/22/21 07:33 Oxygen Flow Rate 0 04/22/21 07:33 Pain Level 0 04/22/21 07:33 Comment 04/18/21 23:12 Intake & Output 04/21/21 04/21/21 04/22/21 11:59 23:59 11:59 Intake Total 460 / 1350 890 / 1350 320 / 320 Output Total 1925 / 3075 1150 / 3075 900 / 900 Balance -1465 / -1725 -260 / -1725 -580 / -580 Weight 104.7 kg Intake: IV 220 / 630 410 / 630 320 / 320 Oral 240 / 720 480 / 720 Output: Urine 1925 / 3075 1150 / 3075 900 / 900 Other: Urine Color Straw Yellow Yellow Urine Appearance Clear Clear Clear Urine Odor Normal Normal Normal Comment Void x2 in the toilet. 400 mL from first void; 350 mL from second void. patient has been voiding independently into the bathroom Stool Size Moderate Small Stool Characteristics Soft Soft Formed Formed Brown Voiding Methods Toilet Toilet Toilet Data Completed and Pending Labs on day of discharge: Preliminary micro results at discharge 04/19/21 06:58 Blood Culture - Preliminary Blood NO GROWTH 72 HOURS 04/19/21 06:47 Blood Culture - Preliminary Blood NO GROWTH 72 HOURS 04/17/21 15:45 Blood Culture - Preliminary Blood NO GROWTH 96 HOURS 04/17/21 17:33 Blood Culture - Preliminary Blood Staphylococcus Epidermidis [facility] Medical History (Updated 04/20/21 @ 12:55 by Malu Baron MD, [place]) Abdominal pain, chronic, epigastric (03/23/16) Advance directive on file Annual physical exam (02/22/18) Aortic stenosis, severe Bacteremia Bacteremia due to group B Streptococcus Bleeding esophageal varices (03/10/16) Breast mass CAP (community acquired pneumonia) Carpal tunnel syndrome right; s/p release Cellulitis Cellulitis Cervical disc disorder with myelopathy (09/04/12) Chronic epigastric pain (03/23/16) Complicated UTI (urinary tract infection) Diabetic foot infection Discharge planning issues DVT femoral (deep venous thrombosis) with thrombophlebitis DVT prophylaxis DVT prophylaxis Edema, unspecified 06/28/16 B/L Elevated troponin Elevation of level of transaminase and lactic acid dehydrogenase (LDH) Epistaxis Esophageal varices with hemorrhage Fever Fever, unknown origin 04/14/16 Fluid overload Foot pain GI bleed Gram-positive bacteremia Hepatic encephalopathy (03/10/16) Hyperlipidemia (09/04/12) Incisional hernia (01/15/15) Increased body mass index Mild epistaxis 12/21/15 Nausea Pancytopenia Physical deconditioning Pleural effusion Pneumonia Portal hypertension Sepsis Sepsis Sepsis syndrome Thyroid nodule right; 2008-[facility] [place]; 2.3cm nodule; neg. biopsy Uninodular goiter Tubular adenoma (04/12/13) Surgical History Colonoscopy - IV Sedation (04/12/13) DR. Bhumika CLAYTON Open Carpal Tunnel release RIGHT PROCEDURES OTHER CERVICAL FUS ANT discectomy 2008 [facility] [place]; NEGATIVE THYROID BX S/P carpal tunnel release right S/P cervical spinal fusion anterior; discectomy S/P cervical spinal fusion anterior;discectomy S/P tonsillectomy Status post biopsy of thyroid gland 09/18/08 neg Status post carpal tunnel release Status post cervical spinal arthrodesis Status post tonsillectomy Tonsillectomy Family History Mother Pancreatic cancer Father Diabetes Essential hypertension Stroke Sister Heart disease Brother Bone cancer Liver cancer Maternal Grandfather No problems noted. Paternal Grandfather No problems noted. Maternal Grandmother , OLD AGE at age 89. No problems noted. Paternal Grandmother Breast cancer Sister Diabetes Colon cancer Rectal cancer Sister Diabetes Son No problems noted. Son No problems noted. Daughter No problems noted. Daughter Alcohol abuse Asthma Social History Smoking/Tobacco Use Status: Former Tobacco Use Tobacco: How many years used: 2 Second Hand Exposure: Yes Smoking risk assessment performed?: Yes Alcohol Intake: never Drug use: Never Counseling given: No Household members: spouse and children Housing: house Communication Needs: None Do you need help understanding health information?: Rarely Pets and animals: Yes Pets and animals: dog(s) Sexually active: No Do you think of yourself as: straight/heterosexual Current gender identity: female What is your relationship status?: How often do you talk on the phone with friends or family?: three or more times per week How often do you get together with friends or relatives?: once per week How often do you attend religious or gnosticist services?: 1-3 times per year Do you belong to any clubs or organized social groups?: no Panel score (0-1 are the most socially isolated patients): 2 What type of physical activity do you participate in: decline to answer Duration: < 15 minutes/day Frequency: 1-2 times per week Lyubov/Lutheran: Samaritan Special lyubov needs: No Seatbelt use: always Helmet use: No Drive intox or ride w/intox coach tour driver: No Do you feel safe at home: Yes Do you feel safe in your relationship?: Yes
--- NOTE | 2021-04-22 11:45 | PDOC.CMDIS ---
- If Service Date Differs Date of service: 04/22/21 Time of Service: 11:45 LACE Index Scoring Tool - Questions: Length of Stay (in days): 4 - 6 Acuity (Admit via E.D.?): Yes Comorbidities: Diabetes w/o Complication, Any Tumor, Liver or Renal Disease E.D. Visits: 4 - Answers: Total Score: 16 Risk of Readmission: High Risk Care Management Discharge Reason for Hospitalization: L leg cellulitis, left foot wound, fever Discharge Plan: Mayra will return home today with no new services. Her daughter will drive her home via private vehicle. She will follow up with her PCP and discharge plan of care. She is happy to be going home. Patient/Family Education Needs: Review discharge instructions regarding activity levels and medications, discussion of self care needs including ask me three.
[2021-04-22] MEDS: Furosemide 20 MG TAB PO (13:57)
--- NOTE | 2021-04-23 18:40 | INDS_ITS ---
Date of service: 04/23/21 PT Notes Visit Reasons: L Leg Cellulitis,Left Foot Wound,Fever,AMS Physical Therapy Inpatient Discharge Summary Date: 04/23/2021 Date of service: 04/21/2021 through 04/22/2021 This is a clinical summary of care provided for the duration of dates listed above. No charge was made in the completion of this documentation. Referring Doctor: Sabino Hooper MD PT Orders: PT CONSULT: Eval/Treat Precautions: Fall. Standard. Activity as tolerated. Patient Profile/Admitting Diagnosis: Mayra is a 66-year-old female with extensive meddical history who presented to the ED on 04/21/2021 with generalized weakness, altered mental status, and red left lower extremity. Patient is diagnosed with pancreatic mass, thromobocytopenia, diabtes mellitus,Cirrhosis, elephantiasis nostra verrucosa with chroninc lymphedema, and sepsis. PMHX: Medical History (Updated 04/17/21 @ 20:57 by Lola Osuna DO) Abdominal pain, chronic, epigastric (03/23/16) Advance directive on file Annual physical exam (02/22/18) Aortic stenosis, severe Bacteremia Bacteremia due to group B Streptococcus Bleeding esophageal varices (03/10/16) Breast mass CAP (community acquired pneumonia) Carpal tunnel syndrome right; s/p release Cellulitis Cellulitis Cervical disc disorder with myelopathy (09/04/12) Chronic epigastric pain (03/23/16) Complicated UTI (urinary tract infection) Diabetic foot infection Discharge planning issues DVT femoral (deep venous thrombosis) with thrombophlebitis DVT prophylaxis Edema, unspecified 06/28/16 B/L Elevated troponin Elevation of level of transaminase and lactic acid dehydrogenase (LDH) Epistaxis Esophageal varices with hemorrhage Fever Fever, unknown origin 04/14/16 Fluid overload Foot pain GI bleed Gram-positive bacteremia Hepatic encephalopathy (03/10/16) Hyperlipidemia (09/04/12) Incisional hernia (01/15/15) Increased body mass index Mild epistaxis 12/21/15 Nausea Pancytopenia Physical deconditioning Pleural effusion Pneumonia Portal hypertension Sepsis Sepsis syndrome Thyroid nodule right; 2008-[facility] [place]; 2.3cm nodule; neg. biopsy Uninodular goiter Tubular adenoma (04/12/13) Surgical History Colonoscopy - IV Sedation (04/12/13) DR. Bhumika CLAYTON Open Carpal Tunnel release RIGHT PROCEDURES OTHER CERVICAL FUS ANT discectomy 2008 [facility] [place]; NEGATIVE THYROID BX S/P carpal tunnel release right S/P cervical spinal fusion anterior; discectomy S/P cervical spinal fusion anterior;discectomy S/P tonsillectomy Status post biopsy of thyroid gland 09/18/08 neg Status post carpal tunnel release Status post cervical spinal arthrodesis Status post tonsillectomy Tonsillectomy Social History/Home Situation: Patient lives with and daughter in a private home with 4 steps to enter and rails on both sides. She is independent with all aspects of ADLs without the need for assistive ambulatory device nor adaptive equipment prior to admission. She has not had any falls for the past 12 months. Equipment Owned/DME: None Subjective: NT. See most recent [facility] notes. Objective: General Observation: NT. See most recent [facility] notes. Mental Status: NT. See most recent [facility] notes. Pain: NT. See most recent [facility] notes. ROM: Right Upper Extremity: Shoulder Flexion WFL. Shoulder abduction WFL. Elbow flexion WFL. Wrist flexion WFL. Opening and closing of hand WFL. Left Upper Extremity: Shoulder Flexion WFL. Shoulder abduction WFL. Elbow flexion WFL. Wrist flexion WFL. Opening and closing of hand WFL. Right Lower Extremity: Hip flexion WFL. Hip abduction WFL. Knee flexion WFL. Ankle dorsiflexion WFL. Ankle plantarflexion WFL. Left Lower Extremity: Hip flexion WFL. Hip abduction WFL. Knee flexion WFL. Ankle dorsiflexion WFL. Ankle plantarflexion WFL. Strength: Right Upper Extremity: Shoulder flexors 5/5. Shoulder abductors 5/5. Elbow flexors 5/5. Elbow extensors 5/5. [employer] strong. Left Upper Extremity: Shoulder flexors 5/5. Shoulder abductors 5/5. Elbow flexors 5/5. Elbow extensors 5/5. [employer] strong. Right Lower Extremity: Hip flexors 4/5. Hip abductors 4/5. Knee flexors 4/5. Knee extensors 4/5. Ankle dorsiflexors 4/5. Ankle plantarflexors 4/5. Left Lower Extremity: Hip flexors 4/5. Hip abductors 4/5. Knee flexors 4/5. Knee extensors 4/5. Ankle dorsiflexors 4/5. Ankle plantarflexors 4/5. Sensation: Intact as to pain and pressure on bilateral lower extremities, reports frequent sensation on the soles of the feet and the dorsum of the toes. Bed Mobility/Transfers: Sit to stand independent Stand to sit independent Bed to chair independent Chair to bed independent Gait: Patient tolerated level surface ambulation of 50 feet + 200 feet without an AD with standby assist. Reciprocal swing through gait pattern. No antalgic gait seen. Balance: Static Sitting: Normal Dynamic Sitting: Normal Static Standing: Good Dynamic Standing: Good Assessment: Per session with [facility], patient has regained independent level ambulation without an assistive device up to 200 feet without any issues with fatigue or SOB. Goals: Goals X3 days 1. Supine-Sit independent MET 2. Sit-Supine independent MET 3. Sit-Stand independent MET 4. Stand-Sit independent MET 5. Bed-Chair independent MET 6. Chair-Bed independent MET 7. Independent gait on level surface with use of SPC for at least 300 feet without report of fatigue, pain, nor dyspnea NOT MET 8. Independent stair negotiation while holding onto bilateral rails for at least 5 steps without report of pain nor dyspnea MET 19Good static and dynamic standing balance/tolerance DISCHARGE RECOMMENDATIONS: Home when medically cleared. Consider prescription f or CircAid compression garments that HHPT may be able to assist pro further likely empiric cure for patient to reduce limb girth and potentially prevent recurrent of skin infections. TREATMENT CODE/TIME: [place] Thank you very much for this referral. Gill Hill PT, DPT, CLT [facility] [place], [place]
== END 2021-04-22 14:25 | disposition home or self-care (01) | DRG 872 ==
LOC: ER 20:07 → MS 20:57
PROVIDERS: Internal Medicine; Nurse Practitioner Family; Admitting Provider Family Medicine; Emergency Provider Physician Assistant; PCP Family Medicine; Visit Provider Family Medicine
DX: A41.9 Sepsis, unspecified organism (principal); L03.116 Cellulitis of left lower limb; M50.00 Cervical disc disorder with myelopathy, unspecified cervical region; K76.6 Portal hypertension; E11.628 Type 2 diabetes mellitus with other skin complications; E11.621 Type 2 diabetes mellitus with foot ulcer; E66.9 Obesity, unspecified; I89.0 Lymphedema, not elsewhere classified; E78.5 Hyperlipidemia, unspecified; Z68.36 Body mass index [BMI] 36.0-36.9, adult; I35.0 Nonrheumatic aortic (valve) stenosis; Z86.718 Personal history of other venous thrombosis and embolism; Z98.1 Arthrodesis status; Z87.891 Personal history of nicotine dependence; K74.60 Unspecified cirrhosis of liver; D69.59 Other secondary thrombocytopenia; I50.9 Heart failure, unspecified; I11.0 Hypertensive heart disease with heart failure; Z20.822 Contact with and (suspected) exposure to COVID-19; Z79.84 Long term (current) use of oral hypoglycemic drugs; K86.9 Disease of pancreas, unspecified
CPT/HCPCS: 36410; 36415; 80048; 80053; 84145; 85652; 87040; 87077; 87635; 96365; 97161; 97530; 99285; 70450; 73701; 80202; 82140; 83036; 83605; 83735; 85025; 86140; 87070; 87186; 87205; 99223; 99232; 99233; 99239; J0131; J1956; J2543; J3475; J3490

== ENCOUNTER 2021-04-27 17:19 | Outpatient (REF) | payer MEDICARE, BC, SELFPAY ==
[2021-04-27 19:23] LABS: *AMPHETAMINES SCREEN URINE Negative (Negative); *BARBITURATES SCREEN URINE Negative (Negative); *BENZODIAZEPINES SCREEN URINE Negative (Negative); Cannabinoids THC Negative (Negative); Cocaine Screen,Urine Negative (Negative); METHADONE URINE SCREEN Negative (Negative); OPIATES URINE SCREEN Negative (Negative)
[2021-04-27 19:24] LABS: Tricyclic Antidepressants Negative (Negative)
== END 2021-04-27 17:20 | disposition home or self-care (01) ==
LOC: LBN 17:19
PROVIDERS: PCP Family Medicine; Visit Provider Family Medicine
DX: G89.4 Chronic pain syndrome (principal); Z02.83 Encounter for blood-alcohol and blood-drug test
CPT/HCPCS: 80307

== ENCOUNTER 2021-05-06 14:20 | Inpatient (IN) | payer MEDICARE, BC, SELFPAY ==
[2021-05-06 14:49] VITALS: BP 121/44; PULSE 84; RESP 20; TEMP 36.8; O2SAT 90
--- NOTE | 2021-05-06 15:30 | RT.EKG_ITS ---
APPROVED REPORT Exam: Resting ECG Reason for Exam: shortness of breath Patient Location: E HR:82 bpm ECG Measurements Heart Rate 82 AXIS LA 136 P 69 QRSd 112 QRS 55 QT 407 T -25 QTc 476 Conclusion Sinus rhythm...normal P axis, V-rate 60- 99 Probable left atrial enlargement...P >50mS, <-0.10mV V1 Inferior infarct, age indeterminate...Q>35mS, T neg, II III aVF Nonspecific T abnormalities, lateral leads...T <-0.10mV, I aVL V5 V6
--- NOTE | 2021-05-06 15:33 | W.ED.GENAD ---
Discharge Plan Disposition Patient Disposition: [facility] INPATIENT Condition: Stable Discharge Details Chief Complaint: RespSymp Clinical Impression: Cirrhosis, Liver mass, Pleural effusion, Pulmonary edema, Hypoxia Primary Care Provider: Malu Baron ED Provider: Chilo Linares [place] Meds and New Rx's Prescriptions: No Action (DME) OneTouch Ultra Test strip 1 ea Miscellaneous QID Qty: 300 RF: 5 amlodipine 5 mg tablet 5 mg PO DAILY Qty: 90 RF: 5 Xifaxan 550 mg tablet 550 mg PO BID Qty: 180 RF: 2 sucralfate 1 gram tablet 1 g PO AC & HS Qty: 360 RF: 12 furosemide 20 mg tablet See Rx Instructions PO DAILY RF: 0 ferrous sulfate [iron] 325 mg (65 mg iron) tablet 325 mg PO DAILY RF: 0 ammonium lactate 12 % lotion 1 applic topical BID RF: 0 zinc sulfate 220 MG capsule 220 mg PO DAILY Qty: 90 RF: 3 (DME) pen needle, diabetic [BD Ultra-Fine Orig Pen Needle] 1 EACH needle 1 ea Miscellaneous BID Qty: 180 RF: 3 triamcinolone acetonide 0.1 % cream 1 applic TP QID Qty: 80 RF: 1 ondansetron HCl [Zofran] 4 mg tablet 4 mg PO DAILY PRN (Reason: nausea and vomiting) Qty: 90 RF: 3 lactulose 20 gram/30 mL solution 10 g PO TID Qty: 3000 RF: 5 pregabalin 100 mg capsule 100 mg PO TID Qty: 270 RF: 4 spironolactone 50 mg tablet 50 mg PO DAILY Qty: 90 RF: 4 pantoprazole 40 mg tablet,delayed release (DR/EC) 40 mg PO DAILY Qty: 180 RF: 3 oxycodone 5 mg tablet 10 mg PO QHS MDD 2 PRN (Reason: pain) Qty: 30 RF: 0 fluocinonide 0.05 % ointment 1 applic TOPICAL DAILY RF: 0 mupirocin 2 % ointment 0 applic TOPICAL DAILY RF: 0 ascorbic acid (vitamin C) [Vitamin C] 500 mg Tablet 500 mg PO DAILY Qty: 30 RF: 0 cephalexin 500 mg capsule 500 mg PO TID Qty: 15 RF: 0 Medical Decision Making 66 yo female with a PMH of chronic lympedema of BLEs, DM2, HTN, recurrent LE cellulitis, cirrhosis CHF, hematuria, aortic stenosis who comes in with shortness of breath, cough and weakness for a day. She denies fevers, chills, abdomen pain, n/v, diaphoresis. On exam she is noted to have room air saturation of 90%, clear lungs, no jvd or leg swelling. Given her cough and shortness of breath as well as her hypoxia, concern for possible PE vs pneumonia vs covid, will obtain labs to evaluate for anemia, electrolyte abnormality, ecg and toponin and obtain CTA to evaluate for pe vs pneumonia lbs show troponin of 0.2 and seems like she has chronic elevation of her troponin continues to deny chest pain/pressure. Her ct shows pulmonary edema and pleural effusions, no pe. Covid negative. She does have a lesion in the liver that is likely cancer and has been seen on prior ct's, advised of this and will need further workup and referral. SHe is requiring o2, discussed with hospitalist who accepts for admission. Also noted to have evidence of a uti Differential Diagnosis Differential Diagnosis: covid, pneumonia, chf Medical Records Medical records reviewed: Yes I reviewed the patient's medical records. Imaging Data Radiologic Study: Attestation: I personally reviewed and interpreted this imaging study as follows: Imaging: CT Scan Radiologist's impression: IMPRESSION: 1. No pulmonary embolism 2. Interval increase in size of a right hepatic mass most suggestive of a primary hepatocellular carcinoma in the background of chronic cirrhosis. Adjacent TIPS shunt. Splenomegaly. 3. Small to moderate bilateral layering pleural effusions with adjacent subsegmental atelectasis. Interstitial pulmonary edema and cardiomegaly suggestive of congestive heart failure. 4. A 1.1 cm oval lesion in the right T2 vertebral body. Attention to this finding is suggested on followup to exclude osseous metastasis from HCC. Lab Data Lab results reviewed: Yes I reviewed the patient's lab results. ECG Data Attestation: I personally reviewed and interpreted this ECG (s) as follows: Prior ECG tracings: available for review Interpretation: sinus rhythm, rate of 82, no acute st t wave ischemic findings HPI General Date/Time Provider Initiated Documentation: 05/06/21 15:13. Limitations to Documentation: no limitations. Information obtained by: patient. History of Present Illness 66 year old F presents to the emergency department with the chief complaint of shortness of breath, described as moderate, Patient started experiencing this day(s) (1) and it has been constant. No relieving factors improve symptom(s), No exacerbating factors reported . Patient notes cough. Patient did receive the following treatments prior to arrival, none Related Data Home Medications Medication Instructions Recorded Confirmed zinc sulfate 220 mg PO DAILY #90 tab-cap 01/10/17 05/06/21 pen needle, diabetic [BD #180 12/18/17 04/27/21 Ultra-Fine Orig Pen Needle] ferrous sulfate 325 mg (65 mg 325 mg PO DAILY tab 06/11/18 05/06/21 iron) tablet blood sugar diagnostic #300 strip 09/13/18 04/27/21 amlodipine 5 mg tablet 5 mg PO DAILY #90 tab 04/21/20 05/06/21 ammonium lactate 12 % lotion 1 applic TOPICAL BID 06/08/20 05/06/21 triamcinolone acetonide 0.1 % 1 applic TP QID #80 gm 07/12/20 05/06/21 topical cream ondansetron HCl 4 mg tablet 4 mg PO DAILY PRN #90 tab-cap 07/29/20 05/06/21 fluocinonide 1 applic TOPICAL DAILY 08/07/20 05/06/21 mupirocin 0 applic TOPICAL DAILY 08/07/20 05/06/21 ascorbic acid (vitamin C) [Vitamin 500 mg PO DAILY #30 tab 08/10/20 05/06/21 C] rifaximin 550 mg tablet 550 mg PO BID #180 tab 10/05/20 05/06/21 sucralfate 1 gram tablet 1 g PO AC & HS #360 tab 10/05/20 05/06/21 lactulose 20 gram/30 mL oral 10 g PO TID #3000 ml 11/18/20 05/06/21 solution pregabalin 100 mg capsule 100 mg PO TID #270 cap 11/24/20 05/06/21 furosemide 20 mg tablet See Rx Instructions PO DAILY 01/26/21 05/06/21 spironolactone 50 mg tablet 50 mg PO DAILY #90 tab 04/12/21 05/06/21 cephalexin 500 mg PO TID #15 cap 04/22/21 04/27/21 oxycodone 5 mg tablet 10 mg PO QHS PRN #30 tab MDD 2 08/16/21 08/19/21 pantoprazole 40 mg tablet,delayed 40 mg PO DAILY #180 tab 05/03/21 05/06/21 release Previous Rx's Medication Instructions Recorded pen needle, diabetic [BD #180 12/18/17 Ultra-Fine Orig Pen Needle] blood sugar diagnostic #300 strip 09/13/18 amlodipine 5 mg tablet 5 mg PO DAILY #90 tab 04/21/20 triamcinolone acetonide 0.1 % 1 applic TP QID #80 gm 07/12/20 topical cream ondansetron HCl 4 mg tablet 4 mg PO DAILY PRN #90 tab-cap 07/29/20 ascorbic acid (vitamin C) [Vitamin 500 mg PO DAILY #30 tab 08/10/20 C] rifaximin 550 mg tablet 550 mg PO BID #180 tab 10/05/20 sucralfate 1 gram tablet 1 g PO AC & HS #360 tab 10/05/20 lactulose 20 gram/30 mL oral 10 g PO TID #3000 ml 11/18/20 solution pregabalin 100 mg capsule 100 mg PO TID #270 cap 11/24/20 spironolactone 50 mg tablet 50 mg PO DAILY #90 tab 04/12/21 cephalexin 500 mg PO TID #15 cap 04/22/21 oxycodone 5 mg tablet 10 mg PO QHS PRN #30 tab MDD 2 05/03/21 pantoprazole 40 mg tablet,delayed 40 mg PO DAILY #180 tab 05/03/21 release Allergies Allergy/AdvReac Type Severity Reaction Status Date / Time gabapentin Allergy Intermediate Local Unverified 05/06/21 14:53 reaction on skin lisinopril AdvReac Itching Verified 05/06/21 14:53 General Stated Complaint: RespSymp JÚNIOR: 2 Review of Systems All systems reviewed & are unremarkable except as noted in HPI and below Constitutional Constitutional: Denies chills and Denies fever(s) Cardiovascular Cardiovascular: Denies chest pain Gastrointestinal Gastrointestinal: Denies abdominal pain, Denies nausea and Denies vomiting Musculoskeletal Musculoskeletal: Denies joint swelling Psychiatric Psychiatric: Denies depression [facility] Medical History (Updated 05/06/21 @ 18:44 by Chilo Linares MD) Abdominal pain, chronic, epigastric (03/23/16) Advance directive on file Annual physical exam (02/22/18) Aortic stenosis, severe Bacteremia Bacteremia due to group B Streptococcus Bleeding esophageal varices (03/10/16) Breast mass CAP (community acquired pneumonia) Carpal tunnel syndrome right; s/p release Cellulitis Cellulitis Cervical disc disorder with myelopathy (09/04/12) Chronic epigastric pain (03/23/16) Complicated UTI (urinary tract infection) Diabetic foot infection Discharge planning issues DVT femoral (deep venous thrombosis) with thrombophlebitis DVT prophylaxis DVT prophylaxis Edema, unspecified 06/28/16 B/L Elevated troponin Elevation of level of transaminase and lactic acid dehydrogenase (LDH) Epistaxis Esophageal varices with hemorrhage Fever Fever, unknown origin 04/14/16 Fluid overload Foot pain GI bleed Gram-positive bacteremia Hepatic encephalopathy (03/10/16) Hyperlipidemia (09/04/12) Incisional hernia (01/15/15) Increased body mass index Mild epistaxis 12/21/15 Nausea Pancytopenia Physical deconditioning Pleural effusion Pneumonia Portal hypertension Sepsis Sepsis Sepsis syndrome Thyroid nodule right; 2008-[facility] [place]; 2.3cm nodule; neg. biopsy Uninodular goiter Tubular adenoma (04/12/13) Surgical History Colonoscopy - IV Sedation (04/12/13) DR. Bhumika CLAYTON Open Carpal Tunnel release RIGHT PROCEDURES OTHER CERVICAL FUS ANT discectomy 2008 [facility] [place]; NEGATIVE THYROID BX S/P carpal tunnel release right S/P cervical spinal fusion anterior; discectomy S/P cervical spinal fusion anterior;discectomy S/P tonsillectomy Status post biopsy of thyroid gland 09/18/08 neg Status post carpal tunnel release Status post cervical spinal arthrodesis Status post tonsillectomy Tonsillectomy Family History Mother Pancreatic cancer Father Diabetes Essential hypertension Stroke Sister Heart disease Brother Bone cancer Liver cancer Maternal Grandfather No problems noted. Paternal Grandfather No problems noted. Maternal Grandmother , OLD AGE at age 89. No problems noted. Paternal Grandmother Breast cancer Sister Diabetes Colon cancer Rectal cancer Sister Diabetes Son No problems noted. Son No problems noted. Daughter No problems noted. Daughter Alcohol abuse Asthma Social History Smoking/Tobacco Use Status: Former Tobacco Use Tobacco: How many years used: 2 Second Hand Exposure: Yes Smoking risk assessment performed?: Yes Alcohol Intake: current Alcohol Intake frequency: holidays/special occasions only Drug use: Never Substance use type: does not use Counseling given: No Household members: spouse and children Housing: house Communication Needs: None Do you need help understanding health information?: Rarely Pets and animals: Yes Pets and animals: dog(s) Sexually active: No Do you think of yourself as: straight/heterosexual Current gender identity: female What is your relationship status?: How often do you talk on the phone with friends or family?: three or more times per week How often do you get together with friends or relatives?: once per week How often do you attend scientology or druze services?: 1-3 times per year Do you belong to any clubs or organized social groups?: no Panel score (0-1 are the most socially isolated patients): 2 What type of physical activity do you participate in: decline to answer Duration: < 15 minutes/day Frequency: 1-2 times per week Lyubov/Holiness: Confucianism Special lyubov needs: No Seatbelt use: always Helmet use: No Drive intox or ride w/intox batch mixing truck driver: No Do you feel safe at home: Yes Do you feel safe in your relationship?: Yes Exam Const General: no acute distress Orientation: alert HENMO Head: normal to inspection Ears: external ears normal General nose exam: external nose normal Mouth: moist mucous membranes Eyes General: appearance normal, both eyes and all related structures Neck Neck: normal visual inspection Resp Effort & Inspection: normal respiratory effort Cardio Rate: regular rate Skin General skin exam: no rashes or lesions noted Neuro General: patient alert and patient oriented x3 Extrem General: normal to inspection Psych Mental Status: mental status grossly normal Course Vital Signs Vital signs: Vital Signs Temperature 36.8 C 05/06/21 14:49 Pulse 84 05/06/21 14:49 Respiratory Rate 20 05/06/21 14:49 Blood Pressure 121/44 L 05/06/21 14:49 Pulse Oximetry 90 L 05/06/21 14:49 Temperature 36.8 C 05/06/21 14:49 Temperature Source Temporal Artery Scan 05/06/21 14:49 Pulse 84 05/06/21 14:49 Respiratory Rate 20 05/06/21 14:49 Respiratory Effort 05/06/21 14:57 Blood Pressure 121/44 L 05/06/21 14:49 Blood Pressure Position Sitting 05/06/21 14:49 Pulse Oximetry 90 L 05/06/21 14:49 Oxygen Delivery Method Room Air 05/06/21 14:49 Oxygen Flow Rate 0 05/06/21 14:49
[2021-05-06 16:11] LABS: Source Nasal/Nares
[2021-05-06 16:43] LABS: Abs Immature Grans 0.02 10^3/uL (0.0-0.06); Absolute Eosinophil Count 0.28 10^3/uL (0.0-0.7); Absolute Lymphocyte Count 1.07 10^3/uL (1.2-3.4); Absolute Monocyte Count 0.64 10^3/uL (0.1-0.8); Absolute Neutrophil Count 3.98 10^3/uL (1.2-6.7); Basophils % 1.6; Eosinophils % 4.6; HCT 28.7 % (36.0-46.0); HGB 9.3 g/dL (11.2-15.7); Immature Grans % 0.3; Lymphocytes % 17.6; MCH 30.3 pg (27.0-33.0); MCHC 32.4 % (32.0-36.0); MCV 93.5 fL (80-95); MPV 9.8 fL (8.0-11.0); Monocytes % 10.5; Neutrophils % 65.4; Nucleated RBC 0 %; Platelet Count 128 10^3/uL (130-400); RBC 3.07 10^6/uL (3.93-5.22); RDW 15.1 % (11.7-14.6); RDW-SD 51.5 fL; WBC 6.09 10^3/uL (4.4-10.8)
[2021-05-06 16:58] LABS: ALT 37 U/L (14-59); AST 45 U/L (15-37); Albumin 2.3 g/dL (3.4-5.0); Alkaline Phosphatase 232 U/L (46-116); BUN 18 mg/dL (7-18); Bilirubin, Total 3.4 mg/dL (0.2-1.0); CREATININE 1.1 mg/dL (0.55-1.02); Calcium 8.5 mg/dL (8.5-10.1); Chloride 98 mmol/L (98-107); Estimated GFR 50.01 (mL/min/1.73m2); Glucose 202 mg/dL (74-106); Magnesium 1.7 mg/dL (1.8-2.4); NT-proBNP 2204 pg/mL (<300); Potassium 3.8 mmol/L (3.5-5.1); Sodium 136 mmol/L (136-145); Total Protein 6.1 g/dL (6.4-8.2)
--- NOTE | 2021-05-06 17:00 | DI.CT_ITS ---
Exam(s) CT CHEST PE CTA EXAM: CT CHEST PE CTA CLINICAL HISTORY: shortness of breath, hypoxia. TECHNIQUE: Imaging Protocol: Axial CT angiography was performed with multi-slice acquisition and mu lti-planar and/or 3D reconstructions. CONTRAST MATERIAL: Intravenous: Omnipaque 350 Contrast volume:100 mL COMPARISON: CT CT CHEST W from 04/11/[address] CHEST W from 04/11/[address] CHEST PE CTA from 08/11/[address] CHEST PE CTA from 08/11/[address] ABDOMEN PELVIS WO/W from 03/17/2021 FINDINGS: Tracheobronchial tree: Patent where visualized. Pulmonary parenchyma: Since the CT scan of the chest from 03/17/2021, there have developed moderate si ze bilateral pleural effusions and bilateral subjacent infiltrates which may represent atelectasis or pneumonia. No architectural distortion. There does appear to be mild interstitial pulmonary edema. Pulmonary Arteries: No evidence of filling defect to suggest pulmonary emboli. Mediastinum and Aleyda: No dominant adenopathy or fluid collection. Visualized thyroid gland: Unremarkable. Pleura: Please see above. Heart: Mild cardiomegaly. Mild coronary artery calcification. No pericardial effusion. Aorta: Thoracic aorta non-dilated. [id number] atherosclerosis. No evidence of dissection. Upper abdomen: There is a TIPS. The liver is small with a nodular contour consistent with hepatic c irrhosis. There is an enhancing lesions seen in the right lobe of the liver which now measures 3.8 c m. This compares to 2.[address] scan of the chest from 08/11/2020. There is splenomegaly. Emb olization of varices is noted. Soft tissues: Unremarkable. Bones: Within normal limits for the patient's age. Status post anterior cervical disc fusion in the lower cervical spine.The hypodensity in the T2 vertebral body is unchanged compared to the CT scan fr om 04/11/2019. IMPRESSION: 1. No evidence of pulmonary embolism, thoracic aortic dissection or aneurysm. 2. Interval development of moderate bilateral pleural effusions with subjacent infiltrates. Cardiome merly and interstitial edema suggest congestive heart failure. 3. Findings of hepatic cirrhosis. 4. Interval increase in size of enhancing lesion in the right lobe of the liver. Carcinoma cannot be excluded. RADIATION DOSE DELIVERED: 812.28mGy.cm Total DLP DATA REPOSITORY: All CT scans at this facility are submitted to the National Radiology Data Registry (NRDR) Dose Index Registry (DIR) with the [employer] (ACR). RADIATION OPTIMIZATION: All CT scans at this facility use at least one of these dose optimization te chniques: automated exposure control; mA and/or kV adjustment per patient size (includes targeted exa ms where dose is matched to clinical indication); or iterative reconstruction.
[2021-05-06 17:08] LABS: COVID-19 PCR Negative (Negative)
[2021-05-06 17:47] LABS: Bilirubin Negative (Negative); Blood Small (Negative); Clarity Clear (Clear); Glucose Negative (Negative); Ketones Negative (Negative); Leukocyte Esterase Trace (Negative); Nitrite Negative (Negative); Specific Gravity 1.015 (1.005-1.025); Urobilinogen 0.2 EU/dL (Up TO 0.2); pH 6.5 (5-8)
[2021-05-06] MEDS: Normal Saline - Diluent 50 ML VIAL IV (17:47)
[2021-05-06] MEDS: Omnipaque 350 MG/ML 100 ML BTL IJ (17:48)
--- NOTE | 2021-05-06 18:15 | DI.VRAD_ITS ---
PROCEDURE INFORMATION: Exam: CTA Chest With Contrast Exam date and time: 05/06/2021 5:01 PM Age: 66 years old Clinical indication: Shortness of breath TECHNIQUE: Imaging protocol: Computed tomographic angiography of the chest with contrast. 3D rendering (Not supervised by radiologist): MIP and/or 3D reconstructed images were created by the technologist. COMPARISON: CT CHEST PE CTA 08/11/2020 10:02 AM FINDINGS: Pulmonary arteries: Contrast fills the pulmonary artery and its branch vessels satisfactorily. No intraluminal filling defect to suggest pulmonary embolism. Aorta: Unremarkable. No aortic aneurysm. No aortic dissection. Lungs: Interlobular septal thickening representing interstitial pulmonary edema. Single posterolateral juxtapleural focus of pulmonary airspace opacity in the lateral left upper lobe, nonspecific but likely related to pulmonary edema. No focal consolidations or wedge infarcts. Pleural spaces: Small to moderate bilateral pleural effusions with adjacent subsegmental atelectasis. Heart: Cardiomegaly. Lymph nodes: Unremarkable. No enlarged lymph nodes. Liver: Cirrhotic liver with TIPS shunt. An arterially enhancing mass at the hepatic dome has increased from 2.7 cm to 3.8 cm on series 5, image 45. Spleen: Embolization coils in the left gastric and splenic arteries. Splenomegaly measuring 15 cm. Bones/joints: Right T2 1.1 cm oval osseous hypodensity which may represent a benign osseous hemangioma. However, metastatic hepatocellular carcinoma cannot be excluded. Attention to this finding is suggested on follow-up restaging CT studies. Soft tissues: Unremarkable. Other findings: Postoperative changes of ACDF. IMPRESSION: 1. No pulmonary embolism 2. Interval increase in size of a right hepatic mass most suggestive of a primary hepatocellular carcinoma in the background of chronic cirrhosis. Adjacent TIPS shunt. Splenomegaly. 3. Small to moderate bilateral layering pleural effusions with adjacent subsegmental atelectasis. Interstitial pulmonary edema and cardiomegaly suggestive of congestive heart failure. 4. A 1.1 cm oval lesion in the right T2 vertebral body. Attention to this finding is suggested on follow-up to exclude osseous metastasis from HCC. The study was personally discussed on the telephone with Chilo Doe on 05/06/2021 6:11 PM EDT. The results were understood and acknowledged. Dictated and Authenticated by: Gemma Raymond MD. Ordering:ANJALI Woo MD
[2021-05-06 18:29] LABS: Bacteria Moderate HPF (Negative); C & S Indicated? Yes; Casts Negative LPF (Negative); Crystals Negative HPF (Negative); Epithelial Cells Few HPF (Negative); Mucus Negative (Negative); Other Cells Negative (Negative); WBC 0-2 HPF (0-5)
[2021-05-06] MEDS: Furosemide 100 MG/10 ML VIAL 80 MG IVP (18:33)
[2021-05-06] MEDS: cefTRIAXone 2 GM/50 ML BAG IVPB (18:59)
--- NOTE | 2021-05-06 19:43 | HPE_ITS ---
Date of service: 05/06/21 Time of Service: 19:43 Assessment and Plan Assessment and plan (1) Liver mass: Status: Acute Assessment and plan: Needs hepatology appt. Will need to arrange before discharge. (2) Pancreatic mass: Status: Acute Assessment and plan: Previously noted cystic lesion. Needs f/u. No clinical evidence of pancreatitis. (3) Elephantiasis (nonfilarial): Status: Acute Assessment and plan: Wraps, elevation and skin care. Appt at [facility] was tomorrow, 05/07/21. She has cancelled it d/t this admission. (4) Iron deficiency anemia: Status: Acute Assessment and plan: Hgb has decreased since last visit. Likely dilutional effect from volume overload. MCV normal. Check iron and B12 levels; last checked in 02/2020. Qualifiers: Iron deficiency anemia type: unspecified iron deficiency Qualified Code(s): D50.9 - Iron deficiency anemia, unspecified (5) Cirrhosis: Status: Chronic Assessment and plan: Cont lactulose, rifaximin and spironolactone. Total bilirubin 3.4, conjugated bili 2.10; not unusually high for her. AST 45, ALT 37. No clinical evidence of encephalopathy. Qualifiers: Hepatic cirrhosis type: other cirrhosis Qualified Code(s): K74.69 - Other cirrhosis of liver (6) Diabetes mellitus: Status: Chronic Assessment and plan: A1c of 5.6 on 04/17/21. Diabetic diet. Qualifiers: Diabetes mellitus complication status: without complication Diabetes mellitus fdc insulin use: without intermodal customer service use Diabetes mellitus type: type 2 Qualified Code(s): E11.9 - Type 2 diabetes mellitus without complications (7) Essential hypertension: Status: Chronic Assessment and plan: SBP 120's-130's. Cont amlodipine. Also on diuretics; lasix and spironolactone. Monitor (8) Aortic stenosis, severe: Status: Acute Assessment and plan: She has an appt in early may with cardiothoracic surgeon. This is likely the etiology of her current heart failure. 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 Lasix 80mg IV given in the ED. She takes 60mg in the AM and 20 mg in the evening. Will give 60mg IV BID starting tomorrow. Echocardiogram on 01/04/21 showed an Est EF of 55%. No segmental wall motion abnormalities. + severe aortic stenosis with a peak gradient of 67, mean of 44mmHg. Again, likely d/t the severe aortic stenosis. Planned CTS consult in early may. If diuresis fails to improve her symptoms would consult CTS. History of Present Illness History of Present Illness Chief Complaint: Shortness of breath Narrative: This is a 66 yo female. She has a PMH of severe aortic stenosis, lymphedema/elephantiasis, cirrhosis with previous esophageal variceal bleed, HFpEF, DAMIAN, DM2 diet controlled, HTN. She presented with a 1 day h/o shortness of air. She denied CP/palpitations, cough/sputum, F/C. No n/v/abd pain. No dysuria. Workup in the ED: CT chest with pulmonary edema and pleural effusions. No pulmonary embolism. Covid test was negative. Troponin 0.2; consistent with a chronic midly elevated troponin. WBC count normal. Hgb 9.3; was 10.2 earlier in the month. No melena or hematochezia endorsed. CT also showed an interval increase in the size of a right hepatic mass that is suggestive of a primary hepatocellular carcinoma. TIPS shunt noted. Also noted was a 1.1 cm oval lesion in the right T2 vertebral body; concerning for a possible osseous metastasis from HCC Her urine was suggestive of a UTI and Rocephin was given in the ED. Also administered was 80mg IV lasix. Review of Systems All systems reviewed & are unremarkable except as noted in HPI and below PFSH Medical History (Updated 05/06/21 @ 19:54 by Sabino Hooper MD) Abdominal pain, chronic, epigastric (03/23/16) Advance directive on file Annual physical exam (02/22/18) Aortic stenosis, severe Bacteremia Bacteremia due to group B Streptococcus Bleeding esophageal varices (03/10/16) Breast mass CAP (community acquired pneumonia) Carpal tunnel syndrome right; s/p release Cellulitis Cellulitis Cervical disc disorder with myelopathy (09/04/12) Chronic epigastric pain (03/23/16) Complicated UTI (urinary tract infection) Diabetic foot infection Discharge planning issues DVT femoral (deep venous thrombosis) with thrombophlebitis DVT prophylaxis DVT prophylaxis Edema, unspecified 06/28/16 B/L Elevated troponin Elevation of level of transaminase and lactic acid dehydrogenase (LDH) Epistaxis Esophageal varices with hemorrhage Fever Fever, unknown origin 04/14/16 Fluid overload Foot pain GI bleed Gram-positive bacteremia Hepatic encephalopathy (03/10/16) Hyperlipidemia (09/04/12) Incisional hernia (01/15/15) Increased body mass index Mild epistaxis 12/21/15 Nausea Pancytopenia Physical deconditioning Pleural effusion Pneumonia Portal hypertension Sepsis Sepsis Sepsis syndrome Thyroid nodule right; 2008-[facility] [place]; 2.3cm nodule; neg. biopsy Uninodular goiter Tubular adenoma (04/12/13) Surgical History Colonoscopy - IV Sedation (04/12/13) DR. Bhumika CLAYTON Open Carpal Tunnel release RIGHT PROCEDURES OTHER CERVICAL FUS ANT discectomy 2008 [facility] [place]; NEGATIVE THYROID BX S/P carpal tunnel release right S/P cervical spinal fusion anterior; discectomy S/P cervical spinal fusion anterior;discectomy S/P tonsillectomy Status post biopsy of thyroid gland 09/18/08 neg Status post carpal tunnel release Status post cervical spinal arthrodesis Status post tonsillectomy Tonsillectomy Family History Mother Pancreatic cancer Father Diabetes Essential hypertension Stroke Sister Heart disease Brother Bone cancer Liver cancer Maternal Grandfather No problems noted. Paternal Grandfather No problems noted. Maternal Grandmother , OLD AGE at age 89. No problems noted. Paternal Grandmother Breast cancer Sister Diabetes Colon cancer Rectal cancer Sister Diabetes Son No problems noted. Son No problems noted. Daughter No problems noted. Daughter Alcohol abuse Asthma Social History Smoking/Tobacco Use Status: Former Tobacco Use Tobacco: How many years used: 2 Second Hand Exposure: Yes Smoking risk assessment performed?: Yes Alcohol Intake: current Alcohol Intake frequency: holidays/special occasions only Drug use: Never Substance use type: does not use Counseling given: No Household members: spouse and children Housing: house Communication Needs: None Do you need help understanding health information?: Rarely Pets and animals: Yes Pets and animals: dog(s) Sexually active: No Do you think of yourself as: straight/heterosexual Current gender identity: female What is your relationship status?: How often do you talk on the phone with friends or family?: three or more times per week How often do you get together with friends or relatives?: once per week How often do you attend yazdanism or restoration services?: 1-3 times per year Do you belong to any clubs or organized social groups?: no Panel score (0-1 are the most socially isolated patients): 2 What type of physical activity do you participate in: decline to answer Duration: < 15 minutes/day Frequency: 1-2 times per week Lyubov/Alevism: Pentecostalism Special lyubov needs: No Seatbelt use: always Helmet use: No Drive intox or ride w/intox semi driver: No Do you feel safe at home: Yes Do you feel safe in your relationship?: Yes Meds Allergies and Home Medications Allergies Allergy/AdvReac Type Severity Reaction Status Date / Time gabapentin Allergy Intermediate Local Unverified 05/06/21 14:53 reaction on skin lisinopril AdvReac Itching Verified 05/06/21 14:53 Home Medications Medication Instructions Recorded Confirmed Type zinc sulfate 220 mg PO DAILY #90 tab-cap 01/10/17 05/06/21 History pen needle, diabetic [BD #180 12/18/17 04/27/21 Rx Ultra-Fine Orig Pen Needle] ferrous sulfate 325 mg (65 mg 325 mg PO DAILY tab 06/11/18 05/06/21 History iron) tablet blood sugar diagnostic #300 strip 09/13/18 04/27/21 Rx amlodipine 5 mg tablet 5 mg PO DAILY #90 tab 04/21/20 05/06/21 Rx ammonium lactate 12 % lotion 1 applic TOPICAL BID 06/08/20 05/06/21 History triamcinolone acetonide 0.1 % 1 applic TP QID #80 gm 07/12/20 05/06/21 Rx topical cream ondansetron HCl 4 mg tablet 4 mg PO DAILY PRN #90 tab-cap 07/29/20 05/06/21 Rx fluocinonide 1 applic TOPICAL DAILY 08/07/20 05/06/21 History mupirocin 0 applic TOPICAL DAILY 08/07/20 05/06/21 History ascorbic acid (vitamin C) [Vitamin 500 mg PO DAILY #30 tab 08/10/20 05/06/21 Rx C] rifaximin 550 mg tablet 550 mg PO BID #180 tab 10/05/20 05/06/21 Rx sucralfate 1 gram tablet 1 g PO AC & HS #360 tab 10/05/20 05/06/21 Rx lactulose 20 gram/30 mL oral 10 g PO TID #3000 ml 11/18/20 05/06/21 Rx solution pregabalin 100 mg capsule 100 mg PO TID #270 cap 11/24/20 05/06/21 Rx furosemide 20 mg tablet See Rx Instructions PO DAILY 01/26/21 05/06/21 History spironolactone 50 mg tablet 50 mg PO DAILY #90 tab 04/12/21 05/06/21 Rx cephalexin 500 mg PO TID #15 cap 04/22/21 04/27/21 Rx oxycodone 5 mg tablet 10 mg PO QHS PRN #30 tab MDD 2 05/03/21 05/06/21 Rx pantoprazole 40 mg tablet,delayed 40 mg PO DAILY #180 tab 05/03/21 05/06/21 Rx release Exam Const General: cooperative and no acute distress Nutritional Appearance: obese Orientation: alert and oriented x3 HENMT Head: normocephalic and atraumatic Eyes General: appearance normal, both eyes and all related structures Sclera: sclerae normal Pupils: PERRL Resp Effort & Inspection: normal respiratory effort Auscultation: clear to auscultation bilaterally and diminished lung sounds bilaterally in the lower lung giraldo Cardio Rate: regular rate Rhythm: regular rhythm Heart Sounds: S1 normal, S2 normal and murmur GI Palpation: soft and nontender Auscultation: normal bowel sounds Skin General skin exam: other (Thickened dermis of BLE's below the knees.) Extrem General: no calf tenderness and other Psych Appearance: grossly normal Mental Status: mental status grossly normal Speech and Movement: speech and movement normal Affect: sad Results Labs Result diagrams: 05/06/21 16:40 05/06/21 16:30 Labs: Laboratory Results - last 24 hr 05/06/21 05/06/21 05/06/21 15:30 15:45 16:30 WBC RBC Hgb Hct MCV MCH MCHC RDW Plt Count MPV Immature Gran % Neutrophils % Lymphocytes % Monocytes % Eosinophils % Basophils % Nucleated RBC % Absolute Neutrophils Absolute Lymphocytes Absolute Monocytes Absolute Eosinophils Absolute Basophils Sodium 136 Potassium 3.8 Chloride 98 Carbon Dioxide 34.0 H Anion Gap 4.0 BUN 18 Creatinine 1.1 H Estimated GFR/1.73 m2 50.01 Glucose 202 H Calcium 8.5 Magnesium 1.7 L Total Bilirubin 3.4 H AST 45 H ALT 37 Alkaline Phosphatase 232 H Troponin I 0.20 H* NT-Pro-B Natriuret Pep 2204 H Total Protein 6.1 L Albumin 2.3 L Urine Color Yellow Urine Clarity Clear Urine pH 6.5 Ur Specific [place] 1.015 Urine Protein Negative Urine Ketones Negative Urine Blood Small H Urine Nitrite Negative Urine Bilirubin Negative Urine Urobilinogen 0.2 Ur Leukocyte Esterase Trace H Urine RBC 3-5 H Urine WBC 0-2 Ur Epithelial Cells Few Urine Crystals Negative Urine Bacteria Moderate Urine Casts Negative Urine Mucus Negative Urine Other Negative Ur Culture Indicated? Yes Urine Glucose Negative COVID-19 Source Nasal/Nares SARS-CoV-2 (PCR) Negative 05/06/21 16:40 WBC 6.09 RBC 3.07 L Hgb 9.3 L Hct 28.7 L MCV 93.5 MCH 30.3 MCHC 32.4 RDW 15.1 H Plt Count 128 L MPV 9.8 Immature Gran % 0.3 Neutrophils % 65.4 Lymphocytes % 17.6 Monocytes % 10.5 Eosinophils % 4.6 Basophils % 1.6 Nucleated RBC % 0 Absolute Neutrophils 3.98 Absolute Lymphocytes 1.07 L Absolute Monocytes 0.64 Absolute Eosinophils 0.28 Absolute Basophils 0.10 Sodium Potassium Chloride Carbon Dioxide Anion Gap BUN Creatinine Estimated GFR/1.73 m2 Glucose Calcium Magnesium Total Bilirubin AST ALT Alkaline Phosphatase Troponin I NT-Pro-B Natriuret Pep Total Protein Albumin Urine Color Urine Clarity Urine pH Ur Specific [place] Urine Protein Urine Ketones Urine Blood Urine Nitrite Urine Bilirubin Urine Urobilinogen Ur Leukocyte Esterase Urine RBC Urine WBC Ur Epithelial Cells Urine Crystals Urine Bacteria Urine Casts Urine Mucus Urine Other Ur Culture Indicated? Urine Glucose COVID-19 Source SARS-CoV-2 (PCR) Last Vital Signs Temp 36.8 C 05/06/21 14:49 Pulse 84 05/06/21 14:49 Resp 20 05/06/21 14:49 BP 121/44 L 05/06/21 14:49 Pulse Ox 90 L 05/06/21 14:49
[2021-05-06 19:50] LABS: Troponin I 0.24 ng/mL (<0.06)
[2021-05-06 19:56] VITALS: BP 121/44; PULSE 84; RESP 20; TEMP 36.8; O2SAT 90
[2021-05-06 20:19] VITALS: BP 122/61; PULSE 90; TEMP 36.8; O2SAT 95
[2021-05-06 20:48] LABS: Iron 56 ug/dL (50-170); Total Iron Binding Capacity 324 ug/dL (250-450); Transferrin Sat 17 % (15-50)
[2021-05-06 21:16] LABS: Vitamin B12 1929 pg/mL (193-986)
[2021-05-06] MEDS: Heparin 5,000 UNITS/ML VIAL 5000 UNITS SC (21:17)
[2021-05-06] MEDS: Lactulose 20 GM/30 ML CUP 10 GM PO (21:17)
[2021-05-06] MEDS: Sucralfate 1 GM TAB PO (21:18)
[2021-05-06] MEDS: Pregabalin 50 MG CAP (21:18)
[2021-05-06] MEDS: Acetaminophen 325 MG TAB 650 MG PO (21:19)
[2021-05-06] MEDS: Rifaximin 550 MG TAB PO (21:19)
[2021-05-06 21:40] VITALS: PULSE 83
[2021-05-06 21:52] VITALS: BP 119/52; PULSE 80; RESP 18; TEMP 35.7; O2SAT 95
[2021-05-06 23:14] LABS: Troponin I 0.29 ng/mL (<0.06)
[2021-05-07] VITALS (8 sets, daily range): BP systolic 98–122; BP diastolic 43–68; PULSE 80–99; RESP 17–20; TEMP 36.4–36.7; O2SAT 92–98
[2021-05-07] MEDS: Heparin 5,000 UNITS/ML VIAL 5000 UNITS SC ×3 (05:32→22:19)
[2021-05-07 07:27] LABS: Abs Immature Grans 0.02 10^3/uL (0.0-0.06); Absolute Basophil Count 0.09 10^3/uL (0.0-0.2); Absolute Eosinophil Count 0.28 10^3/uL (0.0-0.7); Absolute Monocyte Count 0.65 10^3/uL (0.1-0.8); Absolute Neutrophil Count 3.38 10^3/uL (1.2-6.7); Basophils % 1.7; Eosinophils % 5.2; HCT 26.3 % (36.0-46.0); HGB 8.5 g/dL (11.2-15.7); Immature Grans % 0.4; Lymphocytes % 18.5; MCH 29.9 pg (27.0-33.0); MCHC 32.3 % (32.0-36.0); MCV 92.6 fL (80-95); MPV 9.8 fL (8.0-11.0); Neutrophils % 62.2; Nucleated RBC 0 %; Platelet Count 121 10^3/uL (130-400); RBC 2.84 10^6/uL (3.93-5.22); RDW 15.2 % (11.7-14.6); RDW-SD 51.5 fL; WBC 5.42 10^3/uL (4.4-10.8)
[2021-05-07 08:00] LABS: ALT 30 U/L (14-59); AST 36 U/L (15-37); Albumin 2.1 g/dL (3.4-5.0); Alkaline Phosphatase 196 U/L (46-116); Anion Gap 1.3 mmol/L (3-11); BUN 21 mg/dL (7-18); Bilirubin, Total 2.5 mg/dL (0.2-1.0); CO2 35.7 mmol/L (21.0-32.0); CREATININE 1.1 mg/dL (0.55-1.02); Calcium 8.1 mg/dL (8.5-10.1); Chloride 99 mmol/L (98-107); Estimated GFR 50.01 (mL/min/1.73m2); Glucose 184 mg/dL (74-106); Magnesium 1.5 mg/dL (1.8-2.4); Sodium 136 mmol/L (136-145); Total Protein 5.3 g/dL (6.4-8.2)
[2021-05-07 08:02] LABS: Troponin I 0.25 ng/mL (<0.06)
[2021-05-07] MEDS: Lachydrin 12% LOTION 225 GM BTL TP ×2 (09:17→19:38)
[2021-05-07] MEDS: Furosemide 40 MG/4 ML VIAL 60 MG IVP (09:19)
[2021-05-07] MEDS: Lactulose 20 GM/30 ML CUP 10 GM PO ×3 (09:20→19:38)
[2021-05-07] MEDS: Normal Saline Flush 10 ML SYR IVP ×3 (09:20→22:27)
[2021-05-07] MEDS: Zinc Sulfate 220 MG TAB PO (09:21)
[2021-05-07] MEDS: Sucralfate 1 GM TAB PO ×4 (09:21→21:15)
[2021-05-07] MEDS: Spironolactone 50 MG TAB PO (09:21)
[2021-05-07] MEDS: Pantoprazole 40 MG TABCR PO (09:22)
[2021-05-07] MEDS: Pregabalin 100 MG CAP PO ×3 (09:22→19:39)
[2021-05-07] MEDS: amLODIPine 5 MG TAB PO (09:22)
[2021-05-07] MEDS: Rifaximin 550 MG TAB PO ×2 (09:22→19:40)
--- NOTE | 2021-05-07 10:22 | W.PM.PROGNOT ---
Date of Service Date of service: 05/07/21 Time of Service: 10:23 Assessment and Plan Assessment and plan (1) Congestive heart failure due to valvular disease: Status: Acute Assessment and plan: NTproNBP elevated at 2204; this is a higher value than she has presented with in the past. Lasix 80mg IV given in the ED. She takes 60mg in the AM and 20 mg in the evening. Will give 80mg IV BID and give 1 dose of metolazone today and albumin. here weight was actually up overnight. will increase diuretics but monitor closely in setting of severe Echocardiogram on 01/04/21 showed an Est EF of 55%. No segmental wall motion abnormalities. + severe aortic stenosis with a peak gradient of 67, mean of 44mmHg. Again, likely d/t the severe aortic stenosis. Planned CTS consult in early may. If diuresis fails to improve her symptoms would consult CTS. (2) UTI (urinary tract infection): Status: Acute Assessment and plan: cultures pending day 2 ceftriaxone while awaiting results (3) Liver mass: Status: Acute Assessment and plan: Needs hepatology appt. Will need to arrange before discharge. (4) Pancreatic mass: Status: Acute Assessment and plan: Previously noted cystic lesion. Needs f/u. No clinical evidence of pancreatitis. (5) Elephantiasis (nonfilarial): Status: Acute Assessment and plan: Wraps, elevation and skin care. Appt at [facility] was tomorrow, 05/07/21. She has cancelled it d/t this admission. (6) Iron deficiency anemia: Status: Acute Assessment and plan: Hgb has decreased since last visit. Likely dilutional effect from volume overload. MCV normal. Check iron and B12 levels; last checked in 02/2020. Qualifiers: Iron deficiency anemia type: unspecified iron deficiency Qualified Code(s): D50.9 - Iron deficiency anemia, unspecified (7) Cirrhosis: Status: Chronic Assessment and plan: Cont lactulose, rifaximin and spironolactone. Total bilirubin 3.4, conjugated bili 2.10; not unusually high for her. AST 45, ALT 37. No clinical evidence of encephalopathy. Qualifiers: Hepatic cirrhosis type: other cirrhosis Qualified Code(s): K74.69 - Other cirrhosis of liver (8) Diabetes mellitus: Status: Chronic Assessment and plan: A1c of 5.6 on 04/17/21. Diabetic diet. Qualifiers: Diabetes mellitus complication status: without complication Diabetes mellitus custodial insulin use: without intermediate card tender use Diabetes mellitus type: type 2 Qualified Code(s): E11.9 - Type 2 diabetes mellitus without complications (9) Essential hypertension: Status: Chronic Assessment and plan: SBP 120's-130's. Cont amlodipine. Also on diuretics; lasix and spironolactone. Monitor (10) Aortic stenosis, severe: Status: Acute Assessment and plan: She has an appt in early may with cardiothoracic surgeon. This is likely the etiology of her current heart failure. (11) DVT prophylaxis: Status: Acute Assessment and plan: heparin (12) Discharge planning issues: Status: Acute Assessment and plan: will discharge home when stable discussed with DR Rich Subjective Subjective Patient reports: tolerating liquids well, tolerating a regular diet, shortness of breath and afebrile Exam Const General: cooperative and no acute distress Nutritional Appearance: obese Orientation: alert and oriented x3 HENMT Head: normocephalic and atraumatic Eyes General: appearance normal, both eyes and all related structures Sclera: sclerae normal Pupils: PERRL Resp Effort & Inspection: normal respiratory effort Auscultation: clear to auscultation bilaterally and diminished lung sounds bilaterally in the lower lung giraldo Cardio Rate: regular rate Rhythm: regular rhythm Heart Sounds: S1 normal, S2 normal and murmur GI Palpation: soft and nontender Auscultation: normal bowel sounds Skin General skin exam: other (Thickened dermis of BLE's below the knees.) Extrem General: no calf tenderness and other Psych Appearance: grossly normal Mental Status: mental status grossly normal Speech and Movement: speech and movement normal Objective Last Vital Signs Temp 36.7 C 05/07/21 01:37 Pulse 88 05/07/21 07:00 Resp 18 05/07/21 01:37 BP 98/53 L 05/07/21 01:37 Pulse Ox 92 05/07/21 01:37 Laboratory Results - last 24 hr 05/06/21 05/06/21 05/06/21 15:30 15:45 16:30 WBC RBC Hgb Hct MCV MCH MCHC RDW Plt Count MPV Immature Gran % Neutrophils % Lymphocytes % Monocytes % Eosinophils % Basophils % Nucleated RBC % Absolute Neutrophils Absolute Lymphocytes Absolute Monocytes Absolute Eosinophils Absolute Basophils Sodium 136 Potassium 3.8 Chloride 98 Carbon Dioxide 34.0 H Anion Gap 4.0 BUN 18 Creatinine 1.1 H Estimated GFR/1.73 m2 50.01 Glucose 202 H Calcium 8.5 Magnesium 1.7 L Iron TIBC Transferrin % Sat Total Bilirubin 3.4 H AST 45 H ALT 37 Alkaline Phosphatase 232 H Troponin I 0.20 H* NT-Pro-B Natriuret Pep 2204 H Total Protein 6.1 L Albumin 2.3 L Vitamin B12 Urine Color Yellow Urine Clarity Clear Urine pH 6.5 Ur Specific [place] 1.015 Urine Protein Negative Urine Ketones Negative Urine Blood Small H Urine Nitrite Negative Urine Bilirubin Negative Urine Urobilinogen 0.2 Ur Leukocyte Esterase Trace H Urine RBC 3-5 H Urine WBC 0-2 Ur Epithelial Cells Few Urine Crystals Negative Urine Bacteria Moderate Urine Casts Negative Urine Mucus Negative Urine Other Negative Ur Culture Indicated? Yes Urine Glucose Negative COVID-19 Source Nasal/Nares SARS-CoV-2 (PCR) Negative 05/06/21 05/06/21 05/06/21 16:35 16:35 16:40 WBC 6.09 RBC 3.07 L Hgb 9.3 L Hct 28.7 L MCV 93.5 MCH 30.3 MCHC 32.4 RDW 15.1 H Plt Count 128 L MPV 9.8 Immature Gran % 0.3 Neutrophils % 65.4 Lymphocytes % 17.6 Monocytes % 10.5 Eosinophils % 4.6 Basophils % 1.6 Nucleated RBC % 0 Absolute Neutrophils 3.98 Absolute Lymphocytes 1.07 L Absolute Monocytes 0.64 Absolute Eosinophils 0.28 Absolute Basophils 0.10 Sodium Potassium Chloride Carbon Dioxide Anion Gap BUN Creatinine Estimated GFR/1.73 m2 Glucose Calcium Magnesium Iron 56 TIBC 324 Transferrin % Sat 17 Total Bilirubin AST ALT Alkaline Phosphatase Troponin I NT-Pro-B Natriuret Pep Total Protein Albumin Vitamin B12 1929 H Urine Color Urine Clarity Urine pH Ur Specific [place] Urine Protein Urine Ketones Urine Blood Urine Nitrite Urine Bilirubin Urine Urobilinogen Ur Leukocyte Esterase Urine RBC Urine WBC Ur Epithelial Cells Urine Crystals Urine Bacteria Urine Casts Urine Mucus Urine Other Ur Culture Indicated? Urine Glucose COVID-19 Source SARS-CoV-2 (PCR) 05/06/21 05/06/21 05/07/21 19:28 22:30 06:50 WBC RBC Hgb Hct MCV MCH MCHC RDW Plt Count MPV Immature Gran % Neutrophils % Lymphocytes % Monocytes % Eosinophils % Basophils % Nucleated RBC % Absolute Neutrophils Absolute Lymphocytes Absolute Monocytes Absolute Eosinophils Absolute Basophils Sodium 136 Potassium 4.0 Chloride 99 Carbon Dioxide 35.7 H Anion Gap 1.3 L BUN 21 H Creatinine 1.1 H Estimated GFR/1.73 m2 50.01 Glucose 184 H Calcium 8.1 L Magnesium 1.5 L Iron TIBC Transferrin % Sat Total Bilirubin 2.5 H AST 36 ALT 30 Alkaline Phosphatase 196 H Troponin I 0.24 H* 0.29 H* 0.25 H* NT-Pro-B Natriuret Pep Total Protein 5.3 L Albumin 2.1 L Vitamin B12 Urine Color Urine Clarity Urine pH Ur Specific [place] Urine Protein Urine Ketones Urine Blood Urine Nitrite Urine Bilirubin Urine Urobilinogen Ur Leukocyte Esterase Urine RBC Urine WBC Ur Epithelial Cells Urine Crystals Urine Bacteria Urine Casts Urine Mucus Urine Other Ur Culture Indicated? Urine Glucose COVID-19 Source SARS-CoV-2 (PCR) 05/07/21 06:50 WBC 5.42 RBC 2.84 L Hgb 8.5 L Hct 26.3 L MCV 92.6 MCH 29.9 MCHC 32.3 RDW 15.2 H Plt Count 121 L MPV 9.8 Immature Gran % 0.4 Neutrophils % 62.2 Lymphocytes % 18.5 Monocytes % 12.0 Eosinophils % 5.2 Basophils % 1.7 Nucleated RBC % 0 Absolute Neutrophils 3.38 Absolute Lymphocytes 1.00 L Absolute Monocytes 0.65 Absolute Eosinophils 0.28 Absolute Basophils 0.09 Sodium Potassium Chloride Carbon Dioxide Anion Gap BUN Creatinine Estimated GFR/1.73 m2 Glucose Calcium Magnesium Iron TIBC Transferrin % Sat Total Bilirubin AST ALT Alkaline Phosphatase Troponin I NT-Pro-B Natriuret Pep Total Protein Albumin Vitamin B12 Urine Color Urine Clarity Urine pH Ur Specific [place] Urine Protein Urine Ketones Urine Blood Urine Nitrite Urine Bilirubin Urine Urobilinogen Ur Leukocyte Esterase Urine RBC Urine WBC Ur Epithelial Cells Urine Crystals Urine Bacteria Urine Casts Urine Mucus Urine Other Ur Culture Indicated? Urine Glucose COVID-19 Source SARS-CoV-2 (PCR)
[2021-05-07] MEDS: metOLazone 2.5 MG TAB 5 MG PO (11:57)
[2021-05-07] MEDS: ALBUMIN HUMAN 25 GM/100 ML BTL IV (11:57)
[2021-05-07] MEDS: Furosemide 100 MG/10 ML VIAL 80 MG IVP (12:51)
--- NOTE | 2021-05-07 14:36 | CHAPLAIN ---
Mayra was up in the chair when I visited. She talked about how scary it had been to be short of breath before her daughter brought her to the ER. She's feeling better now she said, but still tired. She had an appointment scheduled for today with a Dietitian Consultant in [place], and said she hates to be missing it. Mayra lives in [place] with her . Her daughter brought her here, but she wasn't sure if either would be visiting her.
[2021-05-07] MEDS: Furosemide 40 MG/4 ML VIAL 80 MG IVP (16:12)
--- NOTE | 2021-05-07 16:46 | PDOC.CMIN ---
- If Service Date Differs Date of service: 05/07/21 Time of Service: 16:46 Care Management Initial Assess REASON FOR HOSPITALIZATION:: acute CHF PAST MEDICAL HISTORY/PAST SURGICAL HISTORY:: Medical History. Abdominal pain, chronic, epigastric (03/23/16). Advance directive on file. Annual physical exam (02/22/18). Aortic stenosis, severe. Bacteremia. Bacteremia due to group B Streptococcus. Bleeding esophageal varices (03/10/16). Breast mass. CAP (community acquired pneumonia). Carpal tunnel syndrome. right; s/p release. Cellulitis. Cellulitis. Cervical disc disorder with myelopathy (09/04/12). Chronic epigastric pain (03/23/16). Complicated UTI (urinary tract infection). Diabetic foot infection. Discharge planning issues. DVT femoral (deep venous thrombosis) with thrombophlebitis. DVT prophylaxis. DVT prophylaxis. Edema, unspecified. 06/28/16 B/L. Elevated troponin. Elevation of level of transaminase and lactic acid dehydrogenase (LDH). Epistaxis. Esophageal varices with hemorrhage. Fever. Fever, unknown origin. 04/14/16. Fluid overload. Foot pain. GI bleed. Gram-positive bacteremia. Hepatic encephalopathy (03/10/16). Hyperlipidemia (09/04/12). Incisional hernia (01/15/15). Increased body mass index. Mild epistaxis. 12/21/15. Nausea. Pancytopenia. Physical deconditioning. Pleural effusion. Pneumonia. Portal hypertension. Sepsis. Sepsis. Sepsis syndrome. Thyroid nodule. right; 2008-[facility] [place]; 2.3cm nodule; neg. biopsy. Uninodular goiter. Tubular adenoma (04/12/13). Surgical History. Colonoscopy - IV Sedation (04/12/13). DR. Bhumika CLAYTON. Open Carpal Tunnel release. RIGHT. PROCEDURES. OTHER CERVICAL FUS ANT. discectomy. 2008 [facility] [place]; NEGATIVE THYROID BX. S/P carpal tunnel release. right. S/P cervical spinal fusion. anterior; discectomy. S/P cervical spinal fusion. anterior;discectomy. S/P tonsillectomy. Status post biopsy of thyroid gland. 09/18/08 neg. Status post carpal tunnel release. Status post cervical spinal arthrodesis. Status post tonsillectomy. Tonsillectomy PREVIOUS FUNCTIONAL STATUS/SOCIAL/FAMILY SUPPORTS:: Mayra resides in a single family home in [place] with her and daughter, Divya. She has three additional adult children all who are supportive. Mayra is not currently employed, she was previously independent with ADLs and activities, though over the last few monthes she has needed some assistance. CURRENT FUNCTIONAL STATUS:: Mayra was sitting up in her chair when CM met with her. She reported that she is feeling good today. Per report, she is on lasiks currently. Her cultures are pending, and she is on abx while awaiting results. Mayra reported that things are going well at home and she doesn't require any additional services, as her daughter takes care of her at home when needed. CM will continue to follow. ADVANCE DIRECTIVES:: [facility] on file. Has patient been provided with info about the portal/API?: Yes Did the patient sign up for the portal?: No CODE STATUS:: DNR/DNI INSURANCE COVERAGE / FINANCIAL ISSUES:: [facility]/ [employer] CURRENT HOME/COMMUNITY SERVICES/EQUIPMENT:: Mayra stated that her daughter is her paid caregiver, and she helps her around the house, cooking and cleaning, and with some personal care. PRIMARY CARE PHYSICIAN:: Malu Baron POTENTIAL DISCHARGE NEEDS:: Evaluations for further needs, follow up appointments. PATIENT/FAMILY EDUCATION NEEDS:: Review discharge instructions regarding activity levels and wound care, discussion of self care needs including ask me three. ANTICIPATED BARRIERS TO DISCHARGE:: none identified. TRANSPORTATION:: Via private vehicle by family. PLAN:: Anticipate Mayra will return home when medically cleared. She will be driven home via private vehicle by family. She will follow up with her PCP and discharge plan of care. CM will continue to follow.
[2021-05-07] MEDS: cefTRIAXone 1 GM/50 ML BAG IVPB (17:22)
[2021-05-07] MEDS: MAGNESIUM SULFATE 2 GM/50 ML BAG IVPB (18:03)
[2021-05-07] MEDS: Acetaminophen 325 MG TAB 650 MG PO (19:38)
[2021-05-07] MEDS: oxyCODONE 5 MG TAB 10 MG PO (21:15)
[2021-05-08 03:24] VITALS: BP 110/45; PULSE 86; RESP 16; TEMP 35.9; O2SAT 94
[2021-05-08] MEDS: Heparin 5,000 UNITS/ML VIAL 5000 UNITS SC ×2 (06:41→14:49)
[2021-05-08] MEDS: Pantoprazole 40 MG TABCR PO (06:41)
[2021-05-08] MEDS: Sucralfate 1 GM TAB PO ×4 (06:41→21:54)
[2021-05-08 07:00] VITALS: PULSE 90
[2021-05-08 07:42] VITALS: BP 122/62; PULSE 92; RESP 18; TEMP 36.4; O2SAT 95
[2021-05-08 07:43] LABS: Abs Immature Grans 0.02 10^3/uL (0.0-0.06); Absolute Basophil Count 0.07 10^3/uL (0.0-0.2); Absolute Eosinophil Count 0.22 10^3/uL (0.0-0.7); Absolute Lymphocyte Count 0.79 10^3/uL (1.2-3.4); Absolute Monocyte Count 0.54 10^3/uL (0.1-0.8); Absolute Neutrophil Count 3.93 10^3/uL (1.2-6.7); Basophils % 1.3; Eosinophils % 3.9; HCT 25.6 % (36.0-46.0); HGB 8.4 g/dL (11.2-15.7); Immature Grans % 0.4; Lymphocytes % 14.2; MCH 29.7 pg (27.0-33.0); MCHC 32.8 % (32.0-36.0); MCV 90.5 fL (80-95); MPV 9.9 fL (8.0-11.0); Monocytes % 9.7; Neutrophils % 70.5; Nucleated RBC 0 %; Platelet Count 109 10^3/uL (130-400); RBC 2.83 10^6/uL (3.93-5.22); RDW 14.6 % (11.7-14.6); RDW-SD 48.6 fL; WBC 5.57 10^3/uL (4.4-10.8)
[2021-05-08 08:09] LABS: Diff Comment RBC Morph Reviewed
[2021-05-08 08:10] LABS: Polychromasia Present
[2021-05-08 08:12] LABS: BUN 26 mg/dL (7-18); CREATININE 1.1 mg/dL (0.55-1.02); Calcium 8.7 mg/dL (8.5-10.1); Chloride 93 mmol/L (98-107); Estimated GFR 50.01 (mL/min/1.73m2); Glucose 211 mg/dL (74-106); Potassium 4.3 mmol/L (3.5-5.1); Sodium 131 mmol/L (136-145)
[2021-05-08] MEDS: Lactulose 20 GM/30 ML CUP 10 GM PO ×3 (08:39→19:46)
[2021-05-08] MEDS: Normal Saline Flush 10 ML SYR IVP ×4 (08:40→21:54)
[2021-05-08] MEDS: Pregabalin 100 MG CAP PO ×3 (08:40→19:47)
[2021-05-08] MEDS: Furosemide 40 MG/4 ML VIAL 80 MG IVP (08:40)
[2021-05-08] MEDS: Zinc Sulfate 220 MG TAB PO (08:40)
[2021-05-08] MEDS: Rifaximin 550 MG TAB PO ×2 (08:41→19:47)
[2021-05-08] MEDS: amLODIPine 5 MG TAB PO (08:41)
[2021-05-08] MEDS: Lachydrin 12% LOTION 225 GM BTL TP ×2 (08:41→19:47)
[2021-05-08] MEDS: Spironolactone 50 MG TAB PO (08:41)
[2021-05-08] MEDS: ALBUMIN HUMAN 25 GM/100 ML BTL IV (11:41)
[2021-05-08] MEDS: Furosemide 100 MG/10 ML VIAL 80 MG IVP (11:41)
[2021-05-08] MEDS: metOLazone 2.5 MG TAB PO (11:42)
--- NOTE | 2021-05-08 12:54 | PGE_ITS ---
Date of Service Date of service: 05/08/21 Time of Service: 12:54 Assessment and Plan Assessment and plan (1) Congestive heart failure due to valvular disease: Status: Acute Assessment and plan: responded to metolazone and albumin yesterday and is down 1.4 kg today, breathing slightly improved. will repeat today and continue to monitor closely in setting of severe Echocardiogram on 01/04/21 showed an Est EF of 55%. No segmental wall motion abnormalities. + severe aortic stenosis with a peak gradient of 67, mean of 44mmHg. Again, likely d/t the severe aortic stenosis. Planned CTS consult in early may. (2) UTI (urinary tract infection): Status: Acute Assessment and plan: cultures pending day 3 ceftriaxone while awaiting results (3) Liver mass: Status: Acute Assessment and plan: Needs hepatology appt. Will need to arrange before discharge. (4) Pancreatic mass: Status: Acute Assessment and plan: Previously noted cystic lesion. Needs f/u. No clinical evidence of pancreatitis. (5) Elephantiasis (nonfilarial): Status: Acute Assessment and plan: Wraps, elevation and skin care. Appt at [facility] for 05/07/21. She has cancelled it d/t this admission. wound care consult placed (6) Iron deficiency anemia: Status: Acute Assessment and plan: Hgb has decreased since last visit. Likely dilutional effect from volume overload. MCV normal. Check iron and B12 levels; last checked in 02/2020. Qualifiers: Iron deficiency anemia type: unspecified iron deficiency Qualified Code(s): D50.9 - Iron deficiency anemia, unspecified (7) Cirrhosis: Status: Chronic Assessment and plan: Cont lactulose, rifaximin and spironolactone. Total bilirubin 3.4, conjugated bili 2.10; not unusually high for her. AST 45, ALT 37. No clinical evidence of encephalopathy. Qualifiers: Hepatic cirrhosis type: other cirrhosis Qualified Code(s): K74.69 - Other cirrhosis of liver (8) Diabetes mellitus: Status: Chronic Assessment and plan: A1c of 5.6 on 04/17/21. Diabetic diet. Qualifiers: Diabetes mellitus complication status: without complication Diabetes mellitus half-way insulin use: without investigation division captain use Diabetes mellitus type: type 2 Qualified Code(s): E11.9 - Type 2 diabetes mellitus without complications (9) Essential hypertension: Status: Chronic Assessment and plan: SBP 120's-130's. Cont amlodipine. Also on diuretics; lasix and spironolactone. Monitor (10) Aortic stenosis, severe: Status: Acute Assessment and plan: She has an appt in early may with cardiothoracic surgeon. This is likely the etiology of her current heart failure. (11) DVT prophylaxis: Status: Acute Assessment and plan: heparin (12) Discharge planning issues: Status: Acute Assessment and plan: will discharge home when stable discussed with DR Hooper Subjective Subjective Patient reports: no new complaints, feels better, tolerating liquids well, tolerating a regular diet, shortness of breath (still SOB OE) and afebrile Exam Const General: cooperative and no acute distress Nutritional Appearance: obese Orientation: alert and oriented x3 HENMT Head: normocephalic and atraumatic Eyes General: appearance normal, both eyes and all related structures Sclera: sclerae normal Pupils: PERRL Resp Effort & Inspection: normal respiratory effort Auscultation: clear to auscultation bilaterally and diminished lung sounds bilaterally in the lower lung giraldo Cardio Rate: regular rate Rhythm: regular rhythm Heart Sounds: S1 normal, S2 normal and murmur GI Palpation: soft and nontender Auscultation: normal bowel sounds Skin General skin exam: other (Thickened dermis of BLE's below the knees.) Extrem General: no calf tenderness and other Psych Appearance: grossly normal Mental Status: mental status grossly normal Speech and Movement: speech and movement normal Objective Last Vital Signs Temp 36.4 C L 05/08/21 07:42 Pulse 92 H 05/08/21 07:42 Resp 18 05/08/21 07:42 BP 122/62 05/08/21 07:42 Pulse Ox 95 05/08/21 07:42 Laboratory Results - last 24 hr 05/08/21 05/08/21 07:28 07:28 WBC 5.57 RBC 2.83 L Hgb 8.4 L Hct 25.6 L MCV 90.5 MCH 29.7 MCHC 32.8 RDW 14.6 Plt Count 109 L MPV 9.9 Immature Gran % 0.4 Neutrophils % 70.5 Lymphocytes % 14.2 Monocytes % 9.7 Eosinophils % 3.9 Basophils % 1.3 Nucleated RBC % 0 Absolute Neutrophils 3.93 Absolute Lymphocytes 0.79 L Absolute Monocytes 0.54 Absolute Eosinophils 0.22 Absolute Basophils 0.07 RBC Morphology See Below Polychromasia Present Sodium 131 L Potassium 4.3 Chloride 93 L Carbon Dioxide 36.0 H Anion Gap 2.0 L BUN 26 H Creatinine 1.1 H Estimated GFR/1.73 m2 50.01 Glucose 211 H Calcium 8.7 Magnesium 2.0
[2021-05-08 15:00] VITALS: PULSE 106
--- NOTE | 2021-05-08 15:28 | WOUNDCONS_ITS ---
- If Service Date Differs Date of service: 05/08/21 Time of Service: 15:28 Wound Initial Evaluation Narrative: Patient is a 66 YOF she presents here for CHF. While here she is found to have this foot wound dating back to 2016. She was to have seen an Health Information Director in [place] on MondayMay 07, but had to cancel due to this admission. The hospitalist service has asked us to make recommendations for management of the wound. Patient agrees to have the consult performed and signs consents. - Wound Left Upper Foot Wound Type: Statis Ulcer Wound General Appearance: Reddened, Draining, Unapproximated Wound Bed Greatest Portion: Pale Atkinson Wound Bed Lesser Portion: Dusky Red Wound Surrounding Tissue Appearance: Dark Red Percent of Wound Bed Granulated/Red: 0 Percent of Wound Bed Slough/Yellow: 0 Percent of Wound Bed Eschar/Black: 0 Wound Length: 6.3 cm Wound Width: 9.8 cm Wound Depth: 0.1 cm Wound Drainage Amount: Moderate Wound Drainage Odor: Foul Odor Wound Drainage Description: Brown Wound Topical Solution/Irrigant: Antibiotic Irrigant Wound Debridement Method: Gauze Wound Debridement Amount of Tissue Removed: Minimal Additional Other Comments: moderate amount of foul smelling brown exudate on old dressing, and removed with debridement - Circulation, Sensation, Motion Edema Degree: 1+ Peripheral Pulse Strength: Normal Capillary Refill: Less than 3 seconds Sensation Description: Pain Skin Temperature: Warm - KATIE Comment:: Compression will not be applied d/t patient current CHF - Pain Pain Level: 5 (with debridement) Pain Scale Used: Adult Pain Description: Burning Pain Duration/Frequency: Other (debridement only) - Treatment/Dressing Change Topicals/Ointments: None Cleanse With: Anasept, Debrisoft (debrisoft Lolly) Dressing Types: Alginate (Algisle), Hydrocollid (Duoderm) Additional Other Comments: Discussed with Dr. Hooper ablout the need for antibiotics d/t the presence of purulent drainage. - Recomendation Recomendation:: Cleanse with Debrisoft Lolly, and Anasept spray. Pat dry with gauze. Apply piece of Algisite M to cover open and draining area of wound bed. Secure with Duoderm signal. Change Daily or PRN. Physcian/Nurse Practioner Notified: Yes (Dr. Sabino Hooper)
[2021-05-08] MEDS: cefTRIAXone 1 GM/50 ML BAG IVPB (17:24)
[2021-05-08 19:55] VITALS: BP 114/65; PULSE 95; RESP 16; TEMP 36.5; O2SAT 97
[2021-05-08] MEDS: Ondansetron 4 MG/2 ML VIAL IVP (21:54)
[2021-05-08 22:54] VITALS: PULSE 100; O2SAT 94
[2021-05-09] VITALS (9 sets, daily range): BP systolic 105–125; BP diastolic 46–65; PULSE 89–104; RESP 16–20; TEMP 36.5–38.4; O2SAT 92–98
--- NOTE | 2021-05-09 | DI.RAD_ITS ---
Exam(s) XR PORTABLE CHEST AP EXAM: XR PORTABLE CHEST AP CLINICAL HISTORY: fever. TECHNIQUE: 2D digital imaging was performed. COMPARISON: CR,XR XR PORTABLE CHEST AP from 01/03/2021 FINDINGS: Heart size is mildly prominent.. The mediastinum is not widened. Patchy infiltrates both lungs. Also confluent infiltrate in left lower lobe and a moderate-sized lef t pleural effusion. IMPRESSION: No acute pulmonary findings on this single AP portable view of the chest.Bilateral infiltrates. Mode rate-sized left pleural effusion. Recommend nonportable PA and lateral views when clinically possibl e or alternatively CT scan. DATA REPOSITORY: RADIATION DOSE DELIVERED: All CT scans at this facility use at least one of these dose optimization techniques: automated exposure control; mA and/or kV adjustment per patient size (includes targeted e xams where dose is matched to clinical indication); or iterative reconstruction.
[2021-05-09] MEDS: Lactulose 20 GM/30 ML CUP 30 GM PO ×4 (01:40→20:40)
[2021-05-09] MEDS: Normal Saline Flush 10 ML SYR IVP ×2 (01:41→07:44)
[2021-05-09] MEDS: Pantoprazole 40 MG VIAL IVP (01:41)
[2021-05-09 07:01] LABS: Anion Gap 3.3 mmol/L (3-11); BUN 35 mg/dL (7-18); CO2 35.7 mmol/L (21.0-32.0); CREATININE 1.4 mg/dL (0.55-1.02); Calcium 9.3 mg/dL (8.5-10.1); Chloride 93 mmol/L (98-107); Estimated GFR 37.86 (mL/min/1.73m2); Glucose 197 mg/dL (74-106); HCT 26.1 % (36.0-46.0); HGB 8.5 g/dL (11.2-15.7); MCH 29.5 pg (27.0-33.0); MCHC 32.6 % (32.0-36.0); MCV 90.6 fL (80-95); MPV 10.6 fL (8.0-11.0); Potassium 4.4 mmol/L (3.5-5.1); RDW-SD 49.3 fL; Sodium 132 mmol/L (136-145); WBC 4.15 10^3/uL (4.4-10.8)
[2021-05-09 07:42] LABS: Platelet Count 91 10^3/uL (130-400)
[2021-05-09 07:43] LABS: RBC 2.88 10^6/uL (3.93-5.22)
[2021-05-09] MEDS: Sucralfate 1 GM TAB PO ×4 (07:44→21:32)
[2021-05-09] MEDS: amLODIPine 5 MG TAB PO (07:44)
[2021-05-09] MEDS: Lachydrin 12% LOTION 225 GM BTL TP ×2 (07:44→21:32)
[2021-05-09] MEDS: Furosemide 40 MG/4 ML VIAL 80 MG IVP ×2 (07:44→16:43)
[2021-05-09] MEDS: Spironolactone 50 MG TAB PO (07:45)
[2021-05-09] MEDS: Rifaximin 550 MG TAB PO ×2 (07:45→20:39)
[2021-05-09] MEDS: Pantoprazole 40 MG TABCR PO ×2 (07:45→20:39)
[2021-05-09] MEDS: Pregabalin 100 MG CAP PO ×3 (07:45→20:39)
[2021-05-09] MEDS: Zinc Sulfate 220 MG TAB PO (07:45)
--- NOTE | 2021-05-09 11:49 | W.PM.PROGNOT ---
Date of Service Date of service: 05/09/21 Time of Service: 11:49 Assessment and Plan Assessment and plan (1) Congestive heart failure due to valvular disease: Status: Acute Assessment and plan: responded to metolazone and albumin yesterday and is down 1.4 kg today, breathing slightly improved. will repeat today and continue to monitor closely in setting of severe Echocardiogram on 01/04/21 showed an Est EF of 55%. No segmental wall motion abnormalities. + severe aortic stenosis with a peak gradient of 67, mean of 44mmHg. Again, likely d/t the severe aortic stenosis. Planned CTS consult in early may. (2) UTI (urinary tract infection): Status: Acute Assessment and plan: cultures pending day 4 ceftriaxone while awaiting results (3) Liver mass: Status: Acute Assessment and plan: Needs hepatology appt. Will need to arrange before discharge. (4) Pancreatic mass: Status: Acute Assessment and plan: Previously noted cystic lesion. Needs f/u. No clinical evidence of pancreatitis. (5) Elephantiasis (nonfilarial): Status: Acute Assessment and plan: Wraps, elevation and skin care. Appt at [facility] for 05/07/21. She has cancelled it d/t this admission. wound care consult placed (6) Iron deficiency anemia: Status: Acute Assessment and plan: Hgb has decreased since last visit. Likely dilutional effect from volume overload. MCV normal. Check iron and B12 levels; last checked in 02/2020. Qualifiers: Iron deficiency anemia type: unspecified iron deficiency Qualified Code(s): D50.9 - Iron deficiency anemia, unspecified (7) Cirrhosis: Status: Chronic Assessment and plan: Cont lactulose, rifaximin and spironolactone. Total bilirubin 3.4, conjugated bili 2.10; not unusually high for her. AST 45, ALT 37. No clinical evidence of encephalopathy. Qualifiers: Hepatic cirrhosis type: other cirrhosis Qualified Code(s): K74.69 - Other cirrhosis of liver (8) Diabetes mellitus: Status: Chronic Assessment and plan: A1c of 5.6 on 04/17/21. Diabetic diet. Qualifiers: Diabetes mellitus complication status: without complication Diabetes mellitus skilled nursing insulin use: without long filler cigar roller machine use Diabetes mellitus type: type 2 Qualified Code(s): E11.9 - Type 2 diabetes mellitus without complications (9) Essential hypertension: Status: Chronic Assessment and plan: SBP 120's-130's. Cont amlodipine. Also on diuretics; lasix and spironolactone. Monitor (10) Aortic stenosis, severe: Status: Acute Assessment and plan: She has an appt in early may with cardiothoracic surgeon. This is likely the etiology of her current heart failure. (11) DVT prophylaxis: Status: Acute Assessment and plan: heparin (12) Discharge planning issues: Status: Acute Assessment and plan: will discharge home when stable discussed with DR Hooper Subjective Subjective Patient reports: no new complaints, feels better, tolerating liquids well, tolerating a regular diet, shortness of breath (still SOB OE) and afebrile Exam Const General: cooperative and no acute distress Nutritional Appearance: obese Orientation: alert and oriented x3 HENMT Head: normocephalic and atraumatic Eyes General: appearance normal, both eyes and all related structures Sclera: sclerae normal Pupils: PERRL Resp Effort & Inspection: normal respiratory effort Auscultation: clear to auscultation bilaterally and diminished lung sounds bilaterally in the lower lung giraldo Cardio Rate: regular rate Rhythm: regular rhythm Heart Sounds: S1 normal, S2 normal and murmur GI Palpation: soft and nontender Auscultation: normal bowel sounds Skin General skin exam: other (Thickened dermis of BLE's below the knees.) Extrem General: no calf tenderness and other Psych Appearance: grossly normal Mental Status: mental status grossly normal Speech and Movement: speech and movement normal Objective Last Vital Signs Temp 37.3 C 05/09/21 06:59 Pulse 91 H 05/09/21 07:00 Resp 18 05/09/21 06:59 BP 111/65 05/09/21 06:59 Pulse Ox 98 05/09/21 06:59 Laboratory Results - last 24 hr 05/09/21 05/09/21 06:45 06:45 WBC 4.15 L RBC 2.88 L Hgb 8.5 L Hct 26.1 L MCV 90.6 MCH 29.5 MCHC 32.6 RDW 15.0 H Plt Count 91 L MPV 10.6 Sodium 132 L Potassium 4.4 Chloride 93 L Carbon Dioxide 35.7 H Anion Gap 3.3 BUN 35 H D Creatinine 1.4 H Estimated GFR/1.73 m2 37.86 Glucose 197 H Calcium 9.3 Magnesium 2.0
[2021-05-09] MEDS: cefTRIAXone 1 GM/50 ML BAG IVPB (18:25)
--- NOTE | 2021-05-09 18:51 | NUR.NOTE ---
Nursing Note: Patients weight up nearly .8 kg today, c still have not received any orders for fingersticks trending in the 250. Patient still tends to be very lethargic in the afternoon. Algisite in wound on left foot was saturated but there was very little exudate on the wound surface
[2021-05-09] MEDS: Acetaminophen 325 MG TAB 650 MG PO (20:41)
--- NOTE | 2021-05-09 20:59 | DI.VRAD_ITS ---
PROCEDURE INFORMATION: Exam: XR Chest Exam date and time: 05/09/2021 8:34 PM Age: 66 years old Clinical indication: Fever TECHNIQUE: Imaging protocol: XR of the chest. Views: 1 view. COMPARISON: CT CHEST PE CTA 05/06/2021 5:41 PM FINDINGS: Lungs: There are bilateral patchy opacities suspicious for multifocal infection such as from COVID. Pleural spaces: Density at the left lung base obscuring the left hemidiaphragm may be from pleural effusion and/or atelectasis. Heart/Mediastinum: Unremarkable cardiomediastinal silhouette. No cardiomegaly. Bones/joints: Unremarkable. IMPRESSION: 1. Bilateral patchy opacities suspicious for multifocal infection such as from COVID. 2. Density at the left base obscuring the left hemidiaphragm may be from pleural effusion and/or atelectasis. Dictated and Authenticated by: Ruiz Burger MD. Ordering:VOLODYMYR López MD
[2021-05-09] MEDS: Triamcinolone 0.1% CR 80 GM TUBE TP (21:32)
[2021-05-09 22:45] LABS: Source Nasal/Nares
[2021-05-09 23:37] LABS: COVID-19 PCR POSITIVE (Negative)
[2021-05-10] VITALS (59 sets, daily range): BP systolic 103–138; BP diastolic 50–74; PULSE 82–94; RESP 18–29; TEMP 35.9–37.2; O2SAT 88–97
[2021-05-10] MEDS: REMDESIVIR 200 MG in Normal Saline 250 ML 250 MG IVPB (01:28)
[2021-05-10] MEDS: Water,Injection,Sterile 10 ML VIAL (01:29)
[2021-05-10] MEDS: Normal Saline Flush 10 ML SYR IVP ×4 (01:29→13:30)
[2021-05-10 07:04] LABS: Lactate 2.8 mmol/L (0.6-1.4)
[2021-05-10 07:18] LABS: ALT 42 U/L (14-59); AST 80 U/L (15-37); Albumin 2.7 g/dL (3.4-5.0); Alkaline Phosphatase 188 U/L (46-116); Bilirubin, Direct 1.3 mg/dL (0.0-0.2); Bilirubin, Total 2.1 mg/dL (0.2-1.0); Total Protein 5.9 g/dL (6.4-8.2)
[2021-05-10 07:22] LABS: Anion Gap 3.9 mmol/L (3-11); BUN 41 mg/dL (7-18); C-Reactive Protein 2.36 mg/dL (0.0-0.3); CO2 37.1 mmol/L (21.0-32.0); CREATININE 1.8 mg/dL (0.55-1.02); Calcium 8.8 mg/dL (8.5-10.1); Chloride 92 mmol/L (98-107); Creatine Kinase 194 U/L (26-192); Estimated GFR 28.33 (mL/min/1.73m2); Glucose 214 mg/dL (74-106); Potassium 3.7 mmol/L (3.5-5.1); Sodium 133 mmol/L (136-145)
[2021-05-10 07:30] LABS: HCT 25.5 % (36.0-46.0); HGB 8.2 g/dL (11.2-15.7); MCHC 32.2 % (32.0-36.0); MCV 93.4 fL (80-95); RBC 2.73 10^6/uL (3.93-5.22); WBC 3.45 10^3/uL (4.4-10.8)
[2021-05-10 07:31] LABS: Absolute Eosinophil Count 0.29 10^3/uL (0.0-0.7); Absolute Lymphocyte Count 0.62 10^3/uL (1.2-3.4); Absolute Monocyte Count 0.71 10^3/uL (0.1-0.8); Absolute Neutrophil Count 1.77 10^3/uL (1.2-6.7); Eosinophils % 8.4; MPV 10.9 fL (8.0-11.0); Monocytes % 20.6; Neutrophils % 51.2; Platelet Count 75 10^3/uL (130-400); RDW 14.7 % (11.7-14.6); RDW-SD 50.6 fL
[2021-05-10 07:32] LABS: Absolute Basophil Count 0.04 10^3/uL (0.0-0.2); Basophilic Stippling Present; Basophils % 1.2; Diff Comment Diff Reviewed; Immature Grans % 0.6; Nucleated RBC 0 %
[2021-05-10 07:36] LABS: Troponin I 2.44 ng/mL (<0.06)
[2021-05-10 07:54] LABS: Procalcitonin 0.5 ng/mL
[2021-05-10 07:58] LABS: D-Dimer 494 ng/mlFEU (<500)
[2021-05-10 07:59] LABS: Ferritin 63 ng/mL (8-252)
[2021-05-10] MEDS: Cholecalciferol (Vitamin D3) 1,000 UNIT TAB 2000 UNITS PO (08:33)
[2021-05-10] MEDS: Famotidine 20 MG TAB PO (08:33)
[2021-05-10] MEDS: amLODIPine 5 MG TAB PO (08:33)
[2021-05-10] MEDS: Ascorbic Acid 500 MG TAB 1000 MG PO (08:33)
[2021-05-10] MEDS: Pregabalin 100 MG CAP PO (08:34)
[2021-05-10] MEDS: Spironolactone 50 MG TAB PO (08:34)
[2021-05-10] MEDS: Zinc Sulfate 220 MG TAB PO (08:34)
[2021-05-10] MEDS: Rifaximin 550 MG TAB PO (08:34)
[2021-05-10] MEDS: Sucralfate 1 GM TAB PO ×2 (08:35→11:45)
[2021-05-10] MEDS: Lactulose 20 GM/30 ML CUP 30 GM PO (09:46)
[2021-05-10] MEDS: Furosemide 40 MG/4 ML VIAL 80 MG IVP (09:46)
--- NOTE | 2021-05-10 10:45 | RT.EKG_ITS ---
APPROVED REPORT Exam: Resting ECG Reason for Exam: not feeling well, elevated trop, higher than siri Patient Location: I HR:93 bpm ECG Measurements Heart Rate 93 AXIS OK 145 P 47 QRSd 126 QRS 69 QT 377 T -73 QTc 470 Conclusion Sinus rhythm...normal P axis, V-rate 60- 99 Ventricular premature complex...V complex w/ short R-R interval Left atrial enlargement...P, P'>60mS, <-0.15mV V1 Nonspecific intraventricular conduction delay...QRSd >115mS, not LBBB/RBBB Inferior infarct, age indeterminate...Q>35mS, T neg, II III aVF Anteroseptal infarct, acute...ST >0.20mV, V1-V2 Anterior ST elevation c/w STEMI
--- NOTE | 2021-05-10 10:52 | PDOC.CMPRO ---
- If Service Date Differs Date of service: 05/10/21 Time of Service: 10:52 Care Management Progress Note S/O: Mayra is currently under precautions after testing positive for Covid19. CM is unable to see her at this time. Per report, she had a chest xray last night due to a fever, which indicated infection such as Covid19. She then had a positive Covid19 test, and was put on precautions. Per report, she had a STEMI and was transferred to [facility] by [facility]. CM will continue to follow. A: Mayra is a 66 year old female admitted to [facility] on 05/06/21 with acute CHF. P: Mayra was transferred emergently to [facility] after suffering a STEMI. She was transported via [facility], coordinated by the RN Mutuel Machine Operator. She will follow up with her PCP and discharge plan of care.
[2021-05-10 10:53] LABS: Bilirubin Negative (Negative); Blood Moderate (Negative); Clarity Clear (Clear); Glucose Negative (Negative); Ketones Negative (Negative); Leukocyte Esterase Negative (Negative); Nitrite Negative (Negative); Urobilinogen 0.2 EU/dL (Up TO 0.2); pH 5.5 (5-8)
[2021-05-10 11:13] LABS: Epithelial Cells Rare HPF (Negative); Other Cells Negative (Negative)
[2021-05-10 11:14] LABS: Bacteria Few HPF (Negative); C & S Indicated? C&S Done As Ordered; Casts Negative LPF (Negative); Crystals Negative HPF (Negative); Mucus Negative (Negative)
[2021-05-10 11:51] LABS: Troponin I 2.32 ng/mL (<0.06)
[2021-05-10] MEDS: Aspirin 325 MG TAB PO (13:29)
[2021-05-10] MEDS: Metoprolol 25 MG TAB PO (13:29)
--- NOTE | 2021-05-10 13:48 | DSE_ITS ---
Date of service: 05/10/21 Time of Service: 13:48 DS: Diagnosis Discharge Diagnosis (1) Congestive heart failure due to valvular disease: Start date: 05/10/21 Start time: 13:49 Status: Acute Asessment and Plan: Patient currently having STEMI, confirmed by Dr. Gillis. [facility] called for admission, she has been accepted to [facility] Dr Norris to MICU for further management. She is COVID positive requiring oxygen. She is on a heparin gtt and receiving TKA per dressage judge and [facility] recommendation even in setting of esophageal varacies. She is also receiving PO lopressor. She is SOB, denies CP, feeling weak, She will be transported via dart to [facility] Echocardiogram on 01/04/21 showed an Est EF of 55%. No segmental wall motion abn ormalities. + severe aortic stenosis with a peak gradient of 67, mean of 44mmHg. Again, likely d/t the severe aortic stenosis. Planned CTS consult in early may. (2) UTI (urinary tract infection): Start date: 05/10/21 Start time: 13:55 Status: Acute Asessment and Plan: Found on admission being treated with ceftriaxone (3) Liver mass: Start date: 05/10/21 Start time: 13:57 Status: Acute Asessment and Plan: Needs hepatology appt. (4) Pancreatic mass: Start date: 05/10/21 Start time: 13:57 Status: Acute Asessment and Plan: Previously noted cystic lesion. Needs f/u. (5) Elephantiasis (nonfilarial): Start date: 05/10/21 Start time: 13:57 Status: Acute Asessment and Plan: Wraps, elevation and skin care. Appt at [facility] for 05/07/21. She has cancelled it d/t this admission. will need wound care consult (6) Iron deficiency anemia: Start date: 05/10/21 Start time: 13:58 Status: Chronic Asessment and Plan: Iron normal B 12 high Likely due to underlying chronic issues (7) Cirrhosis: Start date: 05/10/21 Start time: 14:00 Status: Chronic Asessment and Plan: Cont lactulose, rifaximin and spironolactone. Total bilirubin 3.4, conjugated bili 2.10; not unusually high for her. AST 45, ALT 37. No clinical evidence of encephalopathy. (8) Diabetes mellitus: Start date: 05/10/21 Start time: 14:00 Status: Chronic Asessment and Plan: A1c of 5.6 on 04/17/21. Diabetic diet. (9) Essential hypertension: Start date: 05/10/21 Start time: 14:01 Status: Chronic Asessment and Plan: as above (10) Aortic stenosis, severe: Start date: 05/10/21 Start time: 14:01 Status: Acute Asessment and Plan: as above Discharge Plan Disposition Patient Disposition: [facility] Condition: Stable Discharge Details Reason For Visit: Acute Congestive Heart Failure Admit Date/Time: 05/06/21 18:34 Admit Provider: Sabino Hooper Attending Provider: Sabino Hooper Primary Care Provider: Malu Baron [facility] Hospital Course: This is a 66 yo female. She has a PMH of severe aortic stenosis, lymphedema/elephantiasis, cirrhosis with previous esophageal variceal bleed, HFpEF, DAMIAN, DM2 diet controlled, HTN. She presented with a 1 day h/o shortness of air. She denied CP/palpitations, cough/sputum, F/C. No n/v/abd pain. No dysuria. Workup in the ED: CT chest with pulmonary edema and pleural effusions. No pulmonary embolism. Covid test was negative. Troponin 0.2; consistent with a chronic midly elevated troponin. WBC count normal. Hgb 9.3; was 10.2 earlier in the month. No melena or hematochezia endorsed. CT also showed an interval increase in the size of a right hepatic mass that is suggestive of a primary hepatocellular carcinoma. TIPS shunt noted. Also noted was a 1.1 cm oval lesion in the right T2 vertebral body; concerning for a possible osseous metastasis from HCC Her urine was suggestive of a UTI and Rocephin was given in the ED. Also administered was 80mg IV lasix. She was admitted to m/s for further management. She was placed on lasix 80 BID, Vitamin C, D, melatonin, dexamathasone and remdesivir for COVID On 05/09 she tested COVID positive. She has been being treated for UTI with Rocep hin. Today she wasn't feeling well, her troponin was 2.44, EKG was ordered. question of STEMI, dressage judge Dr. Gillis called regarding EKG and she verified that it was an acute OH. [facility] called regarding patient status. At first they would not accept her because she was DNR/DNI, spoke with Mayra she rescinded this and wanted to be full code to be treated for OH. [facility] called back and she was accepted for transfer to MICU by Dr. Norris. They asked she be started on TKA in addition to heparin gtt and lopressor. She is feeling SOB requiring 2 L oxygen, likely from COVID. She will be transported via dart. Dr. Yee made aware of the situation as well. Patient is being transferred for further management. She will be a STEMI alert. Home Meds and New Rx's Prescriptions: No Action (DME) OneTouch Ultra Test strip 1 ea Miscellaneous QID Qty: 300 RF: 5 amlodipine 5 mg tablet 5 mg PO DAILY Qty: 90 RF: 5 Xifaxan 550 mg tablet 550 mg PO BID Qty: 180 RF: 2 sucralfate 1 gram tablet 1 g PO AC & HS Qty: 360 RF: 12 furosemide 20 mg tablet See Rx Instructions PO DAILY RF: 0 ferrous sulfate [iron] 325 mg (65 mg iron) tablet 325 mg PO DAILY RF: 0 ammonium lactate 12 % lotion 1 applic topical BID RF: 0 zinc sulfate 220 MG capsule 220 mg PO DAILY Qty: 90 RF: 3 (DME) pen needle, diabetic [BD Ultra-Fine Orig Pen Needle] 1 EACH needle 1 ea Miscellaneous BID Qty: 180 RF: 3 triamcinolone acetonide 0.1 % cream 1 applic TP QID Qty: 80 RF: 1 ondansetron HCl [Zofran] 4 mg tablet 4 mg PO DAILY PRN (Reason: nausea and vomiting) Qty: 90 RF: 3 lactulose 20 gram/30 mL solution 10 g PO TID Qty: 3000 RF: 5 pregabalin 100 mg capsule 100 mg PO TID Qty: 270 RF: 4 spironolactone 50 mg tablet 50 mg PO DAILY Qty: 90 RF: 4 pantoprazole 40 mg tablet,delayed release (DR/EC) 40 mg PO DAILY Qty: 180 RF: 3 oxycodone 5 mg tablet 10 mg PO QHS MDD 2 PRN (Reason: pain) Qty: 30 RF: 0 fluocinonide 0.05 % ointment 1 applic TOPICAL DAILY RF: 0 mupirocin 2 % ointment 0 applic TOPICAL DAILY RF: 0 ascorbic acid (vitamin C) [Vitamin C] 500 mg Tablet 500 mg PO DAILY Qty: 30 RF: 0 cephalexin 500 mg capsule 500 mg PO TID Qty: 15 RF: 0 Discharge Instructions Instructions: Heart Attack (DC) Additional Instructions: Transfer to [facility] Activity:: Activity as Tolerated Equipment/Supplies:: No Equipment Needed Diet:: As Tolerated Discharge Orders Discharge Orders: Discharge Order (Routine); Ordered 05/10/21 Ordered By: Nohemy Arellano DS: Summary Time Spent with Patient providing and/or coordinating discharge services: Greater than 30 minutes Status at Discharge Functional status at discharge: uses cane/walker Overall status at discharge: patient is not back to baseline Mental Status: mental status grossly normal Speech and Movement: speech and movement normal Mood: congruent mood Affect: sad Exam Const General: cooperative and no acute distress Nutritional Appearance: obese Orientation: alert and oriented x3 HENMT Head: normocephalic and atraumatic Eyes General: appearance normal, both eyes and all related structures Sclera: scleral abnormality (icteric) Pupils: PERRL Resp Effort & Inspection: normal respiratory effort Auscultation: clear to auscultation bilaterally and diminished lung sounds bilaterally in the lower lung giraldo Cardio Rate: regular rate Rhythm: regular rhythm Heart Sounds: S1 normal, S2 normal and murmur GI Palpation: soft and nontender Auscultation: normal bowel sounds Skin General skin exam: other (Thickened dermis of BLE's below the knees.) Extrem General: no calf tenderness and other Psych Appearance: grossly normal Mental Status: mental status grossly normal Speech and Movement: speech and movement normal Mood: congruent mood Affect: sad DS: Data Vitals/I&O Vitals and I&O: Vital Signs Temperature 36.8 C 05/10/21 10:30 Temperature Source Tympanic 05/10/21 10:30 Pulse 88 05/10/21 10:30 Pulse Rhythm Regular 05/10/21 08:40 Respiratory Rate 22 05/10/21 10:30 Respiratory Effort 05/10/21 08:40 Respiratory Depth Shallow 05/10/21 08:40 Respiratory Pattern Normal 05/10/21 08:40 Blood Pressure 128/54 L 05/10/21 10:30 Blood Pressure Position Sitting 05/06/21 14:49 Pulse Oximetry 93 05/10/21 10:30 Oxygen Delivery Method Nasal Cannula 05/10/21 10:30 Oxygen Flow Rate 2 05/10/21 10:30 Pain Level 0 05/10/21 05:40 Comment 05/09/21 03:05 Intake & Output 05/09/21 05/10/21 05/10/21 23:59 11:59 23:59 Intake Total 400 / 475 360 / 360 Output Total 300 / 300 Balance 400 / 475 60 / 60 Intake: IV 60 / 60 260 / 260 Oral 340 / 415 100 / 100 Output: Urine 300 / 300 Other: Urine Color Yellow Yellow Urine Appearance Clear Clear Urine Odor Normal Comment large void mixed with stool, could not measure mixed with stool. cant send sample. Stool Size Moderate Moderate Stool Characteristics Soft Liquid Brown Voiding Methods Bedside Commode Bedside Commode Data Completed and Pending Completed studies during hospitalization [Text1]: Exam(s) a CT:CT chest PE CTA Exam(s) CT CHEST PE CTA EXAM: CT CHEST PE CTA CLINICAL HISTORY: shortness of breath, hypoxia. TECHNIQUE: Imaging Protocol: Axial CT angiography was performed with multi- slice acquisition and multi-planar and/or 3D reconstructions. CONTRAST MATERIAL: Intravenous: Omnipaque 350 Contrast volume:100 mL COMPARISON: CT CT CHEST W from 04/11/[address] CHEST W from 04/11/[address] CHEST PE CTA from 08/11/[address] CHEST PE CTA from 08/11/[address] ABDOMEN PELVIS WO/W from 03/17/2021 FINDINGS: Tracheobronchial tree: Patent where visualized. Pulmonary parenchyma: Since the CT scan of the chest from 03/17/2021, there have developed moderate size bilateral pleural effusions and bilateral subjacent infiltrates which may represent atelectasis or pneumonia. No architectural distortion. There does appear to be mild interstitial pulmonary edema. Pulmonary Arteries: No evidence of filling defect to suggest pulmonary emboli. Mediastinum and Aleyda: No dominant adenopathy or fluid collection. Visualized thyroid gland: Unremarkable. Pleura: Please see above. Heart: Mild cardiomegaly. Mild coronary artery calcification. No pericardial effusion. Aorta: Thoracic aorta non-dilated. [id number] atherosclerosis. No evidence of dissection. Upper abdomen: There is a TIPS. The liver is small with a nodular contour consistent with hepatic cirrhosis. There is an enhancing lesions seen in the right lobe of the liver which now measures 3.8 cm. This compares to 2.[address] scan of the chest from 08/11/2020. There is splenomegaly. Embolization of varices is noted. Soft tissues: Unremarkable. Bones: Within normal limits for the patient's age. Status post anterior cervical disc fusion in the lower cervical spine.The hypodensity in the T2 vertebral body is unchanged compared to the CT scan from 04/11/2019. IMPRESSION: 1. No evidence of pulmonary embolism, thoracic aortic dissection or aneurysm. 2. Interval development of moderate bilateral pleural effusions with subjacent infiltrates. Cardiomegaly and interstitial edema suggest congestive heart failure. 3. Findings of hepatic cirrhosis. 4. Interval increase in size of enhancing lesion in the right lobe of the liver. Carcinoma cannot be excluded. Exam(s) PROCEDURE INFORMATION: Exam: CTA Chest With Contrast Exam date and time: 05/06/2021 5:01 PM Age: 66 years old Clinical indication: Shortness of breath TECHNIQUE: Imaging protocol: Computed tomographic angiography of the chest with contrast. 3D rendering (Not supervised by radiologist): MIP and/or 3D reconstructed images were created by the technologist. COMPARISON: CT CHEST PE CTA 08/11/2020 10:02 AM FINDINGS: Pulmonary arteries: Contrast fills the pulmonary artery and its branch vessels satisfactorily. No intraluminal filling defect to suggest pulmonary embolism. Aorta: Unremarkable. No aortic aneurysm. No aortic dissection. Lungs: Interlobular septal thickening representing interstitial pulmonary edema. Single posterolateral juxtapleural focus of pulmonary airspace opacity in the lateral left upper lobe, nonspecific but likely related to pulmonary edema. No focal consolidations or wedge infarcts. Pleural spaces: Small to moderate bilateral pleural effusions with adjacent subsegmental atelectasis. Heart: Cardiomegaly. Lymph nodes: Unremarkable. No enlarged lymph nodes. Liver: Cirrhotic liver with TIPS shunt. An arterially enhancing mass at the hepatic dome has increased from 2.7 cm to 3.8 cm on series 5, image 45. Spleen: Embolization coils in the left gastric and splenic arteries. Splenomegaly measuring 15 cm. Bones/joints: Right T2 1.1 cm oval osseous hypodensity which may represent a benign osseous hemangioma. However, metastatic hepatocellular carcinoma cannot be excluded. Attention to this finding is suggested on follow-up restaging CT studies. Soft tissues: Unremarkable. Other findings: Postoperative changes of ACDF. IMPRESSION: 1. No pulmonary embolism 2. Interval increase in size of a right hepatic mass most suggestive of a primary hepatocellular carcinoma in the background of chronic cirrhosis. Adjacent TIPS shunt. Splenomegaly. 3. Small to moderate bilateral layering pleural effusions with adjacent subsegmental atelectasis. Interstitial pulmonary edema and cardiomegaly suggestive of congestive heart failure. 4. A 1.1 cm oval lesion in the right T2 vertebral body. Attention to this finding is suggested on follow-up to exclude osseous metastasis from HCC. Exam(s) XR PORTABLE CHEST AP EXAM: XR PORTABLE CHEST AP CLINICAL HISTORY: fever. TECHNIQUE: 2D digital imaging was performed. COMPARISON: CR,XR XR PORTABLE CHEST AP from 01/03/2021 FINDINGS: Heart size is mildly prominent.. The mediastinum is not widened. Patchy infiltrates both lungs. Also confluent infiltrate in left lower lobe and a moderate-sized left pleural effusion. IMPRESSION: No acute pulmonary findings on this single AP portable view of the chest.Bilateral infiltrates. Moderate-sized left pleural effusion. Recommend nonportable PA and lateral views when clinically possible or alternatively CT scan. DATA REPOSITORY: RADIATION DOSE DELIVERED: All CT scans at this facility use at least one of these dose optimization techniques: automated exposure control; mA and/or kV adjustment per patient size (includes targeted exams where dose is matched to clinical indication); or iterative reconstruction. Exam(s) PROCEDURE INFORMATION: Exam: XR Chest Exam date and time: 05/09/2021 8:34 PM Age: 66 years old Clinical indication: Fever TECHNIQUE: Imaging protocol: XR of the chest. Views: 1 view. COMPARISON: CT CHEST PE CTA 05/06/2021 5:41 PM FINDINGS: Lungs: There are bilateral patchy opacities suspicious for multifocal infection such as from COVID. Pleural spaces: Density at the left lung base obscuring the left hemidiaphragm may be from pleural effusion and/or atelectasis. Heart/Mediastinum: Unremarkable cardiomediastinal silhouette. No cardiomegaly. Bones/joints: Unremarkable. IMPRESSION: 1. Bilateral patchy opacities suspicious for multifocal infection such as from COVID. 2. Density at the left base obscuring the left hemidiaphragm may be from pleural effusion and/or atelectasis. Labs on day of discharge: Labs from last 24 hours 05/10/21 05/10/21 05/10/21 11:15 10:08 06:50 WBC RBC Hgb Hct MCV MCH MCHC RDW Plt Count MPV Immature Gran % Neutrophils % Lymphocytes % Monocytes % Eosinophils % Basophils % Nucleated RBC % Absolute Neutrophils Absolute Lymphocytes Absolute Monocytes Absolute Eosinophils Absolute Basophils RBC Morphology Basophilic Stippling D-Dimer 494 VBG Lactate Sodium Potassium Chloride Carbon Dioxide Anion Gap BUN Creatinine Estimated GFR/1.73 m2 Glucose Calcium Magnesium Ferritin Total Bilirubin Conjugated Bilirubin AST ALT Alkaline Phosphatase Creatine Kinase Troponin I 2.32 H* C-Reactive Protein Total Protein Albumin Procalcitonin Urine Color Yellow Urine Clarity Clear Urine pH 5.5 Ur Specific Sheridan 1.020 Urine Protein Negative Urine Ketones Negative Urine Blood Moderate H Urine Nitrite Negative Urine Bilirubin Negative Urine Urobilinogen 0.2 Ur Leukocyte Esterase Negative Urine RBC 10-20 H Urine WBC 3-5 Ur Epithelial Cells Rare Urine Crystals Negative Urine Bacteria Few Urine Casts Negative Urine Mucus Negative Urine Other Negative Ur Culture Indicated? C&S Done As Ordered Urine Glucose Negative COVID-19 Source SARS-CoV-2 (PCR) 05/10/21 05/10/21 05/10/21 06:50 06:50 06:50 WBC 3.45 L RBC 2.73 L Hgb 8.2 L Hct 25.5 L MCV 93.4 MCH 30.0 MCHC 32.2 RDW 14.7 H Plt Count 75 L MPV 10.9 Immature Gran % 0.6 Neutrophils % 51.2 Lymphocytes % 18.0 Monocytes % 20.6 Eosinophils % 8.4 Basophils % 1.2 Nucleated RBC % 0 Absolute Neutrophils 1.77 Absolute Lymphocytes 0.62 L Absolute Monocytes 0.71 Absolute Eosinophils 0.29 Absolute Basophils 0.04 RBC Morphology See Below Basophilic Stippling Present D-Dimer VBG Lactate 2.8 H* Sodium Potassium Chloride Carbon Dioxide Anion Gap BUN Creatinine Estimated GFR/1.73 m2 Glucose Calcium Magnesium Ferritin Total Bilirubin 2.1 H Conjugated Bilirubin 1.3 H AST 80 H ALT 42 Alkaline Phosphatase 188 H Creatine Kinase Troponin I C-Reactive Protein Total Protein 5.9 L Albumin 2.7 L Procalcitonin 0.5 Urine Color Urine Clarity Urine pH Ur Specific Sheridan Urine Protein Urine Ketones Urine Blood Urine Nitrite Urine Bilirubin Urine Urobilinogen Ur Leukocyte Esterase Urine RBC Urine WBC Ur Epithelial Cells Urine Crystals Urine Bacteria Urine Casts Urine Mucus Urine Other Ur Culture Indicated? Urine Glucose COVID-19 Source SARS-CoV-2 (PCR) 05/10/21 05/09/21 06:50 22:40 WBC RBC Hgb Hct MCV MCH MCHC RDW Plt Count MPV Immature Gran % Neutrophils % Lymphocytes % Monocytes % Eosinophils % Basophils % Nucleated RBC % Absolute Neutrophils Absolute Lymphocytes Absolute Monocytes Absolute Eosinophils Absolute Basophils RBC Morphology Basophilic Stippling D-Dimer VBG Lactate Sodium 133 L Potassium 3.7 Chloride 92 L Carbon Dioxide 37.1 H Anion Gap 3.9 BUN 41 H Creatinine 1.8 H Estimated GFR/1.73 m2 28.33 Glucose 214 H Calcium 8.8 Magnesium 2.0 Ferritin 63 Total Bilirubin Conjugated Bilirubin AST ALT Alkaline Phosphatase Creatine Kinase 194 H Troponin I 2.44 H* C-Reactive Protein 2.36 H Total Protein Albumin Procalcitonin Urine Color Urine Clarity Urine pH Ur Specific Sheridan Urine Protein Urine Ketones Urine Blood Urine Nitrite Urine Bilirubin Urine Urobilinogen Ur Leukocyte Esterase Urine RBC Urine WBC Ur Epithelial Cells Urine Crystals Urine Bacteria Urine Casts Urine Mucus Urine Other Ur Culture Indicated? Urine Glucose COVID-19 Source Nasal/Nares SARS-CoV-2 (PCR) POSITIVE A* 05/10/21 10:08 Urine - Clean Catch Urine Culture - Pending 05/09/21 21:45 Blood Blood Culture - Pending 05/09/21 21:35 Blood Blood Culture - Pending Preliminary micro results at discharge 05/10/21 10:08 Urine Culture - Pending Urine - Clean Catch 05/09/21 21:45 Blood Culture - Pending Blood 05/09/21 21:35 Blood Culture - Pending Blood [facility] Medical History (Updated 05/10/21 @ 13:58 by Nohemy Arellano NP) Abdominal pain, chronic, epigastric (03/23/16) Advance directive on file Annual physical exam (02/22/18) Aortic stenosis, severe Bacteremia Bacteremia due to group B Streptococcus Bleeding esophageal varices (03/10/16) Breast mass CAP (community acquired pneumonia) Carpal tunnel syndrome right; s/p release Cellulitis Cellulitis Cervical disc disorder with myelopathy (09/04/12) Chronic epigastric pain (03/23/16) Complicated UTI (urinary tract infection) Diabetic foot infection Discharge planning issues DVT femoral (deep venous thrombosis) with thrombophlebitis DVT prophylaxis DVT prophylaxis Edema, unspecified 06/28/16 B/L Elevated troponin Elevation of level of transaminase and lactic acid dehydrogenase (LDH) Epistaxis Esophageal varices with hemorrhage Fever Fever, unknown origin 04/14/16 Fluid overload Foot pain GI bleed Gram-positive bacteremia Hepatic encephalopathy (03/10/16) Hyperlipidemia (09/04/12) Incisional hernia (01/15/15) Increased body mass index Mild epistaxis 12/21/15 Nausea Pancytopenia Physical deconditioning Pleural effusion Pneumonia Portal hypertension Sepsis Sepsis Sepsis syndrome [place] [place] 2.3[place]; neg. biopsy Uninodular goiter Tubular adenoma (04/12/13) Surgical History Colonoscopy - IV Sedation (04/12/13) DR. Bhumika CLAYTON Open Carpal Tunnel release RIGHT PROCEDURES OTHER CERVICAL FUS ANT [place] [facility] [place] NEGATIVE THYROID BX S/P carpal tunnel release right S/P cervical spinal fusion anterior; discectomy S/P cervical spinal fusion anterior;discectomy S/P tonsillectomy Status post biopsy of thyroid gland 09/18/08 neg Status post carpal tunnel release Status post cervical spinal arthrodesis Status post tonsillectomy Tonsillectomy Family History Mother Pancreatic cancer Father Diabetes Essential hypertension Stroke Sister Heart disease Brother Bone cancer Liver cancer Maternal Grandfather No problems noted. Paternal Grandfather No problems noted. Maternal Grandmother , OLD AGE at age 89. No problems noted. Paternal Grandmother Breast cancer Sister Diabetes Colon cancer Rectal cancer Sister Diabetes Son No problems noted. Son No problems noted. Daughter No problems noted. Daughter Alcohol abuse Asthma Social History Smoking/Tobacco Use Status: Former Tobacco Use Tobacco: How many years used: 2 Second Hand Exposure: Yes Smoking risk assessment performed?: Yes Alcohol Intake: current Alcohol Intake frequency: holidays/special occasions only Drug use: Never Substance use type: does not use Counseling given: No Household members: spouse and children Housing: house Communication Needs: None Do you need help understanding health information?: Rarely Pets and animals: Yes Pets and animals: dog(s) Sexually active: No Do you think of yourself as: straight/heterosexual Current gender identity: female What is your relationship status?: How often do you talk on the phone with friends or family?: three or more times per week How often do you get together with friends or relatives?: once per week How often do you attend samaritan or yarsanism services?: 1-3 times per year Do you belong to any clubs or organized social groups?: no Panel score (0-1 are the most socially isolated patients): 2 What type of physical activity do you participate in: decline to answer Duration: < 15 minutes/day Frequency: 1-2 times per week [employer] Special lyubov needs: No Seatbelt use: always Helmet use: No Drive intox or ride w/intox salesperson driver: No Do you feel safe at home: Yes Do you feel safe in your relationship?: Yes
--- NOTE | 2021-05-10 13:59 | PCNE_ITS ---
Date of service: 05/10/21 Time of Service: 06:00 History of Present Illness History of Present Illness Chief Complaint: weakness, sob Narrative: Mayra is a 66-year-old woman who is well-known to me. I have been her PCP for the last 3 years. Her comorbidities include nonalcoholic cirrhosis with esophageal varices, pancreatic mass with follow-up planned, severe recurrent cellulitis in both legs with edema, critical aortic stenosis, and most recently exposure to COVID-19 resulting in her becoming infected. Initially Mayra came to the hospital because of shortness of breath. Her initial Covid test was negative, but 2 days later was positive. She had been exposed via her daughter who lives with her who had recently visited [facility] and came in contact with someone who tested positive for Covid. She had contacted my office initially and we had urged her to get a Covid test and also quarantine. Prior to being able to do this she ended up in the hospital because of respiratory problems. I saw her initially in the morning. At that time she said she was feeling better. She did have oxygen in place. She was upset about her Covid diagnosis but felt she was doing fairly well. She expected to improve but unfortunately over the day her troponins became elevated and she had EKG changes. In the past when I spoke to her about her CODE STATUS she did want full code, this admission she had spoken to the hospitalist and had wanted to be designated is a DNR/DNI. My plan was to revisit this in the afternoon, but prior to this she was airlifted to [facility]. 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 She was airlifted to [facility] because of her rising troponins and saturation difficulties. [facility] declined to accept her unless she became a full code which she did prior to being airlifted Mayra has had longstanding multiple comorbidities now complicated with Covid Regarding her elephantiasis?she does have an appointment to be seen at [facility]. She actually had to cancel it last week because of quarantining for possible Covid. Unfortunately until her recurrent cellulitis is properly incompletely treated her cardiac physician has declined to do an aortic valve replacement. Her recurrent shortness of breath and CHF secondary to her has caused multiple readmissions to the hospital. She now has a liver mass which has not been worked up. She did have a pancreatic mass with recurrent MRI done recommended a 6-month follow-up. Cirrhosis?[place] [facility] And at this time is stable. Anemia very concerning considering she is also started on a heparin drip Elevated troponins with definite EKG changes?she is being transported to [facility] with the expectation of a cardiac catheterization. I am hoping she should arrives this hospitalization Review of Systems Narrative: She had difficult days with her breathing. She was hungry but not wanting to eat much, she did have chest pain. Her legs itched and she had a lot of swelling. She was depressed over the current events [facility] Medical History (Updated 05/10/21 @ 13:58 by Nohemy Arellano NP) Abdominal pain, chronic, epigastric (03/23/16) Advance directive on file Annual physical exam (02/22/18) Aortic stenosis, severe Bacteremia Bacteremia due to group B Streptococcus Bleeding esophageal varices (03/10/16) Breast mass CAP (community acquired pneumonia) Carpal tunnel syndrome right; s/p release Cellulitis Cellulitis Cervical disc disorder with myelopathy (09/04/12) Chronic epigastric pain (03/23/16) Complicated UTI (urinary tract infection) Diabetic foot infection Discharge planning issues DVT femoral (deep venous thrombosis) with thrombophlebitis DVT prophylaxis DVT prophylaxis Edema, unspecified 06/28/16 B/L Elevated troponin Elevation of level of transaminase and lactic acid dehydrogenase (LDH) Epistaxis Esophageal varices with hemorrhage Fever Fever, unknown origin 04/14/16 Fluid overload Foot pain GI bleed Gram-positive bacteremia Hepatic encephalopathy (03/10/16) Hyperlipidemia (09/04/12) Incisional hernia (01/15/15) Increased body mass index Mild epistaxis 12/21/15 Nausea Pancytopenia Physical deconditioning Pleural effusion Pneumonia Portal hypertension Sepsis Sepsis Sepsis syndrome Thyroid nodule right; [place] 2.3cm nodule; neg. biopsy Uninodular goiter Tubular adenoma (04/12/13) Surgical History Colonoscopy - IV Sedation (04/12/13) DR. Bhumika CLAYTON Open Carpal Tunnel release RIGHT PROCEDURES OTHER CERVICAL FUS ANT discectomy [place] [facility] NEGATIVE THYROID BX S/P carpal tunnel release right S/P cervical spinal fusion anterior; discectomy S/P cervical spinal fusion anterior;discectomy S/P tonsillectomy Status post biopsy of thyroid gland 09/18/08 neg Status post carpal tunnel release Status post cervical spinal arthrodesis Status post tonsillectomy Tonsillectomy Family History Mother Pancreatic cancer Father Diabetes Essential hypertension Stroke Sister Heart disease Brother Bone cancer Liver cancer Maternal Grandfather No problems noted. Paternal Grandfather No problems noted. Maternal Grandmother , OLD AGE at age 89. No problems noted. Paternal Grandmother Breast cancer Sister Diabetes Colon cancer Rectal cancer Sister Diabetes Son No problems noted. Son No problems noted. Daughter No problems noted. Daughter Alcohol abuse Asthma Social History Smoking/Tobacco Use Status: Former Tobacco Use Tobacco: How many years used: 2 Second Hand Exposure: Yes Smoking risk assessment performed?: Yes Alcohol Intake: current Alcohol Intake frequency: holidays/special occasions only Drug use: Never Substance use type: does not use Counseling given: No Household members: spouse and children Housing: house Communication Needs: None Do you need help understanding health information?: Rarely Pets and animals: Yes Pets and animals: dog(s) Sexually active: No Do you think of yourself as: straight/heterosexual Current gender identity: female What is your relationship status?: How often do you talk on the phone with friends or family?: three or more times per week How often do you get together with friends or relatives?: once per week How often do you attend congregational or rastafarian services?: 1-3 times per year Do you belong to any clubs or organized social groups?: no Panel score (0-1 are the most socially isolated patients): 2 What type of physical activity do you participate in: decline to answer Duration: < 15 minutes/day Frequency: 1-2 times per week Lyubov/Nondenominational: Gnosticism Special lyubov needs: No Seatbelt use: always Helmet use: No Drive intox or ride w/intox service parts driver: No Do you feel safe at home: Yes Do you feel safe in your relationship?: Yes Exam Narrative Exam Narrative: Mayra is lying in bed. She is talking in complete sentences. She appears depressed. Her heart is regular there is a harsh harsh murmur that can be heard throughout her chest. She does have crackles more so on the left than the right. Her abdomen is mildly tender. Her legs have significant edema with fissures and elephantiasis Results Last Vital Signs Temp 98.2 F 05/10/21 10:30 Pulse 88 05/10/21 10:30 Resp 22 05/10/21 10:30 BP 128/54 L 05/10/21 10:30 Pulse Ox 93 05/10/21 10:30 Labs Result diagrams: 05/10/21 06:50 05/10/21 06:50 Labs: Laboratory Results - last 24 hr 05/09/21 05/10/21 05/10/21 22:40 06:50 06:50 WBC 3.45 L RBC 2.73 L Hgb 8.2 L Hct 25.5 L MCV 93.4 MCH 30.0 MCHC 32.2 RDW 14.7 H Plt Count 75 L MPV 10.9 Immature Gran % 0.6 Neutrophils % 51.2 Lymphocytes % 18.0 Monocytes % 20.6 Eosinophils % 8.4 Basophils % 1.2 Nucleated RBC % 0 Absolute Neutrophils 1.77 Absolute Lymphocytes 0.62 L Absolute Monocytes 0.71 Absolute Eosinophils 0.29 Absolute Basophils 0.04 RBC Morphology See Below Basophilic Stippling Present D-Dimer VBG Lactate Sodium 133 L Potassium 3.7 Chloride 92 L Carbon Dioxide 37.1 H Anion Gap 3.9 BUN 41 H Creatinine 1.8 H Estimated GFR/1.73 m2 28.33 Glucose 214 H Calcium 8.8 Magnesium 2.0 Ferritin 63 Total Bilirubin Conjugated Bilirubin AST ALT Alkaline Phosphatase Creatine Kinase 194 H Troponin I 2.44 H* C-Reactive Protein 2.36 H Total Protein Albumin Procalcitonin Urine Color Urine Clarity Urine pH Ur Specific [place] Urine Protein Urine Ketones Urine Blood Urine Nitrite Urine Bilirubin Urine Urobilinogen Ur Leukocyte Esterase Urine RBC Urine WBC Ur Epithelial Cells Urine Crystals Urine Bacteria Urine Casts Urine Mucus Urine Other Ur Culture Indicated? Urine Glucose COVID-19 Source Nasal/Nares SARS-CoV-2 (PCR) POSITIVE A* 05/10/21 05/10/21 05/10/21 06:50 06:50 06:50 WBC RBC Hgb Hct MCV MCH MCHC RDW Plt Count MPV Immature Gran % Neutrophils % Lymphocytes % Monocytes % Eosinophils % Basophils % Nucleated RBC % Absolute Neutrophils Absolute Lymphocytes Absolute Monocytes Absolute Eosinophils Absolute Basophils RBC Morphology Basophilic Stippling D-Dimer 494 VBG Lactate 2.8 H* Sodium Potassium Chloride Carbon Dioxide Anion Gap BUN Creatinine Estimated GFR/1.73 m2 Glucose Calcium Magnesium Ferritin Total Bilirubin 2.1 H Conjugated Bilirubin 1.3 H AST 80 H ALT 42 Alkaline Phosphatase 188 H Creatine Kinase Troponin I C-Reactive Protein Total Protein 5.9 L Albumin 2.7 L Procalcitonin 0.5 Urine Color Urine Clarity Urine pH Ur Specific [place] Urine Protein Urine Ketones Urine Blood Urine Nitrite Urine Bilirubin Urine Urobilinogen Ur Leukocyte Esterase Urine RBC Urine WBC Ur Epithelial Cells Urine Crystals Urine Bacteria Urine Casts Urine Mucus Urine Other Ur Culture Indicated? Urine Glucose COVID-19 Source SARS-CoV-2 (PCR) 05/10/21 05/10/21 10:08 11:15 WBC RBC Hgb Hct MCV MCH MCHC RDW Plt Count MPV Immature Gran % Neutrophils % Lymphocytes % Monocytes % Eosinophils % Basophils % Nucleated RBC % Absolute Neutrophils Absolute Lymphocytes Absolute Monocytes Absolute Eosinophils Absolute Basophils RBC Morphology Basophilic Stippling D-Dimer VBG Lactate Sodium Potassium Chloride Carbon Dioxide Anion Gap BUN Creatinine Estimated GFR/1.73 m2 Glucose Calcium Magnesium Ferritin Total Bilirubin Conjugated Bilirubin AST ALT Alkaline Phosphatase Creatine Kinase Troponin I 2.32 H* C-Reactive Protein Total Protein Albumin Procalcitonin Urine Color Yellow Urine Clarity Clear Urine pH 5.5 Ur Specific [place] 1.020 Urine Protein Negative Urine Ketones Negative Urine Blood Moderate H Urine Nitrite Negative Urine Bilirubin Negative Urine Urobilinogen 0.2 Ur Leukocyte Esterase Negative Urine RBC 10-20 H Urine WBC 3-5 Ur Epithelial Cells Rare Urine Crystals Negative Urine Bacteria Few Urine Casts Negative Urine Mucus Negative Urine Other Negative Ur Culture Indicated? C&S Done As Ordered Urine Glucose Negative COVID-19 Source SARS-CoV-2 (PCR)
[2021-05-10] MEDS: Tenecteplase 50 MG KIT IVP (14:21)
[2021-05-10] MEDS: Normal Saline Flush 10 ML SYR (14:22)
--- NOTE | 2021-05-10 16:25 | NUR.NOTE ---
patient was given tnk and she was advised of risk and to she did give consent for giving tnk. she did understand risk and was asked twice before giving medicationNursing Note:
== END 2021-05-10 15:20 | DRG 280 ==
LOC: ER 19:29 → MS 20:42 → ICU 05-10 12:56
PROVIDERS: Internal Medicine; Nurse Practitioner Acute Care; Admitting Provider Family Medicine; Emergency Provider Emergency Medicine; PCP Family Medicine; Visit Provider Family Medicine
DX: I11.0 Hypertensive heart disease with heart failure (principal); U07.1 COVID-19; I21.29 ST elevation (STEMI) myocardial infarction involving other sites; K76.6 Portal hypertension; Z68.41 Body mass index [BMI] 40.0-44.9, adult; L97.528 Non-pressure chronic ulcer of other part of left foot with other specified severity; I85.10 Secondary esophageal varices without bleeding; I50.33 Acute on chronic diastolic (congestive) heart failure; R16.0 Hepatomegaly, not elsewhere classified; K86.9 Disease of pancreas, unspecified; I89.0 Lymphedema, not elsewhere classified; D50.9 Iron deficiency anemia, unspecified; K74.69 Other cirrhosis of liver; E11.9 Type 2 diabetes mellitus without complications; I35.0 Nonrheumatic aortic (valve) stenosis; Z98.1 Arthrodesis status; E78.5 Hyperlipidemia, unspecified; Z86.718 Personal history of other venous thrombosis and embolism; Z87.891 Personal history of nicotine dependence; E66.9 Obesity, unspecified; Z20.822 Contact with and (suspected) exposure to COVID-19; I87.2 Venous insufficiency (chronic) (peripheral)
CPT/HCPCS: 36410; 36415; 71275; 80048; 80053; 80076; 82550; 84145; 85027; 87040; 87077; 87635; 93005; 96365; 96375; 99285; 71045; 81003; 81015; 82607; 82728; 83540; 83550; 83605; 83735; 83880; 84484; 85025; 85379; 86140; 87086; 87186; 93010; 99223; 99233; 99239; J0696; J1644; J1940; J2405; J3101; J3490